=== PATIENT | female | born 1965 | race Caucasian/White ===

== ENCOUNTER → 2022-10-05 | Outpatient (CLI) | payer OTHER ==
[2022-10-05 14:31] VITALS: BP 128/80; PULSE 55; TEMP 97.7; BMI 47.8
--- NOTE | 2022-10-05 16:00 | P.HPBAR ---
Bariatric H&P - History & Physicial H&P Date: 10/05/22 History & Physicial: Visit/CC: initial clinic visit Patient initial contact: Initial weight: Initial weight in pounds: Height: 5 ft 3 in Initial BMI: Last weight: Current weight: 122.47 kg Current weight in pounds: 270.00 Current BMI: 47.8 [place] body weight (based on NIH guidelines): 52.163 kg Excess body weight loss: The patient is a 56 year-old F who presents for Bariatric Assessment. Patient presents interested in sleeve gastrectomy. Patient with significant morbidities. Follows with her primary care physician, pulmonary, and cardiology. Had a myocardial infarction requiring stent placement approximately one year ago. Patient with underlying COPD and asthma. States she has gained 120 pounds over the last 2-3 years because of her steroid use for COPD. Additional medical issues include atrial fibrillation, hypertension, hypercholesterolemia, gallstones, GERD, chronic back pain. Patient had previous sleep apnea studding that was normal. She is a history of previous alcohol and drug abuse history with sobriety for the last 3 years. She rarely smokes a cigarette but used to be a heavy smoker. No history of liver disease. States she has borderline diabetes with a A1c of 5.9. No previous abdominal surgeries. No previous DVT or dysphagia. She has not had an upper endoscopy. Patient is on eloquis and Plavix. Patient is on home oxygen usually 2 L but sometimes up to 3 L. Review of Systems The patient denies any acute changes in vision or hearing, no dysphagia or odynophagia, no chest pain or shortness of breath, no dysuria or hematuria, no headache, no runny nose, no rectal bleeding or melena, no unexplained weight loss Past Medical History History of Any Multi-Drug Resistant Organisms: None Reported Smoking Status: Current some day smoker Surgical - Exam Vital Signs Temp Pulse BP 97.7 F 55 L 128/80 10/05/22 14:24 10/05/22 14:24 10/05/22 14:24 Physical exam: General: Well-developed, well-nourished HEENT: Normocephalic, sclerae nonicteric Abdomen: Nontender, nondistended Extremities: No edema Neuro: Alert and oriented Bariatric Assessment & Plan (1) Morbid obesity with BMI of 45.0-49.9, adult Narrative/Plan: 6-year-old female with morbid obesity and associated comorbidities. Surgical options reviewed with the patient in detail. Risks and benefits of the procedures along with the expected postoperative course and weight loss discussed in detail. All questions answered. The patient remains interested in sleeve gastrectomy at this time. The patient certainly higher risk given the numerous comorbidities. 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 She states there interested in her proceeding with bariatric surgery. We'll plan preoperative EGD. We'll obtain appropriate preoperative documentation from patient's primary care physician, binder coverstitch, payroll machine operator, and psychological assessment. Status: Acute Bariatric Checklist Checklist: Plan: Checklist: EGD: 1. Hiatal hernia: 2. H. Pylori: HgbA1c: Vitamin D: Smoking: Primary care physician referral: dr ashraf Psychiatry clearance: Cardiology clearance: Sleep study: Diet journal: VTE risk score: VTE risk level: Rehab needs at discharge:
== END | disposition home or self-care (01) ==
LOC: BARWHC3 13:44
PROVIDERS: ATTEND Surgery
DX: E66.01 Morbid (severe) obesity due to excess calories (principal); J44.9 Chronic obstructive pulmonary disease, unspecified; E78.00 Pure hypercholesterolemia, unspecified; I48.91 Unspecified atrial fibrillation; I10 Essential (primary) hypertension; K21.9 Gastro-esophageal reflux disease without esophagitis; K80.20 Calculus of gallbladder without cholecystitis without obstruction; M54.9 Dorsalgia, unspecified; F17.210 Nicotine dependence, cigarettes, uncomplicated; Z68.42 Body mass index [BMI] 45.0-49.9, adult; Z98.84 Bariatric surgery status
CPT/HCPCS: 99202

== ENCOUNTER → 2022-10-05 | Outpatient (CLI) | payer OTHER ==
[2022-10-06 02:03] LABS: HCT 42.7 % (37.2-46.3); HGB 12.6 g/dL (12.0-15.0); MCH 27.6 pg (27.0-32.0); MCHC 29.5 g/dL (32.0-37.0); MCV 93.6 fL (80.0-97.0); Mean Platelet Volume 10.7 fL (9.5-12.2); NRBC Per 100 WBC 0 /100 WBCS (0.0-0.0); Platelet Count 255 X 10*3/uL (140-440); RBC 4.56 X 10*6/uL (4.10-5.20); RDW 15.9 % (11.5-14.5); WBC 10.44 X 10*3/uL (4.50-10.00)
[2022-10-06 09:36] LABS: African American GFR (CKD) 118.9 (60.0-200.0); Albumin/Globulin Ratio 1.48 (1.60-3.17); Anion Gap 11.5 mmol/L (10.00-18.00); BUN/Creat Ratio 20.5 Ratio (12.00-20.00); Blood Urea Nitrogen 12.3 mg/dL (9.0-27.0); Calcium 9.3 mg/dL (8.7-10.3); Carbon Dioxide 29.5 mmol/L (20.0-27.5); Globulin 2.7 g/dL (1.6-3.3); Non-African American GFR(CKD) 102.6 (60.0-200.0); Potassium 4.1 mmol/L (3.5-5.5); Total Bilirubin 0.4 mg/dL (0.30-1.20); Total Protein 6.7 g/dL (6.2-8.2)
== END | disposition home or self-care (01) ==
LOC: LABWHC1 15:17
PROVIDERS: ATTEND Surgery
DX: E66.01 Morbid (severe) obesity due to excess calories (principal); K90.89 Other intestinal malabsorption; E55.9 Vitamin D deficiency, unspecified
CPT/HCPCS: 36415; 80053; 82306; 82607; 82746; 83036; 83540; 84425; 85027; 93005

== ENCOUNTER 2022-12-05 10:45 | Day surgery (SDC) | payer OTHER ==
[2022-11-30 12:31] VITALS: BMI 48.6
[~2022-12-05 10:45] MED LIST: LACTATED RINGERS 1,000 ML IV SCH; LIDOCAINE 1% (10MG/ML) FOR IV START INTRADERMA PRN
[2022-12-05 11:53] VITALS: TEMP 98.6
[2022-12-05] MEDS ORDERED: PROPOFOL 10 MG/ML 20 ML VIAL IV ONE (12:12)
[2022-12-05] MEDS ORDERED: KETAMINE 10 MG/ML 20 ML VIAL ONE (12:12)
--- NOTE | 2022-12-05 12:15 | P.GSHP ---
History of Present Illness H&P Date: 12/05/22 Chief Complaint: GERD 57-year-old female here today for EGD. Patient being evaluated for possible sleeve gastrectomy. Patient with chronic reflux symptoms. Past Medical History Past Medical History: Atrial Fibrillation, Asthma, COPD, Hyperlipidemia, Hypertension, Myocardial Infarction ([place]), Respiratory Disorder Additional Past Medical History / Comment(s): wears oxygen 3lnc when mobile Last Myocardial Infarction Date:: 2021 History of Any Multi-Drug Resistant Organisms: None Reported Past Surgical History: Heart Catheterization With Stent, Orthopedic Surgery Additional Past Surgical History / Comment(s): metal plate right arm, oral surgery fracture jawed,hx gallstones Past Anesthesia/Blood Transfusion Reactions: No Reported Reaction Additional Past Anesthesia/Blood Transfusion Reaction / Comment(s): No blood transfusion Date of Last Stent Placement:: 2021 Smoking Status: Current some day smoker - Past Family History Mother Family Medical History: Cancer Additional Family Medical History / Comment(s): uterine, breast, lymph nodes Medications and Allergies Home Medications Medication Instructions Recorded Confirmed Type Apixaban [Eliquis] 5 mg PO BID 10/26/22 12/05/22 History Atorvastatin [Lipitor] 40 mg PO HS 10/26/22 12/05/22 History Cetirizine HCl 10 mg PO DAILY 10/26/22 11/30/22 History Clopidogrel [Plavix] 75 mg PO DAILY 10/26/22 11/30/22 History Ergocalciferol [Vitamin D2 (1250 50,000 unit PO WEEKLY 10/26/22 12/05/22 History Mcg = 11032 Iu)] FLUoxetine HCL [PROzac] 40 mg PO DAILY 10/26/22 12/05/22 History Folic Acid 1 mg PO DAILY 10/26/22 12/05/22 History Gabapentin [Neurontin] 300 mg PO BID 10/26/22 12/05/22 History HYDROcodone/APAP 5-325MG [[place] 1 tab PO TID 10/26/22 12/05/22 History 5-325] Metoprolol Tartrate [Lopressor] 50 mg PO BID 10/26/22 11/30/22 History Mirtazapine [Remeron] 15 mg PO HS 10/26/22 12/05/22 History Montelukast [Singulair] 10 mg PO DAILY 10/26/22 12/05/22 History Omeprazole [PriLOSEC] 20 mg PO DAILY 10/26/22 11/30/22 History lisinopriL [Zestril] 10 mg PO DAILY 10/26/22 11/30/22 History Fluticasone/Umeclidin/Vilanter 1 inhalation INHALATION DAILY 11/30/22 11/30/22 History [Trelegy Ellipta 100-62.5-25] Liraglutide [Saxenda] 0.6 mg SQ DAILY 11/30/22 12/05/22 History Allergies Allergy/AdvReac Type Severity Reaction Status Date / Time NSAIDS (Non-Steroidal Allergy Rash/Hives Verified 12/05/22 11:49 Anti-Inflamma tetracycline Allergy Rash/Hives Verified 12/05/22 11:49 Surgical - Exam Vital Signs Temp Pulse Resp BP Pulse Ox 98.6 F 79 22 119/73 95 12/05/22 11:52 12/05/22 11:52 12/05/22 11:52 12/05/22 11:52 12/05/22 11:52 Physical exam: General: Well-developed, well-nourished HEENT: Normocephalic, sclerae nonicteric Abdomen: Nontender, nondistended Extremities: No edema Neuro: Alert and oriented Assessment and Plan (1) GERD (gastroesophageal reflux disease) Narrative/Plan: Will proceed with upper endoscopy Current Visit: Yes Status: Acute Code(s): K21.9 - GASTRO-ESOPHAGEAL REFLUX DISEASE WITHOUT ESOPHAGITIS SNOMED Code(s): 935626748
--- NOTE | 2022-12-05 12:26 | P.PCN ---
Date of Procedure: 12/05/22 Procedure(s) Performed: Preoperative Dx: GERD, presurgical Postoperative Dx: Mild gastritis Procedure: EGD with Bx Anesthesia: Sedation Endoscopist: Dr. uLgo Specimens: Antrum Endoscopic Procedure: The patient was on the endoscopy table in the left decubitus position. The Olympus gastroscope was inserted into the oropharynx and passed under direct visualization to the region of the third portion of the duodenum. From that point the scope was slowly withdrawn inspecting all surfaces carefully. There were no neoplastic inflammatory or polypoid lesions throughout the duodenum. The pylorus was widely patent. The stomach was carefully inspected. There was mild gastritis present. A biopsy of the antrum took place to rule out H. pylori. Retroflexion revealed a normal hiatus. The esophagus was then carefully examined. There were no neoplastic inflammatory or polypoid lesions throughout the visualized esophagus. The patient was then taken to the recovery room in stable condition per anesthesia guidelines. Recommendations: Await biopsy results. Continue preoperative workup.
[2022-12-05 12:37] VITALS: RESP 16
[2022-12-05 13:09] VITALS: BP 110/71; PULSE 85
== END 2022-12-05 13:36 | disposition home or self-care (01) ==
LOC: ORWHC2ENDO 10:45
PROVIDERS: ATTEND Surgery
DX: K29.50 Unspecified chronic gastritis without bleeding (principal); K21.9 Gastro-esophageal reflux disease without esophagitis; I48.91 Unspecified atrial fibrillation; J44.9 Chronic obstructive pulmonary disease, unspecified; E78.5 Hyperlipidemia, unspecified; I10 Essential (primary) hypertension; I25.2 Old myocardial infarction; F17.200 Nicotine dependence, unspecified, uncomplicated; Z80.3 Family history of malignant neoplasm of breast; Z79.01 Long term (current) use of anticoagulants; Z79.899 Other long term (current) drug therapy
CPT/HCPCS: 88305; 43239; J2704

== ENCOUNTER 2023-06-21 08:45 | Inpatient (IN) | payer OTHER ==
[2023-06-21 09:14] LABS: Basophils % (A) 0 %; Eosinophils # (A) 0.1 k/uL (0-0.7); Eosinophils % (A) 1 %; HCT 43.4 % (34.0-46.0); HGB 13.4 gm/dL (11.4-16.0); Hypochromasia Marked; Lymphocytes % (A) 8 %; MCH 27.8 pg (25.0-35.0); MCHC 30.9 g/dL (31.0-37.0); Mean Platelet Volume 7.9; Monocytes # (A) 0.4 k/uL (0-1.0); Monocytes % (A) 4 %; Neutrophils # (A) 10.3 k/uL (1.3-7.7); Neutrophils % (A) 87 %; Platelet Count 280 k/uL (150-450); RBC 4.82 m/uL (3.80-5.40); RDW 14.5 % (11.5-15.5); WBC 11.9 k/uL (3.8-10.6)
--- NOTE | 2023-06-21 09:17 | ED ---
General Adult HPI - General Stated complaint: YADIRA Time Seen by Provider: 06/21/23 08:48 Source: patient, RN notes reviewed Mode of arrival: EMS Limitations: no limitations - History of Present Illness Initial comments: 57-year-old female presents emergency department via EMS chief complaint of dyspnea. Patient states she has COPD she states she was a smoker up until 3 days ago. Patient states that she has mildly productive cough. She does have a history of A-fib. She states that she did take her Eliquis and metoprolol this morning. She denies any nausea vomit diarrhea constipation no leg swelling she states nothing is improving her breathing she did have a DuoNeb treatment and steroids prior to arrival via EMS. - Related Data Home Medications Medication Instructions Recorded Confirmed Apixaban [Eliquis] 5 mg PO BID 10/26/22 12/05/22 Atorvastatin [Lipitor] 40 mg PO HS 10/26/22 12/05/22 Cetirizine HCl 10 mg PO DAILY 10/26/22 11/30/22 Clopidogrel [Plavix] 75 mg PO DAILY 10/26/22 11/30/22 Ergocalciferol [Vitamin D2 (1250 50,000 unit PO WEEKLY 10/26/22 12/05/22 Mcg = 73235 Iu)] FLUoxetine HCL [PROzac] 40 mg PO DAILY 10/26/22 12/05/22 Folic Acid 1 mg PO DAILY 10/26/22 12/05/22 Gabapentin [Neurontin] 300 mg PO BID 10/26/22 12/05/22 HYDROcodone/APAP 5-325MG [[place] 1 tab PO TID 10/26/22 12/05/22 5-325] Metoprolol Tartrate [Lopressor] 50 mg PO BID 10/26/22 11/30/22 Mirtazapine [Remeron] 15 mg PO HS 10/26/22 12/05/22 Montelukast [Singulair] 10 mg PO DAILY 10/26/22 12/05/22 Omeprazole [PriLOSEC] 20 mg PO DAILY 10/26/22 11/30/22 lisinopriL [Zestril] 10 mg PO DAILY 10/26/22 11/30/22 Fluticasone/Umeclidin/Vilanter 1 inhalation INHALATION DAILY 11/30/22 11/30/22 [Trelegy Ellipta 100-62.5-25] Liraglutide [Saxenda] 0.6 mg SQ DAILY 11/30/22 12/05/22 Allergies Allergy/AdvReac Type Severity Reaction Status Date / Time ibuprofen Allergy Rash/Hives Verified 06/21/23 08:58 NSAIDS (Non-Steroidal Allergy Rash/Hives Verified 12/05/22 11:49 Anti-Inflamma tetracycline Allergy Rash/Hives Verified 12/05/22 11:49 Review of Systems ROS Statement: Those systems with pertinent positive or pertinent negative responses have been documented in the HPI. ROS Other: All systems not noted in ROS Statement are negative. Past Medical History Past Medical History: Atrial Fibrillation, Asthma, COPD, Hyperlipidemia, Hypertension, Myocardial Infarction ([place]), Respiratory Disorder Additional Past Medical History / Comment(s): wears oxygen 3lnc when mobile Last Myocardial Infarction Date:: 2021 History of Any Multi-Drug Resistant Organisms: None Reported Past Surgical History: Heart Catheterization With Stent, Orthopedic Surgery Additional Past Surgical History / Comment(s): metal plate right arm, oral surgery fracture jawed,hx gallstones Past Anesthesia/Blood Transfusion Reactions: No Reported Reaction Additional Past Anesthesia/Blood Transfusion Reaction / Comment(s): No blood transfusion Date of Last Stent Placement:: 2021 Past Psychological History: Anxiety, Depression Smoking Status: Current some day smoker - Past Family History Mother Family Medical History: Cancer Additional Family Medical History / Comment(s): uterine, breast, lymph nodes General Exam Limitations: no limitations General appearance: alert, in no apparent distress Head exam: Present: atraumatic, normocephalic, normal inspection Eye exam: Present: normal appearance, PERRL, EOMI. Absent: scleral icterus, conjunctival injection, periorbital swelling ENT exam: Present: normal exam, normal oropharynx, mucous membranes moist Neck exam: Present: normal inspection, full ROM. Absent: tenderness, meningismus, lymphadenopathy Respiratory exam: Present: respiratory distress, wheezes. Absent: normal lung sounds bilaterally, rales, rhonchi, stridor Cardiovascular Exam: Present: normal heart sounds. Absent: tachycardia, irregular rhythm, systolic murmur, diastolic murmur, rubs, gallop, clicks Course Vital Signs 06/21/23 06/21/23 06/21/23 08:46 08:59 09:05 Temperature 101 F H Pulse Rate 129 H Respiratory 22 24 Rate Blood Pressure 128/110 O2 Sat by Pulse 90 L Oximetry Fraction of 60 Inspired Oxygen (FIO2) - Reevaluation(s) Reevaluation #1: 06/21/23 10:14 Patient was placed on BiPAP on arrival secondary to respiratory distress, no improvement after DuoNeb treatment. EKG Findings - EKG Comments: EKG Findings:: EKG performed at 8: 53 A-fib with RVR rate of 130 QRS 86 QT/QTc 274/351 - EKG Results: EKG: interpreted by EPIFANIO Medical Decision Making - Medical Decision Making I was pt. sent in by a medical professional or institution (, PA, CAR PRE COOLER, urgent care, hospital, or care home...) When possible be specific @ -No Did you speak to anyone other than the patient for history (EMS, parent, family, police, friend...)? What history was obtained from this source @ -EMS providing prehospital treatment, vitals Did you review nursing and triage notes (agree or disagree)? Why? @ -I reviewed and agree with nursing and triage notes Were old charts reviewed (outside hosp., previous admission, EMS record, old EKG, old radiological studies, urgent care reports/EKG's, care home records)? Report findings @ -No old charts were reviewed Differential Diagnosis (chest pain, altered mental status, abdominal pain women, abdominal pain men, vaginal bleeding, weakness, fever, dyspnea, syncope, headache, dizziness, GI bleed, back pain, seizure, CVA, palpatations, mental health, musculoskeletal)? @ -[Differential Dyspnea: Coronary syndrome, arrhythmia, tamponade, asthma, COPD, pulmonary embolism, pneumonia, pneumothorax, pulmonary effusion, anaphylaxis, diabetic ketoacidosis, flailed chest, pulmonary contusion, diaphragmatic rupture, anemia, neuromuscular, this is not meant to be an all-inclusive list. EKG interpreted by me (3pts min.). @ -As above X-rays interpreted by me (1pt min.). @ -Chest x-ray 1 view showing diffuse COPD changes, mild congestion, possible pulmonary edema CT interpreted by me (1pt min.). @ -None done U/S interpreted by me (1pt. min.). @ -None done What testing was considered but not performed or refused? (CT, X-rays, U/S, labs)? Why? @ -None What meds were considered but not given or refused? Why? @ -None Did you discuss the management of the patient with other professionals (ofelia sullivan i.e. , PA, CAR PRE CO[employer]ER, lab, RT, psych nurse, social professionals, manager protein, teacher, workplace rehabilitation officer, correctional casework specialist)? Give summary @ -[Sound physician for admission secondary to acute respiratory failure, requiring BiPAP, COPD exacerbation with A-fib RVR Was smoking cessation discussed for >3mins.? @ -I discussed smoking cessation for greater than 3 minutes. The risk of smoking were discussed with the patient including but not limited to risks of cancer, stroke, coronary artery disease and COPD. Also discussed with patient were multiple methods of quitting smoking. Lastly we discussed the financial cost of smoking. Was critical care preformed (if so, how long)? @ -35 minutes Were there social determinants of health that impacted care today? How? (Homelessness, low income, unemployed, alcoholism, drug addiction, transportation, low edu. Level, literacy, decrease access to med. care, correction, rehab)? @ -No Was there de-escalation of care discussed even if they declined (Discuss DNR or withdrawal of care, Hospice)? DNR status @ -No What co-morbidities impacted this encounter? (DM, HTN, Smoking, COPD, CAD, Cancer, CVA, ARF, Chemo, Hep., AIDS, mental health diagnosis, sleep apnea, morbid obesity)? @ -[COPD Was patient admitted / discharged? Hospital course, mention meds given and route, prescriptions, significant lab abnormalities, going to OR and other pertinent info. @ -Admitted patient presented in acute respiratory distress, respiratory failure patient was placed on BiPAP. Patient found to be in A-fib RVR with a history of A-fib. She is anticoagulated on Eliquis. Patient's fever was treated with Jun Mab. Patient was placed on Cardizem initial bolus, infusion. Patient is RSV positive patient will remain on BiPAP with consult to cardiology, pulmonology. Undiagnosed new problem with uncertain prognosis? @ -No Drug Therapy requiring intensive monitoring for toxicity (Heparin, Nitro, Insulin, Cardizem)? @ -No Were any procedures done? @ -No Diagnosis/symptom? @ -[A-fib RVR, COPD exacerbation, RSV with acute respiratory failure Acute, or Chronic, or Acute on Chronic? @ -Acute Uncomplicated (without systemic symptoms) or Complicated (systemic symptoms)? @ -Complicated Side effects of treatment? @ -[No Exacerbation, Progression, or Severe Exacerbation? @ -COPD exacerbation Poses a threat to life or bodily function? How? (Chest pain, [place], [place], pneumonia, PE, COPD, DKA, ARF, appy, cholecystitis, CVA, Diverticulitis, Homicidal, Suicidal, threat to staff... and all critical care pts) @ -Yes patient has respiratory distress, A-fib RVR, - Lab Data Result diagrams: 06/21/23 09:01 06/21/23 09:01 Lab Results 06/21/23 06/21/23 06/21/23 Range/Units 09:01 09:01 09:01 WBC 11.9 H (3.8-10.6) k/uL RBC 4.82 (3.80-5.40) m/uL Hgb 13.4 (11.4-16.0) gm/dL Hct 43.4 (34.0-46.0) % MCV 90.0 (80.0-100.0) fL MCH 27.8 (25.0-35.0) pg MCHC 30.9 L (31.0-37.0) g/dL RDW 14.5 (11.5-15.5) % Plt Count 280 (150-450) k/uL MPV 7.9 Neutrophils % 87 % Lymphocytes % 8 % Monocytes % 4 % Eosinophils % 1 % Basophils % 0 % Neutrophils # 10.3 H (1.3-7.7) k/uL Lymphocytes # 1.0 (1.0-4.8) k/uL Monocytes # 0.4 (0-1.0) k/uL Eosinophils # 0.1 (0-0.7) k/uL Basophils # 0.0 (0-0.2) k/uL Hypochromasia Marked PT 10.8 (10.0-12.5) sec INR 1.0 (<1.2) APTT 28.2 (22.0-30.0) sec Sodium 143 (137-145) mmol/L Potassium 3.7 (3.5-5.1) mmol/L Chloride 110 H (98-107) mmol/L Carbon Dioxide 29 (22-30) mmol/L Anion Gap 4 mmol/L BUN 15 (7-17) mg/dL Creatinine 0.43 L (0.52-1.04) mg/dL Est GFR (CKD-EPI)AfAm >90 (>60 ml/min/1.73 sqM) Est GFR (CKD-EPI)NonAf >90 (>60 ml/min/1.73 sqM) Glucose 106 H (74-99) mg/dL Plasma Lactic Acid Rom (0.7-2.0) mmol/L Calcium 8.3 L (8.4-10.2) mg/dL Magnesium 1.7 (1.6-2.3) mg/dL Total Bilirubin 0.5 (0.2-1.3) mg/dL AST 23 (14-36) U/L ALT 21 (4-34) U/L Alkaline Phosphatase 104 (38-126) U/L Troponin I (0.000-0.034) ng/mL NT-Pro-B Natriuret Pep 2910 pg/mL Total Protein 6.4 (6.3-8.2) g/dL Albumin 3.4 L (3.5-5.0) g/dL Influenza Type A (PCR) (Not Detectd) Influenza Type B (PCR) (Not Detectd) RSV (PCR) (Not Detectd) SARS-CoV-2 (PCR) (Not Detectd) 06/21/23 06/21/23 06/21/23 Range/Units 09:01 09:01 09:01 WBC (3.8-10.6) k/uL RBC (3.80-5.40) m/uL Hgb (11.4-16.0) gm/dL Hct (34.0-46.0) % MCV (80.0-100.0) fL MCH (25.0-35.0) pg MCHC (31.0-37.0) g/dL RDW (11.5-15.5) % Plt Count (150-450) k/uL MPV Neutrophils % % Lymphocytes % % Monocytes % % Eosinophils % % Basophils % % Neutrophils # (1.3-7.7) k/uL Lymphocytes # (1.0-4.8) k/uL Monocytes # (0-1.0) k/uL Eosinophils # (0-0.7) k/uL Basophils # (0-0.2) k/uL Hypochromasia PT (10.0-12.5) sec INR (<1.2) APTT (22.0-30.0) sec Sodium (137-145) mmol/L Potassium (3.5-5.1) mmol/L Chloride (98-107) mmol/L Carbon Dioxide (22-30) mmol/L Anion Gap mmol/L BUN (7-17) mg/dL Creatinine (0.52-1.04) mg/dL Est GFR (CKD-EPI)AfAm (>60 ml/min/1.73 sqM) Est GFR (CKD-EPI)NonAf (>60 ml/min/1.73 sqM) Glucose (74-99) mg/dL Plasma Lactic Acid Rom 1.2 (0.7-2.0) mmol/L Calcium (8.4-10.2) mg/dL Magnesium (1.6-2.3) mg/dL Total Bilirubin (0.2-1.3) mg/dL AST (14-36) U/L ALT (4-34) U/L Alkaline Phosphatase (38-126) U/L Troponin I <0.012 (0.000-0.034) ng/mL NT-Pro-B Natriuret Pep pg/mL Total Protein (6.3-8.2) g/dL Albumin (3.5-5.0) g/dL Influenza Type A (PCR) Not Detected (Not Detectd) Influenza Type B (PCR) Not Detected (Not Detectd) RSV (PCR) Detected A (Not Detectd) SARS-CoV-2 (PCR) Not Detected (Not Detectd) Critical Care Time Critical Care Time: Yes Total Critical Care Time: 35 Disposition Clinical Impression: RSV (acute bronchiolitis due to respiratory syncytial virus), COPD (chronic obstructive pulmonary disease), Acute respiratory failure, Atrial fibrillation with RVR Disposition: ADMITTED IP TO THIS HOSP Condition: Serious Referrals: Sugey Chester MD [Primary Care Provider] - 1-2 days Time of Disposition: 10:17
--- NOTE | 2023-06-21 09:23 | XR ---
EXAMINATION TYPE: XR chest 1V portable DATE OF EXAM: 06/21/2023 9:15 AM CLINICAL INDICATION:Female, 57 years old with history of SOB; [facility] COMPARISON: None TECHNIQUE: XR chest 1V portable Frontal view of the chest. FINDINGS: Lungs/Pleura: Low lung volumes are present. There is no evidence of pleural effusion, focal consolida tion, or pneumothorax. Pulmonary vascularity: Pulmonary vascular congestion. Heart/mediastinum: Cardiomediastinal silhouette is prominent in size. Musculoskeletal: No acute osseous pathology. IMPRESSION: Low lung volumes with a generalized hazy appearance which could represent atelectasis versus pulmonar y edema.
[2023-06-21] MEDS ORDERED: ACETAMINOPHEN IV (For NPO) 1,000 MG in EMPTY BAG 1 BAG IVPB STA (09:26)
[2023-06-21 09:28] LABS: ALT 21 U/L (4-34); AST 23 U/L (14-36); African American GFR (CKD) >90 (>60 ml/min/1.73 sqM); Albumin 3.4 g/dL (3.5-5.0); Alkaline Phosphatase 104 U/L (38-126); Anion Gap 4 mmol/L; Blood Urea Nitrogen 15 mg/dL (7-17); Calcium 8.3 mg/dL (8.4-10.2); Carbon Dioxide 29 mmol/L (22-30); Chloride 110 mmol/L (98-107); Glucose 106 mg/dL (74-99); Magnesium 1.7 mg/dL (1.6-2.3); Non-African American GFR(CKD) >90 (>60 ml/min/1.73 sqM); Potassium 3.7 mmol/L (3.5-5.1); Sodium 143 mmol/L (137-145); Total Bilirubin 0.5 mg/dL (0.2-1.3); Total Protein 6.4 g/dL (6.3-8.2)
[2023-06-21] MEDS ORDERED: DILTIAZEM DRIP BOLUS FROM BAG 1 MG SOLN IV ONE (09:28)
[2023-06-21 09:34] LABS: Partial Thromboplastin Time 28.2 sec (22.0-30.0); Prothrombin Time 10.8 sec (10.0-12.5)
[2023-06-21 09:36] LABS: NT-Pro-B-Type Natriuretic Pept 2910 pg/mL
[2023-06-21] MEDS: DILTIAZEM 125 MG in SODIUM CHLORIDE 0.9% 100 ML IV SCH (10:13)
[2023-06-21] MEDS ORDERED: ACETAMINOPHEN TAB 325 MG TAB PO PRN (10:17)
[2023-06-21] MEDS ORDERED: IPRATROPIUM-ALBUTEROL 3 ML NEB INHALATION PRN (10:17)
[2023-06-21] MEDS ORDERED: NALOXONE 0.4 MG/ML 1 ML VIAL IVP PRN (10:17)
[2023-06-21] MEDS: IPRATROPIUM-ALBUTEROL 3 ML NEB INHALATION SCH ×3 (11:20→19:38)
--- NOTE | 2023-06-21 12:12 | P.CRDCN ---
History of Present Illness History of present illness: HISTORY OF PRESENT ILLNESS: This is a 57-year-old female with a past medical history significant for coronary artery disease, paroxysmal atrial fibrillation, hypertension, hyperlipidemia, COPD, and nicotine dependence. Patient follows in the office with Dr. Owens. We have been asked to see the patient in consultation for A-fib RVR. Patient examined at the bedside in the emergency room. Patient states she has been feeling short of breath for the past 3 to 4 days. She decided to come to the emergency room for further evaluation. The patient was found to be positive for RSV. She is also being treated for a COPD exacerbation. She denies any chest pain or pressure. She is currently on a BiPAP and reports improvement in her shortness of breath. Patient was also found to be A-fib with RVR. She does have a known history of atrial fibrillation. She was started on IV Cardizem for rate control. She does report mild palpitations at the time of examination. Patient does report she is a current smoker. She states that she has not had a cigarette in about 4 days and is attempting to quit. The patient does report a history of coronary artery disease. She states that she had a heart attack in 2021. She reports undergoing a cardiac catheterization at that time at [facility]. She believes she had a stent placed at that time. The details of this are unknown at this time. DIAGNOSTICS: EKG reveals A-fib with RVR Chest xray low lung volumes with generalized hazy appearance could represent atelectasis versus pulmonary edema Laboratory data: WBC 11.9. Hemoglobin 13.4. Platelet count 280. Sodium 143. Potassium 3.7. BUN 15. Creatinine 0.43. Lactic acid 1.2. Troponin negative x 1. proBNP 2910. Current home cardiac medications include Eliquis 5 mg twice a day, Lipitor 40 mg at night, lisinopril 5 mg daily, metoprolol tartrate 50 mg twice a day Most recent echocardiogram obtained in August 2021 revealing ejection fraction 55%, mild to moderate mitral regurgitation, mild tricuspid regurgitation Cardiac catheterization history: 2021 per patient, however records are unavailable at this time. REVIEW OF SYSTEMS: At the time of my exam: CONSTITUTIONAL: Denies fever or chills. HEENT: Denies blurred vision, vision changes, or eye pain. Denies hemoptysis CARDIOVASCULAR: Denies chest pain. Denies orthopnea. Denies PND. Denies palpitations RESPIRATORY: Denies shortness of breath. GASTROINTESTINAL: Denies abdominal pain. Denies nausea or vomiting. HEMATOLOGIC: Denies bleeding disorders. GENITOURINARY: Denies any blood in urine. SKIN: Denies pruitis. Denies rash. PHYSICAL EXAM: VITAL SIGNS: Reviewed. GENERAL: Well-developed in no acute distress. HEENT: Head is normocephalic. Pupils are equal, round. Sclerae anicteric. Mucous membranes of the mouth are moist. Neck supple. No JVD or thyromegaly LUNGS: Respirations even and unlabored, currently on BiPAP. Lungs with expiratory wheezing noted throughout HEART: Tachycardic. Irregular rate and rhythm. S1 and S2 heard. Distant heart sounds. ABDOMEN: Soft. Nondistended. Nontender. EXTREMITIES: Normal range of motion. No clubbing or cyanosis. Peripheral pulses intact. Trace bilateral extremity edema NEUROLOGIC: Awake and alert. Oriented x 3. ASSESSMENT: Shortness of breath Acute COPD exacerbation Acute RSV infection Paroxysmal atrial fibrillation with RVR Acute on chronic hypoxic respiratory failure, currently on BiPAP, patient on oxygen outpatient Coronary artery disease with previous PCI, details unknown Hypertension Hyperlipidemia Nicotine dependence, patient states she quit smoking 4 days ago Morbid obesity: BMI 49.6 PLAN: Obtain 2D echo to assess cardiac structure and function Resume home cardiac medications Increase metoprolol to tartrate to 75 mg twice daily Continue IV Cardizem for rate control Continue telemetry monitoring Continue anticoagulation with Eliquis Obtain records from [facility] regarding patient's previous PCI Further recommendations pending patient course Nurse practitioner note has been reviewed by physician. Signing provider agrees with the documented findings, assessment, and plan of care documented by MANAGEMENT MANAGER as a scribe. Past Medical History Past Medical History: Atrial Fibrillation, Asthma, COPD, Hyperlipidemia, Hypertension, Myocardial Infarction ([place]), Respiratory Disorder Additional Past Medical History / Comment(s): wears oxygen 3lnc when mobile Last Myocardial Infarction Date:: 2021 History of Any Multi-Drug Resistant Organisms: None Reported Past Surgical History: Heart Catheterization With Stent, Orthopedic Surgery Additional Past Surgical History / Comment(s): metal plate right arm, oral surgery fracture jawed,hx gallstones Past Anesthesia/Blood Transfusion Reactions: No Reported Reaction Additional Past Anesthesia/Blood Transfusion Reaction / Comment(s): No blood transfusion Date of Last Stent Placement:: 2021 Past Psychological History: Anxiety, Depression Smoking Status: Current some day smoker - Past Family History Mother Family Medical History: Cancer Additional Family Medical History / Comment(s): uterine, breast, lymph nodes Medications and Allergies Home Medications Medication Instructions Recorded Confirmed Type Apixaban [Eliquis] 5 mg PO BID 10/26/22 06/21/23 History Atorvastatin [Lipitor] 40 mg PO HS 10/26/22 06/21/23 History Cetirizine HCl 10 mg PO DAILY 10/26/22 06/21/23 History FLUoxetine HCL [PROzac] 40 mg PO DAILY 10/26/22 06/21/23 History Folic Acid 1 mg PO DAILY 10/26/22 06/21/23 History Gabapentin [Neurontin] 300 mg PO BID 10/26/22 06/21/23 History HYDROcodone/APAP 5-325MG [[place] 1 tab PO TID 10/26/22 06/21/23 History 5-325] Metoprolol Tartrate [Lopressor] 50 mg PO BID 10/26/22 06/21/23 History Mirtazapine [Remeron] 15 mg PO HS 10/26/22 06/21/23 History Montelukast [Singulair] 10 mg PO DAILY 10/26/22 06/21/23 History Amoxic-Pot Clav 875-125Mg 1 tab PO Q12HR 06/21/23 06/21/23 History [Augmentin 875-125] Dulaglutide [Trulicity] 1.5 mg SQ SA 06/21/23 06/21/23 History Ergocalciferol [Vitamin D2 (1250 1,250 mcg PO SA 06/21/23 06/21/23 History Mcg = 91900 Iu)] Ipratropium-Albuterol Nebulize 3 ml INHALATION RT-QID 06/21/23 06/21/23 History [Duoneb 0.5 mg-3 mg/3 ml Soln] Omeprazole 20 mg PO DAILY 06/21/23 06/21/23 History lisinopriL [Zestril] 5 mg PO DAILY 06/21/23 06/21/23 History predniSONE [Deltasone] 40 mg PO DAILY 06/21/23 06/21/23 History Allergies Allergy/AdvReac Type Severity Reaction Status Date / Time ibuprofen Allergy Rash/Hives Verified 06/21/23 11:38 NSAIDS (Non-Steroidal Allergy Rash/Hives Verified 06/21/23 11:38 Anti-Inflamma tetracycline Allergy Rash/Hives Verified 06/21/23 11:38 Physical Exam Vitals: Vital Signs Temp Pulse Resp BP Pulse Ox FiO2 06/21/23 11:30 100 06/21/23 11:24 101 H 60 06/21/23 11:02 100.1 F H 108 H 26 H 110/64 94 L 06/21/23 10:19 125 H 132/83 93 L 06/21/23 09:05 60 06/21/23 08:59 24 06/21/23 08:46 101 F H 129 H 22 128/110 90 L Intake and Output 06/20/23 06/21/23 06/21/23 22:59 06:59 14:59 Other: Weight 127.006 kg Results 06/21/23 09:01 06/21/23 09:01 Cardiac Enzymes 06/21/23 06/21/23 Range/Units 09:01 09:01 AST 23 (14-36) U/L Troponin I <0.012 (0.000-0.034) ng/mL Coagulation 06/21/23 Range/Units 09:01 PT 10.8 (10.0-12.5) sec APTT 28.2 (22.0-30.0) sec CBC 06/21/23 Range/Units 09:01 WBC 11.9 H (3.8-10.6) k/uL RBC 4.82 (3.80-5.40) m/uL Hgb 13.4 (11.4-16.0) gm/dL Hct 43.4 (34.0-46.0) % Plt Count 280 (150-450) k/uL Comprehensive Metabolic Panel 06/21/23 Range/Units 09:01 Sodium 143 (137-145) mmol/L Potassium 3.7 (3.5-5.1) mmol/L Chloride 110 H (98-107) mmol/L Carbon Dioxide 29 (22-30) mmol/L BUN 15 (7-17) mg/dL Creatinine 0.43 L (0.52-1.04) mg/dL Glucose 106 H (74-99) mg/dL Calcium 8.3 L (8.4-10.2) mg/dL AST 23 (14-36) U/L ALT 21 (4-34) U/L Alkaline Phosphatase 104 (38-126) U/L Total Protein 6.4 (6.3-8.2) g/dL Albumin 3.4 L (3.5-5.0) g/dL Current Medications Generic Name Dose Route Start Last Admin Trade Name Freq PRN Reason Stop Dose Admin Acetaminophen 650 mg 06/21/23 10:17 Acetaminophen Tab 325 Mg Tab PO Q4HR PRN Mild Pain or Fever > 100.5 Albuterol/Ipratropium 3 ml 06/21/23 12:00 06/21/23 11:20 Ipratropium-Albuterol 3 Ml Neb INHALATION 3 ml RT-QID SHAWNA Administration Albuterol/Ipratropium 3 ml 06/21/23 10:17 Ipratropium-Albuterol 3 Ml Neb INHALATION RT-Q2H PRN Shortness Of Breath Or Wheezing Apixaban 5 mg 06/21/23 21:00 Apixaban 5 Mg Tab PO BID [facility] Protocol Atorvastatin Calcium 40 mg 06/21/23 21:00 Atorvastatin 40 Mg Tab PO HS SHAWNA Diltiazem HCl 125 mg/ Sodium 125 mls @ 0 mls/hr 06/21/23 10:00 06/21/23 10:13 Chloride IV 5 mls/hr .Q0M SHAWNA 5 mls/hr Administration Protocol Per Protocol Lisinopril 10 mg 06/22/23 09:00 Lisinopril 10 Mg Tab PO DAILY [facility] Methylprednisolone Sodium Succinate 60 mg 06/21/23 12:00 Methylprednisolone Sod Succi 125 Mg/2 Ml Vial IV Q6HR [facility] Metoprolol Tartrate 75 mg 06/21/23 21:00 Metoprolol Tartrate 25 Mg Tab PO BID [facility] Naloxone HCl 0.2 mg 06/21/23 10:17 Naloxone 0.4 Mg/Ml 1 Ml Vial IVP Q2M PRN Opioid Reversal Intake and Output 06/20/23 06/21/23 06/21/23 22:59 06:59 14:59 Other: Weight 127.006 kg Patient Weight 06/22/23 06:59 Weight 127.006 kg 06/21/23 09:01 06/21/23 09:01
[2023-06-21] MEDS: methylPREDNISolone SOD SUCCI 125 MG/2 ML VIAL IV SCH ×2 (13:26→17:21)
[2023-06-21] MEDS: GABAPENTIN 300 MG CAP PO SCH ×2 (13:48→21:05)
[2023-06-21] MEDS: HYDROcodone/APAP 5-325MG 1 EACH TAB PO SCH ×2 (13:48→21:21)
[2023-06-21] MEDS ORDERED: DEXTROSE 50% SYRINGE 50 ML IVP PRN ×2 (14:16)
--- NOTE | 2023-06-21 14:20 | P.PN ---
Subjective Progress Note Date: 06/21/23 Patient is a 57-year-old female with a past medical history of COPD on 3 L nasal cannula, GERD, diabetes mellitus, atrial fibrillation, coronary artery disease status post stent in 2021, hypertension, hyperlipidemia who presents to the ED with shortness of breath for 5 days. Patient states that she had called her PCP 2 days ago because she knew that she was developing a bronchitis. Her PCP had prescribed her Augmentin and prednisone which she took for the past 2 days. Patient states that she was also was doing nebulizer treatment at home. She said that for the past 3-day her oxygen was in the 80s despite having increased her oxygen to 4 L. She states that her symptoms were not improving. This is what prompted her to come into the ED. In the ED patient was found to have RSV positive. Her WBC was 11.9. Patient was placed on BiPAP in the ED for difficulty in breathing. She was also found to have a fever 100.1. She was also found to be in A-fib with RVR. Chest x-ray showed low lung volumes with generalized hazy appearance which could represent atelectasis versus pulmonary edema. Patient was started on Cardizem drip. Patient states that she quit smoking 3 days ago. Patient then referred to admission and for further evaluation by cardiology and pulmonology. ROS: 10 ROS reviewed and are negative except as noted in HPI Physical exam General: [Alert and oriented, well nourished, no acute distress]. Eye: [PERRL, EOMI, normal conjunctiva]. HENT: [Normocephalic, clear tympanic membranes, normal hearing, moist oral mucosa, no scleral icterus, no sinus tenderness]. Neck: [Supple, non-tender, no carotid bruits, no JVD, no lymphadenopathy]. Lungs: [Bilateral wheezing, non-labored respiration]. Heart: [Normal rate, regular rhythm, no murmur, gallop, trace bilateral pitting edema]. Abdomen: [Soft, non-tender, non-distended, normal bowel sounds, no masses]. Morbidly obese Musculoskeletal: [Normal range of motion and strength, no tenderness or swell ing]. Skin: [Skin is warm, dry and pink, no rashes or lesions]. Neurologic: [Awake, alert, and oriented X3, CN II-XII intact]. Psychiatric: [Cooperative, appropriate mood and affect]. Assessment and plan RSV bronchitis Sepsis on admission with tachycardia and fever COPD exacerbation Acute on chronic hypoxic respiratory failure Patient on 2 to 3 L nasal cannula at home Continue with Solu-Medrol 60 mg every 6 hours, DuoNebs as needed and standing, azithromycin Wean off BiPAP as tolerated Pulmonology and cardiology consult A-fib with RVR Cardizem drip Cardiology increased patient's metoprolol to 75 mg p.o. twice daily Resume Eliquis Diabetes mellitus Hold home medications Will start the patient on Levemir 10 units at bedtime Sliding scale insulin Diabetic neuropathy Continue gabapentin Hypertension Resume home meds Hyperlipidemia Resume atorvastatin Anxiety depression Continue home meds DVT prophylaxis: Eliquis Objective - Vital Signs Vital signs: Vital Signs Temp 99 F 06/21/23 12:39 Pulse 109 H 06/21/23 12:39 Resp 26 H 06/21/23 11:02 BP 104/93 06/21/23 12:39 Pulse Ox 95 06/21/23 12:39 FiO2 60 06/21/23 11:24 Intake & Output 06/20/23 06/21/23 06/21/23 18:59 06:59 18:59 Weight 127.006 kg - Labs CBC & Chem 7: 06/21/23 09:01 06/21/23 09:01 Labs: Abnormal Lab Results - Last 24 Hours (Table) 06/21/23 06/21/23 06/21/23 Range/Units 09:01 09:01 09:01 WBC 11.9 H (3.8-10.6) k/uL MCHC 30.9 L (31.0-37.0) g/dL Neutrophils # 10.3 H (1.3-7.7) k/uL Chloride 110 H (98-107) mmol/L Creatinine 0.43 L (0.52-1.04) mg/dL Glucose 106 H (74-99) mg/dL Calcium 8.3 L (8.4-10.2) mg/dL Albumin 3.4 L (3.5-5.0) g/dL RSV (PCR) Detected A (Not Detectd)
[2023-06-21] MEDS: AZITHROMYCIN 500 MG TAB PO SCH (16:00)
--- NOTE | 2023-06-21 16:04 | P.CNPUL ---
History of Present Illness Consult date: 06/21/23 Requesting physician: Prakash Gomez Reason for consult: dyspnea, COPD, hypoxemia Chief complaint: Shortness of breath History of present illness: This is a pleasant 57-year-old female patient with a known history of chronic obstructive pulmonary disease, oxygen dependent, chronic and ongoing tobacco dependence of 44 years, atrial fibrillation anticoagulated with Eliquis, previous myocardial infarction, anxiety/depression. She presented here to the emergency room early this morning with complaints of a 4-day history of increasing shortness of breath cough congestion fever. She was found to be in atrial fibrillation with a rapid ventricular response. She was initiated on a Cardizem drip at 5 mg/h. She was hypoxemic requiring BiPAP support 12/5 and 60% FiO2. Chest x-ray reveals low lung volumes with generalized hazy appearance which could represent atelectasis versus pulmonary edema. White count 11.9. Hemoglobin 13.4. Platelets 280. Sodium 143. Potassium 3.7. Bicarb 29. BUN 15. Creatinine 0.43. Glucose 106. proBNP 2910. Troponin negative x 1. She is found to be positive for RSV. She is seen today in consultation in the emergency department. She is currently sitting up in the stretcher. Remains on BiPAP. Remains quite dyspneic with conversation. She is alert and oriented. She has been initiated on DuoNeb inhalations, Singulair, Solu-Medrol, antibiotic s in the form of azithromycin. Resumed on her Eliquis. Review of Systems REVIEW OF SYSTEMS: CONSTITUTIONAL: Denies any recent significant weight loss or weight gain. EYES: Denies change in vision. EARS, NOSE, MOUTH, THROAT: Denies headaches, denies sore throat. CARDIOVASCULAR: Denies chest pain, palpitations or syncopal episodes. RESPIRATORY: Positive for shortness of breath, cough, congestion no hemoptysis. GASTROINTESTINAL: Denies change in appetite, denies abdominal pain GENITOURINARY: Denies hematuria, denies infections. MUSKULOSKELETAL: Denies pain, denies swelling. INTEGUMENTARY: Denies rash, denies eczema. NEUROLOGICAL: Denies recent memory loss, no recent seizure activity. PSYCHIATRIC: Denies anxiety, denies depression. HEMATOLOGIC/LYMPHATIC: Denies anemia, denies enlarged lymph nodes. Past Medical History Past Medical History: Atrial Fibrillation, Asthma, COPD, Hyperlipidemia, Hypertension, Myocardial Infarction ([place]), Respiratory Disorder Additional Past Medical History / Comment(s): wears oxygen 3lnc when mobile Last Myocardial Infarction Date:: 2021 History of Any Multi-Drug Resistant Organisms: None Reported Past Surgical History: Heart Catheterization With Stent, Orthopedic Surgery Additional Past Surgical History / Comment(s): metal plate right arm, oral surgery fracture jawed,hx gallstones Past Anesthesia/Blood Transfusion Reactions: No Reported Reaction Additional Past Anesthesia/Blood Transfusion Reaction / Comment(s): No blood transfusion Date of Last Stent Placement:: 2021 Past Psychological History: Anxiety, Depression Smoking Status: Current some day smoker - Past Family History Mother Family Medical History: Cancer Additional Family Medical History / Comment(s): uterine, breast, lymph nodes Medications and Allergies Home Medications Medication Instructions Recorded Confirmed Type Apixaban [Eliquis] 5 mg PO BID 10/26/22 06/21/23 History Atorvastatin [Lipitor] 40 mg PO HS 10/26/22 06/21/23 History Cetirizine HCl 10 mg PO DAILY 10/26/22 06/21/23 History FLUoxetine HCL [PROzac] 40 mg PO DAILY 10/26/22 06/21/23 History Folic Acid 1 mg PO DAILY 10/26/22 06/21/23 History Gabapentin [Neurontin] 300 mg PO BID 10/26/22 06/21/23 History HYDROcodone/APAP 5-325MG [[place] 1 tab PO TID 10/26/22 06/21/23 History 5-325] Metoprolol Tartrate [Lopressor] 50 mg PO BID 10/26/22 06/21/23 History Mirtazapine [Remeron] 15 mg PO HS 10/26/22 06/21/23 History Montelukast [Singulair] 10 mg PO DAILY 10/26/22 06/21/23 History Amoxic-Pot Clav 875-125Mg 1 tab PO Q12HR 06/21/23 06/21/23 History [Augmentin 875-125] Dulaglutide [Trulicity] 1.5 mg SQ SA 06/21/23 06/21/23 History Ergocalciferol [Vitamin D2 (1250 1,250 mcg PO SA 06/21/23 06/21/23 History Mcg = 84039 Iu)] Ipratropium-Albuterol Nebulize 3 ml INHALATION RT-QID 06/21/23 06/21/23 History [Duoneb 0.5 mg-3 mg/3 ml Soln] Omeprazole 20 mg PO DAILY 06/21/23 06/21/23 History lisinopriL [Zestril] 5 mg PO DAILY 06/21/23 06/21/23 History predniSONE [Deltasone] 40 mg PO DAILY 06/21/23 06/21/23 History Allergies Allergy/AdvReac Type Severity Reaction Status Date / Time ibuprofen Allergy Rash/Hives Verified 06/21/23 11:38 NSAIDS (Non-Steroidal Allergy Rash/Hives Verified 06/21/23 11:38 Anti-Inflamma tetracycline Allergy Rash/Hives Verified 06/21/23 11:38 Physical Exam Vitals: Vital Signs Temp Pulse Resp BP Pulse Ox FiO2 06/21/23 12:39 99 F 109 H 104/93 95 06/21/23 11:30 100 06/21/23 11:24 101 H 60 06/21/23 11:02 100.1 F H 108 H 26 H 110/64 94 L 06/21/23 10:19 125 H 132/83 93 L 06/21/23 09:05 60 06/21/23 08:59 24 06/21/23 08:46 101 F H 129 H 22 128/110 90 L Intake and Output 06/20/23 06/21/23 06/21/23 22:59 06:59 14:59 Other: Weight 127.006 kg GENERAL EXAM: Alert, pleasant, obese 57-year-old female, on BiPAP 12/5 and 60% FiO2, comfortable in no apparent distress. HEAD: Normocephalic. EYES: Normal reaction of pupils, equal size. NOSE: Clear with pink turbinates. THROAT: No erythema or exudates. NECK: No masses, no JVD. CHEST: No chest wall deformity. LUNGS: Equal air entry with no crackles, wheeze, rhonchi or dullness. CVS: S1 and S2 normal with no audible murmur, regular rhythm. ABDOMEN: No hepatosplenomegaly, normal bowel sounds, no guarding or rigidity. SPINE: No scoliosis or deformity SKIN: No rashes CENTRAL NERVOUS SYSTEM: No focal deficits, tone is normal in all 4 extremities. EXTREMITIES: There is no peripheral edema. No clubbing, no cyanosis. Peripheral pulses are intact. Results - Laboratory Findings CBC and BMP: 06/21/23 09:01 06/21/23 09:01 PT/INR, D-dimer PT 10.8 sec (10.0-12.5) 06/21/23 09:01 INR 1.0 (<1.2) 06/21/23 09:01 Abnormal lab findings: Abnormal Labs 06/21/23 06/21/23 06/21/23 09:01 09:01 09:01 WBC 11.9 H MCHC 30.9 L Neutrophils # 10.3 H Chloride 110 H Creatinine 0.43 L Glucose 106 H Calcium 8.3 L Albumin 3.4 L RSV (PCR) Detected A - Diagnostic Findings Chest x-ray: image reviewed Assessment and Plan Assessment: Acute exacerbation of chronic obstructive pulmonary disease complicated by RSV Acute on chronic hypoxemic respiratory failure secondary to above Chronic and ongoing tobacco dependence of 44 years Chronic atrial fibrillation now with rapid ventricular response Morbid obesity with a BMI of 49.6 kg/m Diabetes mellitus History of anxiety/depression Hypertension Plan: The patient was seen and evaluated Chest x-ray, labs and medications reviewed Continue DuoNeb ventilations, Solu-Medrol Add Pulmicort and Perforomist inhalations Continue antibiotics for now Check a procalcitonin Titrate down the FiO2 as tolerated Educated regarding the importance of complete smoking cessation NicoDerm patch will be offered Educated regarding the importance of weight reduction Continued on a Cardizem drip Anticoagulated with Eliquis We will continue to follow and make further recommendations based on her clinical status I have personally seen and examined the patient, performed the documentation and the assessment and plan as written. Number of minutes spent on the visit: 20.
[2023-06-21 17:13] LABS: Glucose,Whole Blood 174 mg/dL (70-110)
[2023-06-21] MEDS: INSULIN ASPART (NovoLOG) 100 UNIT/ML VIAL SQ SCH ×2 (18:34→21:22)
[2023-06-21] MEDS ORDERED: ATORVASTATIN 40 MG TAB PO SCH (21:00)
[2023-06-21] MEDS ORDERED: METOPROLOL TARTRATE 50 MG TAB PO SCH ×2 (21:00)
[2023-06-21 21:05] LABS: Glucose,Whole Blood 174 mg/dL (70-110)
[2023-06-21] MEDS: METOPROLOL TARTRATE 25 MG TAB PO SCH (21:05)
[2023-06-21] MEDS: ATORVASTATIN 40 MG TAB PO SCH (21:05)
[2023-06-21] MEDS: APIXABAN 5 MG TAB PO SCH (21:05)
[2023-06-21] MEDS: INSULIN DETEMIR (LEVEMIR) 100 UNIT/ML SYR SQ SCH (21:06)
[2023-06-21] MEDS: MIRTAZAPINE 15 MG TAB PO SCH (21:22)
[2023-06-22] MEDS: methylPREDNISolone SOD SUCCI 125 MG/2 ML VIAL IV SCH ×5 (01:21→23:37)
[2023-06-22] MEDS ORDERED: NITROGLYCERIN SL TABS 0.4 MG TAB SUBLINGUAL PRN (03:59)
[2023-06-22] MEDS: DILTIAZEM 125 MG in SODIUM CHLORIDE 0.9% 100 ML IV SCH (04:26)
[2023-06-22 04:43] LABS: Basophils % (A) 0 %; Eosinophils % (A) 0 %; HCT 40.6 % (34.0-46.0); HGB 12.5 gm/dL (11.4-16.0); Hypochromasia Marked; Lymphocytes # (A) 0.7 k/uL (1.0-4.8); Lymphocytes % (A) 6 %; MCH 27.9 pg (25.0-35.0); MCHC 30.8 g/dL (31.0-37.0); MCV 90.5 fL (80.0-100.0); Mean Platelet Volume 8.3; Monocytes # (A) 0.3 k/uL (0-1.0); Monocytes % (A) 3 %; Neutrophils # (A) 10.6 k/uL (1.3-7.7); Neutrophils % (A) 91 %; Platelet Count 288 k/uL (150-450); RBC 4.48 m/uL (3.80-5.40); RDW 14.3 % (11.5-15.5); WBC 11.7 k/uL (3.8-10.6)
[2023-06-22 05:07] LABS: African American GFR (CKD) >90 (>60 ml/min/1.73 sqM); Anion Gap 6 mmol/L; Blood Urea Nitrogen 34 mg/dL (7-17); Calcium 9.1 mg/dL (8.4-10.2); Carbon Dioxide 30 mmol/L (22-30); Chloride 104 mmol/L (98-107); Glucose 158 mg/dL (74-99); Non-African American GFR(CKD) >90 (>60 ml/min/1.73 sqM); Potassium 4.5 mmol/L (3.5-5.1); Sodium 140 mmol/L (137-145)
[2023-06-22 06:31] LABS: Glucose,Whole Blood 161 mg/dL (70-110)
[2023-06-22] MEDS: INSULIN ASPART (NovoLOG) 100 UNIT/ML VIAL SQ SCH ×4 (06:46→22:14)
[2023-06-22] MEDS: PANTOPRAZOLE 40 MG TABLET PO SCH (06:47)
[2023-06-22] MEDS: IPRATROPIUM-ALBUTEROL 3 ML NEB INHALATION SCH ×4 (08:36→22:05)
[2023-06-22] MEDS ORDERED: lisinopriL 5 MG TAB PO SCH (09:00)
[2023-06-22] MEDS ORDERED: lisinopriL 10 MG TAB PO SCH (09:00)
[2023-06-22] MEDS: lisinopriL 5 MG TAB PO SCH (09:09)
[2023-06-22] MEDS: APIXABAN 5 MG TAB PO SCH ×2 (09:09→22:13)
[2023-06-22] MEDS: GABAPENTIN 300 MG CAP PO SCH ×2 (09:09→22:13)
[2023-06-22] MEDS: FOLIC ACID 1 MG TAB PO SCH (09:09)
[2023-06-22] MEDS: LORATADINE 10 MG TAB PO SCH (09:09)
[2023-06-22] MEDS: AZITHROMYCIN 500 MG TAB PO SCH (09:09)
[2023-06-22] MEDS: FLUoxetine HCL 20 MG CAP PO SCH (09:09)
[2023-06-22] MEDS: MONTELUKAST 10 MG TAB PO SCH (09:09)
[2023-06-22] MEDS: HYDROcodone/APAP 5-325MG 1 EACH TAB PO SCH ×3 (09:10→22:14)
[2023-06-22] MEDS: METOPROLOL TARTRATE 25 MG TAB PO SCH ×2 (09:14→22:13)
--- NOTE | 2023-06-22 10:05 | CA ---
Transthoracic Echo Report Name: Viola Fernandez Age: 57 Gender: F : 1965 Exam Date: 06/21/2023 15:45 Exam Location: [place] [facility] Ht (in): 63 Wt (lb): 280 Ordering Physician: Marisol Menendez Attending/Referring Phys: [id number], Shon Sweater Designer Damion Nino RDCS Procedure CPT: Indications: LV Function, afib Cardiac Hx: Technical Quality: Technically difficult study Contrast 1: Definity Total Dose (mL): 2 Contrast 2: Total Dose (mL): MEASUREMENTS (Male / Female) Normal Values 2D ECHO LV Diastolic Diameter PLAX 3.1 cm 4.2 - 5.9 / 3.9 - 5.3 cm LV Systolic Diameter PLAX 2.5 cm IVS Diastolic Thickness 1.3 cm 0.6 - 1.0 / 0.6 - 0.9 cm LVPW Diastolic Thickness 1.3 cm 0.6 - 1.0 / 0.6 - 0.9 cm LV Relative Wall Thickness 0.9 RV Internal Dim ED PLAX 2.7 cm LVOT Diameter 2.6 cm Aortic Root Diameter 2.9 cm LA Systolic Diameter LX 3.3 cm 3.0 - 4.0 / 2.7 - 3.8 cm LV Diastolic Volume MOD 4C 49.9 cm??? LV Systolic Volume MOD 4C 24.2 cm??? LV Ejection Fraction MOD 4C 51.5 % LV Cardiac Index MOD 4C 1162.6 cm???/min???m??? LV Diastolic Length 4C 7.2 cm LV Systolic Length 4C 6.3 cm Ascending Aorta Diameter 3.3 cm DOPPLER AV Peak Velocity 103.4 cm/s AV Peak Gradient 4.3 mmHg MV Peak Velocity 131.3 cm/s MV Peak Gradient 6.9 mmHg MV Mean Velocity 61.9 cm/s MV Mean Gradient 2.1 mmHg MV Velocity Time Integral 36.0 cm PV Peak Velocity 88.2 cm/s PV Peak Gradient 3.1 mmHg FINDINGS Left Ventricle Normal LV size and wall thickness. Left ventricular ejection fraction is estimated at 50-55 %. Right Ventricle Normal right ventricular size. Right Atrium Normal right atrial size. Left Atrium Normal left atrial size. Mitral Valve Structurally normal mitral valve. Trace MR. Aortic Valve Aortic valve not well visualized. Grossly normal. No aortic stenosis. No aortic regurgitation. Tricuspid Valve Tricuspid valve not well visualized. No tricuspid regurgitation. Pulmonic Valve Pulmonic valve not well visualized. No pulmonic regurgitation. Pericardium Normal pericardium. Aorta Normal size aortic root and proximal ascending aorta. CONCLUSIONS Technically very difficult and limited study. Normal LV systolic function Is very difficult to comment on the intracardiac valves Previewed by: Dr. Kenneth Cavazos MD (Electronically Signed) Final Date: 22 June 2023 10:05
--- NOTE | 2023-06-22 10:11 | P.PN ---
Subjective Progress Note Date: 06/22/23 Hospital course Patient is a 57-year-old female with a past medical history of COPD on 3 L nasal cannula, GERD, diabetes mellitus, atrial fibrillation, coronary artery disease status post stent in 2021, hypertension, hyperlipidemia who presents to the ED with shortness of breath for 5 days. Patient states that she had called her PCP 2 days ago because she knew that she was developing a bronchitis. Her PCP had prescribed her Augmentin and prednisone which she took for the past 2 days. Patient states that she was also was doing nebulizer treatment at home. She said that for the past 3-day her oxygen was in the 80s despite having increased her oxygen to 4 L. She states that her symptoms were not improving. This is what prompted her to come into the ED. In the ED patient was found to have RSV positive. Her WBC was 11.9. Patient was placed on BiPAP in the ED for di fficulty in breathing. She was also found to have a fever 100.1. She was also found to be in A-fib with RVR. Chest x-ray showed low lung volumes with generalized hazy appearance which could represent atelectasis versus pulmonary edema. Patient was started on Cardizem drip. Patient states that she quit smoking 3 days ago. Patient then referred to admission and for further evaluation by cardiology and pulmonology. Today patient states that she is feeling slightly better compared to yesterday. She is currently on the BiPAP. She states that she has been briefly off the BiPAP since yesterday. Physical exam General examination - Alert and Oriented 3 in NAD Heart - + S1S2 no murmurs Lungs -bilateral wheezing Abdomen soft NT ND +ve BS, morbidly obese Extremities -trace bilateral pitting edema GRIDDLE COOK - Moving all 4 extremities spontaneously Psych - Calm and cooperative Assessment and plan RSV bronchitis Sepsis on admission with tachycardia and fever COPD exacerbation Acute on chronic hypoxic respiratory failure Patient on 2 to 3 L nasal cannula at home Continue with Solu-Medrol 60 mg every 6 hours, DuoNebs as needed and standing, azithromycin Wean off BiPAP as tolerated Pulmonology following A-fib with RVR Wean off Cardizem drip as tolerated Cardiology increased patient's metoprolol to 75 mg p.o. twice daily Echocardiogram was a limited study however did show normal LV function Resume Eliquis Diabetes mellitus Hold home medications Will start the patient on Levemir 10 units at bedtime Sliding scale insulin Blood glucose well-controlled Hemoglobin A1c 6.1 Diabetic neuropathy Continue gabapentin Hypertension Resume home meds Hyperlipidemia Resume atorvastatin Anxiety depression Continue home meds Morbidly obese Encourage weight loss DVT prophylaxis: Eliquis Objective - Vital Signs Vital signs: Vital Signs Temp 97.6 F 06/22/23 04:00 Pulse 97 06/22/23 08:46 Resp 20 06/22/23 08:00 BP 125/77 06/22/23 08:00 Pulse Ox 97 06/22/23 08:36 FiO2 35 06/22/23 08:36 Intake & Output 06/21/23 06/22/23 06/22/23 18:59 06:59 18:59 Intake Total 341.083 180 Balance 341.083 180 Weight 127.006 kg 125.6 kg Intake: Intake, IV Titration 91.083 Amount Diltiazem 125 mg In 91.083 Sodium Chloride 0.9% 100 ml @ Per Protocol IV .Q0M [facility] Rx#:[id number] Oral 250 180 Other: Voiding Method Bedside Commode Bedside Commode # Voids 1 - Labs CBC & Chem 7: 06/22/23 04:21 06/22/23 04:21 Labs: Abnormal Lab Results - Last 24 Hours (Table) 06/21/23 06/21/23 06/22/23 Range/Units 17:11 21:04 04:21 WBC (3.8-10.6) k/uL MCHC (31.0-37.0) g/dL Neutrophils # (1.3-7.7) k/uL Lymphocytes # (1.0-4.8) k/uL BUN (7-17) mg/dL Glucose (74-99) mg/dL POC Glucose (mg/dL) 174 H 174 H (70-110) mg/dL Hemoglobin A1c 6.1 H (<=6.0) % 06/22/23 06/22/23 06/22/23 Range/Units 04:21 04:21 06:21 WBC 11.7 H (3.8-10.6) k/uL MCHC 30.8 L (31.0-37.0) g/dL Neutrophils # 10.6 H (1.3-7.7) k/uL Lymphocytes # 0.7 L (1.0-4.8) k/uL BUN 34 H (7-17) mg/dL Glucose 158 H (74-99) mg/dL POC Glucose (mg/dL) 161 H (70-110) mg/dL Hemoglobin A1c (<=6.0) %
[2023-06-22 11:20] LABS: Glucose,Whole Blood 131 mg/dL (70-110)
[2023-06-22] MEDS: guaiFENesin 600 MG TABLET.ER PO SCH ×2 (12:02→22:14)
--- NOTE | 2023-06-22 13:06 | P.PN ---
Subjective HISTORY OF PRESENT ILLNESS: This is a 57-year-old female with a past medical history significant for coronary artery disease, paroxysmal atrial fibrillation, hypertension, hyperlipidemia, COPD, and nicotine dependence. Patient follows in the office with Dr. Owens. We have been asked to see the patient in consultation for A-fib RVR. Patient examined at the bedside in the emergency room. Patient states she has been feeling short of breath for the past 3 to 4 days. She decided to come to the emergency room for further evaluation. The patient was found to be positive for RSV. She is also being treated for a COPD exacerbation. She denies any chest pain or pressure. She is currently on a BiPAP and reports improvement in her shortness of breath. Patient was also found to be A-fib with RVR. She does have a known history of atrial fibrillation. She was started on IV Cardizem for rate control. She does report mild palpitations at the time of examination. Patient does report she is a current smoker. She states that she has not had a cigarette in about 4 days and is attempting to quit. The patient does report a history of coronary artery disease. She states that she had a heart attack in 2021. She reports undergoing a cardiac catheterization at that time at [facility]. She believes she had a stent placed at that time. The details of this are unknown at this time. DIAGNOSTICS: EKG reveals A-fib with RVR Chest xray low lung volumes with generalized hazy appearance could represent atelectasis versus pulmonary edema Laboratory data: WBC 11.9. Hemoglobin 13.4. Platelet count 280. Sodium 143. Potassium 3.7. BUN 15. Creatinine 0.43. Lactic acid 1.2. Troponin negative x 1. proBNP 2910. Current home cardiac medications include Eliquis 5 mg twice a day, Lipitor 40 mg at night, lisinopril 5 mg daily, metoprolol tartrate 50 mg twice a day Most recent echocardiogram obtained in August 2021 revealing ejection fraction 55%, mild to moderate mitral regurgitation, mild tricuspid regurgitation Cardiac catheterization history: 2021 per patient, however records are unavailable at this time. June 22, 2023 Patient examined this morning at the bedside. Patient currently denies chest pain or pressure. She continues to report shortness of breath. She is wearing BiPAP at the time of examination. Telemetry reveals atrial fibrillation with a controlled ventricular rate in the 90s. Echocardiogram completed revealing ejection fraction 50 to 55% PHYSICAL EXAM: VITAL SIGNS: Reviewed. GENERAL: Well-developed in no acute distress. HEENT: Head is normocephalic. Pupils are equal, round. Sclerae anicteric. Mucous membranes of the mouth are moist. Neck supple. No JVD or thyromegaly LUNGS: Respirations even and unlabored, currently on BiPAP. Lungs with expiratory wheezing noted throughout HEART: Tachycardic. Irregular rate and rhythm. S1 and S2 heard. Distant heart sounds. ABDOMEN: Soft. Nondistended. Nontender. EXTREMITIES: Normal range of motion. No clubbing or cyanosis. Peripheral pulses intact. Trace bilateral extremity edema NEUROLOGIC: Awake and alert. Oriented x 3. ASSESSMENT: Shortness of breath Acute COPD exacerbation Acute RSV infection Paroxysmal atrial fibrillation with RVR Acute on chronic hypoxic respiratory failure, currently on BiPAP, patient on oxygen outpatient Coronary artery disease with previous PCI, details unknown Hypertension Hyperlipidemia Nicotine dependence, patient states she quit smoking 4 days ago Morbid obesity: BMI 49.6 PLAN: Discontinue IV Cardizem Continue additional cardiac medications Continue telemetry monitoring Further recommendations pending patient course Nurse practitioner note has been reviewed by physician. Signing provider agrees with the documented findings, assessment, and plan of care documented by REIMBURSEMENT MANAGER as a scribe. Objective - Vital Signs Vital signs: Vital Signs Temp 97.9 F 06/22/23 12:00 Pulse 94 06/22/23 12:41 Resp 20 06/22/23 12:00 BP 105/75 06/22/23 12:00 Pulse Ox 93 L 06/22/23 12:00 FiO2 35 06/22/23 08:36 Intake & Output 06/21/23 06/22/23 06/22/23 18:59 06:59 18:59 Intake Total 341.083 180 Balance 341.083 180 Weight 127.006 kg 125.6 kg Intake: Intake, IV Titration 91.083 Amount Diltiazem 125 mg In 91.083 Sodium Chloride 0.9% 100 ml @ Per Protocol IV .Q0M [facility] Rx#:[id number] Oral 250 180 Other: Voiding Method Bedside Commode Bedside Commode # Voids 1 1 - Labs CBC & Chem 7: 06/22/23 04:21 06/22/23 04:21 Labs: Abnormal Lab Results - Last 24 Hours (Table) 06/21/23 06/21/23 06/22/23 Range/Units 17:11 21:04 04:21 WBC (3.8-10.6) k/uL MCHC (31.0-37.0) g/dL Neutrophils # (1.3-7.7) k/uL Lymphocytes # (1.0-4.8) k/uL BUN (7-17) mg/dL Glucose (74-99) mg/dL POC Glucose (mg/dL) 174 H 174 H (70-110) mg/dL Hemoglobin A1c 6.1 H (<=6.0) % 06/22/23 06/22/23 06/22/23 Range/Units 04:21 04:21 06:21 WBC 11.7 H (3.8-10.6) k/uL MCHC 30.8 L (31.0-37.0) g/dL Neutrophils # 10.6 H (1.3-7.7) k/uL Lymphocytes # 0.7 L (1.0-4.8) k/uL BUN 34 H (7-17) mg/dL Glucose 158 H (74-99) mg/dL POC Glucose (mg/dL) 161 H (70-110) mg/dL Hemoglobin A1c (<=6.0) % 06/22/23 Range/Units 11:18 WBC (3.8-10.6) k/uL MCHC (31.0-37.0) g/dL Neutrophils # (1.3-7.7) k/uL Lymphocytes # (1.0-4.8) k/uL BUN (7-17) mg/dL Glucose (74-99) mg/dL POC Glucose (mg/dL) 131 H (70-110) mg/dL Hemoglobin A1c (<=6.0) %
--- NOTE | 2023-06-22 16:01 | P.PN ---
Subjective Progress Note Date: 06/22/23 Principal diagnosis: Acute exacerbation of COPD with RSV tracheobronchitis, chronic atrial fibrillation with RVR This is a pleasant 57-year-old female patient with a known history of chronic obstructive pulmonary disease, oxygen dependent, chronic and ongoing tobacco dependence of 44 years, atrial fibrillation anticoagulated with Eliquis, previous myocardial infarction, anxiety/depression. She presented here to the emergency room early this morning with complaints of a 4-day history of increasing shortness of breath cough congestion fever. She was found to be in atrial fibrillation with a rapid ventricular response. She was initiated on a Cardizem drip at 5 mg/h. She was hypoxemic requiring BiPAP support 12/5 and 60% FiO2. Chest x-ray reveals low lung volumes with generalized hazy appearance which could represent atelectasis versus pulmonary edema. White count 11.9. Hemoglobin 13.4. Platelets 280. Sodium 143. Potassium 3.7. Bicarb 29. BUN 15. Creatinine 0.43. Glucose 106. proBNP 2910. Troponin negative x 1. She is found to be positive for RSV. She is seen today in consultation in the emergency department. She is currently sitting up in the stretcher. Remains on BiPAP. Remains quite dyspneic with conversation. She is alert and oriented. She has been initiated on DuoNeb inhalations, Singulair, Solu-Medrol, antibiotics in the form of azithromycin. Resumed on her Eliquis. Patient was reevaluated today on 06/22/2023, remains on BiPAP, she is on 12/35%, continues to have intermittent cough and wheezing, minimal improvement, definitely not getting any worse. WBC count is 11.7 hemoglobin 12.5 basic metabolic profile is normal Objective - Vital Signs Vital signs: Vital Signs Temp 97.9 F 06/22/23 12:00 Pulse 97 06/22/23 14:00 Resp 20 06/22/23 14:00 BP 105/75 06/22/23 12:00 Pulse Ox 93 L 06/22/23 12:00 FiO2 35 06/22/23 08:36 Intake & Output 06/21/23 06/22/23 06/22/23 18:59 06:59 18:59 Intake Total 341.083 360 Balance 341.083 360 Weight 127.006 kg 125.6 kg Intake: Intake, IV Titration 91.083 Amount Diltiazem 125 mg In 91.083 Sodium Chloride 0.9% 100 ml @ Per Protocol IV .Q0M [facility] Rx#:[id number] Oral 250 360 Other: Voiding Method Bedside Commode Bedside Commode # Voids 1 1 - Exam General: The patient is awake and alert, obese, in no distress, on BiPAP Skin: Skin is warm and dry and no rashes or lesions are noted. Eye: Pupils are equal, round and reactive to light, extra-ocular movements are intact; there is normal conjunctiva bilaterally. Ears, nose, mouth and throat: There are moist mucous membranes and no oral lesions. Neck: The neck is supple, there is no tenderness or JVD. Cardiovascular: Irregularly irregular rhythm.. No murmur, rub or gallop is appreciated. Respiratory: Rhonchi and wheezes noted bilaterally. Gastrointestinal: Soft, non-distended, non-tender abdomen without masses or organomegaly noted. There is no rebound or guarding present. Bowel sounds are unremarkable. Back: There is no tenderness to palpation in the midline. There is no obvious deformity. Neurological: CN II-XII intact, Cranial nerves III through XII are intact. There are no obvious motor or sensory deficits. Coordination appears grossly intact. Speech is normal. Psychiatric: Cooperative, appropriate mood & affect, normal judgment. - Labs CBC & Chem 7: 06/22/23 04:21 06/22/23 04:21 Labs: Abnormal Lab Results - Last 24 Hours (Table) 06/21/23 06/21/23 06/22/23 Range/Units 17:11 21:04 04:21 WBC (3.8-10.6) k/uL MCHC (31.0-37.0) g/dL Neutrophils # (1.3-7.7) k/uL Lymphocytes # (1.0-4.8) k/uL BUN (7-17) mg/dL Glucose (74-99) mg/dL POC Glucose (mg/dL) 174 H 174 H (70-110) mg/dL Hemoglobin A1c 6.1 H (<=6.0) % 06/22/23 06/22/23 06/22/23 Range/Units 04:21 04:21 06:21 WBC 11.7 H (3.8-10.6) k/uL MCHC 30.8 L (31.0-37.0) g/dL Neutrophils # 10.6 H (1.3-7.7) k/uL Lymphocytes # 0.7 L (1.0-4.8) k/uL BUN 34 H (7-17) mg/dL Glucose 158 H (74-99) mg/dL POC Glucose (mg/dL) 161 H (70-110) mg/dL Hemoglobin A1c (<=6.0) % 06/22/23 Range/Units 11:18 WBC (3.8-10.6) k/uL MCHC (31.0-37.0) g/dL Neutrophils # (1.3-7.7) k/uL Lymphocytes # (1.0-4.8) k/uL BUN (7-17) mg/dL Glucose (74-99) mg/dL POC Glucose (mg/dL) 131 H (70-110) mg/dL Hemoglobin A1c (<=6.0) % Assessment and Plan Assessment: Impression: Acute exacerbation of COPD Acute RSV tracheobronchitis Paroxysmal atrial fibrillation with RVR Acute on chronic hypoxic respiratory failure requiring intermittently BiPAP History of underlying coronary artery disease and previous PCI Benign essential hypertension Dyslipidemia Morbid obesity with BMI of 49. Ex-smoker Recommendation: Continue bronchodilators Cardiology is addressing her atrial fibrillation and will likely discontinue IV Cardizem rate seems to be better controlled this morning. Continue BiPAP intermittently Continue antibiotics for now, her procalcitonin level is 0.03, however the patient is quite symptomatic and continues to have yellow phlegm. Will likely discontinue antibiotics in the next 24 hours. Depending on her symptoms Continue updrafts Continue eliquis Cardizem to be addressed by cardiology Counseled regarding smoking cessation Titrate FiO2 accordingly Continue Pulmicort and Perforomist and DuoNeb. Will continue to Time with Patient: Less than 30
[2023-06-22 16:23] LABS: Glucose,Whole Blood 174 mg/dL (70-110)
[2023-06-22] MEDS ORDERED: DILTIAZEM 5 MG/ML 5 ML VIAL IVP STA (17:47)
[2023-06-22] MEDS ORDERED: DILTIAZEM 125 MG in SODIUM CHLORIDE 0.9% 100 ML IV SCH (18:00)
[2023-06-22 20:40] LABS: Glucose,Whole Blood 158 mg/dL (70-110)
[2023-06-22] MEDS: ATORVASTATIN 40 MG TAB PO SCH (22:13)
[2023-06-22] MEDS: MIRTAZAPINE 15 MG TAB PO SCH (22:13)
[2023-06-22] MEDS: INSULIN DETEMIR (LEVEMIR) 100 UNIT/ML SYR SQ SCH (22:15)
[2023-06-23] MEDS: INSULIN ASPART (NovoLOG) 100 UNIT/ML VIAL SQ SCH ×4 (06:06→22:03)
[2023-06-23 06:08] LABS: Glucose,Whole Blood 135 mg/dL (70-110)
[2023-06-23] MEDS: methylPREDNISolone SOD SUCCI 125 MG/2 ML VIAL IV SCH ×4 (06:11→23:26)
[2023-06-23] MEDS: PANTOPRAZOLE 40 MG TABLET PO SCH (06:12)
[2023-06-23 07:00] LABS: Basophils % (A) 0 %; Eosinophils % (A) 0 %; HCT 43.3 % (34.0-46.0); HGB 13.1 gm/dL (11.4-16.0); Hypochromasia Marked; Lymphocytes # (A) 0.5 k/uL (1.0-4.8); Lymphocytes % (A) 4 %; MCH 27.8 pg (25.0-35.0); MCHC 30.2 g/dL (31.0-37.0); Mean Platelet Volume 8.3; Monocytes # (A) 0.3 k/uL (0-1.0); Monocytes % (A) 3 %; Neutrophils # (A) 12.3 k/uL (1.3-7.7); Neutrophils % (A) 93 %; Platelet Count 320 k/uL (150-450); RBC 4.71 m/uL (3.80-5.40); RDW 14.1 % (11.5-15.5); WBC 13.3 k/uL (3.8-10.6)
[2023-06-23 07:15] LABS: African American GFR (CKD) >90 (>60 ml/min/1.73 sqM); Anion Gap 6 mmol/L; Blood Urea Nitrogen 36 mg/dL (7-17); Calcium 9.6 mg/dL (8.4-10.2); Carbon Dioxide 34 mmol/L (22-30); Chloride 101 mmol/L (98-107); Glucose 137 mg/dL (74-99); Magnesium 2.2 mg/dL (1.6-2.3); Non-African American GFR(CKD) >90 (>60 ml/min/1.73 sqM); Sodium 141 mmol/L (137-145)
[2023-06-23] MEDS: METOPROLOL TARTRATE 25 MG TAB PO SCH ×2 (08:37→22:04)
[2023-06-23] MEDS: HYDROcodone/APAP 5-325MG 1 EACH TAB PO SCH ×3 (08:37→22:05)
[2023-06-23] MEDS: MONTELUKAST 10 MG TAB PO SCH (08:37)
[2023-06-23] MEDS: AZITHROMYCIN 500 MG TAB PO SCH (08:37)
[2023-06-23] MEDS: FOLIC ACID 1 MG TAB PO SCH (08:37)
[2023-06-23] MEDS: LORATADINE 10 MG TAB PO SCH (08:37)
[2023-06-23] MEDS: lisinopriL 5 MG TAB PO SCH (08:37)
[2023-06-23] MEDS: FLUoxetine HCL 20 MG CAP PO SCH (08:38)
[2023-06-23] MEDS: GABAPENTIN 300 MG CAP PO SCH ×2 (08:38→22:05)
[2023-06-23] MEDS: APIXABAN 5 MG TAB PO SCH ×2 (08:38→22:06)
[2023-06-23] MEDS: guaiFENesin 600 MG TABLET.ER PO SCH ×2 (08:38→22:05)
[2023-06-23] MEDS: IPRATROPIUM-ALBUTEROL 3 ML NEB INHALATION SCH ×4 (08:39→21:50)
[2023-06-23] MEDS: DILTIAZEM ORAL 30 MG TAB PO SCH ×2 (08:48→18:01)
[2023-06-23] MEDS ORDERED: ERGOCALCIFEROL 1,250 MCG (50,000 IU) CAPSULE PO SCH (09:00)
[2023-06-23] MEDS ORDERED: NON FORMULARY DRUG (Dulaglutide [Trulicity] 1.5 MG/0.5 ML Each) SQ SCH (09:00)
[2023-06-23 11:27] LABS: Glucose,Whole Blood 180 mg/dL (70-110)
--- NOTE | 2023-06-23 11:30 | P.PN ---
Subjective HISTORY OF PRESENT ILLNESS: This is a 57-year-old female with a past medical history significant for coronary artery disease, paroxysmal atrial fibrillation, hypertension, hyperlipidemia, COPD, and nicotine dependence. Patient follows in the office with Dr. Owens. We have been asked to see the patient in consultation for A-fib RVR. Patient examined at the bedside in the emergency room. Patient states she has been feeling short of breath for the past 3 to 4 days. She decided to come to the emergency room for further evaluation. The patient was found to be positive for RSV. She is also being treated for a COPD exacerbation. She denies any chest pain or pressure. She is currently on a BiPAP and reports improvement in her shortness of breath. Patient was also found to be A-fib with RVR. She does have a known history of atrial fibrillation. She was started on IV Cardizem for rate control. She does report mild palpitations at the time of examination. Patient does report she is a current smoker. She states that she has not had a cigarette in about 4 days and is attempting to quit. The patient does report a history of coronary artery disease. She states that she had a heart attack in 2021. She reports undergoing a cardiac catheterization at that time at [facility]. She believes she had a stent placed at that time. The details of this are unknown at this time. DIAGNOSTICS: EKG reveals A-fib with RVR Chest xray low lung volumes with generalized hazy appearance could represent atelectasis versus pulmonary edema Laboratory data: WBC 11.9. Hemoglobin 13.4. Platelet count 280. Sodium 143. Potassium 3.7. BUN 15. Creatinine 0.43. Lactic acid 1.2. Troponin negative x 1. proBNP 2910. Current home cardiac medications include Eliquis 5 mg twice a day, Lipitor 40 mg at night, lisinopril 5 mg daily, metoprolol tartrate 50 mg twice a day Most recent echocardiogram obtained in August 2021 revealing ejection fraction 55%, mild to moderate mitral regurgitation, mild tricuspid regurgitation Cardiac catheterization history: 2021 per patient, however records are unavailable at this time. June 22, 2023 Patient examined this morning at the bedside. Patient currently denies chest pain or pressure. She continues to report shortness of breath. She is wearing BiPAP at the time of examination. Telemetry reveals atrial fibrillation with a controlled ventricular rate in the 90s. Echocardiogram completed revealing ejection fraction 50 to 55% June 23, 2023 Patient examined this morning at the bedside. Patient is currently on nasal cannula with oxygen saturations greater than 92%. She reports improvement in her shortness of breath. She continues to have audible wheezing although i mproved. Patient remains in atrial fibrillation with a heart rate around 100. She did go into RVR overnight and was started on IV Cardizem which is currently infusing at 5 mg an hour. PHYSICAL EXAM: VITAL SIGNS: Reviewed. GENERAL: Well-developed in no acute distress. HEENT: Head is normocephalic. Pupils are equal, round. Sclerae anicteric. Mucous membranes of the mouth are moist. Neck supple. No JVD or thyromegaly LUNGS: Respirations even and unlabored, currently on BiPAP. Lungs with expira tory wheezing noted throughout HEART: Irregular rate and rhythm. S1 and S2 heard. Distant heart sounds. ABDOMEN: Soft. Nondistended. Nontender. EXTREMITIES: Normal range of motion. No clubbing or cyanosis. Peripheral pulses intact. Trace bilateral extremity edema NEUROLOGIC: Awake and alert. Oriented x 3. ASSESSMENT: Shortness of breath Acute COPD exacerbation Acute RSV infection Paroxysmal atrial fibrillation with RVR Acute on chronic hypoxic respiratory failure, currently on BiPAP, patient on oxygen outpatient Coronary artery disease with previous PCI, details unknown Hypertension Hyperlipidemia Nicotine dependence, patient states she quit smoking 4 days ago Morbid obesity: BMI 49.6 PLAN: Discontinue IV Cardizem Begin oral Cardizem 30 mg 3 times a day. May increase to 60 mg 3 times a day if needed. Continue current dose of metoprolol Continue additional cardiac medications Continue telemetry monitoring Further recommendations pending patient course Nurse practitioner note has been reviewed by physician. Signing provider agrees with the documented findings, assessment, and plan of care documented by VIDEO GAME DEVELOPER as a scribe. Objective - Vital Signs Vital signs: Vital Signs Temp 97.9 F 06/23/23 08:30 Pulse 110 H 06/23/23 08:57 Resp 16 06/23/23 08:30 BP 115/78 06/23/23 08:30 Pulse Ox 95 06/23/23 08:39 FiO2 35 06/23/23 08:30 Intake & Output 06/22/23 06/23/23 06/23/23 18:59 06:59 18:59 Intake Total 540 540 118 Balance 540 540 118 Intake: Oral 540 540 118 Other: Voiding Method Bedside Commode Bedside Commode # Voids 1 3 - Labs CBC & Chem 7: 06/23/23 05:47 06/23/23 05:47 Labs: Abnormal Lab Results - Last 24 Hours (Table) 06/22/23 06/22/23 06/23/23 Range/Units 16:20 20:29 05:47 WBC 13.3 H (3.8-10.6) k/uL MCHC 30.2 L (31.0-37.0) g/dL Neutrophils # 12.3 H (1.3-7.7) k/uL Lymphocytes # 0.5 L (1.0-4.8) k/uL Carbon Dioxide (22-30) mmol/L BUN (7-17) mg/dL Glucose (74-99) mg/dL POC Glucose (mg/dL) 174 H 158 H (70-110) mg/dL 06/23/23 06/23/23 06/23/23 Range/Units 05:47 06:05 11:25 WBC (3.8-10.6) k/uL MCHC (31.0-37.0) g/dL Neutrophils # (1.3-7.7) k/uL Lymphocytes # (1.0-4.8) k/uL Carbon Dioxide 34 H (22-30) mmol/L BUN 36 H (7-17) mg/dL Glucose 137 H (74-99) mg/dL POC Glucose (mg/dL) 135 H 180 H (70-110) mg/dL
[2023-06-23] MEDS: FLUTICASONE 50MCG/SPRAY NASAL 16GM EA NOSTRIL SCH (13:21)
--- NOTE | 2023-06-23 14:08 | P.PN ---
Subjective Progress Note Date: 06/23/23 Principal diagnosis: Acute exacerbation of COPD with RSV tracheobronchitis, chronic atrial fibrillation with RVR This is a pleasant 57-year-old female patient with a known history of chronic obstructive pulmonary disease, oxygen dependent, chronic and ongoing tobacco dependence of 44 years, atrial fibrillation anticoagulated with Eliquis, previous myocardial infarction, anxiety/depression. She presented here to the emergency room early this morning with complaints of a 4-day history of increasing shortness of breath cough congestion fever. She was found to be in atrial fibrillation with a rapid ventricular response. She was initiated on a Cardizem drip at 5 mg/h. She was hypoxemic requiring BiPAP support 12/5 and 60% FiO2. Chest x-ray reveals low lung volumes with generalized hazy appearance which could represent atelectasis versus pulmonary edema. White count 11.9. Hemoglobin 13.4. Platelets 280. Sodium 143. Potassium 3.7. Bicarb 29. BUN 15. Creatinine 0.43. Glucose 106. proBNP 2910. Troponin negative x 1. She is found to be positive for RSV. She is seen today in consultation in the emergency department. She is currently sitting up in the stretcher. Remains on BiPAP. Remains quite dyspneic with conversation. She is alert and oriented. She has been initiated on DuoNeb inhalations, Singulair, Solu-Medrol, antibiotics in the form of azithromycin. Resumed on her Eliquis. Patient was reevaluated today on 06/22/2023, remains on BiPAP, she is on 12/35%, continues to have intermittent cough and wheezing, minimal improvement, definitely not getting any worse. WBC count is 11.7 hemoglobin 12.5 basic metabolic profile is normal Reevaluate today on 06/23/2023, patient remains about the same, on physical examination she sounded better, but the patient continues to have intermittent cough and wheezing, I believe her improvement is marginal but nonetheless she is improved and not getting any worse. Intermittently requiring BiPAP. Continues to cough wheeze and feels congested. Basic metabolic profile is normal renal profile is normal CBC is relatively normal Objective - Vital Signs Vital signs: Vital Signs Temp 97.9 F 06/23/23 08:30 Pulse 84 06/23/23 12:24 Resp 16 06/23/23 08:30 BP 115/78 06/23/23 08:30 Pulse Ox 95 06/23/23 08:39 FiO2 35 06/23/23 08:30 Intake & Output 06/22/23 06/23/23 06/23/23 18:59 06:59 18:59 Intake Total 540 540 658 Balance 540 540 658 Intake: Oral 540 540 658 Other: Voiding Method Bedside Commode Bedside Commode # Voids 1 3 - Exam General: The patient is awake and alert, obese, in no distress, on 3 L nasal cannula off BiPAP this morning Skin: Skin is warm and dry and no rashes or lesions are noted. Eye: Pupils are equal, round and reactive to light, extra-ocular movements are intact; there is normal conjunctiva bilaterally. Ears, nose, mouth and throat: There are moist mucous membranes and no oral lesions. Neck: The neck is supple, there is no tenderness or JVD. Cardiovascular: Irregularly irregular rhythm.. No murmur, rub or gallop is appreciated. Respiratory: Diminished breath sounds at the bases some wheezing on forced expiratory maneuver noted bilaterally Gastrointestinal: Soft, non-distended, non-tender abdomen without masses or organomegaly noted. There is no rebound or guarding present. Bowel sounds are unremarkable. Back: There is no tenderness to palpation in the midline. There is no obvious deformity. Neurological: CN II-XII intact, Cranial nerves III through XII are intact. There are no obvious motor or sensory deficits. Coordination appears grossly intact. Speech is normal. Psychiatric: Cooperative, appropriate mood & affect, normal judgment. - Labs CBC & Chem 7: 06/23/23 05:47 06/23/23 05:47 Labs: Abnormal Lab Results - Last 24 Hours (Table) 06/22/23 06/22/23 06/23/23 Range/Units 16:20 20:29 05:47 WBC 13.3 H (3.8-10.6) k/uL MCHC 30.2 L (31.0-37.0) g/dL Neutrophils # 12.3 H (1.3-7.7) k/uL Lymphocytes # 0.5 L (1.0-4.8) k/uL Carbon Dioxide (22-30) mmol/L BUN (7-17) mg/dL Glucose (74-99) mg/dL POC Glucose (mg/dL) 174 H 158 H (70-110) mg/dL 06/23/23 06/23/23 06/23/23 Range/Units 05:47 06:05 11:25 WBC (3.8-10.6) k/uL MCHC (31.0-37.0) g/dL Neutrophils # (1.3-7.7) k/uL Lymphocytes # (1.0-4.8) k/uL Carbon Dioxide 34 H (22-30) mmol/L BUN 36 H (7-17) mg/dL Glucose 137 H (74-99) mg/dL POC Glucose (mg/dL) 135 H 180 H (70-110) mg/dL Assessment and Plan Assessment: Impression: Acute exacerbation of COPD Acute RSV tracheobronchitis Paroxysmal atrial fibrillation with RVR Acute on chronic hypoxic respiratory failure requiring intermittently BiPAP History of underlying coronary artery disease and previous PCI Benign essential hypertension Dyslipidemia Morbid obesity with BMI of 49. Ex-smoker Recommendation: Continue bronchodilators Continue BiPAP intermittently Radiology is handling her atrial fibrillation/paroxysmal atrial fibrillation Procalcitonin level is normal, no antibiotics felt to be necessary Continue updrafts Continue elipaula Cardiroxanam to be addressed by cardiology Counseled regarding smoking cessation Titrate FiO2 accordingly Continue Pulmicort and Perforomist and Michelle. Will continue to follow, consider discharge planning in the next 24 to 48 hours Time with Patient: Less than 30
--- NOTE | 2023-06-23 15:34 | P.PN ---
Subjective Progress Note Date: 06/23/23 (delayed charting seen at 0910) Patient is a 57-year-old female with COPD and chronic hypoxic respiratory failure on 3 L nasal nasal cannula at home, GERD, diabetes, A-fib, and coronary artery disease as well as multiple other comorbid conditions who presented to the emergency department with shortness of breath. In the ER she required BiPAP therapy due to her shortness of breath. She was found to be in A-fib with RVR. A chest x-ray showed hazy appearance representing atelectasis versus pulmonary edema. She was started on a Cardizem drip. She was admitted for RSV bronchitis and COPD exacerbation. She was started on bronchodilators and steroids. She was admitted for further monitoring. Cardio and pulmonary were consulted. She underwent echocardiogram which was a limited study but showed normal systolic function. Patient seen and examined at bedside. She reports feeling very dry and almost as if she is dehydrated. She continues to be short of breath. It is difficult for her to produce mucus. She is feeling winded. Vital signs reviewed Gen: Nontoxic, no distress, appears at stated age, obese Cardiovascular: S1S2 reg, no murmur Lungs: Rhonchi bilaterally, 3 word conversational dyspnea, no accessory muscle use Abdominal: Soft, nontender to palpation, no guarding Ext: No gross muscle atrophy, no edema b/l lower extremities, no contractures Neuro: CN II-XI grossly intact, no focal neuro deficits Psych: Alert, oriented, appropriate affect Assessment/Plan: RSV bronchitis with sepsis on admission COPD exacerbation Acute on chronic hypoxic respiratory failure, uses 3 L nasal cannula at home -Pulmonary note reviewed: Continue intermittent BiPAP, continue with updrafts and steroids. -Continue with DuoNebs 4 times daily and every 2 hours as needed, Singulair 10 mg daily -Solu-Medrol 60 mg IV every 6 hours -Mucinex 1200 mg twice daily -Add Flonase 2 sprays each nostril daily, Claritin 10 mg daily, and flutter valve A-fib with RVR, now rate controlled -Cardiology note reviewed: Discontinue IV Cardizem and start oral Cardizem 30 mg 3 times daily -Cardizem 30 mg 3 times daily, metoprolol 75 mg twice daily, Eliquis 5 mg twice daily Diabetes mellitus type 2 -Patient is on Trulicity at home -Continue with sliding scale insulin -Continue with Levemir 10 units at night -A1c 6.1 -Follow blood sugars Chronic: Dyslipidemia Hypertension GERD Coronary artery disease Class III obesity with BMI 49.1 Imaging: None new Data Review: Labs reviewed from today include CBC and basic metabolic profile which are remarkable for white blood cell count 13.3. DVT prophylaxis: Eliquis Anticipated discharge date: 24 to [address]: Home This dictation was prepared using [employer] voice recognition software. Though every attempt is made to correct errors during dictation some may still exist. Objective - Vital Signs Vital signs: Vital Signs Temp 97.9 F 06/23/23 08:30 Pulse 84 06/23/23 12:24 Resp 16 06/23/23 08:30 BP 115/78 06/23/23 08:30 Pulse Ox 95 06/23/23 08:39 FiO2 35 06/23/23 08:30 Intake & Output 06/22/23 06/23/23 06/23/23 18:59 06:59 18:59 Intake Total 540 540 658 Balance 540 540 658 Intake: Oral 540 540 658 Other: Voiding Method Bedside Commode Bedside Commode # Voids 1 3 - Labs CBC & Chem 7: 06/23/23 05:47 06/23/23 05:47 Labs: Abnormal Lab Results - Last 24 Hours (Table) 06/22/23 06/22/23 06/23/23 Range/Units 16:20 20:29 05:47 WBC 13.3 H (3.8-10.6) k/uL MCHC 30.2 L (31.0-37.0) g/dL Neutrophils # 12.3 H (1.3-7.7) k/uL Lymphocytes # 0.5 L (1.0-4.8) k/uL Carbon Dioxide (22-30) mmol/L BUN (7-17) mg/dL Glucose (74-99) mg/dL POC Glucose (mg/dL) 174 H 158 H (70-110) mg/dL 06/23/23 06/23/23 06/23/23 Range/Units 05:47 06:05 11:25 WBC (3.8-10.6) k/uL MCHC (31.0-37.0) g/dL Neutrophils # (1.3-7.7) k/uL Lymphocytes # (1.0-4.8) k/uL Carbon Dioxide 34 H (22-30) mmol/L BUN 36 H (7-17) mg/dL Glucose 137 H (74-99) mg/dL POC Glucose (mg/dL) 135 H 180 H (70-110) mg/dL
[2023-06-23 16:19] LABS: Glucose,Whole Blood 142 mg/dL (70-110)
[2023-06-23] MEDS ORDERED: DILTIAZEM ORAL 30 MG TAB PO STA (18:35)
[2023-06-23] MEDS: bisacodyL 5 MG TABLET.DR PO PRN (19:13)
[2023-06-23 19:47] LABS: Glucose,Whole Blood 233 mg/dL (70-110)
[2023-06-23] MEDS: DILTIAZEM ORAL 60 MG TAB PO SCH (22:04)
[2023-06-23] MEDS: INSULIN DETEMIR (LEVEMIR) 100 UNIT/ML SYR SQ SCH (22:04)
[2023-06-23] MEDS: ATORVASTATIN 40 MG TAB PO SCH (22:04)
[2023-06-23] MEDS: MIRTAZAPINE 15 MG TAB PO SCH (22:05)
[2023-06-23] MEDS: NYSTATIN 100,000 UNIT/ML SUSP 500,000 UNIT/5 ML CUP PO SCH ×2 (22:11→22:12)
[2023-06-23] MEDS ORDERED: IPRATROPIUM 0.5 MG/2.5 ML NEBU INHALATION STA (22:54)
[2023-06-23] MEDS: MAGNESIUM SULFATE-D5W PMX 1 GM in DEXTROSE/WATER 1 100ML.BAG IVPB SCH (23:24)
[2023-06-23 23:47] LABS: ABG Base Excess 6.6 mmol/L; ABG HCO3 34 mmol/L (21-25); ABG Oxygen Saturation 89.9 % (94-97); ABG PH 7.25 (7.35-7.45); ABG PO2 66 mmHg (83-108); ABG TCO2 36 mmol/L (19-24); Allen Test Performed? Yes
[2023-06-23 23:53] LABS: ABG PCO2 78 mmHg (35-45)
[2023-06-24] MEDS: MAGNESIUM SULFATE-D5W PMX 1 GM in DEXTROSE/WATER 1 100ML.BAG IVPB SCH (00:29)
[2023-06-24 02:30] LABS: ABG Base Excess 7.5 mmol/L; ABG HCO3 35 mmol/L (21-25); ABG Oxygen Saturation 93.4 % (94-97); ABG PH 7.24 (7.35-7.45); ABG PO2 78 mmHg (83-108); ABG TCO2 37 mmol/L (19-24); Allen Test Performed? Yes
[2023-06-24 02:51] LABS: ABG PCO2 81 mmHg (35-45)
[2023-06-24] MEDS ORDERED: FUROSEMIDE 10 MG/ML 4 ML VIAL IV STA (03:17)
[2023-06-24 05:49] LABS: ABG Base Excess 11.1 mmol/L; ABG HCO3 37 mmol/L (21-25); ABG Oxygen Saturation 95.9 % (94-97); ABG PH 7.32 (7.35-7.45); ABG PO2 88 mmHg (83-108); ABG TCO2 40 mmol/L (19-24); Allen Test Performed? Yes
[2023-06-24] MEDS: PANTOPRAZOLE 40 MG TABLET PO SCH (05:51)
[2023-06-24 05:53] LABS: Glucose,Whole Blood 163 mg/dL (70-110)
[2023-06-24 05:56] LABS: ABG PCO2 73 mmHg (35-45)
[2023-06-24] MEDS: methylPREDNISolone SOD SUCCI 125 MG/2 ML VIAL IV SCH ×4 (06:03→23:49)
[2023-06-24] MEDS: INSULIN ASPART (NovoLOG) 100 UNIT/ML VIAL SQ SCH ×4 (06:04→21:33)
--- NOTE | 2023-06-24 06:10 | XR ---
EXAM: XR Chest, 1 View CLINICAL HISTORY: ITS.REASON XR Reason: hypoxia TECHNIQUE: Frontal view of the chest. COMPARISON: Single view of the chest June 21 2023 IMPRESSION: 1. Right greater than left asymmetric airspace disease. Additional mild interstitial changes noted. Findings may relate to interstitial and alveolar pulmonary edema. 2. Cardiomegaly.
[2023-06-24] MEDS: APIXABAN 5 MG TAB PO SCH ×2 (08:31→21:31)
[2023-06-24] MEDS: LORATADINE 10 MG TAB PO SCH (08:31)
[2023-06-24] MEDS: FLUoxetine HCL 20 MG CAP PO SCH (08:31)
[2023-06-24] MEDS: METOPROLOL TARTRATE 25 MG TAB PO SCH ×2 (08:31→21:32)
[2023-06-24] MEDS: HYDROcodone/APAP 5-325MG 1 EACH TAB PO SCH ×3 (08:31→21:32)
[2023-06-24] MEDS: FOLIC ACID 1 MG TAB PO SCH (08:31)
[2023-06-24] MEDS: MONTELUKAST 10 MG TAB PO SCH (08:31)
[2023-06-24] MEDS: DILTIAZEM ORAL 60 MG TAB PO SCH ×3 (08:31→21:32)
[2023-06-24] MEDS: guaiFENesin 600 MG TABLET.ER PO SCH ×2 (08:31→21:32)
[2023-06-24] MEDS: GABAPENTIN 300 MG CAP PO SCH ×2 (08:32→21:31)
[2023-06-24] MEDS: FLUTICASONE 50MCG/SPRAY NASAL 16GM EA NOSTRIL SCH (08:32)
[2023-06-24] MEDS: IPRATROPIUM-ALBUTEROL 3 ML NEB INHALATION SCH ×4 (08:34→20:54)
[2023-06-24] MEDS: NYSTATIN 100,000 UNIT/ML SUSP 500,000 UNIT/5 ML CUP PO SCH ×4 (08:40→21:36)
[2023-06-24 09:29] LABS: HGB 13.5 gm/dL (11.4-16.0); Hypochromasia Marked; MCH 27.6 pg (25.0-35.0); MCHC 30.1 g/dL (31.0-37.0); MCV 91.7 fL (80.0-100.0); Mean Platelet Volume 8.5; Platelet Count 342 k/uL (150-450); RDW 14.2 % (11.5-15.5); WBC 12.1 k/uL (3.8-10.6)
--- NOTE | 2023-06-24 09:44 | P.PN ---
Subjective HISTORY OF PRESENT ILLNESS: This is a 57-year-old female with a past medical history significant for coronary artery disease, paroxysmal atrial fibrillation, hypertension, hyperlipidemia, COPD, and nicotine dependence. Patient follows in the office with Dr. Owens. We have been asked to see the patient in consultation for A-fib RVR. Patient examined at the bedside in the emergency room. Patient states she has been feeling short of breath for the past 3 to 4 days. She decided to come to the emergency room for further evaluation. The patient was found to be positive for RSV. She is also being treated for a COPD exacerbation. She denies any chest pain or pressure. She is currently on a BiPAP and reports improvement in her shortness of breath. Patient was also found to be A-fib with RVR. She does have a known history of atrial fibrillation. She was started on IV Cardizem for rate control. She does report mild palpitations at the time of examination. Patient does report she is a current smoker. She states that she has not had a cigarette in about 4 days and is attempting to quit. The patient does report a history of coronary artery disease. She states that she had a heart attack in 2021. She reports undergoing a cardiac catheterization at that time at [facility]. She believes she had a stent placed at that time. The details of this are unknown at this time. DIAGNOSTICS: EKG reveals A-fib with RVR Chest xray low lung volumes with generalized hazy appearance could represent atelectasis versus pulmonary edema Laboratory data: WBC 11.9. Hemoglobin 13.4. Platelet count 280. Sodium 143. Potassium 3.7. BUN 15. Creatinine 0.43. Lactic acid 1.2. Troponin negative x 1. proBNP 2910. Current home cardiac medications include Eliquis 5 mg twice a day, Lipitor 40 mg at night, lisinopril 5 mg daily, metoprolol tartrate 50 mg twice a day Most recent echocardiogram obtained in August 2021 revealing ejection fraction 55%, mild to moderate mitral regurgitation, mild tricuspid regurgitation Cardiac catheterization history: 2021 per patient, however records are unavailable at this time. June 22, 2023 Patient examined this morning at the bedside. Patient currently denies chest pain or pressure. She continues to report shortness of breath. She is wearing BiPAP at the time of examination. Telemetry reveals atrial fibrillation with a controlled ventricular rate in the 90s. Echocardiogram completed revealing ejection fraction 50 to 55% June 23, 2023 Patient examined this morning at the bedside. Patient is currently on nasal cannula with oxygen saturations greater than 92%. She reports improvement in her shortness of breath. She continues to have audible wheezing although i mproved. Patient remains in atrial fibrillation with a heart rate around 100. She did go into RVR overnight and was started on IV Cardizem which is currently infusing at 5 mg an hour. 2023 Patient examined this morning. Patient is sitting on the side of the bed. Patient currently denies chest pain or pressure. She continues to report shortness of breath. She is currently nasal cannula with oxygen saturations greater than 92%. She states she did have an episode overnight of dyspnea. She required a dose of IV Lasix. Chest x-ray obtained this morning reveals right greater than left asymmetric airspace disease. Additional mild interstitial changes noted. Findings may relate to interstitial and alveolar pulmonary edema. Cardiomegaly. Telemetry reveals atrial fibrillation with controlled ventricular rate in the s. Patient's Cardizem was increased yesterday to 60 mg 2 times a day. PHYSICAL EXAM: VITAL SIGNS: Reviewed. GENERAL: Well-developed in no acute distress. HEENT: Head is normocephalic. Pupils are equal, round. Sclerae anicteric. Mucous membranes of the mouth are moist. Neck supple. No JVD or thyromegaly LUNGS: Respirations even and unlabored, currently on BiPAP. Lungs with expiratory wheezing noted throughout HEART: Irregular rate and rhythm. S1 and S2 heard. Distant heart sounds. ABDOMEN: Soft. Nondistended. Nontender. EXTREMITIES: Normal range of motion. No clubbing or cyanosis. Peripheral pulses intact. Trace bilateral extremity edema NEUROLOGIC: Awake and alert. Oriented x 3. ASSESSMENT: Shortness of breath Acute COPD exacerbation Acute RSV infection Paroxysmal atrial fibrillation with RVR Acute on chronic hypoxic respiratory failure, currently on BiPAP, patient on oxygen outpatient Mild acute heart failure with preserved EF Coronary artery disease with previous PCI, details unknown Hypertension Hyperlipidemia Nicotine dependence, patient states she quit smoking 4 days ago Morbid obesity: BMI 49.6 PLAN: Continue current dose of metoprolol Continue current dose of Cardizem. Dose was increased to 60 mg 3 times a day yesterday. Patient's hearts are fairly controlled in the [id number]. Add a small dose of oral Lasix daily 20 mg. Check BNP Continue additional cardiac medications Continue telemetry monitoring Further recommendations pending patient course Nurse practitioner note has been reviewed by physician. Signing provider agrees with the documented findings, assessment, and plan of care documented by LYE MACHINE OPERATOR as a scribe. Objective - Vital Signs Vital signs: Vital Signs Temp 96.6 F L 06/24/23 08:00 Pulse 111 H 06/24/23 08:49 Resp 20 06/24/23 08:00 BP 117/76 06/24/23 08:00 Pulse Ox 96 06/24/23 08:00 FiO2 40 06/24/23 08:34 Intake & Output 06/23/23 06/24/23 06/24/23 18:59 06:59 18:59 Intake Total 898 240 Output Total 1550 150 Balance 898 -1550 90 Intake: Oral 898 240 Output: Urine 1550 150 Other: Voiding Method Bedside Commode Bedside Commode # Voids 4 - Labs CBC & Chem 7: 06/24/23 08:05 06/24/23 08:05 Labs: Abnormal Lab Results - Last 24 Hours (Table) 06/23/23 06/23/23 06/23/23 Range/Units 11:25 16:18 19:45 WBC (3.8-10.6) k/uL MCHC (31.0-37.0) g/dL ABG pH (7.35-7.45) ABG pCO2 (35-45) mmHg ABG pO2 (83-108) mmHg ABG HCO3 (21-25) mmol/L ABG Total CO2 (19-24) mmol/L ABG O2 Saturation (94-97) % POC Glucose (mg/dL) 180 H 142 H 233 H (70-110) mg/dL 06/23/23 06/24/23 06/24/23 Range/Units 23:43 02:35 05:47 WBC (3.8-10.6) k/uL MCHC (31.0-37.0) g/dL ABG pH 7.25 L 7.24 L 7.32 L (7.35-7.45) ABG pCO2 78 H* 81 H* 73 H* (35-45) mmHg ABG pO2 66 L 78 L (83-108) mmHg ABG HCO3 34 H 35 H 37 H (21-25) mmol/L ABG Total CO2 36 H 37 H 40 H (19-24) mmol/L ABG O2 Saturation 89.9 L 93.4 L (94-97) % POC Glucose (mg/dL) (70-110) mg/dL 06/24/23 06/24/23 Range/Units 05:47 08:05 WBC 12.1 H (3.8-10.6) k/uL MCHC 30.1 L (31.0-37.0) g/dL ABG pH (7.35-7.45) ABG pCO2 (35-45) mmHg ABG pO2 (83-108) mmHg ABG HCO3 (21-25) mmol/L ABG Total CO2 (19-24) mmol/L ABG O2 Saturation (94-97) % POC Glucose (mg/dL) 163 H (70-110) mg/dL
[2023-06-24] MEDS ORDERED: ALBUTEROL NEBULIZED 2.5 MG/3 ML INHALATION PRN (09:46)
[2023-06-24] MEDS ORDERED: ALBUTEROL HFA INHALER INHALATION PRN (09:47)
[2023-06-24 09:52] LABS: African American GFR (CKD) >90 (>60 ml/min/1.73 sqM); Anion Gap 4 mmol/L; Blood Urea Nitrogen 35 mg/dL (7-17); Calcium 9.3 mg/dL (8.4-10.2); Carbon Dioxide 39 mmol/L (22-30); Chloride 96 mmol/L (98-107); Glucose 172 mg/dL (74-99); Magnesium 2.2 mg/dL (1.6-2.3); Non-African American GFR(CKD) >90 (>60 ml/min/1.73 sqM); Potassium 4.9 mmol/L (3.5-5.1); Sodium 139 mmol/L (137-145)
[2023-06-24 09:55] LABS: NT-Pro-B-Type Natriuretic Pept 2150 pg/mL
[2023-06-24] MEDS ORDERED: FUROSEMIDE 10 MG/ML 2 ML VIAL IV ONE (10:30)
--- NOTE | 2023-06-24 11:27 | P.PN ---
Subjective Progress Note Date: 06/24/23 Patient is a 57-year-old female with COPD and chronic hypoxic respiratory failure on 3 L nasal nasal cannula at home, GERD, diabetes, A-fib, and coronary artery disease as well as multiple other comorbid conditions who presented to the emergency department with shortness of breath. In the ER she required BiPAP therapy due to her shortness of breath. She was found to be in A-fib with RVR. A chest x-ray showed hazy appearance representing atelectasis versus pulmonary edema. She was started on a Cardizem drip. She was admitted for RSV bronchitis and COPD exacerbation. She was started on bronchodilators and steroids. She was admitted for further monitoring. Cardio and pulmonary were consulted. She underwent echocardiogram which was a limited study but showed normal systolic function. Patient seen and examined at bedside. She complains of shortness of breath and continued difficulty with having a productive cough. She is very upset that it took so long to get an urgent breathing treatment last night and she felt as though she was choking and no one was paying attention. Vital signs reviewed Gen: Nontoxic, no distress, appears at stated age, obese Cardiovascular: S1S2 reg, no murmur Lungs: Rhonchi bilaterally, 3 word conversational dyspnea, no accessory muscle use Abdominal: Soft, nontender to palpation, no guarding Ext: No gross muscle atrophy, no edema b/l lower extremities, no contractures Neuro: CN II-XI grossly intact, no focal neuro deficits Psych: Alert, oriented, appropriate affect Assessment/Plan: RSV bronchitis with sepsis on admission COPD exacerbation Acute on chronic hypoxic respiratory failure, uses 3 L nasal cannula at home -Await further pulmonary recommendations -Continue with DuoNebs 4 times daily and every 2 hours as needed, Singulair 10 mg daily -Solu-Medrol 60 mg IV every 6 hours - fluid retention due to high dose steroid use, lasix 20 mg daily -Mucinex 1200 mg twice daily - Flonase 2 sprays each nostril daily, Claritin 10 mg daily, and flutter valve A-fib with RVR, now rate controlled -Cardiology recommendations reviewed: Continue current dose of metoprolol and Cardizem. Add small dose of oral Lasix. -Cardizem 60 mg 3 times daily, metoprolol 75 mg twice daily, Eliquis 5 mg twice daily Diabetes mellitus type 2 -Patient is on Trulicity at home -Continue with sliding scale insulin -Continue with Levemir 10 units at night -A1c 6.1 -Follow blood sugars Chronic: Dyslipidemia Hypertension GERD Coronary artery disease Class III obesity with BMI 49.1 Imaging: Repeat chest x-ray reviewed by myself shows continued right-sided infiltrate consistent with atypical pneumonia versus fluid overload. Data Review: Labs reviewed from today include CBC, basic metabolic profile, BMP, and ABGs which are remarkable for white blood cell count 12.1, BUN 35, blood sugar 163. DVT prophylaxis: Eliquis Anticipated discharge date: 24 to [address]: Home This dictation was prepared using [employer] voice recognition software. Though every attempt is made to correct errors during dictation some may still exist. Objective - Vital Signs Vital signs: Vital Signs Temp 96.6 F L 06/24/23 08:00 Pulse 111 H 06/24/23 08:49 Resp 20 06/24/23 08:00 BP 117/76 06/24/23 08:00 Pulse Ox 96 06/24/23 08:00 FiO2 35 06/24/23 10:10 Intake & Output 06/23/23 06/24/23 06/24/23 18:59 06:59 18:59 Intake Total 898 240 Output Total 1550 150 Balance 898 -1550 90 Intake: Oral 898 240 Output: Urine 1550 150 Other: Voiding Method Bedside Commode Bedside Commode # Voids 4 - Labs CBC & Chem 7: 06/24/23 08:05 06/24/23 08:05 Labs: Abnormal Lab Results - Last 24 Hours (Table) 06/23/23 06/23/23 06/23/23 Range/Units 11:25 16:18 19:45 WBC (3.8-10.6) k/uL MCHC (31.0-37.0) g/dL ABG pH (7.35-7.45) ABG pCO2 (35-45) mmHg ABG pO2 (83-108) mmHg ABG HCO3 (21-25) mmol/L ABG Total CO2 (19-24) mmol/L ABG O2 Saturation (94-97) % Chloride (98-107) mmol/L Carbon Dioxide (22-30) mmol/L BUN (7-17) mg/dL Glucose (74-99) mg/dL POC Glucose (mg/dL) 180 H 142 H 233 H (70-110) mg/dL 06/23/23 06/24/23 06/24/23 Range/Units 23:43 02:35 05:47 WBC (3.8-10.6) k/uL MCHC (31.0-37.0) g/dL ABG pH 7.25 L 7.24 L 7.32 L (7.35-7.45) ABG pCO2 78 H* 81 H* 73 H* (35-45) mmHg ABG pO2 66 L 78 L (83-108) mmHg ABG HCO3 34 H 35 H 37 H (21-25) mmol/L ABG Total CO2 36 H 37 H 40 H (19-24) mmol/L ABG O2 Saturation 89.9 L 93.4 L (94-97) % Chloride (98-107) mmol/L Carbon Dioxide (22-30) mmol/L BUN (7-17) mg/dL Glucose (74-99) mg/dL POC Glucose (mg/dL) (70-110) mg/dL 06/24/23 06/24/23 06/24/23 Range/Units 05:47 08:05 08:05 WBC 12.1 H (3.8-10.6) k/uL MCHC 30.1 L (31.0-37.0) g/dL ABG pH (7.35-7.45) ABG pCO2 (35-45) mmHg ABG pO2 (83-108) mmHg ABG HCO3 (21-25) mmol/L ABG Total CO2 (19-24) mmol/L ABG O2 Saturation (94-97) % Chloride 96 L (98-107) mmol/L Carbon Dioxide 39 H (22-30) mmol/L BUN 35 H (7-17) mg/dL Glucose 172 H (74-99) mg/dL POC Glucose (mg/dL) 163 H (70-110) mg/dL
[2023-06-24] MEDS: lisinopriL 5 MG TAB PO SCH (11:45)
[2023-06-24 11:54] LABS: Glucose,Whole Blood 143 mg/dL (70-110)
--- NOTE | 2023-06-24 13:00 | P.PN ---
Subjective Progress Note Date: 06/24/23 Principal diagnosis: Acute exacerbation of COPD with RSV tracheobronchitis, chronic atrial fibrillation with RVR This is a pleasant 57-year-old female patient with a known history of chronic obstructive pulmonary disease, oxygen dependent, chronic and ongoing tobacco dependence of 44 years, atrial fibrillation anticoagulated with Eliquis, previous myocardial infarction, anxiety/depression. She presented here to the emergency room early this morning with complaints of a 4-day history of increasing shortness of breath cough congestion fever. She was found to be in atrial fibrillation with a rapid ventricular response. She was initiated on a Cardizem drip at 5 mg/h. She was hypoxemic requiring BiPAP support 12/5 and 60% FiO2. Chest x-ray reveals low lung volumes with generalized hazy appearance which could represent atelectasis versus pulmonary edema. White count 11.9. Hemoglobin 13.4. Platelets 280. Sodium 143. Potassium 3.7. Bicarb 29. BUN 15. Creatinine 0.43. Glucose 106. proBNP 2910. Troponin negative x 1. She is found to be positive for RSV. She is seen today in consultation in the emergency department. She is currently sitting up in the stretcher. Remains on BiPAP. Remains quite dyspneic with conversation. She is alert and oriented. She has been initiated on DuoNeb inhalations, Singulair, Solu-Medrol, antibiotics in the form of azithromycin. Resumed on her Eliquis. Patient was reevaluated today on 06/22/2023, remains on BiPAP, she is on 12//35%, continues to have intermittent cough and wheezing, minimal improvement, definitely not getting any worse. WBC count is 11.7 hemoglobin 12.5 basic metabolic profile is normal Reevaluate today on 06/23/2023, patient remains about the same, on physical examination she sounded better, but the patient continues to have intermittent cough and wheezing, I believe her improvement is marginal but nonetheless she is improved and not getting any worse. Intermittently requiring BiPAP. Continues to cough wheeze and feels congested. Basic metabolic profile is normal renal profile is normal CBC is relatively normal Patient was reevaluated today on 06/24/2022, around 3 AM in the morning, I was notified about this patient having worsening hypercapnia and I recommended BiPAP also recommended a dose of Lasix, recommended cutting down her FiO2 to 35%, and repeat ABG this morning. Initial ABG when I was notified about this patient showed a pO2 of 78 pCO2 81 pH of 7.24, follow-up ABG this morning showed a pO2 of 88 pCO2 73 pH of 7.32. Patient diuresed with Lasix, felt better, I evaluated the patient this morning, she seems to be comfortable on BiPAP, she is on IPAP 14 EPAP of 7 and 40% and I cut it down to 35%. On physical examination she continues to have crackles rhonchi and wheezes, hence I recommended Lasix to be given again. Chest x-ray today clearly showed mild interstitial edema bilaterally, and it showed cardiomegaly. Objective - Vital Signs Vital signs: Vital Signs Temp 96.6 F L 06/24/23 08:00 Pulse 111 H 06/24/23 08:49 Resp 20 06/24/23 08:00 BP 117/76 06/24/23 08:00 Pulse Ox 96 06/24/23 08:00 FiO2 35 06/24/23 10:10 Intake & Output 06/23/23 06/24/23 06/24/23 18:59 06:59 18:59 Intake Total 898 240 Output Total 1550 150 Balance 898 -1550 90 Intake: Oral 898 240 Output: Urine 1550 150 Other: Voiding Method Bedside Commode Bedside Commode Bedside Commode # Voids 4 - Exam General: The patient is awake and alert, obese, in no distress, on BiPAP. Skin: Skin is warm and dry and no rashes or lesions are noted. Eye: Pupils are equal, round and reactive to light, extra-ocular movements are intact; there is normal conjunctiva bilaterally. Ears, nose, mouth and throat: There are moist mucous membranes and no oral lesions. Neck: The neck is supple, there is no tenderness or JVD. Cardiovascular: Irregularly irregular rhythm.. No murmur, rub or gallop is appreciated. Respiratory: Crackles and wheezes noted bilaterally. Gastrointestinal: Soft, non-distended, non-tender abdomen without masses or organomegaly noted. There is no rebound or guarding present. Bowel sounds are unremarkable. Back: There is no tenderness to palpation in the midline. There is no obvious deformity. Neurological: CN II-XII intact, Cranial nerves III through XII are intact. There are no obvious motor or sensory deficits. Coordination appears grossly intact. Speech is normal. Psychiatric: Cooperative, appropriate mood & affect, normal judgment. - Labs CBC & Chem 7: 06/24/23 08:05 06/24/23 08:05 Labs: Abnormal Lab Results - Last 24 Hours (Table) 06/23/23 06/23/23 06/23/23 Range/Units 16:18 19:45 23:43 WBC (3.8-10.6) k/uL MCHC (31.0-37.0) g/dL ABG pH 7.25 L (7.35-7.45) ABG pCO2 78 H* (35-45) mmHg ABG pO2 66 L (83-108) mmHg ABG HCO3 34 H (21-25) mmol/L ABG Total CO2 36 H (19-24) mmol/L ABG O2 Saturation 89.9 L (94-97) % Chloride (98-107) mmol/L Carbon Dioxide (22-30) mmol/L BUN (7-17) mg/dL Glucose (74-99) mg/dL POC Glucose (mg/dL) 142 H 233 H (70-110) mg/dL 06/24/23 06/24/23 06/24/23 Range/Units 02:35 05:47 05:47 WBC (3.8-10.6) k/uL MCHC (31.0-37.0) g/dL ABG pH 7.24 L 7.32 L (7.35-7.45) ABG pCO2 81 H* 73 H* (35-45) mmHg ABG pO2 78 L (83-108) mmHg ABG HCO3 35 H 37 H (21-25) mmol/L ABG Total CO2 37 H 40 H (19-24) mmol/L ABG O2 Saturation 93.4 L (94-97) % Chloride (98-107) mmol/L Carbon Dioxide (22-30) mmol/L BUN (7-17) mg/dL Glucose (74-99) mg/dL POC Glucose (mg/dL) 163 H (70-110) mg/dL 06/24/23 06/24/23 06/24/23 Range/Units 08:05 08:05 11:53 WBC 12.1 H (3.8-10.6) k/uL MCHC 30.1 L (31.0-37.0) g/dL ABG pH (7.35-7.45) ABG pCO2 (35-45) mmHg ABG pO2 (83-108) mmHg ABG HCO3 (21-25) mmol/L ABG Total CO2 (19-24) mmol/L ABG O2 Saturation (94-97) % Chloride 96 L (98-107) mmol/L Carbon Dioxide 39 H (22-30) mmol/L BUN 35 H (7-17) mg/dL Glucose 172 H (74-99) mg/dL POC Glucose (mg/dL) 143 H (70-110) mg/dL Assessment and Plan Assessment: Impression: Acute exacerbation of COPD Acute RSV tracheobronchitis Paroxysmal atrial fibrillation with RVR Acute diastolic congestive heart failure is strongly suspected based on the chest x-ray findings and based on the response to Lasix Acute on chronic hypoxic respiratory failure requiring intermittently BiPAP History of underlying coronary artery disease and previous PCI Benign essential hypertension Dyslipidemia Morbid obesity with BMI of 49. Ex-smoker Recommendation: X-ray this morning was reviewed consistent with mild interstitial edema/acute diastolic congestive heart failure Continue bronchodilators Continue BiPAP intermittently Continue diuretics/Lasix Cardiology is following the atrial fibrillation issue and CHF Procalcitonin level is normal, no antibiotics felt to be necessary Continue updrafts Continue eliquis Counseled regarding smoking cessation Titrate FiO2 accordingly presently on FiO2 35%, IPAP of 14 and EPAP of 7 Continue Pulmicort and Perforomist and Michelle. Will continue to follow Time with Patient: Less than 30
[2023-06-24 16:40] LABS: Glucose,Whole Blood 187 mg/dL (70-110)
[2023-06-24] MEDS: bisacodyL 5 MG TABLET.DR PO PRN (17:06)
[2023-06-24 20:04] LABS: Glucose,Whole Blood 188 mg/dL (70-110)
[2023-06-24] MEDS: FORMOTEROL FUMARATE 20 MCG/2 ML NEBU INHALATION SCH (20:54)
[2023-06-24] MEDS: BUDESONIDE 1 MG/2 ML NEBU INHALATION SCH (20:54)
[2023-06-24] MEDS: ATORVASTATIN 40 MG TAB PO SCH (21:31)
[2023-06-24] MEDS: MIRTAZAPINE 15 MG TAB PO SCH (21:32)
[2023-06-24] MEDS: INSULIN DETEMIR (LEVEMIR) 100 UNIT/ML SYR SQ SCH (21:34)
[2023-06-25 06:19] LABS: Glucose,Whole Blood 236 mg/dL (70-110)
[2023-06-25] MEDS: PANTOPRAZOLE 40 MG TABLET PO SCH (06:42)
[2023-06-25] MEDS: INSULIN ASPART (NovoLOG) 100 UNIT/ML VIAL SQ SCH ×4 (06:42→20:51)
[2023-06-25] MEDS: methylPREDNISolone SOD SUCCI 125 MG/2 ML VIAL IV SCH ×4 (06:42→23:15)
[2023-06-25] MEDS: FORMOTEROL FUMARATE 20 MCG/2 ML NEBU INHALATION SCH ×2 (08:30→21:14)
[2023-06-25] MEDS: IPRATROPIUM-ALBUTEROL 3 ML NEB INHALATION SCH ×4 (08:30→21:14)
[2023-06-25] MEDS: BUDESONIDE 1 MG/2 ML NEBU INHALATION SCH ×2 (08:30→21:14)
[2023-06-25] MEDS ORDERED: FUROSEMIDE 40 MG TAB PO SCH (09:00)
[2023-06-25] MEDS: FOLIC ACID 1 MG TAB PO SCH (09:18)
[2023-06-25] MEDS: HYDROcodone/APAP 5-325MG 1 EACH TAB PO SCH ×3 (09:18→20:50)
[2023-06-25] MEDS: APIXABAN 5 MG TAB PO SCH ×2 (09:18→20:49)
[2023-06-25] MEDS: lisinopriL 5 MG TAB PO SCH (09:18)
[2023-06-25] MEDS: FUROSEMIDE 20 MG TAB PO SCH (09:18)
[2023-06-25] MEDS: METOPROLOL TARTRATE 25 MG TAB PO SCH ×2 (09:18→20:50)
[2023-06-25] MEDS: DILTIAZEM ORAL 60 MG TAB PO SCH ×3 (09:18→20:50)
[2023-06-25] MEDS: bisacodyL 5 MG TABLET.DR PO PRN (09:18)
[2023-06-25] MEDS: FLUoxetine HCL 20 MG CAP PO SCH (09:18)
[2023-06-25] MEDS: LORATADINE 10 MG TAB PO SCH (09:18)
[2023-06-25] MEDS: GABAPENTIN 300 MG CAP PO SCH ×2 (09:19→20:49)
[2023-06-25] MEDS: FLUTICASONE 50MCG/SPRAY NASAL 16GM EA NOSTRIL SCH (09:19)
[2023-06-25] MEDS: MONTELUKAST 10 MG TAB PO SCH (09:19)
[2023-06-25] MEDS: NYSTATIN 100,000 UNIT/ML SUSP 500,000 UNIT/5 ML CUP PO SCH ×4 (09:19→20:50)
[2023-06-25] MEDS: guaiFENesin 600 MG TABLET.ER PO SCH ×2 (09:19→20:50)
[2023-06-25 09:43] LABS: HCT 43.2 % (34.0-46.0); HGB 12.9 gm/dL (11.4-16.0); Hypochromasia Marked; MCH 27.4 pg (25.0-35.0); MCHC 29.7 g/dL (31.0-37.0); Mean Platelet Volume 8.6; Platelet Count 303 k/uL (150-450); RDW 14.1 % (11.5-15.5); WBC 10.7 k/uL (3.8-10.6)
[2023-06-25 10:04] LABS: ALT 25 U/L (4-34); AST 24 U/L (14-36); African American GFR (CKD) >90 (>60 ml/min/1.73 sqM); Albumin 3.7 g/dL (3.5-5.0); Alkaline Phosphatase 106 U/L (38-126); Anion Gap 5 mmol/L; Blood Urea Nitrogen 28 mg/dL (7-17); Carbon Dioxide 36 mmol/L (22-30); Chloride 97 mmol/L (98-107); Glucose 191 mg/dL (74-99); Magnesium 2.1 mg/dL (1.6-2.3); Non-African American GFR(CKD) >90 (>60 ml/min/1.73 sqM); Potassium 4.9 mmol/L (3.5-5.1); Sodium 138 mmol/L (137-145); Total Bilirubin 0.4 mg/dL (0.2-1.3); Total Protein 6.7 g/dL (6.3-8.2)
[2023-06-25 11:40] LABS: Glucose,Whole Blood 145 mg/dL (70-110)
[2023-06-25] MEDS ORDERED: LACTULOSE 20 GM/30 ML CUP PO ONE (12:51)
--- NOTE | 2023-06-25 13:09 | P.PN ---
Subjective Progress Note Date: 06/25/23 Principal diagnosis: Shortness of breath. Acute exacerbation of COPD with RSV tracheobronchitis, chronic atrial fibrillation with RVR This is a pleasant 57-year-old female patient with a known history of chronic obstructive pulmonary disease, oxygen dependent, chronic and ongoing tobacco dependence of 44 years, atrial fibrillation anticoagulated with Eliquis, previous myocardial infarction, anxiety/depression. She presented here to the emergency room early this morning with complaints of a 4-day history of increasing shortness of breath cough congestion fever. She was found to be in atrial fibrillation with a rapid ventricular response. She was initiated on a Cardizem drip at 5 mg/h. She was hypoxemic requiring BiPAP support 12/5 and 60% FiO2. Chest x-ray reveals low lung volumes with generalized hazy appearance which could represent atelectasis versus pulmonary edema. White count 11.9. Hemoglobin 13.4. Platelets 280. Sodium 143. Potassium 3.7. Bicarb 29. BUN 15. Creatinine 0.43. Glucose 106. proBNP 2910. Troponin negative x 1. She is found to be positive for RSV. She is seen today in consultation in the emergency department. She is currently sitting up in the stretcher. Remains on BiPAP. Remains quite dyspneic with conversation. She is alert and oriented. She has been initiated on DuoNeb inhalations, Singulair, Solu-Medrol, antibio tics in the form of azithromycin. Resumed on her Eliquis. Patient was reevaluated today on 06/22/2023, remains on BiPAP, she is on 05/02/35%, continues to have intermittent cough and wheezing, minimal improvement, definitely not getting any worse. WBC count is 11.7 hemoglobin 12.5 basic metabolic profile is normal Reevaluate today on 06/23/2023, patient remains about the same, on physical examination she sounded better, but the patient continues to have intermittent cough and wheezing, I believe her improvement is marginal but nonetheless she is improved and not getting any worse. Intermittently requiring BiPAP. Continues to cough wheeze and feels congested. Basic metabolic profile is normal renal profile is normal CBC is relatively normal Patient was reevaluated today on 06/24/2022, around 3 AM in the morning, I was notified about this patient having worsening hypercapnia and I recommended BiPAP also recommended a dose of Lasix, recommended cutting down her FiO2 to 35%, and repeat ABG this morning. Initial ABG when I was notified about this patient showed a pO2 of 78 pCO2 81 pH of 7.24, follow-up ABG this morning showed a pO2 of 88 pCO2 73 pH of 7.32. Patient diuresed with Lasix, felt better, I evaluated the patient this morning, she seems to be comfortable on BiPAP, she is on IPAP 14 EPAP of 7 and 40% and I cut it down to 35%. On physical examination she continues to have crackles rhonchi and wheezes, hence I recommended Lasix to be given again. Chest x-ray today clearly showed mild interstitial edema bilaterally, and it showed cardiomegaly. Progress note dated June 25, 2023. 57-year-old female seen in room 351. The patient is currently on 5 L nasal cannula. In addition, she uses BiPAP, and 14/7 and 35%. The patient's not receiving any IV fluids. She states that she is feeling a little bit better. She still complains of chest congestion, cough, wheezing, and chest tightness. The patient is not coughing up any phlegm. Labs include a white count of 10.7, hemoglobin 12.9, hematocrit 43.2, and a normal platelet count. Sodium 138, potassium 4.9, chloride 97, CO2 36, BUN 28, creatinine 0.51. Glucose is 145. Chest x-ray from yesterday shows right greater than left asymmetric airspace disease, consistent with either fluid overload, and or pneumonia. There is also cardiomegaly. Objective - Vital Signs Vital signs: Vital Signs Temp 97.8 F 06/25/23 09:12 Pulse 92 06/25/23 12:36 Resp 20 06/25/23 12:12 BP 130/86 06/25/23 12:12 Pulse Ox 93 L 06/25/23 12:34 FiO2 35 06/25/23 08:30 Intake & Output 06/24/23 06/25/23 06/25/23 18:59 06:59 18:59 Intake Total 720 420 Output Total 500 500 Balance 220 -500 420 Weight 124.7 kg Intake: Oral 720 420 Output: Urine 500 500 Other: Voiding Method Bedside Commode Bedside Commode Bedside Commode - Exam No acute distress, oriented 3. No audible wheezing or use of accessory muscles. HEENT examination is grossly unremarkable. Mucous membranes are moist. No oral lesions. Neck supple. Full range of motion. No adenopathy thyromegaly or neck vein distention. Cardiovascular examination reveals regular rhythm rate. S1-S2 normal. No S3 or S4. No discernible murmur noted. Heart sounds are distant. Heart rate 91 bpm. Lungs reveal scattered bilateral rhonchi and expiratory wheezes. Basilar crackles are noted. Breath sounds are equal bilaterally. 4 L saturation is 93%. Abdomen soft bowel sounds are heard. No masses or tenderness. Extremities are intact. No cyanosis or clubbing. Mild lower extremity edema is noted. Skin is without rash or lesion. Neurologic examination is brief but nonfocal. - Labs CBC & Chem 7: 06/25/23 08:36 06/25/23 08:36 Labs: Abnormal Lab Results - Last 24 Hours (Table) 06/24/23 06/24/23 06/25/23 Range/Units 16:38 20:02 06:17 WBC (3.8-10.6) k/uL MCHC (31.0-37.0) g/dL Chloride (98-107) mmol/L Carbon Dioxide (22-30) mmol/L BUN (7-17) mg/dL Creatinine (0.52-1.04) mg/dL Glucose (74-99) mg/dL POC Glucose (mg/dL) 187 H 188 H 236 H (70-110) mg/dL 06/25/23 06/25/23 06/25/23 Range/Units 08:36 08:36 11:38 WBC 10.7 H (3.8-10.6) k/uL MCHC 29.7 L (31.0-37.0) g/dL Chloride 97 L (98-107) mmol/L Carbon Dioxide 36 H (22-30) mmol/L BUN 28 H (7-17) mg/dL Creatinine 0.51 L (0.52-1.04) mg/dL Glucose 191 H (74-99) mg/dL POC Glucose (mg/dL) 145 H (70-110) mg/dL Assessment and Plan Assessment: Acute exacerbation of COPD. Acute RSV tracheobronchitis. Paroxysmal atrial fibrillation with RVR. Acute diastolic CHF. Acute on chronic hypoxemic respiratory failure. History of CAD with previous PCI. Benign essential hypertension. Hyperlipidemia. Morbid obesity with a BMI of 49. Ex-smoker. Plan: Plan dated June 25, 2023. Patient appears to be doing a bit better. Currently, the patient is on nasal cannula between 4 to 5 L. In addition, she is on and off of BiPAP, with settings of 14/7, and 35%. Labs, x-rays, and medications are reviewed. The patient's medications are appropriate. The patient continues on budesonide, formoterol, albuterol, ipratropium bromide, and Solu-Medrol. In addition, the patient continues on Singulair. We will continue to follow the patient and make recommendations along the way. Prognosis is guarded. The patient states that she recently quit smoking. We counseled her about the importance of smoking cessation. Time with Patient: Less than 30
--- NOTE | 2023-06-25 13:18 | P.PN ---
Subjective Progress Note Date: 06/25/23 HISTORY OF PRESENT ILLNESS: This is a 57-year-old female with a past medical history significant for co ronary artery disease, paroxysmal atrial fibrillation, hypertension, hyperlipidemia, COPD, and nicotine dependence. Patient follows in the office with Dr. Owens. We have been asked to see the patient in consultation for A-fib RVR. Patient examined at the bedside in the emergency room. Patient states she has been feeling short of breath for the past 3 to 4 days. She decided to come to the emergency room for further evaluation. The patient was found to be positive for RSV. She is also being treated for a COPD exacerbation. She denies any chest pain or pressure. She is currently on a BiPAP and reports improvement in her shortness of breath. Patient was also found to be A-fib with RVR. She does have a known history of atrial fibrillation. She was started on IV Cardizem for rate control. She does report mild palpitations at the time of examination. Patient does report she is a current smoker. She states that she has not had a cigarette in about 4 days and is attempting to quit. The patient does report a history of coronary artery disease. She states that she had a heart attack in 2021. She reports undergoing a cardiac catheterization at that time at [facility]. She believes she had a stent placed at that time. The details of this are unknown at this time. DIAGNOSTICS: EKG reveals A-fib with RVR Chest xray low lung volumes with generalized hazy appearance could represent atelectasis versus pulmonary edema Laboratory data: WBC 11.9. Hemoglobin 13.4. Platelet count 280. Sodium 143. Potassium 3.7. BUN 15. Creatinine 0.43. Lactic acid 1.2. Troponin negative x 1. proBNP 2910. Current home cardiac medications include Eliquis 5 mg twice a day, Lipitor 40 mg at night, lisinopril 5 mg daily, metoprolol tartrate 50 mg twice a day Most recent echocardiogram obtained in August 2021 revealing ejection fraction 55%, mild to moderate mitral regurgitation, mild tricuspid regurgitation Cardiac catheterization history: 2021 per patient, however records are unavailable at this time. June 22, 2023 Patient examined this morning at the bedside. Patient currently denies chest pain or pressure. She continues to report shortness of breath. She is wearing BiPAP at the time of examination. Telemetry reveals atrial fibrillation with a controlled ventricular rate in the 90s. Echocardiogram completed revealing ejection fraction 50 to 55% June 23, 2023 Patient examined this morning at the bedside. Patient is currently on nasal cannula with oxygen saturations greater than 92%. She reports improvement in her shortness of breath. She continues to have audible wheezing although improved. Patient remains in atrial fibrillation with a heart rate around 100. She did go into RVR overnight and was started on IV Cardizem which is currently infusing at 5 mg an hour. 06/24/2023 Patient examined this morning. Patient is sitting on the side of the bed. Patient currently denies chest pain or pressure. She continues to report shortness of breath. She is currently nasal cannula with oxygen saturations greater than 92%. She states she did have an episode overnight of dyspnea. She required a dose of IV Lasix. Chest x-ray obtained this morning reveals right greater than left asymmetric airspace disease. Additional mild interstitial changes noted. Findings may relate to interstitial and alveolar pulmonary edema. Cardiomegaly. Telemetry reveals atrial fibrillation with controlled ventricular rate in the 90s. Patient's Cardizem was increased yesterday to 60 mg 2 times a day. 06/25 Patient is seen today in follow up. Heart rate is 90-100s. Patient has been maintained on oral lasix 20 mg daily. Patient states her breathing is not getting much better. BP 130/86, PO 93% on 4L n/c and on bipap during the night. WBC 10.7, HGB 12.9. Na 138, K 4.9, BUN 28 and Creat 0.51. PHYSICAL EXAM: VITAL SIGNS: Reviewed. GENERAL: Well-developed in no acute distress. HEENT: Head is normocephalic. Pupils are equal, round. Sclerae anicteric. Mucous membranes of the mouth are moist. Neck supple. No JVD or thyromegaly LUNGS: Respirations even and unlabored, currently on n/c. Lungs with expiratory wheezing noted throughout HEART: Irregular rate and rhythm. S1 and S2 heard. Distant heart sounds. ABDOMEN: Soft. Nondistended. Nontender. EXTREMITIES: Normal range of motion. No clubbing or cyanosis. Peripheral pulses intact. Trace bilateral extremity edema NEUROLOGIC: Awake and alert. Oriented x 3. ASSESSMENT: Shortness of breath Acute COPD exacerbation Acute RSV infection Paroxysmal atrial fibrillation with RVR Acute on chronic hypoxic respiratory failure, currently on BiPAP, patient on oxygen outpatient Mild acute heart failure with preserved EF Coronary artery disease with previous PCI, details unknown Hypertension Hyperlipidemia Nicotine dependence, patient states she quit smoking 4 days ago Morbid obesity: BMI 49.6 PLAN: Continue current dose of metoprolol Continue current dose of Cardizem. Continue small dose of oral Lasix daily 20 mg. Check BNP Continue additional cardiac medications Continue telemetry monitoring Further recommendations pending patient course Nurse practitioner note has been reviewed by physician. Signing provider agrees with the documented findings, assessment, and plan of care documented by IT CONSULTANT as a scribe. Objective - Vital Signs Vital signs: Vital Signs Temp 97.9 F 06/25/23 04:22 Pulse 92 06/25/23 08:58 Resp 23 06/25/23 04:22 BP 119/87 06/25/23 04:22 Pulse Ox 93 L 06/25/23 04:22 FiO2 35 06/25/23 08:30 Intake & Output 06/24/23 06/25/23 06/25/23 18:59 06:59 18:59 Intake Total 720 420 Output Total 500 500 Balance 220 -500 420 Weight 124.7 kg Intake: Oral 720 420 Output: Urine 500 500 Other: Voiding Method Bedside Commode Bedside Commode - Labs CBC & Chem 7: 06/25/23 08:36 06/25/23 08:36 Labs: Abnormal Lab Results - Last 24 Hours (Table) 06/24/23 06/24/23 06/24/23 Range/Units 08:05 08:05 11:53 WBC 12.1 H (3.8-10.6) k/uL MCHC 30.1 L (31.0-37.0) g/dL Chloride 96 L (98-107) mmol/L Carbon Dioxide 39 H (22-30) mmol/L BUN 35 H (7-17) mg/dL Glucose 172 H (74-99) mg/dL POC Glucose (mg/dL) 143 H (70-110) mg/dL 06/24/23 06/24/23 06/25/23 Range/Units 16:38 20:02 06:17 WBC (3.8-10.6) k/uL MCHC (31.0-37.0) g/dL Chloride (98-107) mmol/L Carbon Dioxide (22-30) mmol/L BUN (7-17) mg/dL Glucose (74-99) mg/dL POC Glucose (mg/dL) 187 H 188 H 236 H (70-110) mg/dL
--- NOTE | 2023-06-25 14:37 | P.PN ---
Subjective Progress Note Date: 06/25/23 (delayed charting seen at approx 10 am) Patient is a 57-year-old female with COPD and chronic hypoxic respiratory failure on 3 L nasal nasal cannula at home, GERD, diabetes, A-fib, and coronary artery disease as well as multiple other comorbid conditions who presented to the emergency department with shortness of breath. In the ER she required BiPAP therapy due to her shortness of breath. She was found to be in A-fib with RVR. A chest x-ray showed hazy appearance representing atelectasis versus pulmonary edema. She was started on a Cardizem drip. She was admitted for RSV bronchitis and COPD exacerbation. She was started on bronchodilators and steroids. She was admitted for further monitoring. Cardio and pulmonary were consulted. She underwent echocardiogram which was a limited study but showed normal systolic function. She was transitioned to oral Cardizem and then had some recurrent RVR which was treated with increased dosing of oral Cardizem. She was slow to improve from the RSV. Patient seen and examined at bedside. Patient seen and examined at bedside. She still is feeling significantly short of breath and congested, it is somewhat better than yesterday. She does complain of some constipation. Vital signs reviewed Gen: Nontoxic, no distress, appears at stated age, obese Cardiovascular: S1S2 reg, no murmur Lungs: Rhonchi bilaterally, 3 word conversational dyspnea, no accessory muscle use Abdominal: Soft, nontender to palpation, no guarding Ext: No gross muscle atrophy, no edema b/l lower extremities, no contractures Neuro: CN II-XI grossly intact, no focal neuro deficits Psych: Alert, oriented, appropriate affect Assessment/Plan: RSV bronchitis with sepsis on admission COPD exacerbation Acute on chronic hypoxic respiratory failure, uses 3 L nasal cannula at home -Await further pulmonary recommendations -Continue with DuoNebs 4 times daily and every 2 hours as needed, Singulair 10 mg daily -Solu-Medrol 60 mg IV every 6 hours - fluid retention due to high dose steroid use, lasix 20 mg daily -Mucinex 1200 mg twice daily - Flonase 2 sprays each nostril daily, Claritin 10 mg daily, and flutter valve A-fib with RVR, now rate controlled -Cardiology recommendations reviewed: Continue current dose of metoprolol and Cardizem. Add small dose of oral Lasix. -Cardizem 60 mg 3 times daily, metoprolol 75 mg twice daily, Eliquis 5 mg twice daily Diabetes mellitus type 2 -Patient is on Trulicity at home -Continue with sliding scale insulin -Continue with Levemir 10 units at night -A1c 6.1 -Follow blood sugars Chronic: Dyslipidemia Hypertension GERD Coronary artery disease Class III obesity with BMI 49.1 Imaging: None new Data Review: Labs reviewed from today include CBC and CMP. Remarkable for white blood cell count 10.7, BUN 28. DVT prophylaxis: Eliquis Anticipated discharge date: 24 to [address]: Home This dictation was prepared using [employer] voice recognition software. Though every attempt is made to correct errors during dictation some may still exist. Objective - Vital Signs Vital signs: Vital Signs Temp 97.8 F 06/25/23 09:12 Pulse 92 06/25/23 12:36 Resp 20 06/25/23 12:12 BP 130/86 06/25/23 12:12 Pulse Ox 93 L 06/25/23 12:34 FiO2 35 06/25/23 08:30 Intake & Output 06/24/23 06/25/23 06/25/23 18:59 06:59 18:59 Intake Total 720 600 Output Total 500 500 Balance 220 -500 600 Weight 124.7 kg Intake: Oral 720 600 Output: Urine 500 500 Other: Voiding Method Bedside Commode Bedside Commode Bedside Commode # Voids 2 # Bowel Movements 0 - Labs CBC & Chem 7: 06/25/23 08:36 06/25/23 08:36 Labs: Abnormal Lab Results - Last 24 Hours (Table) 06/24/23 06/24/23 06/25/23 Range/Units 16:38 20:02 06:17 WBC (3.8-10.6) k/uL MCHC (31.0-37.0) g/dL Chloride (98-107) mmol/L Carbon Dioxide (22-30) mmol/L BUN (7-17) mg/dL Creatinine (0.52-1.04) mg/dL Glucose (74-99) mg/dL POC Glucose (mg/dL) 187 H 188 H 236 H (70-110) mg/dL 06/25/23 06/25/23 06/25/23 Range/Units 08:36 08:36 11:38 WBC 10.7 H (3.8-10.6) k/uL MCHC 29.7 L (31.0-37.0) g/dL Chloride 97 L (98-107) mmol/L Carbon Dioxide 36 H (22-30) mmol/L BUN 28 H (7-17) mg/dL Creatinine 0.51 L (0.52-1.04) mg/dL Glucose 191 H (74-99) mg/dL POC Glucose (mg/dL) 145 H (70-110) mg/dL
[2023-06-25 16:25] LABS: Glucose,Whole Blood 192 mg/dL (70-110)
[2023-06-25 20:24] LABS: Glucose,Whole Blood 226 mg/dL (70-110)
[2023-06-25] MEDS: ATORVASTATIN 40 MG TAB PO SCH (20:49)
[2023-06-25] MEDS: MIRTAZAPINE 15 MG TAB PO SCH (20:50)
[2023-06-25] MEDS: INSULIN DETEMIR (LEVEMIR) 100 UNIT/ML SYR SQ SCH (20:51)
[2023-06-26] MEDS: ALBUTEROL NEBULIZED 2.5 MG/3 ML INHALATION PRN ×2 (00:37→04:22)
[2023-06-26 05:55] LABS: Glucose,Whole Blood 152 mg/dL (70-110)
[2023-06-26] MEDS: methylPREDNISolone SOD SUCCI 125 MG/2 ML VIAL IV SCH (06:30)
[2023-06-26] MEDS: INSULIN ASPART (NovoLOG) 100 UNIT/ML VIAL SQ SCH ×4 (06:31→21:50)
[2023-06-26] MEDS: PANTOPRAZOLE 40 MG TABLET PO SCH (06:31)
[2023-06-26] MEDS: MONTELUKAST 10 MG TAB PO SCH (08:54)
[2023-06-26] MEDS: LORATADINE 10 MG TAB PO SCH (08:54)
[2023-06-26] MEDS: METOPROLOL TARTRATE 25 MG TAB PO SCH ×2 (08:54→21:49)
[2023-06-26] MEDS: FUROSEMIDE 20 MG TAB PO SCH (08:55)
[2023-06-26] MEDS: HYDROcodone/APAP 5-325MG 1 EACH TAB PO SCH ×3 (08:55→21:49)
[2023-06-26] MEDS: DILTIAZEM ORAL 60 MG TAB PO SCH ×3 (08:55→21:49)
[2023-06-26] MEDS: APIXABAN 5 MG TAB PO SCH ×2 (08:55→21:50)
[2023-06-26] MEDS: FOLIC ACID 1 MG TAB PO SCH (08:55)
[2023-06-26] MEDS: guaiFENesin 600 MG TABLET.ER PO SCH ×2 (08:55→21:50)
[2023-06-26] MEDS: NYSTATIN 100,000 UNIT/ML SUSP 500,000 UNIT/5 ML CUP PO SCH ×4 (08:55→22:50)
[2023-06-26] MEDS: FLUoxetine HCL 20 MG CAP PO SCH (08:55)
[2023-06-26] MEDS: lisinopriL 5 MG TAB PO SCH (08:55)
[2023-06-26] MEDS: GABAPENTIN 300 MG CAP PO SCH ×2 (08:56→21:50)
[2023-06-26] MEDS: FLUTICASONE 50MCG/SPRAY NASAL 16GM EA NOSTRIL SCH (08:56)
[2023-06-26] MEDS: IPRATROPIUM-ALBUTEROL 3 ML NEB INHALATION SCH ×4 (09:24→21:23)
[2023-06-26] MEDS: FORMOTEROL FUMARATE 20 MCG/2 ML NEBU INHALATION SCH ×2 (09:24→21:23)
[2023-06-26] MEDS: BUDESONIDE 1 MG/2 ML NEBU INHALATION SCH ×2 (09:24→21:23)
[2023-06-26] MEDS ORDERED: FUROSEMIDE 10 MG/ML 4 ML VIAL IV STA (10:04)
[2023-06-26 11:20] LABS: Glucose,Whole Blood 160 mg/dL (70-110)
--- NOTE | 2023-06-26 12:27 | P.PN ---
Subjective Progress Note Date: 06/26/23 Principal diagnosis: Shortness of breath. Acute exacerbation of COPD with RSV tracheobronchitis, chronic atrial fibrillation with RVR This is a pleasant 57-year-old female patient with a known history of chronic obstructive pulmonary disease, oxygen dependent, chronic and ongoing tobacco dependence of 44 years, atrial fibrillation anticoagulated with Eliquis, previous myocardial infarction, anxiety/depression. She presented here to the emergency room early this morning with complaints of a 4-day history of increasing shortness of breath cough congestion fever. She was found to be in atrial fibrillation with a rapid ventricular response. She was initiated on a Cardizem drip at 5 mg/h. She was hypoxemic requiring BiPAP support 12/5 and 60% FiO2. Chest x-ray reveals low lung volumes with generalized hazy appearance which could represent atelectasis versus pulmonary edema. White count 11.9. Hemoglobin 13.4. Platelets 280. Sodium 143. Potassium 3.7. Bicarb 29. BUN 15. Creatinine 0.43. Glucose 106. proBNP 2910. Troponin negative x 1. She is found to be positive for RSV. She is seen today in consultation in the emergency department. She is currently sitting up in the stretcher. Remains on BiPAP. Remains quite dyspneic with conversation. She is alert and oriented. She has been initiated on DuoNeb inhalations, Singulair, Solu-Medrol, antibio tics in the form of azithromycin. Resumed on her Eliquis. Patient was reevaluated today on 06/22/2023, remains on BiPAP, she is on 05/02/35%, continues to have intermittent cough and wheezing, minimal improvement, definitely not getting any worse. WBC count is 11.7 hemoglobin 12.5 basic metabolic profile is normal Reevaluate today on 06/23/2023, patient remains about the same, on physical examination she sounded better, but the patient continues to have intermittent cough and wheezing, I believe her improvement is marginal but nonetheless she is improved and not getting any worse. Intermittently requiring BiPAP. Continues to cough wheeze and feels congested. Basic metabolic profile is normal renal profile is normal CBC is relatively normal Patient was reevaluated today on 06/24/2022, around 3 AM in the morning, I was notified about this patient having worsening hypercapnia and I recommended BiPAP also recommended a dose of Lasix, recommended cutting down her FiO2 to 35%, and repeat ABG this morning. Initial ABG when I was notified about this patient showed a pO2 of 78 pCO2 81 pH of 7.24, follow-up ABG this morning showed a pO2 of 88 pCO2 73 pH of 7.32. Patient diuresed with Lasix, felt better, I evaluated the patient this morning, she seems to be comfortable on BiPAP, she is on IPAP 14 EPAP of 7 and 40% and I cut it down to 35%. On physical examination she continues to have crackles rhonchi and wheezes, hence I recommended Lasix to be given again. Chest x-ray today clearly showed mild interstitial edema bilaterally, and it showed cardiomegaly. Progress note dated June 25, 2023. 57-year-old female seen in room 351. The patient is currently on 5 L nasal cannula. In addition, she uses BiPAP, and 14/7 and 35%. The patient's not receiving any IV fluids. She states that she is feeling a little bit better. She still complains of chest congestion, cough, wheezing, and chest tightness. The patient is not coughing up any phlegm. Labs include a white count of 10.7, hemoglobin 12.9, hematocrit 43.2, and a normal platelet count. Sodium 138, potassium 4.9, chloride 97, CO2 36, BUN 28, creatinine 0.51. Glucose is 145. Chest x-ray from yesterday shows right greater than left asymmetric airspace disease, consistent with either fluid overload, and or pneumonia. There is also cardiomegaly. Progress note dated June 26, 2023. 57-year-old female seen again in room 351. The patient is currently on 4 L of oxygen. Yesterday, she was on 5 L. The patient is using BiPAP at nighttime, with settings of 14/7, and 35%. The patient is feeling better. She is not receiving any IV fluids. No new labs today other than a glucose of 152. Objective - Vital Signs Vital signs: Vital Signs Temp 98.6 F 06/26/23 08:53 Pulse 92 06/26/23 12:04 Resp 18 06/26/23 12:04 BP 111/68 06/26/23 12:04 Pulse Ox 95 06/26/23 12:04 FiO2 35 06/26/23 04:22 Intake & Output 06/25/23 06/26/23 06/26/23 18:59 06:59 18:59 Intake Total 600 10 240 Output Total 1800 Balance 600 10 -1560 Weight 128 kg Intake: IV 10 0.9 10 Oral 600 240 Output: Urine 1800 Other: Voiding Method Bedside Commode Toilet Toilet # Voids 2 2 1 # Bowel Movements 2 2 1 - Exam No acute distress, oriented 3. No audible wheezing or use of accessory muscles. HEENT examination is grossly unremarkable. Mucous membranes are moist. No oral lesions. Neck supple. Full range of motion. No adenopathy thyromegaly or neck vein distention. Cardiovascular examination reveals regular rhythm rate. S1-S2 normal. No S3 or S4. No discernible murmur noted. Heart sounds are distant. Heart rate 92 bpm. Lungs reveal scattered bilateral rhonchi and expiratory wheezes. Basilar crackles are noted. Breath sounds are equal bilaterally. 4 L saturation is 95 %. Abdomen soft bowel sounds are heard. No masses or tenderness. Extremities are intact. No cyanosis or clubbing. Mild lower extremity edema is noted. Skin is without rash or lesion. Neurologic examination is brief but nonfocal. - Labs CBC & Chem 7: 06/25/23 08:36 06/25/23 08:36 Labs: Abnormal Lab Results - Last 24 Hours (Table) 06/25/23 06/25/23 06/26/23 Range/Units 16:23 20:22 05:53 POC Glucose (mg/dL) 192 H 226 H 152 H (70-110) mg/dL 06/26/23 Range/Units 11:17 POC Glucose (mg/dL) 160 H (70-110) mg/dL Assessment and Plan Assessment: Acute exacerbation of COPD. Acute RSV tracheobronchitis. Paroxysmal atrial fibrillation with RVR. Acute diastolic CHF. Acute on chronic hypoxemic respiratory failure. History of CAD with previous PCI. Benign essential hypertension. Hyperlipidemia. Morbid obesity with a BMI of 49. Ex-smoker. Plan: Plan dated June 25, 2023. Patient appears to be doing a bit better. Currently, the patient is on nasal cannula between 4 to 5 L. In addition, she is on and off of BiPAP, with settings of 14/7, and 35%. Labs, x-rays, and medications are reviewed. The patient's medications are appropriate. The patient continues on budesonide, formoterol, albuterol, ipratropium bromide, and Solu-Medrol. In addition, the patient continues on Singulair. We will continue to follow the patient and make recommendations along the way. Prognosis is guarded. The patient states that she recently quit smoking. We counseled her about the importance of smoking cessation. Plan dated June 26, 2023. The patient appears to be doing a bit better. She feels less short of breath. The patient is currently on oxygen, at 4 L. She did use BiPAP, with settings of 14/7, and 35%, last night. She will need a sleep study, when she is discharged. Labs, x-rays, medications are reviewed. The patient continues on budesonide, formoterol, albuterol sulfate, ipratropium bromide, and Solu-Medrol. We will continue to follow make recommendations along the way. Labs, x-rays, medications are all reviewed. Prognosis is guarded. The patient states that she quit smoking once and for all, and she is counseled about the importance of smoking cessation. Time with Patient: Less than 30
--- NOTE | 2023-06-26 13:30 | P.PN ---
Subjective Progress Note Date: 06/26/23 Patient is a 57-year-old female with COPD and chronic hypoxic respiratory failure on 3 L nasal nasal cannula at home, GERD, diabetes, A-fib, and coronary artery disease as well as multiple other comorbid conditions who presented to the emergency department with shortness of breath. In the ER she required BiPAP therapy due to her shortness of breath. She was found to be in A-fib with RVR. A chest x-ray showed hazy appearance representing atelectasis versus pulmonary edema. She was started on a Cardizem drip. She was admitted for RSV bronchitis and COPD exacerbation. She was started on bronchodilators and steroids. She was admitted for further monitoring. Cardio and pulmonary were consulted. She underwent echocardiogram which was a limited study but showed normal systolic function. She was transitioned to oral Cardizem and then had some recurrent RVR which was treated with increased dosing of oral Cardizem. She was slow to improve from the RSV. Patient seen and examined at bedside. She is feeling slightly better than yesterday but still feels very wheezy. Denies any nausea or vomiting. Complains of increasing lower extremity edema. Vital signs reviewed Gen: Nontoxic, no distress, appears at stated age, obese Cardiovascular: S1S2 reg, no murmur Lungs: Rhonchi bilaterally, 3 word conversational dyspnea, no accessory muscle use Abdominal: Soft, nontender to palpation, no guarding Ext: No gross muscle atrophy, no edema b/l lower extremities, no contractures Neuro: CN II-XI grossly intact, no focal neuro deficits Psych: Alert, oriented, appropriate affect Assessment/Plan: RSV bronchitis with sepsis on admission COPD exacerbation Acute on chronic hypoxic respiratory failure, uses 3 L nasal cannula at home -Continue with DuoNebs 4 times daily and every 2 hours as needed, Singulair 10 mg daily -Solu-Medrol 40 mg IV every 8 hours - fluid retention due to high dose steroid use, lasix 20 mg daily started 06/25, -Lasix 40 mg IV push x 1. -Mucinex 1200 mg twice daily - Flonase 2 sprays each nostril daily, Claritin 10 mg daily, and flutter valve -Pulmonary note reviewed: Continue with Solu-Medrol. Continue bronchodilators and supportive care. Likely will need outpatient sleep study. A-fib with RVR, now rate controlled -Await further Cardiology recommendations -Cardizem 60 mg 3 times daily, metoprolol 75 mg twice daily, Eliquis 5 mg twice daily Diabetes mellitus type 2 -Patient is on Trulicity at home -Continue with sliding scale insulin -Continue with Levemir 10 units at night -A1c 6.1 -Follow blood sugars Chronic: Dyslipidemia Hypertension GERD Coronary artery disease Class III obesity with BMI 49.1 Imaging: None new Data Review: No blood work was done this morning but blood sugars reviewed and have been ranging from 1 92-2 26. A.m. fasting 152 DVT prophylaxis: Eliquis Anticipated discharge date: 24 to [address]: Home This dictation was prepared using [employer] voice recognition software. Though every attempt is made to correct errors during dictation some may still exist. Objective - Vital Signs Vital signs: Vital Signs Temp 98.6 F 06/26/23 08:53 Pulse 92 06/26/23 12:04 Resp 18 06/26/23 12:04 BP 111/68 06/26/23 12:04 Pulse Ox 95 06/26/23 12:04 FiO2 35 06/26/23 04:22 Intake & Output 06/25/23 06/26/23 06/26/23 18:59 06:59 18:59 Intake Total 600 10 420 Output Total 1800 Balance 600 10 -1380 Weight 128 kg Intake: IV 10 0.9 10 Oral 600 420 Output: Urine 1800 Other: Voiding Method Bedside Commode Toilet Toilet # Voids 2 2 1 # Bowel Movements 2 2 1 - Labs CBC & Chem 7: 06/25/23 08:36 06/25/23 08:36 Labs: Abnormal Lab Results - Last 24 Hours (Table) 06/25/23 06/25/23 06/26/23 Range/Units 16:23 20:22 05:53 POC Glucose (mg/dL) 192 H 226 H 152 H (70-110) mg/dL 06/26/23 Range/Units 11:17 POC Glucose (mg/dL) 160 H (70-110) mg/dL
--- NOTE | 2023-06-26 15:32 | P.PN ---
Subjective Progress Note Date: 06/26/23 HISTORY OF PRESENT ILLNESS: This is a 57-year-old female with a past medical history significant for co ronary artery disease, paroxysmal atrial fibrillation, hypertension, hyperlipidemia, COPD, and nicotine dependence. Patient follows in the office with Dr. Owens. We have been asked to see the patient in consultation for A-fib RVR. Patient examined at the bedside in the emergency room. Patient states she has been feeling short of breath for the past 3 to 4 days. She decided to come to the emergency room for further evaluation. The patient was found to be positive for RSV. She is also being treated for a COPD exacerbation. She denies any chest pain or pressure. She is currently on a BiPAP and reports improvement in her shortness of breath. Patient was also found to be A-fib with RVR. She does have a known history of atrial fibrillation. She was started on IV Cardizem for rate control. She does report mild palpitations at the time of examination. Patient does report she is a current smoker. She states that she has not had a cigarette in about 4 days and is attempting to quit. The patient does report a history of coronary artery disease. She states that she had a heart attack in 2021. She reports undergoing a cardiac catheterization at that time at [facility]. She believes she had a stent placed at that time. The details of this are unknown at this time. DIAGNOSTICS: EKG reveals A-fib with RVR Chest xray low lung volumes with generalized hazy appearance could represent atelectasis versus pulmonary edema Laboratory data: WBC 11.9. Hemoglobin 13.4. Platelet count 280. Sodium 143. Potassium 3.7. BUN 15. Creatinine 0.43. Lactic acid 1.2. Troponin negative x 1. proBNP 2910. Current home cardiac medications include Eliquis 5 mg twice a day, Lipitor 40 mg at night, lisinopril 5 mg daily, metoprolol tartrate 50 mg twice a day Most recent echocardiogram obtained in August 2021 revealing ejection fraction 55%, mild to moderate mitral regurgitation, mild tricuspid regurgitation Cardiac catheterization history: 2021 per patient, however records are unavailable at this time. June 22, 2023 Patient examined this morning at the bedside. Patient currently denies chest pain or pressure. She continues to report shortness of breath. She is wearing BiPAP at the time of examination. Telemetry reveals atrial fibrillation with a controlled ventricular rate in the 90s. Echocardiogram completed revealing ejection fraction 50 to 55% June 23, 2023 Patient examined this morning at the bedside. Patient is currently on nasal cannula with oxygen saturations greater than 92%. She reports improvement in her shortness of breath. She continues to have audible wheezing although improved. Patient remains in atrial fibrillation with a heart rate around 100. She did go into RVR overnight and was started on IV Cardizem which is currently infusing at 5 mg an hour. 06/24/2023 Patient examined this morning. Patient is sitting on the side of the bed. Patient currently denies chest pain or pressure. She continues to report shortness of breath. She is currently nasal cannula with oxygen saturations greater than 92%. She states she did have an episode overnight of dyspnea. She required a dose of IV Lasix. Chest x-ray obtained this morning reveals right greater than left asymmetric airspace disease. Additional mild interstitial changes noted. Findings may relate to interstitial and alveolar pulmonary edema. Cardiomegaly. Telemetry reveals atrial fibrillation with controlled ventricular rate in the 90s. Patient's Cardizem was increased yesterday to 60 mg 2 times a day. 06/25 Patient is seen today in follow up. Heart rate is 90-100s. Patient has been maintained on oral lasix 20 mg daily. Patient states her breathing is not getting much better. BP 130/86, PO 93% on 4L n/c and on bipap during the night. WBC 10.7, HGB 12.9. Na 138, K 4.9, BUN 28 and Creat 0.51. 06/26 Patient is seen today on bipap. She states that her breathing seems to be improving today from yesterday. She continues to have lower extremity edema. Her heart rate is in the 90s, blood pressure 111/68. PHYSICAL EXAM: VITAL SIGNS: Reviewed. GENERAL: Well-developed in no acute distress. HEENT: Head is normocephalic. Pupils are equal, round. Sclerae anicteric. Mucous membranes of the mouth are moist. Neck supple. No JVD or thyromegaly LUNGS: Respirations even and unlabored, currently on n/c. Lungs with expiratory wheezing. HEART: Irregular rate and rhythm. S1 and S2 heard. Distant heart sounds. ABDOMEN: Soft. Nondistended. Nontender. EXTREMITIES: Normal range of motion. No clubbing or cyanosis. Peripheral pulses intact. Trace bilateral extremity edema NEUROLOGIC: Awake and alert. Oriented x 3. ASSESSMENT: Shortness of breath Acute COPD exacerbation Acute RSV infection Paroxysmal atrial fibrillation with RVR Acute on chronic hypoxic respiratory failure, currently on BiPAP, patient on oxygen outpatient Mild acute heart failure with preserved EF Coronary artery disease with previous PCI, details unknown Hypertension Hyperlipidemia Nicotine dependence, patient states she quit smoking 4 days ago Morbid obesity: BMI 49.6 PLAN: Continue current dose of metoprolol Continue current dose of Cardizem. Continue small dose of oral Lasix daily 20 mg. Continue additional cardiac medications Cardiology will sign off this case and follow on an as-needed basis. Please reconsult for any new concerns. Patient may follow-up in the office in one to 2 weeks. Nurse practitioner note has been reviewed by physician. Signing provider agrees with the documented findings, assessment, and plan of care documented by ARMORED MACHINE OPERATOR as a scribe. Objective - Vital Signs Vital signs: Vital Signs Temp 98.6 F 06/26/23 08:53 Pulse 92 06/26/23 12:04 Resp 18 06/26/23 12:04 BP 111/68 06/26/23 12:04 Pulse Ox 95 06/26/23 12:04 FiO2 35 06/26/23 04:22 Intake & Output 06/25/23 06/26/23 06/26/23 18:59 06:59 18:59 Intake Total 600 10 420 Output Total 1800 Balance 600 10 -1380 Weight 128 kg Intake: IV 10 0.9 10 Oral 600 420 Output: Urine 1800 Other: Voiding Method Bedside Commode Toilet Toilet # Voids 2 2 1 # Bowel Movements 2 2 1 - Labs CBC & Chem 7: 06/25/23 08:36 06/25/23 08:36 Labs: Abnormal Lab Results - Last 24 Hours (Table) 06/25/23 06/25/23 06/26/23 Range/Units 16:23 20:22 05:53 POC Glucose (mg/dL) 192 H 226 H 152 H (70-110) mg/dL 06/26/23 Range/Units 11:17 POC Glucose (mg/dL) 160 H (70-110) mg/dL
[2023-06-26] MEDS: methylPREDNISolone SOD SUCCI 40 MG/ML 1 ML VIAL IV SCH (16:13)
[2023-06-26 16:31] LABS: Glucose,Whole Blood 258 mg/dL (70-110)
[2023-06-26 20:10] LABS: Glucose,Whole Blood 174 mg/dL (70-110)
[2023-06-26] MEDS: MIRTAZAPINE 15 MG TAB PO SCH (21:50)
[2023-06-26] MEDS: ATORVASTATIN 40 MG TAB PO SCH (21:50)
[2023-06-26] MEDS: INSULIN DETEMIR (LEVEMIR) 100 UNIT/ML SYR SQ SCH (21:50)
[2023-06-27] MEDS: methylPREDNISolone SOD SUCCI 40 MG/ML 1 ML VIAL IV SCH ×2 (00:48→08:28)
[2023-06-27] MEDS: IPRATROPIUM-ALBUTEROL 3 ML NEB INHALATION PRN ×2 (01:23→05:15)
[2023-06-27 05:55] LABS: Glucose,Whole Blood 162 mg/dL (70-110)
[2023-06-27] MEDS: INSULIN ASPART (NovoLOG) 100 UNIT/ML VIAL SQ SCH (06:14)
[2023-06-27] MEDS: PANTOPRAZOLE 40 MG TABLET PO SCH (06:14)
[2023-06-27] MEDS: IPRATROPIUM-ALBUTEROL 3 ML NEB INHALATION SCH ×2 (08:25→11:43)
[2023-06-27] MEDS: BUDESONIDE 1 MG/2 ML NEBU INHALATION SCH (08:25)
[2023-06-27] MEDS: FORMOTEROL FUMARATE 20 MCG/2 ML NEBU INHALATION SCH (08:25)
[2023-06-27] MEDS: HYDROcodone/APAP 5-325MG 1 EACH TAB PO SCH (08:28)
[2023-06-27] MEDS: DILTIAZEM ORAL 60 MG TAB PO SCH (08:28)
[2023-06-27] MEDS: FUROSEMIDE 20 MG TAB PO SCH (08:28)
[2023-06-27] MEDS: guaiFENesin 600 MG TABLET.ER PO SCH (08:28)
[2023-06-27] MEDS: APIXABAN 5 MG TAB PO SCH (08:29)
[2023-06-27] MEDS: GABAPENTIN 300 MG CAP PO SCH (08:29)
[2023-06-27] MEDS: FOLIC ACID 1 MG TAB PO SCH (08:29)
[2023-06-27] MEDS: METOPROLOL TARTRATE 25 MG TAB PO SCH (08:29)
[2023-06-27] MEDS: lisinopriL 5 MG TAB PO SCH (08:29)
[2023-06-27] MEDS: LORATADINE 10 MG TAB PO SCH (08:29)
[2023-06-27] MEDS: MONTELUKAST 10 MG TAB PO SCH (08:29)
[2023-06-27] MEDS: FLUoxetine HCL 20 MG CAP PO SCH (08:30)
[2023-06-27 08:33] VITALS: BP 113/76; RESP 22; TEMP 98
[2023-06-27] MEDS ORDERED: FUROSEMIDE 10 MG/ML 4 ML VIAL IV STA (09:40)
[2023-06-27] MEDS: FLUTICASONE 50MCG/SPRAY NASAL 16GM EA NOSTRIL SCH (10:36)
[2023-06-27] MEDS: NYSTATIN 100,000 UNIT/ML SUSP 500,000 UNIT/5 ML CUP PO SCH (10:36)
--- NOTE | 2023-06-27 10:51 | P.DS ---
Providers Date of admission: 06/21/23 10:14 Expected date of discharge: 06/27/23 Attending physician: Prakash Gomez MD Consults: 06/21/23 10:17 Consult Physician Routine Consulting Provider: Kenneth Cavazos Consult Reason/Comments: afib rvr Do you want consulting provider notified?: Yes Consult Physician Routine Consulting Provider: Ibeth Watson Consult Reason/Comments: COPD exacerbation Do you want consulting provider notified?: Yes Primary care physician: Sugey Foss MD Hospital Course: Discharge Diagnosis: RSV bronchitis with sepsis on admission COPD exacerbation Acute on chronic hypoxic respiratory failure, uses 3 L nasal cannula at home A-fib with RVR, now rate controlled Diabetes mellitus type 2 with hyperglycemia Thrush Constipation Chronic: Dyslipidemia Hypertension GERD Coronary artery disease Class III obesity with BMI 49.1 Hospital Course: Patient is a 57-year-old female with COPD and chronic hypoxic respiratory failure on 3 L nasal nasal cannula at home, GERD, diabetes, A-fib, and coronary artery disease as well as multiple other comorbid conditions who presented to the emergency department with shortness of breath. In the ER she required BiPAP therapy due to her shortness of breath. She was found to be in A-fib with RVR. A chest x-ray showed hazy appearance representing atelectasis versus pulmonary edema. She was started on a Cardizem drip. She was admitted for RSV bronchitis and COPD exacerbation. She was started on bronchodilators and steroids. She was admitted for further monitoring. Cardio and pulmonary were consulted. She underwent echocardiogram which was a limited study but showed normal systolic function. She was transitioned to oral Cardizem and then had some recurrent RVR which was treated with increased dosing of oral Cardizem. She was slow to improve from the RSV. She was back down to 4.5 L, she was wearing bipap with rest. She was cleared by pulmonary and cardio for discharge. Follow-up: Please a steroid taper. No antibiotics indicated at this point as the patient has RSV. She will have Lasix 40 mg oral daily for the next 5 days at home due to increased lower extremity edema from her high-dose steroids. She will complete nystatin for her thrush. She will follow-up with Dr. Lemus in 1 week, Dr. Owens in 2 weeks, and Dr. Li in 1 to 2 days. Patient seen and examined at bedside. Still feeling tired and winded. We again discussed that it will be a long recovery form RSV Vital signs reviewed and stable. General: Nontoxic, no distress, appears at stated age Cardiovascular: S1S2 reg, no murmur, positive posterior tibial pulse bilateral, Lungs: CTA bilateral, no rhonchi, no rales, no accessory muscle use Abdominal: Soft, nontender to palpation, no guarding, no appreciable organomegaly Ext: No gross muscle atrophy, no edema b/l lower extremities, no contractures Neuro: CN II-XI grossly intact, no focal neuro deficits Psych: Alert, oriented, appropriate affect A total of 37 minutes of time were spent preparing this complex discharge summary. Patient was discharged on 06/27/23. This dictation was prepared using [employer] voice recognition software. Though every attempt is made to correct errors during dictation some may still exist. Patient Condition at Discharge: Stable Plan - Discharge Summary Discharge Rx Participant: Yes New Discharge Prescriptions: New predniSONE [Deltasone] 0 mg PO DIRECTED #24 tab Furosemide [Lasix] 40 mg PO DAILY #5 tablet Metoprolol Tartrate [Lopressor] 75 mg PO BID #180 tab Nystatin 100,000 Unit/ml Susp [Mycostatin Oral Susp] 500,000 unit PO QID 9 Days #200 ml Diltiazem Oral [Cardizem*] 60 mg PO TID #90 tab Fluticasone Nas[place] [Flonase Nasal [place]] 2 spray EA NOSTRIL DAILY ml guaiFENesin [Mucinex] 1,200 mg PO Q12HR tab Continue HYDROcodone/APAP 5-325MG [[place] 5-325] 1 tab PO TID Cetirizine HCl 10 mg PO DAILY Apixaban [Eliquis] 5 mg PO BID Atorvastatin [Lipitor] 40 mg PO HS Dulaglutide [Trulicity] 1.5 mg SQ SA Ergocalciferol [Vitamin D2 (1250 Mcg = 56151 Iu)] 1,250 mcg PO SA lisinopriL [Zestril] 5 mg PO DAILY Omeprazole 20 mg PO DAILY Folic Acid 1 mg PO DAILY FLUoxetine HCL [PROzac] 40 mg PO DAILY Gabapentin [Neurontin] 300 mg PO BID Mirtazapine [Remeron] 15 mg PO HS Montelukast [Singulair] 10 mg PO DAILY Ipratropium-Albuterol Nebulize [Duoneb 0.5 mg-3 mg/3 ml Soln] 3 ml INHALATION RT-QID Discontinued Metoprolol Tartrate [Lopressor] 50 mg PO BID predniSONE [Deltasone] 40 mg PO DAILY Amoxic-Pot Clav 875-125Mg [Augmentin 875-125] 1 tab PO Q12HR Discharge Medication List Apixaban [Eliquis] 5 mg PO BID 10/26/22 [History] Atorvastatin [Lipitor] 40 mg PO HS 10/26/22 [History] Cetirizine HCl 10 mg PO DAILY 10/26/22 [History] FLUoxetine HCL [PROzac] 40 mg PO DAILY 10/26/22 [History] Folic Acid 1 mg PO DAILY 10/26/22 [History] Gabapentin [Neurontin] 300 mg PO BID 10/26/22 [History] HYDROcodone/APAP 5-325MG [[place] 5-325] 1 tab PO TID 10/26/22 [History] Mirtazapine [Remeron] 15 mg PO HS 10/26/22 [History] Montelukast [Singulair] 10 mg PO DAILY 10/26/22 [History] Dulaglutide [Trulicity] 1.5 mg SQ SA 06/21/23 [History] Ergocalciferol [Vitamin D2 (1250 Mcg = 27385 Iu)] 1,250 mcg PO SA 06/21/23 [History] Ipratropium-Albuterol Nebulize [Duoneb 0.5 mg-3 mg/3 ml Soln] 3 ml INHALATION RT-QID 06/21/23 [History] Omeprazole 20 mg PO DAILY 06/21/23 [History] lisinopriL [Zestril] 5 mg PO DAILY 06/21/23 [History] Diltiazem Oral [Cardizem*] 60 mg PO TID #90 tab 06/27/23 [Rx] Fluticasone Nas[place] [Flonase Nas[place]] 2 spray EA NOSTRIL DAILY ml 06/27/23 [Rx] Furosemide [Lasix] 40 mg PO DAILY #5 tablet 06/27/23 [Rx] Metoprolol Tartrate [Lopressor] 75 mg PO BID #180 tab 06/27/23 [Rx] Nystatin 100,000 Unit/ml Susp [Mycostatin Oral Susp] 500,000 unit PO QID 9 Days #200 ml 06/27/23 [Rx] guaiFENesin [Mucinex] 1,200 mg PO Q12HR tab 06/27/23 [Rx] predniSONE [Deltasone] 0 mg PO DIRECTED #24 tab 06/27/23 [Rx] Follow up Appointment(s)/Referral(s): Bernardino Lemus DO [Doctor of Osteopathic Medicine] - 1 Week Sugey Foss MD [Primary Care Provider] - 1-2 days Antonio Owens MD [STAFF PHYSICIAN] - 2 Weeks Activity/Diet/Wound Care/Special Instructions: Activity: as tolerated Diet: Heart Healthy 2 gram sodium Special Instructions: Keep your legs elevated when sitting. Walk frequently. Use compression canes when up and ambulating. When you see Dr. Lemus at your outpatient appointment he will arrange for a sleep study. Monitor blood sugars twice daily while on oral steroids. Call Dr. Foss id your sugars are greater than 250 twice in a row. Discharge Disposition: HOME WITH HOME HEALTH SERVICES
--- NOTE | 2023-06-27 11:31 | P.PN ---
Subjective Progress Note Date: 06/27/23 Principal diagnosis: Shortness of breath. Acute exacerbation of COPD with RSV tracheobronchitis, chronic atrial fibrillation with RVR This is a pleasant 57-year-old female patient with a known history of chronic obstructive pulmonary disease, oxygen dependent, chronic and ongoing tobacco dependence of 44 years, atrial fibrillation anticoagulated with Eliquis, previous myocardial infarction, anxiety/depression. She presented here to the emergency room early this morning with complaints of a 4-day history of increasing shortness of breath cough congestion fever. She was found to be in atrial fibrillation with a rapid ventricular response. She was initiated on a Cardizem drip at 5 mg/h. She was hypoxemic requiring BiPAP support 12/5 and 60% FiO2. Chest x-ray reveals low lung volumes with generalized hazy appearance which could represent atelectasis versus pulmonary edema. White count 11.9. Hemoglobin 13.4. Platelets 280. Sodium 143. Potassium 3.7. Bicarb 29. BUN 15. Creatinine 0.43. Glucose 106. proBNP 2910. Troponin negative x 1. She is found to be positive for RSV. She is seen today in consultation in the emergency department. She is currently sitting up in the stretcher. Remains on BiPAP. Remains quite dyspneic with conversation. She is alert and oriented. She has been initiated on DuoNeb inhalations, Singulair, Solu-Medrol, antibio tics in the form of azithromycin. Resumed on her Eliquis. Patient was reevaluated today on 06/22/2023, remains on BiPAP, she is on 05/02/35%, continues to have intermittent cough and wheezing, minimal improvement, definitely not getting any worse. WBC count is 11.7 hemoglobin 12.5 basic metabolic profile is normal Reevaluate today on 06/23/2023, patient remains about the same, on physical examination she sounded better, but the patient continues to have intermittent cough and wheezing, I believe her improvement is marginal but nonetheless she is improved and not getting any worse. Intermittently requiring BiPAP. Continues to cough wheeze and feels congested. Basic metabolic profile is normal renal profile is normal CBC is relatively normal Patient was reevaluated today on 06/24/2022, around 3 AM in the morning, I was notified about this patient having worsening hypercapnia and I recommended BiPAP also recommended a dose of Lasix, recommended cutting down her FiO2 to 35%, and repeat ABG this morning. Initial ABG when I was notified about this patient showed a pO2 of 78 pCO2 81 pH of 7.24, follow-up ABG this morning showed a pO2 of 88 pCO2 73 pH of 7.32. Patient diuresed with Lasix, felt better, I evaluated the patient this morning, she seems to be comfortable on BiPAP, she is on IPAP 14 EPAP of 7 and 40% and I cut it down to 35%. On physical examination she continues to have crackles rhonchi and wheezes, hence I recommended Lasix to be given again. Chest x-ray today clearly showed mild interstitial edema bilaterally, and it showed cardiomegaly. Progress note dated June 25, 2023. 57-year-old female seen in room 351. The patient is currently on 5 L nasal cannula. In addition, she uses BiPAP, and 14/7 and 35%. The patient's not receiving any IV fluids. She states that she is feeling a little bit better. She still complains of chest congestion, cough, wheezing, and chest tightness. The patient is not coughing up any phlegm. Labs include a white count of 10.7, hemoglobin 12.9, hematocrit 43.2, and a normal platelet count. Sodium 138, potassium 4.9, chloride 97, CO2 36, BUN 28, creatinine 0.51. Glucose is 145. Chest x-ray from yesterday shows right greater than left asymmetric airspace disease, consistent with either fluid overload, and or pneumonia. There is also cardiomegaly. Progress note dated June 26, 2023. 57-year-old female seen again in room 351. The patient is currently on 4 L of oxygen. Yesterday, she was on 5 L. The patient is using BiPAP at nighttime, with settings of 14/7, and 35%. The patient is feeling better. She is not receiving any IV fluids. No new labs today other than a glucose of 152. Progress note dated June 27, 2023. 57-year-old female seen in room 351. The patient is currently on BiPAP, with settings of 14/7, 35%. The patient's overall situation is much improved, and in my opinion, she could be considered for possible discharge. When she is not on BiPAP, she is wearing oxygen, at 3 to 4 L/min. Laboratory data today includes a glucose of 162. Microbiology is currently negative. Objective - Vital Signs Vital signs: Vital Signs Temp 98 F 06/27/23 08:00 Pulse 93 06/27/23 08:51 Resp 22 06/27/23 08:00 BP 113/76 06/27/23 08:00 Pulse Ox 95 06/27/23 08:00 FiO2 35 06/27/23 00:05 Intake & Output 06/26/23 06/27/23 06/27/23 18:59 06:59 18:59 Intake Total 600 240 Output Total 2450 850 Balance -1850 -850 240 Weight 127.5 kg Intake: Oral 600 240 Output: Urine 2450 850 Other: Voiding Method Toilet Toilet Toilet # Voids 1 # Bowel Movements 1 - Exam No acute distress, oriented 3. No audible wheezing or use of accessory muscles. HEENT examination is grossly unremarkable. Mucous membranes are moist. No oral lesions. Neck supple. Full range of motion. No adenopathy thyromegaly or neck vein distention. Cardiovascular examination reveals regular rhythm rate. S1-S2 normal. No S3 or S4. No discernible murmur noted. Heart sounds are distant. Heart rate 93 bpm. Lungs reveal scattered bilateral rhonchi and expiratory wheezes. Basilar crackles are noted. Breath sounds are equal bilaterally. 4.5 L saturation is 96 %. Abdomen soft bowel sounds are heard. No masses or tenderness. Extremities are intact. No cyanosis or clubbing. Mild lower extremity edema is noted. Skin is without rash or lesion. Neurologic examination is brief but nonfocal. - Labs CBC & Chem 7: 06/25/23 08:36 06/25/23 08:36 Labs: Abnormal Lab Results - Last 24 Hours (Table) 06/26/23 06/26/23 06/27/23 Range/Units 16:29 20:05 05:51 POC Glucose (mg/dL) 258 H 174 H 162 H (70-110) mg/dL Assessment and Plan Assessment: Acute exacerbation of COPD. Acute RSV tracheobronchitis. Paroxysmal atrial fibrillation with RVR. Acute diastolic CHF. Acute on chronic hypoxemic respiratory failure. History of CAD with previous PCI. Benign essential hypertension. Hyperlipidemia. Morbid obesity with a BMI of 49. Ex-smoker. Plan: Plan dated June 25, 2023. Patient appears to be doing a bit better. Currently, the patient is on nasal cannula between 4 to 5 L. In addition, she is on and off of BiPAP, with settings of 14/7, and 35%. Labs, x-rays, and medications are reviewed. The patient's medications are appropriate. The patient continues on budesonide, formoterol, albuterol, ipratropium bromide, and Solu-Medrol. In addition, the patient continues on Singulair. We will continue to follow the patient and make recommendations along the way. Prognosis is guarded. The patient states that she recently quit smoking. We counseled her about the importance of smoking cessation. Plan dated June 26, 2023. The patient appears to be doing a bit better. She feels less short of breath. The patient is currently on oxygen, at 4 L. She did use BiPAP, with settings of 14/7, and 35%, last night. She will need a sleep study, when she is discharged. Labs, x-rays, medications are reviewed. The patient continues on budesonide, formoterol, albuterol sulfate, ipratropium bromide, and Solu-Medrol. We will continue to follow make recommendations along the way. Labs, x-rays, medications are all reviewed. Prognosis is guarded. The patient states that she quit smoking once and for all, and she is counseled about the importance of smoking cessation. Plan dated June 27, 2023. The patient is on O2, at between 4 to 4.5 L, by nasal cannula. In addition, she has been using BiPAP intermittently at 14/7 and 35%. Labs, x-rays, and medications are reviewed. The patient is stable for discharge, from the pul monary standpoint. She will need an outpatient sleep study. This may qualify her for either CPAP or BiPAP at home. Additional recommendations and suggestions are forthcoming. The patient is counseled about the importance of smoking cessation. We will continue to follow should the patient not be discharged. The patient should see me in the office, after discharge. Time with Patient: Less than 30
[2023-06-27 11:56] VITALS: PULSE 98
== END 2023-06-27 12:25 | disposition home health service (06) | DRG 720 ==
LOC: EC 08:45 → 3SCARD 10:14
PROVIDERS: ADMIT Student in an Organized Health Care Education/Training Program; ATTEND Student in an Organized Health Care Education/Training Program
PROC: 5A09457 Assistance with Respiratory Ventilation, 24-96 Consecutive Hours, Continuous Positive Airway Pressure (ICD-10-PCS; principal; 2023-06-21)
DX: A41.89 Other specified sepsis (principal); J96.21 Acute and chronic respiratory failure with hypoxia; I50.31 Acute diastolic (congestive) heart failure; J21.0 Acute bronchiolitis due to respiratory syncytial virus; J44.1 Chronic obstructive pulmonary disease with (acute) exacerbation; J44.0 Chronic obstructive pulmonary disease with (acute) lower respiratory infection; J96.22 Acute and chronic respiratory failure with hypercapnia; E11.40 Type 2 diabetes mellitus with diabetic neuropathy, unspecified; B37.0 Candidal stomatitis; I11.0 Hypertensive heart disease with heart failure; E11.65 Type 2 diabetes mellitus with hyperglycemia; E66.01 Morbid (severe) obesity due to excess calories; Z68.42 Body mass index [BMI] 45.0-49.9, adult; I48.0 Paroxysmal atrial fibrillation; F32.A Depression, unspecified; J20.5 Acute bronchitis due to respiratory syncytial virus; E78.5 Hyperlipidemia, unspecified; F41.1 Generalized anxiety disorder; I25.10 Atherosclerotic heart disease of native coronary artery without angina pectoris; I25.2 Old myocardial infarction; F17.210 Nicotine dependence, cigarettes, uncomplicated; Z71.6 Tobacco abuse counseling; K21.9 Gastro-esophageal reflux disease without esophagitis; K80.20 Calculus of gallbladder without cholecystitis without obstruction; K59.00 Constipation, unspecified; T38.0X5A Adverse effect of glucocorticoids and synthetic analogues, initial encounter; Z99.81 Dependence on supplemental oxygen; Z79.01 Long term (current) use of anticoagulants; Z79.85 Long-term (current) use of injectable non-insulin antidiabetic drugs; Z79.891 Long term (current) use of opiate analgesic; Z79.899 Other long term (current) drug therapy; Z95.5 Presence of coronary angioplasty implant and graft; Z88.6 Allergy status to analgesic agent; Z88.1 Allergy status to other antibiotic agents
CPT/HCPCS: 36415; 36600; 71045; 80048; 80053; 82805; 83036; 83605; 83735; 83880; 84145; 84484; 85025; 85027; 85610; 85730; 87636; 93005; 93306; 94640; 94660; 94667; 94668; 94760; 96365; 96366; 96367; 96375; 96376; 99291

== ENCOUNTER 2023-06-29 13:11 | Inpatient (IN) | payer OTHER ==
[2023-06-29] MEDS: ALBUTEROL NEBULIZED 2.5 MG/3 ML INHALATION STA (13:20)
[2023-06-29] MEDS: IPRATROPIUM 0.5 MG/2.5 ML NEBU INHALATION STA (13:20)
--- NOTE | 2023-06-29 13:23 | ED ---
General Adult HPI - General Chief complaint: Shortness of Breath Stated complaint: SOB Time Seen by Provider: 06/29/23 13:15 Source: patient, EMS, RN notes reviewed, old records reviewed Mode of arrival: EMS Limitations: no limitations - History of Present Illness Initial comments: This is a 57-year-old female who presents to the emergency department past medical history significant for COPD. Patient was recently admitted to the hospital for COPD and RSV positive. Patient states she went home a few days ago but she continues to have difficulty breathing and it seems to be getting worse. Patient states she quit smoking about 10 days ago. Patient is normally on 3 and half liters of oxygen at home she had to bump it up to 5 but still was feeling short of breath. Patient was put on CPAP by EMS and stated that it felt much better. Patient denies any headache patient has chest pain patient denies any palpitations patient has any back pain or abdominal pain - Related Data Home Medications Medication Instructions Recorded Confirmed Apixaban [Eliquis] 5 mg PO BID 10/26/22 06/29/23 Atorvastatin [Lipitor] 40 mg PO HS 10/26/22 06/29/23 Cetirizine HCl 10 mg PO DAILY 10/26/22 06/29/23 FLUoxetine HCL [PROzac] 40 mg PO DAILY@1200 10/26/22 06/29/23 Folic Acid 1 mg PO DAILY 10/26/22 06/29/23 Gabapentin [Neurontin] 300 mg PO BID 10/26/22 06/29/23 HYDROcodone/APAP 5-325MG [[place] 1 tab PO TID 10/26/22 06/29/23 5-325] Mirtazapine [Remeron] 15 mg PO HS 10/26/22 06/29/23 Montelukast [Singulair] 10 mg PO DAILY 10/26/22 06/29/23 Dulaglutide [Trulicity] 1.5 mg SQ SA 06/21/23 06/29/23 Ergocalciferol [Vitamin D2 (1250 1,250 mcg PO SA 06/21/23 06/29/23 Mcg = 77170 Iu)] Ipratropium-Albuterol Nebulize 3 ml INHALATION RT-QID 06/21/23 06/29/23 [Duoneb 0.5 mg-3 mg/3 ml Soln] Omeprazole 20 mg PO DAILY 06/21/23 06/29/23 lisinopriL [Zestril] 5 mg PO DAILY 06/21/23 06/29/23 predniSONE [Deltasone] See Taper PO DAILY@1200 06/29/23 06/29/23 Previous Rx's Medication Instructions Recorded Diltiazem Oral [Cardizem*] 60 mg PO TID #90 tab 06/27/23 Fluticasone Nasal [place] [Flonase 2 spray EA NOSTRIL DAILY ml 06/27/23 Nasal [place]] Furosemide [Lasix] 40 mg PO DAILY #5 tablet 06/27/23 Metoprolol Tartrate [Lopressor] 75 mg PO BID #180 tab 06/27/23 Nystatin 100,000 Unit/ml Susp 500,000 unit PO QID 9 Days #200 ml 06/27/23 [Mycostatin Oral Susp] guaiFENesin [Mucinex] 1,200 mg PO Q12HR tab 06/27/23 Allergies Allergy/AdvReac Type Severity Reaction Status Date / Time ibuprofen Allergy Rash/Hives Verified 06/29/23 15:12 NSAIDS (Non-Steroidal Allergy Rash/Hives Verified 06/29/23 15:12 Anti-Inflamma tetracycline Allergy Rash/Hives Verified 06/29/23 15:12 Review of Systems ROS Statement: Those systems with pertinent positive or pertinent negative responses have been documented in the HPI. ROS Other: All systems not noted in ROS Statement are negative. Past Medical History Past Medical History: Atrial Fibrillation, Asthma, COPD, Hyperlipidemia, Hypertension, Myocardial Infarction ([place]), Respiratory Disorder Additional Past Medical History / Comment(s): wears oxygen 3lnc when mobile Last Myocardial Infarction Date:: 2021 History of Any Multi-Drug Resistant Organisms: None Reported Past Surgical History: Heart Catheterization With Stent, Orthopedic Surgery Additional Past Surgical History / Comment(s): metal plate right arm, oral surgery fracture jawed,hx gallstones Past Anesthesia/Blood Transfusion Reactions: No Reported Reaction Additional Past Anesthesia/Blood Transfusion Reaction / Comment(s): No blood transfusion Date of Last Stent Placement:: 2021 Past Psychological History: Anxiety, Depression Smoking Status: Current some day smoker Past Alcohol Use History: None Reported Past Drug Use History: None Reported - Past Family History Mother Family Medical History: Cancer Additional Family Medical History / Comment(s): uterine, breast, lymph nodes General Exam - General Exam Comments Initial Comments: GENERAL: Patient is well-developed and well-nourished. Patient is nontoxic and well- hydrated and is in moderate e distress. ENT: Neck is soft and supple. No significant lymphadenopathy is noted. Oropharynx is clear. Moist mucous membranes. Neck has full range of motion without eliciting any pain. EYES: The sclera were anicteric and conjunctiva were pink and moist. Extraocular movements were intact and pupils were equal round and reactive to light. Eyelids were unremarkable. PULMONARY: Diminished breath sounds expiratory wheezing diffusely CARDIOVASCULAR: Patient's heart rate is at about 100 beats a minute ABDOMEN: Soft and nontender with normal bowel sounds. No palpable organomegaly was noted. There is no palpable pulsatile mass. SKIN: Skin is clear with no lesions or rashes and otherwise unremarkable. NEUROLOGIC: Patient is alert and oriented x3. Cranial nerves II through XII are grossly intact. Motor and sensory are also intact. Normal speech, volume and content. Symmetrical smile. MUSCULOSKELETAL: Normal extremities with adequate strength and full range of motion. No lower extremity swelling or edema. No calf tenderness. LYMPHATICS: No significant lymphadenopathy is noted PSYCHIATRIC: Normal psychiatric evaluation. Limitations: no limitations Course Vital Signs 06/29/23 06/29/23 06/29/23 13:13 13:18 13:19 Temperature 98 F Pulse Rate 103 H Respiratory 28 H 24 Rate Blood Pressure 113/82 O2 Sat by Pulse 92 L 89 L Oximetry Fraction of Inspired Oxygen (FIO2) 06/29/23 06/29/23 06/29/23 13:21 13:37 14:06 Temperature Pulse Rate 101 H 89 102 H Respiratory 22 20 24 Rate Blood Pressure O2 Sat by Pulse 90 L Oximetry Fraction of Inspired Oxygen (FIO2) 06/29/23 06/29/23 06/29/23 14:20 14:22 14:24 Temperature Pulse Rate Respiratory Rate Blood Pressure O2 Sat by Pulse 91 L 98 Oximetry Fraction of 30 30 Inspired Oxygen (FIO2) Medical Decision Making - Medical Decision Making EKG is interpreted by myself. EKG shows atrial fibrillation at 101 bpm QRS is 94 QT interval 324 QTc is 382. Patient's EKG shows no ST segment ovation. Patient has been in atrial fibrillation before Was pt. sent in by a medical professional or institution (, PA, [employer], urgent care, hospital, or long-term...) When possible be specific @ -No Did you speak to anyone other than the patient for history (EMS, parent, family, police, friend...)? What history was obtained from this source @ -No Did you review nursing and triage notes (agree or disagree)? Why? @ -I reviewed and agree with nursing and triage notes Were old charts reviewed (outside hosp., previous admission, EMS record, old EKG, old radiological studies, urgent care reports/EKG's, long-term records)? Report findings @ -I have reviewed old charts and old lab work on this patient Differential Diagnosis (chest pain, altered mental status, abdominal pain women, abdominal pain men, vaginal bleeding, weakness, fever, dyspnea, syncope, headache, dizziness, GI bleed, back pain, seizure, CVA, palpatations, mental health, musculoskeletal)? @ -Differential Dyspnea: Coronary syndrome, arrhythmia, tamponade, asthma, COPD, pulmonary embolism, pneumonia, pneumothorax, pulmonary effusion, anaphylaxis, diabetic ketoacidosis, flailed chest, pulmonary contusion, diaphragmatic rupture, anemia, neuromuscular, this is not meant to be an all-inclusive list. EKG interpreted by me (3pts min.). @ -As above X-rays interpreted by me (1pt min.). @ -Chest x-ray shows no acute abnormality CT interpreted by me (1pt min.). @ -None done U/S interpreted by me (1pt. min.). @ -None done What testing was considered but not performed or refused? (CT, X-rays, U/S, labs)? Why? @ -None What meds were considered but not given or refused? Why? @ -None Did you discuss the management of the patient with other professionals (professionals i.e. , PA, [employer], lab, RT, psych nurse, social and human services assistant, geodetic survey director, teacher, health promotion officer, case hardener)? Give summary @ -I spoke with sound physicians they agreed to admit the patient admit the patient and wrote admitting orders Was smoking cessation discussed for >3mins.? @ -No Was critical care preformed (if so, how long)? @ -35 minutes Were there social determinants of health that impacted care today? How? (H omelessness, low income, unemployed, alcoholism, drug addiction, transportation, low edu. Level, literacy, decrease access to med. care, senior care, rehab)? @ -No Was there de-escalation of care discussed even if they declined (Discuss DNR or withdrawal of care, Hospice)? DNR status @ -No What co-morbidities impacted this encounter? (DM, HTN, Smoking, COPD, CAD, Cancer, CVA, ARF, Chemo, Hep., AIDS, mental health diagnosis, sleep apnea, morbid obesity)? @ -None Was patient admitted / discharged? Hospital course, mention meds given and route, prescriptions, significant lab abnormalities, going to OR and other pertinent info. @ -Patient was placed on BiPAP because she is having a difficult time breathing her 3-1/2 L of oxygen. Patient also received breathing treatments. Patient also received Rocephin and steroids. Patient will be admitted to [facility] physicians. Undiagnosed new problem with uncertain prognosis? @ -No Drug Therapy requiring intensive monitoring for toxicity (Heparin, Nitro, Insu marcelo, Cardizem)? @ -No Were any procedures done? @ -No Diagnosis/symptom? @ -COPD exacerbation Acute, or Chronic, or Acute on Chronic? @ -Acute Uncomplicated (without systemic symptoms) or Complicated (systemic symptoms)? @ -Complicated Side effects of treatment? @ -No Exacerbation, Progression, or Severe Exacerbation? @ -No Poses a threat to life or bodily function? How? (Chest pain, [place], [place], pneumonia, PE, COPD, DKA, ARF, appy, cholecystitis, CVA, Diverticulitis, Homicidal, Suicidal, threat to staff... and all critical care pts) @ -Yes this could lead to hypoxia and endorgan dysfunction - Lab Data Result diagrams: 06/29/23 13:21 06/29/23 13:21 Lab Results 06/29/23 06/29/23 06/29/23 Range/Units 13:21 13:21 13:21 WBC 17.7 H (3.8-10.6) k/uL RBC 5.05 (3.80-5.40) m/uL Hgb 14.2 (11.4-16.0) gm/dL Hct 44.6 (34.0-46.0) % MCV 88.4 (80.0-100.0) fL MCH 28.2 (25.0-35.0) pg MCHC 31.9 (31.0-37.0) g/dL RDW 14.5 (11.5-15.5) % Plt Count 317 (150-450) k/uL MPV 7.8 Neutrophils % 87 % Lymphocytes % 9 % Monocytes % 4 % Eosinophils % 0 % Basophils % 0 % Neutrophils # 15.4 H (1.3-7.7) k/uL Lymphocytes # 1.5 (1.0-4.8) k/uL Monocytes # 0.7 (0-1.0) k/uL Eosinophils # 0.1 (0-0.7) k/uL Basophils # 0.0 (0-0.2) k/uL Hypochromasia Moderate PT 10.8 (10.0-12.5) sec INR 1.0 (<1.2) APTT 24.0 (22.0-30.0) sec Sodium 138 (137-145) mmol/L Potassium 4.3 (3.5-5.1) mmol/L Chloride 92 L (98-107) mmol/L Carbon Dioxide 42 H* (22-30) mmol/L Anion Gap 4 mmol/L BUN 30 H (7-17) mg/dL Creatinine 0.65 (0.52-1.04) mg/dL Est GFR (CKD-EPI)AfAm >90 (>60 ml/min/1.73 sqM) Est GFR (CKD-EPI)NonAf >90 (>60 ml/min/1.73 sqM) Glucose 127 H (74-99) mg/dL Plasma Lactic Acid Rom (0.7-2.0) mmol/L Calcium 9.0 (8.4-10.2) mg/dL Magnesium 1.8 (1.6-2.3) mg/dL Total Bilirubin 0.6 (0.2-1.3) mg/dL AST 23 (14-36) U/L ALT 30 (4-34) U/L Alkaline Phosphatase 119 (38-126) U/L Troponin I (0.000-0.034) ng/mL NT-Pro-B Natriuret Pep 2890 pg/mL Total Protein 6.5 (6.3-8.2) g/dL Albumin 3.7 (3.5-5.0) g/dL Influenza Type A (PCR) (Not Detectd) Influenza Type B (PCR) (Not Detectd) RSV (PCR) (Not Detectd) SARS-CoV-2 (PCR) (Not Detectd) 06/29/23 06/29/23 06/29/23 Range/Units 13:21 13:21 13:21 WBC (3.8-10.6) k/uL RBC (3.80-5.40) m/uL Hgb (11.4-16.0) gm/dL Hct (34.0-46.0) % MCV (80.0-100.0) fL MCH (25.0-35.0) pg MCHC (31.0-37.0) g/dL RDW (11.5-15.5) % Plt Count (150-450) k/uL MPV Neutrophils % % Lymphocytes % % Monocytes % % Eosinophils % % Basophils % % Neutrophils # (1.3-7.7) k/uL Lymphocytes # (1.0-4.8) k/uL Monocytes # (0-1.0) k/uL Eosinophils # (0-0.7) k/uL Basophils # (0-0.2) k/uL Hypochromasia PT (10.0-12.5) sec INR (<1.2) APTT (22.0-30.0) sec Sodium (137-145) mmol/L Potassium (3.5-5.1) mmol/L Chloride (98-107) mmol/L Carbon Dioxide (22-30) mmol/L Anion Gap mmol/L BUN (7-17) mg/dL Creatinine (0.52-1.04) mg/dL Est GFR (CKD-EPI)AfAm (>60 ml/min/1.73 sqM) Est GFR (CKD-EPI)NonAf (>60 ml/min/1.73 sqM) Glucose (74-99) mg/dL Plasma Lactic Acid Rom 1.0 (0.7-2.0) mmol/L Calcium (8.4-10.2) mg/dL Magnesium (1.6-2.3) mg/dL Total Bilirubin (0.2-1.3) mg/dL AST (14-36) U/L ALT (4-34) U/L Alkaline Phosphatase (38-126) U/L Troponin I <0.012 (0.000-0.034) ng/mL NT-Pro-B Natriuret Pep pg/mL Total Protein (6.3-8.2) g/dL Albumin (3.5-5.0) g/dL Influenza Type A (PCR) Not Detected (Not Detectd) Influenza Type B (PCR) Not Detected (Not Detectd) RSV (PCR) Detected A (Not Detectd) SARS-CoV-2 (PCR) Not Detected (Not Detectd) Critical Care Time Critical Care Time: Yes Total Critical Care Time: 35 Disposition Clinical Impression: COPD exacerbation Disposition: ADMITTED IP TO THIS HOSP Referrals: Sugey Chester MD [Primary Care Provider] - 1-2 days Time of Disposition: 15:47
[2023-06-29 13:47] LABS: Basophils % (A) 0 %; Eosinophils # (A) 0.1 k/uL (0-0.7); Eosinophils % (A) 0 %; HCT 44.6 % (34.0-46.0); HGB 14.2 gm/dL (11.4-16.0); Hypochromasia Moderate; Lymphocytes # (A) 1.5 k/uL (1.0-4.8); Lymphocytes % (A) 9 %; MCH 28.2 pg (25.0-35.0); MCHC 31.9 g/dL (31.0-37.0); MCV 88.4 fL (80.0-100.0); Mean Platelet Volume 7.8; Monocytes # (A) 0.7 k/uL (0-1.0); Monocytes % (A) 4 %; Neutrophils # (A) 15.4 k/uL (1.3-7.7); Neutrophils % (A) 87 %; Platelet Count 317 k/uL (150-450); RBC 5.05 m/uL (3.80-5.40); RDW 14.5 % (11.5-15.5); WBC 17.7 k/uL (3.8-10.6)
[2023-06-29] MEDS: methylPREDNISolone SOD SUCCI 125 MG/2 ML VIAL IV STA (13:48)
[2023-06-29 13:53] LABS: ALT 30 U/L (4-34); AST 23 U/L (14-36); African American GFR (CKD) >90 (>60 ml/min/1.73 sqM); Albumin 3.7 g/dL (3.5-5.0); Alkaline Phosphatase 119 U/L (38-126); Blood Urea Nitrogen 30 mg/dL (7-17); Chloride 92 mmol/L (98-107); Glucose 127 mg/dL (74-99); Magnesium 1.8 mg/dL (1.6-2.3); Non-African American GFR(CKD) >90 (>60 ml/min/1.73 sqM); Potassium 4.3 mmol/L (3.5-5.1); Sodium 138 mmol/L (137-145); Total Bilirubin 0.6 mg/dL (0.2-1.3); Total Protein 6.5 g/dL (6.3-8.2)
[2023-06-29 14:01] LABS: Anion Gap 4 mmol/L; NT-Pro-B-Type Natriuretic Pept 2890 pg/mL
--- NOTE | 2023-06-29 14:05 | XR ---
EXAMINATION TYPE: XR chest 2V DATE OF EXAM: 06/29/2023 COMPARISON: 06/24/2023 HISTORY: Shortness of breath TECHNIQUE: Frontal and lateral views of the chest are obtained. FINDINGS: Scattered senescent parenchymal changes noted. Hyperinflation compatible with COPD. No evidence for infiltrate. No evidence for atelectasis. Heart size is stable. Mediastinal structures are stable and grossly unremarkable. No evidence for hilar prominence. Degenerative changes dorsal spine. IMPRESSION: 1. No evidence for acute pulmonary disease.
[2023-06-29 14:08] LABS: Prothrombin Time 10.8 sec (10.0-12.5)
[2023-06-29 14:15] LABS: Carbon Dioxide 42 mmol/L (22-30)
[2023-06-29] MEDS ORDERED: NALOXONE 0.4 MG/ML 1 ML VIAL IVP PRN (15:48)
[2023-06-29] MEDS: IPRATROPIUM-ALBUTEROL 3 ML NEB INHALATION SCH (15:56)
[2023-06-29] MEDS: cefTRIAXone IN SWFI 1,000 MG/10 ML SYRINGE IVP STA (15:59)
--- NOTE | 2023-06-29 16:57 | P.HPIM ---
History of Present Illness H&P Date: 06/29/23 57-year-old female with COPD and chronic hypoxic respiratory failure on 3 L nasal nasal cannula at home, GERD, diabetes, A-fib, and coronary artery disease as well as multiple other comorbid conditions who presented to the emergency department with shortness of breath. Recently admitted from 06/21-06/27 for COPD excerbation, A-Fib RVR and RSV. Treated with bronchodilators, IV Cardizem, SoluMedrol discharged when improved. She reports progressive shortness of breath since then. Reports a cough productive of yellow sputum. In the ED, she underwent extensive evaluation. Tachypneic RR 28, HR in the 100s, O2 saturation 80s on 4L NC. CBC WBC 17.7. Coag panel within normal limits. CMP Cl 92, bicarb 42, BUN 30, glucose 127. Troponin < 0.012. BNP 2890. RSV + EKG A-Fib with RVR CXR no acute findings. Patient is started on BiPAP and admitted for sepsis, COPD exacerbation and RSV. General: Non toxic, no distress, appears at stated age, obese Derm: Warm, dry Head: Atraumatic, normocephalic, symmetric Eyes: EOMI, no lid lag, anicteric sclera Mouth: No lip lesion, mucus membranes moist Cardiovascular: Irreg Irre, no murmur Lungs: Expiratory wheezing bilateral, no rhonchi, no rales, no accessory muscle use Abdominal: Soft, nontender to palpation, no guarding, no appreciable organomegaly Ext: No gross muscle atrophy, no edema, no contractures Neuro: no focal neuro deficits Psych: Alert and oriented Based on my assessment of this patient, this patient meets a high complexity level of care. Patient has an acute diagnosis of sepsis, COPD exacerbation and RSV that poses a threat to life or bodily function. Acute on chronic respiratory failure COPD exacerbation: DuoNeb QID scheduled and as needed for SOB/wheezing. Solumedrol 60 mg IV Q6H. Mucinex 1200 mg PO BID. Singulair 10 mg PO QD. RSV infection: Supportive treatment. SIRS: Leukocytosis, tachycardia, + RSV. Obtain BCx. Telemetry monitoring. Atrial fibrillation with RVR: Eliquis 5 mg PO BID for AC. Metoprolol 75 mg PO BID. Cardizem 60 mg PO TID. Chronic conditions: HTN, HLD, CAD, Anxiety and Depression CODE STATUS: FULL CODE. DVT Prophylaxis: Eliquis GI Prophylaxis: Protonix. Designated medical POA if patient is not able to make medical decisions for themselves: I have reviewed the following salon sales consultant notes: I have reviewed the results of the following tests: As above. I have ordered the following tests: As above. I have discussed the care of this patient with the following independent historian: I have independently interpreted the following test below: EKG. I have discussed the management of this patient with the following physician: Past Medical History Past Medical History: Atrial Fibrillation, Asthma, COPD, Hyperlipidemia, Hypertension, Myocardial Infarction ([place]), Respiratory Disorder Additional Past Medical History / Comment(s): wears oxygen 3lnc when mobile Last Myocardial Infarction Date:: 2021 History of Any Multi-Drug Resistant Organisms: None Reported Past Surgical History: Heart Catheterization With Stent, Orthopedic Surgery Additional Past Surgical History / Comment(s): metal plate right arm, oral surgery fracture jawed,hx gallstones Past Anesthesia/Blood Transfusion Reactions: No Reported Reaction Additional Past Anesthesia/Blood Transfusion Reaction / Comment(s): No blood transfusion Date of Last Stent Placement:: 2021 Past Psychological History: Anxiety, Depression Smoking Status: Current some day smoker Past Alcohol Use History: None Reported Past Drug Use History: None Reported - Past Family History Mother Family Medical History: Cancer Additional Family Medical History / Comment(s): uterine, breast, lymph nodes Medications and Allergies Home Medications Medication Instructions Recorded Confirmed Type Apixaban [Eliquis] 5 mg PO BID 10/26/22 06/29/23 History Atorvastatin [Lipitor] 40 mg PO HS 10/26/22 06/29/23 History Cetirizine HCl 10 mg PO DAILY 10/26/22 06/29/23 History FLUoxetine HCL [PROzac] 40 mg PO DAILY@1200 10/26/22 06/29/23 History Folic Acid 1 mg PO DAILY 10/26/22 06/29/23 History Gabapentin [Neurontin] 300 mg PO BID 10/26/22 06/29/23 History HYDROcodone/APAP 5-325MG [[place] 1 tab PO TID 10/26/22 06/29/23 History 5-325] Mirtazapine [Remeron] 15 mg PO HS 10/26/22 06/29/23 History Montelukast [Singulair] 10 mg PO DAILY 10/26/22 06/29/23 History Dulaglutide [Trulicity] 1.5 mg SQ SA 06/21/23 06/29/23 History Ergocalciferol [Vitamin D2 (1250 1,250 mcg PO SA 06/21/23 06/29/23 History Mcg = 86618 Iu)] Ipratropium-Albuterol Nebulize 3 ml INHALATION RT-QID 06/21/23 06/29/23 History [Duoneb 0.5 mg-3 mg/3 ml Soln] Omeprazole 20 mg PO DAILY 06/21/23 06/29/23 History lisinopriL [Zestril] 5 mg PO DAILY 06/21/23 06/29/23 History Diltiazem Oral [Cardizem*] 60 mg PO TID #90 tab 06/27/23 06/29/23 Rx Fluticasone Nasal [place] [Flonase 2 spray EA NOSTRIL DAILY ml 06/27/23 06/29/23 Rx Nasal [place]] Furosemide [Lasix] 40 mg PO DAILY #5 tablet 06/27/23 06/29/23 Rx Metoprolol Tartrate [Lopressor] 75 mg PO BID #180 tab 06/27/23 06/29/23 Rx Nystatin 100,000 Unit/ml Susp 500,000 unit PO QID 9 Days #200 ml 06/27/23 06/29/23 Rx [Mycostatin Oral Susp] guaiFENesin [Mucinex] 1,200 mg PO Q12HR tab 06/27/23 06/29/23 Rx predniSONE [Deltasone] See Taper PO DAILY@1200 06/29/23 06/29/23 History Allergies Allergy/AdvReac Type Severity Reaction Status Date / Time ibuprofen Allergy Rash/Hives Verified 06/29/23 15:12 NSAIDS (Non-Steroidal Allergy Rash/Hives Verified 06/29/23 15:12 Anti-Inflamma tetracycline Allergy Rash/Hives Verified 06/29/23 15:12 Physical Exam Vitals: Vital Signs Temp Pulse Resp BP Pulse Ox FiO2 06/29/23 16:07 118 H 20 06/29/23 15:58 114 H 22 100/84 95 06/29/23 15:56 100 15 06/29/23 14:24 30 06/29/23 14:22 98 06/29/23 14:20 91 L 30 06/29/23 14:06 102 H 24 90 L 06/29/23 13:37 89 20 06/29/23 13:21 101 H 22 06/29/23 13:19 24 06/29/23 13:18 89 L 06/29/23 13:13 98 F 103 H 28 H 113/82 92 L Intake and Output 06/29/23 06/29/23 06/29/23 06:59 14:59 22:59 Other: Weight 127.006 kg Results CBC & Chem 7: 06/29/23 13:21 06/29/23 13:21 Labs: Abnormal Lab Results - Last 24 Hours (Table) 06/29/23 06/29/23 06/29/23 Range/Units 13:21 13:21 13:21 WBC 17.7 H (3.8-10.6) k/uL Neutrophils # 15.4 H (1.3-7.7) k/uL Chloride 92 L (98-107) mmol/L Carbon Dioxide 42 H* (22-30) mmol/L BUN 30 H (7-17) mg/dL Glucose 127 H (74-99) mg/dL RSV (PCR) Detected A (Not Detectd)
[2023-06-29] MEDS: AMOXIC-POT CLAV 875-125MG 1 EACH TAB PO SCH (21:38)
[2023-06-29] MEDS: ATORVASTATIN 40 MG TAB PO SCH (21:39)
[2023-06-29] MEDS: GABAPENTIN 300 MG CAP PO SCH (21:39)
[2023-06-29] MEDS: guaiFENesin 600 MG TABLET.ER PO SCH (21:39)
[2023-06-29] MEDS: APIXABAN 5 MG TAB PO SCH (21:39)
[2023-06-29] MEDS: MIRTAZAPINE 15 MG TAB PO SCH (21:40)
[2023-06-29] MEDS: METOPROLOL TARTRATE 25 MG TAB PO SCH (21:40)
[2023-06-29] MEDS: DILTIAZEM ORAL 60 MG TAB PO SCH (21:40)
[2023-06-29] MEDS: methylPREDNISolone SOD SUCCI 125 MG/2 ML VIAL IV SCH (23:19)
[2023-06-30] MEDS: HYDROcodone/APAP 5-325MG 1 EACH TAB PO PRN (05:09)
[2023-06-30] MEDS: lisinopriL 5 MG TAB PO SCH (08:56)
[2023-06-30] MEDS: PANTOPRAZOLE 40 MG TABLET PO SCH (08:56)
[2023-06-30] MEDS: MONTELUKAST 10 MG TAB PO SCH (08:56)
[2023-06-30] MEDS: LORATADINE 10 MG TAB PO SCH (08:56)
[2023-06-30] MEDS: FUROSEMIDE 40 MG TAB PO SCH (08:56)
[2023-06-30 09:36] LABS: HCT 46.6 % (34.0-46.0); Hypochromasia Moderate; Mean Platelet Volume 8.3; Platelet Count 300 k/uL (150-450); RBC 5.18 m/uL (3.80-5.40); RDW 14.5 % (11.5-15.5); WBC 10.9 k/uL (3.8-10.6)
[2023-06-30 09:54] LABS: African American GFR (CKD) >90 (>60 ml/min/1.73 sqM); Anion Gap 7 mmol/L; Blood Urea Nitrogen 32 mg/dL (7-17); Calcium 9.2 mg/dL (8.4-10.2); Carbon Dioxide 33 mmol/L (22-30); Chloride 95 mmol/L (98-107); Glucose 256 mg/dL (74-99); Non-African American GFR(CKD) >90 (>60 ml/min/1.73 sqM); Sodium 135 mmol/L (137-145)
[2023-06-30] MEDS: FLUoxetine HCL 20 MG CAP PO SCH (12:12)
--- NOTE | 2023-06-30 12:16 | P.PN ---
Subjective Progress Note Date: 06/30/23 57-year-old female with COPD and chronic hypoxic respiratory failure on 3 L nasal nasal cannula at home, GERD, diabetes, A-fib, and coronary artery disease as well as multiple other comorbid conditions who presented to the emergency department with shortness of breath. Recently admitted from 06/21-06/27 for COPD excerbation, A-Fib RVR and RSV. Treated with bronchodilators, IV Cardizem, SoluMedrol discharged when improved. She reports progressive shortness of breath since then. Reports a cough productive of yellow sputum. In the ED, she underwent extensive evaluation. Tachypneic RR 28, HR in the 100s, O2 saturation 80s on 4L NC. CBC WBC 17.7. Coag panel within normal limits. CMP Cl 92, bicarb 42, BUN 30, glucose 127. Troponin < 0.012. BNP 2890. RSV + EKG A-Fib with RVR CXR no acute findings. Patient is started on BiPAP and admitted for sepsis, COPD exacerbation and RSV. 2/3 Patient was seen and examined. Currently on BiPAP. Remains tachycardic with HR in the 120s, 91% on 4L NC. CBC WBC 10.9 Hct 46.6. BMP Na 135, Cl 95, bicarb 33, BUN 32, Cr 0.46, glu 256. General: Non toxic, no distress, appears at stated age, obese Derm: Warm, dry Head: Atraumatic, normocephalic, symmetric Eyes: EOMI, no lid lag, anicteric sclera Mouth: No lip lesion, mucus membranes moist Cardiovascular: Irreg Irre, no murmur Lungs: Expiratory wheezing bilateral, no rhonchi, no rales, no accessory muscle use Abdominal: Soft, nontender to palpation, no guarding, no appreciable organomegaly Ext: No gross muscle atrophy, no edema, no contractures Neuro: no focal neuro deficits Psych: Alert and oriented Based on my assessment of this patient, this patient meets a high complexity level of care. Patient has an acute diagnosis of sepsis, COPD exacerbation and RSV that poses a threat to life or bodily function. Acute on chronic hypoxic hypercapnic respiratory failure COPD exacerbation: DuoNeb QID scheduled and as needed for SOB/wheezing. Solumedrol 60 mg IV Q6H. Mucinex 1200 mg PO BID. Singulair 10 mg PO QD. Pulmonary consult. RSV infection: Supportive treatment as above. SIRS: Leukocytosis, tachycardia, + RSV. Obtain BCx. Telemetry monitoring. Atrial fibrillation with RVR: Eliquis 5 mg PO BID for AC. Metoprolol 75 mg PO BID. Cardizem 60 mg PO TID. Chronic conditions: HTN, HLD, CAD, Anxiety and Depression CODE STATUS: FULL CODE. DVT Prophylaxis: Eliquis GI Prophylaxis: Protonix. Designated medical POA if patient is not able to make medical decisions for themselves: I have reviewed the following case consultant notes: I have reviewed the results of the following tests: CBC, BMP. I have ordered the following tests: I have discussed the care of this patient with the following independent histo leslie: Discussed with RN. I have independently interpreted the following test below: I have discussed the management of this patient with the following physician: Objective - Vital Signs Vital signs: Vital Signs Temp 97.8 F 06/30/23 08:00 Pulse 120 H 06/30/23 08:09 Resp 14 06/30/23 08:00 BP 134/99 06/30/23 08:00 Pulse Ox 91 L 06/30/23 08:00 FiO2 30 06/29/23 19:41 Intake & Output 06/29/23 06/30/23 06/30/23 18:59 06:59 18:59 Weight 127.006 kg - Labs CBC & Chem 7: 06/30/23 08:52 06/30/23 08:52 Labs: Abnormal Lab Results - Last 24 Hours (Table) 06/29/23 06/29/23 06/29/23 Range/Units 13:21 13:21 13:21 WBC 17.7 H (3.8-10.6) k/uL Neutrophils # 15.4 H (1.3-7.7) k/uL Chloride 92 L (98-107) mmol/L Carbon Dioxide 42 H* (22-30) mmol/L BUN 30 H (7-17) mg/dL Glucose 127 H (74-99) mg/dL RSV (PCR) Detected A (Not Detectd)
[2023-06-30 16:43] LABS: Glucose,Whole Blood 157 mg/dL (70-110)
[2023-06-30] MEDS: FLUCONAZOLE 150 MG TAB PO STA (17:08)
[2023-06-30 20:15] LABS: Glucose,Whole Blood 245 mg/dL (70-110)
[2023-06-30] MEDS ORDERED: DEXTROSE 50% SYRINGE 50 ML IVP PRN ×2 (20:29)
[2023-06-30] MEDS: INSULIN ASPART (NovoLOG) 100 UNIT/ML VIAL SQ SCH (20:51)
[2023-07-01] MEDS: IPRATROPIUM-ALBUTEROL 3 ML NEB INHALATION PRN (04:45)
[2023-07-01 06:05] LABS: Glucose,Whole Blood 201 mg/dL (70-110)
[2023-07-01 09:54] LABS: HCT 43.5 % (34.0-46.0); HGB 13.5 gm/dL (11.4-16.0); Hypochromasia Moderate; MCH 27.7 pg (25.0-35.0); MCV 89.3 fL (80.0-100.0); Mean Platelet Volume 7.9; Platelet Count 287 k/uL (150-450); RBC 4.87 m/uL (3.80-5.40); RDW 14.7 % (11.5-15.5); WBC 11.7 k/uL (3.8-10.6)
[2023-07-01 10:05] LABS: African American GFR (CKD) >90 (>60 ml/min/1.73 sqM); Anion Gap 5 mmol/L; Blood Urea Nitrogen 26 mg/dL (7-17); Calcium 8.6 mg/dL (8.4-10.2); Carbon Dioxide 35 mmol/L (22-30); Chloride 94 mmol/L (98-107); Glucose 229 mg/dL (74-99); Non-African American GFR(CKD) >90 (>60 ml/min/1.73 sqM); Potassium 4.1 mmol/L (3.5-5.1); Sodium 134 mmol/L (137-145)
--- NOTE | 2023-07-01 10:34 | P.PN ---
Subjective Progress Note Date: 07/01/23 57-year-old female with COPD and chronic hypoxic respiratory failure on 3 L nasal nasal cannula at home, GERD, diabetes, A-fib, and coronary artery disease as well as multiple other comorbid conditions who presented to the emergency department with shortness of breath. Recently admitted from 06/21-06/27 for COPD excerbation, A-Fib RVR and RSV. Treated with bronchodilators, IV Cardizem, SoluMedrol discharged when improved. She reports progressive shortness of breath since then. Reports a cough productive of yellow sputum. In the ED, she underwent extensive evaluation. Tachypneic RR 28, HR in the 100s, O2 saturation 80s on 4L NC. CBC WBC 17.7. Coag panel within normal limits. CMP Cl 92, bicarb 42, BUN 30, glucose 127. Troponin < 0.012. BNP 2890. RSV + EKG A-Fib with RVR CXR no acute findings. Patient is started on BiPAP and admitted for sepsis, COPD exacerbation and RSV. 06/30 Patient was seen and examined. Currently on BiPAP. Remains tachycardic with HR in the 120s, 91% on 4L NC. CBC WBC 10.9 Hct 46.6. BMP Na 135, Cl 95, bicarb 33, BUN 32, Cr 0.46, glu 256. 07/01 Patient was seen and examined. Reports lower extremity swelling. We will switch her PO Lasix to 40 mg IV BID. Currently on 4L NC. CBC WBC 11.7. BMP Na 134, Cl 94, bicarb 35, BUN 26, glu 229. General: Non toxic, no distress, appears at stated age, obese Derm: Warm, dry Head: Atraumatic, normocephalic, symmetric Eyes: EOMI, no lid lag, anicteric sclera Mouth: No lip lesion, mucus membranes moist Cardiovascular: Irreg Irre, no murmur Lungs: Expiratory wheezing bilateral, no rhonchi, no rales, no accessory muscle use Abdominal: Soft, nontender to palpation, no guarding, no appreciable organomegaly Ext: No gross muscle atrophy, no edema, no contractures Neuro: no focal neuro deficits Psych: Alert and oriented Based on my assessment of this patient, this patient meets a high complexity level of care. Patient has an acute diagnosis of sepsis, COPD exacerbation and RSV that poses a threat to life or bodily function. Acute on chronic hypoxic hypercapnic respiratory failure COPD exacerbation: DuoNeb QID scheduled and as needed for SOB/wheezing. Solumedrol 60 mg IV Q6H. Mucinex 1200 mg PO BID. Singulair 10 mg PO QD. Pu lmonary consult. RSV infection: Supportive treatment as above. SIRS: Leukocytosis, tachycardia, + RSV. Obtain BCx. Telemetry monitoring. Diabetes mellitus with hyperglycemia: Steroid induced. A1c 6.1. Start low dose ISS. Accuchecks ACHS. Hypoglycemic precautions. Lower extremity swelling: Recent Echo EF 50-55%. Lasix 40 mg IV BID. Lower extremity elevation. Likely worsened with steroid use. Atrial fibrillation with RVR: Eliquis 5 mg PO BID for AC. Metoprolol 75 mg PO BID. Cardizem 60 mg PO TID. Chronic conditions: HTN, HLD, CAD, Anxiety and Depression CODE STATUS: FULL CODE. DVT Prophylaxis: Eliquis GI Prophylaxis: Protonix. Designated medical POA if patient is not able to make medical decisions for themselves: I have reviewed the following clinical program consultant notes: I have reviewed the results of the following tests: CBC, BMP. I have ordered the following tests: BMP. I have discussed the care of this patient with the following independent historian: I have independently interpreted the following test below: I have discussed the management of this patient with the following physician: Objective - Vital Signs Vital signs: Vital Signs Temp 98.1 F 07/01/23 03:31 Pulse 100 07/01/23 09:42 Resp 18 07/01/23 03:31 BP 136/91 07/01/23 03:31 Pulse Ox 96 07/01/23 09:29 FiO2 30 07/01/23 04:44 Intake & Output 06/30/23 07/01/23 07/01/23 18:59 06:59 18:59 Intake Total 780 240 118 Balance 780 240 118 Weight 127.006 kg Intake: Oral 780 240 118 Other: Voiding Method Bedside Commode Bedside Commode # Voids 2 - Labs CBC & Chem 7: 07/01/23 08:59 07/01/23 08:59 Labs: Abnormal Lab Results - Last 24 Hours (Table) 06/30/23 06/30/23 07/01/23 Range/Units 16:39 20:13 06:03 WBC (3.8-10.6) k/uL Sodium (137-145) mmol/L Chloride (98-107) mmol/L Carbon Dioxide (22-30) mmol/L BUN (7-17) mg/dL Glucose (74-99) mg/dL POC Glucose (mg/dL) 157 H 245 H 201 H (70-110) mg/dL 07/01/23 07/01/23 Range/Units 08:59 08:59 WBC 11.7 H (3.8-10.6) k/uL Sodium 134 L (137-145) mmol/L Chloride 94 L (98-107) mmol/L Carbon Dioxide 35 H (22-30) mmol/L BUN 26 H (7-17) mg/dL Glucose 229 H (74-99) mg/dL POC Glucose (mg/dL) (70-110) mg/dL Microbiology - Last 24 Hours (Table) 06/29/23 13:21 Blood Culture - Preliminary Blood
[2023-07-01 12:03] LABS: Glucose,Whole Blood 162 mg/dL (70-110)
--- NOTE | 2023-07-01 12:08 | P.CNPUL ---
History of Present Illness Consult date: 07/01/23 Requesting physician: Prakash Gomez Reason for consult: dyspnea, cough, COPD, hypoxemia Chief complaint: Shortness of breath, COPD exacerbation. History of present illness: Pulmonary consult dated July 01, 2023. 57-year-old female seen in the emergency department, on June 29, 2023. The patient came into the emergency room complaining of shortness of breath. The patient was in the hospital between June 21 and June 27 with a COPD exacerbation. The patient has a history of obesity, atrial fibrillation, myocardial infarction, anxiety, and depression. The patient was discharged on the , and at that time, was feeling well. The patient tested positive for RSV on this admission. She is seen today in room 353. She is sitting at the edge of the bed. She is currently on 4 L. She is not receiving any IV fluids. Her procalcitonin level was normal. She did use the BiPAP at nighttime, at 12/6 and 30%. The patient complains of cough, chest congestion, shortness of breath, and difficulty coughing up phlegm. No fever or chills. No chest pain or chest discomfort. White count 11.7, hemoglobin 13.5, hematocrit 43.5, platelet count 287,000. Sodium 134, potassium 4.1, chloride 94, CO2 35, BUN 26, and creatinine 0.52. Troponin was less than 0.012. N-terminal proBNP was 2890. Procalcitonin level was 0.02. Blood cultures are currently pending. Chest x-ray was interpreted as being normal. Review of Systems REVIEW OF SYSTEMS: CONSTITUTIONAL: [Negative.] NEUROLOGIC: [ Negative.] HEENT: [ Negative.] CARDIAC: [Negative.] PULMONARY: Shortness of breath, cough, wheezing, chest tightness, chest congestion, and occasional phlegm production. GI: [Negative.] : [Negative.] RHEUMATOLOGIC: [ Negative.] IMMUNOLOGIC: [ Negative.] ENDOCRINE: [Negative. ] DERMATOLOGIC: [Negative.] Past Medical History Past Medical History: Atrial Fibrillation, Asthma, COPD, Hyperlipidemia, Hypertension, Myocardial Infarction (HI), Respiratory Disorder Additional Past Medical History / Comment(s): wears oxygen 3lnc when mobile Last Myocardial Infarction Date:: 2021 History of Any Multi-Drug Resistant Organisms: None Reported Past Surgical History: Heart Catheterization With Stent, Orthopedic Surgery Additional Past Surgical History / Comment(s): metal plate right arm, oral surgery fracture jawed,hx gallstones Past Anesthesia/Blood Transfusion Reactions: No Reported Reaction Additional Past Anesthesia/Blood Transfusion Reaction / Comment(s): No blood transfusion Date of Last Stent Placement:: 2021 Past Psychological History: Anxiety, Depression Smoking Status: Current some day smoker Past Alcohol Use History: None Reported Past Drug Use History: None Reported - Past Family History Mother Family Medical History: Cancer Additional Family Medical History / Comment(s): uterine, breast, lymph nodes Medications and Allergies Home Medications Medication Instructions Recorded Confirmed Type Apixaban [Eliquis] 5 mg PO BID 10/26/22 06/29/23 History Atorvastatin [Lipitor] 40 mg PO HS 10/26/22 06/29/23 History Cetirizine HCl 10 mg PO DAILY 10/26/22 06/29/23 History FLUoxetine HCL [PROzac] 40 mg PO DAILY@1200 10/26/22 06/29/23 History Folic Acid 1 mg PO DAILY 10/26/22 06/29/23 History Gabapentin [Neurontin] 300 mg PO BID 10/26/22 06/29/23 History HYDROcodone/APAP 5-325MG [[place] 1 tab PO TID 10/26/22 06/29/23 History 5-325] Mirtazapine [Remeron] 15 mg PO HS 10/26/22 06/29/23 History Montelukast [Singulair] 10 mg PO DAILY 10/26/22 06/29/23 History Dulaglutide [Trulicity] 1.5 mg SQ SA 06/21/23 06/29/23 History Ergocalciferol [Vitamin D2 (1250 1,250 mcg PO SA 06/21/23 06/29/23 History Mcg = 52463 Iu)] Ipratropium-Albuterol Nebulize 3 ml INHALATION RT-QID 06/21/23 06/29/23 History [Duoneb 0.5 mg-3 mg/3 ml Soln] Omeprazole 20 mg PO DAILY 06/21/23 06/29/23 History lisinopriL [Zestril] 5 mg PO DAILY 06/21/23 06/29/23 History Diltiazem Oral [Cardizem*] 60 mg PO TID #90 tab 06/27/23 06/29/23 Rx Fluticasone Nasal [place] [Flonase 2 spray EA NOSTRIL DAILY ml 06/27/23 06/29/23 Rx Nasal [place]] Furosemide [Lasix] 40 mg PO DAILY #5 tablet 06/27/23 06/29/23 Rx Metoprolol Tartrate [Lopressor] 75 mg PO BID #180 tab 06/27/23 06/29/23 Rx Nystatin 100,000 Unit/ml Susp 500,000 unit PO QID 9 Days #200 ml 06/27/23 06/29/23 Rx [Mycostatin Oral Susp] guaiFENesin [Mucinex] 1,200 mg PO Q12HR tab 06/27/23 06/29/23 Rx predniSONE [Deltasone] See Taper PO DAILY@1200 06/29/23 06/29/23 History Allergies Allergy/AdvReac Type Severity Reaction Status Date / Time ibuprofen Allergy Rash/Hives Verified 06/29/23 15:12 NSAIDS (Non-Steroidal Allergy Rash/Hives Verified 06/29/23 15:12 Anti-Inflamma tetracycline Allergy Rash/Hives Verified 06/29/23 15:12 Physical Exam Osteopathic Statement: *. No significant issues noted on an osteopathic structural exam other than those noted in the History and Physical/Consult. Vitals: Vital Signs Temp Pulse Pulse Resp BP Pulse Ox FiO2 07/01/23 09:42 100 07/01/23 09:29 96 96 07/01/23 04:57 106 H 07/01/23 04:45 104 H 07/01/23 04:44 30 07/01/23 03:31 98.1 F 86 18 136/91 96 07/01/23 01:24 30 06/30/23 23:49 98.3 F 100 22 112/77 06/30/23 21:10 104 H 06/30/23 21:00 98.8 F 100 22 126/80 94 L 06/30/23 20:57 104 H 06/30/23 16:40 98.1 F 104 H 16 128/80 94 L 06/30/23 16:29 100 06/30/23 16:13 91 06/30/23 14:00 105 H 16 Intake and Output 06/30/23 07/01/23 07/01/23 22:59 06:59 14:59 Intake Total 780 118 Balance 780 118 Intake: Oral 780 118 Other: Voiding Method Bedside Commode Bedside Commode # Voids 2 No acute distress, oriented x 3. Currently on 4 L of oxygen. Her cough is wet and congested sounding. No use of accessory muscles, or conversational dyspnea. HEENT examination is grossly unremarkable. Mucous membranes are moist. No oral lesions. Neck supple. Full range of motion. No adenopathy thyromegaly or neck vein distention. Cardiovascular examination reveals regular rhythm rate. S1-S2 normal. No S3 or S4. No discernible murmur noted. Heart rate 100 bpm. Heart sounds are distant. Lungs reveal inspiratory and expiratory wheezes and rhonchi. No crackles. Breath sounds equal bilaterally. Her cough is wet and congested sounding. Her 4 L saturation is 96%. Abdomen soft bowel sounds are heard. No masses or tenderness. Extremities are intact. No cyanosis clubbing or edema. Skin is without rash or lesion. Neurologic examination is brief but nonfocal. Results - Laboratory Findings CBC and BMP: 07/01/23 08:59 07/01/23 08:59 PT/INR, D-dimer PT 10.8 sec (10.0-12.5) 06/29/23 13:21 INR 1.0 (<1.2) 06/29/23 13:21 Abnormal lab findings: Abnormal Labs 06/29/23 06/29/23 06/29/23 13:21 13:21 13:21 WBC 17.7 H Hct MCHC Neutrophils # 15.4 H Sodium Chloride 92 L Carbon Dioxide 42 H* BUN 30 H Creatinine Glucose 127 H POC Glucose (mg/dL) RSV (PCR) Detected A 06/30/23 06/30/23 06/30/23 08:52 08:52 16:39 WBC 10.9 H Hct 46.6 H MCHC 30.0 L Neutrophils # Sodium 135 L Chloride 95 L Carbon Dioxide 33 H BUN 32 H Creatinine 0.46 L Glucose 256 H POC Glucose (mg/dL) 157 H RSV (PCR) 06/30/23 07/01/23 07/01/23 20:13 06:03 08:59 WBC 11.7 H Hct MCHC Neutrophils # Sodium Chloride Carbon Dioxide BUN Creatinine Glucose POC Glucose (mg/dL) 245 H 201 H RSV (PCR) 07/01/23 08:59 WBC Hct MCHC Neutrophils # Sodium 134 L Chloride 94 L Carbon Dioxide 35 H BUN 26 H Creatinine Glucose 229 H POC Glucose (mg/dL) RSV (PCR) - Diagnostic Findings Chest x-ray: image reviewed Assessment and Plan Assessment: Acute hypoxemic respiratory failure secondary to COPD exacerbation, complicated by RSV tracheobronchitis. Prior history of significant tobacco use. Recent admission to the hospital, between June 21 and June 27. History of atrial fibrillation. History of hyperlipidemia. History of hypertension. History of coronary artery disease, with previous PCI/stent placement. History of myocardial infarction. She of anxiety/depression. Obesity. Plan: Plan dated July 01, 2023. The patient is placed on usual medications. This includes budesonide 1 mg, mix with formoterol 20 mcg, twice a day, albuterol sulfate and ipratropium breathing treatments, 4 times daily and as needed, and Solu-Medrol, 60 mg every 6 hours. Labs, x-rays, and medications are all reviewed. The patient's overall prognosis remains guarded. The chest x-ray did not show anything acute. Procalcitonin level was normal. We will continue to follow make recommendations along the way. Time with Patient: Greater than 30
[2023-07-01] MEDS: FUROSEMIDE 10 MG/ML 4 ML VIAL IV SCH (12:27)
[2023-07-01 16:46] LABS: Glucose,Whole Blood 177 mg/dL (70-110)
[2023-07-01] MEDS: BUDESONIDE 1 MG/2 ML NEBU INHALATION SCH (20:02)
[2023-07-01] MEDS: FORMOTEROL FUMARATE 20 MCG/2 ML NEBU INHALATION SCH (20:02)
[2023-07-01 20:21] LABS: Glucose,Whole Blood 271 mg/dL (70-110)
[2023-07-02 06:18] LABS: Glucose,Whole Blood 168 mg/dL (70-110)
[2023-07-02 08:18] LABS: African American GFR (CKD) >90 (>60 ml/min/1.73 sqM); Anion Gap 4 mmol/L; Blood Urea Nitrogen 28 mg/dL (7-17); Calcium 8.7 mg/dL (8.4-10.2); Carbon Dioxide 40 mmol/L (22-30); Chloride 90 mmol/L (98-107); Glucose 211 mg/dL (74-99); Non-African American GFR(CKD) >90 (>60 ml/min/1.73 sqM); Potassium 4.3 mmol/L (3.5-5.1); Sodium 134 mmol/L (137-145)
--- NOTE | 2023-07-02 09:53 | P.PN ---
Subjective Progress Note Date: 07/02/23 57-year-old female with COPD and chronic hypoxic respiratory failure on 3 L nasal nasal cannula at home, GERD, diabetes, A-fib, and coronary artery disease as well as multiple other comorbid conditions who presented to the emergency department with shortness of breath. Recently admitted from 06/21-06/27 for COPD excerbation, A-Fib RVR and RSV. Treated with bronchodilators, IV Cardizem, SoluMedrol discharged when improved. She reports progressive shortness of breath since then. Reports a cough productive of yellow sputum. In the ED, she underwent extensive evaluation. Tachypneic RR 28, HR in the 100s, O2 saturation 80s on 4L NC. CBC WBC 17.7. Coag panel within normal limits. CMP Cl 92, bicarb 42, BUN 30, glucose 127. Troponin < 0.012. BNP 2890. RSV + EKG A-Fib with RVR CXR no acute findings. Patient is started on BiPAP and admitted for sepsis, COPD exacerbation and RSV. Started on bronchodilators and SoluMedrol, Pulmonary following. Lasix 40 mg IV BID added for lower extremity swelling. She has been slow to progress in terms of her breathing. 07/02 Patient was seen and examined. Reports lower extremity swelling. Slow improvement in her breathing. Reports that BiPAP helps. Maintained on Lasix to 40 mg IV BID. Currently on 4L NC. BCx is negative at 48H. POC glucose 162-271 over the past 24H. BMP Na 134, Cl 90, bicarb 40, BUN 28, glu 211. General: Non toxic, no distress, appears at stated age, obese Derm: Warm, dry Head: Atraumatic, normocephalic, symmetric Eyes: EOMI, no lid lag, anicteric sclera Mouth: No lip lesion, mucus membranes moist Cardiovascular: Irreg Irre, no murmur Lungs: Expiratory wheezing bilateral, no rhonchi, no rales, no accessory muscle use Ext: No gross muscle atrophy, 2-3+ pitting edema, no contractures Neuro: no focal neuro deficits Psych: Alert and oriented Based on my assessment of this patient, this patient meets a high complexity level of care. Patient has an acute diagnosis of sepsis, COPD exacerbation and RSV that poses a threat to life or bodily function. Acute on chronic hypoxic hypercapnic respiratory failure COPD exacerbation: DuoNeb QID scheduled and as needed for SOB/wheezing. Solumedrol 60 mg IV Q6H. Mucinex 1200 mg PO BID. Singulair 10 mg PO QD. Pulmonary on board. RSV tracheobronchitis: Supportive treatment as above. SIRS: Leukocytosis, tachycardia, + RSV. Follow BCx. Telemetry monitoring. Diabetes mellitus with hyperglycemia: Steroid induced. A1c 6.1. Continue low dose ISS. Accuchecks ACHS. Hypoglycemic precautions. Lower extremity swelling: Recent Echo EF 50-55%. Lasix 40 mg IV BID. Lower extremity elevation. Sadi hose thigh high. Likely worsened with steroid use. Atrial fibrillation with RVR: Eliquis 5 mg PO BID for AC. Metoprolol 75 mg PO BID. Cardizem 60 mg PO TID. Chronic conditions: HTN, HLD, CAD, Anxiety and Depression CODE STATUS: FULL CODE. DVT Prophylaxis: Eliquis GI Prophylaxis: Protonix Designated medical POA if patient is not able to make medical decisions for themselves: I have reviewed the following risk consultant notes: Pulmonology note. I have reviewed the results of the following tests: BMP. BCx. POC glucose. I have ordered the following tests: Follow daily BMP for monitoring of renal function while on Lasix IV. I have discussed the care of this patient with the following independent his stacey: I have independently interpreted the following test below: I have discussed the management of this patient with the following physician: Objective - Vital Signs Vital signs: Vital Signs Temp 98.7 F 07/02/23 03:46 Pulse 68 07/02/23 03:46 Resp 20 07/02/23 03:46 BP 132/89 07/02/23 03:46 Pulse Ox 93 L 07/02/23 03:46 FiO2 30 07/01/23 20:02 Intake & Output 07/01/23 07/01/23 07/02/23 06:59 18:59 06:59 Intake Total 240 1538 Balance 240 1538 Weight 129.5 kg Intake: Oral 240 1538 Other: Voiding Method Bedside Commode Toilet Toilet - Labs CBC & Chem 7: 07/01/23 08:59 07/02/23 06:48 Labs: Abnormal Lab Results - Last 24 Hours (Table) 07/01/23 07/01/23 07/01/23 Range/Units 08:59 08:59 08:59 WBC 11.7 H (3.8-10.6) k/uL Sodium 134 L (137-145) mmol/L Chloride 94 L (98-107) mmol/L Carbon Dioxide 35 H (22-30) mmol/L BUN 26 H (7-17) mg/dL Glucose 229 H (74-99) mg/dL POC Glucose (mg/dL) (70-110) mg/dL Hemoglobin A1c 6.7 H (<=6.0) % 07/01/23 07/01/23 07/01/23 Range/Units 12:01 16:44 20:19 WBC (3.8-10.6) k/uL Sodium (137-145) mmol/L Chloride (98-107) mmol/L Carbon Dioxide (22-30) mmol/L BUN (7-17) mg/dL Glucose (74-99) mg/dL POC Glucose (mg/dL) 162 H 177 H 271 H (70-110) mg/dL Hemoglobin A1c (<=6.0) % 07/02/23 Range/Units 06:16 WBC (3.8-10.6) k/uL Sodium (137-145) mmol/L Chloride (98-107) mmol/L Carbon Dioxide (22-30) mmol/L BUN (7-17) mg/dL Glucose (74-99) mg/dL POC Glucose (mg/dL) 168 H (70-110) mg/dL Hemoglobin A1c (<=6.0) % Microbiology - Last 24 Hours (Table) 06/29/23 13:21 Blood Culture - Preliminary Blood
[2023-07-02 11:49] LABS: Glucose,Whole Blood 220 mg/dL (70-110)
--- NOTE | 2023-07-02 13:39 | P.PN ---
Subjective Progress Note Date: 07/02/23 This is a 57-year-old female patient hospitalized for an acute COPD exacerbation shortness of breath. The patient was in the hospital between 06/21/2023 and 06/27/2023 for the same. The patient is morbidly obese. The patient also has chronic A-fib, coronary disease with previous [place], chronic anxiety and depression. The patient was supported with a BiPAP and the patient felt much better. In fact she reported this is the best night that she has slept able to take a deep breath while being on a BiPAP that was given to her overnight regarding her COPD exacerbation. Obviously, she has features of obstructive sleep apnea that needs to be worked up and on an outpatient basis. She was taken off the BiPAP and currently she is on oxygen 4 L/min nasal cannula. She remains on DuoNeb updrafts. She remains on IV Solu-Medrol 60 mg every 6 hours. She is also on Lasix 40 mg every 12 hours. Feeling better. She is less short of breath. No signs of any CO2 narcosis. BUN is at 28 with a creatinine of 0.5 and a sodium level of 143 with a potassium level of 4.3. Note that the patient tested positive for RSV and history of exacerbations attributed to an RSV infection which exacerbated her COPD. Objective - Vital Signs Vital signs: Vital Signs Temp 98.5 F 07/02/23 08:00 Pulse 116 H 07/02/23 08:12 Resp 22 07/02/23 08:00 BP 131/84 07/02/23 08:00 Pulse Ox 94 L 07/02/23 08:00 FiO2 30 07/01/23 20:02 Intake & Output 07/01/23 07/02/23 07/02/23 18:59 06:59 18:59 Intake Total 1538 Balance 1538 Weight 129.5 kg Intake: Oral 1538 Other: Voiding Method Toilet Toilet - Exam No acute distress, oriented x 3. Currently on 4 L of oxygen. Her cough is wet and congested sounding. No use of accessory muscles, or conversational dyspnea. HEENT examination is grossly unremarkable. Mucous membranes are moist. No oral lesions. Neck supple. Full range of motion. No adenopathy thyromegaly or neck vein distention. Cardiovascular examination reveals regular rhythm rate. S1-S2 normal. No S3 or S4. No discernible murmur noted. H Heart sounds are distant. Lungs reveal inspiratory and expiratory wheezes and rhonchi. No crackles. Breath sounds equal bilaterally. Her cough is wet and congested sounding. Abdomen soft bowel sounds are heard. No masses or tenderness. Extremities are intact. No cyanosis clubbing or edema. Skin is without rash or lesion. Neurologic examination is brief but nonfocal. - Labs CBC & Chem 7: 07/01/23 08:59 07/02/23 06:48 Labs: Abnormal Lab Results - Last 24 Hours (Table) 07/01/23 07/01/23 07/01/23 Range/Units 08:59 08:59 08:59 WBC 11.7 H (3.8-10.6) k/uL Sodium 134 L (137-145) mmol/L Chloride 94 L (98-107) mmol/L Carbon Dioxide 35 H (22-30) mmol/L BUN 26 H (7-17) mg/dL Glucose 229 H (74-99) mg/dL POC Glucose (mg/dL) (70-110) mg/dL Hemoglobin A1c 6.7 H (<=6.0) % 07/01/23 07/01/23 07/01/23 Range/Units 12:01 16:44 20:19 WBC (3.8-10.6) k/uL Sodium (137-145) mmol/L Chloride (98-107) mmol/L Carbon Dioxide (22-30) mmol/L BUN (7-17) mg/dL Glucose (74-99) mg/dL POC Glucose (mg/dL) 162 H 177 H 271 H (70-110) mg/dL Hemoglobin A1c (<=6.0) % 07/02/23 07/02/23 Range/Units 06:16 06:48 WBC (3.8-10.6) k/uL Sodium 134 L (137-145) mmol/L Chloride 90 L (98-107) mmol/L Carbon Dioxide 40 H (22-30) mmol/L BUN 28 H (7-17) mg/dL Glucose 211 H (74-99) mg/dL POC Glucose (mg/dL) 168 H (70-110) mg/dL Hemoglobin A1c (<=6.0) % Microbiology - Last 24 Hours (Table) 06/29/23 13:21 Blood Culture - Preliminary Blood Assessment and Plan Plan: Acute hypoxemic respiratory failure secondary to COPD exacerbation, complicated by RSV tracheobronchitis. Clinically improving and the patient was taken off of BiPAP and currently on 4 L of oxygen by nasal cannula Childhood asthma and the patient reports that she was intubated in the past on multiple occasions as a child in [facility]. Body mass index of 50.6, likely underlying obstructive sleep apnea related to obesity. The patient felt significantly improved while being on a BiPAP yesterday at a pressure of 12/6 cm of water with an FiO2 of 30% and currently she is off the BiPAP. However, she reports that her night was excellent and this is the first time she is able to take a deep breath. Chronic hypoxic respiratory failure due to COPD and the patient is utilizing oxygen between 2 and 3 L nasal cannula Prior history of significant tobacco use. Recent admission to the hospital, between June 21 and June 27. History of atrial fibrillation. Rate is controlled and the patient is on long- term anticoagulation with Eliquis. History of hyperlipidemia. History of hypertension. History of coronary artery disease, with previous PCI/stent placement. History of myocardial infarction. Chronic anxiety/depression. Obesity. Patient has a body mass index of 50.6 Plan: Clinically improving and the patient will be kept on the same treatment No need to make any adjustments on her bronchodilators or steroids Would encourage her to use the BiPAP on and off during the day especially at nighttime Patient has obvious features of obstructive sleep apnea and this is to be worked up on outpatient basis regarding the possibility of her having AUTUMN. Meanwhile she will be kept on the BiPAP. During her hospital stay Monitor electrolytes patient that the patient is taking Lasix Serum bicarb is at 40 Will continue to follow. Clinically improving.
[2023-07-02 16:17] LABS: Glucose,Whole Blood 211 mg/dL (70-110)
[2023-07-02 19:49] LABS: Glucose,Whole Blood 240 mg/dL (70-110)
[2023-07-03 06:04] LABS: Glucose,Whole Blood 267 mg/dL (70-110)
--- NOTE | 2023-07-03 07:58 | P.PN ---
Subjective Progress Note Date: 07/03/23 Patient is a 57-year-old female with COPD, chronic hypoxic respiratory failure on 3 to 4 L nasal cannula at home, GERD, diabetes, A-fib, and coronary artery disease who presented to the emergency department with complaints of shortness of breath. She was recently hospitalized here from 06/21 through 06/27 for COPD exacerbation, RSV URI, and A-fib with RVR. On arrival to the ER here she underwent extensive evaluation. She was found to be in atrial fibrillation with rapid ventricular response, BNP mildly elevated at 2890, white blood cell count elevated at 17.7. Patient was admitted for COPD, SIRS, and RSV. She was started on BiPAP. Pulmonary was consulted. Procalcitonin came back at 0.02 and antibiotics were discontinued. He was continued on bronchodilators and steroids. She continued to use BiPAP with sleeping and naps. Patient seen and examined at bedside. She is feeling much better. She is able to cough up copious amounts of secretions now. Her swelling is much improved. She has no other complaints currently. Vital signs reviewed General: Nontoxic, no distress, appears at stated age Cardiovascular: S1S2 reg, no murmur Lungs: Decreased breath sounds bilateral, no rhonchi, no rales, no accessory muscle use Abdominal: Soft, nontender to palpation, no guarding Ext: No gross muscle atrophy, 2+ lower extremity edema, no contractures Neuro: CN II-XI grossly intact, no focal neuro deficits Psych: Alert, oriented, appropriate affect Assessment/Plan: Acute on chronic hypoxic respiratory failure on 3 L at home Acute exacerbation of COPD RSV tracheobronchitis Suspected obstructive sleep apnea -Continue with DuoNeb 4 times daily and every 2 hours as needed, formoterol 20 mcg twice daily, budesonide 1 mg inhalation twice daily -Claritin 10 mg daily, Singulair 10 mg daily, guaifenesin 1200 mg oral twice daily -Solu-Medrol 60 mg IV every 6 hours -Case discussed with Dr. Batista: Patient would likely benefit from treatment of sleep apnea on an urgent basis. He will work on arranging outpatient BiPAP. Diabetes mellitus type 2, insulin requiring -Trulicity on hold -A1c 6.7 -Sliding scale insulin -Start Levemir 10 units daily Acute exacerbation of diastolic congestive heart failure with ejection fraction 50 to 55% Atrial fibrillation with rapid ventricular response, now rate controlled Hypertension Dyslipidemia Coronary artery disease -Eliquis 5 mg p.o. twice daily -Lipitor 40 mg daily -Cardizem 60 mg oral 3 times daily, metoprolol 75 mg p.o. twice daily -Lisinopril 5 mg daily -Lasix 40 mg IV every 12 hours History obesity with BMI 50.5 SIRS, resolved and secondary to COPD exacerbation Imaging: None new Data Review: Labs reviewed from today include CBC, ABG, basic metabolic profile, and magnesium which are remarkable for white blood cell count 17.6, sodium 133, BUN 27, and magnesium of 1.7. DVT prophylaxis: Eliquis Anticipated discharge date: in 24-[address]: home health This dictation was prepared using [employer] voice recognition software. Though every attempt is made to correct errors during dictation some may still exist. Objective - Vital Signs Vital signs: Vital Signs Temp 98.6 F 07/03/23 04:00 Pulse 116 H 07/03/23 07:52 Resp 20 07/03/23 04:00 BP 137/85 07/03/23 04:00 Pulse Ox 92 L 07/03/23 04:00 FiO2 30 07/03/23 00:05 Intake & Output 07/02/23 07/03/23 07/03/23 18:59 06:59 18:59 Intake Total 236 Output Total 250 Balance 236 -250 Weight 129.4 kg Intake: Oral 236 Output: Urine 250 Other: Voiding Method Toilet # Voids 3 - Labs CBC & Chem 7: 07/03/23 08:49 07/03/23 08:49 Labs: Abnormal Lab Results - Last 24 Hours (Table) 07/02/23 07/02/23 07/02/23 Range/Units 06:48 11:47 16:16 Sodium 134 L (137-145) mmol/L Chloride 90 L (98-107) mmol/L Carbon Dioxide 40 H (22-30) mmol/L BUN 28 H (7-17) mg/dL Glucose 211 H (74-99) mg/dL POC Glucose (mg/dL) 220 H 211 H (70-110) mg/dL 07/02/23 07/03/23 Range/Units 19:35 05:51 Sodium (137-145) mmol/L Chloride (98-107) mmol/L Carbon Dioxide (22-30) mmol/L BUN (7-17) mg/dL Glucose (74-99) mg/dL POC Glucose (mg/dL) 240 H 267 H (70-110) mg/dL Microbiology - Last 24 Hours (Table) 06/29/23 13:21 Blood Culture - Preliminary Blood
[2023-07-03 09:03] LABS: ABG Base Excess 14.5 mmol/L; ABG HCO3 38 mmol/L (21-25); ABG Oxygen Saturation 91.9 % (94-97); ABG PCO2 52 mmHg (35-45); ABG PH 7.47 (7.35-7.45); ABG PO2 62 mmHg (83-108); ABG TCO2 40 mmol/L (19-24); Allen Test Performed? Yes
[2023-07-03 09:06] VITALS: RESP 18
[2023-07-03 09:39] LABS: HCT 42.8 % (34.0-46.0); HGB 13.5 gm/dL (11.4-16.0); Hypochromasia Slight; MCH 27.9 pg (25.0-35.0); MCHC 31.6 g/dL (31.0-37.0); MCV 88.2 fL (80.0-100.0); Mean Platelet Volume 8.3; Platelet Count 250 k/uL (150-450); RBC 4.85 m/uL (3.80-5.40); RDW 14.9 % (11.5-15.5); WBC 17.6 k/uL (3.8-10.6)
[2023-07-03 10:04] LABS: African American GFR (CKD) >90 (>60 ml/min/1.73 sqM); Anion Gap 8 mmol/L; Blood Urea Nitrogen 27 mg/dL (7-17); Calcium 8.6 mg/dL (8.4-10.2); Carbon Dioxide 34 mmol/L (22-30); Chloride 91 mmol/L (98-107); Glucose 234 mg/dL (74-99); Magnesium 1.7 mg/dL (1.6-2.3); Non-African American GFR(CKD) >90 (>60 ml/min/1.73 sqM); Potassium 4.1 mmol/L (3.5-5.1); Sodium 133 mmol/L (137-145)
--- NOTE | 2023-07-03 10:56 | P.PN ---
Subjective Progress Note Date: 07/03/23 This is a 57-year-old female patient hospitalized for an acute COPD exacerbation shortness of breath. The patient was in the hospital between 06/21/2023 and 06/27/2023 for the same. The patient is morbidly obese. The patient also has chronic A-fib, coronary disease with previous MO, chronic anxiety and depression. The patient was supported with a BiPAP and the patient felt much better. In fact she reported this is the best night that she has slept able to take a deep breath while being on a BiPAP that was given to her overnight regarding her COPD exacerbation. Obviously, she has features of obstructive sleep apnea that needs to be worked up and on an outpatient basis. She was taken off the BiPAP and currently she is on oxygen 4 L/min nasal cannula. She remains on DuoNeb updrafts. She remains on IV Solu-Medrol 60 mg every 6 hours. She is also on Lasix 40 mg every 12 hours. Feeling better. She is less short of breath. No signs of any CO2 narcosis. BUN is at 28 with a creatinine of 0.5 and a sodium level of 143 with a potassium level of 4.3. Note that the patient tested positive for RSV and history of exacerbations attributed to an RSV infection which exacerbated her COPD. On 07/03/2023, the patient is being seen for a follow-up. The patient is feeling better compared to yesterday. She is able to bring up some sputum and I think it is reasonable to the collected sputum sample at this point in time. She remains on bronchodilators. She remains on IV Solu-Medrol. On a separate note, the patient is doing very well on her BiPAP and she is very much interested in taking a BiPAP machine with her home. She is known to have COPD and shows also obvious features of obstructive sleep apnea. Ideally, would like to do a polysomnography and a CPAP titration to get a device on an outpatient basis. However, if her blood gases showing significant hypercapnic respiratory failure, we should be able to arrange for noninvasive positive pressure ventilator at the time of discharge. She continues to have edema in lower extremities bilaterally and she is still on Lasix 40 mg IV every 12 hours. She is in negative fluid balance. The white cell count is at 17.6 with a hemoglobin 13.5, sodium is at 133, BUN is at 27 with a creatinine of 0.5 and a potassium level is at 4.1. Awake and alert. No signs of any CO2 narcosis. Objective - Vital Signs Vital signs: Vital Signs Temp 98.6 F 07/03/23 04:00 Pulse 116 H 07/03/23 08:04 Resp 20 07/03/23 04:00 BP 137/85 07/03/23 04:00 Pulse Ox 92 L 07/03/23 04:00 FiO2 30 07/03/23 00:05 Intake & Output 07/02/23 07/03/23 07/03/23 18:59 06:59 18:59 Intake Total 236 540 Output Total 250 Balance 236 -250 540 Weight 129.4 kg Intake: Oral 236 540 Output: Urine 250 Other: Voiding Method Toilet # Voids 3 - Exam No acute distress, oriented x 3. Currently on 4 L of oxygen. Her cough is wet and congested sounding. No use of accessory muscles, or conversational dyspnea. HEENT examination is grossly unremarkable. Mucous membranes are moist. No oral lesions. Neck supple. Full range of motion. No adenopathy thyromegaly or neck vein distention. Cardiovascular examination reveals regular rhythm rate. S1-S2 normal. No S3 or S4. No discernible murmur noted. H Heart sounds are distant. Lungs reveal inspiratory and expiratory wheezes and rhonchi. No crackles. Breath sounds equal bilaterally. Her cough is wet and congested sounding. Abdomen soft bowel sounds are heard. No masses or tenderness. Extremities are intact. No cyanosis clubbing or edema. Skin is without rash or lesion. Neurologic examination is brief but nonfocal. - Labs CBC & Chem 7: 07/03/23 08:49 07/03/23 08:49 Labs: Abnormal Lab Results - Last 24 Hours (Table) 07/02/23 07/02/23 07/02/23 Range/Units 11:47 16:16 19:35 POC Glucose (mg/dL) 220 H 211 H 240 H (70-110) mg/dL 07/03/23 Range/Units 05:51 POC Glucose (mg/dL) 267 H (70-110) mg/dL Microbiology - Last 24 Hours (Table) 06/29/23 13:21 Blood Culture - Preliminary Blood Assessment and Plan Plan: Acute hypoxemic respiratory failure secondary to COPD exacerbation, complicated by RSV tracheobronchitis. Clinically improving and the patient was taken off of BiPAP and currently on 4 L of oxygen by nasal cannula, clinically improving, producing some mucus Childhood asthma and the patient reports that she was intubated in the past on multiple occasions as a child in [facility]. Body mass index of 50.6, likely underlying obstructive sleep apnea related to obesity. The patient felt significantly improved while being on a BiPAP yesterday at a pressure of 12/6 cm of water with an FiO2 of 30% and currently she is off the BiPAP. However, she reports that her night was excellent and this is the first time she is able to take a deep breath. Chronic hypoxic respiratory failure due to COPD and the patient is utilizing oxygen between 2 and 3 L nasal cannula Prior history of significant tobacco use. Recent admission to the hospital, between June 21 and June 27. History of atrial fibrillation. Rate is controlled and the patient is on long- term anticoagulation with Eliquis. History of hyperlipidemia. History of hypertension. History of coronary artery disease, with previous PCI/stent placement. History of myocardial infarction. Chronic anxiety/depression. Obesity. Patient has a body mass index of 50.6 Plan: Clinically improving and the patient will be kept on the same treatment No need to make any adjustments on her bronchodilators or steroids, continue the IV Solu-Medrol dose of 60 mg IV every 6 hours Continue Lasix 40 mg every 12 hours and monitor serum bicarb Obtain a blood gas and assess for hypercapnic respiratory failure Would encourage her to use the BiPAP on and off during the day especially at nighttime Patient has obvious features of obstructive sleep apnea and this is to be worked up on outpatient basis regarding the possibility of her having AUTUMN. Meanwhile she will be kept on the BiPAP. During her hospital stay Monitor electrolytes patient that the patient is taking Lasix Will continue to follow. Clinically improving.
[2023-07-03] MEDS: INSULIN DETEMIR (LEVEMIR) 100 UNIT/ML SYR SQ SCH (10:57)
[2023-07-03 11:40] LABS: Glucose,Whole Blood 222 mg/dL (70-110)
[2023-07-03 16:38] LABS: Glucose,Whole Blood 247 mg/dL (70-110)
[2023-07-03 20:35] LABS: Glucose,Whole Blood 318 mg/dL (70-110)
[2023-07-04 06:16] LABS: Glucose,Whole Blood 184 mg/dL (70-110)
[2023-07-04 10:23] LABS: HCT 46.1 % (34.0-46.0); HGB 14.2 gm/dL (11.4-16.0); Hypochromasia Slight; MCH 27.3 pg (25.0-35.0); MCHC 30.8 g/dL (31.0-37.0); MCV 88.7 fL (80.0-100.0); Mean Platelet Volume 8.2; Platelet Count 276 k/uL (150-450); RDW 14.8 % (11.5-15.5); WBC 11.5 k/uL (3.8-10.6)
[2023-07-04 10:27] LABS: African American GFR (CKD) >90 (>60 ml/min/1.73 sqM); Anion Gap 7 mmol/L; Blood Urea Nitrogen 29 mg/dL (7-17); Calcium 8.9 mg/dL (8.4-10.2); Carbon Dioxide 37 mmol/L (22-30); Chloride 89 mmol/L (98-107); Glucose 285 mg/dL (74-99); Magnesium 1.7 mg/dL (1.6-2.3); Non-African American GFR(CKD) >90 (>60 ml/min/1.73 sqM); Sodium 133 mmol/L (137-145)
[2023-07-04 11:14] VITALS: BMI 50.5
--- NOTE | 2023-07-04 11:37 | P.DS ---
Providers Date of admission: 06/29/23 15:49 Expected date of discharge: 07/04/23 Attending physician: Prakash Gomez MD Consults: 06/30/23 11:21 Consult Physician Routine Consulting Provider: Bernardino Lemus Consult Reason/Comments: COPD RSV Do you want consulting provider notified?: Yes Primary care physician: Sugey Chester MD Hospital Course: Discharge Diagnosis: Acute on chronic hypoxic respiratory failure on 3 L at home Acute exacerbation of COPD RSV tracheobronchitis Suspected obstructive sleep apnea Diabetes mellitus type 2, insulin requiring Acute exacerbation of diastolic congestive heart failure with ejection fraction 50 to 55% Atrial fibrillation with rapid ventricular response, now rate controlled Hypertension Dyslipidemia Coronary artery disease History obesity with BMI 50.5 SIRS, resolved and secondary to COPD exacerbation Hospital Course: Patient is a 57-year-old female with COPD, chronic hypoxic respiratory failure on 3 to 4 L nasal cannula at home, GERD, diabetes, A-fib, and coronary artery disease who presented to the emergency department with complaints of shortness of breath. She was recently hospitalized here from 06/21 through 06/27 for COPD exacerbation, RSV URI, and A-fib with RVR. On arrival to the ER here she underwent extensive evaluation. She was found to be in atrial fibrillation with rapid ventricular response, BNP mildly elevated at 2890, white blood cell count elevated at 17.7. Patient was admitted for COPD, SIRS, and RSV. She was started on BiPAP. Pulmonary was consulted. Procalcitonin came back at 0.02 and antibiotics were discontinued. She was continued on bronchodilators and steroids. She continued to use BiPAP with sleeping and naps. She continued to slowly improve. She was cleared by pulmonary for discharge. Arrangements were made for sleep study. Follow-up: She will have a sleep study performed in the outpatient sleep center this evening, she will see Dr. Batista for the results in 1 week. She will complete a prednisone taper. She will use Lasix for the next 3 days. Patient seen and examined at bedside. Breathing is much better, still some lower extremity edema. Really wants a BiPAP for at home. We again discussed that she will need a sleep study before this can be provided. Vital signs reviewed and stable. General: Nontoxic, no distress, appears at stated age Cardiovascular: S1S2 reg, no murmur, positive posterior tibial pulse bilateral, Lungs: Decreased bs bilateral, no rhonchi, no rales, no accessory muscle use Abdominal: Soft, nontender to palpation, no guarding, no appreciable organomegaly Ext: No gross muscle atrophy, no edema b/l lower extremities, no contractures Neuro: CN II-XI grossly intact, no focal neuro deficits Psych: Alert, oriented, appropriate affect A total of 33 minutes of time were spent preparing this complex discharge summary. Patient was discharged on 07/04/2023. This dictation was prepared using [employer] voice recognition software. Though every attempt is made to correct errors during dictation some may still exist. Plan - Discharge Summary Discharge Rx Participant: No New Discharge Prescriptions: New predniSONE [Deltasone] 0 mg PO DIRECTED #12 tab Furosemide [Lasix] 20 mg PO BID #6 tab Continue HYDROcodone/APAP 5-325MG [[place] 5-325] 1 tab PO TID Cetirizine HCl 10 mg PO DAILY Apixaban [Eliquis] 5 mg PO BID Atorvastatin [Lipitor] 40 mg PO HS Dulaglutide [Trulicity] 1.5 mg SQ SA Ergocalciferol [Vitamin D2 (1250 Mcg = 12319 Iu)] 1,250 mcg PO SA lisinopriL [Zestril] 5 mg PO DAILY Omeprazole 20 mg PO DAILY Metoprolol Tartrate [Lopressor] 75 mg PO BID #180 tab Folic Acid 1 mg PO DAILY FLUoxetine HCL [PROzac] 40 mg PO DAILY@1200 Gabapentin [Neurontin] 300 mg PO BID Mirtazapine [Remeron] 15 mg PO HS Montelukast [Singulair] 10 mg PO DAILY Ipratropium-Albuterol Nebulize [Duoneb 0.5 mg-3 mg/3 ml Soln] 3 ml INHALATION RT-QID Diltiazem Oral [Cardizem*] 60 mg PO TID #90 tab Fluticasone Nasal [place] [Flonase Nasal [place]] 2 spray EA NOSTRIL DAILY ml guaiFENesin [Mucinex] 1,200 mg PO Q12HR tab Discontinued Furosemide [Lasix] 40 mg PO DAILY #5 tablet Nystatin 100,000 Unit/ml Susp [Mycostatin Oral Susp] 500,000 unit PO QID 9 Days #200 ml predniSONE [Deltasone] See Taper PO DAILY@1200 Discharge Medication List Apixaban [Eliquis] 5 mg PO BID 10/26/22 [History] Atorvastatin [Lipitor] 40 mg PO HS 10/26/22 [History] Cetirizine HCl 10 mg PO DAILY 10/26/22 [History] FLUoxetine HCL [PROzac] 40 mg PO DAILY@1200 10/26/22 [History] Folic Acid 1 mg PO DAILY 10/26/22 [History] Gabapentin [Neurontin] 300 mg PO BID 10/26/22 [History] HYDROcodone/APAP 5-325MG [[place] 5-325] 1 tab PO TID 10/26/22 [History] Mirtazapine [Remeron] 15 mg PO HS 10/26/22 [History] Montelukast [Singulair] 10 mg PO DAILY 10/26/22 [History] Dulaglutide [Trulicity] 1.5 mg SQ SA 06/21/23 [History] Ergocalciferol [Vitamin D2 (1250 Mcg = 25784 Iu)] 1,250 mcg PO SA 06/21/23 [Hi story] Ipratropium-Albuterol Nebulize [Duoneb 0.5 mg-3 mg/3 ml Soln] 3 ml INHALATION RT-QID 06/21/23 [History] Omeprazole 20 mg PO DAILY 06/21/23 [History] lisinopriL [Zestril] 5 mg PO DAILY 06/21/23 [History] Diltiazem Oral [Cardizem*] 60 mg PO TID #90 tab 06/27/23 [Rx] Fluticasone Nasal [place] [Flonase Nasal [place]] 2 spray EA NOSTRIL DAILY ml 06/27/23 [Rx] Metoprolol Tartrate [Lopressor] 75 mg PO BID #180 tab 06/27/23 [Rx] guaiFENesin [Mucinex] 1,200 mg PO Q12HR tab 06/27/23 [Rx] Furosemide [Lasix] 20 mg PO BID #6 tab 07/04/23 [Rx] predniSONE [Deltasone] 0 mg PO DIRECTED #12 tab 07/04/23 [Rx] Follow up Appointment(s)/Referral(s): Sugey Chester MD [Primary Care Provider] - 1-2 days Lui Batista MD [STAFF PHYSICIAN] - 1 Week Patient Instructions/Handouts: Sleep Apnea (GEN), Sleep Study (GEN) Activity/Diet/Wound Care/Special Instructions: Activity: As tolerated Diet: Heart Healthy Special Instructions: Take potassium 10 mEq daily while on lasix or eat a banana daily Sleep center at 7:45 tonight it is on the 3rd floor of the [facility]. Discharge/Stand Alone Forms: Personal Dance Instructor, Who Do I Call? Discharge Disposition: HOME WITH HOME HEALTH SERVICES
[2023-07-04 11:50] LABS: Glucose,Whole Blood 294 mg/dL (70-110)
--- NOTE | 2023-07-04 12:06 | P.PN ---
Subjective Progress Note Date: 07/04/23 This is a 57-year-old female patient hospitalized for an acute COPD exacerbation shortness of breath. The patient was in the hospital between 06/21/2023 and 06/27/2023 for the same. The patient is morbidly obese. The patient also has chronic A-fib, coronary disease with previous IA, chronic anxiety and depression. The patient was supported with a BiPAP and the patient felt much better. In fact she reported this is the best night that she has slept able to take a deep breath while being on a BiPAP that was given to her overnight regarding her COPD exacerbation. Obviously, she has features of obstructive sleep apnea that needs to be worked up and on an outpatient basis. She was taken off the BiPAP and currently she is on oxygen 4 L/min nasal cannula. She remains on DuoNeb updrafts. She remains on IV Solu-Medrol 60 mg every 6 hours. She is also on Lasix 40 mg every 12 hours. Feeling better. She is less short of breath. No signs of any CO2 narcosis. BUN is at 28 with a creatinine of 0.5 and a sodium level of 143 with a potassium level of 4.3. Note that the patient tested positive for RSV and history of exacerbations attributed to an RSV infection which exacerbated her COPD. On 07/03/2023, the patient is being seen for a follow-up. The patient is feeling better compared to yesterday. She is able to bring up some sputum and I think it is reasonable to the collected sputum sample at this point in time. She remains on bronchodilators. She remains on IV Solu-Medrol. On a separate note, the patient is doing very well on her BiPAP and she is very much interested in taking a BiPAP machine with her home. She is known to have COPD and shows also obvious features of obstructive sleep apnea. Ideally, would like to do a polysomnography and a CPAP titration to get a device on an outpatient basis. However, if her blood gases showing significant hypercapnic respiratory failure, we should be able to arrange for noninvasive positive pressure ventilator at the time of discharge. She continues to have edema in lower extremities bilaterally and she is still on Lasix 40 mg IV every 12 hours. She is in negative fluid balance. The white cell count is at 17.6 with a hemoglobin 13.5, sodium is at 133, BUN is at 27 with a creatinine of 0.5 and a potassium level is at 4.1. Awake and alert. No signs of any CO2 narcosis. On 07/04/2023, the patient is being seen for a follow-up. The patient is improved and the patient is no specific complaints on today's evaluation. She is still producing someMucus. Blood gas was done yesterday and the patient was found to have a pH of 7.47 with a pCO2 of 50, pO2 of 62 and this was done on 512 for details. As such, the patient has chronic hypoxic and hypercapnic respiratory failure and she has obvious features of obstructive sleep apnea. She is scheduled to undergo a screening polysomnography immediately [facility]. Meanwhile, no altered mentation patient continues to use her BiPAP overnight. She remains on bronchodilators and steroids. Sodium level is at 133, BUN is at 29 with a creatinine of 0.5. WBC 11.5 with a hemoglobin of 14.2. Lower extremity edema is improving as the patient is also receiving IV Lasix. Objective - Vital Signs Vital signs: Vital Signs Temp 97.8 F 07/04/23 04:00 Pulse 96 07/04/23 08:01 Resp 18 07/04/23 04:00 BP 136/82 07/04/23 04:00 Pulse Ox 95 07/04/23 04:00 FiO2 30 07/04/23 00:30 Intake & Output 07/03/23 07/04/23 07/04/23 18:59 06:59 18:59 Intake Total 1620 1040 360 Output Total 1600 1900 200 Balance 20 -860 160 Intake: Oral 1620 1040 360 Output: Urine 1600 1900 200 Other: Voiding Method Toilet Toilet # Voids 1 - Exam No acute distress, oriented x 3. Currently on 4 L of oxygen. Her cough is wet and congested sounding. No use of accessory muscles, or conversational dyspnea. HEENT examination is grossly unremarkable. Mucous membranes are moist. No oral lesions. Neck supple. Full range of motion. No adenopathy thyromegaly or neck vein distention. Cardiovascular examination reveals regular rhythm rate. S1-S2 normal. No S3 or S4. No discernible murmur noted. H Heart sounds are distant. Lungs reveal inspiratory and expiratory wheezes and rhonchi. No crackles. Breath sounds equal bilaterally. Her cough is wet and congested sounding. Abdomen soft bowel sounds are heard. No masses or tenderness. Extremities are intact. No cyanosis clubbing or edema. Skin is without rash or lesion. Neurologic examination is brief but nonfocal. - Labs CBC & Chem 7: 07/04/23 09:10 07/04/23 09:10 Labs: Abnormal Lab Results - Last 24 Hours (Table) 07/03/23 07/03/23 07/03/23 Range/Units 11:39 16:37 20:16 POC Glucose (mg/dL) 222 H 247 H 318 H (70-110) mg/dL 07/04/23 Range/Units 05:48 POC Glucose (mg/dL) 184 H (70-110) mg/dL Microbiology - Last 24 Hours (Table) 07/03/23 09:27 Gram Stain - Preliminary Sputum Assessment and Plan Plan: Acute hypoxemic respiratory failure secondary to COPD exacerbation, complicated by RSV tracheobronchitis. Clinically improving and the patient was taken off of BiPAP and currently on 4 L of oxygen by nasal cannula, clinically improving, producing some mucus, clinically improved and the patient feels that she is getting closer to her baseline. Chronic hypoxic/hypercapnic respiratory failure, please refer to the blood gases was done on oxygen between 3 and 4 L nasal cannula. Childhood asthma and the patient reports that she was intubated in the past on multiple occasions as a child [facility]. Body mass index of 50.6, likely underlying obstructive sleep apnea related to obesity. The patient felt significantly improved while being on a BiPAP yesterday at a pressure of 12/6 cm of water with an FiO2 of 30% and currently she is off the BiPAP. However, she reports that her night was excellent and this is the first time she is able to take a deep breath. Chronic hypoxic respiratory failure due to COPD and the patient is utilizing oxygen between 2 and 3 L nasal cannula Prior history of significant tobacco use. Recent admission to the hospital, between June 21 and June 27. History of atrial fibrillation. Rate is controlled and the patient is on long- term anticoagulation with Eliquis. History of hyperlipidemia. History of hypertension. History of coronary artery disease, with previous PCI/stent placement. History of myocardial infarction. Chronic anxiety/depression. Obesity. Patient has a body mass index of 50.6 Plan: Patient is to be discharged today. The patient is going to undergo a outpatient polysomnography within the next 24 hours. I am going to arrange for his CPAP/BiPAP device once sleep study is completed. Stop the IV Solu-Medrol and put the patient on prednisone burst taper She is using Trelegy Ellipta on outpatient basis as maintenance in addition to albuterol nebulized treatments [id number] Stopped IV Lasix and put the patient on oral Lasix at the time of discharge Clinically improving and the patient will be kept on the same treatment Patient has obvious features of obstructive sleep apnea and this is to be worked up on outpatient basis regarding the possibility of her having AUTUMN. Monitor electrolytes patient that the patient is taking Lasix Will continue to follow. Clinically improving.
[2023-07-04 12:14] VITALS: BP 139/91; TEMP 98.6
[2023-07-04] MEDS: SULFAMETHOX-TMP 800-160MG 1 EACH TAB PO SCH (13:07)
[2023-07-04 16:54] LABS: Glucose,Whole Blood 180 mg/dL (70-110)
[2023-07-04 17:08] VITALS: PULSE 96
== END 2023-07-04 18:21 | disposition home health service (06) | DRG 133 ==
LOC: EC 13:11 → 3SCARD 15:49
PROVIDERS: ADMIT Student in an Organized Health Care Education/Training Program; ATTEND Student in an Organized Health Care Education/Training Program
DX: J96.21 Acute and chronic respiratory failure with hypoxia (principal); I50.33 Acute on chronic diastolic (congestive) heart failure; J96.22 Acute and chronic respiratory failure with hypercapnia; J44.0 Chronic obstructive pulmonary disease with (acute) lower respiratory infection; I48.20 Chronic atrial fibrillation, unspecified; J44.1 Chronic obstructive pulmonary disease with (acute) exacerbation; Z68.43 Body mass index [BMI] 50.0-59.9, adult; I11.0 Hypertensive heart disease with heart failure; E66.01 Morbid (severe) obesity due to excess calories; E11.65 Type 2 diabetes mellitus with hyperglycemia; F32.A Depression, unspecified; J20.5 Acute bronchitis due to respiratory syncytial virus; G47.33 Obstructive sleep apnea (adult) (pediatric); K21.9 Gastro-esophageal reflux disease without esophagitis; T38.0X5A Adverse effect of glucocorticoids and synthetic analogues, initial encounter; E78.5 Hyperlipidemia, unspecified; F41.9 Anxiety disorder, unspecified; I25.10 Atherosclerotic heart disease of native coronary artery without angina pectoris; I25.2 Old myocardial infarction; F17.200 Nicotine dependence, unspecified, uncomplicated; Z71.6 Tobacco abuse counseling; Z79.01 Long term (current) use of anticoagulants; Z79.85 Long-term (current) use of injectable non-insulin antidiabetic drugs; Z79.891 Long term (current) use of opiate analgesic; Z79.899 Other long term (current) drug therapy; Z95.5 Presence of coronary angioplasty implant and graft; Z56.0 Unemployment, unspecified; Z59.6 Low income; Z71.3 Dietary counseling and surveillance; Z88.6 Allergy status to analgesic agent; Z88.1 Allergy status to other antibiotic agents
CPT/HCPCS: 36415; 36600; 71046; 80048; 80053; 82805; 83036; 83605; 83735; 83880; 84145; 84484; 85025; 85027; 85610; 85730; 87040; 87070; 87077; 87186; 87205; 87636; 93005; 94640; 94660; 94760; 96374; 96375; 96376; 99291

== ENCOUNTER 2023-07-04 18:58 | Outpatient (CLI) | payer OTHER ==
--- NOTE | 2023-07-05 22:10 | P.PCN ---
Date of Procedure: 07/04/23 Description of Procedure: Polysomnography report Date of service is 07/04/2023 Pertinent history this is a 57-year-old female patient, known history of advanced COPD attributed to an acute RSV infection. During her hospital stay, the patient was offered BiPAP therapy and the patient encountered significant clinical response in terms of her sleep quality which made us quite suspicious that the patient has an underlying obstructive sleep apnea in combination with her COPD. Note that she has loud snoring, sleep fragmentation and chronic hypersomnia sleepiness. She is morbidly obese and she has a body mass index of 50.6. She has chronic hypoxic and hypercapnic respiratory failure as evident on her blood gas. Her pCO2 is in the low 50 range. She has coronary artery disease with previous PCI and stenting, hypertension, hyperlipidemia, A-fib, chronic anxiety and depression. Following her discharge, the patient was given a screening polysomnography to evaluate for sleep apnea Pertinent physical findings. The patient's height is 5 feet and 3 inches, weight is 285 pounds and a body mass index is 50.5 Technical description The patient was studied using a standard complex polysomnography protocol that included recording of the 2 EKG, Central, occipital and frontal EEG, right and left outer canthus EOG, submental EMG, right and left anterior tibialis EMG, respiratory airflow by thermocouple and or pressure/flow transducer, respiratory efforts by abdominal and thoracic PVDF belts, oxygen saturation by cable oximetry. Position by observation synchronized the PSG.Equipment used: [employer]. Sleep characteristics Total time in bed was 484.5 minutes. The total sleep time was 445.0 minutes. The sleep latency was calculated to be at 91.8%. The latency to sleep onset was 8 minutes. Related to REM sleep was 182.0 minutes. The sleep architecture was characterized by 1.9% stage I, 72.5% stage II, 14.5% stage III, and 11.1% REM sleep. The wake after sleep onset time was 31 minutes. The total arousal index was 11.7 Respiratory analysis The sleep study showed a total of 314 obstructive events of which 1 was obstructive apnea, 0 were mixed apneas and 313 were obstructive hypopneas. Based on the AASM rule, 1B with 4% desaturations, the patient's apnea-hypopnea index was calculated to be at 41.8 and this is consistent with severe obstructive sleep apnea. The central apnea index was 0. Oxygenation analysis The patient had multiple episodes of oxygen saturations throughout the sleep study. The baseline pulse ox was 91% while awake. Lowest pulse ox was 53% during sleep and the patient spent approximately 1 hours and 55 minutes of the sleep time below pulse ox of 89%. The minimum pulse ox was during REM sleep calculated to be at 53% Sleep continuity summary During the sleep study, the patient had a total of 87,000 with an index of 11.7. The respiratory arousal index was 7.1 Cardiac analysis The average heart rate was 93, minimum heart rate was 103 and a maximum heart rate was 111, and the rhythm is consistent with A-fib. Periodic limb movements The patient had total of 10 periodic limb movement activity with an index of 1.3. The periodic limb movement activity that was associated with arousals was 4 with an index of 0.5. Assessment Severe symptomatic AUTUMN with an AHI of 41.8. The patient's obstructive respiratory events are essentially in the form of 65 apneas and the disease was worse during REM sleep in the supine body position. 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 The patient will be started on CPAP therapy and she may ultimately be moved to a BiPAP treatment as this may be more comfortable for this patient especially with her advanced COPD. A final decision on the pressure setting of the type of device will be made at the time of the titration. Meanwhile, we will work on making the patient lose weight and optimize her COPD. She rates her comorbidities patient maintain regular sleep schedule. Maintain good sleep hygiene measures. Will continue to follow.
== END 2023-07-05 05:45 | disposition home or self-care (01) ==
LOC: 3 N SLEEP 18:58
PROVIDERS: ATTEND Internal Medicine Critical Care Medicine
DX: G47.33 Obstructive sleep apnea (adult) (pediatric) (principal); J44.9 Chronic obstructive pulmonary disease, unspecified; G47.36 Sleep related hypoventilation in conditions classified elsewhere; G47.52 REM sleep behavior disorder; G47.10 Hypersomnia, unspecified; E78.5 Hyperlipidemia, unspecified; J96.11 Chronic respiratory failure with hypoxia; J96.12 Chronic respiratory failure with hypercapnia; I25.10 Atherosclerotic heart disease of native coronary artery without angina pectoris; I48.20 Chronic atrial fibrillation, unspecified; F41.9 Anxiety disorder, unspecified; F32.A Depression, unspecified; I10 Essential (primary) hypertension; E66.01 Morbid (severe) obesity due to excess calories; Z68.43 Body mass index [BMI] 50.0-59.9, adult; Z95.5 Presence of coronary angioplasty implant and graft; Z88.6 Allergy status to analgesic agent; Z88.8 Allergy status to other drugs, medicaments and biological substances; Z88.1 Allergy status to other antibiotic agents; Z79.899 Other long term (current) drug therapy; Z79.01 Long term (current) use of anticoagulants
CPT/HCPCS: 95810

== ENCOUNTER 2023-07-09 19:46 | Outpatient (CLI) | payer OTHER ==
--- NOTE | 2023-07-10 15:04 | P.PCN ---
Date of Procedure: 07/09/23 Operative Findings: CPAP titration report Date of services 07/09/2023 Pertinent respiratory This is a 57-year-old female patient with known history of obstructive sleep apnea. Diagnosis was established on a polysomnography that was done on 07/04/2023 and the patient was found to have severe disease with an AHI of 41.8. The patient's disease was worse during REM sleep and in the supine body position and the patient also encountered severe hyper oxygen desaturations. Based on that, the patient was asked to come into the sleep center to undergo a CPAP/BiPAP titration. Noted the patient has advanced COPD with chronic hypoxic and hypercapnic respiratory failure. The patient has chronic A-fib, hypertension, hyperlipidemia and coronary artery disease with previous PCI and stenting. The patient suffered from chronic hypersomnia. She has anxiety and depression Pertinent physical findings The patient weight is 285 pounds, the height is 5 feet and 3 inches and the body mass index is 50.5 Technical description The patient was studied using a standard complex polysomnography protocol that included recording of the 2 EKG, Central, occipital and frontal EEG, right and left outer canthus EOG, submental EMG, right and left anterior tibialis EMG, respiratory airflow by thermocouple and or pressure/flow transducer, respiratory efforts by abdominal and thoracic PVDF belts, oxygen saturation by cable oximetry. Position by observation synchronized the PSG. Stepwise CPAP titration was done to an 8 obstructive respiratory events equipment used: [employer]. Sleep architecture The total recording duration was: 71.5 minutes. The total sleep time was 444 minutes. The overall sleep efficiency was adequate at 94.2%. The latency to sleep onset was 3.5 minutes and the latency to REM sleep was 12 minutes. The sleep architecture revealed the 0.7% stage I, 73.2% stage II, 0% stage III and 2 6.1% REM sleep. The wake after sleep onset time was 23 minutes and the total arousal index was 1.9 Sleep continuity summary The patient had a total of 14 arousals with an index of 1.9. The respiratory arousal index was 0 Periodic movement events No significant. Agreement with activity was noted throughout the sleep study Cardiac summary The average heart rate was 79 with a minimum heart rate of 69 and a maximum heart rate was 90. Respiratory analysis The patient was started on CPAP therapy initiated pressure of 5 cm of water and the pressure was gradually increased by intermittent 1 cm to reach a maximum CPAP pressure of 11 cm of water. Oxygen was also added at 3 L. Oxygen was added to maintain a saturation above 90% as the patient was having significant nocturnal oxygen desaturation and this is related to an overlap of obstructive sleep apnea and COPD. Note that during the titration, there was complete remission of the obstructive respiratory events specially at a CPAP pressure of 10 and 11 cm of water. No desaturations were encountered. Note that the patient was studied and measured in various sleep stages including REM sleep. Majority of the recording was done while the patient was sleeping on her side. Oxygenation analysis No significant desaturation when encountered during the titration. Noted oxygen was also added at 3 L along with CPAP therapy Assessment Severe symptomatic AUTUMN with an AHI of 41.8. The patient underwent a successful CPAP titration. Severe nocturnal oxygen desaturation, recovered with CPAP therapy along with oxygen supplementation Chronic hypersomnia Morbid obesity with a BMI of 50.5 Advanced COPD with chronic hypoxic and hypercapnic respiratory failure Chronic A-fib Hypertension Hyperlipidemia Coronary artery disease previous coronary stenting Chronic anxiety/depression Plan Initiate CPAP therapy at a pressure of 11 cm of water with a C-Flex of 3. The patient will be offered a small size AirFit F20 fullface mask. The patient was seen back in the office and 30 to 90 days to assess clinical response and compliancy. Encourage weight loss. Optimize comorbidities including her COPD. Maintain regular sleep hygiene measures and regular sleep schedule. Will continue to follow.
== END 2023-07-10 06:10 | disposition home or self-care (01) ==
LOC: 3 N SLEEP 19:46
PROVIDERS: ATTEND Internal Medicine Critical Care Medicine
DX: G47.33 Obstructive sleep apnea (adult) (pediatric) (principal); J44.9 Chronic obstructive pulmonary disease, unspecified; G47.36 Sleep related hypoventilation in conditions classified elsewhere; I10 Essential (primary) hypertension; I25.10 Atherosclerotic heart disease of native coronary artery without angina pectoris; I48.20 Chronic atrial fibrillation, unspecified; G47.10 Hypersomnia, unspecified; F41.9 Anxiety disorder, unspecified; F32.A Depression, unspecified; E78.5 Hyperlipidemia, unspecified; E66.01 Morbid (severe) obesity due to excess calories; J96.11 Chronic respiratory failure with hypoxia; J96.12 Chronic respiratory failure with hypercapnia; Z68.43 Body mass index [BMI] 50.0-59.9, adult; Z95.5 Presence of coronary angioplasty implant and graft; Z88.8 Allergy status to other drugs, medicaments and biological substances; Z88.1 Allergy status to other antibiotic agents; Z88.6 Allergy status to analgesic agent; Z79.899 Other long term (current) drug therapy; Z79.01 Long term (current) use of anticoagulants; Z79.51 Long term (current) use of inhaled steroids
CPT/HCPCS: 95811

== ENCOUNTER 2023-07-14 14:19 | Inpatient (IN) | payer OTHER ==
--- NOTE | 2023-07-14 14:45 | ED ---
General Adult HPI - General Chief complaint: Skin/Abscess/Foreign Body Stated complaint: wounds/infection Time Seen by Provider: 07/14/23 14:28 Source: patient, EMS Mode of arrival: EMS Limitations: no limitations - History of Present Illness Initial comments: 57-year-old female with a past medical history of COPD on 3-4 L nasal cannula at home presents to the emergency room for a chief complaint of leg swelling. Patient states she has had leg swelling for weeks however over the past 2 days she has third have redness and pain in her lower legs. She was recently admitted to the hospital and discharged on 07/04/2023. She was given Lasix to use for 3 days after discharge for leg swelling. Patient states this is now worse. She denies fevers or lives alone at home..Patient has no other complaints at this time including shortness of breath, chest pain, abdominal pain, nausea or vomiting, headache, or visual changes. - Related Data Home Medications Medication Instructions Recorded Confirmed Apixaban [Eliquis] 5 mg PO BID 10/26/22 06/29/23 Atorvastatin [Lipitor] 40 mg PO HS 10/26/22 06/29/23 Cetirizine HCl 10 mg PO DAILY 10/26/22 06/29/23 FLUoxetine HCL [PROzac] 40 mg PO DAILY@1200 10/26/22 06/29/23 Folic Acid 1 mg PO DAILY 10/26/22 06/29/23 Gabapentin [Neurontin] 300 mg PO BID 10/26/22 06/29/23 HYDROcodone/APAP 5-325MG [[place] 1 tab PO TID 10/26/22 06/29/23 5-325] Mirtazapine [Remeron] 15 mg PO HS 10/26/22 06/29/23 Montelukast [Singulair] 10 mg PO DAILY 10/26/22 06/29/23 Dulaglutide [Trulicity] 1.5 mg SQ SA 06/21/23 06/29/23 Ergocalciferol [Vitamin D2 (1250 1,250 mcg PO SA 06/21/23 06/29/23 Mcg = 56211 Iu)] Ipratropium-Albuterol Nebulize 3 ml INHALATION RT-QID 06/21/23 06/29/23 [Duoneb 0.5 mg-3 mg/3 ml Soln] Omeprazole 20 mg PO DAILY 06/21/23 06/29/23 lisinopriL [Zestril] 5 mg PO DAILY 06/21/23 06/29/23 Previous Rx's Medication Instructions Recorded Diltiazem Oral [Cardizem*] 60 mg PO TID #90 tab 06/27/23 Fluticasone Nasal [place] [Flonase 2 spray EA NOSTRIL DAILY ml 06/27/23 Nasal [place]] Metoprolol Tartrate [Lopressor] 75 mg PO BID #180 tab 06/27/23 guaiFENesin [Mucinex] 1,200 mg PO Q12HR tab 06/27/23 Furosemide [Lasix] 20 mg PO BID #6 tab 07/04/23 Sulfamethox-Tmp 800-160Mg [Bactrim 1 each PO BID #9 tab 07/04/23 DS 800-160 mg] predniSONE [Deltasone] 0 mg PO DIRECTED #12 tab 07/04/23 Allergies Allergy/AdvReac Type Severity Reaction Status Date / Time ibuprofen Allergy Rash/Hives Verified 06/29/23 15:12 NSAIDS (Non-Steroidal Allergy Rash/Hives Verified 06/29/23 15:12 Anti-Inflamma tetracycline Allergy Rash/Hives Verified 06/29/23 15:12 Review of Systems ROS Statement: Those systems with pertinent positive or pertinent negative responses have been documented in the HPI. ROS Other: All systems not noted in ROS Statement are negative. Past Medical History Past Medical History: Atrial Fibrillation, Asthma, COPD, Hyperlipidemia, Hypertension, Myocardial Infarction ([place]), Respiratory Disorder Additional Past Medical History / Comment(s): wears oxygen 3lnc when mobile Last Myocardial Infarction Date:: 2021 History of Any Multi-Drug Resistant Organisms: None Reported Past Surgical History: Heart Catheterization With Stent, Orthopedic Surgery Additional Past Surgical History / Comment(s): metal plate right arm, oral surgery fracture jawed,hx gallstones Past Anesthesia/Blood Transfusion Reactions: No Reported Reaction Additional Past Anesthesia/Blood Transfusion Reaction / Comment(s): No blood transfusion Date of Last Stent Placement:: 2021 Past Psychological History: Anxiety, Depression Smoking Status: Former smoker Past Alcohol Use History: None Reported Past Drug Use History: None Reported - Past Family History Mother Family Medical History: Cancer Additional Family Medical History / Comment(s): uterine, breast, lymph nodes General Exam Limitations: no limitations General appearance: alert, in no apparent distress Head exam: Present: atraumatic Eye exam: Present: normal appearance, PERRL, EOMI. Absent: scleral icterus, conjunctival injection ENT exam: Present: normal exam, mucous membranes moist Neck exam: Present: normal inspection, full ROM. Absent: tenderness Respiratory exam: Present: normal lung sounds bilaterally. Absent: respiratory distress, wheezes Cardiovascular Exam: Present: regular rate, normal rhythm, normal heart sounds Extremities exam: Present: normal capillary refill (Capillary refill less than 2 seconds bilateral lower extremities), pedal edema (Patient has edema of both bilateral lower extremities with erythema and warmth.) Course Vital Signs 07/14/23 14:21 Pulse Rate 107 H Respiratory 20 Rate Blood Pressure 118/105 O2 Sat by Pulse 99 Oximetry Medical Decision Making - Medical Decision Making Was pt. sent in by a medical professional or institution ([facility], [employer], urgent care, hospital, or senior care...) When possible be specific @ -[No] Did you speak to anyone other than the patient for history (EMS, parent, family, police, friend...)? What history was obtained from this source @ -[No] Did you review nursing and triage notes (agree or disagree)? Why? @ -[I reviewed and agree with nursing and triage notes] Were old charts reviewed (outside hosp., previous admission, EMS record, old EKG , old radiological studies, urgent care reports/EKG's, senior care records)? Report findings @ -Last admission was reviewed with discharge of 07/04/2023 Differential Diagnosis (chest pain, altered mental status, abdominal pain women, abdominal pain men, vaginal bleeding, weakness, fever, dyspnea, syncope, headache, dizziness, GI bleed, back pain, seizure, CVA, palpatations, mental health)? @ -Cellulitis, abscess, fracture, burn EKG interpreted by me (3pts min.). @ -[As above] X-rays interpreted by me (1pt min.). @ -X-rays showed no bone erosion or gas CT interpreted by me (1pt min.). @ -[None done] U/S interpreted by me (1pt. min.). @ -[None done] What testing was considered but not performed or refused? (CT, X-rays, U/S, labs)? Why? @ -[None] What meds were considered but not given or refused? Why? @ -[None] Did you discuss the management of the patient with other professionals ( professionals i.e. , PA, B[employer] WORKER, lab, RT, psych nurse, social insurance administrator, laundry worker, teacher, court registry officer, case liner)? Give summary @ -Internal medicine Was smoking cessation discussed for >3mins.? @ -[No] Was critical care preformed (if so, how long)? @ -[No] Were there social determinants of health that impacted care today? How? (Homelessness, low income, unemployed, alcoholism, drug addiction, transportation, low edu. Level, literacy, decrease access to med. care, intermediate, rehab)? @ -[No] Was there de-escalation of care discussed even if they declined (Discuss DNR or withdrawal of care, Hospice)? DNR status @ -[No] What co-morbidities impacted this encounter? (DM, HTN, Smoking, COPD, CAD, Cancer, CVA, ARF, Chemo, Hep., AIDS, mental health diagnosis, sleep apnea, morbid obesity)? @ -Morbid Obesity Was patient admitted / discharged? Hospital course, mention meds given and route, prescriptions, significant lab abnormalities, going to OR and other pertinent info. @ -57-year-old female seen and examined in the emergency room by EMS. She lives alone. States she is having trouble ambulating. She had lab work done which was relatively normal. X-rays showed no gas. However given degree of redness and bilateral extremities patient was started on IV antibiotics and admitted. Undiagnosed new problem with uncertain prognosis? @ -[No] Drug Therapy requiring intensive monitoring for toxicity (Heparin, Nitro, Insulin, Cardizem)? @ -[No] Were any procedures done? @ -[No] Diagnosis/symptom? @ Bilateral cellulitis Acute, or Chronic, or Acute on Chronic? @ -Acute Uncomplicated (without systemic symptoms) or Complicated (systemic symptoms)? @ -Uncomplicated Side effects of treatment? @ -[No] Exacerbation, Progression, or Severe Exacerbation? @ -[No] Poses a threat to life or bodily function? How? (Chest pain, [place], [place], pneumonia, PE, COPD, DKA, ARF, appy, cholecystitis, CVA, Diverticulitis, Homicidal, Suicidal, threat to staff... and all critical care pts) @ -[No] - Lab Data Result diagrams: 07/14/23 14:58 07/14/23 14:58 Lab Results 07/14/23 07/14/23 07/14/23 Range/Units 14:58 14:58 14:58 WBC 6.9 (3.8-10.6) k/uL RBC 4.00 (3.80-5.40) m/uL Hgb 11.2 L D (11.4-16.0) gm/dL Hct 35.6 (34.0-46.0) % MCV 88.9 (80.0-100.0) fL MCH 27.9 (25.0-35.0) pg MCHC 31.5 (31.0-37.0) g/dL RDW 16.0 H (11.5-15.5) % Plt Count 178 (150-450) k/uL MPV 7.5 Neutrophils % 73 % Lymphocytes % 18 % Monocytes % 4 % Eosinophils % 3 % Basophils % 0 % Neutrophils # 5.1 (1.3-7.7) k/uL Lymphocytes # 1.2 (1.0-4.8) k/uL Monocytes # 0.3 (0-1.0) k/uL Eosinophils # 0.2 (0-0.7) k/uL Basophils # 0.0 (0-0.2) k/uL Hypochromasia Slight Anisocytosis Slight Sodium 137 (137-145) mmol/L Potassium 4.1 (3.5-5.1) mmol/L Chloride 102 (98-107) mmol/L Carbon Dioxide 32 H (22-30) mmol/L Anion Gap 3 mmol/L BUN 17 (7-17) mg/dL Creatinine 0.66 (0.52-1.04) mg/dL Est GFR (CKD-EPI)AfAm >90 (>60 ml/min/1.73 sqM) Est GFR (CKD-EPI)NonAf >90 (>60 ml/min/1.73 sqM) Glucose 106 H (74-99) mg/dL Plasma Lactic Acid Rom 0.6 L (0.7-2.0) mmol/L Calcium 8.3 L (8.4-10.2) mg/dL Total Bilirubin 0.5 (0.2-1.3) mg/dL AST 28 (14-36) U/L ALT 36 H (4-34) U/L Alkaline Phosphatase 98 (38-126) U/L NT-Pro-B Natriuret Pep 1420 pg/mL Total Protein 5.7 L (6.3-8.2) g/dL Albumin 3.2 L (3.5-5.0) g/dL Disposition Clinical Impression: Cellulitis, Morbid obesity with BMI of 45.0-49.9, adult Disposition: ADMITTED IP TO THIS HOSP Is patient prescribed a controlled substance at d/c from ED?: No Referrals: Sugey Chester MD [Primary Care Provider] - 1-2 days Time of Disposition: 16:11
[2023-07-14 15:11] LABS: Anisocytosis Slight; Basophils % (A) 0 %; Eosinophils # (A) 0.2 k/uL (0-0.7); Eosinophils % (A) 3 %; HCT 35.6 % (34.0-46.0); Hypochromasia Slight; Lymphocytes # (A) 1.2 k/uL (1.0-4.8); Lymphocytes % (A) 18 %; MCH 27.9 pg (25.0-35.0); MCHC 31.5 g/dL (31.0-37.0); MCV 88.9 fL (80.0-100.0); Mean Platelet Volume 7.5; Monocytes # (A) 0.3 k/uL (0-1.0); Monocytes % (A) 4 %; Neutrophils # (A) 5.1 k/uL (1.3-7.7); Neutrophils % (A) 73 %; Platelet Count 178 k/uL (150-450); WBC 6.9 k/uL (3.8-10.6)
--- NOTE | 2023-07-14 15:27 | XR ---
EXAMINATION TYPE: XR chest 1V portable DATE OF EXAM: 07/14/2023 3:12 PM CLINICAL INDICATION:Female, 57 years old with history of cough; H COMPARISON: Chest radiographs from 06/29/2023. TECHNIQUE: XR chest 1V portable Frontal view of the chest. FINDINGS: Lungs/Pleura: There is no evidence of pleural effusion, focal consolidation, or pneumothorax. Pulmonary vascularity: Pulmonary vascular congestion. Heart/mediastinum: Cardiomediastinal silhouette is enlarged and stable. Musculoskeletal: No acute osseous pathology. Other findings: None IMPRESSION: Cardiomegaly and mild pulmonary vascular congestion. Correlate with BNP for congestive heart failure.
--- NOTE | 2023-07-14 15:31 | XR ---
EXAMINATION TYPE: XR foot limited bilateral DATE OF EXAM: 07/14/2023 3:13 PM CLINICAL INDICATION:Female, 57 years old with history of cellulitis; H COMPARISON: None TECHNIQUE: XR foot limited bilateral examined in the AP, oblique, and lateral projections. FINDINGS: No evidence of any acute osseous pathology. There is soft tissue swelling over the dorsal foot. No o sseous erosion. Joints are preserved. Calcaneal plantar spurring is present. IMPRESSION: 1. No evidence of acute fracture. 2. Soft tissue swelling over the dorsal physis without evidence for osteomyelitis. 3. No evidence of fracture. 4. Calcaneal plantar spurring.
--- NOTE | 2023-07-14 15:36 | XR ---
EXAMINATION TYPE: XR tibia fibula bilateral DATE OF EXAM: 07/14/2023 3:13 PM CLINICAL INDICATION:Female, 57 years old with history of cellulitis; COMPARISON: None TECHNIQUE: XR tibia fibula bilateral; tibia/fibula was examined in AP and lateral projections. FINDINGS: No evidence of any acute osseous pathology, joint dislocation, or soft tissue swelling is n oted. Soft tissue edema throughout the leg. On the anteriorly. This is seen bilaterally. No osseous e rosion. No subcutaneous gas visualized. IMPRESSION: 1. No evidence of acute fracture. 2. Bilateral soft tissue leg edema. No evidence for osseous erosion or subcutaneous changes gas.
[2023-07-14 15:37] LABS: HGB 11.2 gm/dL (11.4-16.0)
[2023-07-14] MEDS: HYDROcodone/APAP 5-325MG 1 EACH TAB PO STA (15:37)
[2023-07-14 15:41] LABS: ALT 36 U/L (4-34); AST 28 U/L (14-36); African American GFR (CKD) >90 (>60 ml/min/1.73 sqM); Albumin 3.2 g/dL (3.5-5.0); Alkaline Phosphatase 98 U/L (38-126); Anion Gap 3 mmol/L; Blood Urea Nitrogen 17 mg/dL (7-17); Calcium 8.3 mg/dL (8.4-10.2); Carbon Dioxide 32 mmol/L (22-30); Chloride 102 mmol/L (98-107); Glucose 106 mg/dL (74-99); Non-African American GFR(CKD) >90 (>60 ml/min/1.73 sqM); Potassium 4.1 mmol/L (3.5-5.1); Sodium 137 mmol/L (137-145); Total Bilirubin 0.5 mg/dL (0.2-1.3); Total Protein 5.7 g/dL (6.3-8.2)
[2023-07-14 15:44] LABS: NT-Pro-B-Type Natriuretic Pept 1420 pg/mL
[2023-07-14] MEDS ORDERED: NALOXONE 0.4 MG/ML 1 ML VIAL IV PRN (16:18)
[2023-07-14] MEDS ORDERED: SODIUM CHLORIDE 0.9% 1,000 ML IV SCH (16:30)
[2023-07-14] MEDS: ceFAZolin 1 GM in DEXTROSE/WATER 1 50ML.BAG IVPB SCH (16:44)
[2023-07-14] MEDS ORDERED: VANCOMYCIN IV PER PHARMACY 1 EACH MISC MISCELLANE PRN (16:53)
[2023-07-14] MEDS: ceFAZolin 1 GM in DEXTROSE/WATER 1 50ML.BAG IVPB STA (17:00)
[2023-07-14] MEDS ORDERED: DEXTROSE 50% SYRINGE 50 ML IVP PRN ×2 (17:07)
[2023-07-14] MEDS ORDERED: ACETAMINOPHEN TAB 325 MG TAB PO PRN (17:12)
--- NOTE | 2023-07-14 17:34 | P.HPIM ---
History of Present Illness H&P Date: 07/14/23 History of Presenting Illness: Patient is a pleasant 57-year-old female with a past medical history of chronic hypoxic respiratory failure resulting from COPD home oxygen dependent on 3L at all times, obstructive sleep apnea, chronic atrial fibrillation on anticoagulation with Eliquis, CAD with previous stent, chronic diastolic heart failure, hypertension, hyperlipidemia, and type II [id number] diabetes mellitus. She presented to the emergency department with a chief complaint of bilateral lower extremity swelling and pain. Patient reports she has had bilateral lower extremity swelling x 2 weeks progressively worsening and is now accompanied by severe pain and discomfort. She reports scraping her right leg a few days ago during a trip and fall incident and now having clear drainage from this area. Patient reports tripping and falling over her curb on 07/09/2023 upon returning home from her sleep study. Patient reports she was seen and evaluated at [facility] and was reportedly found to have multiple facial fractures and later discharged home. Patient denies experiencing any fevers, chills, diaphoresis, headache, lightheadedness, dizziness, chest pain, palpitations, increased or changes in her chronic shortness of breath or cough, or experiencing any other complaints at this time. Patient reports progressively worsening bilateral lower extremity edema and increased pain over the past 2 weeks progressively worsening over the past few days. She underwent full evaluation in the emergency department. Vital signs upon arrival show blood pressure 93/53, heart rate 114, respiratory rate 20, and SpO2 of 98% on 3 L. Labs completed and reviewed. CBC showing normocytic anemia with hemoglobin of 11.2 and normal WBC count of 6.9. BMP showing hypercarbia with bicarb of 32 otherwise normal findings. Lactic acid 0.6. Liver profile showing slightly elevated ALT of 36 otherwise normal findings. proBNP was 1420. Chest x-ray completed showing cardiomegaly and mild pulmonary vascular congestion. X-ray bilateral feet showing swelling over dorsal foot with no osseous erosion or evidence of osteomyelitis, no evidence for fracture. X-ray bilateral lower extremities tib/fib showing bilateral soft tissue leg edema with no evidence for osseous erosion or subcutaneous gas, negative for acute fracture. Patient to be admitted under our services for right lower extremity cellulitis along with mild diastolic CHF exacerbation. Patient being started on IV antibiotic vancomycin for treatment of right lower extremity cellulitis secondary to recent MRSA infection. Consultation placed to infectious disease. Review of systems: Pertinent positives and negatives as discussed in HPI, a complete review of systems was performed and all other systems are negative. Physical exam: Vital signs reviewed and stable. General: Nontoxic, no distress and appears stated age. Derm: Skin warm and dry, normal coloration for ethnicity. Head: Bruising and repaired laceration to right lateral forehead with [address] Eyes: Periorbital echymosis and swelling surrounding right eye, bruising to right side of face. Mouth: no lip lesions, mucus membranes moist Cardiovascular irregularly irregular with normal S1S2, no murmur, positive posterior tibial pulses bilaterally, and cap refill < 2 seconds. Lungs: Respirations even, regular, and unlabored on room air. Lungs diminished, no rhonchi, no rales, no wheezing, and no accessory muscle usage. Abdominal: soft, nontender to palpation, no guarding, no appreciable organomegaly Ext: ROM intact. No gross muscle atrophy, 2-3+ BLE pitting edema, no contract ures. Venous stasis discoloration to bilateral lower extremities, right lower extremity with open wound/abrasion to right chavez seeping clear serous liquid and moderate erythema surrounding concerning for cellulitis. Neuro: Speech clear, face symmetrical and CN II-XII grossly intact with no noted focal neuro deficits Psych: Alert and oriented to person, place, time, and situation. Appropriate and pleasant affect. Assessment and Plan of Care: Cellulitis right lower extremity Bilateral lower extremity edema with venous stasis dermatitis -Patient with cellulitis of right lower extremity recent infection with MRSA. Will place patient on vancomycin based on previous culture and sensitivity report pending blood culture and wound culture results. -Infectious disease consulted. -Blood cultures and wound cultures to be obtained -Continue vancomycin 2000 mg every 12 hours, monitor vancomycin trough and renal function closely to monitor for any signs of vancomycin associated renal toxicity. -Symptomatic care and pain management. -Obtain a stat ESR and CRP -Fall precautions HFpEF Chronic atrial fibrillation on anticoagulation with Eliquis CAD with previous stent Hypertension Hyperlipidemia -ProBNP 1420. -Hold oral Lasix and placed patient on IV diuresis with Lasix 40 mg twice daily. -Order placed for strict I's and O's and daily weights. -Telemetry monitoring. -Order placed for EKG to obtain baseline for this hospitalization -Patient to continue cardiac medication regimen with Eliquis 5 mg twice daily, atorvastatin 40 mg nightly, Cardizem 60 mg 3 times daily, lisinopril 5 mg daily, and metoprolol 75 mg twice daily. Chronic hypoxic respiratory failure resulting from COPD home oxygen dependent on 3L at all times Obstructive sleep apnea -Continue oxygen supplementation, patient's baseline oxygen needs 3 L at all times. May titrate as needed to maintain SpO2 equal to or greater than 90%. -Order placed for CPAP nightly. -Continue DuoNebs 4 times daily, Flonase 2 sprays each nostril daily, and Singulair 10 mg nightly. Type II [id number] diabetes mellitus. -Hold Trulicity and place patient on glycemic protocol with NovoLog sliding scale. -Hemoglobin A1c to be obtained. Data and imaging reviewed: As stated above in HPI. CODE STATUS: Full code DVT prophylaxis: Eliquis Anticipated discharge date: Clinical course to determine Anticipated discharge place: Clinical course to determine Patient was seen independently by Nurse Practitioner. This document was prepared using [employer] dictation software. Please allow for errors in supervisor mails while rare they do occur. This patient was seen independently by Luca PICKARD. I agree with the assessment and plan done by my colleague. Past Medical History Past Medical History: Atrial Fibrillation, Asthma, COPD, Hyperlipidemia, Hypertension, Myocardial Infarction (VT), Respiratory Disorder Additional Past Medical History / Comment(s): wears oxygen 3lnc when mobile Last Myocardial Infarction Date:: 2021 History of Any Multi-Drug Resistant Organisms: None Reported Past Surgical History: Heart Catheterization With Stent, Orthopedic Surgery Additional Past Surgical History / Comment(s): metal plate right arm, oral surgery fracture jawed,hx gallstones Past Anesthesia/Blood Transfusion Reactions: No Reported Reaction Additional Past Anesthesia/Blood Transfusion Reaction / Comment(s): No blood transfusion Date of Last Stent Placement:: 2021 Past Psychological History: Anxiety, Depression Smoking Status: Former smoker Past Alcohol Use History: None Reported Past Drug Use History: None Reported - Past Family History Mother Family Medical History: Cancer Additional Family Medical History / Comment(s): uterine, breast, lymph nodes Medications and Allergies Home Medications Medication Instructions Recorded Confirmed Type Apixaban [Eliquis] 5 mg PO BID 10/26/22 07/14/23 History Atorvastatin [Lipitor] 40 mg PO HS 10/26/22 07/14/23 History Cetirizine HCl 10 mg PO DAILY 10/26/22 07/14/23 History FLUoxetine HCL [PROzac] 40 mg PO DAILY@1200 10/26/22 07/14/23 History Folic Acid 1 mg PO DAILY 10/26/22 07/14/23 History Gabapentin [Neurontin] 300 mg PO BID 10/26/22 07/14/23 History HYDROcodone/APAP 5-325MG [[place] 1 tab PO TID 10/26/22 07/14/23 History 5-325] Mirtazapine [Remeron] 15 mg PO HS 10/26/22 07/14/23 History Montelukast [Singulair] 10 mg PO DAILY 10/26/22 07/14/23 History Dulaglutide [Trulicity] 1.5 mg SQ SA 06/21/23 07/14/23 History Ergocalciferol [Vitamin D2 (1250 1,250 mcg PO SA 06/21/23 07/14/23 History Mcg = [id number] Iu)] Ipratropium-Albuterol Nebulize 3 ml INHALATION RT-QID 06/21/23 07/14/23 History [Duoneb 0.5 mg-3 mg/3 ml Soln] Omeprazole 20 mg PO DAILY 06/21/23 07/14/23 History lisinopriL [Zestril] 5 mg PO DAILY 06/21/23 07/14/23 History Fluticasone Nasal [place] [Flonase 2 spray EA NOSTRIL DAILY ml 06/27/23 07/14/23 Rx Nasal [place]] Metoprolol Tartrate [Lopressor] 75 mg PO BID #180 tab 06/27/23 07/14/23 Rx guaiFENesin [Mucinex] 1,200 mg PO Q12HR tab 06/27/23 07/14/23 Rx Furosemide [Lasix] 40 mg PO DAILY 07/14/23 07/14/23 History Allergies Allergy/AdvReac Type Severity Reaction Status Date / Time ibuprofen Allergy Rash/Hives Verified 07/14/23 17:08 NSAIDS (Non-Steroidal Allergy Rash/Hives Verified 07/14/23 17:08 Anti-Inflamma tetracycline Allergy Rash/Hives Verified 07/14/23 17:08 Physical Exam Vitals: Vital Signs Pulse Resp BP Pulse Ox 07/14/23 14:21 107 H 20 118/105 99 Intake and Output 07/14/23 07/14/2324 06:59 14:59 22:59 Other: Weight 127.006 kg Results CBC & Chem 7: 07/15/23 05:33 07/15/23 05:33 Labs: Abnormal Lab Results - Last 24 Hours (Table) 07/14/23 07/14/23 07/14/23 Range/Units 14:58 14:58 14:58 Hgb 11.2 L D (11.4-16.0) gm/dL RDW 16.0 H (11.5-15.5) % Carbon Dioxide 32 H (22-30) mmol/L Glucose 106 H (74-99) mg/dL Plasma Lactic Acid Rom 0.6 L (0.7-2.0) mmol/L Calcium 8.3 L (8.4-10.2) mg/dL ALT 36 H (4-34) U/L Total Protein 5.7 L (6.3-8.2) g/dL Albumin 3.2 L (3.5-5.0) g/dL
[2023-07-14] MEDS: VANCOMYCIN 2,000 MG in SODIUM CHLORIDE 0.9% 500 ML 500 ML IVPB SCH (17:37)
[2023-07-14] MEDS: ERGOCALCIFEROL 1,250 MCG (50,000 IU) CAPSULE PO SCH (18:32)
[2023-07-14 19:00] LABS: Glucose,Whole Blood 163 mg/dL (70-110)
[2023-07-14] MEDS: IPRATROPIUM-ALBUTEROL 3 ML NEB INHALATION SCH (20:02)
[2023-07-14 20:30] LABS: Glucose,Whole Blood 136 mg/dL (70-110)
[2023-07-14] MEDS: INSULIN ASPART (NovoLOG) 100 UNIT/ML VIAL SQ SCH (21:50)
[2023-07-14] MEDS: METOPROLOL TARTRATE 25 MG TAB PO SCH (22:05)
[2023-07-14] MEDS: APIXABAN 5 MG TAB PO SCH (22:06)
[2023-07-14] MEDS: ATORVASTATIN 40 MG TAB PO SCH (22:06)
[2023-07-14] MEDS: guaiFENesin 600 MG TABLET.ER PO SCH (22:06)
[2023-07-14] MEDS: GABAPENTIN 300 MG CAP PO SCH (22:06)
[2023-07-14] MEDS: MIRTAZAPINE 15 MG TAB PO SCH (22:06)
[2023-07-14] MEDS: FUROSEMIDE 10 MG/ML 4 ML VIAL IV SCH (22:07)
[2023-07-14] MEDS: DILTIAZEM ORAL 60 MG TAB PO SCH (22:21)
[2023-07-15 05:54] LABS: Glucose,Whole Blood 113 mg/dL (70-110)
[2023-07-15] MEDS: PANTOPRAZOLE 40 MG TABLET PO SCH (06:03)
[2023-07-15] MEDS: MONTELUKAST 10 MG TAB PO SCH (07:49)
[2023-07-15] MEDS: lisinopriL 5 MG TAB PO SCH (07:49)
[2023-07-15] MEDS: FOLIC ACID 1 MG TAB PO SCH (07:50)
[2023-07-15] MEDS: LORATADINE 10 MG TAB PO SCH (07:50)
[2023-07-15] MEDS: FLUTICASONE 50MCG/SPRAY NASAL 16GM EA NOSTRIL SCH (08:57)
[2023-07-15 09:57] LABS: HCT 37.3 % (37.2-46.3); HGB 11.2 g/dL (12.0-15.0); MCH 26.9 pg (27.0-32.0); MCV 89.7 FL (80.0-97.0); Mean Platelet Volume 10.1 FL (9.5-12.2); NRBC Per 100 WBC 0 X 10*3/uL (0.00-0.01); Platelet Count 201 X 10*3/uL (140-440); RBC 4.16 X 10*6/uL (4.10-5.20); RDW 16.8 % (11.5-14.5)
[2023-07-15 10:04] LABS: ALT 32 U/L (8-44); AST 18 U/L (13-35); Albumin 3.5 g/dL (3.8-4.9); Albumin/Globulin Ratio 1.59 Ratio (1.60-3.17); Alkaline Phosphatase 81 U/L (41-126); BUN/Creat Ratio 24.86 Ratio (12.00-20.00); Blood Urea Nitrogen 17.4 mg/dL (9.0-27.0); Calcium 8.2 mg/dL (8.7-10.3); Chloride 101 mmol/L (96-109); Globulin 2.2 g/dL (1.6-3.3); Glucose 108 mg/dL (70-110); Potassium 4.4 mmol/L (3.5-5.5); Sodium 139 mmol/L (135-145); Total Bilirubin 0.4 mg/dL (0.3-1.2); Total Protein 5.7 g/dL (6.2-8.2)
[2023-07-15 11:35] LABS: Glucose,Whole Blood 116 mg/dL (70-110)
[2023-07-15] MEDS: FLUoxetine HCL 20 MG CAP PO SCH (12:03)
--- NOTE | 2023-07-15 15:29 | P.PN ---
Subjective Progress Note Date: 07/15/23 Hospital Course: Patient is a pleasant 57-year-old female with a past medical history of chronic hypoxic respiratory failure resulting from COPD home oxygen dependent on 3L at all times, obstructive sleep apnea, chronic atrial fibrillation on anticoagulation with Eliquis, CAD with previous stent, chronic diastolic heart failure, hypertension, hyperlipidemia, and type II [id number] diabetes mellitus. She presented to the emergency department with a chief complaint of bilateral lower extremity swelling and pain. Patient reports she has had bilateral lower extremity swelling x 2 weeks progressively worsening and is now accompanied by severe pain and discomfort. She reports scraping her right leg a few days ago during a trip and fall incident and now having clear drainage from this area. Patient reports tripping and falling over her curb on 07/09/2023 upon returning home from her sleep study. Patient reports she was s een and evaluated at [facility] and was reportedly found to have multiple facial fractures and later discharged home. Patient denies experiencing any fevers, chills, diaphoresis, headache, lightheadedness, dizziness, chest pain, palpitations, increased or changes in her chronic shortness of breath or cough, or experiencing any other complaints at this time. Patient reports progressively worsening bilateral lower extremity edema and increased pain over the past 2 weeks progressively worsening over the past few days. She underwent full evaluation in the emergency department. Vital signs upon arrival show blood pressure 93/53, heart rate 114, respiratory rate 20, and SpO2 of 98% on 3 L. Labs completed and reviewed. CBC showing normocytic anemia with hemoglobin of 11.2 and normal WBC count of 6.9. BMP showing hypercarbia with bicarb of 32 otherwise normal findings. Lactic acid 0.6. Liver profile showing slightly elevated ALT of 36 otherwise normal findings. proBNP was 1420. Chest x-ray completed showing cardiomegaly and mild pulmonary vascular congestion. X-ray bilateral feet showing swelling over dorsal foot with no osseous erosion or evidence of osteomyelitis, no evidence for fracture. X-ray bilateral lower extremities tib/fib showing bilateral soft tissue leg edema with no evidence for osseous erosion or subcutaneous gas, negative for acute fract ure. Patient to be admitted under our services for right lower extremity cellulitis along with mild diastolic CHF exacerbation. Patient being started on IV antibiotic vancomycin for treatment of right lower extremity cellulitis secondary to recent MRSA infection. Consultation placed to infectious disease. Physical exam: Patient seen and fully evaluated at bedside this morning. She was sitting in recliner chair reports continued pain to left lower extremity. Erythema seems to have some improvement since yesterday. Patient denies having any other complaints or needs at this time including headache, lightheadedness, dizziness, chest pain, palpitations, or shortness of breath. Vital signs reviewed and stable. General: Nontoxic, no distress and appears stated age. Derm: Skin warm and dry, normal coloration for ethnicity. Head: Bruising and repaired laceration to right lateral forehead with [address] Eyes: Periorbital echymosis and swelling surrounding right eye, bruising to right side of face. Mouth: no lip lesions, mucus membranes moist Cardiovascular irregularly irregular with normal S1S2, no murmur, positive posterior tibial pulses bilaterally, and cap refill < 2 seconds. Lungs: Respirations even, regular, and unlabored on room air. Lungs diminished, no rhonchi, no rales, no wheezing, and no accessory muscle usage. Abdominal: soft, nontender to palpation, no guarding, no appreciable organomegaly Ext: ROM intact. No gross muscle atrophy, 2-3+ BLE pitting edema, no con tractures. Venous stasis discoloration to bilateral lower extremities, right lower extremity with open wound/abrasion to right chavez seeping clear serous liquid and moderate erythema surrounding concerning for cellulitis. Neuro: Speech clear, face symmetrical and CN II-XII grossly intact with no noted focal neuro deficits Psych: Alert and oriented to person, place, time, and situation. Appropriate and pleasant affect. Assessment and Plan of Care: Cellulitis right lower extremity Bilateral lower extremity edema with venous stasis dermatitis -Patient with cellulitis of right lower extremity recent infection with MRSA. Will place patient on vancomycin based on previous culture and sensitivity report pending blood culture and wound culture results. -Infectious disease consulted, appreciate recommendations. -Blood cultures and wound cultures to be obtained -Continue vancomycin 2000 mg every 12 hours, monitor vancomycin trough and renal function closely to monitor for any signs of vancomycin associated renal toxicity. -Symptomatic care and pain management. -ESR 63 and CRP of 5.5. -Fall precautions HFpEF Chronic atrial fibrillation on anticoagulation with Eliquis CAD with previous stent Hypertension Hyperlipidemia -ProBNP 1420. -Hold oral Lasix and continue IV diuresis with Lasix 40 mg twice daily. -O continue strict I's and O's and daily weights. -EKG showing atrial fibrillation with a rapid ventricular rate at 106 bpm with T wave inversion in leads I, aVL, V5 and V6. -Continue telemetry monitoring. -Patient to continue cardiac medication regimen with Eliquis 5 mg twice daily, atorvastatin 40 mg nightly, Cardizem 60 mg 3 times daily, lisinopril 5 mg daily, and metoprolol 75 mg twice daily. -Reviewed echocardiogram report completed 06/21/2023 revealing a preserved EF of 50 to 55%. Chronic hypoxic respiratory failure resulting from COPD home oxygen dependent on 3L at all times Obstructive sleep apnea -Continue oxygen supplementation, patient's baseline oxygen needs 3 L at all times. May titrate as needed to maintain SpO2 equal to or greater than 90%. -Continue CPAP nightly. -Continue DuoNebs 4 times daily, Flonase 2 sprays each nostril daily, and Singulair 10 mg nightly. Type II [id number] diabetes mellitus. -Hold Trulicity and place patient on glycemic protocol with NovoLog sliding scale. -Hemoglobin A1c 7%. Data and imaging reviewed: Morning labs reviewed:. CBC showing stable normocytic anemia with hemoglobin of 11.2. BMP unremarkable. Liver profile showing no significant abnormalities. Hemoglobin A1c elevated at 7%. Vital signs reviewed. Blood pressure 101/72, heart rate 113, respiratory rate 18, temp 98.7 F, and SpO2 of 94% on 3 L. CODE STATUS: Full code DVT prophylaxis: Eliquis Anticipated discharge date: Clinical course to determine Anticipated discharge place: Clinical course to determine Patient was seen independently by Nurse Practitioner. This document was prepared using [employer] dictation software. Please allow for errors in database management system specialist while rare they do occur. This patient was seen independently by Luca PICKARD. I agree with the assessment and plan done by my colleague. Objective - Vital Signs Vital signs: Vital Signs Temp 98.7 F 07/15/23 06:47 Pulse 88 07/15/23 08:41 Resp 18 07/15/23 08:07 BP 101/72 07/15/23 06:47 Pulse Ox 94 L 07/15/23 06:47 FiO2 Intake & Output 07/14/23 07/15/23 07/15/23 18:59 06:59 18:59 Weight 127.006 kg 129.5 kg Other: Voiding Method Toilet Toilet # Voids 2 - Labs CBC & Chem 7: 07/15/23 05:33 07/15/23 05:33 Labs: Abnormal Lab Results - Last 24 Hours (Table) 07/14/23 07/14/23 07/14/23 Range/Units 14:58 14:58 14:58 Hgb 11.2 L D (11.4-16.0) gm/dL RDW 16.0 H (11.5-15.5) % ESR (0-30) mm/Hr Carbon Dioxide 32 H (22-30) mmol/L Glucose 106 H (74-99) mg/dL POC Glucose (mg/dL) (70-110) mg/dL Plasma Lactic Acid Rom 0.6 L (0.7-2.0) mmol/L Calcium 8.3 L (8.4-10.2) mg/dL ALT 36 H (4-34) U/L C-Reactive Protein (<1.0) mg/dL Total Protein 5.7 L (6.3-8.2) g/dL Albumin 3.2 L (3.5-5.0) g/dL 07/14/23 07/14/23 07/14/23 Range/Units 16:59 16:59 18:33 Hgb (11.4-16.0) gm/dL RDW (11.5-15.5) % ESR 63 H (0-30) mm/Hr Carbon Dioxide (22-30) mmol/L Glucose (74-99) mg/dL POC Glucose (mg/dL) 163 H (70-110) mg/dL Plasma Lactic Acid Rom (0.7-2.0) mmol/L Calcium (8.4-10.2) mg/dL ALT (4-34) U/L C-Reactive Protein 5.5 H (<1.0) mg/dL Total Protein (6.3-8.2) g/dL Albumin (3.5-5.0) g/dL 07/14/23 07/15/23 Range/Units 20:28 05:53 Hgb (11.4-16.0) gm/dL RDW (11.5-15.5) % ESR (0-30) mm/Hr Carbon Dioxide (22-30) mmol/L Glucose (74-99) mg/dL POC Glucose (mg/dL) 136 H 113 H (70-110) mg/dL Plasma Lactic Acid Rom (0.7-2.0) mmol/L Calcium (8.4-10.2) mg/dL ALT (4-34) U/L C-Reactive Protein (<1.0) mg/dL Total Protein (6.3-8.2) g/dL Albumin (3.5-5.0) g/dL
[2023-07-15] MEDS ORDERED: NYSTAT-TRIAMCIN 100,000-0.1 UNIT/GM-% OINT 30 GM TUBE TOPICAL SCH (16:37)
[2023-07-15 16:43] LABS: Glucose,Whole Blood 124 mg/dL (70-110)
[2023-07-15] MEDS: NYSTAT-TRIAMCIN 100,000-0.1 UNIT/GM-% CREAM 30 GM TUBE TOPICAL SCH ×2 (17:42→21:29)
[2023-07-15] MEDS: ceFAZolin 3 GM in SODIUM CHLORIDE 0.9% 100 ML IVPB SCH (17:46)
[2023-07-15] MEDS: HYDROcodone/APAP 5-325MG 1 EACH TAB PO PRN (17:51)
[2023-07-15 20:56] LABS: Glucose,Whole Blood 173 mg/dL (70-110)
--- NOTE | 2023-07-15 22:18 | P.CONS ---
History of Present Illness - Reason for Consult Consult date: 07/15/23 Right lower extremity cellulitis, recent MRSA infection Requesting physician: Kush Segovia - Chief Complaint Increasing swelling redness to lower extremity x days - History of Present Illness Patient is a 57-year-old female with a past medical history significant for hypertension hyperlipidemia COPD atrial fibrillation asthma [place] presenting to the hospital for evaluation of increasing swelling to bilateral lower extremity and this patient symptom of swelling has been going on for weeks however 2 days before presentation to the hospital patient noticed to having increasing redness to the lower leg especially the right leg and the feet area patient denies any history of any trauma has been complaining of increasing swelling to bilateral lower extremity along with redness as well as pain he describes the pain to be sharp moderate intensity without any radiation did have associated swelling redness no open wound or any drainage patient on presentation to the hospital was afebrile and no fever has been recorded subsequently patient was not tachycardic hypotensive or hypoxic did have a white count of 6.9 creatinine 0.7 liver enzymes are normal blood cultures obtained which are currently pending patient was started on vancomycin infectious disease was consulted for further management of antibiotic therapy Review of Systems Positive point and negatives has been mentioned in the HPI, complete review of systems was performed and all other systems are negative Past Medical History Past Medical History: Atrial Fibrillation, Asthma, COPD, Hyperlipidemia, Hypertension, Myocardial Infarction (VT), Respiratory Disorder Additional Past Medical History / Comment(s): wears oxygen 3lnc when mobile Last Myocardial Infarction Date:: 2021 History of Any Multi-Drug Resistant Organisms: None Reported Past Surgical History: Heart Catheterization With Stent, Orthopedic Surgery Additional Past Surgical History / Comment(s): metal plate right arm, oral surgery fracture jawed,hx gallstones Past Anesthesia/Blood Transfusion Reactions: No Reported Reaction Additional Past Anesthesia/Blood Transfusion Reaction / Comm: No blood transfusion Date of Last Stent Placement:: 2021 Past Psychological History: Anxiety, Depression Smoking Status: Former smoker Past Alcohol Use History: None Reported Past Drug Use History: None Reported - Past Family History Mother Family Medical History: Cancer Additional Family Medical History / Comment(s): uterine, breast, lymph nodes Medications and Allergies Home Medications Medication Instructions Recorded Confirmed Type Apixaban [Eliquis] 5 mg PO BID 10/26/22 07/14/23 History Atorvastatin [Lipitor] 40 mg PO HS 10/26/22 07/14/23 History Cetirizine HCl 10 mg PO DAILY 10/26/22 07/14/23 History FLUoxetine HCL [PROzac] 40 mg PO DAILY@1200 10/26/22 07/14/23 History Folic Acid 1 mg PO DAILY 10/26/22 07/14/23 History Gabapentin [Neurontin] 300 mg PO BID 10/26/22 07/14/23 History HYDROcodone/APAP 5-325MG [[place] 1 tab PO TID 10/26/22 07/14/23 History 5-325] Mirtazapine [Remeron] 15 mg PO HS 10/26/22 07/14/23 History Montelukast [Singulair] 10 mg PO DAILY 10/26/22 07/14/23 History Dulaglutide [Trulicity] 1.5 mg SQ SA 06/21/23 07/14/23 History Ergocalciferol [Vitamin D2 (1250 1,250 mcg PO SA 06/21/23 07/14/23 History Mcg = 36105 Iu)] Ipratropium-Albuterol Nebulize 3 ml INHALATION RT-QID 06/21/23 07/14/23 History [Duoneb 0.5 mg-3 mg/3 ml Soln] Omeprazole 20 mg PO DAILY 06/21/23 07/14/23 History lisinopriL [Zestril] 5 mg PO DAILY 06/21/23 07/14/23 History Fluticasone Nasal [place] [Flonase 2 spray EA NOSTRIL DAILY ml 06/27/23 07/14/23 Rx Nasal [place]] Metoprolol Tartrate [Lopressor] 75 mg PO BID #180 tab 06/27/23 07/14/23 Rx guaiFENesin [Mucinex] 1,200 mg PO Q12HR tab 06/27/23 07/14/23 Rx Cephalexin [Keflex] 500 mg PO Q6HR 10 Days #40 cap 07/17/23 Rx Diltiazem Oral [Cardizem*] 60 mg PO TID #90 tab 07/17/23 Rx Furosemide [Lasix] 40 mg PO BID@0900,1600 #60 tab 07/17/23 Rx Allergies Allergy/AdvReac Type Severity Reaction Status Date / Time ibuprofen Allergy Rash/Hives Verified 07/14/23 17:08 NSAIDS (Non-Steroidal Allergy Rash/Hives Verified 07/14/23 17:08 Anti-Inflamma tetracycline Allergy Rash/Hives Verified 07/14/23 17:08 Physical Exam Vitals: Vital Signs Temp Pulse Pulse Resp BP BP Pulse Ox 07/15/23 08:41 88 07/15/23 08:33 86 07/15/23 08:07 113 H 18 07/15/23 06:47 98.7 F 113 H 18 101/72 94 L 07/15/23 01:33 97.7 F 103 H 18 105/75 92 L 07/14/23 20:12 88 07/14/23 20:03 87 07/14/23 18:56 98.2 F 117 H 20 97/67 93 L 07/14/23 17:39 99 20 95/61 97 07/14/23 16:48 114 H 20 93/53 98 07/14/23 14:21 107 H 20 118/105 99 Intake and Output 07/14/23 07/15/23 07/15/23 22:59 06:59 14:59 Other: Voiding Method Toilet Toilet # Voids 2 Weight 127.006 kg 129.5 kg GENERAL DESCRIPTION: Middle-aged female lying in bed, no distress. No tachypnea or accessory muscle of respiration use. HEENT: Shows Pallor , no scleral icterus. Oral mucous membrane is dry. No pharyngeal erythema or thrush NECK: Trachea central, no thyromegaly. LUNGS: Unlabored breathing. Clear to auscultation anteriorly. No wheeze or crackle. HEART: S1, S2, regular rate and rhythm. No loud murmur ABDOMEN: Soft, no tenderness , guarding or rigidity, no organomegaly EXTREMITIES: Diffuse swelling to bilateral lower extremity with erythema especially to the right lower leg and dorsum aspect of the both feet no open wound or any drainage SKIN: No rash, no masses palpable. NEUROLOGICAL: The patient is awake, alert, oriented x3, mood and affect normal. Results CBC & Chem 7: 07/17/23 06:04 07/17/23 06:04 Labs: Abnormal Lab Results - Last 24 Hours (Table) 07/14/23 07/14/23 07/14/23 Range/Units 14:58 14:58 14:58 Hgb 11.2 L D (11.4-16.0) gm/dL MCH (27.0-32.0) pg MCHC (32.0-37.0) g/dL RDW 16.0 H (11.5-15.5) % ESR (0-30) mm/Hr Carbon Dioxide 32 H (22-30) mmol/L BUN/Creatinine Ratio (12.00-20.00) Ratio Glucose 106 H (74-99) mg/dL POC Glucose (mg/dL) (70-110) mg/dL Hemoglobin A1c (<=6.0) % Plasma Lactic Acid Rom 0.6 L (0.7-2.0) mmol/L Calcium 8.3 L (8.4-10.2) mg/dL ALT 36 H (4-34) U/L C-Reactive Protein (<1.0) mg/dL Total Protein 5.7 L (6.3-8.2) g/dL Albumin 3.2 L (3.5-5.0) g/dL Albumin/Globulin Ratio (1.60-3.17) Ratio 07/14/23 07/14/23 07/14/23 Range/Units 16:59 16:59 18:33 Hgb (11.4-16.0) gm/dL MCH (27.0-32.0) pg MCHC (32.0-37.0) g/dL RDW (11.5-15.5) % ESR 63 H (0-30) mm/Hr Carbon Dioxide (22-30) mmol/L BUN/Creatinine Ratio (12.00-20.00) Ratio Glucose (74-99) mg/dL POC Glucose (mg/dL) 163 H (70-110) mg/dL Hemoglobin A1c (<=6.0) % Plasma Lactic Acid Rom (0.7-2.0) mmol/L Calcium (8.4-10.2) mg/dL ALT (4-34) U/L C-Reactive Protein 5.5 H (<1.0) mg/dL Total Protein (6.3-8.2) g/dL Albumin (3.5-5.0) g/dL Albumin/Globulin Ratio (1.60-3.17) Ratio 07/14/23 07/15/23 07/15/23 Range/Units 20:28 05:33 05:33 Hgb 11.2 L (11.4-16.0) gm/dL MCH 26.9 L (27.0-32.0) pg MCHC 30.0 L (32.0-37.0) g/dL RDW 16.8 H (11.5-15.5) % ESR (0-30) mm/Hr Carbon Dioxide (22-30) mmol/L BUN/Creatinine Ratio (12.00-20.00) Ratio Glucose (74-99) mg/dL POC Glucose (mg/dL) 136 H (70-110) mg/dL Hemoglobin A1c 7.0 H (<=6.0) % Plasma Lactic Acid Rom (0.7-2.0) mmol/L Calcium (8.4-10.2) mg/dL ALT (4-34) U/L C-Reactive Protein (<1.0) mg/dL Total Protein (6.3-8.2) g/dL Albumin (3.5-5.0) g/dL Albumin/Globulin Ratio (1.60-3.17) Ratio 07/15/23 07/15/23 Range/Units 05:33 05:53 Hgb (11.4-16.0) gm/dL MCH (27.0-32.0) pg MCHC (32.0-37.0) g/dL RDW (11.5-15.5) % ESR (0-30) mm/Hr Carbon Dioxide (22-30) mmol/L BUN/Creatinine Ratio 24.86 H (12.00-20.00) Ratio Glucose (74-99) mg/dL POC Glucose (mg/dL) 113 H (70-110) mg/dL Hemoglobin A1c (<=6.0) % Plasma Lactic Acid Rom (0.7-2.0) mmol/L Calcium 8.2 L (8.4-10.2) mg/dL ALT (4-34) U/L C-Reactive Protein (<1.0) mg/dL Total Protein 5.7 L (6.3-8.2) g/dL Albumin 3.5 L (3.5-5.0) g/dL Albumin/Globulin Ratio 1.59 L (1.60-3.17) Ratio Assessment and Plan (1) Bilateral lower leg cellulitis Status: Acute Code(s): L03.116 - CELLULITIS OF LEFT LOWER LIMB; L03.115 - CELLULITIS OF RIGHT LOWER LIMB SNOMED Code(s): 063136770 Plan: 1patient presented to hospital with with increasing swelling to bilateral extremity with associated redness and pain in this patient who did have evidence of cellulitis in this patient with evidence of fluid overload and diffuse swelling redness likely streptococcal disease clinically doubt MRSA infection 2-marked area of the redness 3-we will apply Mycolog cream especially to the redness of the bilateral feet area and the patient will benefit from Haresh wrap from just above the toe to below the knee 4-discontinue vancomycin 5-start the patient on cefazolin 3 g every 8 hours We will follow on clinical condition and cultures to further adjust medication if needed Thank you for this consultation we will follow the patient along with you Dictation was produced using [employer] dictation software. please excuse any grammatical, word or spelling errors. Time with Patient: Greater than 30
[2023-07-16 05:55] LABS: Glucose,Whole Blood 115 mg/dL (70-110)
[2023-07-16 09:14] LABS: HCT 36.5 % (37.2-46.3); MCH 27.2 pg (27.0-32.0); MCHC 30.1 g/dL (32.0-37.0); MCV 90.3 FL (80.0-97.0); Mean Platelet Volume 10.2 FL (9.5-12.2); NRBC Per 100 WBC 0 X 10*3/uL (0.00-0.01); Platelet Count 203 X 10*3/uL (140-440); RBC 4.04 X 10*6/uL (4.10-5.20); RDW 16.7 % (11.5-14.5); WBC 5.76 X 10*3/uL (4.50-10.00)
[2023-07-16 11:13] LABS: ALT 26 U/L (8-44); AST 17 U/L (13-35); Albumin 3.6 g/dL (3.8-4.9); Albumin/Globulin Ratio 1.57 Ratio (1.60-3.17); Alkaline Phosphatase 82 U/L (41-126); Blood Urea Nitrogen 19.2 mg/dL (9.0-27.0); Calcium 8.6 mg/dL (8.7-10.3); Carbon Dioxide 29.8 mmol/L (21.6-31.8); Chloride 101 mmol/L (96-109); Globulin 2.3 g/dL (1.6-3.3); Glucose 105 mg/dL (70-110); Potassium 4.2 mmol/L (3.5-5.5); Sodium 140 mmol/L (135-145); Total Bilirubin 0.2 mg/dL (0.3-1.2); Total Protein 5.9 g/dL (6.2-8.2)
[2023-07-16 12:10] LABS: Glucose,Whole Blood 106 mg/dL (70-110)
--- NOTE | 2023-07-16 12:28 | P.PN ---
Subjective Progress Note Date: 07/16/23 Principal diagnosis: Reason for follow-up is bilateral lower extremity cellulitis Patient is a 57-year-old female with a past medical history significant for hypertension hyperlipidemia COPD atrial fibrillation asthma [place] presenting to the hospital for evaluation of increasing swelling to bilateral lower extremity and redness the patient was diagnosed with extensive cellulitis to bilateral lower extremity. On today's evaluation that is 07/16/2023,the patient remains to be afebrile, patient is on 3 L nasal cannula supplemental oxygen and denies any shortness of breath no chest pain or cough.Patient denies having any nausea or vomiting, no abdominal pain and no diarrhea has been reported still complaining of swelling to the bilateral lower extremity redness minimally decreased. Patient did have white count of 5.76, creatinine 0.6 blood and local cultures currently pending Objective - Vital Signs Vital signs: Vital Signs Temp 98.1 F 07/16/23 07:00 Pulse 86 07/16/23 08:43 Resp 13 07/16/23 07:00 BP 114/78 07/16/23 07:00 Pulse Ox 94 L 07/16/23 08:45 FiO2 Intake & Output 07/15/23 07/16/23 07/16/23 18:59 06:59 18:59 Intake Total 480 Balance 480 Weight 133 kg Intake: Oral 480 Other: Voiding Method Toilet Toilet - Exam GENERAL DESCRIPTION: Middle-aged female up in the chair in no distress RESPIRATORY SYSTEM: Unlabored breathing , decreased breath sounds at bases HEART: S1 S2 regular rate and rhythm , ABDOMEN: Soft , no tenderness EXTREMITIES: Diffuse swelling and redness to bilateral lower extremity some improvement to the left leg right still have extensive cellulitis - Labs CBC & Chem 7: 07/16/23 06:30 07/16/23 06:30 Labs: Abnormal Lab Results - Last 24 Hours (Table) 07/15/23 07/15/23 07/16/23 Range/Units 16:42 20:53 05:53 RBC (4.10-5.20) X 10*6/uL Hgb (12.0-15.0) g/dL Hct (37.2-46.3) % MCHC (32.0-37.0) g/dL RDW (11.5-14.5) % BUN/Creatinine Ratio (12.00-20.00) Ratio POC Glucose (mg/dL) 124 H 173 H 115 H (70-110) mg/dL Calcium (8.7-10.3) mg/dL Total Bilirubin (0.3-1.2) mg/dL Total Protein (6.2-8.2) g/dL Albumin (3.8-4.9) g/dL Albumin/Globulin Ratio (1.60-3.17) Ratio 07/16/23 07/16/23 Range/Units 06:30 06:30 RBC 4.04 L (4.10-5.20) X 10*6/uL Hgb 11.0 L (12.0-15.0) g/dL Hct 36.5 L (37.2-46.3) % MCHC 30.1 L (32.0-37.0) g/dL RDW 16.7 H (11.5-14.5) % BUN/Creatinine Ratio 32.00 H (12.00-20.00) Ratio POC Glucose (mg/dL) (70-110) mg/dL Calcium 8.6 L (8.7-10.3) mg/dL Total Bilirubin 0.2 L (0.3-1.2) mg/dL Total Protein 5.9 L (6.2-8.2) g/dL Albumin 3.6 L (3.8-4.9) g/dL Albumin/Globulin Ratio 1.57 L (1.60-3.17) Ratio Microbiology - Last 24 Hours (Table) 07/14/23 16:55 Blood Culture - Preliminary Blood 07/14/23 16:40 Blood Culture - Preliminary Blood 07/14/23 17:47 Gram Stain - Preliminary Leg - Right Wound Culture - Preliminary Assessment and Plan (1) Bilateral lower leg cellulitis Current Visit: Yes Status: Acute Code(s): L03.116 - CELLULITIS OF LEFT LOWER LIMB; L03.115 - CELLULITIS OF RIGHT LOWER LIMB SNOMED Code(s): 779145163 Plan: 1patient presented to hospital with with increasing swelling to bilateral extremity with associated redness and pain in this patient who did have evidence of cellulitis in this patient with evidence of fluid overload and diffuse swelling redness likely streptococcal disease clinically doubt MRSA infection 2-patient to continue with Mycolog cream especially to the redness of the bilateral feet area and the patient will benefit from Haresh wrap from just above the toe to below the knee 3patient still have extensive cellulitis to bilateral lower extremities with r ight leg and recommend keeping the patient IV antibiotics for the 24 to 48 hours by that time culture will also be finalized Dictation was produced using [employer] dictation software. please excuse any g rammatical, word or spelling errors. Time with Patient: Less than 30
--- NOTE | 2023-07-16 15:04 | P.PN ---
Subjective Progress Note Date: 07/16/23 Hospital Course: Patient is a pleasant 57-year-old female with a past medical history of chronic hypoxic respiratory failure resulting from COPD home oxygen dependent on 3L at all times, obstructive sleep apnea, chronic atrial fibrillation on anticoagulation with Eliquis, CAD with previous stent, chronic diastolic heart failure, hypertension, hyperlipidemia, and type II [id number] diabetes mellitus. She presented to the emergency department with a chief complaint of bilateral lower extremity swelling and pain. Patient reports she has had bilateral lower extremity swelling x 2 weeks progressively worsening and is now accompanied by severe pain and discomfort. She reports scraping her right leg a few days ago during a trip and fall incident and now having clear drainage from this area. Patient reports tripping and falling over her curb on 07/09/2023 upon returning home from her sleep study. Patient reports she was s een and evaluated at [facility] and was reportedly found to have multiple facial fractures and later discharged home. Patient denies experiencing any fevers, chills, diaphoresis, headache, lightheadedness, dizziness, chest pain, palpitations, increased or changes in her chronic shortness of breath or cough, or experiencing any other complaints at this time. Patient reports progressively worsening bilateral lower extremity edema and increased pain over the past 2 weeks progressively worsening over the past few days. She underwent full evaluation in the emergency department. Vital signs upon arrival show blood pressure 93/53, heart rate 114, respiratory rate 20, and SpO2 of 98% on 3 L. Labs completed and reviewed. CBC showing normocytic anemia with hemoglobin of 11.2 and normal WBC count of 6.9. BMP showing hypercarbia with bicarb of 32 otherwise normal findings. Lactic acid 0.6. Liver profile showing slightly elevated ALT of 36 otherwise normal findings. proBNP was 1420. Chest x-ray completed showing cardiomegaly and mild pulmonary vascular congestion. X-ray bilateral feet showing swelling over dorsal foot with no osseous erosion or evidence of osteomyelitis, no evidence for fracture. X-ray bilateral lower extremities tib/fib showing bilateral soft tissue leg edema with no evidence for osseous erosion or subcutaneous gas, negative for acute fract ure. Patient to be admitted under our services for right lower extremity cellulitis along with mild diastolic CHF exacerbation. Patient being started on IV antibiotic vancomycin for treatment of right lower extremity cellulitis secondary to recent MRSA infection. Consultation placed to infectious disease. Physical exam: Patient seen and fully evaluated at bedside this morning. Bilateral lower extremities wrapped with Haresh dressing. Patient has had improvement of swelling. She currently reports continued pain to lower extremities. Discussed with infectious disease, he is recommending an additional day of IV antibiotics and states he will reevaluate tomorrow prior to clearing patient for discharge. Vital signs reviewed and stable. General: Nontoxic, no distress and appears stated age. Derm: Skin warm and dry, normal coloration for ethnicity. Head: Bruising and repaired laceration to right lateral forehead with [address] Eyes: Periorbital echymosis and swelling surrounding right eye, bruising to right side of face. Mouth: no lip lesions, mucus membranes moist Cardiovascular irregularly irregular with normal S1S2, no murmur, positive posterior tibial pulses bilaterally, and cap refill < 2 seconds. Lungs: Respirations even, regular, and unlabored on room air. Lungs diminished, no rhonchi, no rales, no wheezing, and no accessory muscle usage. Abdominal: soft, nontender to palpation, no guarding, no appreciable organomegaly Ext: ROM intact. No gross muscle atrophy, 2+ BLE pitting edema, no contractures. Bilateral lower extremities wrapped with Haresh dressing. Neuro: Speech clear, face symmetrical and CN II-XII grossly intact with no noted focal neuro deficits Psych: Alert and oriented to person, place, time, and situation. Appropriate and pleasant affect. Assessment and Plan of Care: Cellulitis right lower extremity Bilateral lower extremity edema with venous stasis dermatitis -Blood cultures showing no growth to date -Wound culture also negative showing no growth. -Infectious disease consulted, discontinued vancomycin and started patient on cefazolin and recommending an additional day of IV antibiotics. -Continue cefazolin 3 g IVPB every 8 hours. -Symptomatic care and pain management. -ESR 63 and CRP of 5.5. -Fall precautions HFpEF Chronic atrial fibrillation on anticoagulation with Eliquis CAD with previous stent Hypertension Hyperlipidemia -ProBNP 1420. -Hold oral Lasix and continue IV diuresis with Lasix 40 mg twice daily. -Continue strict I's and O's and daily weights. -EKG showing atrial fibrillation with a rapid ventricular rate at 106 bpm with T wave inversion in leads I, aVL, V5 and V6. -Continue telemetry monitoring. -Patient to continue cardiac medication regimen with Eliquis 5 mg twice daily, atorvastatin 40 mg nightly, Cardizem 60 mg 3 times daily, lisinopril 5 mg daily, and metoprolol 75 mg twice daily. -Reviewed echocardiogram report completed 06/21/2023 revealing a preserved EF of 50 to 55%. Chronic hypoxic respiratory failure resulting from COPD home oxygen dependent on 3L at all times Obstructive sleep apnea -Continue oxygen supplementation, patient's baseline oxygen needs 3 L at all times. May titrate as needed to maintain SpO2 equal to or greater than 90%. -Continue CPAP nightly. -Continue DuoNebs 4 times daily, Flonase 2 sprays each nostril daily, and Singulair 10 mg nightly. Type II [id number] diabetes mellitus. -Hold Trulicity and place patient on glycemic protocol with NovoLog sliding scale. -Hemoglobin A1c 7%. Data and imaging reviewed: Morning labs reviewed:. CBC showing stable normocytic anemia with hemoglobin of 11.0. BMP unremarkable. Liver profile showing no significant abnormalities. Vital signs reviewed. Blood pressure 114/78, heart rate 89, respiratory rate 13, temp 98.1 F, and SpO2 of 94% on baseline 3 L O2. CODE STATUS: Full code DVT prophylaxis: Eliquis Anticipated discharge date: Likely tomorrow morning Anticipated discharge place: Home with home care Patient was seen independently by Nurse Practitioner. This document was prepared using [employer] dictation software. Please allow for errors in wheel cleaner while rare they do occur. This patient was seen independently by my colleague Luca PICKARD. I agree with the assessment and plan. Objective - Vital Signs Vital signs: Vital Signs Temp 98.1 F 07/16/23 07:00 Pulse 89 07/16/23 07:00 Resp 13 07/16/23 07:00 BP 114/78 07/16/23 07:00 Pulse Ox 94 L 07/16/23 07:00 FiO2 Intake & Output 07/15/23 07/16/23 07/16/23 18:59 06:59 18:59 Weight 133 kg Other: Voiding Method Toilet Toilet - Labs CBC & Chem 7: 07/17/23 06:04 07/17/23 06:04 Labs: Abnormal Lab Results - Last 24 Hours (Table) 07/15/23 07/15/23 07/15/23 Range/Units 05:33 05:33 05:33 Hgb 11.2 L (12.0-15.0) g/dL MCH 26.9 L (27.0-32.0) pg MCHC 30.0 L (32.0-37.0) g/dL RDW 16.8 H (11.5-14.5) % BUN/Creatinine Ratio 24.86 H (12.00-20.00) Ratio POC Glucose (mg/dL) (70-110) mg/dL Hemoglobin A1c 7.0 H (<=6.0) % Calcium 8.2 L (8.7-10.3) mg/dL Total Protein 5.7 L (6.2-8.2) g/dL Albumin 3.5 L (3.8-4.9) g/dL Albumin/Globulin Ratio 1.59 L (1.60-3.17) Ratio 07/15/23 07/15/23 07/15/23 Range/Units 11:34 16:42 20:53 Hgb (12.0-15.0) g/dL MCH (27.0-32.0) pg MCHC (32.0-37.0) g/dL RDW (11.5-14.5) % BUN/Creatinine Ratio (12.00-20.00) Ratio POC Glucose (mg/dL) 116 H 124 H 173 H (70-110) mg/dL Hemoglobin A1c (<=6.0) % Calcium (8.7-10.3) mg/dL Total Protein (6.2-8.2) g/dL Albumin (3.8-4.9) g/dL Albumin/Globulin Ratio (1.60-3.17) Ratio 07/16/23 Range/Units 05:53 Hgb (12.0-15.0) g/dL MCH (27.0-32.0) pg MCHC (32.0-37.0) g/dL RDW (11.5-14.5) % BUN/Creatinine Ratio (12.00-20.00) Ratio POC Glucose (mg/dL) 115 H (70-110) mg/dL Hemoglobin A1c (<=6.0) % Calcium (8.7-10.3) mg/dL Total Protein (6.2-8.2) g/dL Albumin (3.8-4.9) g/dL Albumin/Globulin Ratio (1.60-3.17) Ratio - Last 24 Hours (Table) 07/14/23 16:55 Blood Culture - Preliminary Blood 07/14/23 16:40 Blood Culture - Preliminary Blood 07/14/23 17:47 Gram Stain - Preliminary Leg - Right Wound Culture - Preliminary
[2023-07-16 16:45] LABS: Glucose,Whole Blood 129 mg/dL (70-110)
[2023-07-16 20:51] LABS: Glucose,Whole Blood 112 mg/dL (70-110)
[2023-07-17 05:39] LABS: Glucose,Whole Blood 168 mg/dL (70-110)
[2023-07-17 07:54] VITALS: BP 115/58; RESP 19; TEMP 97.9
[2023-07-17 09:15] VITALS: PULSE 92
--- NOTE | 2023-07-17 11:27 | P.DS ---
Providers Date of admission: 07/17/23 08:10 Expected date of discharge: 07/17/23 Attending physician: Ana Luisa Jernigan MD Consults: 07/14/23 16:57 Consult Physician Routine Consulting Provider: Chance Vargas Consult Reason/Comments: RLE cellulitis, Recent MRSSA infection resp. Do you want consulting provider notified?: Yes Primary care physician: Sugey Chester MD Hospital Course: Discharge Diagnosis: Right lower extremity cellulitis Mild HFpEF exacerbation Bilateral lower extremity edema with venous stasis dermatitis Hypertension Chronic A-fib on anticoagulation Chronic hypoxic respiratory failure on 3 L COPD, not in exacerbation Type 2 diabetes Hospital Course: Patient is a pleasant 57-year-old female with a past medical history of chronic hypoxic respiratory failure resulting from COPD home oxygen dependent on 3L at all times, obstructive sleep apnea, chronic atrial fibrillation on anticoagulation with Eliquis, CAD with previous stent, chronic diastolic heart failure, hypertension, hyperlipidemia, and type II [id number] diabetes mellitus. She presented to the emergency department with a chief complaint of bilateral lower extremity swelling and pain. Patient reports she has had bilateral lower extremity swelling x 2 weeks progressively worsening and is now accompanied by severe pain and discomfort. She reports scraping her right leg a few days ago during a trip and fall incident and now having clear drainage from this area. Patient reports tripping and falling over her curb on 07/09/2023 upon returning home from her sleep study. Patient reports she was seen and evaluated at [facility] and was reportedly found to have multiple facial fractures and later discharged home. Patient denies experiencing any fevers, chills, diaphoresis, headache, lightheadedness, dizziness, chest pain, palpitations, increased or changes in her chronic shortness of breath or cough, or experiencing any other complaints at this time. Patient reports progressively worsening bilateral lower extremity edema and increased pain over the past 2 weeks progressively worsening over the past few days. She underwent full evaluation in the emergency department. Vital signs upon arrival show blood pressure 93/53, heart rate 114, respiratory rate 20, and SpO2 of 98% on 3 L. Labs completed and reviewed. CBC showing normocytic anemia with hemoglobin of 11.2 and normal WBC count of 6.9. BMP showing hypercarbia with bicarb of 32 otherwise normal findings. Lactic acid 0.6. Liver profile showing slightly elevated ALT of 36 otherwise normal findings. proBNP was 1420. Chest x-ray completed showing cardiomegaly and mild pulmonary vascular congestion. X-ray bilateral feet showing swelling over dorsal foot with no osseous erosion or evidence of osteomyelitis, no evidence for fracture. X-ray bilateral lower extremities tib/fib showing bilateral soft tissue leg edema with no evidence for osseous erosion or subcutaneous gas, negative for acute fracture. Patient to be admitted under our services for right lower extremity cellulitis along with mild diastolic CHF exacerbation. Patient was started on IV antibiotics and IV Lasix. ID was consulted. Symptoms improved. Respiratory function stable. Patient being discharged home on oral antibiotics and oral Lasix. Follow-up with PCP and cardiology. Patient seen and examined at bedside. Vital signs reviewed and stable. General: Nontoxic, no distress and appears stated age. Derm: Skin warm and dry, normal coloration for ethnicity. Head: Bruising and repaired laceration to right lateral forehead with [address] Eyes: Periorbital echymosis and swelling surrounding right eye, bruising to right side of face. Mouth: no lip lesions, mucus membranes moist Cardiovascular irregularly irregular with normal S1S2, no murmur, positive posterior tibial pulses bilaterally, and cap refill < 2 seconds. Lungs: Respirations even, regular, and unlabored on room air. Lungs diminished, no rhonchi, no rales, no wheezing, and no accessory muscle usage. Abdominal: soft, nontender to palpation, no guarding, no appreciable organomegaly Ext: ROM intact. No gross muscle atrophy, 2+ BLE pitting edema, no contractures. Bilateral lower extremities wrapped with Haresh dressing. Neuro: Speech clear, face symmetrical and CN II-XII grossly intact with no noted focal neuro deficits Psych: Alert and oriented to person, place, time, and situation. Appropriate and pleasant affect. A total of 33 minutes of time were spent preparing this complex discharge summary. Patient was discharged on 07/17/2023 at 1124. Patient Condition at Discharge: Stable Plan - Discharge Summary Discharge Rx Participant: No New Discharge Prescriptions: New Cephalexin [Keflex] 500 mg PO Q6HR 10 Days #40 cap Diltiazem Oral [Cardizem*] 60 mg PO TID #90 tab Furosemide [Lasix] 40 mg PO BID@0900,1600 #60 tab Continue HYDROcodone/APAP 5-325MG [[place] 5-325] 1 tab PO TID Cetirizine HCl 10 mg PO DAILY Apixaban [Eliquis] 5 mg PO BID Atorvastatin [Lipitor] 40 mg PO HS Dulaglutide [Trulicity] 1.5 mg SQ SA Ergocalciferol [Vitamin D2 (1250 Mcg = 31901 Iu)] 1,250 mcg PO SA lisinopriL [Zestril] 5 mg PO DAILY Omeprazole 20 mg PO DAILY Metoprolol Tartrate [Lopressor] 75 mg PO BID #180 tab Folic Acid 1 mg PO DAILY FLUoxetine HCL [PROzac] 40 mg PO DAILY@1200 Gabapentin [Neurontin] 300 mg PO BID Mirtazapine [Remeron] 15 mg PO HS Montelukast [Singulair] 10 mg PO DAILY Ipratropium-Albuterol Nebulize [Duoneb 0.5 mg-3 mg/3 ml Soln] 3 ml INHALATION RT-QID Fluticasone Nasal [place] [Flonase Nasal [place]] 2 spray EA NOSTRIL DAILY ml guaiFENesin [Mucinex] 1,200 mg PO Q12HR tab Discontinued Furosemide [Lasix] 40 mg PO DAILY Discharge Medication List Apixaban [Eliquis] 5 mg PO BID 10/26/22 [History] Atorvastatin [Lipitor] 40 mg PO HS 10/26/22 [History] Cetirizine HCl 10 mg PO DAILY 10/26/22 [History] FLUoxetine HCL [PROzac] 40 mg PO DAILY@1200 10/26/22 [History] Folic Acid 1 mg PO DAILY 10/26/22 [History] Gabapentin [Neurontin] 300 mg PO BID 10/26/22 [History] HYDROcodone/APAP 5-325MG [[place] 5-325] 1 tab PO TID 10/26/22 [History] Mirtazapine [Remeron] 15 mg PO HS 10/26/22 [History] Montelukast [Singulair] 10 mg PO DAILY 10/26/22 [History] Dulaglutide [Trulicity] 1.5 mg SQ SA 06/21/23 [History] Ergocalciferol [Vitamin D2 (1250 Mcg = 61814 Iu)] 1,250 mcg PO SA 06/21/23 [History] Ipratropium-Albuterol Nebulize [Duoneb 0.5 mg-3 mg/3 ml Soln] 3 ml INHALATION RT-QID 06/21/23 [History] Omeprazole 20 mg PO DAILY 06/21/23 [History] lisinopriL [Zestril] 5 mg PO DAILY 06/21/23 [History] Fluticasone Nasal [place] [Flonase Nasal [place]] 2 spray EA NOSTRIL DAILY ml 06/27/23 [Rx] Metoprolol Tartrate [Lopressor] 75 mg PO BID #180 tab 06/27/23 [Rx] guaiFENesin [Mucinex] 1,200 mg PO Q12HR tab 06/27/23 [Rx] Cephalexin [Keflex] 500 mg PO Q6HR 10 Days #40 cap 07/17/23 [Rx] Diltiazem Oral [Cardizem*] 60 mg PO TID #90 tab 07/17/23 [Rx] Furosemide [Lasix] 40 mg PO BID@0900,1600 #60 tab 07/17/23 [Rx] Follow up Appointment(s)/Referral(s): Sugey Chester MD [Primary Care Provider] - 1-2 days Patient Instructions/Handouts: Heart Failure (DC), Cellulitis (GEN) Activity/Diet/Wound Care/Special Instructions: Please see your PCP and purse maker. Discharge Disposition: HOME SELF-CARE
[2023-07-17 12:51] LABS: HCT 37.5 % (37.2-46.3); HGB 11.1 g/dL (12.0-15.0); MCH 27.5 pg (27.0-32.0); MCHC 29.6 g/dL (32.0-37.0); MCV 93.1 FL (80.0-97.0); NRBC Per 100 WBC 0 X 10*3/uL (0.00-0.01); Platelet Count 218 X 10*3/uL (140-440); RBC 4.03 X 10*6/uL (4.10-5.20); RDW 16.7 % (11.5-14.5); WBC 4.89 X 10*3/uL (4.50-10.00)
[2023-07-17 13:12] LABS: ALT 22 U/L (8-44); AST 16 U/L (13-35); Albumin 3.7 g/dL (3.8-4.9); Albumin/Globulin Ratio 1.61 Ratio (1.60-3.17); Alkaline Phosphatase 92 U/L (41-126); Blood Urea Nitrogen 17.4 mg/dL (9.0-27.0); Chloride 99 mmol/L (96-109); Globulin 2.3 g/dL (1.6-3.3); Glucose 99 mg/dL (70-110); Potassium 4.4 mmol/L (3.5-5.5); Sodium 140 mmol/L (135-145); Total Bilirubin 0.2 mg/dL (0.3-1.2)
--- NOTE | 2023-07-17 13:28 | P.PN ---
Subjective Progress Note Date: 07/17/23 Principal diagnosis: Reason for follow-up is bilateral lower extremity cellulitis Patient is a 57-year-old female with a past medical history significant for hypertension hyperlipidemia COPD atrial fibrillation asthma IN presenting to the hospital for evaluation of increasing swelling to bilateral lower extremity and redness the patient was diagnosed with extensive cellulitis to bilateral lower extremity. On today's evaluation that is 07/17/2023, the patient continues to be afebrile, the patient is on 4 L nasal cannula oxygen and breathing comfortably, The patien t denies having any chest pain or cough, the patient denies having any abdominal pain no vomiting or any diarrhea has been reported by the nursing staff, pain and swelling to the lower extremity has decreased in intensity. The patient did have white count of 4.89, creatinine 0.6 Objective - Vital Signs Vital signs: Vital Signs Temp 97.9 F 07/17/23 07:00 Pulse 92 07/17/23 09:03 Resp 19 07/17/23 07:00 BP 115/58 07/17/23 07:00 Pulse Ox 97 07/17/23 09:03 FiO2 Intake & Output 07/16/23 07/17/23 07/17/23 18:59 06:59 18:59 Intake Total 1080 Balance 1080 Weight 131.7 kg Intake: Oral 1080 Other: Voiding Method Toilet # Voids 3 - Exam GENERAL DESCRIPTION: Middle-aged female up in the chair in no distress RESPIRATORY SYSTEM: Unlabored breathing , decreased breath sounds at bases HEART: S1 S2 regular rate and rhythm , ABDOMEN: Soft , no tenderness EXTREMITIES: Diffuse swelling and redness to bilateral lower extremity which has slightly decreased in intensity - Labs CBC & Chem 7: 07/17/23 06:04 07/17/23 06:04 Labs: Abnormal Lab Results - Last 24 Hours (Table) 07/16/23 07/16/23 07/17/23 Range/Units 16:43 20:49 05:36 POC Glucose (mg/dL) 129 H 112 H 168 H (70-110) mg/dL Microbiology - Last 24 Hours (Table) 07/14/23 17:47 Anaerobic Culture - Preliminary Leg - Right 07/14/23 16:55 Blood Culture - Preliminary Blood 07/14/23 16:40 Blood Culture - Preliminary Blood 07/14/23 17:47 Gram Stain - Final Leg - Right Wound Culture - Final Assessment and Plan (1) Bilateral lower leg cellulitis Current Visit: Yes Status: Acute Code(s): L03.116 - CELLULITIS OF LEFT LOWER LIMB; L03.115 - CELLULITIS OF RIGHT LOWER LIMB SNOMED Code(s): 676620339 Plan: 1patient presented to hospital with with increasing swelling to bilateral extremity with associated redness and pain in this patient who did have evidence of cellulitis in this patient with evidence of fluid overload and diffuse swelling redness likely streptococcal disease clinically doubt MRSA infection 2-patient to continue with Mycolog cream especially to the redness of the bilateral feet area and the patient will benefit from Haresh wrap from just above t he toe to below the knee 3patient did have some improvement to the lower extremity cellulitis and the patient insisted on going home we will consider finish therapy with oral Keflex discussed with admitting team Dictation was produced using [employer] dictation software. please excuse any grammatical, word or spelling errors. Time with Patient: Less than 30
[2023-07-17] MEDS ORDERED: FUROSEMIDE 40 MG TAB PO SCH (16:00)
[2023-07-17] MEDS ORDERED: TRIAMCINOLONE 0.1% CREAM 80 GM TUBE TOPICAL SCH (21:00)
[2023-07-17] MEDS ORDERED: NYSTATIN 100,000UNIT/GM CREAM 30 GM TUBE TOPICAL SCH (21:00)
== END 2023-07-17 14:20 | disposition home or self-care (01) | DRG 383 ==
LOC: EC 14:19 → 4SSUR 17:04 → OBSVTOIN 07-17 08:10
PROVIDERS: ADMIT Family Medicine; ATTEND Family Medicine
DX: L03.116 Cellulitis of left lower limb (principal); L03.115 Cellulitis of right lower limb; Z79.01 Long term (current) use of anticoagulants; Z68.42 Body mass index [BMI] 45.0-49.9, adult; E66.01 Morbid (severe) obesity due to excess calories; Z79.899 Other long term (current) drug therapy; Z79.84 Long term (current) use of oral hypoglycemic drugs; Z95.5 Presence of coronary angioplasty implant and graft; Z86.14 Personal history of Methicillin resistant Staphylococcus aureus infection; I48.0 Paroxysmal atrial fibrillation; Z99.81 Dependence on supplemental oxygen; J96.11 Chronic respiratory failure with hypoxia; I87.2 Venous insufficiency (chronic) (peripheral); J44.9 Chronic obstructive pulmonary disease, unspecified; I25.2 Old myocardial infarction; I48.20 Chronic atrial fibrillation, unspecified; I50.33 Acute on chronic diastolic (congestive) heart failure; I25.10 Atherosclerotic heart disease of native coronary artery without angina pectoris; I11.0 Hypertensive heart disease with heart failure; F41.9 Anxiety disorder, unspecified; F32.A Depression, unspecified; D64.9 Anemia, unspecified; Z88.6 Allergy status to analgesic agent; G47.33 Obstructive sleep apnea (adult) (pediatric); Z88.1 Allergy status to other antibiotic agents; Z91.81 History of falling; E78.5 Hyperlipidemia, unspecified
CPT/HCPCS: 36415; 71045; 80053; 83036; 83605; 83735; 83880; 85025; 85027; 85652; 86140; 87040; 87070; 87075; 87205; 93005; 94640; 94660; 94760; 96365; 99285

== ENCOUNTER 2023-07-22 20:50 | Inpatient (IN) | payer OTHER ==
--- NOTE | 2023-07-22 21:12 | ED ---
General Adult HPI - General Chief complaint: Shortness of Breath Stated complaint: Shortness of Breath Time Seen by Provider: 07/22/23 21:01 Source: patient, EMS, RN notes reviewed, old records reviewed Mode of arrival: EMS Limitations: no limitations - History of Present Illness Initial comments: 57-year-old female history of congestive heart failure, COPD, obesity associated hypoventilation presenting with dyspnea. Patient states that she has had low oxygenation at home in the 80s. She has been home for the past 5 days. Recently discharged from the hospital with difficulty breathing and lower extremity cellulitis. She denies fever. Denies central chest pain. She reports cough. She also reports increased erythema to the right lower extremity at the site of known cellulitis. - Related Data Home Medications Medication Instructions Recorded Confirmed Apixaban [Eliquis] 5 mg PO BID 10/26/22 07/14/23 Atorvastatin [Lipitor] 40 mg PO HS 10/26/22 07/14/23 Cetirizine HCl 10 mg PO DAILY 10/26/22 07/14/23 FLUoxetine HCL [PROzac] 40 mg PO DAILY@1200 10/26/22 07/14/23 Folic Acid 1 mg PO DAILY 10/26/22 07/14/23 Gabapentin [Neurontin] 300 mg PO BID 10/26/22 07/14/23 HYDROcodone/APAP 5-325MG [[place] 1 tab PO TID 10/26/22 07/14/23 5-325] Mirtazapine [Remeron] 15 mg PO HS 10/26/22 07/14/23 Montelukast [Singulair] 10 mg PO DAILY 10/26/22 07/14/23 Dulaglutide [Trulicity] 1.5 mg SQ SA 06/21/23 07/14/23 Ergocalciferol [Vitamin D2 (1250 1,250 mcg PO SA 06/21/23 07/14/23 Mcg = 88856 Iu)] Ipratropium-Albuterol Nebulize 3 ml INHALATION RT-QID 06/21/23 07/14/23 [Duoneb 0.5 mg-3 mg/3 ml Soln] Omeprazole 20 mg PO DAILY 06/21/23 07/14/23 lisinopriL [Zestril] 5 mg PO DAILY 01/25/24 02/17/24 Previous Rx's Medication Instructions Recorded Fluticasone Nasal [place] [Flonase 2 spray EA NOSTRIL DAILY ml 06/27/23 Nasal [place]] Metoprolol Tartrate [Lopressor] 75 mg PO BID #180 tab 06/27/23 guaiFENesin [Mucinex] 1,200 mg PO Q12HR tab 06/27/23 Cephalexin [Keflex] 500 mg PO Q6HR 10 Days #40 cap 07/17/23 Diltiazem Oral [Cardizem*] 60 mg PO TID #90 tab 07/17/23 Furosemide [Lasix] 40 mg PO BID@0900,1600 #60 tab 07/17/23 Allergies Allergy/AdvReac Type Severity Reaction Status Date / Time ibuprofen Allergy Rash/Hives Verified 07/14/23 17:08 NSAIDS (Non-Steroidal Allergy Rash/Hives Verified 07/14/23 17:08 Anti-Inflamma tetracycline Allergy Rash/Hives Verified 07/14/23 17:08 Review of Systems ROS Statement: Those systems with pertinent positive or pertinent negative responses have been documented in the HPI. ROS Other: All systems not noted in ROS Statement are negative. Past Medical History Past Medical History: Atrial Fibrillation, Asthma, COPD, Hyperlipidemia, Hyper tension, Myocardial Infarction ([place]), Respiratory Disorder Additional Past Medical History / Comment(s): wears oxygen 3lnc when mobile Last Myocardial Infarction Date:: 2021 History of Any Multi-Drug Resistant Organisms: None Reported Past Surgical History: Heart Catheterization With Stent, Orthopedic Surgery Additional Past Surgical History / Comment(s): metal plate right arm, oral surgery fracture jawed,hx gallstones Past Anesthesia/Blood Transfusion Reactions: No Reported Reaction Additional Past Anesthesia/Blood Transfusion Reaction / Comment(s): No blood transfusion Date of Last Stent Placement:: 2021 Past Psychological History: Anxiety, Depression Smoking Status: Former smoker Past Alcohol Use History: None Reported Past Drug Use History: None Reported - Past Family History Mother Family Medical History: Cancer Additional Family Medical History / Comment(s): uterine, breast, lymph nodes General Exam General appearance: alert, in no apparent distress Eye exam: Present: periorbital swelling (And ecchymosis) Respiratory exam: Present: wheezes, decreased breath sounds Cardiovascular Exam: Present: regular rate, normal rhythm GI/Abdominal exam: Present: soft, distended. Absent: tenderness, guarding Extremities exam: Present: pedal edema, other (Erythema to the right anterior chavez, no crepitus, no fluctuance) Neurological exam: Present: alert Psychiatric exam: Present: normal affect, normal mood Skin exam: Present: warm Course Vital Signs 07/22/23 20:56 Temperature 98.5 F Pulse Rate 103 H Respiratory 22 Rate Blood Pressure 113/74 O2 Sat by Pulse 93 L Oximetry Medical Decision Making - Medical Decision Making Was pt. sent in by a medical professional or institution (, PA, ROLL SCALE MAN, urgent care, hospital, or [facility]...) When possible be specific @ -No Did you speak to anyone other than the patient for history (EMS, parent, family, police, friend...)? What history was obtained from this source @ -No Did you review nursing and triage notes (agree or disagree)? Why? @ -I reviewed and agree with nursing and triage notes Were old charts reviewed (outside hosp., previous admission, EMS record, old EKG, old radiological studies, urgent care reports/EKG's, [facility] records)? Report findings @ -No old charts were reviewed Differential Diagnosis (chest pain, altered mental status, abdominal pain women, abdominal pain men, vaginal bleeding, weakness, fever, dyspnea, syncope, headache, dizziness, GI bleed, back pain, seizure, CVA, palpatations, mental health, musculoskeletal)? @ -Differential Dyspnea: Coronary syndrome, arrhythmia, tamponade, asthma, COPD, pulmonary embolism, pneumonia, pneumothorax, pulmonary effusion, anaphylaxis, diabetic ketoacidosis, flailed chest, pulmonary contusion, diaphragmatic rupture, anemia, neuromuscular, this is not meant to be an all-inclusive list. EKG interpreted by me (3pts min.). @ -EKG atrial fibrillation rate of 89, QRS duration 90, QTc 415, no ST segment elevation. X-rays interpreted by me (1pt min.). @ -Chest x-ray showing increased pulmonary vascular congestion consistent with CHF. CT interpreted by me (1pt min.). @ -None done U/S interpreted by me (1pt. min.). @ -None done What testing was considered but not performed or refused? (CT, X-rays, U/S, michael bs)? Why? @ -None What meds were considered but not given or refused? Why? @ -None Did you discuss the management of the patient with other professionals (professionals i.e. , PA, ROLL SC[employer] MAN, lab, RT, psych nurse, social worker psychiatric, supervisor air conditioning installer, teacher, emergency communications officer, heel caser)? Give summary @[facility], [place] physician group. Was smoking cessation discussed for >3mins.? @ -No Was critical care preformed (if so, how long)? @ -No Were there social determinants of health that impacted care today? How? (Homelessness, low income, unemployed, alcoholism, drug addiction, transportation, low edu. Level, literacy, decrease access to med. care, penitentiary, rehab)? @ -No Was there de-escalation of care discussed even if they declined (Discuss DNR or withdrawal of care, Hospice)? DNR status @ -No What co-morbidities impacted this encounter? (DM, HTN, Smoking, COPD, CAD, Cancer, CVA, ARF, Chemo, Hep., AIDS, mental health diagnosis, sleep apnea, morbid obesity)? @ -Obesity associated hypoventilation, COPD, CHF Was patient admitted / discharged? Hospital course, mention meds given and route, prescriptions, significant lab abnormalities, going to OR and other pertinent info. @ -57-year-old female with increased dyspnea. Patient has increased oxygen requirements, typically wears 3 L, she was hypoxic by EMS on 6 L. She has poor air entry bilaterally, peripheral edema. Chest x-ray shows increased pulmonary vascular congestion compared to x-ray from 5 days prior. She has a elevated BNP, negative troponin. Normal CBC without leukocytosis, stable hemoglobin. She will be admitted for treatment of multifactorial dyspnea including CHF exacerbation, COPD. Undiagnosed new problem with uncertain prognosis? @ -No Drug Therapy requiring intensive monitoring for toxicity (Heparin, Nitro, Insulin, Cardizem)? @ -No Were any procedures done? @ -No Diagnosis/symptom? @ -CHF, COPD, hypercarbia Acute, or Chronic, or Acute on Chronic? @ -Default Uncomplicated (without systemic symptoms) or Complicated (systemic symptoms)? @ -Default Side effects of treatment? @ -No Exacerbation, Progression, or Severe Exacerbation? @ -No Poses a threat to life or bodily function? How? (Chest pain, [place], [place], pneumonia, PE, COPD, DKA, ARF, appy, cholecystitis, CVA, Diverticulitis, Homicidal, Suicidal, threat to staff... and all critical care pts) @ -[Yes, respiratory failure - Lab Data Result diagrams: 07/22/23 21:36 07/22/23 21:36 Lab Results 07/22/23 07/22/23 07/22/23 Range/Units 21:36 21:36 21:36 WBC 5.1 (3.8-10.6) k/uL RBC 3.86 (3.80-5.40) m/uL Hgb 10.7 L (11.4-16.0) gm/dL Hct 33.8 L (34.0-46.0) % MCV 87.4 (80.0-100.0) fL MCH 27.8 (25.0-35.0) pg MCHC 31.7 (31.0-37.0) g/dL RDW 16.6 H (11.5-15.5) % Plt Count 288 (150-450) k/uL MPV 8.3 Neutrophils % 60 % Lymphocytes % 27 % Monocytes % 7 % Eosinophils % 4 % Basophils % 0 % Neutrophils # 3.1 (1.3-7.7) k/uL Lymphocytes # 1.4 (1.0-4.8) k/uL Monocytes # 0.4 (0-1.0) k/uL Eosinophils # 0.2 (0-0.7) k/uL Basophils # 0.0 (0-0.2) k/uL Hypochromasia Moderate Anisocytosis Slight PT 11.6 (10.0-12.5) sec INR 1.1 (<1.2) APTT 26.3 (22.0-30.0) sec VBG pH (7.31-7.41) VBG pCO2 (37-51) mmHg VBG HCO3 (24-28) mmol/L Sodium 139 (137-145) mmol/L Potassium 4.4 (3.5-5.1) mmol/L Chloride 104 (98-107) mmol/L Carbon Dioxide 29 (22-30) mmol/L Anion Gap 6 mmol/L BUN 16 (7-17) mg/dL Creatinine 0.46 L (0.52-1.04) mg/dL Est GFR (CKD-EPI)AfAm >90 (>60 ml/min/1.73 sqM) Est GFR (CKD-EPI)NonAf >90 (>60 ml/min/1.73 sqM) Glucose 116 H (74-99) mg/dL Calcium 8.6 (8.4-10.2) mg/dL Magnesium 1.6 (1.6-2.3) mg/dL Total Bilirubin 0.9 (0.2-1.3) mg/dL AST 47 H (14-36) U/L ALT 32 (4-34) U/L Alkaline Phosphatase 99 (38-126) U/L Troponin I (0.000-0.034) ng/mL NT-Pro-B Natriuret Pep 2660 pg/mL Total Protein 6.6 (6.3-8.2) g/dL Albumin 3.5 (3.5-5.0) g/dL 07/22/23 07/22/23 Range/Units 21:36 21:36 WBC (3.8-10.6) k/uL RBC (3.80-5.40) m/uL Hgb (11.4-16.0) gm/dL Hct (34.0-46.0) % MCV (80.0-100.0) fL MCH (25.0-35.0) pg MCHC (31.0-37.0) g/dL RDW (11.5-15.5) % Plt Count (150-450) k/uL MPV Neutrophils % % Lymphocytes % % Monocytes % % Eosinophils % % Basophils % % Neutrophils # (1.3-7.7) k/uL Lymphocytes # (1.0-4.8) k/uL Monocytes # (0-1.0) k/uL Eosinophils # (0-0.7) k/uL Basophils # (0-0.2) k/uL Hypochromasia Anisocytosis PT (10.0-12.5) sec INR (<1.2) APTT (22.0-30.0) sec VBG pH 7.32 (7.31-7.41) VBG pCO2 64 H (37-51) mmHg VBG HCO3 33 H (24-28) mmol/L Sodium (137-145) mmol/L Potassium (3.5-5.1) mmol/L Chloride (98-107) mmol/L Carbon Dioxide (22-30) mmol/L Anion Gap mmol/L BUN (7-17) mg/dL Creatinine (0.52-1.04) mg/dL Est GFR (CKD-EPI)AfAm (>60 ml/min/1.73 sqM) Est GFR (CKD-EPI)NonAf (>60 ml/min/1.73 sqM) Glucose (74-99) mg/dL Calcium (8.4-10.2) mg/dL Magnesium (1.6-2.3) mg/dL Total Bilirubin (0.2-1.3) mg/dL AST (14-36) U/L ALT (4-34) U/L Alkaline Phosphatase (38-126) U/L Troponin I <0.012 (0.000-0.034) ng/mL NT-Pro-B Natriuret Pep pg/mL Total Protein (6.3-8.2) g/dL Albumin (3.5-5.0) g/dL Disposition Clinical Impression: COPD exacerbation, Congestive heart failure Disposition: ADMITTED IP TO THIS HOSP Condition: Stable Is patient prescribed a controlled substance at d/c from ED?: No Referrals: Sugey Chester MD [Primary Care Provider] - 1-2 days Time of Disposition: 22:51
--- NOTE | 2023-07-22 21:39 | XR ---
EXAMINATION TYPE: XR chest 2V DATE OF EXAM: 07/22/2023 9:20 PM CLINICAL INDICATION:Female, 57 years old with history of difficulty breathing; [facility] COMPARISON: Chest radiographs from 07/14/2023. TECHNIQUE: XR chest 2V Frontal and lateral views of the chest. FINDINGS: Lungs/Pleura: There is no evidence of pleural effusion, focal consolidation, or pneumothorax. Pulmonary vascularity: Pulmonary vascular congestion. Heart/mediastinum: Cardiomediastinal silhouette is enlarged and stable. Musculoskeletal: No acute osseous pathology. IMPRESSION: Cardiomegaly and mild pulmonary vascular congestion. Correlate with BNP for congestive heart failure.
[2023-07-22 21:56] LABS: Anisocytosis Slight; Basophils % (A) 0 %; Eosinophils # (A) 0.2 k/uL (0-0.7); Eosinophils % (A) 4 %; HCT 33.8 % (34.0-46.0); HGB 10.7 gm/dL (11.4-16.0); Hypochromasia Moderate; Lymphocytes # (A) 1.4 k/uL (1.0-4.8); Lymphocytes % (A) 27 %; MCH 27.8 pg (25.0-35.0); MCHC 31.7 g/dL (31.0-37.0); MCV 87.4 fL (80.0-100.0); Mean Platelet Volume 8.3; Monocytes # (A) 0.4 k/uL (0-1.0); Monocytes % (A) 7 %; Neutrophils # (A) 3.1 k/uL (1.3-7.7); Neutrophils % (A) 60 %; Platelet Count 288 k/uL (150-450); RBC 3.86 m/uL (3.80-5.40); RDW 16.6 % (11.5-15.5); WBC 5.1 k/uL (3.8-10.6)
[2023-07-22 22:03] LABS: VBG PH 7.32 (7.31-7.41)
[2023-07-22 22:14] LABS: ALT 32 U/L (4-34); African American GFR (CKD) >90 (>60 ml/min/1.73 sqM); Anion Gap 6 mmol/L; Blood Urea Nitrogen 16 mg/dL (7-17); Calcium 8.6 mg/dL (8.4-10.2); Carbon Dioxide 29 mmol/L (22-30); Chloride 104 mmol/L (98-107); Glucose 116 mg/dL (74-99); Magnesium 1.6 mg/dL (1.6-2.3); Non-African American GFR(CKD) >90 (>60 ml/min/1.73 sqM); Potassium 4.4 mmol/L (3.5-5.1); Sodium 139 mmol/L (137-145); Total Bilirubin 0.9 mg/dL (0.2-1.3); Total Protein 6.6 g/dL (6.3-8.2)
[2023-07-22 22:15] LABS: AST 47 U/L (14-36); Albumin 3.5 g/dL (3.5-5.0); Alkaline Phosphatase 99 U/L (38-126); INR 1.1 (<1.2); Partial Thromboplastin Time 26.3 sec (22.0-30.0); Prothrombin Time 11.6 sec (10.0-12.5)
[2023-07-22 22:22] LABS: NT-Pro-B-Type Natriuretic Pept 2660 pg/mL
[2023-07-22] MEDS ORDERED: NALOXONE 0.4 MG/ML 1 ML VIAL IVP PRN (22:45)
[2023-07-22] MEDS: ALBUTEROL NEBULIZED 2.5 MG/3 ML INHALATION STA (22:45)
[2023-07-22] MEDS: IPRATROPIUM-ALBUTEROL 3 ML NEB INHALATION STA (22:45)
[2023-07-22] MEDS ORDERED: ACETAMINOPHEN TAB 325 MG TAB PO PRN (22:45)
[2023-07-22] MEDS ORDERED: IPRATROPIUM-ALBUTEROL 3 ML NEB INHALATION PRN (22:45)
[2023-07-22] MEDS: FUROSEMIDE 10 MG/ML 4 ML VIAL IV STA (23:11)
[2023-07-23] MEDS: methylPREDNISolone SOD SUCCI 125 MG/2 ML VIAL IV SCH ×2 (00:06→07:04)
[2023-07-23] MEDS ORDERED: DEXTROSE 50% SYRINGE 50 ML IVP PRN ×2 (02:31)
--- NOTE | 2023-07-23 02:50 | P.HPIM ---
History of Present Illness H&P Date: 07/23/23 Chief Complaint: Shortness of breath 57-year-old female with atrial fibrillation on Eliquis, COPD on home oxygen 3 L, diastolic CHF Patient recently seen and treated in the hospital discharged 5 days ago where she was treated for right lower extremity cellulitis and CHF exacerbation, Patient coming in today complaining of worsening shortness of breath which has been progressive since discharge along with low oxygen level dropping to the 80s percent despite supplemental oxygen, describes shortness of breath with mild exertion and at rest positive orthopnea denies any chest pain denies any fevers or chills. She also reports worsening erythema of her right lower extremity despite taking her antibiotics at home she was discharged on Keflex Otherwise denies any fevers chills denies any chest pain denies any cough denies any nausea vomiting Patient also reports an incident where she had a fall and hurt the curb about 2 weeks ago she was evaluated at [facility] and found to have multiple facial bone fractures review of systems Pertinent positives as noted in HPI. All other systems were reviewed and are negative on exam Constitutional: No acute distress, conversant, pleasant, currently on BiPAP Eyes: Anicteric sclerae, moist conjunctiva, Pupils equal round reactive to light, ecchymosis right periorbital ENMT: NC/AT Neck: Supple, no masses, or JVD No carotid bruits No thyromegaly Lungs: Inspiratory rales at lung bases bilaterally expiratory wheezing Clear to percussion Normal respiratory effort, no accessory muscle use Cardiovascular: Heart regular in rate and rhythm, No murmurs, gallops, or rubs Trace bilateral peripheral leg edema Abdominal: Soft Nontender, no guarding, rebound or rigidity Abdomen moving with respiration Normoactive bowel sounds No hepatomegaly, No splenomegaly No palpable mass No abdominal wall hernia noted Skin: Slight erythema over bilateral lower extremity worse on the right compared to left no open wound no drainage Extremities: No digital cyanosis No clubbing Pedal pulses intact and symmetrical Radial pulses intact and symmetrical No calf tenderness Psychiatric: Alert and oriented to person, place and time Appropriate affect fair judgement Neuro Muscles Strength 5/5 in all 4 extremities Sensation to light touch grossly present throughout Cranial nerves II-XII grossly intact Past Medical History Past Medical History: Atrial Fibrillation, Asthma, COPD, Hyperlipidemia, Hypertension, Myocardial Infarction ([place]), Respiratory Disorder Additional Past Medical History / Comment(s): wears oxygen 3lnc when mobile Last Myocardial Infarction Date:: 2021 History of Any Multi-Drug Resistant Organisms: None Reported Past Surgical History: Heart Catheterization With Stent, Orthopedic Surgery Additional Past Surgical History / Comment(s): metal plate right arm, oral surgery fracture jawed,hx gallstones Past Anesthesia/Blood Transfusion Reactions: No Reported Reaction Additional Past Anesthesia/Blood Transfusion Reaction / Comment(s): No blood transfusion Date of Last Stent Placement:: 2021 Past Psychological History: Anxiety, Depression Smoking Status: Former smoker Past Alcohol Use History: None Reported Past Drug Use History: None Reported - Past Family History Mother Family Medical History: Cancer Additional Family Medical History / Comment(s): uterine, breast, lymph nodes Medications and Allergies Home Medications Medication Instructions Recorded Confirmed Type Apixaban [Eliquis] 5 mg PO BID 10/26/22 07/14/23 History Atorvastatin [Lipitor] 40 mg PO HS 10/26/22 07/14/23 History Cetirizine HCl 10 mg PO DAILY 10/26/22 07/14/23 History FLUoxetine HCL [PROzac] 40 mg PO DAILY@1200 10/26/22 07/14/23 History Folic Acid 1 mg PO DAILY 10/26/22 07/14/23 History Gabapentin [Neurontin] 300 mg PO BID 10/26/22 07/14/23 History HYDROcodone/APAP 5-325MG [[place] 1 tab PO TID 10/26/22 07/14/23 History 5-325] Mirtazapine [Remeron] 15 mg PO HS 10/26/22 07/14/23 History Montelukast [Singulair] 10 mg PO DAILY 10/26/22 07/14/23 History Dulaglutide [Trulicity] 1.5 mg SQ SA 06/21/23 07/14/23 History Ergocalciferol [Vitamin D2 (1250 1,250 mcg PO SA 06/21/23 07/14/23 History Mcg = 99099 Iu)] Ipratropium-Albuterol Nebulize 3 ml INHALATION RT-QID 06/21/23 07/14/23 History [Duoneb 0.5 mg-3 mg/3 ml Soln] Omeprazole 20 mg PO DAILY 06/21/23 07/14/23 History lisinopriL [Zestril] 5 mg PO DAILY 06/21/23 07/14/23 History Fluticasone Nasal [place] [Flonase 2 spray EA NOSTRIL DAILY ml 06/27/23 07/14/23 Rx Nasal [place]] Metoprolol Tartrate [Lopressor] 75 mg PO BID #180 tab 06/27/23 07/14/23 Rx guaiFENesin [Mucinex] 1,200 mg PO Q12HR tab 06/27/23 07/14/23 Rx Cephalexin [Keflex] 500 mg PO Q6HR 10 Days #40 cap 07/17/23 Rx Diltiazem Oral [Cardizem*] 60 mg PO TID #90 tab 07/17/23 Rx Furosemide [Lasix] 40 mg PO BID@0900,1600 #60 tab 07/17/23 Rx Allergies Allergy/AdvReac Type Severity Reaction Status Date / Time ibuprofen Allergy Rash/Hives Verified 07/14/23 17:08 NSAIDS (Non-Steroidal Allergy Rash/Hives Verified 07/14/23 17:08 Anti-Inflamma tetracycline Allergy Rash/Hives Verified 07/14/23 17:08 Physical Exam Vitals: Vital Signs Temp Pulse Resp BP Pulse Ox FiO2 07/23/23 01:00 111 H 16 139/95 97 07/23/23 00:40 35 07/22/23 23:54 85 16 141/93 94 L 07/22/23 23:03 88 35 07/22/23 22:52 88 35 07/22/23 20:56 98.5 F 103 H 22 113/74 93 L Intake and Output 07/22/23 07/22/23 07/23/23 14:59 22:59 06:59 Other: Weight 127.006 kg Results CBC & Chem 7: 07/22/23 21:36 07/22/23 21:36 Labs: Abnormal Lab Results - Last 24 Hours (Table) 07/22/23 07/22/23 07/22/23 Range/Units 21:36 21:36 21:36 Hgb 10.7 L (11.4-16.0) gm/dL Hct 33.8 L (34.0-46.0) % RDW 16.6 H (11.5-15.5) % VBG pCO2 64 H (37-51) mmHg VBG HCO3 33 H (24-28) mmol/L Creatinine 0.46 L (0.52-1.04) mg/dL Glucose 116 H (74-99) mg/dL AST 47 H (14-36) U/L Assessment and Plan Assessment: 57-year-old female with diastolic CHF, A-fib on Eliquis, COPD on 3 L oxygen coming in for worsening shortness of breath since discharge 5 days ago. I discussed case with ED doctor and accepted the admission for acute on chronic diastolic CHF exacerbation with anticipated length of stay more than 2 midnights Acute on chronic hypoxic respiratory failure Acute on chronic diastolic CHF exacerbation COPD exacerbation Supplemental oxygen as needed Chest x-ray showed increased pulmonary vascular congestion IV Lasix 40 mg twice daily Monitor urine output Cardiac monitoring Monitor vital signs Tropes negative BNP elevated 2660 Renal function unremarkable sodium 139 potassium 4.4 BUN 16 creatinine 0.46 Continue with BiPAP as needed Continue with DuoNebs scheduled and as needed Methylprednisolone 60 mg IV push every 6 hours Continue Singulair 10 mg p.o. daily Cellulitis of the right lower extremity Patient on Keflex as outpatient, she reports persistent erythema and pain of the right lower extremity Start vancomycin dosing by pharmacy White count 5.1 patient afebrile Bruising of the face multiple facial fractures secondary to accidental fall about 2 weeks ago Continue to follow-up outpatient with [facility] as instructed Paroxysmal A-fib, continue with Eliquis Continue with diltiazem 60 mg p.o. 3 times daily Continue with metoprolol 75 mg p.o. twice daily Full code GI prophylaxis on Protonix 40 mg p.o. daily DVT prophylaxis on Eliquis for A-fib
[2023-07-23] MEDS ORDERED: VANCOMYCIN IV PER PHARMACY 1 EACH MISC MISCELLANE PRN (02:53)
[2023-07-23] MEDS: VANCOMYCIN 2,000 MG in SODIUM CHLORIDE 0.9% 500 ML 500 ML IVPB STA (03:55)
[2023-07-23] MEDS: METOPROLOL TARTRATE 25 MG TAB PO SCH (03:57)
[2023-07-23] MEDS: DILTIAZEM ORAL 60 MG TAB PO SCH (04:10)
[2023-07-23] MEDS: IPRATROPIUM-ALBUTEROL 3 ML NEB INHALATION SCH (07:35)
[2023-07-23 07:55] LABS: Glucose,Whole Blood 155 mg/dL (70-110)
[2023-07-23] MEDS: INSULIN ASPART (NovoLOG) 100 UNIT/ML VIAL SQ SCH (08:22)
[2023-07-23] MEDS: HYDROcodone/APAP 5-325MG 1 EACH TAB PO SCH (08:23)
[2023-07-23] MEDS: APIXABAN 5 MG TAB PO SCH (08:23)
[2023-07-23] MEDS: lisinopriL 5 MG TAB PO SCH (08:24)
[2023-07-23] MEDS: PANTOPRAZOLE 40 MG TABLET PO SCH (08:24)
[2023-07-23] MEDS: MONTELUKAST 10 MG TAB PO SCH (08:24)
[2023-07-23] MEDS: GABAPENTIN 300 MG CAP PO SCH (08:24)
[2023-07-23] MEDS: FUROSEMIDE 10 MG/ML 4 ML VIAL IV SCH (08:25)
[2023-07-23] MEDS ORDERED: VANCOMYCIN 2,000 MG in SODIUM CHLORIDE 0.9% 500 ML 500 ML IVPB SCH (12:00)
[2023-07-23] MEDS: VANCOMYCIN 2,000 MG in SODIUM CHLORIDE 0.9% 500 ML 500 ML IVPB SCH (16:37)
--- NOTE | 2023-07-23 17:01 | P.CNPUL ---
History of Present Illness Consult date: 07/23/23 Reason for consult: dyspnea, hypoxemia History of present illness: This is a 57-year-old female patient was hospitalized for worsening shortness of breath. She is morbidly obese with a body mass index of 49.6. She is known to have COPD in addition to obstructive sleep apnea and the patient underwent a recent sleep evaluation during which the patient was found to have severe symptomatic obstructive sleep apnea with an AHI of 41.8 and the patient was given CPAP therapy pressure of 11 cm of water. She has advanced COPD with chronic hypoxic and hypercapnic respiratory failure, chronic A-fib, hypertension hyperlipidemia in addition to coronary artery disease with previous coronary stenting and chronic anxiety and depression. Her last hospitalization was few weeks back and the patient was in the hospital for right lower extremity cellu litis and the patient was seen by the hospitalist group and she was discharged home on Keflex 500 mg p.o. 4 times a day. The patient has chronic hypoxic respiratory failure maintained on oxygen 3 L at all times. She has chronic diastolic heart failure in addition. Another issue was a fall as the patient tripped and she had sustained a trauma to her face and head with multiple facial bone fractures seen at [facility] and discharged without any further interventions. The The patient is coming in with exertional dyspnea and hypoxemia and the patient has developed drop in pulse ox while being on 3 days of oxygen by nasal cannula. She is currently on 4 L. She had increased lower extremity edema. Chest x-ray showing cardiomegaly with pulm vessel congestion. BUN is at 16 with a creatinine 0.4. White cell count of 5.1 with a hemoglobin of 10.7. proBNP level is 2660 and troponins are negative. No angina. No altered mentation. Review of Systems CONSTITUTIONAL: Denies any recent significant weight loss or weight gain. The patient is morbidly obese and she suffers from chronic hypersomnia and chronic limitation exercise capacity due to her COPD and morbid obesity. EYES: Denies change in vision. EARS, NOSE, MOUTH, THROAT: Denies headaches, denies sore throat. CARDIOVASCULAR: Denies chest pain, palpitations or syncopal episodes. RESPIRATORY: Positive for shortness of breath, cough, congestion no hemoptysis. GASTROINTESTINAL: Denies change in appetite, denies abdominal pain GENITOURINARY: Denies hematuria, denies infections. MUSKULOSKELETAL: Denies pain, increased edema lower extremities bilaterally INTEGUMENTARY: Denies rash, denies eczema. Areas of bruising, ecchymosis over the face and the forehead. NEUROLOGICAL: Denies recent memory loss, no recent seizure activity. PSYCHIATRIC: Denies anxiety, denies depression. HEMATOLOGIC/LYMPHATIC: Denies anemia, denies enlarged lymph nodes. Past Medical History Past Medical History: Atrial Fibrillation, Asthma, COPD, Hyperlipidemia, Hyperte nsion, Myocardial Infarction ([place]), Respiratory Disorder Additional Past Medical History / Comment(s): wears oxygen 3lnc when mobile Last Myocardial Infarction Date:: 2021 History of Any Multi-Drug Resistant Organisms: None Reported Past Surgical History: Heart Catheterization With Stent, Orthopedic Surgery Additional Past Surgical History / Comment(s): metal plate right arm, oral surgery fracture jawed,hx gallstones Past Anesthesia/Blood Transfusion Reactions: No Reported Reaction Additional Past Anesthesia/Blood Transfusion Reaction / Comment(s): No blood transfusion Date of Last Stent Placement:: 2021 Past Psychological History: Anxiety, Depression Smoking Status: Former smoker Past Alcohol Use History: None Reported Past Drug Use History: None Reported - Past Family History Mother Family Medical History: Cancer Additional Family Medical History / Comment(s): uterine, breast, lymph nodes Medications and Allergies Home Medications Medication Instructions Recorded Confirmed Type Apixaban [Eliquis] 5 mg PO BID 10/26/22 07/23/23 History Atorvastatin [Lipitor] 40 mg PO HS 10/26/22 07/23/23 History Cetirizine HCl 10 mg PO DAILY 10/26/22 07/23/23 History FLUoxetine HCL [PROzac] 40 mg PO DAILY@1200 10/26/22 07/23/23 History Folic Acid 1 mg PO DAILY 10/26/22 07/23/23 History Gabapentin [Neurontin] 300 mg PO BID 10/26/22 07/23/23 History HYDROcodone/APAP 5-325MG [[place] 1 tab PO TID 10/26/22 07/23/23 History 5-325] Mirtazapine [Remeron] 15 mg PO HS 10/26/22 07/23/23 History Montelukast [Singulair] 10 mg PO DAILY 10/26/22 07/23/23 History Dulaglutide [Trulicity] 1.5 mg SQ SA 06/21/23 07/23/23 History Ergocalciferol [Vitamin D2 (1250 1,250 mcg PO SA 06/21/23 07/23/23 History Mcg = 42858 Iu)] Ipratropium-Albuterol Nebulize 3 ml INHALATION RT-QID 06/21/23 07/23/23 History [Duoneb 0.5 mg-3 mg/3 ml Soln] Omeprazole 20 mg PO DAILY 06/21/23 07/23/23 History lisinopriL [Zestril] 5 mg PO DAILY 06/21/23 07/23/23 History Fluticasone Nasal [place] [Flonase 2 spray EA NOSTRIL DAILY ml 06/27/23 07/23/23 Rx Nasal [place]] Metoprolol Tartrate [Lopressor] 75 mg PO BID #180 tab 06/27/23 07/23/23 Rx guaiFENesin [Mucinex] 1,200 mg PO Q12HR tab 06/27/23 07/23/23 Rx Cephalexin [Keflex] 500 mg PO Q6HR 10 Days #40 cap 07/17/23 07/23/23 Rx Diltiazem Oral [Cardizem*] 60 mg PO TID #90 tab 07/17/23 07/23/23 Rx Furosemide [Lasix] 40 mg PO BID@0900,1600 #60 tab 07/17/23 07/23/23 Rx Allergies Allergy/AdvReac Type Severity Reaction Status Date / Time ibuprofen Allergy Rash/Hives Verified 07/23/23 07:11 NSAIDS (Non-Steroidal Allergy Rash/Hives Verified 07/23/23 07:11 Anti-Inflamma tetracycline Allergy Rash/Hives Verified 07/23/23 07:11 Physical Exam Vitals: Vital Signs Temp Pulse Resp BP Pulse Ox FiO2 07/23/23 15:32 99 07/23/23 15:22 107 H 07/23/23 11:24 94 L 07/23/23 11:15 90 07/23/23 11:02 88 07/23/23 10:00 66 18 126/91 95 07/23/23 08:21 87 20 110/75 95 07/23/23 07:52 92 07/23/23 07:39 96 07/23/23 07:37 90 07/23/23 07:04 86 16 129/101 95 07/23/23 05:20 92 16 123/92 95 07/23/23 04:15 107 H 16 112/81 93 L 07/23/23 03:42 35 07/23/23 03:00 105 H 20 92 L 07/23/23 02:00 111 H 16 120/93 93 L 07/23/23 01:00 111 H 16 139/95 97 07/23/23 00:40 35 07/22/23 23:54 85 16 141/93 94 L 07/22/23 23:03 88 35 07/22/23 22:52 88 35 07/22/23 20:56 98.5 F 103 H 22 113/74 93 L No acute distress, oriented x 3. Currently on 4 L of oxygen. Her cough is wet and congested sounding. No use of accessory muscles, or conversational dyspnea. There is evidence of subcutaneous ecchymotic changes over the forehead and the face related to recent fall and trauma to her head. She has also a area of laceration that has been staged. The sutures are still in place. Head exam was generally normal. There was no scleral icterus or corneal arcus. Mucous membranes were moist. HEENT examination is grossly unremarkable. Mucous membranes are moist. No oral lesions. Neck supple. Full range of motion. No adenopathy thyromegaly or neck vein distention. Cardiovascular examination reveals regular rhythm rate. S1-S2 normal. No S3 or S4. No discernible murmur noted. H Heart sounds are distant. Lungs reveal inspiratory and expiratory wheezes and rhonchi. No crackles. Breath sounds equal bilaterally. Abdomen soft bowel sounds are heard. No masses or tenderness. Extremities are intact. No cyanosis clubbing there is increased edema lower extremities bilaterally and the patient has +1 pitting edema and there is no active cellulitis in the right lower extremity chavez wound has essentially healed. Skin is without rash or lesion. Neurologic examination is brief but nonfocal. Results - Laboratory Findings CBC and BMP: 07/22/23 21:36 07/22/23 21:36 ABG WBC 5.1 k/uL (3.8-10.6) 07/22/23 21:36 RBC 3.86 m/uL (3.80-5.40) 07/22/23 21:36 Hgb 10.7 gm/dL (11.4-16.0) L 07/22/23 21:36 Hct 33.8 % (34.0-46.0) L 07/22/23 21:36 MCV 87.4 fL (80.0-100.0) 07/22/23 21:36 MCH 27.8 pg (25.0-35.0) 07/22/23 21:36 MCHC 31.7 g/dL (31.0-37.0) 07/22/23 21:36 RDW 16.6 % (11.5-15.5) H 07/22/23 21:36 Plt Count 288 k/uL (150-450) 07/22/23 21:36 MPV 8.3 07/22/23 21:36 Neutrophils % 60 % 07/22/23 21:36 Lymphocytes % 27 % 07/22/23 21:36 Monocytes % 7 % 07/22/23 21:36 Eosinophils % 4 % 07/22/23 21:36 Basophils % 0 % 07/22/23 21:36 Neutrophils # 3.1 k/uL (1.3-7.7) 07/22/23 21:36 Lymphocytes # 1.4 k/uL (1.0-4.8) 07/22/23 21:36 Monocytes # 0.4 k/uL (0-1.0) 07/22/23 21:36 Eosinophils # 0.2 k/uL (0-0.7) 07/22/23 21:36 Basophils # 0.0 k/uL (0-0.2) 07/22/23 21:36 Hypochromasia Moderate 07/22/23 21:36 Anisocytosis Slight 07/22/23 21:36 PT 11.6 sec (10.0-12.5) 07/22/23 21:36 INR 1.1 (<1.2) 07/22/23 21:36 APTT 26.3 sec (22.0-30.0) 07/22/23 21:36 VBG pH 7.32 (7.31-7.41) 07/22/23 21:36 VBG pCO2 64 mmHg (37-51) H 07/22/23 21:36 VBG HCO3 33 mmol/L (24-28) H 07/22/23 21:36 Sodium 139 mmol/L (137-145) 07/22/23 21:36 Potassium 4.4 mmol/L (3.5-5.1) 07/22/23 21:36 Chloride 104 mmol/L (98-107) 07/22/23 21:36 Carbon Dioxide 29 mmol/L (22-30) 07/22/23 21:36 Anion Gap 6 mmol/L 07/22/23 21:36 BUN 16 mg/dL (7-17) 07/22/23 21:36 Creatinine 0.46 mg/dL (0.52-1.04) L 07/22/23 21:36 Est GFR (CKD-EPI)AfAm >90 (>60 ml/min/1.73 sqM) 07/22/23 21:36 Est GFR (CKD-EPI)NonAf >90 (>60 ml/min/1.73 sqM) 07/22/23 21:36 Glucose 116 mg/dL (74-99) H 07/22/23 21:36 POC Glucose (mg/dL) 155 mg/dL (70-110) H 07/23/23 07:54 POC Glu [employer] LATANYA Kwesi Brantley 07/23/23 07:54 Calcium 8.6 mg/dL (8.4-10.2) 07/22/23 21:36 Magnesium 1.6 mg/dL (1.6-2.3) 07/22/23 21:36 Total Bilirubin 0.9 mg/dL (0.2-1.3) 07/22/23 21:36 AST 47 U/L (14-36) H 07/22/23 21:36 ALT 32 U/L (4-34) 07/22/23 21:36 Alkaline Phosphatase 99 U/L (38-126) 07/22/23 21:36 Troponin I <0.012 ng/mL (0.000-0.034) 07/22/23 21:36 NT-Pro-B Natriuret Pep 2660 pg/mL 07/22/23 21:36 Total Protein 6.6 g/dL (6.3-8.2) 07/22/23 21:36 Albumin 3.5 g/dL (3.5-5.0) 07/22/23 21:36 PT/INR, D-dimer PT 11.6 sec (10.0-12.5) 07/22/23 21:36 INR 1.1 (<1.2) 07/22/23 21:36 Abnormal lab findings: Abnormal Labs 07/22/23 07/22/23 07/22/23 21:36 21:36 21:36 Hgb 10.7 L Hct 33.8 L RDW 16.6 H VBG pCO2 64 H VBG HCO3 33 H Creatinine 0.46 L Glucose 116 H POC Glucose (mg/dL) AST 47 H 07/23/23 07:54 Hgb Hct RDW VBG pCO2 VBG HCO3 Creatinine Glucose POC Glucose (mg/dL) 155 H AST - Diagnostic Findings Chest x-ray: image reviewed Assessment and Plan Plan: Acute hypoxemic respiratory failure secondary to COPD exacerbation, and fluid overload. I think the patient has some increasing interstitial edema bilaterally in addition to increased lower extremity edema bilaterally. Currently she is on 4 L of oxygen by nasal cannula. No clear indication for underlying pneumonia. Chronic hypoxic/hypercapnic respiratory failure, please refer to previous blood gas done on this patient. Severe obstructive sleep apnea with an AHI of 41 and the patient has been titrated to a CPAP pressure of 11 cm of water Recent fall and head trauma with fracture of facial bones with areas of skin bru ising. No open wounds at this point in time. I suspect that her baseline pCO2 is in the 50s. Childhood asthma and the patient reports that she was intubated in the past on multiple occasions as a child in [facility]. Body mass index of above 50 Prior history of significant tobacco use. Multiple hospitalizations most recent of which was attributed to the right lower extremity cellulitis, treated with Keflex MRSA in the sputum cultures on 07/03/2023 History of atrial fibrillation. Rate is controlled and the patient is on long- term anticoagulation with Eliquis. The rate is controlled at this point in time History of hyperlipidemia. History of hypertension. History of coronary artery disease, with previous PCI/stent placement. History of myocardial infarction. Chronic anxiety/depression. Plan Will asked the patient to utilize her own CPAP machine from home. If not, we will going to provide her a CPAP machine the pressure of 11 cm of water DuoNeb nebulizer treatments 4 times a day [id number] IV Lasix 40 mg every 12 hours IV Solu-Medrol and the patient will be given a short course of steroids Antibiotics per medical group Resume home medications No signs of any CO2 narcosis Previous echocardiogram showed a preserved LV function with an ejection fraction of 50 to 55% Will continue to follow
[2023-07-23 17:44] LABS: Glucose,Whole Blood 210 mg/dL (70-110)
[2023-07-23] MEDS ORDERED: IPRATROPIUM-ALBUTEROL 3 ML NEB INHALATION SCH (20:00)
[2023-07-23 20:34] LABS: Glucose,Whole Blood 232 mg/dL (70-110)
[2023-07-23] MEDS: guaiFENesin 600 MG TABLET.ER PO SCH (21:00)
[2023-07-23] MEDS: MIRTAZAPINE 15 MG TAB PO SCH (21:00)
[2023-07-23] MEDS: ATORVASTATIN 40 MG TAB PO SCH (21:00)
[2023-07-24 06:07] LABS: Glucose,Whole Blood 181 mg/dL (70-110)
[2023-07-24] MEDS: FOLIC ACID 1 MG TAB PO SCH (08:16)
[2023-07-24] MEDS: LORATADINE 10 MG TAB PO SCH (08:16)
[2023-07-24] MEDS: FLUTICASONE 50MCG/SPRAY NASAL 16GM EA NOSTRIL SCH (08:18)
[2023-07-24 11:21] LABS: Anisocytosis Slight; HCT 37.4 % (34.0-46.0); HGB 11.1 gm/dL (11.4-16.0); Hypochromasia Marked; MCH 26.6 pg (25.0-35.0); MCHC 29.7 g/dL (31.0-37.0); MCV 89.7 fL (80.0-100.0); Platelet Count 414 k/uL (150-450); RBC 4.16 m/uL (3.80-5.40); RDW 16.3 % (11.5-15.5); WBC 6.6 k/uL (3.8-10.6)
[2023-07-24 11:30] LABS: African American GFR (CKD) >90 (>60 ml/min/1.73 sqM); Non-African American GFR(CKD) >90 (>60 ml/min/1.73 sqM)
[2023-07-24 11:32] LABS: ALT 28 U/L (4-34); AST 26 U/L (14-36); African American GFR (CKD) >90 (>60 ml/min/1.73 sqM); Albumin 3.7 g/dL (3.5-5.0); Albumin/Globulin Ratio 1.2; Alkaline Phosphatase 114 U/L (38-126); Anion Gap 7 mmol/L; Blood Urea Nitrogen 19 mg/dL (7-17); C Reactive Protein 4.6 mg/dL (<1.0); Calcium 8.8 mg/dL (8.4-10.2); Carbon Dioxide 32 mmol/L (22-30); Chloride 101 mmol/L (98-107); Glucose 149 mg/dL (74-99); Magnesium 1.7 mg/dL (1.6-2.3); Non-African American GFR(CKD) >90 (>60 ml/min/1.73 sqM); Potassium 4.3 mmol/L (3.5-5.1); Sodium 140 mmol/L (137-145); Total Bilirubin 0.6 mg/dL (0.2-1.3); Total Protein 6.7 g/dL (6.3-8.2)
[2023-07-24 11:52] LABS: Glucose,Whole Blood 218 mg/dL (70-110)
[2023-07-24] MEDS: FLUoxetine HCL 20 MG CAP PO SCH (12:26)
--- NOTE | 2023-07-24 12:48 | P.PN ---
Subjective Progress Note Date: 07/24/23 Hospital course: Patient is a very pleasant 57-year-old female with a past medical history of CAD with stenting, chronic diastolic heart failure, hypertension, hyperlipidemia, chronic atrial fibrillation on anticoagulation with Eliquis, type II [id number] diabetes mellitus, severe obstructive sleep apnea CPAP dependent, and chronic hypoxic respiratory failure secondary to advanced COPD home oxygen dependent 3 L. She presented to the emergency department on 07/22/2025 with a chief complaint of shortness of breath. Patient was recently discharged from the hospital 5 days prior after being treated for right lower extremity cellulitis and CHF exacerbation. Patient reports status post discharge she had progressively worsening shortness of breath along with low oxygen levels reported to drop down into the 80s despite her supplemental oxygen. She underwent full evaluation in the emergency department. Vital signs upon arrival show blood pressure 113/74, heart rate 103, respiratory rate 22, temp 98.5 F, and SpO2 of 93% on 4 L O2. EKG completed upon arrival showing atrial fibrillation with a controlled ventricular rate of 89 bpm. Chest x-ray completed showing cardiomegaly and mild pulmonary vascular congestion. Patient was admitted under our services with consultation to cardiology and pulmonology. Physical exam: Vital signs reviewed and stable. General: Nontoxic, no distress and appears stated age. Derm: Skin warm and dry, normal coloration for ethnicity. Head: Bruising and repaired laceration to right lateral forehead with [address] Eyes: Mild Periorbital echymosis surrounding right eye, bruising to right side of face. Mouth: no lip lesions, mucus membranes moist Cardiovascular irregularly irregular with normal S1S2, no murmur, positive posterior tibial pulses bilaterally, and cap refill < 2 seconds. Lungs: Respirations even, regular, and unlabored on room air. Lungs diminished, no rhonchi, no rales, no wheezing, and no accessory muscle usage. Abdominal: soft, nontender to palpation, no guarding, no appreciable organomegaly Ext: ROM intact. No gross muscle atrophy, 2+ BLE pitting edema, no contractures. Bilateral lower extremities with mild erythema worse on right, no open wounds or drainage. Neuro: Speech clear, face symmetrical and CN II-XII grossly intact with no noted focal neuro deficits Psych: Alert and oriented to person, place, time, and situation. Appropriate and pleasant affect. Assessment and Plan of Care: Acute on chronic hypoxic respiratory failure Acute on chronic diastolic heart failure exacerbation COPD with acute exacerbation, chronic oxygen dependently baseline 3 L at all times Severe obstructive sleep apnea Chronic atrial fibrillation on anticoagulation with Eliquis CAD with previous stent Hypertension Hyperlipidemia -Continue oxygen supplementation, patient's baseline oxygen needs 3 L at all times. May titrate as needed to maintain SpO2 equal to or greater than 90%. -Continue CPAP nightly and while napping. -Pulmonology following, reviewed documentation in chart -Cardiology consulted, appreciate recommendations -Continue scheduled DuoNebs 4 times daily and as needed for shortness of breath and/or wheezing, Flonase 2 sprays each nostril daily, and Singulair 10 mg nightly. -Steroids: Solu-Medrol 60 mg IVP every 8 hours -Lasix 40 mg IV every 12 hours -Continue strict I's and O's and daily weights -Telemetry monitoring Cellulitis right lower extremity, appears to be improving Bilateral lower extremity edema with venous stasis dermatitis, suspect swelling is results of venous insufficiency -Follow-up on blood cultures -Patient recently hospitalized and received IV antibiotics and discharged home on Keflex reporting persistent erythema and pain with no improvement. -Patient was started on vancomycin upon admission -Infectious disease consulted -Symptomatic care and pain management. Orders placed for application of Haresh wrap to bilateral lower extremities -Order placed for ESR and CRP -Fall precautions Type II odf-hqwjfvp-rwstuaogs diabetes mellitus. -Hold Trulicity and place patient on glycemic protocol with NovoLog sliding scale. -Hemoglobin A1c 7%. Data and imaging reviewed: -Morning labs reviewed:. CBC showing mild normocytic anemia with hemoglobin stable at 11.1. WBC count remains normal at 6.6. BMP revealing hypercarbia with bicarb of 32 and blood glucose of 149. Hemoglobin A1c 7%. CRP 4.6. Magnesium slightly low at 1.7. -Vital signs reviewed. Blood pressure 123/81, heart rate 95, respiratory rate 19, temp 97.5 F, and SpO2 of 94% on 4 L. CODE STATUS: Full code DVT prophylaxis: Eliqudaniele Anticipated discharge date: Clinical course to determine Anticipated discharge place: Home with home care Patient was seen independently by Nurse Practitioner. This document was prepared using naaptol dictation software. Please allow for errors in hot head machine operator while rare they do occur. Kush Segovia NP rendered care for this patient independently, reviewed the findings and plan as documented in the note above. I did not physically speak with or examine the patient on this date. Objective - Vital Signs Vital signs: Vital Signs Temp 97.5 F L 07/24/23 08:00 Pulse 95 07/24/23 08:00 Resp 19 07/24/23 08:00 BP 123/81 07/24/23 08:00 Pulse Ox 94 L 07/24/23 08:31 FiO2 35 07/23/23 03:42 Intake & Output 07/23/23 07/24/23 07/24/23 18:59 06:59 18:59 Intake Total 1580 Balance 1580 Weight 127.006 kg Intake: Intake, IV Titration 500 Amount Vancomycin 2,000 mg In 500 Sodium Chloride 0.9% 500 ml 500 ml @ 167 mls/hr IVPB Q8H [facility] Rx#: [id number] Oral 1080 Other: Voiding Method Toilet # Voids 4 - Labs CBC & Chem 7: 07/24/23 10:46 07/24/23 10:46 Labs: Abnormal Lab Results - Last 24 Hours (Table) 07/23/23 07/23/23 07/24/23 Range/Units 17:32 20:33 06:06 POC Glucose (mg/dL) 210 H 232 H 181 H (70-110) mg/dL
--- NOTE | 2023-07-24 12:54 | P.CRDCN ---
History of Present Illness History of present illness: HISTORY OF PRESENT ILLNESS: This is a 57-year-old female with a past medical history significant for COPD, atrial fibrillation, coronary artery disease, hypertension, hyperlipidemia, and morbid obesity. Patient follows in the office with Dr. Owens. We have been asked to see the patient in consultation for congestive heart failure. Patient examined at the bedside. Patient presented to the hospital with a chief complaint of shortness of breath and lower extremity edema. The patient states that she was previously on Norvasc which was discontinued secondary to lower extremity edema. She states that she was switched to Cardizem and is concerned that the Cardizem may be contributing to lower extremity edema. The patient was found to be in congestive heart failure and was started on IV Lasix. She is currently receiving IV Lasix 40 mg every 12 hours. She is also being treated for a COPD exacerbation with IV steroids. Patient is also receiving IV antibiotics for right lower extremity cellulitis. Vital signs are stable. DIAGNOSTICS: - EKG reveals atrial fibrillation with controlled ventricular rate. - Chest xray cardiomegaly and mild pulmonary vascular congestion.. - Laboratory data: WBC 6.6. Hemoglobin 11.1. Platelet count 414. Sodium 140. Potassium 4.3. BUN 19. Creatinine 0.47. proBNP 2660. - Current home cardiac medications include lisinopril 5 mg daily, metoprolol tartrate 75 mg twice a day, Lasix 40 mg twice a day, Cardizem 60 mg 3 times a day, Lipitor 40 mg at night, Eliquis 5 mg twice a day. - Most recent echocardiogram obtained in May 2023 revealed ejection fraction 50 to 55%, trace MR - Cardiac catheterization history: 2021 per patient, however records are unavailable at this time REVIEW OF SYSTEMS: At the time of my exam: CONSTITUTIONAL: Denies fever or chills. HEENT: Denies blurred vision, vision changes, or eye pain. Denies hemoptysis CARDIOVASCULAR: Denies chest pain. Denies orthopnea. Denies PND. Denies palpitations RESPIRATORY: Denies shortness of breath. GASTROINTESTINAL: Denies abdominal pain. Denies nausea or vomiting. HEMATOLOGIC: Denies bleeding disorders. GENITOURINARY: Denies any blood in urine. SKIN: Denies pruitis. Denies rash. PHYSICAL EXAM: VITAL SIGNS: Reviewed. GENERAL: Well-developed in no acute distress. HEENT: Head is normocephalic. Pupils are equal, round. Sclerae anicteric. Mucous membranes of the mouth are moist. Neck supple. No JVD or thyromegaly LUNGS: Respirations even and unlabored. Lungs diminished with bibasilar crackles HEART: Irregular rate and rhythm. S1 and S2 heard. ABDOMEN: Soft. Nondistended. Nontender. EXTREMITIES: Normal range of motion. No clubbing or cyanosis. Peripheral pulses intact. 2+ bilateral lower extremity edema with evidence of mild cellulitis to right lower extremity NEUROLOGIC: Awake and alert. Oriented x 3. ASSESSMENT: Shortness of breath Acute heart failure with preserved LV function, EF 50 to 55% Acute COPD exacerbation Acute on chronic hypoxic respiratory failure requiring supplemental oxygen Right lower extremity cellulitis Persistent atrial fibrillation Coronary artery disease with previous PCI, details unknown Hypertension Hyperlipidemia Former nicotine dependence Morbid obesity PLAN: No need to repeat echocardiogram as this was performed in May 2023 Continue current cardiac medications Continue to hold Cardizem Increase metoprolol to 100 mg twice a day Continue IV Lasix 40 mg every 12 hours Daily weights, accurate I&O, and monitoring of kidney function Further recommendations pending patient course Nurse practitioner note has been reviewed by physician. Signing provider agrees with the documented findings, assessment, and plan of care documented by REMOTE SENSING RESEARCH SCIENTIST as a scribe. Past Medical History Past Medical History: Atrial Fibrillation, Asthma, COPD, Hyperlipidemia, Hypertension, Myocardial Infarction ([place]), Respiratory Disorder Additional Past Medical History / Comment(s): wears oxygen 3lnc when mobile Last Myocardial Infarction Date:: 2021 History of Any Multi-Drug Resistant Organisms: None Reported Past Surgical History: Heart Catheterization With Stent, Orthopedic Surgery Additional Past Surgical History / Comment(s): metal plate right arm, oral macias rgery fracture jawed,hx gallstones Past Anesthesia/Blood Transfusion Reactions: No Reported Reaction Additional Past Anesthesia/Blood Transfusion Reaction / Comment(s): No blood transfusion Date of Last Stent Placement:: 2021 Past Psychological History: Anxiety, Depression Smoking Status: Former smoker Past Alcohol Use History: None Reported Past Drug Use History: None Reported - Past Family History Mother Family Medical History: Cancer Additional Family Medical History / Comment(s): uterine, breast, lymph nodes Medications and Allergies Home Medications Medication Instructions Recorded Confirmed Type Apixaban [Eliquis] 5 mg PO BID 10/26/22 07/23/23 History Atorvastatin [Lipitor] 40 mg PO HS 10/26/22 07/23/23 History Cetirizine HCl 10 mg PO DAILY 10/26/22 07/23/23 History FLUoxetine HCL [PROzac] 40 mg PO DAILY@1200 10/26/22 07/23/23 History Folic Acid 1 mg PO DAILY 10/26/22 07/23/23 History Gabapentin [Neurontin] 300 mg PO BID 10/26/22 07/23/23 History HYDROcodone/APAP 5-325MG [[place] 1 tab PO TID 10/26/22 07/23/23 History 5-325] Mirtazapine [Remeron] 15 mg PO HS 10/26/22 07/23/23 History Montelukast [Singulair] 10 mg PO DAILY 10/26/22 07/23/23 History Dulaglutide [Trulicity] 1.5 mg SQ SA 06/21/23 07/23/23 History Ergocalciferol [Vitamin D2 (1250 1,250 mcg PO SA 06/21/23 07/23/23 History Mcg = 87350 Iu)] Ipratropium-Albuterol Nebulize 3 ml INHALATION RT-QID 06/21/23 07/23/23 History [Duoneb 0.5 mg-3 mg/3 ml Soln] Omeprazole 20 mg PO DAILY 06/21/23 07/23/23 History lisinopriL [Zestril] 5 mg PO DAILY 06/21/23 07/23/23 History Fluticasone Nasal [place] [Flonase 2 spray EA NOSTRIL DAILY ml 06/27/23 07/23/23 Rx Nasal Mc[place]osh] Metoprolol Tartrate [Lopressor] 75 mg PO BID #180 tab 06/27/23 07/23/23 Rx guaiFENesin [Mucinex] 1,200 mg PO Q12HR tab 06/27/23 07/23/23 Rx Cephalexin [Keflex] 500 mg PO Q6HR 10 Days #40 cap 07/17/23 07/23/23 Rx Diltiazem Oral [Cardizem*] 60 mg PO TID #90 tab 07/17/23 07/23/23 Rx Furosemide [Lasix] 40 mg PO BID@0900,1600 #60 tab 07/17/23 07/23/23 Rx Allergies Allergy/AdvReac Type Severity Reaction Status Date / Time ibuprofen Allergy Rash/Hives Verified 07/23/23 07:11 NSAIDS (Non-Steroidal Allergy Rash/Hives Verified 07/23/23 07:11 Anti-Inflamma tetracycline Allergy Rash/Hives Verified 07/23/23 07:11 Physical Exam Vitals: Vital Signs Temp Pulse Pulse Resp BP Pulse Ox 07/24/23 12:08 96 07/24/23 12:01 88 07/24/23 09:32 96 07/24/23 09:24 95 95 07/24/23 08:31 94 L 07/24/23 08:00 97.5 F L 95 19 123/81 96 07/24/23 01:42 97.7 F 84 20 104/70 92 L 07/23/23 20:46 88 07/23/23 20:33 87 07/23/23 20:00 98.6 F 87 22 108/73 92 L 07/23/23 15:32 99 07/23/23 15:22 107 H Intake and Output 07/23/23 07/24/23 07/24/23 22:59 06:59 14:59 Intake Total 1580 Balance 1580 Intake: Intake, IV Titration 500 Amount Vancomycin 2,000 mg In 500 Sodium Chloride 0.9% 500 ml 500 ml @ 167 mls/hr IVPB Q8H [facility] Rx#: [id number] Oral 1080 Other: Voiding Method Toilet Toilet # Voids 4 Weight 127.006 kg Results 07/24/23 10:46 07/24/23 10:46 Cardiac Enzymes 07/24/23 Range/Units 10:46 AST 26 (14-36) U/L CBC 07/24/23 Range/Units 10:46 WBC 6.6 (3.8-10.6) k/uL RBC 4.16 (3.80-5.40) m/uL Hgb 11.1 L (11.4-16.0) gm/dL Hct 37.4 (34.0-46.0) % Plt Count 414 (150-450) k/uL Comprehensive Metabolic Panel 07/24/23 07/24/23 Range/Units 10:46 10:46 Sodium 140 (137-145) mmol/L Potassium 4.3 (3.5-5.1) mmol/L Chloride 101 (98-107) mmol/L Carbon Dioxide 32 H (22-30) mmol/L BUN 19 H (7-17) mg/dL Creatinine 0.45 L 0.47 L (0.52-1.04) mg/dL Glucose 149 H (74-99) mg/dL Calcium 8.8 (8.4-10.2) mg/dL AST 26 (14-36) U/L ALT 28 (4-34) U/L Alkaline Phosphatase 114 (38-126) U/L Total Protein 6.7 (6.3-8.2) g/dL Albumin 3.7 (3.5-5.0) g/dL Current Medications Generic Name Dose Route Start Last Admin Trade Name Freq PRN Reason Stop Dose Admin Acetaminophen 650 mg 07/22/23 22:45 Acetaminophen Tab 325 Mg Tab PO Q4HR PRN Mild Pain or Fever > 100.5 Hydrocodone Bitart/Acetaminophen 1 each 07/23/23 09:00 07/24/23 08:16 Hydrocodone/Apap 5-325mg 1 Each Tab PO 1 each TID SHAWNA Administration Albuterol/Ipratropium 3 ml 07/22/23 22:45 Ipratropium-Albuterol 3 Ml Neb INHALATION RT-Q2H PRN Shortness Of Breath Or Wheezing Albuterol/Ipratropium 3 ml 07/23/23 08:00 07/24/23 12:00 Ipratropium-Albuterol 3 Ml Neb INHALATION 3 ml RT-QID SHAWNA Administration Apixaban 5 mg 07/23/23 09:00 07/24/23 08:16 Apixaban 5 Mg Tab PO 5 mg BID SHAWNA Administration Protocol Atorvastatin Calcium 40 mg 07/23/23 21:00 07/23/23 21:00 Atorvastatin 40 Mg Tab PO 40 mg HS SHAWNA Administration Dextrose/Water 25 ml 07/23/23 02:31 Dextrose 50% Syringe 50 Ml IVP PER PROTOCOL PRN Hypoglycemia Protocol Dextrose/Water 50 ml 07/23/23 02:31 Dextrose 50% Syringe 50 Ml IVP PER PROTOCOL PRN Hypoglycemia Protocol Diltiazem HCl 60 mg 07/23/23 02:30 07/24/23 08:17 Diltiazem Oral 60 Mg Tab PO 60 mg TID SHAWNA Administration Ergocalciferol 1,250 mcg 07/28/23 09:00 Ergocalciferol 1,250 Mcg (50,000 Iu) Capsule PO SA SHAWNA Fluoxetine HCl 40 mg 07/24/23 12:00 07/24/23 12:26 Fluoxetine Hcl 20 Mg Cap PO 40 mg DAILY@1200 SHAWNA Administration Fluticasone Propionate 2 spray 07/24/23 09:00 07/24/23 08:18 Fluticasone 50mcg/[place] Nasal 16gm EA NOSTRIL 2 spray DAILY SHAWNA Administration Folic Acid 1 mg 07/24/23 09:00 07/24/23 08:16 Folic Acid 1 Mg Tab PO 1 mg DAILY SHAWNA Administration Furosemide 40 mg 07/23/23 09:00 07/24/23 08:18 Furosemide 10 Mg/Ml 4 Ml Vial IV 40 mg Q12HR [facility]NA Administration Gabapentin 300 mg 07/23/23 09:00 07/24/23 08:16 Gabapentin 300 Mg Cap PO 300 mg BID SHAWNA Administration Guaifenesin 1,200 mg 07/23/23 21:00 07/24/23 08:16 Guaifenesin 600 Mg Tablet.Er PO 1,200 mg Q12HR [facility]NA Administration Vancomycin HCl 2,000 mg/ 500 mls @ 167 mls/hr 07/23/23 16:00 07/24/23 08:17 Sodium Chloride IVPB 167 mls/hr Q8H [facility] Administration Insulin Aspart 0 unit 07/23/23 07:30 07/24/23 12:26 Insulin Aspart (Novolog) 100 Unit/Ml Vial SQ 6 unit ACHS SHAWNA Administration Protocol Lisinopril 5 mg 07/23/23 09:00 07/24/23 08:17 Lisinopril 5 Mg Tab PO 5 mg DAILY SHAWNA Administration Loratadine 10 mg 07/24/23 09:00 07/24/23 08:16 Loratadine 10 Mg Tab PO 10 mg DAILY SHAWNA Administration Methylprednisolone Sodium Succinate 60 mg 07/23/23 00:00 07/24/23 08:18 Methylprednisolone Sod Succi 125 Mg/2 Ml Vial IV 60 mg Q8HR [facility] Administration Metoprolol Tartrate 100 mg 07/24/23 21:00 Metoprolol Tartrate 25 Mg Tab PO BID SHAWNA Metoprolol Tartrate 25 mg 07/24/23 12:45 Metoprolol Tartrate 25 Mg Tab PO 07/24/23 12:46 ONCE STA Mirtazapine 15 mg 07/23/23 21:00 07/23/23 21:00 Mirtazapine 15 Mg Tab PO 15 mg HS SHAWNA Administration Montelukast Sodium 10 mg 07/23/23 09:00 07/24/23 08:16 Montelukast 10 Mg Tab PO 10 mg DAILY [facility] Administration Naloxone HCl 0.2 mg 07/22/23 22:45 Naloxone 0.4 Mg/Ml 1 Ml Vial IVP Q2M PRN Opioid Reversal Pantoprazole Sodium 40 mg 07/23/23 07:30 07/24/23 06:46 Pantoprazole 40 Mg Tablet PO 40 mg [id number] SHAWNA Administration Intake and Output 07/23/23 07/24/23 07/24/23 22:59 06:59 14:59 Intake Total 1580 Balance 1580 Intake: Intake, IV Titration 500 Amount Vancomycin 2,000 mg In 500 Sodium Chloride 0.9% 500 ml 500 ml @ 167 mls/hr IVPB Q8H [facility] Rx#: [id number] Oral 1080 Other: Voiding Method Toilet Toilet # Voids 4 Weight 127.006 kg Patient Weight 07/25/23 06:59 Weight 127.006 kg 07/24/23 10:46 07/24/23 10:46
--- NOTE | 2023-07-24 14:00 | P.PN ---
Subjective Progress Note Date: 07/24/23 This is a 57-year-old female patient was hospitalized for worsening shortness of breath. She is morbidly obese with a body mass index of 49.6. She is known to have COPD in addition to obstructive sleep apnea and the patient underwent a recent sleep evaluation during which the patient was found to have severe symptomatic obstructive sleep apnea with an AHI of 41.8 and the patient was given CPAP therapy pressure of 11 cm of water. She has advanced COPD with chronic hypoxic and hypercapnic respiratory failure, chronic A-fib, hypertension hyperlipidemia in addition to coronary artery disease with previous coronary stenting and chronic anxiety and depression. Her last hospitalization was few weeks back and the patient was in the hospital for right lower extremity cellulitis and the patient was seen by the hospitalist group and she was discharged home on Keflex 500 mg p.o. 4 times a day. The patient has chronic hypoxic respiratory failure maintained on oxygen 3 L at all times. She has chronic diastolic heart failure in addition. Another issue was a fall as the patient tripped and she had sustained a trauma to her face and head with multiple facial bone fractures seen at [facility] and discharged without any further interventions. The The patient is coming in with exertional dyspnea and hypoxemia and the patient has developed drop in pulse ox while being on 3 days of oxygen by nasal cannula. She is currently on 4 L. She had increased lower extremity edema. Chest x-ray showing cardiomegaly with pulm vessel congestion. BUN is at 16 with a creatinine 0.4. White cell count of 5.1 with a hemoglobin of 10.7. proBNP level is 2660 and troponins are negative. No angina. No altered mentation. On today's evaluation of 07/24/2023, the patient continues to have edema lower extremities bilaterally. She is responding to diuretics and the patient is currently on 40 mg IV Lasix every 12 hours. As far as her COPD exacerbation, the patient is on DuoNeb updrafts [id number] and patient is also on IV Solu-Medrol 60 mg every 6 hours. No nausea. No vomiting. No emesis. No chest pain. No altered mentation. Pulse ox is currently at 95% on 4 L of oxygen by n naty cannula. The white cell count is at 6.6 with a hemoglobin 11.1 and a platelet count of 414. BUN is at 19 with a creatinine of 0.4. Vancomycin trough was 36. Sodium is at 140 with a potassium level of 4.3 and the BUN is at 19 with a creatinine of 0.4. Objective - Vital Signs Vital signs: Vital Signs Temp 97.5 F L 07/24/23 08:00 Pulse 88 07/24/23 12:01 Resp 19 07/24/23 08:00 BP 123/81 07/24/23 08:00 Pulse Ox 95 07/24/23 09:24 FiO2 35 07/23/23 03:42 Intake & Output 07/23/23 07/24/23 07/24/23 18:59 06:59 18:59 Intake Total 1580 Balance 1580 Weight 127.006 kg Intake: Intake, IV Titration 500 Amount Vancomycin 2,000 mg In 500 Sodium Chloride 0.9% 500 ml 500 ml @ 167 mls/hr IVPB Q8H [facility] Rx#: [id number] Oral 1080 Other: Voiding Method Toilet Toilet # Voids 4 - Exam No acute distress, oriented x 3. Currently on 4 L of oxygen. Her cough is wet and congested sounding. No use of accessory muscles, or conversational dyspnea. There is evidence of subcutaneous ecchymotic changes over the forehead and the face related to recent fall and trauma to her head. She has also a area of laceration that has been staged. The sutures are still in place. Head exam was generally normal. There was no scleral icterus or corneal arcus. Mucous membranes were moist. HEENT examination is grossly unremarkable. Mucous membranes are moist. No oral lesions. Neck supple. Full range of motion. No adenopathy thyromegaly or neck vein distention. Cardiovascular examination reveals regular rhythm rate. S1-S2 normal. No S3 or S4. No discernible murmur noted. H Heart sounds are distant. Lungs reveal inspiratory and expiratory wheezes and rhonchi. No crackles. B reath sounds equal bilaterally. Abdomen soft bowel sounds are heard. No masses or tenderness. Extremities are intact. No cyanosis clubbing there is increased edema lower extremities bilaterally and the patient has +1 pitting edema and there is no active cellulitis in the right lower extremity chavez wound has essentially healed. Skin is without rash or lesion. Neurologic examination is brief but nonfocal. - Labs CBC & Chem 7: 07/24/23 10:46 07/24/23 10:46 Labs: Abnormal Lab Results - Last 24 Hours (Table) 07/23/23 07/23/23 07/24/23 Range/Units 17:32 20:33 06:06 Hgb (11.4-16.0) gm/dL MCHC (31.0-37.0) g/dL RDW (11.5-15.5) % Carbon Dioxide (22-30) mmol/L BUN (7-17) mg/dL Creatinine (0.52-1.04) mg/dL Glucose (74-99) mg/dL POC Glucose (mg/dL) 210 H 232 H 181 H (70-110) mg/dL Hemoglobin A1c (<=6.0) % C-Reactive Protein (<1.0) mg/dL Vancomycin Trough ug/mL 07/24/23 07/24/23 07/24/23 Range/Units 06:23 10:46 10:46 Hgb (11.4-16.0) gm/dL MCHC (31.0-37.0) g/dL RDW (11.5-15.5) % Carbon Dioxide (22-30) mmol/L BUN (7-17) mg/dL Creatinine 0.45 L (0.52-1.04) mg/dL Glucose (74-99) mg/dL POC Glucose (mg/dL) (70-110) mg/dL Hemoglobin A1c 7.0 H (<=6.0) % C-Reactive Protein (<1.0) mg/dL Vancomycin Trough 36.6 H* ug/mL 07/24/23 07/24/23 07/24/23 Range/Units 10:46 10:46 11:51 Hgb 11.1 L (11.4-16.0) gm/dL MCHC 29.7 L (31.0-37.0) g/dL RDW 16.3 H (11.5-15.5) % Carbon Dioxide 32 H (22-30) mmol/L BUN 19 H (7-17) mg/dL Creatinine 0.47 L (0.52-1.04) mg/dL Glucose 149 H (74-99) mg/dL POC Glucose (mg/dL) 218 H (70-110) mg/dL Hemoglobin A1c (<=6.0) % C-Reactive Protein 4.6 H (<1.0) mg/dL Vancomycin Trough ug/mL Assessment and Plan Plan: Acute hypoxemic respiratory failure secondary to COPD exacerbation, and fluid overload. I think the patient has some increasing interstitial edema bilaterally in addition to increased lower extremity edema bilaterally. Currently she is on 4 L of oxygen by nasal cannula. No clear indication for underlying pneumonia. Acute on chronic dyspnea likely secondary to fluid overload and a component of COPD/asthma exacerbation. Chronic hypoxic/hypercapnic respiratory failure, please refer to previous blood gas done on this patient. Severe obstructive sleep apnea with an AHI of 41 and the patient has been titrated to a CPAP pressure of 11 cm of water Recent fall and head trauma with fracture of facial bones with areas of skin bruising. No open wounds at this point in time. I suspect that her baseline pCO2 is in the 50s. Childhood asthma and the patient reports that she was intubated in the past on multiple occasions as a child in [facility]. Body mass index of above 50 Prior history of significant tobacco use. Multiple hospitalizations most recent of which was attributed to the right lower extremity cellulitis, treated with Keflex MRSA in the sputum cultures on 07/03/2023 History of atrial fibrillation. Rate is controlled and the patient is on long-term anticoagulation with Eliquis. The rate is controlled at this point in time History of hyperlipidemia. History of hypertension. History of coronary artery disease, with previous PCI/stent placement. History of myocardial infarction. Chronic anxiety/depression. Plan Clinically slightly improved compared to yesterday Will asked the patient to utilize her own CPAP machine from home. If not, we will going to provide her a CPAP machine the pressure of 11 cm of water DuoNeb nebulizer treatments 4 times a day [id number] IV Lasix 40 mg every 12 hours, producing adequate amount of urine output although she continues to have signs of fluid overload IV Solu-Medrol to be continued for another 24 hours Monitor electrolytes Antibiotics per medical group Resume home medications No signs of any CO2 narcosis Previous echocardiogram showed a preserved LV function with an ejection fraction of 50 to 55% Will continue to follow
[2023-07-24] MEDS: METOPROLOL TARTRATE 25 MG TAB PO STA (14:32)
[2023-07-24] MEDS: MAGNESIUM OXIDE 400 MG TAB PO STA (14:32)
[2023-07-24 16:29] LABS: Erythrocyte Sedimentation Rate 91 mm/Hr (0-30)
[2023-07-24 16:47] LABS: Glucose,Whole Blood 211 mg/dL (70-110)
[2023-07-24 20:19] LABS: Glucose,Whole Blood 173 mg/dL (70-110)
[2023-07-24] MEDS: VANCOMYCIN 2,000 MG in SODIUM CHLORIDE 0.9% 500 ML 500 ML IVPB SCH (20:36)
[2023-07-24] MEDS: METOPROLOL TARTRATE 50 MG TAB PO SCH (21:30)
--- NOTE | 2023-07-24 21:56 | P.CONS ---
History of Present Illness - Reason for Consult Consult date: 07/24/23 Lower extremity cellulitis Requesting physician: Kush Segovia - Chief Complaint Increasing shortness of breath and leg swelling x days - History of Present Illness Patient is a 57-year-old female with a past medical history significant for hypertension hyperlipidemia COPD atrial fibrillation asthma recently admitted to the hospital did have bilateral lower extremity cellulitis for the patient was treated with IV cefazolin subsequent discharged on Keflex patient now presenting back to the hospital on 07/22/2023 for evaluation of increasing shortness of breath that apparently has been getting worse for the last few days and apparently the patient was also hypoxic with O2 sats in the 80s patient denies having any headache or URI symptoms denies any high-grade fever or any chills has been complaining of shortness of breath on minimal exertion and even at rest denies significant chest pain she did have a cough not bring up any sputum no nausea no vomiting no abdominal pain or diarrhea patient did have swelling to bilateral lower extremity however overall redness has decreased currently no open wound or any drainage on presentation to the hospital the patient was afebrile and no fever has been recorded subsequently patient was not tachycardic or hypotensive patient was hypoxic on supplemental oxygen patient white count was 5.1 creatinine 0.47 electrolytes are normal liver enzymes are normal vancomycin trough is 36.6 patient chest x-ray cardiomegaly mild pulmonary vascular congestion infectious disease was consulted for further management of antibiotic therapy or right lower extremity cellulitis Review of Systems Positive point and negatives has been mentioned in the HPI, complete review of systems was performed and all other systems are negative Past Medical History Past Medical History: Atrial Fibrillation, Asthma, COPD, Hyperlipidemia, Hypertension, Myocardial Infarction (SD), Respiratory Disorder Additional Past Medical History / Comment(s): wears oxygen 3lnc when mobile Last Myocardial Infarction Date:: 2021 History of Any Multi-Drug Resistant Organisms: None Reported Past Surgical History: Heart Catheterization With Stent, Orthopedic Surgery Additional Past Surgical History / Comment(s): metal plate right arm, oral surgery fracture jawed,hx gallstones Past Anesthesia/Blood Transfusion Reactions: No Reported Reaction Additional Past Anesthesia/Blood Transfusion Reaction / Comm: No blood transfusion Date of Last Stent Placement:: 2021 Past Psychological History: Anxiety, Depression Smoking Status: Former smoker Past Alcohol Use History: None Reported Past Drug Use History: None Reported - Past Family History Mother Family Medical History: Cancer Additional Family Medical History / Comment(s): uterine, breast, lymph nodes Medications and Allergies Home Medications Medication Instructions Recorded Confirmed Type Apixaban [Eliquis] 5 mg PO BID 10/26/22 07/23/23 History Atorvastatin [Lipitor] 40 mg PO HS 10/26/22 07/23/23 History Cetirizine HCl 10 mg PO DAILY 10/26/22 07/23/23 History FLUoxetine HCL [PROzac] 40 mg PO DAILY@1200 10/26/22 07/23/23 History Folic Acid 1 mg PO DAILY 10/26/22 07/23/23 History Gabapentin [Neurontin] 300 mg PO BID 10/26/22 07/23/23 History HYDROcodone/APAP 5-325MG [[place] 1 tab PO TID 10/26/22 07/23/23 History 5-325] Mirtazapine [Remeron] 15 mg PO HS 10/26/22 07/23/23 History Montelukast [Singulair] 10 mg PO DAILY 10/26/22 07/23/23 History Dulaglutide [Trulicity] 1.5 mg SQ SA 06/21/23 07/23/23 History Ergocalciferol [Vitamin D2 (1250 1,250 mcg PO SA 06/21/23 07/23/23 History Mcg = 34897 Iu)] Ipratropium-Albuterol Nebulize 3 ml INHALATION RT-QID 06/21/23 07/23/23 History [Duoneb 0.5 mg-3 mg/3 ml Soln] Omeprazole 20 mg PO DAILY 06/21/23 07/23/23 History lisinopriL [Zestril] 5 mg PO DAILY 06/21/23 07/23/23 History Fluticasone Nasal [place] [Flonase 2 spray EA NOSTRIL DAILY ml 06/27/23 07/23/23 Rx Nasal [place]] guaiFENesin [Mucinex] 1,200 mg PO Q12HR tab 06/27/23 07/23/23 Rx Cephalexin [Keflex] 500 mg PO Q6HR 10 Days #40 cap 07/27/23 Rx Furosemide [Lasix] 40 mg PO BID@0900,1600 #60 tab 07/27/23 Rx Metoprolol Tartrate [Lopressor] 100 mg PO BID #60 tab 07/27/23 Rx predniSONE See Taper PO DIRECTED #30 tab 07/27/23 Rx Allergies Allergy/AdvReac Type Severity Reaction Status Date / Time ibuprofen Allergy Rash/Hives Verified 07/23/23 07:11 NSAIDS (Non-Steroidal Allergy Rash/Hives Verified 07/23/23 07:11 Anti-Inflamma tetracycline Allergy Rash/Hives Verified 07/23/23 07:11 Physical Exam Vitals: Vital Signs Temp Pulse Pulse Resp BP Pulse Ox 07/24/23 09:32 96 07/24/23 09:24 95 95 07/24/23 08:31 94 L 07/24/23 08:00 97.5 F L 95 19 123/81 96 07/24/23 01:42 97.7 F 84 20 104/70 92 L 07/23/23 20:46 88 07/23/23 20:33 87 07/23/23 20:00 98.6 F 87 22 108/73 92 L 07/23/23 15:32 99 07/23/23 15:22 107 H Intake and Output 07/23/23 07/24/23 07/24/23 22:59 06:59 14:59 Intake Total 1580 Balance 1580 Intake: Intake, IV Titration 500 Amount Vancomycin 2,000 mg In 500 Sodium Chloride 0.9% 500 ml 500 ml @ 167 mls/hr IVPB Q8H [facility] Rx#: [id number] Oral 1080 Other: Voiding Method Toilet Toilet # Voids 4 Weight 127.006 kg GENERAL DESCRIPTION: Middle-aged female lying in bed, no distress. No tachypnea or accessory muscle of respiration use. HEENT: Shows Pallor , no scleral icterus. Oral mucous membrane is dry. No pharyngeal erythema or thrush NECK: Trachea central, no thyromegaly. LUNGS: Unlabored breathing. Coarse breath sounds bilaterally HEART: S1, S2, regular rate and rhythm. No loud murmur ABDOMEN: Soft, no tenderness , guarding or rigidity, no organomegaly EXTREMITIES: Diffuse swelling bilateral lower extremity right more than left SKIN: No rash, no masses palpable. NEUROLOGICAL: The patient is awake, alert, oriented x3, mood and affect normal. Results CBC & Chem 7: 07/25/23 06:01 07/27/23 07:18 Labs: Abnormal Lab Results - Last 24 Hours (Table) 07/23/23 07/23/23 07/24/23 Range/Units 17:32 20:33 06:06 Hgb (11.4-16.0) gm/dL MCHC (31.0-37.0) g/dL RDW (11.5-15.5) % POC Glucose (mg/dL) 210 H 232 H 181 H (70-110) mg/dL Hemoglobin A1c (<=6.0) % 07/24/23 07/24/23 Range/Units 06:23 10:46 Hgb 11.1 L (11.4-16.0) gm/dL MCHC 29.7 L (31.0-37.0) g/dL RDW 16.3 H (11.5-15.5) % POC Glucose (mg/dL) (70-110) mg/dL Hemoglobin A1c 7.0 H (<=6.0) % Assessment and Plan (1) Bilateral lower leg cellulitis Current Visit: No Status: Acute Code(s): L03.116 - CELLULITIS OF LEFT LOWER LIMB; L03.115 - CELLULITIS OF RIGHT LOWER LIMB SNOMED Code(s): 679368038 Plan: 1patient presented to hospital with increasing shortness of breath which is more likely related to Cardiac etiology in this patient with evidence of fluid overload with evidence of diffuse and bilateral lower extremity and a component of cellulitis more likely streptococcal disease clinically doubt MRSA or gram-negative infection patient not running any fever white count is normal 2-patient with elevated vancomycin trough and high risk of nephrotoxicity 3-discontinue vancomycin 4-start the patient cefazolin 3 g every 8 hours and monitor clinical course closely We will follow on clinical condition and cultures to further adjust medication if needed Thank you for this consultation we will follow the patient along with you Dictation was produced using [employer] dictation software. please excuse any grammatical, word or spelling errors. Time with Patient: Greater than 30
[2023-07-24] MEDS: ceFAZolin 3 GM in SODIUM CHLORIDE 0.9% 100 ML IVPB SCH (23:42)
[2023-07-25 06:01] LABS: Glucose,Whole Blood 160 mg/dL (70-110)
--- NOTE | 2023-07-25 08:54 | P.PN ---
Subjective HISTORY OF PRESENT ILLNESS: This is a 57-year-old female with a past medical history significant for COPD, atrial fibrillation, coronary artery disease, hypertension, hyperlipidemia, and morbid obesity. Patient follows in the office with Dr. Owens. We have been asked to see the patient in consultation for congestive heart failure. Patient exam ined at the bedside. Patient presented to the hospital with a chief complaint of shortness of breath and lower extremity edema. The patient states that she was previously on Norvasc which was discontinued secondary to lower extremity edema. She states that she was switched to Cardizem and is concerned that the Cardizem may be contributing to lower extremity edema. The patient was found to be in congestive heart failure and was started on IV Lasix. She is currently receiving IV Lasix 40 mg every 12 hours. She is also being treated for a COPD exacerbation with IV steroids. Patient is also receiving IV antibiotics for right lower extremity cellulitis. Vital signs are stable. DIAGNOSTICS: - EKG reveals atrial fibrillation with controlled ventricular rate. - Chest xray cardiomegaly and mild pulmonary vascular congestion.. - Laboratory data: WBC 6.6. Hemoglobin 11.1. Platelet count 414. Sodium 140. Potassium 4.3. BUN 19. Creatinine 0.47. proBNP 2660. - Current home cardiac medications include lisinopril 5 mg daily, metoprolol tartrate 75 mg twice a day, Lasix 40 mg twice a day, Cardizem 60 mg 3 times a day, Lipitor 40 mg at night, Eliquis 5 mg twice a day. - Most recent echocardiogram obtained in May 2023 revealed ejection fraction 50 to 55%, trace MR - Cardiac catheterization history: 2021 per patient, however records are unavailable at this time 07/25/2023 Patient examined this morning. She is sitting up in the chair. Patient denies chest pain or pressure. She reports mild shortness of breath. She remains on IV Lasix. Patient did refuse her evening dose of Lasix last night because she did not want to be up urinating. Vital signs are stable. Telemetry reveals atrial fibrillation with heart rate around 100. Blood pressure 119/84. PHYSICAL EXAM: VITAL SIGNS: Reviewed. GENERAL: Well-developed in no acute distress. HEENT: Head is normocephalic. Pupils are equal, round. Sclerae anicteric. Mucous membranes of the mouth are moist. Neck supple. No JVD or thyromegaly LUNGS: Respirations even and unlabored. Lungs diminished with bibasilar crackles HEART: Irregular rate and rhythm. S1 and S2 heard. ABDOMEN: Soft. Nondistended. Nontender. EXTREMITIES: Normal range of motion. No clubbing or cyanosis. Peripheral pulses intact. 2+ bilateral lower extremity edema with evidence of mild cellulitis to right lower extremity. Haresh wraps noted. NEUROLOGIC: Awake and alert. Oriented x 3. ASSESSMENT: Shortness of breath Acute heart failure with preserved LV function, EF 50 to 55% Acute COPD exacerbation Acute on chronic hypoxic respiratory failure requiring supplemental oxygen Right lower extremity cellulitis Persistent atrial fibrillation Coronary artery disease with previous PCI, details unknown Hypertension Hyperlipidemia Former nicotine dependence Morbid obesity PLAN: No need to repeat echocardiogram as this was performed in May 2023 Continue current cardiac medications Continue to hold Cardizem Continue current dose of metoprolol 100 mg twice a day Continue IV Lasix 40 mg. Will change dosages to be timed at 0900 and 1600 as patient refused 2100 dose last night as she did not want to be up at night urinating Daily weights, accurate I&O, and monitoring of kidney function Further recommendations pending patient course Nurse practitioner note has been reviewed by physician. Signing provider agrees with the documented findings, assessment, and plan of care documented by QUILL SKINNER as a scribe. Objective - Vital Signs Vital signs: Vital Signs Temp 97.7 F 07/25/23 07:18 Pulse 66 07/25/23 07:18 Resp 19 07/25/23 07:18 BP 119/84 07/25/23 07:18 Pulse Ox 97 07/25/23 07:18 FiO2 35 07/23/23 03:42 Intake & Output 07/24/23 07/25/23 07/25/23 18:59 06:59 18:59 Weight 127.006 kg Other: Voiding Method Toilet Toilet Toilet # Voids 4 - Labs CBC & Chem 7: 07/24/23 10:46 07/24/23 10:46 Labs: Abnormal Lab Results - Last 24 Hours (Table) 07/24/23 07/24/23 07/24/23 Range/Units 06:23 10:46 10:46 Hgb (11.4-16.0) gm/dL MCHC (31.0-37.0) g/dL RDW (11.5-15.5) % ESR (0-30) mm/Hr Carbon Dioxide (22-30) mmol/L BUN (7-17) mg/dL Creatinine 0.45 L (0.52-1.04) mg/dL Glucose (74-99) mg/dL POC Glucose (mg/dL) (70-110) mg/dL Hemoglobin A1c 7.0 H (<=6.0) % C-Reactive Protein (<1.0) mg/dL Vancomycin Trough 36.6 H* ug/mL 07/24/23 07/24/23 07/24/23 Range/Units 10:46 10:46 11:51 Hgb 11.1 L (11.4-16.0) gm/dL MCHC 29.7 L (31.0-37.0) g/dL RDW 16.3 H (11.5-15.5) % ESR 91 H (0-30) mm/Hr Carbon Dioxide 32 H (22-30) mmol/L BUN 19 H (7-17) mg/dL Creatinine 0.47 L (0.52-1.04) mg/dL Glucose 149 H (74-99) mg/dL POC Glucose (mg/dL) 218 H (70-110) mg/dL Hemoglobin A1c (<=6.0) % C-Reactive Protein 4.6 H (<1.0) mg/dL Vancomycin Trough ug/mL 07/24/23 07/24/23 07/25/23 Range/Units 16:46 20:17 05:59 Hgb (11.4-16.0) gm/dL MCHC (31.0-37.0) g/dL RDW (11.5-15.5) % ESR (0-30) mm/Hr Carbon Dioxide (22-30) mmol/L BUN (7-17) mg/dL Creatinine (0.52-1.04) mg/dL Glucose (74-99) mg/dL POC Glucose (mg/dL) 211 H 173 H 160 H (70-110) mg/dL Hemoglobin A1c (<=6.0) % C-Reactive Protein (<1.0) mg/dL Vancomycin Trough ug/mL Microbiology - Last 24 Hours (Table) 07/23/23 03:47 Blood Culture - Preliminary Blood 07/23/23 03:32 Blood Culture - Preliminary Blood
[2023-07-25 09:11] LABS: HCT 34.3 % (37.2-46.3); HGB 10.4 g/dL (12.0-15.0); MCH 27.7 pg (27.0-32.0); MCHC 30.3 g/dL (32.0-37.0); MCV 91.5 FL (80.0-97.0); Mean Platelet Volume 10.8 FL (9.5-12.2); NRBC Per 100 WBC 0.03 X 10*3/uL (0.00-0.01); Platelet Count 396 X 10*3/uL (140-440); RBC 3.75 X 10*6/uL (4.10-5.20); RDW 16.8 % (11.5-14.5); WBC 6.51 X 10*3/uL (4.50-10.00)
[2023-07-25 09:13] LABS: ALT 30 U/L (8-44); AST 12 U/L (13-35); Albumin 3.5 g/dL (3.8-4.9); Alkaline Phosphatase 94 U/L (41-126); Blood Urea Nitrogen 22.2 mg/dL (9.0-27.0); Calcium 9.1 mg/dL (8.7-10.3); Chloride 101 mmol/L (96-109); Globulin 2.7 g/dL (1.6-3.3); Glucose 149 mg/dL (70-110); Magnesium 1.9 mg/dL (1.5-2.4); Potassium 4.7 mmol/L (3.5-5.5); Sodium 141 mmol/L (135-145); Total Bilirubin <0.2 mg/dL (0.3-1.2); Total Protein 6.2 g/dL (6.2-8.2)
[2023-07-25] MEDS ORDERED: VANCOMYCIN TROUGH DUE 1 EACH MISC MISCELLANE ONE (11:00)
[2023-07-25 11:39] LABS: Glucose,Whole Blood 196 mg/dL (70-110)
--- NOTE | 2023-07-25 12:10 | P.PN ---
Subjective Progress Note Date: 07/25/23 Principal diagnosis: Reason for follow-up is bilateral lower extremity cellulitis Patient is a 57-year-old female with a past medical history significant for hypertension hyperlipidemia COPD atrial fibrillation asthma presented to the hospital with increasing shortness of breath also noticed to have lower extremity swelling and redness concerning for cellulitis. On today's evaluation that is 07/25/2023, the patient continues to be afebrile, the patient is on 4 L nasal cannula oxygen and breathing comfortably, the Pt denies having any chest pain or cough, the patient denies having any abdominal pain no vomiting or any diarrhea has been reported by the nursing staff, denies any worsening pain to the lower extremity. Patient white count is 6.51, creatinine 0.6 Objective - Vital Signs Vital signs: Vital Signs Temp 97.7 F 07/25/23 07:18 Pulse 100 07/25/23 09:49 Resp 19 07/25/23 07:18 BP 119/84 07/25/23 07:18 Pulse Ox 97 07/25/23 07:18 FiO2 35 07/23/23 03:42 Intake & Output 07/24/23 07/25/23 07/25/23 18:59 06:59 18:59 Weight 127.006 kg Other: Voiding Method Toilet Toilet Toilet # Voids 4 2 - Exam GENERAL DESCRIPTION: Middle-aged female lying in bed in no distress RESPIRATORY SYSTEM: Unlabored breathing , decreased breath sounds at bases HEART: S1 S2 regular rate and rhythm , ABDOMEN: Soft , no tenderness EXTREMITIES: bilateral lower extremity swelling redness slightly decreased - Labs CBC & Chem 7: 07/25/23 06:01 07/25/23 06:01 Labs: Abnormal Lab Results - Last 24 Hours (Table) 07/24/23 07/24/23 07/24/23 Range/Units 10:46 16:46 20:17 RBC (4.10-5.20) X 10*6/uL Hgb (12.0-15.0) g/dL Hct (37.2-46.3) % MCHC (32.0-37.0) g/dL RDW (11.5-14.5) % NRBC/100 WBC Diff (0.00-0.01) X 10*3/uL ESR 91 H (0-30) mm/Hr BUN/Creatinine Ratio (12.00-20.00) Ratio Glucose (70-110) mg/dL POC Glucose (mg/dL) 211 H 173 H (70-110) mg/dL Total Bilirubin (0.3-1.2) mg/dL AST (13-35) U/L Albumin (3.8-4.9) g/dL Albumin/Globulin Ratio (1.60-3.17) Ratio 07/25/23 07/25/23 07/25/23 Range/Units 05:59 06:01 06:01 RBC 3.75 L (4.10-5.20) X 10*6/uL Hgb 10.4 L (12.0-15.0) g/dL Hct 34.3 L (37.2-46.3) % MCHC 30.3 L (32.0-37.0) g/dL RDW 16.8 H (11.5-14.5) % NRBC/100 WBC Diff 0.03 H (0.00-0.01) X 10*3/uL ESR (0-30) mm/Hr BUN/Creatinine Ratio 37.00 H (12.00-20.00) Ratio Glucose 149 H (70-110) mg/dL POC Glucose (mg/dL) 160 H (70-110) mg/dL Total Bilirubin <0.2 L (0.3-1.2) mg/dL AST 12 L (13-35) U/L Albumin 3.5 L (3.8-4.9) g/dL Albumin/Globulin Ratio 1.30 L (1.60-3.17) Ratio 07/25/23 Range/Units 11:37 RBC (4.10-5.20) X 10*6/uL Hgb (12.0-15.0) g/dL Hct (37.2-46.3) % MCHC (32.0-37.0) g/dL RDW (11.5-14.5) % NRBC/100 WBC Diff (0.00-0.01) X 10*3/uL ESR (0-30) mm/Hr BUN/Creatinine Ratio (12.00-20.00) Ratio Glucose (70-110) mg/dL POC Glucose (mg/dL) 196 H (70-110) mg/dL Total Bilirubin (0.3-1.2) mg/dL AST (13-35) U/L Albumin (3.8-4.9) g/dL Albumin/Globulin Ratio (1.60-3.17) Ratio Microbiology - Last 24 Hours (Table) 07/23/23 03:47 Blood Culture - Preliminary Blood 07/23/23 03:32 Blood Culture - Preliminary Blood Assessment and Plan (1) Bilateral lower leg cellulitis Current Visit: No Status: Acute Code(s): L03.116 - CELLULITIS OF LEFT LOWER LIMB; L03.115 - CELLULITIS OF RIGHT LOWER LIMB SNOMED Code(s): 404971534 Plan: 1patient presented to hospital with increasing shortness of breath which is more likely related to Cardiac etiology in this patient with evidence of fluid overload with evidence of diffuse and bilateral lower extremity and a component of cellulitis more likely streptococcal disease clinically doubt MRSA or gram-negative infection patient not running any fever white count is normal 2-patient to continue with cefazolin 3 g every 8 hours and monitor clinical course closely Dictation was produced using [employer] dictation software. please excuse any grammatical, word or spelling errors. Time with Patient: Less than 30
--- NOTE | 2023-07-25 14:41 | P.PN ---
Subjective Progress Note Date: 07/25/23 Hospital course: Patient is a very pleasant 57-year-old female with a past medical history of CAD with stenting, chronic diastolic heart failure, hypertension, hyperlipidemia, chronic atrial fibrillation on anticoagulation with Eliquis, type II [id number] diabetes mellitus, severe obstructive sleep apnea CPAP dependent, and chronic hypoxic respiratory failure secondary to advanced COPD home oxygen dependent 3 L. She presented to the emergency department on 07/22/2025 with a chief complaint of shortness of breath. Patient was recently discharged from the hospital 5 days prior after being treated for right lower extremity cellulitis and CHF exacerbation. Patient reports status post discharge she had progressively worsening shortness of breath along with low oxygen levels reported to drop down into the 80s despite her supplemental oxygen. She underwent full evaluation in the emergency department. Vital signs upon arrival show blood pressure 113/74, heart rate 103, respiratory rate 22, temp 98.5 F, and SpO2 of 93% on 4 L O2. EKG completed upon arrival showing atrial fibrillation with a controlled ventricular rate of 89 bpm. Chest x-ray completed showing cardiomegaly and mild pulmonary vascular congestion. Patient was admitted under our services with consultation to cardiology and pulmonology. Physical exam: Patient seen and fully evaluated at bedside. She was making her way back from the restroom to the bed. Patient with increased respiratory effort, but recovered and was given a breathing treatment at this time. With the exception of persistent shortness of breath with exertion patient currently denies any oth er complaints or needs at this time. She reports mild pain to bilateral lower extremities currently controlled by medication regimen. Vital signs reviewed and stable. General: Nontoxic, no distress and appears stated age. Derm: Skin warm and dry, normal coloration for ethnicity. Head: Bruising and repaired laceration to right lateral forehead with [address] Eyes: Mild Periorbital echymosis surrounding right eye, bruising to right side of face. Mouth: no lip lesions, mucus membranes moist Cardiovascular irregularly irregular with normal S1S2, no murmur, positive posterior tibial pulses bilaterally, and cap refill < 2 seconds. Lungs: Respirations even, regular, and unlabored on supplemental oxygen. Lungs diminished, no rhonchi, no rales, no wheezing, and no accessory muscle usage. Abdominal: soft, nontender to palpation, no guarding, no appreciable organomegaly Ext: ROM intact. No gross muscle atrophy, 2+ BLE pitting edema, no contractures. Bilateral lower extremities with mild erythema worse on right, no open wounds or drainage. Neuro: Speech clear, face symmetrical and CN II-XII grossly intact with no noted focal neuro deficits Psych: Alert and oriented to person, place, time, and situation. Appropriate and pleasant affect. Assessment and Plan of Care: Acute on chronic hypoxic respiratory failure Acute on chronic diastolic heart failure exacerbation COPD with acute exacerbation, chronic oxygen dependently baseline 3 L at all times Severe obstructive sleep apnea Chronic atrial fibrillation on anticoagulation with Eliquis CAD with previous stent Hypertension Hyperlipidemia -Continue oxygen supplementation, patient's baseline oxygen needs 3 L at all times. May titrate as needed to maintain SpO2 equal to or greater than 90%. -Continue CPAP nightly and while napping. -Pulmonology following, reviewed documentation in chart -Cardiology consulted, reviewed documentation in chart -Continue scheduled DuoNebs 4 times daily and as needed for shortness of breath and/or wheezing, Flonase 2 sprays each nostril daily, and Singulair 10 mg nightly. -Steroids: Solu-Medrol 60 mg IVP every 8 hours -Lasix 40 mg IV twice daily -Continue strict I's and O's and daily weights -Telemetry monitoring Cellulitis right lower extremity, appears to be improving Bilateral lower extremity edema with venous stasis dermatitis, suspect swelling is results of venous insufficiency -Follow-up on blood cultures -Infectious disease following discontinuing vancomycin and starting patient on Kefzol 3 g every 8 hours -Symptomatic care and pain management. Continue use of Haresh wrap to bilateral lower extremities -Order placed for ESR and CRP -Fall precautions Type II uir-[id number]-[id number] diabetes mellitus. -Hold Trulicity and place patient on glycemic protocol with NovoLog sliding s macho. -Hemoglobin A1c 7%. Data and imaging reviewed: -Morning labs reviewed:. CBC showing mild normocytic anemia with hemoglobin stable at 10.4. WBC count remains normal at 6.51. BMP unremarkable. Blood glucose 149. Magnesium 1.9. -Vital signs reviewed. Blood pressure 119/84, heart rate 66, respiratory rate 19, temp 97.7 F, and SpO2 of 97% on 4 L. CODE STATUS: Full code DVT prophylaxis: Jacque Anticipated discharge date: Clinical course to determine Anticipated discharge place: Home with home care Patient was seen independently by Nurse Practitioner. This document was prepared using [employer] dictation software. 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 Objective - Vital Signs Vital signs: Vital Signs Temp 97.7 F 07/25/23 07:18 Pulse 66 07/25/23 07:18 Resp 19 07/25/23 07:18 BP 119/84 07/25/23 07:18 Pulse Ox 97 07/25/23 07:18 FiO2 35 07/23/23 03:42 Intake & Output 07/24/23 07/25/23 07/25/23 18:59 06:59 18:59 Weight 127.006 kg Other: Voiding Method Toilet Toilet Toilet # Voids 4 - Labs CBC & Chem 7: 07/25/23 06:01 07/25/23 06:01 Labs: Abnormal Lab Results - Last 24 Hours (Table) 07/24/23 07/24/23 07/24/23 Range/Units 06:23 10:46 10:46 Hgb (11.4-16.0) gm/dL MCHC (31.0-37.0) g/dL RDW (11.5-15.5) % ESR (0-30) mm/Hr Carbon Dioxide (22-30) mmol/L BUN (7-17) mg/dL Creatinine 0.45 L (0.52-1.04) mg/dL Glucose (74-99) mg/dL POC Glucose (mg/dL) (70-110) mg/dL Hemoglobin A1c 7.0 H (<=6.0) % C-Reactive Protein (<1.0) mg/dL Vancomycin Trough 36.6 H* ug/mL 07/24/23 07/24/23 07/24/23 Range/Units 10:46 10:46 11:51 Hgb 11.1 L (11.4-16.0) gm/dL MCHC 29.7 L (31.0-37.0) g/dL RDW 16.3 H (11.5-15.5) % ESR 91 H (0-30) mm/Hr Carbon Dioxide 32 H (22-30) mmol/L BUN 19 H (7-17) mg/dL Creatinine 0.47 L (0.52-1.04) mg/dL Glucose 149 H (74-99) mg/dL POC Glucose (mg/dL) 218 H (70-110) mg/dL Hemoglobin A1c (<=6.0) % C-Reactive Protein 4.6 H (<1.0) mg/dL Vancomycin Trough ug/mL 07/24/23 07/24/23 07/25/23 Range/Units 16:46 20:17 05:59 Hgb (11.4-16.0) gm/dL MCHC (31.0-37.0) g/dL RDW (11.5-15.5) % ESR (0-30) mm/Hr Carbon Dioxide (22-30) mmol/L BUN (7-17) mg/dL Creatinine (0.52-1.04) mg/dL Glucose (74-99) mg/dL POC Glucose (mg/dL) 211 H 173 H 160 H (70-110) mg/dL Hemoglobin A1c (<=6.0) % C-Reactive Protein (<1.0) mg/dL Vancomycin Trough ug/mL Microbiology - Last 24 Hours (Table) 07/23/23 03:47 Blood Culture - Preliminary Blood 07/23/23 03:32 Blood Culture - Preliminary Blood
[2023-07-25 16:34] LABS: Glucose,Whole Blood 161 mg/dL (70-110)
[2023-07-25] MEDS: FUROSEMIDE 10 MG/ML 4 ML VIAL IV SCH (16:58)
--- NOTE | 2023-07-25 18:50 | P.PN ---
Subjective Progress Note Date: 07/25/23 This is a 57-year-old female patient was hospitalized for worsening shortness of breath. She is morbidly obese with a body mass index of 49.6. She is known to have COPD in addition to obstructive sleep apnea and the patient underwent a recent sleep evaluation during which the patient was found to have severe symptomatic obstructive sleep apnea with an AHI of 41.8 and the patient was given CPAP therapy pressure of 11 cm of water. She has advanced COPD with chronic hypoxic and hypercapnic respiratory failure, chronic A-fib, hypertension hyperlipidemia in addition to coronary artery disease with previous coronary stenting and chronic anxiety and depression. Her last hospitalization was few weeks back and the patient was in the hospital for right lower extremity cellulitis and the patient was seen by the hospitalist group and she was discharged home on Keflex 500 mg p.o. 4 times a day. The patient has chronic hypoxic respiratory failure maintained on oxygen 3 L at all times. She has chronic diastolic heart failure in addition. Another issue was a fall as the patient tripped and she had sustained a trauma to her face and head with multiple facial bone fractures seen at [facility] and discharged without any further interventions. The The patient is coming in with exertional dyspnea and hypoxemia and the patient has developed drop in pulse ox while being on 3 days of oxygen by nasal cannula. She is currently on 4 L. She had increased lower extremity edema. Chest x-ray showing cardiomegaly with pulm vessel congestion. BUN is at 16 with a creatinine 0.4. White cell count of 5.1 with a hemoglobin of 10.7. proBNP level is 2660 and troponins are negative. No angina. No altered mentation. On today's evaluation of 07/24/2023, the patient continues to have edema lower extremities bilaterally. She is responding to diuretics and the patient is currently on 40 mg IV Lasix every 12 hours. As far as her COPD exacerbation, the patient is on DuoNeb updrafts [id number] and patient is also on IV Solu-Medrol 60 mg every 6 hours. No nausea. No vomiting. No emesis. No chest pain. No altered mentation. Pulse ox is currently at 95% on 4 L of oxygen by n naty cannula. The white cell count is at 6.6 with a hemoglobin 11.1 and a platelet count of 414. BUN is at 19 with a creatinine of 0.4. Vancomycin trough was 36. Sodium is at 140 with a potassium level of 4.3 and the BUN is at 19 with a creatinine of 0.4. On today's evaluation of 07/25/2023, the patient is doing well. She continues to use the BiPAP on and off during the day. She is quite compliant to the BiPAP therapy. The patient is also on bronchodilators. Steroids. The patient is sle eping Lasix 40 mg IV every 12 hours. The fluid balance has been Negative and the patient is also reporting improvement in lower extremity edema. The BUN today is at 22 with a creatinine of 0.6 and his sodium is at 141. WBC count is 6.5 with a hemoglobin of 10.4. The patient while off BiPAP, he is tolerating oxygen at 4 L/min nasal cannula and this can be further weaned off. No fever. She remains on IV cefazolin. Blood cultures have been negative. Objective - Vital Signs Vital signs: Vital Signs Temp 97.7 F 07/25/23 07:18 Pulse 100 07/25/23 09:49 Resp 19 07/25/23 07:18 BP 119/84 07/25/23 07:18 Pulse Ox 97 07/25/23 07:18 FiO2 35 07/23/23 03:42 Intake & Output 07/24/23 07/25/23 07/25/23 18:59 06:59 18:59 Weight 127.006 kg Other: Voiding Method Toilet Toilet Toilet # Voids 4 - Exam No acute distress, oriented x 3. Currently on 4 L of oxygen. Her cough is wet and congested sounding. No use of accessory muscles, or conversational dyspnea. There is evidence of subcutaneous ecchymotic changes over the forehead and the face related to recent fall and trauma to her head. She has also a area of laceration that has been staged. Head exam was generally normal. There was no scleral icterus or corneal arcus. Mucous membranes were moist. HEENT examination is grossly unremarkable. Mucous membranes are moist. No oral lesions. Neck supple. Full range of motion. No adenopathy thyromegaly or neck vein distention. Cardiovascular examination reveals regular rhythm rate. S1-S2 normal. No S3 or S4. No discernible murmur noted. H Heart sounds are distant. Lungs reveal inspiratory and expiratory wheezes and rhonchi. No crackles. Breath sounds equal bilaterally. Abdomen soft bowel sounds are heard. No masses or tenderness. Extremities are intact. No cyanosis clubbing there is increased edema lower extremities bilaterally and the patient has +1 pitting edema and there is no active cellulitis in the right lower extremity chavez wound has essentially healed. Skin is without rash or lesion. Neurologic examination is brief but nonfocal. - Labs CBC & Chem 7: 07/25/23 06:01 07/25/23 06:01 Labs: Abnormal Lab Results - Last 24 Hours (Table) 07/24/23 07/24/23 07/24/23 Range/Units 06:23 10:46 10:46 RBC (4.10-5.20) X 10*6/uL Hgb (11.4-16.0) gm/dL Hct (37.2-46.3) % MCHC (31.0-37.0) g/dL RDW (11.5-15.5) % NRBC/100 WBC Diff (0.00-0.01) X 10*3/uL ESR (0-30) mm/Hr Carbon Dioxide (22-30) mmol/L BUN (7-17) mg/dL Creatinine 0.45 L (0.52-1.04) mg/dL BUN/Creatinine Ratio (12.00-20.00) Ratio Glucose (74-99) mg/dL POC Glucose (mg/dL) (70-110) mg/dL Hemoglobin A1c 7.0 H (<=6.0) % Total Bilirubin (0.3-1.2) mg/dL AST (13-35) U/L C-Reactive Protein (<1.0) mg/dL Albumin (3.8-4.9) g/dL Albumin/Globulin Ratio (1.60-3.17) Ratio Vancomycin Trough 36.6 H* ug/mL 07/24/23 07/24/23 07/24/23 Range/Units 10:46 10:46 11:51 RBC (4.10-5.20) X 10*6/uL Hgb 11.1 L (11.4-16.0) gm/dL Hct (37.2-46.3) % MCHC 29.7 L (31.0-37.0) g/dL RDW 16.3 H (11.5-15.5) % NRBC/100 WBC Diff (0.00-0.01) X 10*3/uL ESR 91 H (0-30) mm/Hr Carbon Dioxide 32 H (22-30) mmol/L BUN 19 H (7-17) mg/dL Creatinine 0.47 L (0.52-1.04) mg/dL BUN/Creatinine Ratio (12.00-20.00) Ratio Glucose 149 H (74-99) mg/dL POC Glucose (mg/dL) 218 H (70-110) mg/dL Hemoglobin A1c (<=6.0) % Total Bilirubin (0.3-1.2) mg/dL AST (13-35) U/L C-Reactive Protein 4.6 H (<1.0) mg/dL Albumin (3.8-4.9) g/dL Albumin/Globulin Ratio (1.60-3.17) Ratio Vancomycin Trough ug/mL 07/24/23 07/24/23 07/25/23 Range/Units 16:46 20:17 05:59 RBC (4.10-5.20) X 10*6/uL Hgb (11.4-16.0) gm/dL Hct (37.2-46.3) % MCHC (31.0-37.0) g/dL RDW (11.5-15.5) % NRBC/100 WBC Diff (0.00-0.01) X 10*3/uL ESR (0-30) mm/Hr Carbon Dioxide (22-30) mmol/L BUN (7-17) mg/dL Creatinine (0.52-1.04) mg/dL BUN/Creatinine Ratio (12.00-20.00) Ratio Glucose (74-99) mg/dL POC Glucose (mg/dL) 211 H 173 H 160 H (70-110) mg/dL Hemoglobin A1c (<=6.0) % Total Bilirubin (0.3-1.2) mg/dL AST (13-35) U/L C-Reactive Protein (<1.0) mg/dL Albumin (3.8-4.9) g/dL Albumin/Globulin Ratio (1.60-3.17) Ratio Vancomycin Trough ug/mL 07/25/23 07/25/23 Range/Units 06:01 06:01 RBC 3.75 L (4.10-5.20) X 10*6/uL Hgb 10.4 L (11.4-16.0) gm/dL Hct 34.3 L (37.2-46.3) % MCHC 30.3 L (31.0-37.0) g/dL RDW 16.8 H (11.5-15.5) % NRBC/100 WBC Diff 0.03 H (0.00-0.01) X 10*3/uL ESR (0-30) mm/Hr Carbon Dioxide (22-30) mmol/L BUN (7-17) mg/dL Creatinine (0.52-1.04) mg/dL BUN/Creatinine Ratio 37.00 H (12.00-20.00) Ratio Glucose 149 H (74-99) mg/dL POC Glucose (mg/dL) (70-110) mg/dL Hemoglobin A1c (<=6.0) % Total Bilirubin <0.2 L (0.3-1.2) mg/dL AST 12 L (13-35) U/L C-Reactive Protein (<1.0) mg/dL Albumin 3.5 L (3.8-4.9) g/dL Albumin/Globulin Ratio 1.30 L (1.60-3.17) Ratio Vancomycin Trough ug/mL Microbiology - Last 24 Hours (Table) 07/23/23 03:47 Blood Culture - Preliminary Blood 07/23/23 03:32 Blood Culture - Preliminary Blood Assessment and Plan Plan: Acute hypoxemic respiratory failure secondary to COPD exacerbation, and fluid overload. Responding to a combination of bronchodilators, steroids and diure tics. Currently on 4 L of oxygen by nasal cannula. On and off utilizing a BiPAP at the bedside. Acute on chronic dyspnea likely secondary to fluid overload and a component of COPD/asthma exacerbation. Chronic hypoxic/hypercapnic respiratory failure, please refer to previous blood gas done on this patient. Severe obstructive sleep apnea with an AHI of 41 and the patient has been titrated to a CPAP pressure of 11 cm of water Recent fall and head trauma with fracture of facial bones with areas of skin bruising. No open wounds at this point in time. I suspect that her baseline pCO2 is in the 50s. Childhood asthma and the patient reports that she was intubated in the past on multiple occasions as a child in [facility]. Body mass index of above 50 Prior history of significant tobacco use. Multiple hospitalizations most recent of which was attributed to the right lower extremity cellulitis, treated with Keflex MRSA in the sputum cultures on 07/03/2023 History of atrial fibrillation. Rate is controlled and the patient is on long- term anticoagulation with Eliquis. The rate is controlled at this point in time History of hyperlipidemia. History of hypertension. History of coronary artery disease, with previous PCI/stent placement. History of myocardial infarction. Chronic anxiety/depression. Chronic cellulitis of the lower extremities, currently on IV cefazolin, ID is on the case. Plan Patient continues to improve. Will continue same treatment for now. Electrolytes and renal function are stable Continue home bedside BiPAP Will asked the patient to utilize her own CPAP machine from home. If not, we will going to provide her a CPAP machine the pressure of 11 cm of water DuoNeb nebulizer treatments 4 times a day [id number] IV Lasix 40 mg every 12 hours, producing adequate amount of urine output although she continues to have signs of fluid overload IV Solu-Medrol to be continued for now Monitor electrolytes Antibiotics per medical group Resume home medications No signs of any CO2 narcosis Previous echocardiogram showed a preserved LV function with an ejection fraction of 50 to 55% Continue IV cefazolin for the possibility of chronic cellulitis of lower extremities Will continue to follow
[2023-07-25 20:21] LABS: Glucose,Whole Blood 176 mg/dL (70-110)
[2023-07-26 05:51] LABS: African American GFR (CKD) >90 (>60 ml/min/1.73 sqM); Non-African American GFR(CKD) >90 (>60 ml/min/1.73 sqM)
[2023-07-26 06:05] LABS: Glucose,Whole Blood 164 mg/dL (70-110)
[2023-07-26] MEDS: FUROSEMIDE 10 MG/ML 10 ML VIAL IV SCH (08:41)
[2023-07-26] MEDS: FUROSEMIDE 10 MG/ML 2 ML VIAL IV STA (08:41)
--- NOTE | 2023-07-26 09:08 | P.PN ---
Subjective HISTORY OF PRESENT ILLNESS: This is a 57-year-old female with a past medical history significant for COPD, atrial fibrillation, coronary artery disease, hypertension, hyperlipidemia, and morbid obesity. Patient follows in the office with Dr. Owens. We have been asked to see the patient in consultation for congestive heart failure. Patient exam ined at the bedside. Patient presented to the hospital with a chief complaint of shortness of breath and lower extremity edema. The patient states that she was previously on Norvasc which was discontinued secondary to lower extremity edema. She states that she was switched to Cardizem and is concerned that the Cardizem may be contributing to lower extremity edema. The patient was found to be in congestive heart failure and was started on IV Lasix. She is currently receiving IV Lasix 40 mg every 12 hours. She is also being treated for a COPD exacerbation with IV steroids. Patient is also receiving IV antibiotics for right lower extremity cellulitis. Vital signs are stable. DIAGNOSTICS: - EKG reveals atrial fibrillation with controlled ventricular rate. - Chest xray cardiomegaly and mild pulmonary vascular congestion.. - Laboratory data: WBC 6.6. Hemoglobin 11.1. Platelet count 414. Sodium 140. Potassium 4.3. BUN 19. Creatinine 0.47. proBNP 2660. - Current home cardiac medications include lisinopril 5 mg daily, metoprolol tartrate 75 mg twice a day, Lasix 40 mg twice a day, Cardizem 60 mg 3 times a day, Lipitor 40 mg at night, Eliquis 5 mg twice a day. - Most recent echocardiogram obtained in May 2023 revealed ejection fraction 50 to 55%, trace MR - Cardiac catheterization history: 2021 per patient, however records are unavailable at this time 07/25/2023 Patient examined this morning. She is sitting up in the chair. Patient denies chest pain or pressure. She reports mild shortness of breath. She remains on IV Lasix. Patient did refuse her evening dose of Lasix last night because she did not want to be up urinating. Vital signs are stable. Telemetry reveals atrial fibrillation with heart rate around 100. Blood pressure 119/84. 07/26/2023 Patient examined this morning. She is sitting up on the side of the bed. Patient denies chest pain or pressure. She continues to report mild shortness of breath that is worse with exertion. She remains on IV Lasix 40 mg twice a day. She reports having good urine output. Intake and output is not accurate as no urine output has been documented. Patient's weights have also not been documented for the past 2 days. PHYSICAL EXAM: VITAL SIGNS: Reviewed. GENERAL: Well-developed in no acute distress. HEENT: Head is normocephalic. Pupils are equal, round. Sclerae anicteric. Mucous membranes of the mouth are moist. Neck supple. No JVD or thyromegaly LUNGS: Respirations even and unlabored. Lungs diminished with mild expiratory wheezing HEART: Irregular rate and rhythm. S1 and S2 heard. ABDOMEN: Soft. Nondistended. Nontender. EXTREMITIES: Normal range of motion. No clubbing or cyanosis. Peripheral pulses intact. 2+ bilateral lower extremity edema with evidence of mild cellulitis to right lower extremity. Haresh wraps noted. NEUROLOGIC: Awake and alert. Oriented x 3. ASSESSMENT: Shortness of breath Acute heart failure with preserved LV function, EF 50 to 55% Acute COPD exacerbation Acute on chronic hypoxic respiratory failure requiring supplemental oxygen Right lower extremity cellulitis Persistent atrial fibrillation Coronary artery disease with previous PCI, details unknown Hypertension Hyperlipidemia Former nicotine dependence Morbid obesity PLAN: No need to repeat echocardiogram as this was performed in May 2023 Continue current cardiac medications Continue to hold Cardizem Continue current dose of metoprolol 100 mg twice a day Continue IV Lasix. Increase dose to 60 mg twice a day Daily weights, accurate I&O, and monitoring of kidney function Further recommendations pending patient course Nurse practitioner note has been reviewed by physician. Signing provider agrees with the documented findings, assessment, and plan of care documented by STUDIO CAMERA OPERATOR as a scribe. Objective - Vital Signs Vital signs: Vital Signs Temp 98 F 07/26/23 07:30 Pulse 94 07/26/23 07:30 Resp 16 07/26/23 07:30 BP 131/94 07/26/23 07:30 Pulse Ox 97 07/26/23 07:30 FiO2 35 07/23/23 03:42 Intake & Output 07/25/23 07/26/23 07/26/23 18:59 06:59 18:59 Intake Total 118 Balance 118 Intake: Oral 118 Other: Voiding Method Toilet Toilet # Voids 3 2 - Labs CBC & Chem 7: 07/25/23 06:01 07/26/23 05:11 Labs: Abnormal Lab Results - Last 24 Hours (Table) 07/25/23 07/25/23 07/25/23 Range/Units 06:01 06:01 11:37 RBC 3.75 L (4.10-5.20) X 10*6/uL Hgb 10.4 L (12.0-15.0) g/dL Hct 34.3 L (37.2-46.3) % MCHC 30.3 L (32.0-37.0) g/dL RDW 16.8 H (11.5-14.5) % NRBC/100 WBC Diff 0.03 H (0.00-0.01) X 10*3/uL BUN/Creatinine Ratio 37.00 H (12.00-20.00) Ratio Glucose 149 H (70-110) mg/dL POC Glucose (mg/dL) 196 H (70-110) mg/dL Total Bilirubin <0.2 L (0.3-1.2) mg/dL AST 12 L (13-35) U/L Albumin 3.5 L (3.8-4.9) g/dL Albumin/Globulin Ratio 1.30 L (1.60-3.17) Ratio 07/25/23 07/25/23 07/26/23 Range/Units 16:32 20:19 06:03 RBC (4.10-5.20) X 10*6/uL Hgb (12.0-15.0) g/dL Hct (37.2-46.3) % MCHC (32.0-37.0) g/dL RDW (11.5-14.5) % NRBC/100 WBC Diff (0.00-0.01) X 10*3/uL BUN/Creatinine Ratio (12.00-20.00) Ratio Glucose (70-110) mg/dL POC Glucose (mg/dL) 161 H 176 H 164 H (70-110) mg/dL Total Bilirubin (0.3-1.2) mg/dL AST (13-35) U/L Albumin (3.8-4.9) g/dL Albumin/Globulin Ratio (1.60-3.17) Ratio Microbiology - Last 24 Hours (Table) 07/23/23 03:47 Blood Culture - Preliminary Blood 07/23/23 03:32 Blood Culture - Preliminary Blood
[2023-07-26 11:26] LABS: Glucose,Whole Blood 157 mg/dL (70-110)
--- NOTE | 2023-07-26 12:33 | P.PN ---
Subjective Progress Note Date: 07/26/23 Principal diagnosis: Reason for follow-up is bilateral lower extremity cellulitis Patient is a 57-year-old female with a past medical history significant for hypertension hyperlipidemia COPD atrial fibrillation asthma presented to the hospital with increasing shortness of breath also noticed to have lower extremity swelling and redness concerning for cellulitis. On today's evaluation that is 07/26/2023, Patient is afebrile patient is currently on 3 L nasal cannula oxygen and denies worsening shortness of breath, the patient denies any chest pain or cough, the patient denies any nausea vomiting did not have any abdominal pain and no diarrhea, no discomfort to the lower extremity patient creatinine 0.54 blood culture negative Objective - Vital Signs Vital signs: Vital Signs Temp 98 F 07/26/23 07:30 Pulse 100 07/26/23 10:16 Resp 16 07/26/23 07:30 BP 131/94 07/26/23 07:30 Pulse Ox 96 07/26/23 10:17 FiO2 35 07/23/23 03:42 Intake & Output 07/25/23 07/26/23 07/26/23 18:59 06:59 18:59 Intake Total 118 Output Total 900 Balance -782 Intake: Oral 118 Output: Urine 900 Other: Voiding Method Toilet Toilet # Voids 3 2 - Exam GENERAL DESCRIPTION: Middle-aged female lying in bed in no distress RESPIRATORY SYSTEM: Unlabored breathing , decreased breath sounds at bases HEART: S1 S2 regular rate and rhythm , ABDOMEN: Soft , no tenderness EXTREMITIES: bilateral lower extremity swelling redness slightly decreased - Labs CBC & Chem 7: 07/25/23 06:01 07/26/23 05:11 Labs: Abnormal Lab Results - Last 24 Hours (Table) 07/25/23 07/25/23 07/26/23 Range/Units 16:32 20:19 06:03 POC Glucose (mg/dL) 161 H 176 H 164 H (70-110) mg/dL 07/26/23 Range/Units 11:25 POC Glucose (mg/dL) 157 H (70-110) mg/dL Microbiology - Last 24 Hours (Table) 07/23/23 03:47 Blood Culture - Preliminary Blood 07/23/23 03:32 Blood Culture - Preliminary Blood Assessment and Plan (1) Bilateral lower leg cellulitis Current Visit: No Status: Acute Code(s): L03.116 - CELLULITIS OF LEFT LOWER LIMB; L03.115 - CELLULITIS OF RIGHT LOWER LIMB SNOMED Code(s): 463609557 Plan: 1patient presented to hospital with increasing shortness of breath which is more likely related to Cardiac etiology in this patient with evidence of fluid overload with evidence of diffuse and bilateral lower extremity and a component of cellulitis more likely streptococcal disease clinically doubt MRSA or gram- negative infection patient not running any fever white count is normal 2-patient to continue with cefazolin 3 g every 8 hours while inpatient and plan to finish therapy with oral Keflex Dictation was produced using [employer] dictation software. please excuse any grammatical, word or spelling errors. Time with Patient: Less than 30
--- NOTE | 2023-07-26 14:12 | P.PN ---
Subjective Progress Note Date: 07/26/23 57-year-old female with a past medical history of CAD with stenting, chronic diastolic heart failure, hypertension, hyperlipidemia, chronic atrial fibrillation on anticoagulation with Eliquis, type II chs-ehbndsh-bnofothzx diabetes mellitus, severe obstructive sleep apnea CPAP dependent, and chronic hypoxic respiratory failure secondary to advanced COPD home oxygen dependent 3 L. She presented to the emergency department on 07/22/2025 with a chief complaint of shortness of breath. Patient was recently discharged from the hospital 5 days prior after being treated for right lower extremity cellulitis and CHF exacerbation. Patient reports status post discharge she had progressively worsening shortness of breath along with low oxygen levels reported to drop down into the 80s despite her supplemental oxygen. She underwent full evaluation in the emergency department. Vital signs upon arrival show blood pressure 113/74, heart rate 103, respiratory rate 22, temp 98.5 F, and SpO2 of 93% on 4 L O2. EKG completed upon arrival showing atrial fibrillation with a controlled ventricular rate of 89 bpm. Chest x-ray completed showing cardiomegaly and mild pulmonary vascular congestion. Patient was admitted under our services with consultation to cardiology and pulmonology. Cardiology consulted, started on diuresis with Lasix IV. Pulmonary consulted, recommended CPAP, bronchodilators and SoluMedrol. ID consulted for bilateral lower extremity cellulitis, initially started on Vanomycin, switched to Cefzolin 3g IV TID. Blood cultures negative so far. Patient was seen and examined. Reports improvement in her breathing and lower extremity swelling. Discussed with Dr. Batista, continue CPAP which was brought in from home along with bronchodilators and SoluMedrol. Renal function within normal limits. Vital signs reviewed and stable. General: Nontoxic, no distress and appears stated age. Derm: Skin warm and dry, normal coloration for ethnicity. Head: Bruising and repaired laceration to right lateral forehead with [address] Eyes: Mild Periorbital echymosis surrounding right eye, bruising to right side of face. Cardiovascular irregularly irregular with normal S1S2, no murmur Lungs: Respirations even, regular, and unlabored on supplemental oxygen. Lungs diminished and no accessory muscle usage. Ext: ROM intact. No gross muscle atrophy, 2+ BLE pitting edema, no contractures. Bilateral lower extremities with mild erythema worse on right, no open wounds or drainage. Neuro: Speech clear, face symmetrical with no noted focal neuro deficits Psych: Alert and oriented to person, place, time, and situation. Appropriate and pleasant affect. Based on my assessment of this patient, this patient meets a high complexity level of care. Patient has an acute diagnosis of AHRF due to CHF and COPD exacerbation complicated by cellulitis that poses a threat to life or bodily function. Acute on chronic hypoxic respiratory failure: Supplemental O2 to maintain O2 saturation > 92%. Acute on chronic diastolic heart failure exacerbation: Lasix 40 mg IV BID. Stric t intake and outtake. Daily weights. Cardiology on board. COPD with acute exacerbation: Baseline 3 L at all times. DuoNebs QID and PRN for shortness of breath and/or wheezing, Flonase 2 sprays each nostril QD, and Singulair 10 mg PO QHS. Solu-Medrol 60 mg IVP Q8H. Pulmonary on board. Cellulitis: ID following discontinuing vancomycin and starting patient on Kefzol 3 g IV TID. Severe obstructive sleep apnea: CPAP nightly and while napping. Chronic atrial fibrillation on anticoagulation with Eliquis CAD with previous stent Hypertension Hyperlipidemia Type II lhr-[id number] diabetes mellitus: Glycemic protocol with NovoLog sliding scale. Hemoglobin A1c 7%. CODE STATUS: FULL CODE DVT Prophylaxis: Eliquis GI Prophylaxis: Protonix Designated medical POA if patient is not able to make medical decisions for themselves: I have reviewed the following telecommunications consultant notes: Pulmonary, Cardiology. I have reviewed the results of the following tests: Renal function. I have ordered the following tests: I have discussed the care of this patient with the following independent historian: I have independently interpreted the following test below: I have discussed the management of this patient with the following physician: Objective - Vital Signs Vital signs: Vital Signs Temp 98 F 07/26/23 07:30 Pulse 100 07/26/23 13:02 Resp 16 07/26/23 07:30 BP 131/94 07/26/23 07:30 Pulse Ox 96 07/26/23 10:17 FiO2 35 07/23/23 03:42 Intake & Output 07/25/23 07/26/23 07/26/23 18:59 06:59 18:59 Intake Total 358 Output Total 900 Balance -542 Intake: Oral 358 Output: Urine 900 Other: Voiding Method Toilet Toilet # Voids 3 2 - Labs CBC & Chem 7: 07/25/23 06:01 07/26/23 05:11 Labs: Abnormal Lab Results - Last 24 Hours (Table) 07/25/23 07/25/23 07/26/23 Range/Units 16:32 20:19 06:03 POC Glucose (mg/dL) 161 H 176 H 164 H (70-110) mg/dL 07/26/23 Range/Units 11:25 POC Glucose (mg/dL) 157 H (70-110) mg/dL Microbiology - Last 24 Hours (Table) 07/23/23 03:47 Blood Culture - Preliminary Blood 07/23/23 03:32 Blood Culture - Preliminary Blood
--- NOTE | 2023-07-26 16:13 | XR ---
EXAMINATION TYPE: XR chest 2V DATE OF EXAM: 07/26/2023 COMPARISON: 07/22/2023 HISTORY: 57-year-old female CHF TECHNIQUE: PA and lateral views FINDINGS: Heart is mildly enlarged. Mild interstitial prominence persists. Patchy mid and lower lung opacities persist. Resolution of previous pleural effusion. IMPRESSION: 1. Suspect some interval improvement with residual CHF and mild pulmonary vascular congestion. 2. Prominent patchy lower lung opacities remain, probably relating to areas of atelectasis versus res idual patchy edema. 3. Resolution of previous small effusions.
--- NOTE | 2023-07-26 16:21 | P.PN ---
Subjective Progress Note Date: 07/26/23 This is a 57-year-old female patient was hospitalized for worsening shortness of breath. She is morbidly obese with a body mass index of 49.6. She is known to have COPD in addition to obstructive sleep apnea and the patient underwent a recent sleep evaluation during which the patient was found to have severe symptomatic obstructive sleep apnea with an AHI of 41.8 and the patient was given CPAP therapy pressure of 11 cm of water. She has advanced COPD with chronic hypoxic and hypercapnic respiratory failure, chronic A-fib, hypertension hyperlipidemia in addition to coronary artery disease with previous coronary stenting and chronic anxiety and depression. Her last hospitalization was few weeks back and the patient was in the hospital for right lower extremity cellulitis and the patient was seen by the hospitalist group and she was discharged home on Keflex 500 mg p.o. 4 times a day. The patient has chronic hypoxic respiratory failure maintained on oxygen 3 L at all times. She has chronic diastolic heart failure in addition. Another issue was a fall as the patient tripped and she had sustained a trauma to her face and head with multiple facial bone fractures seen at [facility] and discharged without any further interventions. The The patient is coming in with exertional dyspnea and hypoxemia and the patient has developed drop in pulse ox while being on 3 days of oxygen by nasal cannula. She is currently on 4 L. She had increased lower extremity edema. Chest x-ray showing cardiomegaly with pulm vessel congestion. BUN is at 16 with a creatinine 0.4. White cell count of 5.1 with a hemoglobin of 10.7. proBNP level is 2660 and troponins are negative. No angina. No altered mentation. On today's evaluation of 07/24/2023, the patient continues to have edema lower extremities bilaterally. She is responding to diuretics and the patient is currently on 40 mg IV Lasix every 12 hours. As far as her COPD exacerbation, the patient is on DuoNeb updrafts [id number]-gre-sreyi and patient is also on IV Solu-Medrol 60 mg every 6 hours. No nausea. No vomiting. No emesis. No chest pain. No altered mentation. Pulse ox is currently at 95% on 4 L of oxygen by n naty cannula. The white cell count is at 6.6 with a hemoglobin 11.1 and a platelet count of 414. BUN is at 19 with a creatinine of 0.4. Vancomycin trough was 36. Sodium is at 140 with a potassium level of 4.3 and the BUN is at 19 with a creatinine of 0.4. On today's evaluation of 07/25/2023, the patient is doing well. She continues to use the BiPAP on and off during the day. She is quite compliant to the BiPAP therapy. The patient is also on bronchodilators. Steroids. The patient is sle eping Lasix 40 mg IV every 12 hours. The fluid balance has been Negative and the patient is also reporting improvement in lower extremity edema. The BUN today is at 22 with a creatinine of 0.6 and his sodium is at 141. WBC count is 6.5 with a hemoglobin of 10.4. The patient while off BiPAP, he is tolerating oxygen at 4 L/min nasal cannula and this can be further weaned off. No fever. She remains on IV cefazolin. Blood cultures have been negative. On 07/26/2023, the patient is stable. She is doing well. No specific complaints. She is off the BiPAP. She is morbidly obese. She continues to be on IV Lasix 60 mg IV push twice a day. She is in a negative fluid balance and the patient is responding to the diuresis. The most recent creatinine is at 0.5 and the rest of electrolytes were done yesterday were all within normal limits. No chest pain. No nausea. No vomiting. No altered mentation. She is on 3 selection nasal cannula with a pulse ox of 97%. No other significant events overnight. She has a BiPAP at the bedside that she is utilizing overnight that she has also brought her CPAP machine from home which is set at a pressure of 11 cm of water. I checked the compliancy and it seems to be adequate for now. She remains on IV cefazolin. Objective - Vital Signs Vital signs: Vital Signs Temp 98 F 07/26/23 07:30 Pulse 100 07/26/23 10:16 Resp 16 07/26/23 07:30 BP 131/94 07/26/23 07:30 Pulse Ox 96 07/26/23 10:17 FiO2 35 07/23/23 03:42 Intake & Output 07/25/23 07/26/23 07/26/23 18:59 06:59 18:59 Intake Total 118 Balance 118 Intake: Oral 118 Other: Voiding Method Toilet Toilet # Voids 3 2 - Exam No acute distress, oriented x 3. Currently on 4 L of oxygen. Her cough is wet and congested sounding. No use of accessory muscles, or conversational dyspnea. There is evidence of subcutaneous ecchymotic changes over the forehead and the face related to recent fall and trauma to her head. She has also a area of laceration that has been staged. Head exam was generally normal. There was no scleral icterus or corneal arcus. Mucous membranes were moist. HEENT examination is grossly unremarkable. Mucous membranes are moist. No oral lesions. Neck supple. Full range of motion. No adenopathy thyromegaly or neck vein distention. Cardiovascular examination reveals regular rhythm rate. S1-S2 normal. No S3 or S4. No discernible murmur noted. H Heart sounds are distant. Lungs reveal inspiratory and expiratory wheezes and rhonchi. No crackles. Breath sounds equal bilaterally. Abdomen soft bowel sounds are heard. No masses or tenderness. Extremities are intact. No cyanosis clubbing there is increased edema lower extremities bilaterally and the patient has +1 pitting edema and there is no active cellulitis in the right lower extremity chavez wound has essentially heale d. Skin is without rash or lesion. Neurologic examination is brief but nonfocal. - Labs CBC & Chem 7: 07/25/23 06:01 07/26/23 05:11 Labs: Abnormal Lab Results - Last 24 Hours (Table) 07/25/23 07/25/23 07/25/23 Range/Units 11:37 16:32 20:19 POC Glucose (mg/dL) 196 H 161 H 176 H (70-110) mg/dL 07/26/23 Range/Units 06:03 POC Glucose (mg/dL) 164 H (70-110) mg/dL Microbiology - Last 24 Hours (Table) 07/23/23 03:47 Blood Culture - Preliminary Blood 07/23/23 03:32 Blood Culture - Preliminary Blood Assessment and Plan Plan: Acute hypoxemic respiratory failure secondary to COPD exacerbation, and fluid overload. Responding to a combination of bronchodilators, steroids and diuretics. Currently on 3 L of oxygen by nasal cannula and the patient was able to bring in his own CPAP machine from home set at a pressure of 11 cm of water. Continues to have signs of fluid overload and the patient is currently on IV Lasix.. Acute on chronic dyspnea likely secondary to fluid overload and a component of COPD/asthma exacerbation. Chronic hypoxic/hypercapnic respiratory failure, please refer to previous blood gas done on this patient. Severe obstructive sleep apnea with an AHI of 41 and the patient has been ti trated to a CPAP pressure of 11 cm of water Recent fall and head trauma with fracture of facial bones with areas of skin bruising. No open wounds at this point in time. I suspect that her baseline pCO2 is in the 50s. Childhood asthma and the patient reports that she was intubated in the past on multiple occasions as a child in [facility]. Body mass index of above 50 Prior history of significant tobacco use. Multiple hospitalizations most recent of which was attributed to the right lower extremity cellulitis, treated with Keflex MRSA in the sputum cultures on 07/03/2023 History of atrial fibrillation. Rate is controlled and the patient is on long- term anticoagulation with Eliquis. The rate is controlled at this point in time History of hyperlipidemia. History of hypertension. History of coronary artery disease, with previous PCI/stent placement. History of myocardial infarction. Chronic anxiety/depression. Chronic cellulitis of the lower extremities, currently on IV cefazolin, ID is on the case. Plan Will asked the patient to utilize her own CPAP machine from home. I checked the compliancy from her machine and the numbers are adequate DuoNeb nebulizer treatments 4 times a day [id number] IV Lasix 60 mg IV every 12 hours and the patient has been negative fluid balance IV Solu-Medrol to be continued for now, to be transition to prednisone burst taper as of tomorrow Monitor electrolytes IV cefazolin No signs of any CO2 narcosis Previous echocardiogram showed a preserved LV function with an ejection fraction of 50 to 55% Continue IV cefazolin for the possibility of chronic cellulitis of lower extremities Will continue to follow
[2023-07-26 16:51] LABS: Glucose,Whole Blood 219 mg/dL (70-110)
[2023-07-26 20:30] LABS: Glucose,Whole Blood 265 mg/dL (70-110)
[2023-07-27 05:48] LABS: Glucose,Whole Blood 148 mg/dL (70-110)
[2023-07-27 08:15] LABS: African American GFR (CKD) >90 (>60 ml/min/1.73 sqM); Anion Gap 4 mmol/L; Blood Urea Nitrogen 32 mg/dL (7-17); Calcium 8.7 mg/dL (8.4-10.2); Carbon Dioxide 39 mmol/L (22-30); Chloride 95 mmol/L (98-107); Glucose 157 mg/dL (74-99); Magnesium 1.8 mg/dL (1.6-2.3); Non-African American GFR(CKD) >90 (>60 ml/min/1.73 sqM); Potassium 4.4 mmol/L (3.5-5.1); Sodium 138 mmol/L (137-145)
[2023-07-27 08:54] VITALS: TEMP 98.4
[2023-07-27] MEDS: predniSONE 20 MG TAB PO SCH (11:46)
[2023-07-27 11:58] LABS: Glucose,Whole Blood 156 mg/dL (70-110)
--- NOTE | 2023-07-27 13:18 | P.PN ---
Subjective Progress Note Date: 07/27/23 57-year-old female with a past medical history of CAD with stenting, chronic diastolic heart failure, hypertension, hyperlipidemia, chronic atrial fibrillation on anticoagulation with Eliquis, type II aqm-uwmpyei-rgjdyhgwo diabetes mellitus, severe obstructive sleep apnea CPAP dependent, and chronic hypoxic respiratory failure secondary to advanced COPD home oxygen dependent 3 L. She presented to the emergency department on 07/22/2025 with a chief complaint of shortness of breath. Patient was recently discharged from the hospital 5 days prior after being treated for right lower extremity cellulitis and CHF exacerbation. Patient reports status post discharge she had progressively worsening shortness of breath along with low oxygen levels reported to drop down into the 80s despite her supplemental oxygen. She underwent full evaluation in the emergency department. Vital signs upon arrival show blood pressure 113/74, heart rate 103, respiratory rate 22, temp 98.5 F, and SpO2 of 93% on 4 L O2. EKG completed upon arrival showing atrial fibrillation with a controlled ventricular rate of 89 bpm. Chest x-ray completed showing cardiomegaly and mild pulmonary vascular congestion. Patient was admitted under our services with consultation to cardiology and pulmonology. Cardiology consulted, started on diuresis with Lasix IV. Pulmonary consulted, recommended CPAP, bronchodilators and SoluMedrol. ID consulted for bilateral lower extremity cellulitis, initially started on Vanomycin, switched to Cefzolin 3g IV TID. Blood cultures negative so far. Patient was seen and examined. Reports improvement in her breathing and lower extremity swelling. Discussed with Dr. Batista, continue CPAP which was brought in from home along with bronchodilators and SoluMedrol. Renal function within normal limits. 07/26 Patient was seen and examined. Continued improvement in breathing and LE swelling. Currently on Lasix 60 mg IV BID which was increased by Cardiology yesterday. BMP Cl 95, bicarb 39, BUN 32, glu 157. CXR done today shows improvement in the pulmonary vascular congestion compared to CXR on admission. Vital signs reviewed and stable. General: Nontoxic, no distress and appears stated age. Derm: Skin warm and dry, normal coloration for ethnicity. Head: Bruising and repaired laceration to right lateral forehead with [address] Eyes: Mild Periorbital echymosis surrounding right eye, bruising to right side of face. Cardiovascular irregularly irregular with normal S1S2, no murmur Lungs: Respirations even, regular, and unlabored on supplemental oxygen. Lungs diminished and no accessory muscle usage. Ext: ROM intact. No gross muscle atrophy, 2+ BLE pitting edema, no contractures. Bilateral lower extremities with mild erythema worse on right, no open wounds or drainage. Neuro: Speech clear, face symmetrical with no noted focal neuro deficits Psych: Alert and oriented to person, place, time, and situation. Appropriate and pleasant affect. Based on my assessment of this patient, this patient meets a high complexity level of care. Patient has an acute diagnosis of AHRF due to CHF and COPD exacerbation complicated by cellulitis that poses a threat to life or bodily function. Acute on chronic hypoxic respiratory failure: Supplemental O2 to maintain O2 saturation > 92%. Acute on chronic diastolic heart failure exacerbation: Lasix [address] St rict intake and outtake. Daily weights. Cardiology on board. COPD with acute exacerbation: Baseline 3 L at all times. DuoNebs QID and PRN for shortness of breath and/or wheezing, Flonase 2 sprays each nostril QD, and Singulair 10 mg PO QHS. Solu-Medrol 60 mg IVP Q8H. Pulmonary on board. Cellulitis: ID following discontinuing vancomycin and starting patient on Kefzol 3 g IV TID. Severe obstructive sleep apnea: CPAP nightly and while napping. Chronic atrial fibrillation on anticoagulation with Eliquis CAD with previous stent Hypertension Hyperlipidemia Type II fct-ifvduyd-lkhcldzzm diabetes mellitus: Glycemic protocol with NovoLog sliding scale. Hemoglobin A1c 7%. CODE STATUS: FULL CODE DVT Prophylaxis: Eliquis GI Prophylaxis: Protonix Designated medical POA if patient is not able to make medical decisions for themselves: I have reviewed the following network relations consultant notes: Cardiology, Pulmonary note. I have reviewed the results of the following tests: BMP. I have ordered the following tests: BMP. I have discussed the care of this patient with the following independent historian: I have independently interpreted the following test below: CXR I have discussed the management of this patient with the following physician: Objective - Vital Signs Vital signs: Vital Signs Temp 98.4 F 07/27/23 07:10 Pulse 106 H 07/27/23 12:43 Resp 19 07/27/23 07:10 BP 137/94 07/27/23 07:10 Pulse Ox 97 03/01/24 09:30 FiO2 35 07/23/23 03:42 Intake & Output 07/26/23 07/27/23 07/27/23 18:59 06:59 18:59 Intake Total 1372 118 Output Total 2150 600 1000 Balance -603 -574 -562 Intake: Oral 1372 118 Output: Urine 2150 600 1000 - Labs CBC & Chem 7: 07/25/23 06:01 07/27/23 07:18 Labs: Abnormal Lab Results - Last 24 Hours (Table) 07/26/23 07/26/23 07/27/23 Range/Units 16:50 20:28 05:47 Chloride (98-107) mmol/L Carbon Dioxide (22-30) mmol/L BUN (7-17) mg/dL Glucose (74-99) mg/dL POC Glucose (mg/dL) 219 H 265 H 148 H (70-110) mg/dL 07/27/23 07/27/23 Range/Units 07:18 11:56 Chloride 95 L (98-107) mmol/L Carbon Dioxide 39 H (22-30) mmol/L BUN 32 H (7-17) mg/dL Glucose 157 H (74-99) mg/dL POC Glucose (mg/dL) 156 H (70-110) mg/dL Microbiology - Last 24 Hours (Table) 07/23/23 03:47 Blood Culture - Preliminary Blood 07/23/23 03:32 Blood Culture - Preliminary Blood
--- NOTE | 2023-07-27 13:24 | P.DS ---
Providers Date of admission: 07/23/23 12:15 Expected date of discharge: 07/27/23 Attending physician: Elise Burger MD Consults: 07/23/23 18:09 Consult Physician Routine Consulting Provider: Lui Batista Consult Reason/Comments: pulm eval Do you want consulting provider notified?: Yes 07/24/23 08:42 Consult Physician Routine Consulting Provider: Chance Vargas Consult Reason/Comments: reports wors RLE erythema & pain recent hosp for cellulitis d/c on keflex Do you want consulting provider notified?: Yes 07/24/23 08:43 Consult Physician Routine Consulting Provider: Kenneth Cavazos Consult Reason/Comments: HFpEF exacerbation Do you want consulting provider notified?: Yes Primary care physician: Sugey Chester MD Hospital Course: 57-year-old female with a past medical history of CAD with stenting, chronic diastolic heart failure, hypertension, hyperlipidemia, chronic atrial fibrillation on anticoagulation with Eliquis, type II omm-ehrswpu-mqdhabxbx diabetes mellitus, severe obstructive sleep apnea CPAP dependent, and chronic hypoxic respiratory failure secondary to advanced COPD home oxygen dependent 3 L. She presented to the emergency department on 07/22/2025 with a chief complaint of shortness of breath. Patient was recently discharged from the hospital 5 days prior after being treated for right lower extremity cellulitis and CHF exacerbation. Patient reports status post discharge she had progressively worsening shortness of breath along with low oxygen levels reported to drop down into the 80s despite her supplemental oxygen. She underwent full evaluation in the emergency department. Vital signs upon arrival show blood pressure 113/74, heart rate 103, respiratory rate 22, temp 98.5 F, and SpO2 of 93% on 4 L O2. EKG completed upon arrival showing atrial fibrillation with a controlled ventricular rate of 89 bpm. Chest x-ray completed showing cardiomegaly and mild pulmonary vascular congestion. Patient was admitted under our services with consultation to cardiology and pulmonology. Cardiology consulted, started on diuresis with Lasix IV. Pulmonary consulted, recommended CPAP, bronchodilators and SoluMedrol. ID consulted for bilateral lower extremity cellulitis, initially started on Vanomycin, switched to Cefzolin 3g IV TID. Blood cultures negative so far. Patient was seen and examined. Reports improvement in her breathing and lower extremity swelling. Discussed with Dr. Artinian, continue CPAP which was brought in from home along with bronchodilators and SoluMedrol. Renal function within normal limits. 07/26 Patient was seen and examined. Continued improvement in breathing and LE swelling. Currently on Lasix 60 mg IV BID which was increased by Cardiology yesterday. BMP Cl 95, bicarb 39, BUN 32, glu 157. CXR done today shows improvement in the pulmonary vascular congestion compared to CXR on admission. Cardiology recommends discharge home on 40 mg PO BID. Cardiology cleared for discharge. Patient prescribed Metoprolol and Lasix, Keflex x 10 days, Prednisone taper. Vital signs reviewed and stable. General: Nontoxic, no distress and appears stated age. Derm: Skin warm and dry, normal coloration for ethnicity. Head: Bruising and repaired laceration to right lateral forehead with [address] Eyes: Mild Periorbital echymosis surrounding right eye, bruising to right side of face. Cardiovascular irregularly irregular with normal S1S2, no murmur Lungs: Respirations even, regular, and unlabored on supplemental oxygen. Lungs diminished and no accessory muscle usage. Ext: ROM intact. No gross muscle atrophy, 2+ BLE pitting edema, no contractures. Bilateral lower extremities with mild erythema worse on right, no open wounds or drainage. Neuro: Speech clear, face symmetrical with no noted focal neuro deficits Psych: Alert and oriented to person, place, time, and situation. Appropriate and pleasant affect. Discharge Diagnosis: Acute on chronic hypoxic respiratory failure Acute on chronic diastolic heart failure exacerbation COPD with acute exacerbation Cellulitis Severe obstructive sleep apnea Chronic atrial fibrillation on anticoagulation with Eliquis CAD with previous stent Hypertension Hyperlipidemia Type II eyy-mhiirrq-rkpsyvnjz diabetes mellitus This complex discharge took 35 minutes to complete. Patient Condition at Discharge: Stable Plan - Discharge Summary Discharge Rx Participant: No New Discharge Prescriptions: New Metoprolol Tartrate [Lopressor] 100 mg PO BID #60 tab predniSONE See Taper PO DIRECTED #30 tab Continue HYDROcodone/APAP 5-325MG [[facility] 5-325] 1 tab PO TID Cetirizine HCl 10 mg PO DAILY Apixaban [Eliquis] 5 mg PO BID Atorvastatin [Lipitor] 40 mg PO HS Dulaglutide [Trulicity] 1.5 mg SQ SA Ergocalciferol [Vitamin D2 (1250 Mcg = 00785 Iu)] 1,250 mcg PO SA lisinopriL [Zestril] 5 mg PO DAILY Omeprazole 20 mg PO DAILY Cephalexin [Keflex] 500 mg PO Q6HR 10 Days #40 cap Furosemide [Lasix] 40 mg PO BID@0900,1600 #60 tab Folic Acid 1 mg PO DAILY FLUoxetine HCL [PROzac] 40 mg PO DAILY@1200 Gabapentin [Neurontin] 300 mg PO BID Mirtazapine [Remeron] 15 mg PO HS Montelukast [Singulair] 10 mg PO DAILY Ipratropium-Albuterol Nebulize [Duoneb 0.5 mg-3 mg/3 ml Soln] 3 ml INHALATION RT-QID Fluticasone Nasal [place] [Flonase Nasal [place]] 2 spray EA NOSTRIL DAILY ml guaiFENesin [Mucinex] 1,200 mg PO Q12HR tab Discontinued Metoprolol Tartrate [Lopressor] 75 mg PO BID #180 tab Diltiazem Oral [Cardizem*] 60 mg PO TID #90 tab Discharge Medication List Apixaban [Eliquis] 5 mg PO BID 10/26/22 [History] Atorvastatin [Lipitor] 40 mg PO 10/26/22 [History] Cetirizine HCl 10 mg PO DAILY 10/26/22 [History] FLUoxetine HCL [PROzac] 40 mg PO DAILY@1200 10/26/22 [History] Folic Acid 1 mg PO DAILY 10/26/22 [History] Gabapentin [Neurontin] 300 mg PO BID 10/26/22 [History] HYDROcodone/APAP 5-325MG [[facility] 5-325] 1 tab PO TID 10/26/22 [History] Mirtazapine [Remeron] 15 mg PO HS 10/26/22 [History] Montelukast [Singulair] 10 mg PO DAILY 10/26/22 [History] Dulaglutide [Trulicity] 1.5 mg SQ SA 06/21/23 [History] Ergocalciferol [Vitamin D2 (1250 Mcg = 08028 Iu)] 1,250 mcg PO SA 06/21/23 [History] Ipratropium-Albuterol Nebulize [Duoneb 0.5 mg-3 mg/3 ml Soln] 3 ml INHALATION RT-QID 06/21/23 [History] Omeprazole 20 mg PO DAILY 06/21/23 [History] lisinopriL [Zestril] 5 mg PO DAILY 06/21/23 [History] Fluticasone Nasal [place] [Flonase Nasal [place]] 2 spray EA NOSTRIL DAILY ml 06/27/23 [Rx] guaiFENesin [Mucinex] 1,200 mg PO Q12HR tab 06/27/23 [Rx] Cephalexin [Keflex] 500 mg PO Q6HR 10 Days #40 cap 07/27/23 [Rx] Furosemide [Lasix] 40 mg PO BID@0900,1600 #60 tab 07/27/23 [Rx] Metoprolol Tartrate [Lopressor] 100 mg PO BID #60 tab 07/27/23 [Rx] predniSONE See Taper PO DIRECTED #30 tab 07/27/23 [Rx] Follow up Appointment(s)/Referral(s): [facility] [facility] [NON-STAFF] - As Needed (Call to inquire about Meals on Wheels. ) [facility] [REFERRING] - As Needed (Call to inquire about chore services. ) Bernardino Lemus DO [Doctor of Osteopathic Medicine] - 07/31/23 1:15 pm [facility], [NON-STAFF] - As Needed ([facility] will call you to schedule your in home nursing, physical therapy, and occupational therapy visits. ) Sugey Chester MD [Primary Care Provider] - 1-2 days Antonio Owens MD [STAFF PHYSICIAN] - 1 Week Activity/Diet/Wound Care/Special Instructions: Diet: Low salt. 1.5 L fluid restriction. Diabetic and Cardiac diet. Discharge Disposition: HOME SELF-CARE
--- NOTE | 2023-07-27 13:49 | PN ---
PROGRESS NOTE SUBJECTIVE: This is a 57-year-old lady with morbid obesity, atrial fibrillation, who is admitted to hospital with congestive heart failure. She has COPD and is currently on home O2. I gave her 60 mg of IV Lasix yesterday. She is doing much better. Leg edema has resolved. Shortness of breath has improved and her oxygen requirement is better. OBJECTIVE: GENERAL: On exam, comfortable at rest. NECK: There is no jugular venous distention. CHEST: Reveals good air entry bilaterally. HEART: Reveals first and second heart sounds. Systolic murmur at the apex. ABDOMEN: Soft. EXTREMITIES: Reveal mild edema bilaterally. The patient is doing well. She is stable for discharge. Followup with me in 2 weeks' time. MMODL / IJN: [id number] /
[2023-07-27 15:21] VITALS: BP 115/73; PULSE 116; RESP 20
--- NOTE | 2023-07-27 15:45 | P.PN ---
Subjective Progress Note Date: 07/27/23 Principal diagnosis: Reason for follow-up is bilateral lower extremity cellulitis Patient is a 57-year-old female with a past medical history significant for hypertension hyperlipidemia COPD atrial fibrillation asthma presented to the hospital with increasing shortness of breath also noticed to have lower extremity swelling and redness concerning for cellulitis. On today's evaluation that is 07/27/2023,the patient denies any fever or any chills, patient is breathing comfortably on room air, the patient denies chest pain shortness of breath and no significant cough, patient denies abdominal pain, no nausea vomiting or diarrhea. No extremity swelling or redness has improved. Patient did have a creatinine 0.55 no CBC was done today blood cultures so far negative Objective - Vital Signs Vital signs: Vital Signs Temp 98.4 F 07/27/23 07:10 Pulse 106 H 07/27/23 12:43 Resp 19 07/27/23 07:10 BP 137/94 07/27/23 07:10 Pulse Ox 97 07/27/23 09:30 FiO2 35 07/23/23 03:42 Intake & Output 07/26/23 07/27/23 07/27/23 18:59 06:59 18:59 Intake Total 1372 118 Output Total 2150 600 1000 Balance -726 -969 -982 Intake: Oral 1372 118 Output: Urine 2150 600 1000 - Exam GENERAL DESCRIPTION: Middle-aged female lying in bed in no distress RESPIRATORY SYSTEM: Unlabored breathing , decreased breath sounds at bases HEART: S1 S2 regular rate and rhythm , ABDOMEN: Soft , no tenderness EXTREMITIES: bilateral lower extremity swelling redness slightly decreased - Labs CBC & Chem 7: 07/25/23 06:01 07/27/23 07:18 Labs: Abnormal Lab Results - Last 24 Hours (Table) 07/26/23 07/26/23 07/27/23 Range/Units 16:50 20:28 05:47 Chloride (98-107) mmol/L Carbon Dioxide (22-30) mmol/L BUN (7-17) mg/dL Glucose (74-99) mg/dL POC Glucose (mg/dL) 219 H 265 H 148 H (70-110) mg/dL 07/27/23 07/27/23 Range/Units 07:18 11:56 Chloride 95 L (98-107) mmol/L Carbon Dioxide 39 H (22-30) mmol/L BUN 32 H (7-17) mg/dL Glucose 157 H (74-99) mg/dL POC Glucose (mg/dL) 156 H (70-110) mg/dL Microbiology - Last 24 Hours (Table) 07/23/23 03:47 Blood Culture - Preliminary Blood 07/23/23 03:32 Blood Culture - Preliminary Blood Assessment and Plan (1) Bilateral lower leg cellulitis Current Visit: No Status: Acute Code(s): L03.116 - CELLULITIS OF LEFT LOWER LIMB; L03.115 - CELLULITIS OF RIGHT LOWER LIMB SNOMED Code(s): 572822186 Plan: 1patient presented to hospital with increasing shortness of breath which is more likely related to Cardiac etiology in this patient with evidence of fluid overload with evidence of diffuse and bilateral lower extremity and a component of cellulitis more likely streptococcal disease clinically doubt MRSA or gram- negative infection patient not running any fever white count is normal 2-patient has shown improvement as far as lower extremity cellulitis is concerned and will be able to finish therapy with oral Keflex x 7 days on discha rge Dictation was produced using [employer] dictation software. please excuse any grammatical, word or spelling errors. Time with Patient: Less than 30
--- NOTE | 2023-07-27 16:12 | P.PN ---
Subjective Progress Note Date: 07/27/23 This is a 57-year-old female patient was hospitalized for worsening shortness of breath. She is morbidly obese with a body mass index of 49.6. She is known to have COPD in addition to obstructive sleep apnea and the patient underwent a recent sleep evaluation during which the patient was found to have severe symptomatic obstructive sleep apnea with an AHI of 41.8 and the patient was given CPAP therapy pressure of 11 cm of water. She has advanced COPD with chronic hypoxic and hypercapnic respiratory failure, chronic A-fib, hypertension hyperlipidemia in addition to coronary artery disease with previous coronary stenting and chronic anxiety and depression. Her last hospitalization was few weeks back and the patient was in the hospital for right lower extremity cellulitis and the patient was seen by the hospitalist group and she was discharged home on Keflex 500 mg p.o. 4 times a day. The patient has chronic hypoxic respiratory failure maintained on oxygen 3 L at all times. She has chronic diastolic heart failure in addition. Another issue was a fall as the patient tripped and she had sustained a trauma to her face and head with multiple facial bone fractures seen at [facility] and discharged without any further interventions. The The patient is coming in with exertional dyspnea and hypoxemia and the patient has developed drop in pulse ox while being on 3 days of oxygen by nasal cannula. She is currently on 4 L. She had increased lower extremity edema. Chest x-ray showing cardiomegaly with pulm vessel congestion. BUN is at 16 with a creatinine 0.4. White cell count of 5.1 with a hemoglobin of 10.7. proBNP level is 2660 and troponins are negative. No angina. No altered mentation. On today's evaluation of 07/24/2023, the patient continues to have edema lower extremities bilaterally. She is responding to diuretics and the patient is currently on 40 mg IV Lasix every 12 hours. As far as her COPD exacerbation, the patient is on DuoNeb updrafts [id number] and patient is also on IV Solu-Medrol 60 mg every 6 hours. No nausea. No vomiting. No emesis. No chest pain. No altered mentation. Pulse ox is currently at 95% on 4 L of oxygen by n naty cannula. The white cell count is at 6.6 with a hemoglobin 11.1 and a platelet count of 414. BUN is at 19 with a creatinine of 0.4. Vancomycin trough was 36. Sodium is at 140 with a potassium level of 4.3 and the BUN is at 19 with a creatinine of 0.4. On today's evaluation of 07/25/2023, the patient is doing well. She continues to use the BiPAP on and off during the day. She is quite compliant to the BiPAP therapy. The patient is also on bronchodilators. Steroids. The patient is sle eping Lasix 40 mg IV every 12 hours. The fluid balance has been Negative and the patient is also reporting improvement in lower extremity edema. The BUN today is at 22 with a creatinine of 0.6 and his sodium is at 141. WBC count is 6.5 with a hemoglobin of 10.4. The patient while off BiPAP, he is tolerating oxygen at 4 L/min nasal cannula and this can be further weaned off. No fever. She remains on IV cefazolin. Blood cultures have been negative. On 07/26/2023, the patient is stable. She is doing well. No specific complaints. She is off the BiPAP. She is morbidly obese. She continues to be on IV Lasix 60 mg IV push twice a day. She is in a negative fluid balance and the patient is responding to the diuresis. The most recent creatinine is at 0.5 and the rest of electrolytes were done yesterday were all within normal limits. No chest pain. No nausea. No vomiting. No altered mentation. She is on 3 selection nasal cannula with a pulse ox of 97%. No other significant events overnight. She has a BiPAP at the bedside that she is utilizing overnight that she has also brought her CPAP machine from home which is set at a pressure of 11 cm of water. I checked the compliancy and it seems to be adequate for now. She remains on IV cefazolin. On 07/27/2023, the patient is doing well. No specific complaints. The patient remains on IV Lasix 60 mg IV every 12 hours. Fluid balance over the past 24 hours Has been -1.3 L. Electrolytes are stable with a BUN of 32 with a cr eatinine of 0.5 and his sodium level is at 138. She remains on IV cefazolin. She remains stable in terms of respiratory status and the patient was taken off the oxygen and the patient is currently on room air oxygen. The plan is to discharge patient home on a prednisone burst taper and the patient will continue her diuretics on outpatient basis with Lasix 4 mg p.o. twice a day. Objective - Vital Signs Vital signs: Vital Signs Temp 98.4 F 07/27/23 07:10 Pulse 115 H 07/27/23 09:09 Resp 19 07/27/23 07:10 BP 137/94 07/27/23 07:10 Pulse Ox 97 07/27/23 09:30 FiO2 35 07/23/23 03:42 Intake & Output 07/26/23 07/27/23 07/27/23 18:59 06:59 18:59 Intake Total 1372 118 Output Total 2150 600 Balance -778 -600 118 Intake: Oral 1372 118 Output: Urine 2150 600 - Exam No acute distress, oriented x 3. Currently on room air oxygen for now. She is morbidly obese with a BMI of 49.6. Head exam was generally normal. There was no scleral icterus or corneal arcus. Mucous membranes were moist. HEENT examination is grossly unremarkable. Mucous membranes are moist. No oral lesions. Neck supple. Full range of motion. No adenopathy thyromegaly or neck vein distention. Cardiovascular examination reveals regular rhythm rate. S1-S2 normal. No S3 or S4. No discernible murmur noted. H Heart sounds are distant. Lungs reveal inspiratory and expiratory wheezes and rhonchi. No crackles. Breath sounds equal bilaterally. Abdomen soft bowel sounds are heard. No masses or tenderness. Extremities are intact. No cyanosis clubbing there is increased edema lower extremities bilaterally and the patient has +1 pitting edema and there is no active cellulitis in the right lower extremity chavez wound has essentially healed. Skin is without rash or lesion. Neurologic examination is brief but nonfocal. - Labs CBC & Chem 7: 07/25/23 06:01 07/27/23 07:18 Labs: Abnormal Lab Results - Last 24 Hours (Table) 07/26/23 07/26/23 07/26/23 Range/Units 11:25 16:50 20:28 Chloride (98-107) mmol/L Carbon Dioxide (22-30) mmol/L BUN (7-17) mg/dL Glucose (74-99) mg/dL POC Glucose (mg/dL) 157 H 219 H 265 H (70-110) mg/dL 07/27/23 07/27/23 Range/Units 05:47 07:18 Chloride 95 L (98-107) mmol/L Carbon Dioxide 39 H (22-30) mmol/L BUN 32 H (7-17) mg/dL Glucose 157 H (74-99) mg/dL POC Glucose (mg/dL) 148 H (70-110) mg/dL Microbiology - Last 24 Hours (Table) 07/23/23 03:47 Blood Culture - Preliminary Blood 07/23/23 03:32 Blood Culture - Preliminary Blood Assessment and Plan Plan: Acute hypoxemic respiratory failure secondary to COPD exacerbation, and fluid overload. Responding to a combination of bronchodilators, steroids and diuretics. Currently on room air oxygen and the patient was able to bring in his own CPAP machine from home set at a pressure of 11 cm of water. Continues to have signs of fluid overload and the patient is currently on IV Lasix. Acute on chronic dyspnea likely secondary to fluid overload and a component of COPD/asthma exacerbation, improved. Chronic hypoxic/hypercapnic respiratory failure, please refer to previous blood gas done on this patient. Severe obstructive sleep apnea with an AHI of 41 and the patient has been titrated to a CPAP pressure of 11 cm of water Recent fall and head trauma with fracture of facial bones with areas of skin bruising. No open wounds at this point in time. I suspect that her baseline pCO2 is in the 50s. Childhood asthma and the patient reports that she was intub[facility] in the past on multiple occasions as a [facility]. Body mass index of above 50 Prior history of significant tobacco use. Multiple hospitalizations most recent of which was attributed to the right lower extremity cellulitis, treated with Keflex MRSA in the sputum cultures on 07/03/2023 History of atrial fibrillation. Rate is controlled and the patient is on long- term anticoagulation with Eliquis. The rate is controlled at this point in time History of hyperlipidemia. History of hypertension. History of coronary artery disease, with previous PCI/stent placement. History of myocardial infarction. Chronic anxiety/depression. Chronic cellulitis of the lower extremities, currently on IV cefazolin, ID is on the case. Plan Patient has been transitioned to room air oxygen Will asked the patient to utilize her own CPAP machine from home. I checked the compliancy from her machine and the numbers are adequate DuoNeb nebulizer treatments 4 times a day [id number] Patient will be switched to oral prednisone burst taper and oral Lasix 40 mg p.o. twice a day to be continued on outpatient basis No signs of any CO2 narcosis Previous echocardiogram showed a preserved LV function with an ejection fraction of 50 to 55% The patient is to be followed up on outpatient basis regarding her obstructive sleep apnea and chronic hypoxic respiratory failure. Will continue to follow, possible home today.
[2023-07-28] MEDS ORDERED: ERGOCALCIFEROL 1,250 MCG (50,000 IU) CAPSULE PO SCH (09:00)
== END 2023-07-27 16:33 | disposition home or self-care (01) | DRG 194 ==
LOC: EC 20:50 → 4SSUR 22:47 → OBSVTOIN 07-23 12:15 → 4SSUR 07-23 17:54
PROVIDERS: ADMIT Internal Medicine; ATTEND Internal Medicine
PROC: 05HC33Z Insertion of Infusion Device into Left Basilic Vein, Percutaneous Approach (ICD-10-PCS; principal; 2023-07-24 16:45)
DX: I11.0 Hypertensive heart disease with heart failure (principal); F41.9 Anxiety disorder, unspecified; F32.A Depression, unspecified; I25.10 Atherosclerotic heart disease of native coronary artery without angina pectoris; J44.1 Chronic obstructive pulmonary disease with (acute) exacerbation; Z68.42 Body mass index [BMI] 45.0-49.9, adult; J96.22 Acute and chronic respiratory failure with hypercapnia; J96.21 Acute and chronic respiratory failure with hypoxia; I50.33 Acute on chronic diastolic (congestive) heart failure; I48.19 Other persistent atrial fibrillation; E66.2 Morbid (severe) obesity with alveolar hypoventilation; E78.5 Hyperlipidemia, unspecified; S01.81XA Laceration without foreign body of other part of head, initial encounter; L03.115 Cellulitis of right lower limb; I25.2 Old myocardial infarction; Z79.01 Long term (current) use of anticoagulants; L03.116 Cellulitis of left lower limb; W01.0XXA Fall on same level from slipping, tripping and stumbling without subsequent striking against object, initial encounter; Z79.84 Long term (current) use of oral hypoglycemic drugs; Z79.899 Other long term (current) drug therapy; Z95.5 Presence of coronary angioplasty implant and graft; Z99.81 Dependence on supplemental oxygen; Z88.6 Allergy status to analgesic agent
CPT/HCPCS: 36410; 36415; 71046; 76937; 80048; 80053; 80202; 82565; 82803; 83036; 83735; 83880; 84484; 85025; 85027; 85610; 85652; 85730; 86140; 87040; 93005; 94640; 94660; 94760; 96365; 96366; 96375; 96376; 99285

== ENCOUNTER 2023-08-19 11:50 | Inpatient (IN) | payer OTHER ==
--- NOTE | 2023-08-19 12:41 | ED ---
SOB HPI - General Chief Complaint: Shortness of Breath Stated Complaint: SOB Time Seen by Provider: 08/19/23 12:00 Source: patient, EMS, RN notes reviewed, old records reviewed Mode of arrival: EMS Limitations: no limitations - History of Present Illness Initial Comments: 57-year-old female with history of COPD and asthma also history of chronic atrial fibrillation hypertension was just hospitalized this past month for CHF and apparently cellulitis of her lower extremities who is back today by ambulance complaining of 3 days of progressively worsening shortness of breath orthopnea exertional dyspnea also now with a fever and she states that she has had increased edema to her lower extremities as well as redness and pain which is identical to what she had happened before when she has cellulitis. She is on 3 L of oxygen at home with any type of exertion. MD Complaint: shortness of breath - Related Data Home Medications Medication Instructions Recorded Confirmed Apixaban [Eliquis] 5 mg PO BID 10/26/22 07/23/23 Atorvastatin [Lipitor] 40 mg PO HS 10/26/22 07/23/23 Cetirizine HCl 10 mg PO DAILY 10/26/22 07/23/23 FLUoxetine HCL [PROzac] 40 mg PO DAILY@1200 10/26/22 07/23/23 Folic Acid 1 mg PO DAILY 10/26/22 07/23/23 Gabapentin [Neurontin] 300 mg PO BID 10/26/22 07/23/23 HYDROcodone/APAP 5-325MG [[place] 1 tab PO TID 10/26/22 07/23/23 5-325] Mirtazapine [Remeron] 15 mg PO HS 10/26/22 07/23/23 Montelukast [Singulair] 10 mg PO DAILY 10/26/22 07/23/23 Dulaglutide [Trulicity] 1.5 mg SQ SA 06/21/23 07/23/23 Ergocalciferol [Vitamin D2 (1250 1,250 mcg PO SA 06/21/23 07/23/23 Mcg = 14428 Iu)] Ipratropium-Albuterol Nebulize 3 ml INHALATION RT-QID 06/21/23 07/23/23 [Duoneb 0.5 mg-3 mg/3 ml Soln] Omeprazole 20 mg PO DAILY 06/21/23 07/23/23 lisinopriL [Zestril] 5 mg PO DAILY 06/21/23 07/23/23 Previous Rx's Medication Instructions Recorded Fluticasone Nasal [place] [Flonase 2 spray EA NOSTRIL DAILY ml 06/27/23 Nasal [place]] guaiFENesin [Mucinex] 1,200 mg PO Q12HR tab 06/27/23 Cephalexin [Keflex] 500 mg PO Q6HR 10 Days #40 cap 07/27/23 Furosemide [Lasix] 40 mg PO BID@0900,1600 #60 tab 07/27/23 Metoprolol Tartrate [Lopressor] 100 mg PO BID #60 tab 07/27/23 predniSONE See Taper PO DIRECTED #30 tab 07/27/23 Allergies Allergy/AdvReac Type Severity Reaction Status Date / Time ibuprofen Allergy Rash/Hives Verified 08/19/23 12:01 NSAIDS (Non-Steroidal Allergy Rash/Hives Verified 08/19/23 12:01 Anti-Inflamma tetracycline Allergy Rash/Hives Verified 08/19/23 12:01 Review of Systems ROS Statement: Those systems with pertinent positive or pertinent negative responses have been documented in the HPI. ROS Other: All systems not noted in ROS Statement are negative. Past Medical History Past Medical History: Atrial Fibrillation, Asthma, COPD, Hyperlipidemia, Hypertension, Myocardial Infarction ([place]), Respiratory Disorder Additional Past Medical History / Comment(s): wears oxygen 3lnc when mobile, +RSV 06/2023 Last Myocardial Infarction Date:: 2021 History of Any Multi-Drug Resistant Organisms: None Reported Past Surgical History: Heart Catheterization With Stent, Orthopedic Surgery Additional Past Surgical History / Comment(s): metal plate right arm, oral surgery fracture jawed,hx gallstones Past Anesthesia/Blood Transfusion Reactions: No Reported Reaction Additional Past Anesthesia/Blood Transfusion Reaction / Comment(s): No blood transfusion Date of Last Stent Placement:: 2021 Past Psychological History: Anxiety, Depression Smoking Status: Former smoker Past Alcohol Use History: None Reported Past Drug Use History: None Reported - Past Family History Mother Family Medical History: Cancer Additional Family Medical History / Comment(s): uterine, breast, lymph nodes General Exam - General Exam Comments Initial Comments: This is a well-developed obese female who is awake alert oriented x 4 Limitations: no limitations General appearance: alert, anxious Head exam: Present: atraumatic, normocephalic, normal inspection Eye exam: Present: normal appearance, PERRL, EOMI. Absent: scleral icterus, conjunctival injection, periorbital swelling ENT exam: Present: normal exam, mucous membranes moist Neck exam: Present: normal inspection, full ROM, other (No stridor JVD or bruits). Absent: tenderness, meningismus, lymphadenopathy Respiratory exam: Present: rales, decreased breath sounds, other (Rales at the bases more so on the right than the left). Absent: respiratory distress, wheezes, rhonchi, stridor Cardiovascular Exam: Present: tachycardia, irregular rhythm. Absent: systolic murmur, diastolic murmur, rubs, gallop, clicks GI/Abdominal exam: Present: soft, normal bowel sounds. Absent: distended, tenderness, guarding, rebound, rigid Rectal exam: Present: deferred Extremities exam: Present: full ROM, tenderness, normal capillary refill, pedal edema, other (Lower extremity erythema tenderness to palpation over the anterior legs bilaterally no definitive calf tenderness, no definitive evidence of infectious processes). Absent: joint swelling, calf tenderness Back exam: Present: normal inspection Neurological exam: Present: alert, oriented X3, CN II-XII intact Psychiatric exam: Present: normal affect, normal mood Skin exam: Present: warm, dry, intact, other (As noted above on the extremities). Absent: rash Course Vital Signs 08/19/23 08/19/23 08/19/23 11:57 12:05 13:41 Temperature 99.7 F H Pulse Rate 105 H 113 H Pulse Rate [ 105 H Clinical Science Consultant ] Respiratory 32 H 32 H 32 H Rate Blood Pressure 109/70 122/97 O2 Sat by Pulse 91 L 93 L Oximetry Medical Decision Making - Medical Decision Making I did discuss the findings with the patient and with the on-call physician Dr. Stauffer. The patient will be admitted with treatment for congestive failure does have a febrile illness. Was pt. sent in by a medical professional or inst itution (, PA, DATA WAREHOUSING SPECIALIST, urgent care, hospital, or fpc...) When possible be specific @ -No Did you speak to anyone other than the patient for history (EMS, parent, family, police, friend...)? What history was obtained from this source @ -No Did you review nursing and triage notes (agree or disagree)? Why? @ -I reviewed and agree with nursing and triage notes Were old charts reviewed (outside hosp., previous admission, EMS record, old EKG, old radiological studies, urgent care reports/EKG's, fpc records)? Report findings @ -Old charts were reviewed Differential Diagnosis (chest pain, altered mental status, abdominal pain women, abdominal pain men, vaginal bleeding, weakness, fever, dyspnea, syncope, headache, dizziness, GI bleed, back pain, seizure, CVA, palpatations, mental health, musculoskeletal)? @ -Dyspnea EKG interpreted by me (3pts min.). @ -As above EKG interpreted by me atrial fibrillation with a rate of 100 QRS duration 85 QT/QTc 337/394 low voltage is no evidence of acute ST-T wave changes X-rays interpreted by me (1pt min.). @ -Increased pulmonary vascular markings consistent with congestive failure this is interpreted by me CT interpreted by me (1pt min.). @ -None done U/S interpreted by me (1pt. min.). @ -None done What testing was considered but not performed or refused? (CT, X-rays, U/S, labs)? Why? @ -None What meds were considered but not given or refused? Why? @ -None Did you discuss the management of the patient with other professionals (professionals i.e. , PA, DATA WAREHOUSING SPECIALIST, lab, RT, psych nurse, social service technician, propulsion systems engineer, teacher, placement officer, case management coordinator)? Give summary @ -Dr. Stauffer Was smoking cessation discussed for >3mins.? @ -No Was critical care preformed (if so, how long)? @ -31 minutes Were there social determinants of health that impacted care today? How? (Homelessness, low income, unemployed, alcoholism, drug addiction, transportation, low edu. Level, literacy, decrease access to med. care, nursing home, rehab)? @ -No Was there de-escalation of care discussed even if they declined (Discuss DNR or withdrawal of care, Hospice)? DNR status @ -No What co-morbidities impacted this encounter? (DM, HTN, Smoking, COPD, CAD, Cancer, CVA, ARF, Chemo, Hep., AIDS, mental health diagnosis, sleep apnea, morbid obesity)? @ -Atrial fibrillation, CHF, history of cellulitis history of COPD, hypertension Was patient admitted / discharged? Hospital course, mention meds given and route, prescriptions, significant lab abnormalities, going to OR and other pertinent info. @ -The patient was admitted for inpatient evaluation and treatment of CHF and dyspnea elevated BNP Undiagnosed new problem with uncertain prognosis? @ -No Drug Therapy requiring intensive monitoring for toxicity (Heparin, Nitro, Insulin, Cardizem)? @ -No Were any procedures done? @ -No Diagnosis/symptom? @ -Acute CHF, acute dyspnea, elevated BNP, febrile illness, peripheral edema Acute, or Chronic, or Acute on Chronic? @ -Acute Uncomplicated (without systemic symptoms) or Complicated (systemic symptoms)? @ -Complicated] Side effects of treatment? @ -No Exacerbation, Progression, or Severe Exacerbation? @ -Exacerbation Poses a threat to life or bodily function? How? (Chest pain, [place], [place], pneumonia, PE, COPD, DKA, ARF, appy, cholecystitis, CVA, Diverticulitis, Homicidal, Suicidal, threat to staff... and all critical care pts) @ -Potential, CHF - Lab Data Result diagrams: 08/19/23 13:04 08/19/23 13:04 Lab Results 08/19/23 08/19/23 08/19/23 Range/Units 13:04 13:04 13:04 WBC 9.1 (3.8-10.6) k/uL RBC 3.93 (3.80-5.40) m/uL Hgb 11.2 L (11.4-16.0) gm/dL Hct 36.8 (34.0-46.0) % MCV 93.7 (80.0-100.0) fL MCH 28.6 (25.0-35.0) pg MCHC 30.5 L (31.0-37.0) g/dL RDW 18.7 H (11.5-15.5) % Plt Count 284 (150-450) k/uL MPV 9.0 Neutrophils % 87 % Lymphocytes % 7 % Monocytes % 3 % Eosinophils % 2 % Basophils % 0 % Neutrophils # 7.9 H (1.3-7.7) k/uL Lymphocytes # 0.6 L (1.0-4.8) k/uL Monocytes # 0.3 (0-1.0) k/uL Eosinophils # 0.2 (0-0.7) k/uL Basophils # 0.0 (0-0.2) k/uL Hypochromasia Marked Poikilocytosis Slight Anisocytosis Slight Macrocytosis Slight PT 11.4 (10.0-12.5) sec INR 1.1 (<1.2) APTT 25.6 (22.0-30.0) sec D-Dimer 0.56 (<0.60) mg/L FEU Sodium 141 (137-145) mmol/L Potassium 4.6 (3.5-5.1) mmol/L Chloride 104 (98-107) mmol/L Carbon Dioxide 27 (22-30) mmol/L Anion Gap 10 mmol/L BUN 16 (7-17) mg/dL Creatinine 0.49 L (0.52-1.04) mg/dL Est GFR (CKD-EPI)AfAm >90 (>60 ml/min/1.73 sqM) Est GFR (CKD-EPI)NonAf >90 (>60 ml/min/1.73 sqM) Glucose 160 H (74-99) mg/dL Plasma Lactic Acid Rom (0.7-2.0) mmol/L Calcium 8.8 (8.4-10.2) mg/dL Magnesium 1.8 (1.6-2.3) mg/dL Total Bilirubin 0.8 (0.2-1.3) mg/dL AST 24 (14-36) U/L ALT 22 (4-34) U/L Alkaline Phosphatase 104 (38-126) U/L Troponin I (0.000-0.034) ng/mL NT-Pro-B Natriuret Pep 3020 pg/mL Total Protein 6.3 (6.3-8.2) g/dL Albumin 3.6 (3.5-5.0) g/dL 08/19/23 08/19/23 Range/Units 13:04 13:04 WBC (3.8-10.6) k/uL RBC (3.80-5.40) m/uL Hgb (11.4-16.0) gm/dL Hct (34.0-46.0) % MCV (80.0-100.0) fL MCH (25.0-35.0) pg MCHC (31.0-37.0) g/dL RDW (11.5-15.5) % Plt Count (150-450) k/uL MPV Neutrophils % % Lymphocytes % % Monocytes % % Eosinophils % % Basophils % % Neutrophils # (1.3-7.7) k/uL Lymphocytes # (1.0-4.8) k/uL Monocytes # (0-1.0) k/uL Eosinophils # (0-0.7) k/uL Basophils # (0-0.2) k/uL Hypochromasia Poikilocytosis Anisocytosis Macrocytosis PT (10.0-12.5) sec INR (<1.2) APTT (22.0-30.0) sec D-Dimer (<0.60) mg/L FEU Sodium (137-145) mmol/L Potassium (3.5-5.1) mmol/L Chloride (98-107) mmol/L Carbon Dioxide (22-30) mmol/L Anion Gap mmol/L BUN (7-17) mg/dL Creatinine (0.52-1.04) mg/dL Est GFR (CKD-EPI)AfAm (>60 ml/min/1.73 sqM) Est GFR (CKD-EPI)NonAf (>60 ml/min/1.73 sqM) Glucose (74-99) mg/dL Plasma Lactic Acid Rom 1.4 (0.7-2.0) mmol/L Calcium (8.4-10.2) mg/dL Magnesium (1.6-2.3) mg/dL Total Bilirubin (0.2-1.3) mg/dL AST (14-36) U/L ALT (4-34) U/L Alkaline Phosphatase (38-126) U/L Troponin I <0.012 (0.000-0.034) ng/mL NT-Pro-B Natriuret Pep pg/mL Total Protein (6.3-8.2) g/dL Albumin (3.5-5.0) g/dL - EKG Data -: EKG Interpreted by Me EKG shows normal: sinus rhythm EKG Comments: Fibrillation rhythm with a response rate of 100 QRS duration 85 QT/QTc 337/394 low voltage no acute ST-T wave changes - Radiology Data Interpreted by me: X-ray interpreted by me evidence of increased pulmonary vascular markings consistent with congestive failure Critical Care Time Critical Care Time: Yes Total Critical Care Time: 31 Disposition Clinical Impression: Diastolic congestive heart failure, COPD exacerbation, Chronic atrial fibrillation, Febrile illness, acute, Elevated brain natriuretic peptide (BNP) level, Stasis dermatitis of both legs Disposition: ADMITTED IP TO THIS HOSP Condition: Fair Referrals: Sugey Chester MD [Primary Care Provider] - 1-2 days Time of Disposition: 16:00 Decision Date: 08/19/23 Decision Time: 16:25
[2023-08-19] MEDS: FUROSEMIDE 10 MG/ML 4 ML VIAL IV STA (13:35)
[2023-08-19 13:42] LABS: Anisocytosis Slight; Basophils % (A) 0 %; Eosinophils # (A) 0.2 k/uL (0-0.7); Eosinophils % (A) 2 %; HCT 36.8 % (34.0-46.0); HGB 11.2 gm/dL (11.4-16.0); Hypochromasia Marked; Lymphocytes # (A) 0.6 k/uL (1.0-4.8); Lymphocytes % (A) 7 %; MCH 28.6 pg (25.0-35.0); MCHC 30.5 g/dL (31.0-37.0); MCV 93.7 fL (80.0-100.0); Macrocytosis Slight; Monocytes # (A) 0.3 k/uL (0-1.0); Monocytes % (A) 3 %; Neutrophils # (A) 7.9 k/uL (1.3-7.7); Neutrophils % (A) 87 %; Platelet Count 284 k/uL (150-450); Poikilocytosis Slight; RBC 3.93 m/uL (3.80-5.40); RDW 18.7 % (11.5-15.5); WBC 9.1 k/uL (3.8-10.6)
[2023-08-19 13:54] LABS: INR 1.1 (<1.2); Partial Thromboplastin Time 25.6 sec (22.0-30.0); Prothrombin Time 11.4 sec (10.0-12.5)
--- NOTE | 2023-08-19 13:59 | XR ---
EXAMINATION TYPE: XR chest 2V DATE OF EXAM: 08/19/2023 COMPARISON: 07/26/2023 HISTORY: Difficulty breathing and history of CHF TECHNIQUE: Frontal and lateral views of the chest are obtained. FINDINGS: There is moderate to marked cardiomegaly. There is mild edema in the fissures and possibly mild inter stitial edema. Pulmonary vasculature is not cephalized. There is no pneumothorax or pleural effusion. There is no airspace consolidation. The osseous structures are intact IMPRESSION: . IMPRESSION: Probable mild CHF similar to what was seen on the prior study dated 07/26/2023
[2023-08-19 14:09] LABS: ALT 22 U/L (4-34); AST 24 U/L (14-36); African American GFR (CKD) >90 (>60 ml/min/1.73 sqM); Albumin 3.6 g/dL (3.5-5.0); Alkaline Phosphatase 104 U/L (38-126); Anion Gap 10 mmol/L; Blood Urea Nitrogen 16 mg/dL (7-17); Calcium 8.8 mg/dL (8.4-10.2); Carbon Dioxide 27 mmol/L (22-30); Chloride 104 mmol/L (98-107); Glucose 160 mg/dL (74-99); Magnesium 1.8 mg/dL (1.6-2.3); Non-African American GFR(CKD) >90 (>60 ml/min/1.73 sqM); Potassium 4.6 mmol/L (3.5-5.1); Sodium 141 mmol/L (137-145); Total Bilirubin 0.8 mg/dL (0.2-1.3); Total Protein 6.3 g/dL (6.3-8.2)
[2023-08-19 14:13] LABS: NT-Pro-B-Type Natriuretic Pept 3020 pg/mL
[2023-08-19] MEDS: methylPREDNISolone SOD SUCCI 125 MG/2 ML VIAL IV STA (14:45)
[2023-08-19] MEDS ORDERED: HYDROcodone/APAP 5-325MG 1 EACH TAB PO PRN (16:04)
[2023-08-19] MEDS ORDERED: NALOXONE 0.4 MG/ML 1 ML VIAL IVP PRN (16:04)
[2023-08-19] MEDS ORDERED: IPRATROPIUM-ALBUTEROL 3 ML NEB INHALATION PRN (16:29)
[2023-08-19] MEDS: IPRATROPIUM-ALBUTEROL 3 ML NEB INHALATION SCH (17:55)
--- NOTE | 2023-08-19 17:57 | P.HPIM ---
History of Present Illness H&P Date: 08/19/23 History of Presenting Illness: Patient is a 57-year-old female with a past medical history of CAD with stenting, chronic diastolic heart failure, hypertension, hyperlipidemia, chronic atrial fibrillation on anticoagulation with Eliquis, type II [id number] diabetes mellitus, chronic venous stasis dermatitis with chronic bilateral lower extremity edema, severe obstructive sleep apnea CPAP dependent, and chronic hypoxic respiratory failure secondary to advanced COPD home oxygen dependent 3 L. She presented to the emergency department with a chief complaint of increasing shortness of breath, cough and increasing bilater al lower extremity swelling and pain over the past 3 days. She reports severe orthopnea and has to sleep sitting up. She also states that her legs are jist extremely sore and swollen and reports that she is certain she has bilateral lower extremity cellulitis. Patient admits that she has not been wrapping or elevating her legs as previously instructed because they are too sore. She denies headache, lightheadeness, dizziness, chest pain, palpitations, nausea, vomiting, or experiencing any focal numbness or tingling. She underwent evaluation in the emergency department. Vital signs upon arrival show blood pressure 109/70, heart rate 105, respiratory rate 32, temp 99.7 F, and SpO2 of 91% on 3 L.. EKG was completed showing atrial fibrillation at 100 bpm. Chest x-ray completed showing moderate to marked cardiomegaly with mild edema in the fissures and possibly mild interstitial edema, per radiology report similar to what was seen on prior study 07/26/2023. Labs completed and reviewed. CBC showing normocytic anemia with hemoglobin stable and at baseline at 11.2. Coagulation profile normal findings. D-dimer was negative at 0.56. BMP unremarkable. Lactic acid normal findings at 1.6. Liver profile unremarkable. Troponin less than 0.012. ProBNP elevated at 3020. Cepheid 4 Plex viral panel pending. Patient was admitted under our services with consultation to cardiology and pulmonology. Review of systems: Pertinent positives and negatives as discussed in HPI, a complete review of systems was performed and all other systems are negative. Physical exam: Vital signs reviewed and stable. General: Nontoxic, no distress and appears stated age. Morbidly obese. Derm: Skin warm and dry, normal coloration for ethnicity. Head: Atraumatic, normocephalic and symmetric. Eyes: EOMs intact, no lid lag, and anicteric sclera Mouth: no lip lesions, mucus membranes moist Cardiovascular: regular rate and rhythm with normal S1S2, no murmur, positive posterior tibial pulses bilaterally, and cap refill < 2 seconds. Lungs: Respirations even, regular, and unlabored on room air. Lungs CTA bilaterally, no rhonchi, no rales, no wheezing, and no accessory muscle usage. Abdominal: soft, nontender to palpation, no guarding, no appreciable organomegaly Ext: ROM intact. No gross muscle atrophy, 2+ pitting bilateral lower extremity edema, no contractures. Neuro: Speech clear, face symmetrical and CN II-XII grossly intact with no noted focal neuro deficits Psych: Alert and oriented to person, place, time, and situation. Appropriate and pleasant affect. Assessment and Plan of Care: Acute on chronic hypoxic respiratory failure Acute on chronic diastolic heart failure exacerbation COPD with chronic oxygen dependency, baseline 3 L at all times Severe obstructive sleep apnea Chronic atrial fibrillation on anticoagulation with Eliquis CAD with previous stent Hypertension Hyperlipidemia -Continue oxygen supplementation, patient's baseline oxygen needs 3 L at all times. May titrate as needed to maintain SpO2 equal to or greater than 90%. -Continue CPAP nightly and while napping. -Pulmonology consulted, appreciate recommendations -Cardiology consulted, appreciate recommendations. -Continue scheduled DuoNebs 4 times daily and as needed for shortness of breath and/or wheezing, Flonase 2 sprays each nostril daily, and Singulair 10 mg nightly. -Lasix 40 mg IV twice daily -Order placed for strict I's and O's and daily weights -Patient placed empirically on Augmentin 875/125 mg tablets every 12 hours x 5 days. -Steroids with prednisone 40 mg daily x 5 days. -Telemetry monitoring Bilateral lower extremity edema with venous stasis dermatitis -Symptomatic care and pain management. -Order placed for Haresh wrap to bilateral lower extremities and encourage elevation of lower extremities when not in use -Fall precautions -Recommend outpatient follow-up with vascular surgery for further evaluation of chronic peripheral vascular deficiency. Type II [id number] diabetes mellitus with hemoglobin A1c of 7%. -Hold Trulicity and place patient on glycemic protocol with NovoLog sliding scale. Morbid obesity with BMI of 50.8 kg/m -Recommend structured outpatient weight management program. Data and imaging reviewed: As stated above in HPI. . The patient is admitted with an anticipated less than 2 midnight stay for evaluation of acute on chronic respiratory failure with hypoxia CODE STATUS: Full code DVT prophylaxis: Eliquis Anticipated discharge date: Anticipate discharge within the next [address]: Home with home care, recommend palliative care Patient was seen independently by Nurse Practitioner. This document was prepared using [employer] dictation software. Please allow for errors in cna hha while rare they do occur .Kush Segovia NP rendered care for this patient independently, reviewed the findings and plan as documented in the note above. I did not physically speak with or examine the patient on this date. Past Medical History Past Medical History: Atrial Fibrillation, Asthma, COPD, Hyperlipidemia, Hyp ertension, Myocardial Infarction ([place]), Respiratory Disorder Additional Past Medical History / Comment(s): wears oxygen 3lnc when mobile, +RSV 06/2023 Last Myocardial Infarction Date:: 2021 History of Any Multi-Drug Resistant Organisms: None Reported Past Surgical History: Heart Catheterization With Stent, Orthopedic Surgery Additional Past Surgical History / Comment(s): metal plate right arm, oral surgery fracture jawed,hx gallstones Past Anesthesia/Blood Transfusion Reactions: No Reported Reaction Additional Past Anesthesia/Blood Transfusion Reaction / Comment(s): No blood transfusion Date of Last Stent Placement:: 2021 Past Psychological History: Anxiety, Depression Smoking Status: Former smoker Past Alcohol Use History: None Reported Past Drug Use History: None Reported - Past Family History Mother Family Medical History: Cancer Additional Family Medical History / Comment(s): uterine, breast, lymph nodes Medications and Allergies Home Medications Medication Instructions Recorded Confirmed Type Apixaban [Eliquis] 5 mg PO BID 10/26/22 08/19/23 History Atorvastatin [Lipitor] 40 mg PO HS 10/26/22 08/19/23 History Cetirizine HCl 10 mg PO DAILY 10/26/22 08/19/23 History FLUoxetine HCL [PROzac] 40 mg PO DAILY@1200 10/26/22 08/19/23 History Folic Acid 1 mg PO DAILY 10/26/22 08/19/23 History Gabapentin [Neurontin] 300 mg PO BID 10/26/22 08/19/23 History Mirtazapine [Remeron] 15 mg PO HS 10/26/22 08/19/23 History Montelukast [Singulair] 10 mg PO HS 10/26/22 08/19/23 History Dulaglutide [Trulicity] 1.5 mg SQ SA 06/21/23 08/19/23 History Ergocalciferol [Vitamin D2 (1250 1,250 mcg PO SA 06/21/23 08/19/23 History Mcg = 78151 Iu)] Ipratropium-Albuterol Nebulize 3 ml INHALATION RT-QID 06/21/23 08/19/23 History [Duoneb 0.5 mg-3 mg/3 ml Soln] Omeprazole 20 mg PO DAILY 06/21/23 08/19/23 History lisinopriL [Zestril] 5 mg PO DAILY 06/21/23 08/19/23 History Fluticasone Nasal [place] [Flonase 2 spray EA NOSTRIL DAILY ml 06/27/23 08/19/23 Rx Nasal [place]] guaiFENesin [Mucinex] 1,200 mg PO Q12HR tab 06/27/23 08/19/23 Rx Furosemide [Lasix] 40 mg PO BID@0900,1600 #60 tab 07/27/23 08/19/23 Rx HYDROcodone/APAP 10-325MG [[place] 1 tab PO TID 08/19/23 08/19/23 History 10-325] Metoprolol Tartrate [Lopressor] 100 mg PO BID 08/19/23 08/19/23 History Spironolactone [Aldactone] 25 mg PO DAILY 90 Days #90 tab 08/21/23 Rx predniSONE See Taper PO DIRECTED 16 Days 08/21/23 Rx #40 tab Allergies Allergy/AdvReac Type Severity Reaction Status Date / Time ibuprofen Allergy Rash/Hives Verified 08/19/23 12:01 NSAIDS (Non-Steroidal Allergy Rash/Hives Verified 08/19/23 12:01 Anti-Inflamma tetracycline Allergy Rash/Hives Verified 08/19/23 12:01 Physical Exam Vitals: Vital Signs Temp Pulse Pulse Resp BP Pulse Ox 08/19/23 13:41 113 H 32 H 122/97 93 L 08/19/23 12:05 105 H 32 H 08/19/23 11:57 99.7 F H 105 H 32 H 109/70 91 L Intake and Output 08/19/23 08/19/23 08/19/23 06:59 14:59 22:59 Other: Weight 130.181 kg Results CBC & Chem 7: 08/19/23 13:04 08/21/23 09:03 Labs: Abnormal Lab Results - Last 24 Hours (Table) 08/19/23 08/19/23 Range/Units 13:04 13:04 Hgb 11.2 L (11.4-16.0) gm/dL MCHC 30.5 L (31.0-37.0) g/dL RDW 18.7 H (11.5-15.5) % Neutrophils # 7.9 H (1.3-7.7) k/uL Lymphocytes # 0.6 L (1.0-4.8) k/uL Creatinine 0.49 L (0.52-1.04) mg/dL Glucose 160 H (74-99) mg/dL
[2023-08-19] MEDS: METOPROLOL TARTRATE 50 MG TAB PO SCH (20:57)
[2023-08-19] MEDS: MIRTAZAPINE 15 MG TAB PO SCH (20:57)
[2023-08-19] MEDS: AMOXIC-POT CLAV 875-125MG 1 EACH TAB PO SCH (20:58)
[2023-08-19] MEDS: GABAPENTIN 300 MG CAP PO SCH (20:58)
[2023-08-19] MEDS: APIXABAN 5 MG TAB PO SCH (20:58)
[2023-08-19] MEDS: ATORVASTATIN 40 MG TAB PO SCH (20:58)
[2023-08-19] MEDS: FUROSEMIDE 10 MG/ML 4 ML VIAL IV SCH (21:02)
[2023-08-19] MEDS ORDERED: HYDROcodone/APAP 5-325MG 1 EACH TAB PO SCH (22:00)
[2023-08-19] MEDS: HYDROcodone/APAP 10-325MG 1 EACH TAB PO SCH (23:13)
[2023-08-20] MEDS: LORATADINE 10 MG TAB PO SCH (08:25)
[2023-08-20] MEDS: FOLIC ACID 1 MG TAB PO SCH (08:25)
[2023-08-20] MEDS: PANTOPRAZOLE 40 MG TABLET PO SCH (08:25)
[2023-08-20] MEDS: lisinopriL 5 MG TAB PO SCH (08:25)
[2023-08-20] MEDS: predniSONE 20 MG TAB PO SCH (08:25)
[2023-08-20] MEDS: FLUTICASONE 50MCG/SPRAY NASAL 16GM EA NOSTRIL SCH (09:37)
[2023-08-20] MEDS: FLUoxetine HCL 20 MG CAP PO SCH (10:45)
--- NOTE | 2023-08-20 12:56 | P.PN ---
Subjective Progress Note Date: 08/20/23 Hospital course: Patient is a 57-year-old female with a past medical history of CAD with stenting, chronic diastolic heart failure, hypertension, hyperlipidemia, chronic atrial fibrillation on anticoagulation with Eliquis, type II non-insulin- dependent diabetes mellitus, chronic venous stasis dermatitis with chronic bilateral lower extremity edema, severe obstructive sleep apnea CPAP dependent, and chronic hypoxic respiratory failure secondary to advanced COPD home oxygen dependent 3 L. She presented to the emergency department with a chief complaint of increasing shortness of breath, cough and increasing bilateral lower extremity swelling and pain over the past 3 days. She reports severe orthopnea and has to sleep sitting up. She also states that her legs are jist extremely sore and swollen and reports that she is certain she has bilateral lower extremity cellulitis. Patient admits that she has not been wrapping or elevati ng her legs as previously instructed because they are too sore. She denies headache, lightheadeness, dizziness, chest pain, palpitations, nausea, vomiting, or experiencing any focal numbness or tingling. She underwent evaluation in the emergency department. Vital signs upon arrival show blood pressure 109/70, heart rate 105, respiratory rate 32, temp 99.7 F, and SpO2 of 91% on 3 L.. EKG was completed showing atrial fibrillation at 100 bpm. Chest x-ray completed showing moderate to marked cardiomegaly with mild edema in the fissures and possibly mild interstitial edema, per radiology report similar to what was seen on prior study 07/26/2023. Labs completed and reviewed. CBC showing normocytic anemia with hemoglobin stable and at baseline at 11.2. Coagulation profile normal findings. D-dimer was negative at 0.56. BMP unremarkable. Lactic acid normal findings at 1.6. Liver profile unremarkable. Troponin less than 0.012. ProBNP elevated at 3020. Cepheid 4 Plex viral panel pending. Patient was admitted under our services with consultation to cardiology and pulmonology. Physical exam: Vital signs reviewed and stable. General: Nontoxic, no distress and appears stated age. Morbidly obese. Derm: Skin warm and dry, normal coloration for ethnicity. Head: Atraumatic, normocephalic and symmetric. Eyes: EOMs intact, no lid lag, and anicteric sclera Mouth: no lip lesions, mucus membranes moist Cardiovascular: regular rate and rhythm with normal S1S2, no murmur, positive posterior tibial pulses bilaterally, and cap refill < 2 seconds. Lungs: Respirations even, regular, and unlabored. Lungs diminished, no rhonchi, no rales, no wheezing, and no accessory muscle usage. Abdominal: soft, nontender to palpation, no guarding, no appreciable organomegaly Ext: ROM intact. No gross muscle atrophy, 2+ pitting bilateral lower extremity edema, no contractures. Neuro: Speech clear, face symmetrical and CN II-XII grossly intact with no noted focal neuro deficits Psych: Alert and oriented to person, place, time, and situation. Appropriate and pleasant affect. Assessment and Plan of Care: Acute on chronic hypoxic respiratory failure Acute on chronic diastolic heart failure exacerbation COPD with chronic oxygen dependency, baseline 3 L at all times Severe obstructive sleep apnea Chronic atrial fibrillation on anticoagulation with Eliquis CAD with previous stent Hypertension Hyperlipidemia -Continue oxygen supplementation, patient's baseline oxygen needs 3 L at all times. May titrate as needed to maintain SpO2 equal to or greater than 90%. -Continue CPAP nightly and while napping. -Pulmonology consulted, appreciate recommendations -Cardiology following and started patient on Aldactone 25 mg daily -Continue scheduled DuoNebs 4 times daily and as needed for shortness of breath and/or wheezing, Flonase 2 sprays each nostril daily, and Singulair 10 mg nightly. -Lasix 40 mg IV twice daily -Order placed for strict I's and O's and daily weights -Patient placed empirically on Augmentin 875/125 mg tablets every 12 hours x 5 days. -Steroids with prednisone 40 mg daily x 5 days. -Telemetry monitoring Bilateral lower extremity edema with venous stasis dermatitis -Symptomatic care and pain management. -Order placed for Haresh wrap to bilateral lower extremities and encourage elevation of lower extremities when not in use -Fall precautions -Recommend outpatient follow-up with vascular surgery for further evaluation of chronic peripheral vascular deficiency. Type II [id number] diabetes mellitus with hemoglobin A1c of 7%. Hold Trulicity and place patient on glycemic protocol with NovoLog sliding scale. Morbid obesity with BMI of 50.8 kg/m Recommend structured outpatient weight management program. Data and imaging reviewed: Repeat morning BMP and magnesium pending. Will follow-up on these results and place additional orders if indicated based upon the findings. Vital signs reviewed. Blood pressure 104/73, heart rate 102, respiratory rate 19, CODE STATUS: Full code DVT prophylaxis: Eliquis Anticipated discharge date: Anticipate discharge within the next [address]: Home with home care, recommend palliative care referral and discussed this with case management Patient was seen independently by Nurse Practitioner. This document was prepared using [facility] dictation software. Please allow for errors in lens [employer]ating machine tender while rare they do occur .Kush Segovia MANAGER TRAVEL rendered care for this patient independently, reviewed the findings and plan as documented in the note above. I did not physically speak with or examine the patient on this date. Objective - Vital Signs Vital signs: Vital Signs Temp 98.0 F 08/19/23 23:16 Pulse 96 08/20/23 06:00 Resp 21 08/20/23 06:00 BP 97/71 08/20/23 06:00 Pulse Ox 99 08/20/23 06:00 FiO2 85 08/20/23 02:18 Intake & Output 08/19/23 08/20/23 08/20/23 18:59 06:59 18:59 Weight 130.181 kg - Labs CBC & Chem 7: 08/19/23 13:04 08/21/23 09:03 Labs: Abnormal Lab Results - Last 24 Hours (Table) 08/19/23 08/19/23 Range/Units 13:04 13:04 Hgb 11.2 L (11.4-16.0) gm/dL MCHC 30.5 L (31.0-37.0) g/dL RDW 18.7 H (11.5-15.5) % Neutrophils # 7.9 H (1.3-7.7) k/uL Lymphocytes # 0.6 L (1.0-4.8) k/uL Creatinine 0.49 L (0.52-1.04) mg/dL Glucose 160 H (74-99) mg/dL
[2023-08-20] MEDS: MONTELUKAST 10 MG TAB PO SCH ×2 (13:20→20:49)
[2023-08-20] MEDS: METOPROLOL TARTRATE 50 MG TAB PO SCH ×2 (13:32→20:54)
--- NOTE | 2023-08-20 14:42 | CONS ---
CONSULTATION HISTORY OF PRESENT ILLNESS: I was asked to see this patient mainly because of multiple comorbid conditions in the form of chronic atrial fibrillation, which is not new for her and also some diastolic heart failure. This lady was apparently evaluated in May and also in June when she came in with complaints of having lower extremity edema, shortness of breath with chronic atrial fibrillation. She also had a cardiac catheterization apparently, details are unavailable, but she claims she did not have any significant blockages. She is in atrial fib, rate is fairly well controlled. She complained of some chest pain when she came in, but the pain has resolved. She is comfortable resting without any shortness of breath or discomfort. She may have some underlying diastolic heart failure, but she does have chronic atrial fibrillation. At the time of my evaluation, she is resting comfortably without symptoms. EKG revealed atrial fibrillation with a controlled ventricular rate with nonspecific ST and T-wave changes. She was recently discharged from the hospital about 3 weeks ago. She has underlying COPD, bronchial asthma, chronic atrial fibrillation as her underlying problems. She is on Eliquis, Lipitor, Prozac. She is also on metoprolol tartrate 100 mg b.i.d., Lasix 40 mg b.i.d. PHYSICAL EXAMINATION: VITAL SIGNS: Blood pressure is 108/70, pulse rate is about 90 to 100, irregular. HEENT: Unremarkable. Fundus was not examined by me. NECK: Supple. There is 1 cm JVD. No carotid bruit. HEART: Reveals S1, S2 with irregular rate and rhythm. Short systolic murmur. LUNGS: Reveal diminished air entry. ABDOMEN: Soft. EXTREMITIES: Lower extremities reveal diminished pulses. CENTRAL NERVOUS SYSTEM: Grossly within normal limits. IMPRESSION: 1. Exacerbation of diastolic heart failure. 2. Chronic atrial fibrillation. 3. The patient has multiple comorbid conditions, was recently hospitalized. Ejection fraction in the 50% range. RECOMMENDATIONS: I would recommend that we cautiously diurese her. Intravenously add 25 mg Aldactone daily. Seek Pulmonary evaluation as well and based on clinical course, we will make further recommendations. Prognosis remains guarded. MMODL / IJN: [id number] /
[2023-08-20 14:57] LABS: African American GFR (CKD) >90 (>60 ml/min/1.73 sqM); Anion Gap 1 mmol/L; Blood Urea Nitrogen 23 mg/dL (7-17); Calcium 8.5 mg/dL (8.4-10.2); Carbon Dioxide 39 mmol/L (22-30); Chloride 98 mmol/L (98-107); Glucose 173 mg/dL (74-99); Magnesium 1.8 mg/dL (1.6-2.3); Non-African American GFR(CKD) >90 (>60 ml/min/1.73 sqM); Potassium 4.8 mmol/L (3.5-5.1); Sodium 138 mmol/L (137-145)
--- NOTE | 2023-08-20 16:06 | P.CNPUL ---
History of Present Illness Consult date: 08/20/23 Requesting physician: Lala Stauffer Reason for consult: dyspnea, abnormal CXR/CT Chief complaint: Shortness of breath History of present illness: This is a morbidly obese 57-year-old female patient with a known history of atrial fibrillation anticoagulated with Eliquis, obstructive sleep apnea maintained on CPAP in the outpatient setting, obstructive pulmonary disease, former smoker, chronic diastolic congestive heart failure, cellulitis of the lower extremities, coronary artery disease with previous stent placement, hypertension, hyperlipidemia, chronic anxiety/depression. Has had frequent readmissions to the hospital for multiple medical issues. Most recent discharge on July 27, 2023. She came back to the emergency room again with complaints of increasing shortness of breath. X-ray revealed mild congestive heart failure with some mild edema in the fissures and mild interstitial edema. To marked cardiomegaly. White count 9.1. Hemoglobin 11.2. Platelets 284. Sodium 138. Potassium 4.8. Bicarb 39. BUN 23. Creatinine 0.50. Glucose 173. Troponins were negative x 3. proBNP 3020. Viral screen negative. She is seen today in consultation in the emergency department. Currently sitting up in stretcher. She is on AVAPS with settings of minimum pressures of 10 and a maximum pressures of 25. FiO2 is 85%. Tidal 300. EPAP 5. She is feeling a bit better today com pared to yesterday. She will be trialed off of the AVAPS device shortly. Has been initiated on DuoNeb inhalation, prednisone taper, antibiotics in the form of Augmentin, anticoagulated with Eliquis. She is on Lasix 40 mg IV twice daily. Total output 900 MLS thus far. Review of Systems REVIEW OF SYSTEMS: CONSTITUTIONAL: Positive for weight gain. EYES: Denies change in vision. EARS, NOSE, MOUTH, THROAT: Denies headaches, denies sore throat. CARDIOVASCULAR: Denies chest pain, palpitations or syncopal episodes. RESPIRATORY: Positive for shortness of breath, cough, congestion no hemoptysis. GASTROINTESTINAL: Denies change in appetite, denies abdominal pain GENITOURINARY: Denies hematuria, denies infections. MUSKULOSKELETAL: Positive for swelling. INTEGUMENTARY: Denies rash, denies eczema. NEUROLOGICAL: Denies recent memory loss, no recent seizure activity. PSYCHIATRIC: Denies anxiety, denies depression. HEMATOLOGIC/LYMPHATIC: Denies anemia, denies enlarged lymph nodes. Past Medical History Past Medical History: Atrial Fibrillation, Asthma, COPD, Hyperlipidemia, Hypertension, Myocardial Infarction (HI), Respiratory Disorder Additional Past Medical History / Comment(s): wears oxygen 3lnc when mobile, +RSV 06/2023 Last Myocardial Infarction Date:: 2021 History of Any Multi-Drug Resistant Organisms: None Reported Past Surgical History: Heart Catheterization With Stent, Orthopedic Surgery Additional Past Surgical History / Comment(s): metal plate right arm, oral surgery fracture jawed,hx gallstones Past Anesthesia/Blood Transfusion Reactions: No Reported Reaction Additional Past Anesthesia/Blood Transfusion Reaction / Comment(s): No blood transfusion Date of Last Stent Placement:: 2021 Past Psychological History: Anxiety, Depression Smoking Status: Former smoker Past Alcohol Use History: None Reported Past Drug Use History: None Reported - Past Family History Mother Family Medical History: Cancer Additional Family Medical History / Comment(s): uterine, breast, lymph nodes Medications and Allergies Home Medications Medication Instructions Recorded Confirmed Type Apixaban [Eliquis] 5 mg PO BID 10/26/22 08/19/23 History Atorvastatin [Lipitor] 40 mg PO HS 10/26/22 08/19/23 History Cetirizine HCl 10 mg PO DAILY 10/26/22 08/19/23 History FLUoxetine HCL [PROzac] 40 mg PO DAILY@1200 10/26/22 08/19/23 History Folic Acid 1 mg PO DAILY 10/26/22 08/19/23 History Gabapentin [Neurontin] 300 mg PO BID 10/26/22 08/19/23 History Mirtazapine [Remeron] 15 mg PO HS 10/26/22 08/19/23 History Montelukast [Singulair] 10 mg PO HS 10/26/22 08/19/23 History Dulaglutide [Trulicity] 1.5 mg SQ SA 06/21/23 08/19/23 History Ergocalciferol [Vitamin D2 (1250 1,250 mcg PO SA 06/21/23 08/19/23 History Mcg = 60062 Iu)] Ipratropium-Albuterol Nebulize 3 ml INHALATION RT-QID 06/21/23 08/19/23 History [Duoneb 0.5 mg-3 mg/3 ml Soln] Omeprazole 20 mg PO DAILY 06/21/23 08/19/23 History lisinopriL [Zestril] 5 mg PO DAILY 06/21/23 08/19/23 History Fluticasone Nasal [place] [Flonase 2 spray EA NOSTRIL DAILY ml 06/27/23 08/19/23 Rx Nasal [place]] guaiFENesin [Mucinex] 1,200 mg PO Q12HR tab 06/27/23 08/19/23 Rx Furosemide [Lasix] 40 mg PO BID@0900,1600 #60 tab 07/27/23 08/19/23 Rx HYDROcodone/APAP 10-325MG [[place] 1 tab PO TID 08/19/23 08/19/23 History 10-325] Metoprolol Tartrate [Lopressor] 100 mg PO BID 08/19/23 08/19/23 History Allergies Allergy/AdvReac Type Severity Reaction Status Date / Time ibuprofen Allergy Rash/Hives Verified 08/19/23 12:01 NSAIDS (Non-Steroidal Allergy Rash/Hives Verified 08/19/23 12:01 Anti-Inflamma tetracycline Allergy Rash/Hives Verified 08/19/23 12:01 Physical Exam Vitals: Vital Signs Temp Pulse Pulse Resp BP BP Pulse Ox 08/20/23 12:00 94 18 97/72 97 08/20/23 11:52 98 08/20/23 11:45 96 08/20/23 10:53 102 H 19 08/20/23 08:22 102 H 19 104/73 94 L 08/20/23 08:09 106 H 08/20/23 08:02 96 96 08/20/23 06:00 96 21 97/71 99 08/20/23 05:00 110 H 21 102/74 98 08/20/23 04:00 102 H 21 106/71 98 08/20/23 03:00 101 H 21 97/71 99 08/20/23 02:18 08/20/23 02:00 103 H 26 H 102/79 96 08/20/23 01:32 08/20/23 01:09 83 L 08/20/23 00:30 104 H 26 H 109/83 93 L 08/19/23 23:16 98.0 F 105 H 28 H 117/92 93 L 08/19/23 23:00 110 H 28 H 112/74 94 L 08/19/23 22:00 118 H 28 H 125/66 96 08/19/23 20:54 101 H 28 H 110/87 91 L 08/19/23 18:08 116 H 30 H 103/85 95 08/19/23 17:00 112 H 28 H 106/81 08/19/23 16:00 129 H 28 H 122/80 90 L FiO2 08/20/23 12:00 08/20/23 11:52 08/20/23 11:45 08/20/23 10:53 08/20/23 08:22 08/20/23 08:09 08/20/23 08:02 08/20/23 06:00 08/20/23 05:00 08/20/23 04:00 08/20/23 03:00 08/20/23 02:18 85 08/20/23 02:00 08/20/23 01:32 85 08/20/23 01:09 08/20/23 00:30 08/19/23 23:16 08/19/23 23:00 08/19/23 22:00 08/19/23 20:54 08/19/23 18:08 08/19/23 17:00 08/19/23 16:00 Intake and Output 08/20/23 08/20/23 08/20/23 06:59 14:59 22:59 Intake Total 240 Output Total 900 Balance -660 Intake: Oral 240 Output: Urine 900 GENERAL EXAM: Alert, morbidly obese 57-year-old female, on AVAPS setting currently, fairly comfortable in no apparent distress. HEAD: Normocephalic. EYES: Normal reaction of pupils, equal size. NOSE: Clear with pink turbinates. THROAT: No erythema or exudates. Crowding of the posterior pharynx NECK: Short. No masses, no JVD. CHEST: No chest wall deformity. LUNGS: Equal air entry with faint crackles in the posterior bases. CVS: S1 and S2 normal with no audible murmur, regular rhythm. ABDOMEN: Obesity, unable to appreciate any hepatosplenomegaly, normal bowel sounds, no guarding or rigidity. SPINE: No scoliosis or deformity SKIN: No rashes CENTRAL NERVOUS SYSTEM: No focal deficits, tone is normal in all 4 extremities. EXTREMITIES: There is 1 plus peripheral edema. No clubbing, no cyanosis. Peripheral pulses are intact. Results - Laboratory Findings CBC and BMP: 08/19/23 13:04 08/20/23 14:17 PT/INR, D-dimer PT 11.4 sec (10.0-12.5) 08/19/23 13:04 INR 1.1 (<1.2) 08/19/23 13:04 D-Dimer 0.56 mg/L FEU (<0.60) 08/19/23 13:04 Abnormal lab findings: Abnormal Labs 08/19/23 08/19/23 08/20/23 13:04 13:04 14:17 Hgb 11.2 L MCHC 30.5 L RDW 18.7 H Neutrophils # 7.9 H Lymphocytes # 0.6 L Carbon Dioxide 39 H BUN 23 H Creatinine 0.49 L 0.50 L Glucose 160 H 173 H - Diagnostic Findings Chest x-ray: image reviewed Assessment and Plan Assessment: Acute on chronic hypoxemic respiratory failure secondary to an acute exacerbation of diastolic congestive heart failure with mild increasing interstitial edema bilaterally in addition to increased lower extremity edema bilaterally. Acute on chronic hypercapnic respiratory failure Severe obstructive sleep apnea with an AHI of 41 and titrated to a CPAP pressure of 11 cm of water Childhood asthma and the patient reports that she was intubated in the past on multiple occasions as a child in [facility]. Morbid obesity with a BMI of 50.8 kg/m Prior history of significant tobacco use Multiple hospitalizations most recent of which was attributed to the right lower extremity cellulitis, treated with Keflex, most recent discharge July 27, 2023 MRSA in the sputum cultures on 07/03/2023 History of atrial fibrillation. Rate is controlled and the patient is on long- term anticoagulation with Eliquis History of hyperlipidemia History of hypertension History of coronary artery disease, with previous PCI/stent placement History of myocardial infarction Chronic anxiety/depression Poor overall functional performance based on the above-mentioned multiple comorbidities Plan: The patient was seen and evaluated Chest x-ray, labs and medications reviewed Trial the patient off the AVAPS Have her bring in her own home CPAP Continue with IV diuretics Anticoagulated with Eliquis Continued on Augmentin Continue bronchodilators and steroids Treat the FiO2 as tolerated We will continue to follow and make further recommendations based on her clinical status I have personally seen and examined the patient, performed the documentation and the assessment and plan as written. Number of minutes spent on the visit: 20.
[2023-08-21] MEDS: ACETAMINOPHEN TAB 325 MG TAB PO PRN (04:47)
[2023-08-21] MEDS: SPIRONOLACTONE 25 MG TAB PO SCH (09:52)
[2023-08-21 10:14] LABS: Potassium 4.3 mmol/L (3.5-5.1)
[2023-08-21 10:15] LABS: African American GFR (CKD) >90 (>60 ml/min/1.73 sqM); Anion Gap 8 mmol/L; Blood Urea Nitrogen 25 mg/dL (7-17); Calcium 8.9 mg/dL (8.4-10.2); Carbon Dioxide 33 mmol/L (22-30); Chloride 97 mmol/L (98-107); Glucose 94 mg/dL (74-99); Magnesium 1.9 mg/dL (1.6-2.3); Non-African American GFR(CKD) >90 (>60 ml/min/1.73 sqM); Sodium 138 mmol/L (137-145)
[2023-08-21] MEDS: DAPAGLIFLOZIN PROPANEDIOL 10 MG TABLET PO SCH (10:22)
--- NOTE | 2023-08-21 10:23 | P.PN ---
Subjective HISTORY OF PRESENT ILLNESS: This is a 57-year-old female with a past medical history significant for coronary artery disease, paroxysmal atrial fibrillation, hypertension, hyperlipidemia, COPD, and nicotine dependence. Patient follows in the office with Dr. Owens. Patient is admitted to the hospital secondary to acute CHF exacerbation. Patient examined this morning in the emergency room. Patient continues to report shortness of breath. She remains on IV diuretics. She denies any chest pain or pressure. Vital signs are stable. Echocardiogram completed in May 2023 revealed ejection fraction 5055%, trace MR. PHYSICAL EXAM: VITAL SIGNS: Reviewed. GENERAL: Well-developed in no acute distress. NECK: Supple. No JVD or thyromegaly LUNGS: Respirations even and unlabored. Lungs with expiratory wheezing noted HEART: Irregular rate and rhythm. S1 and S2 heard. EXTREMITIES: Normal range of motion. No clubbing or cyanosis. Peripheral pulses intact. Bilateral lower extremity edema noted ASSESSMENT: Shortness of breath Acute on chronic heart failure with preserved EF Persistent atrial fibrillation Acute on chronic hypoxic respiratory failure, patient on oxygen outpatient Coronary artery disease with previous PCI, 2021 at [facility], further details unknown Hypertension Hyperlipidemia COPD Former nicotine dependence, patient states she recently quit smoking Morbid obesity: BMI 50.8 Obstructive sleep apnea PLAN: Continue current cardiac medications Continue IV Lasix. Change dosing to 0900 and 1600 as patient has refused 2100 lasix yesterday Daily weights, accurate intake and output, and monitoring of kidney function Add Farxiga 10 mg daily No need to repeat echocardiogram as this was performed in 05/2023 Obtain records from [facility] of cardiac catheterization performed in 2021 Further recommendations pending patient course Nurse practitioner note has been reviewed by physician. Signing provider agrees with the documented findings, assessment, and plan of care documented by LASER MACHINE OPERATOR as a scribe. Objective - Vital Signs Vital signs: Vital Signs Temp 98 F 08/21/23 08:00 Pulse 96 08/21/23 09:37 Resp 20 08/21/23 08:00 BP 116/84 08/21/23 08:00 Pulse Ox 97 08/21/23 08:00 FiO2 35 08/21/23 09:23 Intake & Output 08/20/23 08/21/23 08/21/23 18:59 06:59 18:59 Intake Total 240 Output Total 900 2000 Balance -660 -1999 Intake: Oral 240 Output: Urine 900 2000 - Labs CBC & Chem 7: 08/19/23 13:04 08/21/23 09:03 Labs: Abnormal Lab Results - Last 24 Hours (Table) 08/20/23 Range/Units 14:17 Carbon Dioxide 39 H (22-30) mmol/L BUN 23 H (7-17) mg/dL Creatinine 0.50 L (0.52-1.04) mg/dL Glucose 173 H (74-99) mg/dL Microbiology - Last 24 Hours (Table) 08/19/23 13:00 Blood Culture - Preliminary Blood 08/19/23 13:15 Blood Culture - Preliminary Blood
--- NOTE | 2023-08-21 14:41 | P.PN ---
Subjective Progress Note Date: 08/21/23 This is a morbidly obese 57-year-old female patient with a known history of atrial fibrillation anticoagulated with Eliquis, obstructive sleep apnea maintained on CPAP in the outpatient setting, obstructive pulmonary disease, former smoker, chronic diastolic congestive heart failure, cellulitis of the low er extremities, coronary artery disease with previous stent placement, hypertension, hyperlipidemia, chronic anxiety/depression. Has had frequent readmissions to the hospital for multiple medical issues. Most recent discharge on July 27, 2023. She came back to the emergency room again with complaints of increasing shortness of breath. X-ray revealed mild congestive heart failure with some mild edema in the fissures and mild interstitial edema. To marked cardiomegaly. White count 9.1. Hemoglobin 11.2. Platelets 284. Sodium 138. Potassium 4.8. Bicarb 39. BUN 23. Creatinine 0.50. Glucose 173. Troponins were negative x 3. proBNP 3020. Viral screen negative. She is seen today in consultation in the emergency department. Currently sitting up in stretcher. She is on AVAPS with settings of minimum pressures of 10 and a maximum pressures of 25. FiO2 is 85%. Tidal 300. EPAP 5. She is feeling a bit better today compared to yesterday. She will be trialed off of the AVAPS device shortly. Has been initiated on DuoNeb inhalation, prednisone taper, antibiotics in the form of Augmentin, anticoagulated with Eliquis. She is on Lasix 40 mg IV twice daily. Total output 900 MLS thus far. The patient is seen today August 21, 2023 in follow-up in the emergency department. She is currently awake and alert in no acute distress. Sitting up on the stretcher. She did utilize the AVAPS device last night. She is currently maintaining good O2 saturations in the 90s on 4 L/min per nasal cannula. She is afebrile. Hemodynamically stable. Blood cultures revealed no growth to date. Sodium 138. Potassium 4.3. Bicarb 33. BUN 25. Creatinine 0.48. Glucose 94. She is continued on DuoNeb ventilations, Singulair, prednisone taper. Empiric antibiotics in the form of Augmentin. She is anticoagulated with Eliquis. She remains on IV diuretics. Currently in a -1.5 L balance. Objective - Vital Signs Vital signs: Vital Signs Temp 98 F 08/21/23 08:00 Pulse 108 H 08/21/23 12:29 Resp 18 08/21/23 14:00 BP 111/84 08/21/23 14:00 Pulse Ox 95 08/21/23 14:00 FiO2 35 08/21/23 09:23 Intake & Output 08/20/23 08/21/23 08/21/23 18:59 06:59 18:59 Intake Total 240 470 Output Total 900 2000 Balance -660 -1530 Intake: Oral 240 470 Output: Urine 900 1999 - Exam GENERAL EXAM: Alert, morbidly obese 57-year-old female, on 4 L/min per nasal cannula, fairly comfortable in no apparent distress. HEAD: Normocephalic. EYES: Normal reaction of pupils, equal size. NOSE: Clear with pink turbinates. THROAT: No erythema or exudates. Crowding of the posterior pharynx NECK: Short. No masses, no JVD. CHEST: No chest wall deformity. LUNGS: Equal air entry with faint crackles in the posterior bases. CVS: S1 and S2 normal with no audible murmur, regular rhythm. ABDOMEN: Obesity, unable to appreciate any hepatosplenomegaly, normal bowel sounds, no guarding or rigidity. SPINE: No scoliosis or deformity SKIN: No rashes CENTRAL NERVOUS SYSTEM: No focal deficits, tone is normal in all 4 extremities. EXTREMITIES: There is 1 plus peripheral edema. No clubbing, no cyanosis. Peripheral pulses are intact. - Labs CBC & Chem 7: 08/19/23 13:04 08/21/23 09:03 Labs: Abnormal Lab Results - Last 24 Hours (Table) 08/20/23 08/21/23 Range/Units 14:17 09:03 Chloride 97 L (98-107) mmol/L Carbon Dioxide 39 H 33 H (22-30) mmol/L BUN 23 H 25 H (7-17) mg/dL Creatinine 0.50 L 0.48 L (0.52-1.04) mg/dL Glucose 173 H (74-99) mg/dL Microbiology - Last 24 Hours (Table) 08/19/23 13:00 Blood Culture - Preliminary Blood 08/19/23 13:15 Blood Culture - Preliminary Blood Assessment and Plan Assessment: Acute on chronic hypoxemic respiratory failure secondary to an acute exacerbation of diastolic congestive heart failure with mild increasing interst itial edema bilaterally in addition to increased lower extremity edema bilaterally. Responding well to IV diuretics Acute on chronic hypercapnic respiratory failure Severe obstructive sleep apnea with an AHI of 41 and titrated to a CPAP pressure of 11 cm of water Childhood asthma and the patient reports that she was intubated in the past on multiple occasions as a child in [facility] Morbid obesity with a BMI of 50.8 kg/m Prior history of significant tobacco use Multiple hospitalizations most recent of which was attributed to the right lower extremity cellulitis, treated with Keflex, most recent discharge July 27, 2023 MRSA in the sputum cultures on 07/03/2023 History of atrial fibrillation. Rate is controlled and the patient is on long- term anticoagulation with Eliquis History of hyperlipidemia History of hypertension History of coronary artery disease, with previous PCI/stent placement History of myocardial infarction Chronic anxiety/depression Poor overall functional performance based on the above-mentioned multiple comorbidities Plan: The patient was seen and evaluated Labs and medications reviewed Currently stable on 4 L nasal cannula Titrate the FiO2 as tolerated Remains on IV diuretics Home once cleared by cardiology Patient is at risk for frequent readmissions, this is her fourth this year thus far I have personally seen and examined the patient, performed the documentation and the assessment and plan as written. Number of minutes spent on the visit: 10.
[2023-08-21] MEDS: FUROSEMIDE 10 MG/ML 4 ML VIAL IV SCH (17:16)
--- NOTE | 2023-08-21 17:55 | P.PN ---
Subjective Progress Note Date: 08/21/23 Hospital course: Patient is a 57-year-old female with a past medical history of CAD with stenting, chronic diastolic heart failure, hypertension, hyperlipidemia, chronic atrial fibrillation on anticoagulation with Eliquis, type II non-insulin- dependent diabetes mellitus, chronic venous stasis dermatitis with chronic bilateral lower extremity edema, severe obstructive sleep apnea CPAP dependent, and chronic hypoxic respiratory failure secondary to advanced COPD home oxygen dependent 3 L. She presented to the emergency department with a chief complaint of increasing shortness of breath, cough and increasing bilateral lower extremity swelling and pain over the past 3 days. She reports severe orthopnea and has to sleep sitting up. She also states that her legs are jist extremely sore and swollen and reports that she is certain she has bilateral lower extremity cellulitis. Patient admits that she has not been wrapping or elevati ng her legs as previously instructed because they are too sore. She denies headache, lightheadeness, dizziness, chest pain, palpitations, nausea, vomiting, or experiencing any focal numbness or tingling. She underwent evaluation in the emergency department. Vital signs upon arrival show blood pressure 109/70, heart rate 105, respiratory rate 32, temp 99.7 F, and SpO2 of 91% on 3 L.. EKG was completed showing atrial fibrillation at 100 bpm. Chest x-ray completed showing moderate to marked cardiomegaly with mild edema in the fissures and possibly mild interstitial edema, per radiology report similar to what was seen on prior study 07/26/2023. Labs completed and reviewed. CBC showing normocytic anemia with hemoglobin stable and at baseline at 11.2. Coagulation profile normal findings. D-dimer was negative at 0.56. BMP unremarkable. Lactic acid normal findings at 1.6. Liver profile unremarkable. Troponin less than 0.012. ProBNP elevated at 3020. Cepheid 4 Plex viral panel pending. Patient was admitted under our services with consultation to cardiology and pulmonology. Physical exam: Patient seen and fully evaluated at bedside this morning. She is on baseline 4 L O2 via nasal cannula with SpO2 of 95%. Respirations even and unlabored. Patient continues to report shortness of breath and pain in bilateral lower extremities secondary to edema. Per documentation in chart, patient declined to take nighttime Lasix as ordered. Vital signs reviewed and stable. General: Nontoxic, no distress and appears stated age. Morbidly obese. Derm: Skin warm and dry, normal coloration for ethnicity. Head: Atraumatic, normocephalic and symmetric. Eyes: EOMs intact, no lid lag, and anicteric sclera Mouth: no lip lesions, mucus membranes moist Cardiovascular: regular rate and rhythm with normal S1S2, no murmur, positive posterior tibial pulses bilaterally, and cap refill < 2 seconds. Lungs: Respirations even, regular, and unlabored. Lungs diminished, no rhonchi, no rales, no wheezing, and no accessory muscle usage. Abdominal: soft, nontender to palpation, no guarding, no appreciable organomegaly Ext: ROM intact. No gross muscle atrophy, 2+ pitting bilateral lower extremity edema, no contractures. Neuro: Speech clear, face symmetrical and CN II-XII grossly intact with no noted focal neuro deficits Psych: Alert and oriented to person, place, time, and situation. Appropriate and pleasant affect. Assessment and Plan of Care: Acute on chronic hypoxic respiratory failure Acute on chronic diastolic heart failure exacerbation COPD with chronic oxygen dependency, baseline 3 L at all times Severe obstructive sleep apnea Chronic atrial fibrillation on anticoagulation with Eliquis CAD with previous stent Hypertension Hyperlipidemia -Continue oxygen supplementation, patient's baseline oxygen needs 3 L at all times. May titrate as needed to maintain SpO2 equal to or greater than 90%. -Continue CPAP nightly and while napping. -Pulmonology consulted, appreciate recommendations -Cardiology following and started patient on Aldactone 25 mg daily and changing times of Lasix as patient has been declining nighttime Lasix dose. -Continue scheduled DuoNebs 4 times daily and as needed for shortness of breath and/or wheezing, Flonase 2 sprays each nostril daily, and Singulair 10 mg nightly. -Lasix 40 mg IV twice daily -Order placed for strict I's and O's and daily weights -Patient placed empirically on Augmentin 875/125 mg tablets every 12 hours x 5 days. -Steroids with prednisone 40 mg daily x 5 days. -Telemetry monitoring Bilateral lower extremity edema with venous stasis dermatitis -Symptomatic care and pain management. -Order placed for Haresh wrap to bilateral lower extremities and encourage elevation of lower extremities when not in use -Fall precautions -Recommend outpatient follow-up with vascular surgery for further evaluation of chronic peripheral vascular deficiency. Type II prx-mzumxlr-obmniwykr diabetes mellitus with hemoglobin A1c of 7%. Hold Trulicity and place patient on glycemic protocol with NovoLog sliding scale. Morbid obesity with BMI of 50.8 kg/m Recommend structured outpatient weight management program. Data and imaging reviewed: Morning labs reviewed and stable. BMP showing mild hypochloremia with chloride of 97 and elevated but improved bicarb of 33 from previous 39. Potassium 4.3 magnesium 1.9. Procalcitonin was negative at 0.03. Vital signs reviewed. Blood pressure 106/82, heart rate 100, respiratory rate 18, and SpO2 of 95% on 4 L. CODE STATUS: Full code DVT prophylaxis: Eliquis Anticipated discharge date: Anticipate discharge within the next [address]: Home with home care, recommend palliative care referral and discussed this with case management Patient was seen independently by Nurse Practitioner. This document was prepared using [employer] dictation software. Please allow for errors in boring machine operator double end while rare they do occur . Objective - Vital Signs Vital signs: Vital Signs Temp 98.0 F 08/19/23 23:16 Pulse 93 08/21/23 06:36 Resp 18 08/21/23 06:36 BP 126/83 08/21/23 06:36 Pulse Ox 97 08/21/23 06:36 FiO2 35 08/20/23 23:19 Intake & Output 08/20/23 08/21/23 08/21/23 18:59 06:59 18:59 Intake Total 240 Output Total 900 Balance -660 Intake: Oral 240 Output: Urine 900 - Labs CBC & Chem 7: 08/19/23 13:04 08/21/23 09:03 Labs: Abnormal Lab Results - Last 24 Hours (Table) 08/20/23 Range/Units 14:17 Carbon Dioxide 39 H (22-30) mmol/L BUN 23 H (7-17) mg/dL Creatinine 0.50 L (0.52-1.04) mg/dL Glucose 173 H (74-99) mg/dL Microbiology - Last 24 Hours (Table) 08/19/23 13:00 Blood Culture - Preliminary Blood 08/19/23 13:15 Blood Culture - Preliminary Blood
[2023-08-21] MEDS: DILTIAZEM 125 MG in SODIUM CHLORIDE 0.9% 100 ML IV SCH (19:37)
[2023-08-21] MEDS: DILTIAZEM DRIP BOLUS FROM BAG 1 MG SOLN IV ONE (20:16)
[2023-08-22 09:05] VITALS: TEMP 97.8
[2023-08-22 09:53] LABS: Anisocytosis Slight; HCT 40.5 % (34.0-46.0); HGB 11.8 gm/dL (11.4-16.0); Hypochromasia Marked; MCH 26.7 pg (25.0-35.0); MCHC 29.2 g/dL (31.0-37.0); MCV 91.2 fL (80.0-100.0); Mean Platelet Volume 7.9; Platelet Count 330 k/uL (150-450); RBC 4.44 m/uL (3.80-5.40); RDW 18.5 % (11.5-15.5); WBC 10.6 k/uL (3.8-10.6)
[2023-08-22 10:13] LABS: ALT 18 U/L (4-34); AST 21 U/L (14-36); African American GFR (CKD) >90 (>60 ml/min/1.73 sqM); Albumin 3.7 g/dL (3.5-5.0); Alkaline Phosphatase 81 U/L (38-126); Anion Gap 7 mmol/L; Blood Urea Nitrogen 24 mg/dL (7-17); Calcium 9.2 mg/dL (8.4-10.2); Carbon Dioxide 38 mmol/L (22-30); Chloride 96 mmol/L (98-107); Glucose 133 mg/dL (74-99); Magnesium 1.8 mg/dL (1.6-2.3); Non-African American GFR(CKD) >90 (>60 ml/min/1.73 sqM); Sodium 141 mmol/L (137-145); Total Bilirubin 1.1 mg/dL (0.2-1.3); Total Protein 6.3 g/dL (6.3-8.2)
--- NOTE | 2023-08-22 11:14 | P.DS ---
Providers Date of admission: 08/21/23 08:22 Expected date of discharge: 08/22/23 Attending physician: Lala Stauffer MD Consults: 08/19/23 16:04 Consult Physician Routine Consulting Provider: [facility] Consult Reason/Comments: HFpEF Do you want consulting provider notified?: Yes 08/19/23 16:31 Consult Physician Routine Consulting Provider: Lui Batista Consult Reason/Comments: acute on chronic respiratory failure, COPD home O2 dependent Do you want consulting provider notified?: Yes Primary care physician: Sugey Chester MD Hospital Course: Discharge Diagnosis: Acute on chronic hypoxic respiratory failure Acute on chronic diastolic heart failure exacerbation COPD with chronic oxygen dependency, baseline 3-4 L at all times Severe obstructive sleep apnea. Continue CPAP nightly and while napping. Atrial fibrillation with RVR in pt with Chronic atrial fibrillation on anticoagulation with Eliquis CAD with previous stent Hypertension Hyperlipidemia Bilateral lower extremity edema with venous stasis dermatitis. Recommend outpatient follow-up with vascular surgery for further evaluation of chronic peripheral vascular deficiency. Also strongly recommended to patient to keep lower extremities wrapped with Haresh dressing and elevated when not in use. Type II diy-psffvdw-tfqisqguh diabetes mellitus with hemoglobin A1c of 7%. Continue Trulicity. Morbid obesity with BMI of 50.8 kg/m Recommend structured outpatient weight management program. Hospital Course: Patient is a 57-year-old female with a past medical history of CAD with stenting, chronic diastolic heart failure, hypertension, hyperlipidemia, chronic atrial fibrillation on anticoagulation with Eliquis, type II qnv-idfnklk-rgvrzutzx diabetes mellitus, chronic venous stasis dermatitis with chronic bilateral lower extremity edema, severe obstructive sleep apnea CPAP dependent, and chronic hypoxic respiratory failure secondary to advanced COPD home oxygen dependent 3 L. She presented to the emergency department with a chief complaint of increasing shortness of breath, cough and increasing bilateral lower extremity swelling and pain over the past 3 days. She reports severe orthopnea and has to sleep sitting up. She also states that her legs are jist extremely sore and swollen and reports that she is certain she has bilateral lower extremity cellulitis. Patient admits that she has not been wrapping or elevating her legs as previously instructed because they are too sore. She denies headache, lightheadeness, dizziness, chest pain, palpitations, nausea, vomiting, or experiencing any focal numbness or tingling. She underwent evaluation in the emergency department. Vital signs upon arrival show blood pressure 109/70, heart rate 105, respiratory rate 32, temp 99.7 F, and SpO2 of 91% on 3 L.. EKG was completed showing atrial fibrillation at 100 bpm. Chest x-ray completed showing moderate to marked cardiomegaly with mild edema in the fissures and possibly mild interstitial edema, per radiology report similar to what was seen on prior study 07/26/2023. Labs completed and reviewed. CBC showing normocytic anemia with hemoglobin stable and at baseline at 11.2. Coagulation profile normal findings. D-dimer was negative at 0.56. BMP unremarkable. Lactic acid normal findings at 1.6. Liver profile unremarkable. Troponin less than 0.012. ProBNP elevated at 3020. Cepheid 4 Plex viral panel pending. Patient was admitted under our services with consultation to cardiology and pulmonology. She was started on IV Lasix and placed on Aldactone 25 mg daily. On the evening of 08/21/2023 patient went into atrial fibrillation with RVR requiring a Cardizem bolus followed by Cardizem infusion and transferred to 3 S. Patient maintaining controlled ventricular rate at 80 to 100 bpm. Cardiology discontinued Cardizem infusion. Patient resumed daily medication regimen with metoprolol 100 mg twice daily for rate control and cleared from cardiology standpoint for discharge. Patient remains on baseline 3 to 4 L of oxygen, her respirations were unlabored and at baseline. She was cleared from pulmonology perspective for discharge. Procalcitonin was negative at 0.03. No need for antibiotics. Patient is medically stable for discharge at this time. She was discharged home on prednisone taper and started on Aldactone 25 mg daily. Patient to follow-up outpatient with PCP in 1 to 2 days, hot punch press operator in 2 weeks, and hire car driver in 1 week. Physical exam: Vital signs reviewed and stable. General: Nontoxic, no distress and appears stated age. Morbidly obese. Derm: Skin warm and dry, normal coloration for ethnicity. Head: Atraumatic, normocephalic and symmetric. Eyes: EOMs intact, no lid lag, and anicteric sclera Mouth: no lip lesions, mucus membranes moist Cardiovascular: regular rate and rhythm with normal S1S2, no murmur, positive posterior tibial pulses bilaterally, and cap refill < 2 seconds. Lungs: Respirations even, regular, and unlabored. Lungs diminished, no rhonchi, no rales, no wheezing, and no accessory muscle usage. Abdominal: soft, nontender to palpation, no guarding, no appreciable organomegaly Ext: ROM intact. No gross muscle atrophy, 2+ pitting bilateral lower extremity edema, no contractures. Neuro: Speech clear, face symmetrical and CN II-XII grossly intact with no noted focal neuro deficits Psych: Alert and oriented to person, place, time, and situation. Appropriate and pleasant affect. A total of 39 minutes of time were spent preparing this complex discharge summary. Pt was discharged on 08/22/2023 at 11:12 AM. Patient was seen independently by Nurse Practitioner. This document was prepared using [employer] dictation software. Please allow for errors in private detective while rare they do occur. Patient Condition at Discharge: Stable Plan - Discharge Summary Discharge Rx Participant: Yes New Discharge Prescriptions: New Spironolactone [Aldactone] 25 mg PO DAILY 90 Days #90 tab predniSONE See Taper PO DIRECTED 16 Days #40 tab Continue Cetirizine HCl 10 mg PO DAILY Apixaban [Eliquis] 5 mg PO BID Atorvastatin [Lipitor] 40 mg PO HS Dulaglutide [Trulicity] 1.5 mg SQ SA Ergocalciferol [Vitamin D2 (1250 Mcg = 15440 Iu)] 1,250 mcg PO SA lisinopriL [Zestril] 5 mg PO DAILY Omeprazole 20 mg PO DAILY Furosemide [Lasix] 40 mg PO BID@0900,1600 #60 tab HYDROcodone/APAP 10-325MG [Leonard 10-325] 1 tab PO TID Folic Acid 1 mg PO DAILY FLUoxetine HCL [PROzac] 40 mg PO DAILY@1200 Gabapentin [Neurontin] 300 mg PO BID Mirtazapine [Remeron] 15 mg PO HS Montelukast [Singulair] 10 mg PO HS Ipratropium-Albuterol Nebulize [Duoneb 0.5 mg-3 mg/3 ml Soln] 3 ml INHALATION RT-QID Fluticasone Nasal Lamy [Flonase Nasal Lamy] 2 spray EA NOSTRIL DAILY ml guaiFENesin [Mucinex] 1,200 mg PO Q12HR tab Metoprolol Tartrate [Lopressor] 100 mg PO BID Discharge Medication List Apixaban [Eliquis] 5 mg PO BID 10/26/22 [History] Atorvastatin [Lipitor] 40 mg PO HS 10/26/22 [History] Cetirizine HCl 10 mg PO DAILY 10/26/22 [History] FLUoxetine HCL [PROzac] 40 mg PO DAILY@1200 10/26/22 [History] Folic Acid 1 mg PO DAILY 10/26/22 [History] Gabapentin [Neurontin] 300 mg PO BID 10/26/22 [History] Mirtazapine [Remeron] 15 mg PO HS 10/26/22 [History] Montelukast [Singulair] 10 mg PO HS 10/26/22 [History] Dulaglutide [Trulicity] 1.5 mg SQ SA 06/21/23 [History] Ergocalciferol [Vitamin D2 (1250 Mcg = 45066 Iu)] 1,250 mcg PO SA 06/21/23 [History] Ipratropium-Albuterol Nebulize [Duoneb 0.5 mg-3 mg/3 ml Soln] 3 ml INHALATION RT-QID 06/21/23 [History] Omeprazole 20 mg PO DAILY 06/21/23 [History] lisinopriL [Zestril] 5 mg PO DAILY 06/21/23 [History] Fluticasone Nasal Lamy [Flonase Nasal Lamy] 2 spray EA NOSTRIL DAILY ml 06/27/23 [Rx] guaiFENesin [Mucinex] 1,200 mg PO Q12HR tab 06/27/23 [Rx] Furosemide [Lasix] 40 mg PO BID@0900,1600 #60 tab 07/27/23 [Rx] HYDROcodone/APAP 10-325MG [Leonard 10-325] 1 tab PO TID 08/19/23 [History] Metoprolol Tartrate [Lopressor] 100 mg PO BID 08/19/23 [History] Spironolactone [Aldactone] 25 mg PO DAILY 90 Days #90 tab 08/21/23 [Rx] predniSONE See Taper PO DIRECTED 16 Days #40 tab 08/21/23 [Rx] Follow up Appointment(s)/Referral(s): Ibeth Watson MD [STAFF PHYSICIAN] - 1 Week Nina Gregorio MD [STAFF PHYSICIAN] - 09/10/23 1:30 pm (in [place] ) Yvan Morris DO [STAFF PHYSICIAN] - 1 Week (vascular surgeon you requested information on) Sugey Chester MD [Primary Care Provider] - 1-2 days Patient Instructions/Handouts: COPD (Chronic Obstructive Pulmonary Disease) (DC), Chronic Lung Disease and Infection Prevention (DC), Venous Insufficiency (DC) Activity/Diet/Wound Care/Special Instructions: Activity: As tolerated. Take breaks as needed. Diet: Heart healthy and carb consistent diet. Avoid salts, or foods with hidden salts such as canned or boxed foods and frozen dinners. Extra salt makes your heart work harder and traps the fluid in your body for longer. Special Instructions: Weigh yourself every morning after you urinate. If you gain 3 pounds overnight or more than 5 pounds in one week, call your primary physician and hot punch press operator for guidance on your medications or they may want to see you in their office prior to making changes to your medications or dose. Keep a daily log of your weights and be sure to bring with you at follow up visits with your PCP and hot punch press operator. Take all of your medications as directed, especially your water pills. NEVER skip a dose. And remember to keep all of your doctor's appointments and follow- up as needed. Elevate your legs when you are not up moving around to help with circulation and prevent swelling. Haresh Wraps or Compression stockings to bilateral lower extremities are also a great way to improve lower extremity circulation and prevent/improve lower extremity edema. Call your primary care provider and hot punch press operator if you notice any extra swelling in your legs, ankles, feet or abdomen, if you have a new dry cough, if your shortness of breath worsens with activity or at rest, or if you feel more fatigued. Thank you for allowing us to participate in your care, it was truly a pleasure having you for our patient!!! Discharge Disposition: HOME WITH HOME HEALTH SERVICES
--- NOTE | 2023-08-22 11:30 | P.PN ---
Subjective Progress Note Date: 08/22/23 HISTORY OF PRESENT ILLNESS: This is a 57-year-old female with a past medical history significant for lyn nary artery disease, paroxysmal atrial fibrillation, hypertension, hyperlipidemia, COPD, and nicotine dependence. Patient follows in the office with Dr. Owens. Patient is admitted to the hospital secondary to acute CHF exacerbation. Patient examined this morning in the emergency room. Patient co ntinues to report shortness of breath. She remains on IV diuretics. She denies any chest pain or pressure. Vital signs are stable. Echocardiogram completed in May 2023 revealed ejection fraction 5055%, trace MR. 08/21 Yesterday, atrial fibrillation went into RVR and patient was transferred to the cardiac stepdown unit started on Cardizem drip at 5. She is currently in atrial fibrillation running in the 80s to 100s. Blood pressure 132/78. Pulse ox 93% on 4 L nasal cannula. Repeat blood work reveals hemoglobin 11.8, WBC 10.6. Potassium 4.0, BUN 24 creatinine 0.59. PHYSICAL EXAM: VITAL SIGNS: Reviewed. GENERAL: Well-developed in no acute distress. NECK: Supple. No JVD or thyromegaly LUNGS: Respirations even and unlabored. Lungs with expiratory wheezing noted HEART: Irregular rate and rhythm. S1 and S2 heard. EXTREMITIES: No clubbing or cyanosis. Peripheral pulses intact. Bilateral lower extremity edema noted ASSESSMENT: Shortness of breath Acute on chronic heart failure with preserved EF Persistent atrial fibrillation Acute on chronic hypoxic respiratory failure, patient on oxygen outpatient Coronary artery disease with previous PCI, 2021 at [facility], further details unknown Hypertension Hyperlipidemia COPD Former nicotine dependence, patient states she recently quit smoking Morbid obesity: BMI 50.8 Obstructive sleep apnea PLAN: Continue current cardiac medications Discontinue Cardizem drip Patient is cleared for discharge from cardiology and may follow-up with Dr. Bart Owens in 2 to 3 weeks. Nurse practitioner note has been reviewed by physician. Signing provider agrees with the documented findings, assessment, and plan of care documented by CUTTING TORCH OPERATOR as a scribe. Objective - Vital Signs Vital signs: Vital Signs Temp 97.8 F 08/22/23 08:38 Pulse 76 08/22/23 08:38 Resp 21 08/22/23 08:54 BP 132/78 08/22/23 08:38 Pulse Ox 93 L 08/22/23 08:38 FiO2 35 08/21/23 19:40 Intake & Output 08/21/23 08/22/23 08/22/23 18:59 06:59 18:59 Intake Total 470 660 Output Total 1999 500 1100 Balance -3302 -500 -271 Weight 130.9 kg Intake: Oral 470 660 Output: Urine 1999 500 1100 Other: Voiding Method Toilet Toilet # Voids 1 - Labs CBC & Chem 7: 08/22/23 09:36 08/22/23 09:36 Labs: Abnormal Lab Results - Last 24 Hours (Table) 08/22/23 08/22/23 Range/Units 09:36 09:36 MCHC 29.2 L (31.0-37.0) g/dL RDW 18.5 H (11.5-15.5) % Chloride 96 L (98-107) mmol/L Carbon Dioxide 38 H (22-30) mmol/L BUN 24 H (7-17) mg/dL Glucose 133 H (74-99) mg/dL Microbiology - Last 24 Hours (Table) 08/19/23 13:00 Blood Culture - Preliminary Blood 08/19/23 13:15 Blood Culture - Preliminary Blood
[2023-08-22 12:11] VITALS: BMI 51.1
[2023-08-22 12:47] VITALS: BP 140/82; PULSE 106; RESP 20
--- NOTE | 2023-08-22 14:00 | P.PN ---
Subjective Progress Note Date: 08/22/23 Principal diagnosis: Acute on chronic hypoxic respiratory failure secondary to acute exacerbation of diastolic congestive heart failure and underlying obstructive sleep apnea syndr ome. This is a morbidly obese 57-year-old female patient with a known history of atrial fibrillation anticoagulated with Eliquis, obstructive sleep apnea maintained on CPAP in the outpatient setting, obstructive pulmonary disease, former smoker, chronic diastolic congestive heart failure, cellulitis of the lower extremities, coronary artery disease with previous stent placement, hypertension, hyperlipidemia, chronic anxiety/depression. Has had frequent readmissions to the hospital for multiple medical issues. Most recent discharge on July 27, 2023. She came back to the emergency room again with complaints of increasing shortness of breath. X-ray revealed mild congestive heart failure with some mild edema in the fissures and mild interstitial edema. To marked cardiomegaly. White count 9.1. Hemoglobin 11.2. Platelets 284. Sodium 138. Potassium 4.8. Bicarb 39. BUN 23. Creatinine 0.50. Glucose 173. Troponins were negative x 3. proBNP 3020. Viral screen negative. She is seen today in consultation in the emergency department. Currently sitting up in stretcher. She is on AVAPS with settings of minimum pressures of 10 and a maximum pressures of 25. FiO2 is 85%. Tidal 300. EPAP 5. She is feeling a bit better today compared to yesterday. She will be trialed off of the AVAPS device shortly. Has been initiated on DuoNeb inhalation, prednisone taper, antibiotics in the form of Augmentin, anticoagulated with Eliquis. She is on Lasix 40 mg IV twice daily. Total output 900 MLS thus far. The patient is seen today August 21, 2023 in follow-up in the emergency depa rtment. She is currently awake and alert in no acute distress. Sitting up on the stretcher. She did utilize the AVAPS device last night. She is currently maintaining good O2 saturations in the 90s on 4 L/min per nasal cannula. She is afebrile. Hemodynamically stable. Blood cultures revealed no growth to date. Sodium 138. Potassium 4.3. Bicarb 33. BUN 25. Creatinine 0.48. Glucose 94. She is continued on DuoNeb ventilations, Singulair, prednisone taper. Empiric antibiotics in the form of Augmentin. She is anticoagulated with Eliquis. She remains on IV diuretics. Currently in a -1.5 L balance. Patient was reevaluated today on 08/22/2023, feeling better, breathing easier, patient is on her BiPAP earlier this morning, she uses this routinely during sleep. [place] better breathing easier, however yesterday the patient developed atrial fibrillation went into RVR, and she required Cardizem drip, patient is being followed by cardiology, may or may not clear the patient for discharge today. Pulmonary michael I will clear the patient as long as she is cleared by cardiology for discharge. Objective - Vital Signs Vital signs: Vital Signs Temp 97.8 F 08/22/23 08:38 Pulse 106 H 08/22/23 12:12 Resp 20 08/22/23 12:12 BP 140/82 08/22/23 12:12 Pulse Ox 93 L 08/22/23 12:12 FiO2 35 08/21/23 19:40 Intake & Output 08/21/23 08/22/23 08/22/23 18:59 06:59 18:59 Intake Total 470 660 Output Total 2000 500 1100 Balance -1530 -500 -440 Weight 130.9 kg 130.9 kg Intake: Oral 470 660 Output: Urine 1999 500 1100 Other: Voiding Method Toilet Toilet # Voids 1 - Exam General: The patient is awake and alert, in no distress, and does not appear acutely ill. On 4 L nasal cannula after BiPAP Skin: Skin is warm and dry and no rashes or lesions are noted. Eye: Pupils are equal, round and reactive to light, extra-ocular movements are intact; there is normal conjunctiva bilaterally. Ears, nose, mouth and throat: There are moist mucous membranes and no oral lesions. Neck: The neck is supple, there is no tenderness or JVD. Cardiovascular: There is a regular rate and rhythm. No murmur, rub or gallop is appreciated. Respiratory: Fair bilaterally no rhonchi no wheezes Gastrointestinal: Soft, non-distended, non-tender abdomen without masses or organomegaly noted. There is no rebound or guarding present. Bowel sounds are unremarkable. Back: There is no tenderness to palpation in the midline. There is no obvious deformity. Musculoskeletal: Normal ROM, no tenderness, There is no pedal edema. There is no calf tenderness or swelling. No cords were appreciated. Neurological: CN II-XII intact, Cranial nerves III through XII are intact. There are no obvious motor or sensory deficits. Coordination appears grossly intact. Speech is normal. Psychiatric: Cooperative, appropriate mood & affect, normal judgment. - Labs CBC & Chem 7: 08/22/23 09:36 08/22/23 09:36 Labs: Abnormal Lab Results - Last 24 Hours (Table) 08/22/23 08/22/23 Range/Units 09:36 09:36 MCHC 29.2 L (31.0-37.0) g/dL RDW 18.5 H (11.5-15.5) % Chloride 96 L (98-107) mmol/L Carbon Dioxide 38 H (22-30) mmol/L BUN 24 H (7-17) mg/dL Glucose 133 H (74-99) mg/dL Microbiology - Last 24 Hours (Table) 08/19/23 13:00 Blood Culture - Preliminary Blood 08/19/23 13:15 Blood Culture - Preliminary Blood Assessment and Plan Assessment: Pression: Acute on chronic hypoxemic respiratory failure secondary to an acute exacerbation of diastolic congestive heart failure with mild increasing interstitial edema bilaterally in addition to increased lower extremity edema bilaterally. Responding well to IV diuretics Acute on chronic hypercapnic respiratory failure Severe obstructive sleep apnea with an AHI of 41 and titrated to a CPAP pressure of 11 cm of water Childhood asthma and the patient reports that she was intubated in the past on multiple occasions as a child in [facility] Morbid obesity with a BMI of 50.8 kg/m Prior history of significant tobacco use Multiple hospitalizations most recent of which was attributed to the right lower extremity cellulitis, treated with Keflex, most recent discharge July 27, 2023 MRSA in the sputum cultures on 07/03/2023 History of atrial fibrillation. Rate is controlled and the patient is on long- term anticoagulation with Eliquis History of hyperlipidemia History of hypertension History of coronary artery disease, with previous PCI/stent placement History of myocardial infarction Chronic anxiety/depression Poor overall functional performance based on the above-mentioned multiple comorbidities Possible atrial fibrillation being addressed by cardiology Recommendation: Continue present supportive care measures Continue diuretics Will clear for discharge if cleared by cardiology Time with Patient: Less than 30
== END 2023-08-22 13:37 | disposition home health service (06) | DRG 194 ==
LOC: EC 11:50 → 3SCARD 17:18 → 4SSUR 08-20 13:25 → OBSVTOIN 08-21 08:22 → 4SSUR 08-21 14:57 → 3SCARD 08-21 18:58
PROVIDERS: ADMIT Internal Medicine; ATTEND Internal Medicine
DX: I11.0 Hypertensive heart disease with heart failure (principal); F32.A Depression, unspecified; F41.9 Anxiety disorder, unspecified; G47.33 Obstructive sleep apnea (adult) (pediatric); I25.10 Atherosclerotic heart disease of native coronary artery without angina pectoris; I25.2 Old myocardial infarction; I48.19 Other persistent atrial fibrillation; I50.33 Acute on chronic diastolic (congestive) heart failure; E11.9 Type 2 diabetes mellitus without complications; I87.2 Venous insufficiency (chronic) (peripheral); J44.1 Chronic obstructive pulmonary disease with (acute) exacerbation; J96.21 Acute and chronic respiratory failure with hypoxia; J96.22 Acute and chronic respiratory failure with hypercapnia; L03.115 Cellulitis of right lower limb; L03.116 Cellulitis of left lower limb; D64.9 Anemia, unspecified; E66.01 Morbid (severe) obesity due to excess calories; Z68.43 Body mass index [BMI] 50.0-59.9, adult; E78.5 Hyperlipidemia, unspecified; Z11.52 Encounter for screening for COVID-19; Z79.899 Other long term (current) drug therapy; Z95.5 Presence of coronary angioplasty implant and graft; Z99.81 Dependence on supplemental oxygen; Z79.01 Long term (current) use of anticoagulants; Z79.891 Long term (current) use of opiate analgesic; Z88.6 Allergy status to analgesic agent; Z88.1 Allergy status to other antibiotic agents; Z28.311 Partially vaccinated for COVID-19
CPT/HCPCS: 36415; 71046; 80048; 80053; 83605; 83735; 83880; 84145; 84484; 85025; 85027; 85379; 85610; 85730; 87040; 87636; 93005; 94640; 94660; 96365; 96375; 96376; 99291

== ENCOUNTER 2023-08-24 20:57 | Inpatient (IN) | payer OTHER ==
--- NOTE | 2023-08-24 21:22 | ED ---
SOB HPI - General Chief Complaint: Shortness of Breath Stated Complaint: YADIRA Time Seen by Provider: 08/24/23 21:15 Source: patient, EMS Mode of arrival: EMS Limitations: no limitations - History of Present Illness Initial Comments: this patient is 57-year-old woman with history of stage IV COPD and atrial fibrillation. She had been discharged from the hospital yesterday after being admitted for dyspnea. Patient states that over the course of the afternoon and into the evening she's been feeling more short of breath. She feels like her heart is racing and her chest feels tight. The patient noticed the symptoms after she had taken a nap. She woke feeling awful. When the symptoms persisted she called EMS and they brought her here. She has not noted fevers or chills. No change in her cough. No new leg swelling. No change in urination or bowel movements. MD Complaint: shortness of breath, chest pain -: hour(s) Quality: other (tight) Consistency: constant Improves With: oxygen Worsens With: lying flat Known History Of: COPD, other (atrial fibrillation) Context: other (woke with symptoms) Treatments Prior to Arrival: oxygen, bronchodilator - Related Data Home Oxygen Therapy: Yes Home Oxygen Amount: 3 Liters Home Medications Medication Instructions Recorded Confirmed Apixaban [Eliquis] 5 mg PO BID 10/26/22 08/19/23 Atorvastatin [Lipitor] 40 mg PO HS 10/26/22 08/19/23 Cetirizine HCl 10 mg PO DAILY 10/26/22 08/19/23 FLUoxetine HCL [PROzac] 40 mg PO DAILY@1200 10/26/22 08/19/23 Folic Acid 1 mg PO DAILY 10/26/22 08/19/23 Gabapentin [Neurontin] 300 mg PO BID 10/26/22 08/19/23 Mirtazapine [Remeron] 15 mg PO HS 10/26/22 08/19/23 Montelukast [Singulair] 10 mg PO HS 10/26/22 08/19/23 Dulaglutide [Trulicity] 1.5 mg SQ SA 06/21/23 08/19/23 Ergocalciferol [Vitamin D2 (1250 1,250 mcg PO SA 06/21/23 08/19/23 Mcg = 03858 Iu)] Ipratropium-Albuterol Nebulize 3 ml INHALATION RT-QID 06/21/23 08/19/23 [Duoneb 0.5 mg-3 mg/3 ml Soln] Omeprazole 20 mg PO DAILY 06/21/23 08/19/23 lisinopriL [Zestril] 5 mg PO DAILY 06/21/23 08/19/23 HYDROcodone/APAP 10-325MG [[place] 1 tab PO TID 08/19/23 08/19/23 10-325] Metoprolol Tartrate [Lopressor] 100 mg PO BID 08/19/23 08/19/23 Previous Rx's Medication Instructions Recorded Fluticasone Nasal [place] [Flonase 2 spray EA NOSTRIL DAILY ml 06/27/23 Nasal [place]] guaiFENesin [Mucinex] 1,200 mg PO Q12HR tab 06/27/23 Furosemide [Lasix] 40 mg PO BID@0900,1600 #60 tab 07/27/23 Spironolactone [Aldactone] 25 mg PO DAILY 90 Days #90 tab 08/21/23 predniSONE See Taper PO DIRECTED 16 Days 08/21/23 #40 tab Allergies Allergy/AdvReac Type Severity Reaction Status Date / Time ibuprofen Allergy Rash/Hives Verified 08/24/23 21:04 NSAIDS (Non-Steroidal Allergy Rash/Hives Verified 08/24/23 21:04 Anti-Inflamma tetracycline Allergy Rash/Hives Verified 08/24/23 21:04 Review of Systems ROS Statement: Those systems with pertinent positive or pertinent negative responses have been documented in the HPI. ROS Other: All systems not noted in ROS Statement are negative. Constitutional: Reports: weakness. Denies: fever, chills Respiratory: Reports: cough, dyspnea, wheezes. Denies: hemoptysis Cardiovascular: Reports: chest pain, palpitations, orthopnea. Denies: edema, syncope Gastrointestinal: Denies: abdominal pain, vomiting, diarrhea Genitourinary: Denies: dysuria, hematuria Musculoskeletal: Denies: back pain Skin: Denies: rash Neurological: Denies: headache, weakness, numbness Psychiatric: Reports: anxiety Past Medical History Past Medical History: Atrial Fibrillation, Asthma, COPD, Hyperlipidemia, Hypertension, Myocardial Infarction ([place]), Respiratory Disorder Additional Past Medical History / Comment(s): wears oxygen 3lnc when mobile, +RSV 06/2023 Last Myocardial Infarction Date:: 2021 History of Any Multi-Drug Resistant Organisms: None Reported Past Surgical History: Heart Catheterization With Stent, Orthopedic Surgery Additional Past Surgical History / Comment(s): metal plate right arm, oral surg reva fracture jawed,hx gallstones Past Anesthesia/Blood Transfusion Reactions: No Reported Reaction Additional Past Anesthesia/Blood Transfusion Reaction / Comment(s): No blood transfusion Date of Last Stent Placement:: 2021 Past Psychological History: Anxiety, Depression Smoking Status: Former smoker Past Alcohol Use History: None Reported Past Drug Use History: None Reported - Past Family History Mother Family Medical History: Cancer Additional Family Medical History / Comment(s): uterine, breast, lymph nodes General Exam Limitations: no limitations General appearance: alert, in distress Head exam: Present: atraumatic, normocephalic Eye exam: Present: normal appearance. Absent: scleral icterus, conjunctival injection Neck exam: Present: normal inspection Respiratory exam: Present: respiratory distress, wheezes, accessory muscle use, decreased breath sounds, prolonged expiratory. Absent: rales, rhonchi, stridor Cardiovascular Exam: Present: tachycardia, irregular rhythm. Absent: systolic murmur, diastolic murmur, rubs, gallop GI/Abdominal exam: Present: soft. Absent: distended, tenderness, guarding, rebound, rigid, mass Extremities exam: Present: normal inspection, normal capillary refill, pedal edema (trace edema at the ankles). Absent: calf tenderness Back exam: Present: normal inspection. Absent: CVA tenderness (R), CVA tenderness (L) Neurological exam: Present: alert Skin exam: Present: warm, dry, intact, normal color. Absent: rash Course Vital Signs 08/24/23 08/24/23 08/24/23 21:00 21:31 22:50 Pulse Rate 140 H 130 H Respiratory 28 H 33 H Rate Blood Pressure 145/95 120/80 O2 Sat by Pulse 95 100 Oximetry Fraction of 100 Inspired Oxygen (FIO2) 08/24/23 08/24/23 08/25/23 23:41 23:44 00:41 Pulse Rate 122 H 112 H Respiratory 32 H Rate Blood Pressure 98/76 106/68 O2 Sat by Pulse 98 97 Oximetry Fraction of 100 Inspired Oxygen (FIO2) 08/25/23 08/25/23 08/25/23 00:59 01:10 03:08 Pulse Rate 123 H 128 H Respiratory 33 H 37 H Rate Blood Pressure 104/79 113/91 O2 Sat by Pulse 92 L 96 Oximetry Fraction of 60 Inspired Oxygen (FIO2) 08/25/23 08/25/23 04:13 05:00 Pulse Rate 137 H Respiratory 32 H Rate Blood Pressure 119/83 O2 Sat by Pulse 93 L Oximetry Fraction of 60 Inspired Oxygen (FIO2) Medical Decision Making - Medical Decision Making The patient had chest x-ray which I interpreted as negative for acute infiltrate, pneumothorax. There is congestive heart failure evident Patient is 57-year-old woman with moderately severe underlying COPD and in atrial fibrillation with rapid ventricular rate. Given her respiratory distress, patient started on BiPAP. The patient requested not to have Cardizem and felt this was because of previous leg edema. The patient did receive doses of metoprolol which began to control her rapid ventricular rate. The patient will be admitted to the hospital to have further treatment and evaluation. Case discussed with the cuff turner machine operator and patient at this point not requiring ICU admission will attempt to decrease the BiPAP support so that patient can go to stepdown Was pt. sent in by a medical professional or institution (, PA, MICROS[employer] EXCHANGE ARCHITECT, urgent care, hospital, or senior living...) When possible be specific @ -[No] Did you speak to anyone other than the patient for history (EMS, parent, family, police, friend...)? What history was obtained from this source @ -[No] Did you review nursing and triage notes (agree or disagree)? Why? @ -[I reviewed and agree with nursing and triage notes] Were old charts reviewed (outside hosp., previous admission, EMS record, old EKG, old radiological studies, urgent care reports/EKG's, senior living records)? Report findings @ -[Yes, old charts were reviewed] Differential Diagnosis (chest pain, altered mental status, abdominal pain women, abdominal pain men, vaginal bleeding, weakness, fever, dyspnea, syncope, headache, dizziness, GI bleed, back pain, seizure, CVA, palpatations, mental health, musculoskeletal)? @ -[Differential Dyspnea: Coronary syndrome, arrhythmia, tamponade, asthma, COPD, pulmonary embolism, pneumonia, pneumothorax, pulmonary effusion, anaphylaxis, diabetic ketoacidosis, flailed chest, pulmonary contusion, diaphragmatic rupture, anemia, neuromuscular, this is not meant to be an all-inclusive list. EKG interpreted by me (3pts min.). @ -[I interpreted as above] X-rays interpreted by me (1pt min.). @ -[I interpreted as above CT interpreted by me (1pt min.). @ -[None done] U/S interpreted by me (1pt. min.). @ -[None done] What testing was considered but not performed or refused? (CT, X-rays, U/S, labs)? Why? @ -[None] What meds were considered but not given or refused? Why? @ -[Cardizem considered patient wanted to stick with metoprolol for rate control Did you discuss the management of the patient with other professionals (professionals i.e. , PA, [employer] EXCHANGE ARCHITECT, lab, RT, psych nurse, social worker masters, photo studio assistant, teacher, security control room officer, showcase trimmer)? Give summary @ -[Yes, see above Was smoking cessation discussed for >3mins.? @ -[No] Was critical care preformed (if so, how long)? @ -[Yes, 35 minutes Were there social determinants of health that impacted care today? How? (Homelessness, low income, unemployed, alcoholism, drug addiction, transportation, low edu. Level, literacy, decrease access to med. care, care home, rehab)? @ -[No] Was there de-escalation of care discussed even if they declined (Discuss DNR or withdrawal of care, Hospice)? DNR status @ -[No] What co-morbidities impacted this encounter? (DM, HTN, Smoking, COPD, CAD, Cancer, CVA, ARF, Chemo, Hep., AIDS, mental health diagnosis, sleep apnea, morbid obesity)? @ -[COPD, CHF, atrial fibrillation, obesity Was patient admitted / discharged? Hospital course, mention meds given and route, prescriptions, significant lab abnormalities, going to OR and other pertinent info. @ -[Admitted, see above Undiagnosed new problem with uncertain prognosis? @ -[No] Drug Therapy requiring intensive monitoring for toxicity (Heparin, Nitro, Insu marcelo, Cardizem)? @ -[No] Were any procedures done? @ -[No] Diagnosis/symptom? @ -[Acute dyspnea Acute exacerbation of COPD Atrial fibrillation with rapid ventricular rate Acute, or Chronic, or Acute on Chronic? @ -[Acute on chronic Uncomplicated (without systemic symptoms) or Complicated (systemic symptoms)? @ -[Complicated by dyspnea Side effects of treatment? @ -[No] Exacerbation, Progression, or Severe Exacerbation? @ -[Exacerbation Poses a threat to life or bodily function? How? (Chest pain, [place], [place], pneumonia, PE, COPD, DKA, ARF, appy, cholecystitis, CVA, Diverticulitis, Homicidal, Suicidal, threat to staff... and all critical care pts) @ -[Yes there is risk of worsening of respiratory distress and to respiratory failure - Lab Data Result diagrams: 08/24/23 21:34 08/24/23 22:38 Lab Results 08/24/23 08/24/23 08/24/23 Range/Units 21:34 21:34 21:34 WBC 11.1 H (3.8-10.6) k/uL RBC 4.59 (3.80-5.40) m/uL Hgb 12.2 (11.4-16.0) gm/dL Hct 41.1 (34.0-46.0) % MCV 89.6 (80.0-100.0) fL MCH 26.7 (25.0-35.0) pg MCHC 29.8 L (31.0-37.0) g/dL RDW 18.3 H (11.5-15.5) % Plt Count 271 (150-450) k/uL MPV 8.2 Neutrophils % 86 % Lymphocytes % 7 % Monocytes % 6 % Eosinophils % 1 % Basophils % 0 % Neutrophils # 9.5 H (1.3-7.7) k/uL Lymphocytes # 0.7 L (1.0-4.8) k/uL Monocytes # 0.6 (0-1.0) k/uL Eosinophils # 0.1 (0-0.7) k/uL Basophils # 0.0 (0-0.2) k/uL Hypochromasia Marked Anisocytosis Slight PT 11.6 (10.0-12.5) sec INR 1.1 (<1.2) APTT 25.4 (22.0-30.0) sec Sodium (137-145) mmol/L Potassium (3.5-5.1) mmol/L Chloride (98-107) mmol/L Carbon Dioxide (22-30) mmol/L Anion Gap mmol/L BUN (7-17) mg/dL Creatinine (0.52-1.04) mg/dL Est GFR (CKD-EPI)AfAm (>60 ml/min/1.73 sqM) Est GFR (CKD-EPI)NonAf (>60 ml/min/1.73 sqM) Glucose (74-99) mg/dL Plasma Lactic Acid Rom 1.4 (0.7-2.0) mmol/L Calcium (8.4-10.2) mg/dL Total Bilirubin (0.2-1.3) mg/dL AST (14-36) U/L ALT (4-34) U/L Alkaline Phosphatase (38-126) U/L Troponin I (0.000-0.034) ng/mL NT-Pro-B Natriuret Pep pg/mL Total Protein (6.3-8.2) g/dL Albumin (3.5-5.0) g/dL 08/24/23 08/24/23 Range/Units 21:34 22:38 WBC (3.8-10.6) k/uL RBC (3.80-5.40) m/uL Hgb (11.4-16.0) gm/dL Hct (34.0-46.0) % MCV (80.0-100.0) fL MCH (25.0-35.0) pg MCHC (31.0-37.0) g/dL RDW (11.5-15.5) % Plt Count (150-450) k/uL MPV Neutrophils % % Lymphocytes % % Monocytes % % Eosinophils % % Basophils % % Neutrophils # (1.3-7.7) k/uL Lymphocytes # (1.0-4.8) k/uL Monocytes # (0-1.0) k/uL Eosinophils # (0-0.7) k/uL Basophils # (0-0.2) k/uL Hypochromasia Anisocytosis PT (10.0-12.5) sec INR (<1.2) APTT (22.0-30.0) sec Sodium 137 (137-145) mmol/L Potassium 4.3 (3.5-5.1) mmol/L Chloride 96 L (98-107) mmol/L Carbon Dioxide 37 H (22-30) mmol/L Anion Gap 4 mmol/L BUN 27 H (7-17) mg/dL Creatinine 0.61 (0.52-1.04) mg/dL Est GFR (CKD-EPI)AfAm >90 (>60 ml/min/1.73 sqM) Est GFR (CKD-EPI)NonAf >90 (>60 ml/min/1.73 sqM) Glucose 121 H (74-99) mg/dL Plasma Lactic Acid Rom (0.7-2.0) mmol/L Calcium 8.9 (8.4-10.2) mg/dL Total Bilirubin 1.0 (0.2-1.3) mg/dL AST 28 (14-36) U/L ALT 31 (4-34) U/L Alkaline Phosphatase 99 (38-126) U/L Troponin I <0.012 (0.000-0.034) ng/mL NT-Pro-B Natriuret Pep 5490 pg/mL Total Protein 6.3 (6.3-8.2) g/dL Albumin 3.7 (3.5-5.0) g/dL - EKG Data -: EKG Interpreted by [place] EKG shows normal: axis (normal), intervals (normal), QRS complexes (normal) Rate: tachycardia (rate 141 bpm) Interpretation: nonspecific ST-T wave changes, other (underlying rhythm is atrial fibrillation) Critical Care Time Critical Care Time: Yes (35 minutes) Disposition Clinical Impression: COPD exacerbation, Elevated brain natriuretic peptide (BNP) level, Atrial fibrillation with rapid ventricular response Disposition: ADMITTED IP TO THIS HOSP Condition: Serious Is patient prescribed a controlled substance at d/c from ED?: No
[2023-08-24 21:43] LABS: Anisocytosis Slight; Basophils % (A) 0 %; Eosinophils # (A) 0.1 k/uL (0-0.7); Eosinophils % (A) 1 %; HCT 41.1 % (34.0-46.0); HGB 12.2 gm/dL (11.4-16.0); Hypochromasia Marked; Lymphocytes # (A) 0.7 k/uL (1.0-4.8); Lymphocytes % (A) 7 %; MCH 26.7 pg (25.0-35.0); MCHC 29.8 g/dL (31.0-37.0); MCV 89.6 fL (80.0-100.0); Mean Platelet Volume 8.2; Monocytes # (A) 0.6 k/uL (0-1.0); Monocytes % (A) 6 %; Neutrophils # (A) 9.5 k/uL (1.3-7.7); Neutrophils % (A) 86 %; Platelet Count 271 k/uL (150-450); RBC 4.59 m/uL (3.80-5.40); RDW 18.3 % (11.5-15.5); WBC 11.1 k/uL (3.8-10.6)
[2023-08-24 21:59] LABS: INR 1.1 (<1.2); Partial Thromboplastin Time 25.4 sec (22.0-30.0); Prothrombin Time 11.6 sec (10.0-12.5)
[2023-08-24] MEDS: METOPROLOL TARTRATE 5 MG/5 ML VIAL IVP SCH (23:03)
[2023-08-24 23:07] LABS: ALT 31 U/L (4-34); AST 28 U/L (14-36); African American GFR (CKD) >90 (>60 ml/min/1.73 sqM); Albumin 3.7 g/dL (3.5-5.0); Alkaline Phosphatase 99 U/L (38-126); Anion Gap 4 mmol/L; Blood Urea Nitrogen 27 mg/dL (7-17); Calcium 8.9 mg/dL (8.4-10.2); Carbon Dioxide 37 mmol/L (22-30); Chloride 96 mmol/L (98-107); Glucose 121 mg/dL (74-99); Non-African American GFR(CKD) >90 (>60 ml/min/1.73 sqM); Potassium 4.3 mmol/L (3.5-5.1); Sodium 137 mmol/L (137-145); Total Protein 6.3 g/dL (6.3-8.2)
[2023-08-24 23:14] LABS: NT-Pro-B-Type Natriuretic Pept 5490 pg/mL
[2023-08-24] MEDS ORDERED: NALOXONE 0.4 MG/ML 1 ML VIAL IVP PRN (23:17)
[2023-08-24] MEDS ORDERED: NITROGLYCERIN SL TABS 0.4 MG TAB SUBLINGUAL PRN (23:20)
--- NOTE | 2023-08-25 01:51 | XR ---
EXAM: XR chest 1V portable CLINICAL INDICATION:Female, 57 years old with history of dyspnea; [facility] COMPARISON: 08/19/2023 TECHNIQUE: Chest single view. FINDINGS: Exam is limited by patient body habitus. Lines/tubes/devices: Breathing apparatus and monitor leads on the chest. Cardiomediastinum: Cardiac silhouette appears moderately enlarged. Somewhat fuzzy margins of the mediastinal silhouette. Vasculature: Prominent central congestion. Mildly increased interstitial markings can be related to congestion or infiltrates. Lungs/pleura: Lung volumes are diminished, with crowding of lung markings and minor bibasilar opacities likely on t he basis of atelectasis. Otherwise no definite confluent consolidative process, sizable effusion, or pneumothorax demonstrated. Bones/soft tissues: Bony thorax appears grossly intact as seen. Regional soft tissues appear unremarkable. IMPRESSION: Moderate to severe CHF, slightly worse compared to old exam.
[2023-08-25] MEDS: METOPROLOL TARTRATE 5 MG/5 ML VIAL IVP STA ×2 (05:44→06:45)
[2023-08-25] MEDS: ACETAMINOPHEN TAB 325 MG TAB PO PRN (05:54)
[2023-08-25] MEDS: MIDODRINE 5 MG TAB PO STA (06:44)
[2023-08-25] MEDS: IPRATROPIUM-ALBUTEROL 3 ML NEB INHALATION SCH (08:04)
[2023-08-25] MEDS ORDERED: ENOXAPARIN 40 MG/0.4 ML SYRINGE SQ SCH (09:00)
[2023-08-25] MEDS ORDERED: FUROSEMIDE 40 MG TAB PO SCH (09:00)
[2023-08-25] MEDS: ASPIRIN 325 MG TAB PO SCH (09:43)
[2023-08-25] MEDS: PANTOPRAZOLE 40 MG TABLET PO SCH (09:44)
[2023-08-25] MEDS: APIXABAN 5 MG TAB PO SCH (09:44)
[2023-08-25] MEDS: guaiFENesin 600 MG TABLET.ER PO SCH (09:44)
[2023-08-25] MEDS: HYDROcodone/APAP 10-325MG 1 EACH TAB PO SCH (09:44)
[2023-08-25] MEDS: predniSONE 20 MG TAB PO SCH (09:44)
[2023-08-25] MEDS: FOLIC ACID 1 MG TAB PO SCH (09:44)
[2023-08-25] MEDS: METOPROLOL TARTRATE 50 MG TAB PO SCH (09:44)
[2023-08-25] MEDS: GABAPENTIN 300 MG CAP PO SCH (09:45)
[2023-08-25] MEDS: FUROSEMIDE 10 MG/ML 4 ML VIAL IV SCH ×2 (09:45→20:31)
[2023-08-25 09:49] LABS: Chol/HDL Ratio 2.74 Ratio
--- NOTE | 2023-08-25 12:55 | P.HPIM ---
History of Present Illness H&P Date: 08/25/23 History of present illness; Patient is a 57-year-old female with a past medical history of CAD with stenting, chronic diastolic heart failure, hypertension, hyperlipidemia, chronic atrial fibrillation on anticoagulation with Eliquis, type II [id number] diabetes mellitus, chronic venous stasis dermatitis with chronic bilateral lower extremity edema, severe obstructive sleep apnea CPAP dependent, and chronic hypoxic respiratory failure secondary to advanced COPD home oxygen dependent 3 L presented to the ER for worsening shortness of breath. Patient was only discharged on hospital day ago, patient stated she was all right till today when in the afternoon started noticing that her breathing was getting worse. Patient was complaining of her heart beating fast and her chest feeling tight. Patient complains of shortness of breath at rest and on exertion as well. Patient denies any fever or chills. There is no complaint of orthopnea or PND. Because of these worsening symptoms, patient called EMS and she was brought to the ER Initial lab work done in the ER showed WBC 11.1, hemoglobin 12.2, platelet count 271, sodium 137, potassium 4.3, BUN 27, creatinine 0.61, lactate 1.4, troponin 0.012, proBNP 5490 EKG done in the ER showed heart rate of 114, QRS 81, irregular rate and rhythm, no ST segment elevation or depression seen, no T-wave inversions seen. Chest x-ray done in the ER moderate to severe CHF Patient admitted to internal medicine service REVIEW OF SYSTEMS: CONSTITUTIONAL: No fever, no malaise, no fatigue. HEENT: No recent visual problems or hearing problems. Denied any sore throat. CARDIOVASCULAR: As mentioned above PULMONARY: As mentioned above GASTROINTESTINAL: No diarrhea, no nausea, no vomiting, no abdominal pain. NEUROLOGICAL: No headaches, no weakness, no numbness. HEMATOLOGICAL: Denies any bleeding or petechiae. GENITOURINARY: Denies any burning micturition, frequency, or urgency. MUSCULOSKELETAL/RHEUMATOLOGICAL: As mentioned above ENDOCRINE: Denies any polyuria or polydipsia. The rest of the 14-point review of systems is negative. PHYSICAL EXAMINATION: GENERAL: The patient is alert and oriented x3, not in any acute distress. Well developed, well nourished. HEENT: Pupils are round and equally reacting to light. EOMI. No scleral icterus. No conjunctival pallor. Normocephalic, atraumatic. No pharyngeal erythema. No thyromegaly. CARDIOVASCULAR: S1 and S2 present. No murmurs, rubs, or gallops. Irregular rate and rhythm PULMONARY: Coarse breath sounds bilaterally, bilateral crackles audible ABDOMEN: Soft, nontender, nondistended, normoactive bowel sounds. No palpable organomegaly. MUSCULOSKELETAL: No joint swelling or deformity. EXTREMITIES: 1+ pitting edema NEUROLOGICAL: Gross neurological examination did not reveal any focal deficits. SKIN: No rashes. Assessment and plan Acute on chronic hypoxic respiratory failure Acute on chronic diastolic heart failure exacerbation COPD with chronic oxygen dependency, baseline 3-4 L at all times Severe obstructive sleep apnea. Atrial fibrillation with RVR in pt with Chronic atrial fibrillation on anticoagulation with Eliquis CAD with previous stent Hypertension Hyperlipidemia Bilateral lower extremity edema with venous stasis dermatitis. Type II [id number] diabetes mellitus with hemoglobin A1c of 7%. Morbid obesity with BMI of 50.8 kg/m Monitor vital signs Monitor CBC Monitor CMP Continue telemetry monitoring Continue oxygen supplementation Continue use of CPAP nightly. Strict I's and O's, daily weights Continue IV Lasix 40 mg twice daily Continue breathing treatments with DuoNeb Consult pulmonary Consult cardiology Labs and medication were reviewed.. Continue same treatment. Continue with symptomatic treatment. Resume home medication. Monitor labs and vitals. DVT and GI prophylaxis. Further recommendations as per clinical course of the patient Dictation was produced using [employer] dictation software. please excuse any grammatical, word or spelling errors. Past Medical History Past Medical History: Atrial Fibrillation, Asthma, COPD, Hyperlipidemia, Hypertension, Myocardial Infarction ([place]), Respiratory Disorder Additional Past Medical History / Comment(s): wears oxygen 3lnc when mobile, +RSV 06/2023 Last Myocardial Infarction Date:: 2021 History of Any Multi-Drug Resistant Organisms: None Reported Past Surgical History: Heart Catheterization With Stent, Orthopedic Surgery Additional Past Surgical History / Comment(s): metal plate right arm, oral surgery fracture jawed,hx gallstones Past Anesthesia/Blood Transfusion Reactions: No Reported Reaction Additional Past Anesthesia/Blood Transfusion Reaction / Comment(s): No blood transfusion Date of Last Stent Placement:: 2021 Past Psychological History: Anxiety, Depression Smoking Status: Former smoker Past Alcohol Use History: None Reported Past Drug Use History: None Reported - Past Family History Mother Family Medical History: Cancer Additional Family Medical History / Comment(s): uterine, breast, lymph nodes Medications and Allergies Home Medications Medication Instructions Recorded Confirmed Type Apixaban [Eliquis] 5 mg PO BID 10/26/22 08/25/23 History Atorvastatin [Lipitor] 40 mg PO HS 10/26/22 08/25/23 History Cetirizine HCl 10 mg PO DAILY 10/26/22 08/25/23 History FLUoxetine HCL [PROzac] 40 mg PO DAILY@1200 10/26/22 08/25/23 History Folic Acid 1 mg PO DAILY 10/26/22 08/25/23 History Gabapentin [Neurontin] 300 mg PO BID 10/26/22 08/25/23 History Mirtazapine [Remeron] 15 mg PO HS 10/26/22 08/25/23 History Montelukast [Singulair] 10 mg PO HS 10/26/22 08/25/23 History Dulaglutide [Trulicity] 1.5 mg SQ SA 06/21/23 08/25/23 History Ergocalciferol [Vitamin D2 (1250 1,250 mcg PO SA 06/21/23 08/25/23 History Mcg = 00470 Iu)] Ipratropium-Albuterol Nebulize 3 ml INHALATION RT-QID 06/21/23 08/25/23 History [Duoneb 0.5 mg-3 mg/3 ml Soln] Omeprazole 20 mg PO DAILY 06/21/23 08/25/23 History lisinopriL [Zestril] 5 mg PO DAILY 06/21/23 08/25/23 History Fluticasone Nasal [place] [Flonase 2 spray EA NOSTRIL DAILY ml 06/27/23 08/25/23 Rx Nasal [place]] guaiFENesin [Mucinex] 1,200 mg PO Q12HR tab 06/27/23 08/25/23 Rx Furosemide [Lasix] 40 mg PO BID@0900,1600 #60 tab 07/27/23 08/25/23 Rx HYDROcodone/APAP 10-325MG [[place] 1 tab PO TID 08/19/23 08/25/23 History 10-325] Metoprolol Tartrate [Lopressor] 100 mg PO BID 08/19/23 08/25/23 History Spironolactone [Aldactone] 25 mg PO DAILY 90 Days #90 tab 08/21/23 08/25/23 Rx predniSONE See Taper PO DIRECTED 16 Days 08/21/23 08/25/23 Rx #40 tab Allergies Allergy/AdvReac Type Severity Reaction Status Date / Time ibuprofen Allergy Rash/Hives Verified 08/25/23 10:34 NSAIDS (Non-Steroidal Allergy Rash/Hives Verified 08/25/23 10:34 Anti-Inflamma tetracycline Allergy Rash/Hives Verified 08/25/23 10:34 Physical Exam Vitals: Vital Signs Temp Pulse Resp BP Pulse Ox FiO2 08/25/23 08:04 60 08/25/23 08:00 98.2 F 133 H 38 H 112/53 93 L 08/25/23 07:39 126 H 34 H 103/84 93 L 08/25/23 06:06 100.0 F H 08/25/23 05:00 137 H 32 H 119/83 93 L 08/25/23 04:13 60 08/25/23 03:08 128 H 37 H 113/91 96 08/25/23 01:10 123 H 33 H 104/79 92 L 08/25/23 00:59 60 08/25/23 00:41 112 H 106/68 97 08/24/23 23:44 122 H 32 H 98/76 98 08/24/23 23:41 100 08/24/23 22:50 130 H 33 H 120/80 100 08/24/23 21:31 100 08/24/23 21:00 140 H 28 H 145/95 95 Intake and Output 08/24/23 08/25/23 08/25/23 22:59 06:59 14:59 Other: Weight 130.635 kg Results CBC & Chem 7: 08/24/23 21:34 08/24/23 22:38 Labs: Abnormal Lab Results - Last 24 Hours (Table) 08/24/23 08/24/23 Range/Units 21:34 22:38 WBC 11.1 H (3.8-10.6) k/uL MCHC 29.8 L (31.0-37.0) g/dL RDW 18.3 H (11.5-15.5) % Neutrophils # 9.5 H (1.3-7.7) k/uL Lymphocytes # 0.7 L (1.0-4.8) k/uL Chloride 96 L (98-107) mmol/L Carbon Dioxide 37 H (22-30) mmol/L BUN 27 H (7-17) mg/dL Glucose 121 H (74-99) mg/dL
[2023-08-25] MEDS: DILTIAZEM ORAL 30 MG TAB PO SCH (13:39)
[2023-08-25] MEDS: SPIRONOLACTONE 25 MG TAB PO SCH (14:28)
[2023-08-25] MEDS: lisinopriL 5 MG TAB PO SCH (14:28)
--- NOTE | 2023-08-25 14:46 | P.CNPUL ---
History of Present Illness Consult date: 08/25/23 Requesting physician: Iftikhar Cristina Reason for consult: dyspnea, COPD, hypoxemia Chief complaint: Shortness of breath History of present illness: This is a 57-year-old female familiar to our service, patient has been recently admitted and discharged, we saw her on consultation for her COPD and obesity hypoventilation syndrome, with chronic hypoxic respiratory failure, patient however has been recently admitted with atrial fibrillation RVR, and pulmonary edema related to her atrial fibrillation with RVR. She was just discharged 3 days ago by cardiology, patient was readmitted this time with a similar presentation mostly shortness of breath, atrial fibrillation with RVR, and requiring BiPAP treatment upon admission mostly because of her hypoxia and hypercapnia. Patient is morbidly obese, and I saw her again today in the morning for her shortness of breath. Patient was noted to be on BiPAP, 14/6/60%, and her O2 saturation was in the 90s. Patient was hemodynamically stable, her rate seems to be poorly controlled, and cardiology is to address her cardiac arrhythmia/atrial fibrillation with RVR looking back at this patient's history, she is 57 years old with known history of coronary artery disease and stenting, chronic diastolic congestive heart failure, hypertension, chronic atri al fibrillation on Eliquis, non-insulin dependent diabetes, history of chronic venous stasis changes, history of COPD, obstructive sleep apnea syndrome, obesity hypoventilation syndrome, and again as noted above patient had multiple admissions with similar presentation to the hospital Chest x-ray on this admission clearly showed evidence of moderate to severe congestive heart failure Review of Systems CONSTITUTIONAL: Positive for weight gain. EYES: Denies change in vision. EARS, NOSE, MOUTH, THROAT: Denies headaches, denies sore throat. CARDIOVASCULAR: As noted HPI RESPIRATORY: Positive for shortness of breath, cough, congestion no hemoptysis. GASTROINTESTINAL: Denies change in appetite, denies abdominal pain GENITOURINARY: Denies hematuria, denies infections. MUSKULOSKELETAL: Positive for swelling. INTEGUMENTARY: Denies rash, denies eczema. NEUROLOGICAL: Denies recent memory loss, no recent seizure activity. PSYCHIATRIC: Denies anxiety, denies depression. HEMATOLOGIC/LYMPHATIC: Denies anemia, denies enlarged lymph nodes. Past Medical History Past Medical History: Atrial Fibrillation, Asthma, COPD, Hyperlipidemia, Hypertension, Myocardial Infarction ([place]), Respiratory Disorder Additional Past Medical History / Comment(s): wears oxygen 3lnc when mobile, +RSV 06/2023 Last Myocardial Infarction Date:: 2021 History of Any Multi-Drug Resistant Organisms: None Reported Past Surgical History: Heart Catheterization With Stent, Orthopedic Surgery Additional Past Surgical History / Comment(s): metal plate right arm, oral surgery fracture jawed,hx gallstones Past Anesthesia/Blood Transfusion Reactions: No Reported Reaction Additional Past Anesthesia/Blood Transfusion Reaction / Comment(s): No blood transfusion Date of Last Stent Placement:: 2021 Past Psychological History: Anxiety, Depression Smoking Status: Former smoker Past Alcohol Use History: None Reported Past Drug Use History: None Reported - Past Family History Mother Family Medical History: Cancer Additional Family Medical History / Comment(s): uterine, breast, lymph nodes Medications and Allergies Home Medications Medication Instructions Recorded Confirmed Type Apixaban [Eliquis] 5 mg PO BID 10/26/22 08/25/23 History Atorvastatin [Lipitor] 40 mg PO 10/26/22 08/25/23 History Cetirizine HCl 10 mg PO DAILY 10/26/22 08/25/23 History FLUoxetine HCL [PROzac] 40 mg PO DAILY@1200 10/26/22 08/25/23 History Folic Acid 1 mg PO DAILY 10/26/22 08/25/23 History Gabapentin [Neurontin] 300 mg PO BID 10/26/22 08/25/23 History Mirtazapine [Remeron] 15 mg PO 10/26/22 08/25/23 History Montelukast [Singulair] 10 mg PO 10/26/22 08/25/23 History Dulaglutide [Trulicity] 1.5 mg SQ 06/21/23 08/25/23 History Ergocalciferol [Vitamin D2 (1250 1,250 mcg PO SA 06/21/23 08/25/23 History Mcg = 11922 Iu)] Ipratropium-Albuterol Nebulize 3 ml INHALATION RT-QID 06/21/23 08/25/23 History [Duoneb 0.5 mg-3 mg/3 ml Soln] Omeprazole 20 mg PO DAILY 06/21/23 08/25/23 History lisinopriL [Zestril] 5 mg PO DAILY 06/21/23 08/25/23 History Fluticasone Nasal [place] [Flonase 2 spray EA NOSTRIL DAILY ml 06/27/23 08/25/23 Rx Nasal [place]] guaiFENesin [Mucinex] 1,200 mg PO Q12HR tab 06/27/23 08/25/23 Rx Furosemide [Lasix] 40 mg PO BID@0900,1600 #60 tab 07/27/23 08/25/23 Rx HYDROcodone/APAP 10-325MG [[place] 1 tab PO TID 08/19/23 08/25/23 History 10-325] Metoprolol Tartrate [Lopressor] 100 mg PO BID 08/19/23 08/25/23 History Spironolactone [Aldactone] 25 mg PO DAILY 90 Days #90 tab 08/21/23 08/25/23 Rx predniSONE See Taper PO DIRECTED 16 Days 08/21/23 08/25/23 Rx #40 tab Allergies Allergy/AdvReac Type Severity Reaction Status Date / Time ibuprofen Allergy Rash/Hives Verified 08/25/23 10:34 NSAIDS (Non-Steroidal Allergy Rash/Hives Verified 08/25/23 10:34 Anti-Inflamma tetracycline Allergy Rash/Hives Verified 08/25/23 10:34 Physical Exam Vitals: Vital Signs Temp Pulse Resp BP Pulse Ox FiO2 08/25/23 13:52 92 L 08/25/23 12:30 101 H 87/62 08/25/23 12:00 101 H 27 H 111/80 93 L 08/25/23 11:30 102 H 32 H 92/60 94 L 08/25/23 11:26 50 08/25/23 11:00 120 H 21 99/68 94 L 08/25/23 10:00 100 21 98/68 94 L 08/25/23 09:41 115 H 30 H 109/84 90 L 08/25/23 08:04 60 08/25/23 08:00 98.2 F 133 H 38 H 112/53 93 L 08/25/23 07:39 126 H 34 H 103/84 93 L 08/25/23 06:06 100.0 F H 08/25/23 05:00 137 H 32 H 119/83 93 L 08/25/23 04:13 60 08/25/23 03:08 128 H 37 H 113/91 96 08/25/23 01:10 123 H 33 H 104/79 92 L 08/25/23 00:59 60 08/25/23 00:41 112 H 106/68 97 08/24/23 23:44 122 H 32 H 98/76 98 08/24/23 23:41 100 08/24/23 22:50 130 H 33 H 120/80 100 08/24/23 21:31 100 08/24/23 21:00 140 H 28 H 145/95 95 Intake and Output 08/24/23 08/25/23 08/25/23 22:59 06:59 14:59 Output Total 1150 Balance -1150 Output: Urine 1150 Other: Weight 130.635 kg GENERAL EXAM: Reveals a 57-year-old female obese, on BiPAP, in no distress HEAD: Normocephalic. EYES: Normal reaction of pupils, equal size. NOSE: Clear with pink turbinates. THROAT: No erythema or exudates. Crowding of the posterior pharynx NECK: Short. No masses, no JVD. CHEST: No chest wall deformity. LUNGS: Crackles at the bases bilaterally. CVS: S1 and S2 normal with no audible murmur, regular rhythm. ABDOMEN: Obesity, unable to appreciate any hepatosplenomegaly, normal bowel sounds, no guarding or rigidity. SKIN: No rashes CENTRAL NERVOUS SYSTEM: Alert oriented x 3 no gross focal deficit Psychiatric: Normal mood affect and no mental status examination EXTREMITIES: 1+ bipedal edema. No clubbing, no cyanosis. Peripheral pulses are intact. Results - Laboratory Findings CBC and BMP: 08/24/23 21:34 08/24/23 22:38 PT/INR, D-dimer PT 11.6 sec (10.0-12.5) 08/24/23 21:34 INR 1.1 (<1.2) 08/24/23 21:34 Abnormal lab findings: Abnormal Labs 08/24/23 08/24/23 21:34 22:38 WBC 11.1 H MCHC 29.8 L RDW 18.3 H Neutrophils # 9.5 H Lymphocytes # 0.7 L Chloride 96 L Carbon Dioxide 37 H BUN 27 H Glucose 121 H - Diagnostic Findings Chest x-ray: image reviewed (Chest x-ray consistent with congestive heart failure) Assessment and Plan Assessment: Impression: Chronic atrial fibrillation however the patient presented now with atrial fibrillation and RVR most likely contributing to her pulmonary edema. Acute on chronic hypoxemic respiratory failure secondary to an acute exacerbatio n of diastolic congestive heart failure with mild increasing interstitial edema bilaterally in addition to increased lower extremity edema bilaterally. Acute on chronic hypercapnic respiratory failure Severe obstructive sleep apnea with an AHI of 41 and titrated to a CPAP pressure of 11 cm of water Childhood asthma and the patient reports that she was intubated in the past on multiple occasions as a child in [facility]. Morbid obesity with a BMI of 50.8 kg/m Prior history of significant tobacco use Multiple hospitalizations most recent of which was attributed to the right lower extremity cellulitis, treated with Keflex, most recent discharge July 27, 2023 MRSA in the sputum cultures on 07/03/2023 History of atrial fibrillation. History of hyperlipidemia History of hypertension History of coronary artery disease, with previous PCI/stent placement History of myocardial infarction Chronic anxiety/depression Poor overall functional performance based on the above-mentioned multiple comorbidities Recommendation: Continue BiPAP Resume home meds including beta-blockers and Eliquis Continue diuretics patient is on Lasix 40 mg IV push twice daily Continue bronchodilators and steroids Titrate BiPAP and FiO2 accordingly Cardiology to see on consultation Will continue to follow Time with Patient: Greater than 30
[2023-08-25] MEDS ORDERED: FUROSEMIDE 10 MG/ML 4 ML VIAL IV SCH (16:00)
--- NOTE | 2023-08-25 19:02 | P.CRDCN ---
History of Present Illness Consult date: 08/25/23 History of present illness: HISTORY OF PRESENTING ILLNESS Patient with past medical history of chronic atrial fibrillation, diastolic heart failure who has had multiple hospital admissions in the last 3 months. She was last admitted to the hospital 1 week ago and was discharged 3 days ago. During that hospital admission she was treated for atrial fibrillation with RVR and diastolic heart failure exacerbation with IV diuretics. Last admission her beta-sara was increased and her Cardizem was discontinued. She was started on Aldactone and was discharged home on Lasix. She also has past medical history of obesity hypoventilation syndrome, COPD, This time she presented to the hospital because of increased shortness of breath, palpitations, and reduced energy levels. Admission she was noticed to be in atrial fibrillation with RVR with heart rates in 130s to 140s beats per minute. Chest x-ray was a poor quality image but did show mild pulmonary congestion in bilateral lung hess. REVIEW OF SYSTEMS 14 point review of system is negative except what is mentioned above in HPI. PHYSICAL EXAMINATION Vital signs reviewed. 106/70, heart rate 94 Neck: Brisk carotid upstroke, elevated jugular venous distention. Lungs: Diminished breath sounds, poor inspiratory effort, crackles in bilateral lung hess Heart: Irregularly irregular pulse, S1-S2 audible, no murmurs Abdomen: Soft nontender,. Extremities: 1+ bilateral lower extremity edema Neuro: Alert, oritented, no focal deficits. Detailed neuro exam was not performed. ASSESSMENT Acute hypoxic respiratory failure Persistent atrial fibrillation, currently RVR HFpEF exacerbation Chronic hypercapnia with obesity hypoventilation syndrome and AUTUMN Morbid obesity PLAN IV Lasix 40 mg twice daily Continue Aldactone 25 mg daily Increase metoprolol to 100 mg twice daily Add Cardizem 30 mg 4 times daily. Discontinue Cardizem drip Discontinue midodrine Continue lisinopril 5 mg daily. On discharge make sure she goes home on [facility]. If you have further difficulty in controlling patient's heart rate and patient has frequent relapses, she would need A-fib ablation evaluation. Continue BiPAP support. Jarrett Solano MD, FACC, RPVI Thank you for allowing [facility] to participate in this patient's care. Feel free to reach out in case of any followup questions. Past Medical History Past Medical History: Atrial Fibrillation, Asthma, COPD, Hyperlipidemia, Hypertension, Myocardial Infarction (NH), Respiratory Disorder Additional Past Medical History / Comment(s): wears oxygen 3lnc when mobile, +RSV 06/2023 Last Myocardial Infarction Date:: 2021 History of Any Multi-Drug Resistant Organisms: None Reported Past Surgical History: Heart Catheterization With Stent, Orthopedic Surgery Additional Past Surgical History / Comment(s): metal plate right arm, oral surgery fracture jawed,hx gallstones Past Anesthesia/Blood Transfusion Reactions: No Reported Reaction Additional Past Anesthesia/Blood Transfusion Reaction / Comment(s): No blood transfusion Date of Last Stent Placement:: 2021 Past Psychological History: Anxiety, Depression Smoking Status: Former smoker Past Alcohol Use History: None Reported Past Drug Use History: None Reported - Past Family History Mother Family Medical History: Cancer Additional Family Medical History / Comment(s): uterine, breast, lymph nodes Medications and Allergies Home Medications Medication Instructions Recorded Confirmed Type Apixaban [Eliquis] 5 mg PO BID 10/26/22 08/25/23 History Atorvastatin [Lipitor] 40 mg PO 10/26/22 08/25/23 History Cetirizine HCl 10 mg PO DAILY 10/26/22 08/25/23 History FLUoxetine HCL [PROzac] 40 mg PO DAILY@1200 10/26/22 08/25/23 History Folic Acid 1 mg PO DAILY 10/26/22 08/25/23 History Gabapentin [Neurontin] 300 mg PO BID 10/26/22 08/25/23 History Mirtazapine [Remeron] 15 mg PO 10/26/22 08/25/23 History Montelukast [Singulair] 10 mg PO 10/26/22 08/25/23 History Dulaglutide [Trulicity] 1.5 mg SQ 06/21/23 08/25/23 History Ergocalciferol [Vitamin D2 (1250 1,250 mcg PO SA 06/21/23 08/25/23 History Mcg = 18386 Iu)] Ipratropium-Albuterol Nebulize 3 ml INHALATION RT-QID 06/21/23 08/25/23 History [Duoneb 0.5 mg-3 mg/3 ml Soln] Omeprazole 20 mg PO DAILY 06/21/23 08/25/23 History lisinopriL [Zestril] 5 mg PO DAILY 06/21/23 08/25/23 History Fluticasone Nasal [place] [Flonase 2 spray EA NOSTRIL DAILY ml 06/27/23 08/25/23 Rx Nasal [place]] guaiFENesin [Mucinex] 1,200 mg PO Q12HR tab 06/27/23 08/25/23 Rx Furosemide [Lasix] 40 mg PO BID@0900,1600 #60 tab 07/27/23 08/25/23 Rx HYDROcodone/APAP 10-325MG [[place] 1 tab PO TID 08/19/23 08/25/23 History 10-325] Metoprolol Tartrate [Lopressor] 100 mg PO BID 08/19/23 08/25/23 History Spironolactone [Aldactone] 25 mg PO DAILY 90 Days #90 tab 08/21/23 08/25/23 Rx predniSONE See Taper PO DIRECTED 16 Days 08/21/23 08/25/23 Rx #40 tab Allergies Allergy/AdvReac Type Severity Reaction Status Date / Time ibuprofen Allergy Rash/Hives Verified 08/25/23 10:34 NSAIDS (Non-Steroidal Allergy Rash/Hives Verified 08/25/23 10:34 Anti-Inflamma tetracycline Allergy Rash/Hives Verified 08/25/23 10:34 Physical Exam Vitals: Vital Signs Temp Pulse Resp BP Pulse Ox FiO2 08/25/23 18:13 111 H 21 98/60 94 L 08/25/23 17:45 105 H 31 H 95/74 93 L 08/25/23 17:00 94 34 H 106/70 95 08/25/23 16:00 92 21 98/68 92 L 08/25/23 15:46 98 08/25/23 15:38 96 50 08/25/23 15:00 96 20 101/56 90 L 08/25/23 14:00 94 22 77/50 90 L 08/25/23 13:52 92 L 08/25/23 12:30 101 H 87/62 08/25/23 12:00 101 H 27 H 111/80 93 L 08/25/23 11:30 102 H 32 H 92/60 94 L 08/25/23 11:26 50 08/25/23 11:00 120 H 21 99/68 94 L 08/25/23 10:00 100 21 98/68 94 L 08/25/23 09:41 115 H 30 H 109/84 90 L 08/25/23 08:04 60 08/25/23 08:00 98.2 F 133 H 38 H 112/53 93 L 08/25/23 07:39 126 H 34 H 103/84 93 L 08/25/23 06:06 100.0 F H 08/25/23 05:00 137 H 32 H 119/83 93 L 08/25/23 04:13 60 08/25/23 03:08 128 H 37 H 113/91 96 08/25/23 01:10 123 H 33 H 104/79 92 L 08/25/23 00:59 60 08/25/23 00:41 112 H 106/68 97 08/24/23 23:44 122 H 32 H 98/76 98 08/24/23 23:41 100 08/24/23 22:50 130 H 33 H 120/80 100 08/24/23 21:31 100 08/24/23 21:00 140 H 28 H 145/95 95 Intake and Output 08/25/23 08/25/23 08/25/23 06:59 14:59 22:59 Output Total 1150 Balance -1150 Output: Urine 1150 Other: Weight 130.635 kg Results 08/24/23 21:34 08/24/23 22:38 Cardiac Enzymes 08/24/23 08/24/23 08/24/23 Range/Units 21:34 22:38 23:31 AST 28 (14-36) U/L Troponin I <0.012 <0.012 (0.000-0.034) ng/mL 08/25/23 Range/Units 02:28 AST (14-36) U/L Troponin I <0.012 (0.000-0.034) ng/mL Coagulation 08/24/23 Range/Units 21:34 PT 11.6 (10.0-12.5) sec APTT 25.4 (22.0-30.0) sec Lipids 08/25/23 Range/Units 02:28 Triglycerides 133.00 (0.00-149.00) mg/dL Cholesterol 141.00 (0.00-200.00) mg/dL HDL Cholesterol 51.40 (40.00-60.00) mg/dL Cholesterol/HDL Ratio 2.74 Ratio CBC 08/24/23 Range/Units 21:34 WBC 11.1 H (3.8-10.6) k/uL RBC 4.59 (3.80-5.40) m/uL Hgb 12.2 (11.4-16.0) gm/dL Hct 41.1 (34.0-46.0) % Plt Count 271 (150-450) k/uL Comprehensive Metabolic Panel 08/24/23 Range/Units 22:38 Sodium 137 (137-145) mmol/L Potassium 4.3 (3.5-5.1) mmol/L Chloride 96 L (98-107) mmol/L Carbon Dioxide 37 H (22-30) mmol/L BUN 27 H (7-17) mg/dL Creatinine 0.61 (0.52-1.04) mg/dL Glucose 121 H (74-99) mg/dL Calcium 8.9 (8.4-10.2) mg/dL AST 28 (14-36) U/L ALT 31 (4-34) U/L Alkaline Phosphatase 99 (38-126) U/L Total Protein 6.3 (6.3-8.2) g/dL Albumin 3.7 (3.5-5.0) g/dL Current Medications Generic Name Dose Route Start Last Admin Trade Name Freq PRN Reason Stop Dose Admin Acetaminophen 650 mg 08/24/23 23:17 08/25/23 05:54 Acetaminophen Tab 325 Mg Tab PO 650 mg Q4HR PRN Administration Mild Pain or Fever > 100.5 Hydrocodone Bitart/Acetaminophen 1 each 08/25/23 09:00 08/25/23 17:10 Hydrocodone/Apap 10-325mg 1 Each Tab PO 1 each TID SHAWNA Administration Albuterol/Ipratropium 3 ml 08/25/23 08:00 08/25/23 15:37 Ipratropium-Albuterol 3 Ml Neb INHALATION 3 ml RT-QID SHAWNA Administration Apixaban 5 mg 08/25/23 09:00 08/25/23 09:44 Apixaban 5 Mg Tab PO 5 mg BID SHAWNA Administration Protocol Atorvastatin Calcium 40 mg 08/25/23 21:00 Atorvastatin 40 Mg Tab PO HS SHAWNA Dapagliflozin 10 mg 08/26/23 09:00 Dapagliflozin Propanediol 10 Mg Tablet PO DAILY [facility] Diltiazem HCl 30 mg 08/25/23 13:00 08/25/23 17:47 Diltiazem Oral 30 Mg Tab PO 30 mg QID SHAWNA Administration Folic Acid 1 mg 08/25/23 09:00 08/25/23 09:44 Folic Acid 1 Mg Tab PO 1 mg DAILY SHAWNA Administration Furosemide 40 mg 08/25/23 21:00 Furosemide 10 Mg/Ml 4 Ml Vial IV Q12HR SHAWNA Gabapentin 300 mg 08/25/23 09:00 08/25/23 09:45 Gabapentin 300 Mg Cap PO 300 mg BID SHAWNA Administration Guaifenesin 1,200 mg 08/25/23 09:00 08/25/23 09:44 Guaifenesin 600 Mg Tablet.Er PO 1,200 mg Q12HR SHAWNA Administration Lisinopril 5 mg 08/25/23 09:00 08/25/23 14:28 Lisinopril 5 Mg Tab PO Not Given DAILY SHAWNA Metoprolol Tartrate 100 mg 08/25/23 09:00 08/25/23 09:44 Metoprolol Tartrate 50 Mg Tab PO 100 mg BID SHAWNA Administration Mirtazapine 15 mg 08/25/23 21:00 Mirtazapine 15 Mg Tab PO HS SHAWNA Montelukast Sodium 10 mg 08/25/23 21:00 Montelukast 10 Mg Tab PO HS SHAWNA Naloxone HCl 0.2 mg 08/24/23 23:17 Naloxone 0.4 Mg/Ml 1 Ml Vial IVP Q2M PRN Opioid Reversal Nitroglycerin 0.4 mg 08/24/23 23:20 Nitroglycerin Sl Tabs 0.4 Mg Tab SUBLINGUAL Q5M PRN Chest Pain Pantoprazole Sodium 40 mg 08/25/23 09:00 08/25/23 09:44 Pantoprazole 40 Mg Tablet PO 40 mg DAILY SHAWNA Administration Prednisone 40 mg 08/25/23 09:00 08/25/23 09:44 Prednisone 20 Mg Tab PO 08/29/23 09:01 40 mg DAILY SHAWNA Administration Spironolactone 25 mg 08/25/23 09:00 08/25/23 14:28 Spironolactone 25 Mg Tab PO Not Given DAILY SHAWNA Intake and Output 08/25/23 08/25/23 08/25/23 06:59 14:59 22:59 Output Total 1150 Balance -1150 Output: Urine 1150 Other: Weight 130.635 kg Patient Weight 08/26/23 06:59 Weight 130.635 kg 08/24/23 21:34 08/24/23 22:38
--- NOTE | 2023-08-25 20:07 | CA ---
Transthoracic Echo Report Name: Viola Fernandez Age: 57 Gender: F : 1965 Exam Date: 08/25/2023 12:32 Exam Location: [facility] Ht (in): 63 Wt (lb): 288 Ordering Physician: Jarrett Solano MD ([email or web address]) Attending/Referring Phys: Top Trimmer Anne Marie Macias RCS Procedure CPT: Indications: chf Cardiac Hx: Technical Quality: Technically difficult study Contrast 1: Definity Total Dose (mL): 2 Contrast 2: Total Dose (mL): MEASUREMENTS (Male / Female) Normal Values 2D ECHO LV Diastolic Volume MOD BP 100.0 cm??? 67 - 155 / 56 - 104 cm??? LV Systolic Volume MOD BP 45.8 cm??? 22 - 58 / 19 - 49 cm??? LV Ejection Fraction MOD BP 54.1 % >= 55 % LV Cardiac Index MOD BP 2236.7 cm???/min???m??? LV Diastolic Volume MOD 4C 96.3 cm??? LV Systolic Volume MOD 4C 40.5 cm??? LV Ejection Fraction MOD 4C 57.9 % LV Cardiac Index MOD 4C 2305.5 cm???/min???m??? LV Diastolic Length 4C 8.5 cm LV Systolic Length 4C 7.6 cm LV Diastolic Volume MOD 2C 104.4 cm??? LV Systolic Volume MOD 2C 45.5 cm??? LV Ejection Fraction MOD 2C 56.4 % LV Cardiac Index MOD 2C 2430.8 cm???/min???m??? LV Diastolic Length 2C 8.5 cm LV Systolic Length 2C 6.6 cm FINDINGS Left Ventricle Left ventricular ejection fraction is estimated at 50-55 % with beat to beat variability. Mildly decreased left ventricular ejection fraction. No obvious regional wall motion abnormalities. Right Ventricle Mild right ventricular dilatation by visual. Right Atrium Right atrial dilatation by visual. Left Atrium Left atrial dilatation by visual. Mitral Valve Mitral valve thickened. No evidence for mitral valve prolapse. No mitral stenosis. Mild mitral regurgitation. Aortic Valve Aortic valve not well visualized. No aortic stenosis. No aortic regurgitation. Tricuspid Valve Structurally normal tricuspid valve. No tricuspid stenosis. Trace tricuspid regurgitation. Pulmonic Valve Pulmonic valve not well visualized. Pericardium No pericardial effusion. Aorta Aortic root and proximal ascending aorta not well visualized. CONCLUSIONS Left ventricular ejection fraction is estimated at 50-55 % with beat to beat variability. No obvious regional wall motion abnormalities. RV appears dilated visually Mild mitral regurgitation. No pericardial effusion. Previewed by: Dr Jarrett Solano (Electronically Signed) Final Date: 25 August 2023 20:06
[2023-08-25] MEDS: ATORVASTATIN 40 MG TAB PO SCH (20:31)
[2023-08-25] MEDS: MIRTAZAPINE 15 MG TAB PO SCH (20:31)
[2023-08-25] MEDS: MONTELUKAST 10 MG TAB PO SCH (20:32)
[2023-08-26] MEDS: FUROSEMIDE 10 MG/ML 10 ML VIAL IV STA (06:55)
[2023-08-26 07:29] LABS: ABG Base Excess 12.7 mmol/L; ABG HCO3 38 mmol/L (21-25); ABG Oxygen Saturation 91.5 % (94-97); ABG PCO2 67 mmHg (35-45); ABG PH 7.36 (7.35-7.45); ABG PO2 67 mmHg (83-108); ABG TCO2 40 mmol/L (19-24); Allen Test Performed? Yes
[2023-08-26] MEDS ORDERED: IPRATROPIUM-ALBUTEROL 3 ML NEB ONE (07:52)
[2023-08-26] MEDS: DAPAGLIFLOZIN PROPANEDIOL 10 MG TABLET PO SCH (08:33)
[2023-08-26] MEDS: DEXTROSE 5% IN WATER 100 ML with AMIODARONE 150 MG IV ONE (08:48)
--- NOTE | 2023-08-26 08:52 | P.PN ---
Subjective Progress Note Date: 08/26/23 Progress note August 26, 2023, Hospital day 2 This morning patient is in respiratory distress. She is placed on BiPAP because she has been hypoxic. She appears mildly volume overloaded with bilateral lower extremity swelling and mild crackles in lung. She continues to be in atrial fibrillation with her heart rate in 130s while she is in respiratory distress. For this amiodarone was added by pulmonary team. I agree with that at this time. HISTORY OF PRESENTING ILLNESS Patient with past medical history of chronic atrial fibrillation, diastolic heart failure who has had multiple hospital admissions in the last 3 months. She was last admitted to the hospital 1 week ago and was discharged 3 days ago. During that hospital admission she was treated for atrial fibrillation with RVR and diastolic heart failure exacerbation with IV diuretics. Last admission her beta-sara was increased and her Cardizem was discontinued. She was started on Aldactone and was discharged home on Lasix. She also has past medical history of obesity hypoventilation syndrome, COPD, This time she presented to the hospital because of increased shortness of breath, palpitations, and reduced energy levels. Admission she was noticed to be in atrial fibrillation with RVR with heart rates in 130s to 140s beats per minute. Chest x-ray was a poor quality image but did show mild pulmonary congestion in bilateral lung hess. REVIEW OF SYSTEMS 14 point review of system is negative except what is mentioned above in HPI. PHYSICAL EXAMINATION Vital signs reviewed. 106/70, heart rate 94 Neck: Brisk carotid upstroke, elevated jugular venous distention. Lungs: Diminished breath sounds, poor inspiratory effort, crackles in bilateral lung hess Heart: Irregularly irregular pulse, S1-S2 audible, no murmurs Abdomen: Soft nontender,. Extremities: 1+ bilateral lower extremity edema Neuro: Alert, oritented, no focal deficits. Detailed neuro exam was not performed. ASSESSMENT Acute hypoxic respiratory failure Persistent atrial fibrillation, currently RVR. HFpEF exacerbation CAD 2021 treated in [place]. Anatomy unknown Chronic hypercapnia with obesity hypoventilation syndrome and AUTUMN on CPAP Morbid obesity PLAN Seems like patient was first noticed to have atrial fibrillation 2 years ago when she had AR treated at [place]. Patient reported that she has been on and off in atrial fibrillation since. But since May 2023 it seems she has been in persistent atrial fibrillation. In May she was admitted with RSV pneumonia and then she got admitted in June and then now in July again with shortness of breath tachypnea and tachycardia. Currently she has mild pulmonary congestion. Is difficult to tell if patient's respiratory distress is driven by atrial fibrillation. For last 3 months she has been managed on rate control strategy. IV Lasix 40 mg twice daily Continue Aldactone 25 mg daily Increase metoprolol to 100 mg twice daily Add Cardizem 30 mg 4 times daily. Add Farxiga 10 mg daily Agree with amiodarone IV drip for rhythm control and see if converting her to sinus would improve her HFpEF and reduce her exacerbations and hospital admissions. Discontinue midodrine Continue lisinopril 5 mg daily. On discharge make sure she goes home on Farxiga. If you have further difficulty in controlling patient's heart rate and patient has frequent relapses, she would need A-fib ablation evaluation. Continue BiPAP support. Objective - Vital Signs Vital signs: Vital Signs Temp 100.0 F H 08/26/23 08:26 Pulse 130 H 08/26/23 08:38 Resp 34 H 08/26/23 08:26 BP 101/71 08/26/23 08:26 Pulse Ox 88 L 08/26/23 08:26 FiO2 60 08/26/23 08:26 Intake & Output 08/25/23 08/26/23 08/26/23 18:59 06:59 18:59 Intake Total 240 Output Total 1150 900 Balance -1150 -660 Weight 130.635 kg 119 kg Intake: Oral 240 Output: Urine 1150 900 Other: Voiding Method External Catheter - Labs CBC & Chem 7: 08/24/23 21:34 08/24/23 22:38 Labs: Abnormal Lab Results - Last 24 Hours (Table) 08/26/23 Range/Units 07:26 ABG pCO2 67 H (35-45) mmHg ABG pO2 67 L (83-108) mmHg ABG HCO3 38 H (21-25) mmol/L ABG Total CO2 40 H (19-24) mmol/L ABG O2 Saturation 91.5 L (94-97) %
[2023-08-26] MEDS: AMIODARONE 360 MG in DEXTROSE 5% IN WATER 200 ML IV ONE (09:21)
--- NOTE | 2023-08-26 09:51 | XR ---
EXAMINATION TYPE: XR chest 1V portable DATE OF EXAM: 08/26/2023 COMPARISON: 08/15/2023 INDICATION: CHF TECHNIQUE: Single frontal view of the chest is obtained. FINDINGS: The heart size is upper limits. The pulmonary vasculature is mildly prominent. Bibasilar infiltrates are present. Correlate for atelectasis or pneumonia. Atypical pneumonia could b e considered. IMPRESSION: 1. Bibasilar infiltrates. Correlate for pneumonia. Atypical pulmonary edema could be considered.
[2023-08-26 10:08] LABS: Anisocytosis Slight; Basophils % (A) 0 %; Eosinophils % (A) 0 %; HCT 37.8 % (34.0-46.0); HGB 11.1 gm/dL (11.4-16.0); Hypochromasia Marked; Lymphocytes # (A) 0.3 k/uL (1.0-4.8); Lymphocytes % (A) 3 %; MCH 27.3 pg (25.0-35.0); MCHC 29.2 g/dL (31.0-37.0); MCV 93.3 fL (80.0-100.0); Mean Platelet Volume 8.8; Monocytes # (A) 0.4 k/uL (0-1.0); Monocytes % (A) 5 %; Neutrophils # (A) 8.9 k/uL (1.3-7.7); Neutrophils % (A) 91 %; Platelet Count 233 k/uL (150-450); RBC 4.06 m/uL (3.80-5.40); WBC 9.8 k/uL (3.8-10.6)
[2023-08-26 10:28] LABS: ALT 27 U/L (4-34); AST 41 U/L (14-36); African American GFR (CKD) >90 (>60 ml/min/1.73 sqM); Albumin 3.4 g/dL (3.5-5.0); Alkaline Phosphatase 120 U/L (38-126); Anion Gap 8 mmol/L; Blood Urea Nitrogen 32 mg/dL (7-17); Calcium 8.5 mg/dL (8.4-10.2); Carbon Dioxide 33 mmol/L (22-30); Chloride 93 mmol/L (98-107); Glucose 148 mg/dL (74-99); Non-African American GFR(CKD) >90 (>60 ml/min/1.73 sqM); Sodium 134 mmol/L (137-145); Total Bilirubin 0.9 mg/dL (0.2-1.3); Total Protein 6.1 g/dL (6.3-8.2)
[2023-08-26] MEDS: IPRATROPIUM-ALBUTEROL 3 ML NEB INHALATION PRN (11:43)
--- NOTE | 2023-08-26 13:05 | P.PN ---
Subjective Progress Note Date: 08/26/23 Patient is a 57-year-old female with a past medical history of CAD with stenting, chronic diastolic heart failure, hypertension, hyperlipidemia, chronic atrial fibrillation on anticoagulation with Eliquis, type II [id number] diabetes mellitus, chronic venous stasis dermatitis with chronic bilateral lower extremity edema, severe obstructive sleep apnea CPAP dependent, and chronic hypoxic respiratory failure secondary to advanced COPD home oxygen dependent 3 L presented to the ER for worsening shortness of breath. Patient was only discharged on hospital day ago, patient stated she was all right till today when in the afternoon started noticing that her breathing was getting worse. Patient was complaining of her heart beating fast and her chest feeling tight. Patient complains of shortness of breath at rest and on exertion as well. Patient denies any fever or chills. There is no complaint of orthopnea or PND. Because of these worsening symptoms, patient called EMS and she was brought to the ER Initial lab work done in the ER showed WBC 11.1, hemoglobin 12.2, platelet count 271, sodium 137, potassium 4.3, BUN 27, creatinine 0.61, lactate 1.4, troponin 0.012, proBNP 5490 EKG done in the ER showed heart rate of 114, QRS 81, irregular rate and rhythm, no ST segment elevation or depression seen, no T-wave inversions seen. Chest x-ray done in the ER moderate to severe CHF Patient admitted to internal medicine service 08/25. Patient seen and examined. Patient was in respiratory distress overnight, continues to be in A-fib with rapid ventricular rate, was started on amiodarone drip. Currently on BiPAP with FiO2 60% REVIEW OF SYSTEMS: CONSTITUTIONAL: No fever, no malaise,. CARDIOVASCULAR: No chest pain, no palpitations, no syncope. PULMONARY: As mentioned above GASTROINTESTINAL: No diarrhea, no nausea, no vomiting, no abdominal pain. NEUROLOGICAL: No headaches, no weakness, PHYSICAL EXAMINATION: GENERAL: The patient is alert and oriented x3, currently on BiPAP HEENT: Pupils are round and equally reacting to light. EOMI. No scleral icterus. No conjunctival pallor. Normocephalic, atraumatic. No pharyngeal erythema. No th yromegaly. CARDIOVASCULAR: S1 and S2 present. No murmurs, rubs, or gallops. Irregular rate and rhythm PULMONARY: Coarse breath sounds bilaterally, bilateral crackles audible ABDOMEN: Soft, nontender, nondistended, normoactive bowel sounds. No palpable organomegaly. MUSCULOSKELETAL: No joint swelling or deformity. EXTREMITIES: 1+ pitting edema NEUROLOGICAL: Gross neurological examination did not reveal any focal deficits. SKIN: No rashes. Assessment and plan Acute on chronic hypoxic respiratory failure Acute on chronic diastolic heart failure exacerbation COPD with chronic oxygen dependency, baseline 3-4 L at all times Severe obstructive sleep apnea. Atrial fibrillation with RVR in pt with Chronic atrial fibrillation on anticoagulation with Eliquis CAD with previous stent Hypertension Hyperlipidemia Bilateral lower extremity edema with venous stasis dermatitis. Type II [id number] diabetes mellitus with hemoglobin A1c of 7%. Morbid obesity with BMI of 50.8 kg/m Monitor vital signs Monitor CBC Monitor CMP Continue telemetry monitoring Continue oxygen supplementation Continue use of CPAP nightly. Strict I's and O's, daily weights Continue IV Lasix 40 mg twice daily Patient started on amnio drip overnight. Continue Aldactone 25 mg daily Increase metoprolol to 100 mg twice daily Add Cardizem 30 mg 4 times daily. Add Farxiga 10 mg daily Continue breathing treatments with DuoNeb Neurology following Pulmonology following Labs and medication were reviewed.. Continue same treatment. Continue with symptomatic treatment. Resume home medication. Monitor labs and vitals. DVT and GI prophylaxis. Further recommendations as per clinical course of the patient Dictation was produced using [employer] dictation software. please excuse any grammatical, word or spelling errors. Objective - Vital Signs Vital signs: Vital Signs Temp 100.0 F H 08/26/23 08:26 Pulse 128 H 08/26/23 08:49 Resp 34 H 08/26/23 08:26 BP 101/71 08/26/23 08:26 Pulse Ox 88 L 08/26/23 08:26 FiO2 60 08/26/23 08:26 Intake & Output 08/25/23 08/26/23 08/26/23 18:59 06:59 18:59 Intake Total 240 Output Total 1150 900 Balance -1150 -660 Weight 130.635 kg 119 kg Intake: Oral 240 Output: Urine 1150 900 Other: Voiding Method External Catheter - Labs CBC & Chem 7: 08/26/23 09:36 08/26/23 09:36 Labs: Abnormal Lab Results - Last 24 Hours (Table) 03/31/24 Range/Units 07:26 ABG pCO2 67 H (35-45) mmHg ABG pO2 67 L (83-108) mmHg ABG HCO3 38 H (21-25) mmol/L ABG Total CO2 40 H (19-24) mmol/L ABG O2 Saturation 91.5 L (94-97) %
--- NOTE | 2023-08-26 13:40 | P.PN ---
Subjective Progress Note Date: 08/26/23 Principal diagnosis: Acute on chronic hypoxemic respiratory failure secondary to an acute exacerbation of diastolic congestive heart failure with mild increasing interstitial edema This is a 57-year-old female familiar to our service, patient has been recently admitted and discharged, we saw her on consultation for her COPD and obesity hypoventilation syndrome, with chronic hypoxic respiratory failure, patient however has been recently admitted with atrial fibrillation RVR, and pulmonary edema related to her atrial fibrillation with RVR. She was just discharged 3 days ago by cardiology, patient was readmitted this time with a similar presentation mostly shortness of breath, atrial fibrillation with RVR, and requiring BiPAP treatment upon admission mostly because of her hypoxia and hypercapnia. Patient is morbidly obese, and I saw her again today in the morning for her shortness of breath. Patient was noted to be on BiPAP, 14/6/60%, and her O2 saturation was in the 90s. Patient was hemodynamically stable, her rate seems to be poorly controlled, and cardiology is to address her cardiac arrhythmia/atrial fibrillation with RVR looking back at this patient's h istory, she is 57 years old with known history of coronary artery disease and stenting, chronic diastolic congestive heart failure, hypertension, chronic atrial fibrillation on Eliquis, non-insulin dependent diabetes, history of chronic venous stasis changes, history of COPD, obstructive sleep apnea syndrome, obesity hypoventilation syndrome, and again as noted above patient had multiple admissions with similar presentation to the hospital Chest x-ray on this admission clearly showed evidence of moderate to severe congestive heart failure Patient was reevaluated today on 08/26/2023, remains on BiPAP, 16/6/60%, patient continues to have some shortness of breath and intermittent episodes of cough. Chest x-ray is showing improvement in her pulmonary edema, doubt underlying pneumonia. Her atrial fibrillation seems to be better controlled. ABG earlier this morning showed a pO2 of 67 pCO2 67 pH of 7.36 WBC count is 9.8 hemoglobin 11.1 basic metabolic profile is normal, renal profile is normal Objective - Vital Signs Vital signs: Vital Signs Temp 98.4 F 08/26/23 13:06 Pulse 97 08/26/23 13:06 Resp 18 08/26/23 13:06 BP 94/61 08/26/23 13:06 Pulse Ox 88 L 08/26/23 08:26 FiO2 65 08/26/23 13:06 Intake & Output 08/25/23 08/26/23 08/26/23 18:59 06:59 18:59 Intake Total 240 Output Total 1150 900 700 Balance -1150 -660 -700 Weight 130.635 kg 119 kg Intake: Oral 240 Output: Urine 1150 900 700 Other: Voiding Method External Catheter External Catheter - Exam GENERAL EXAM: Reveals a 57-year-old female obese, on BiPAP, in no distress HEAD: Normocephalic. EYES: Normal reaction of pupils, equal size. NOSE: Clear with pink turbinates. THROAT: No erythema or exudates. Crowding of the posterior pharynx NECK: Short. No masses, no JVD. CHEST: No chest wall deformity. LUNGS: Crackles at the bases bilaterally. CVS: S1 and S2 normal with no audible murmur, regular rhythm. ABDOMEN: Obesity, unable to appreciate any hepatosplenomegaly, normal bowel sounds, no guarding or rigidity. SKIN: No rashes CENTRAL NERVOUS SYSTEM: Alert oriented x 3 no gross focal deficit Psychiatric: Normal mood affect and no mental status examination EXTREMITIES: 1+ bipedal edema. No clubbing, no cyanosis. Peripheral pulses are intact. - Labs CBC & Chem 7: 08/26/23 09:36 08/26/23 09:36 Labs: Abnormal Lab Results - Last 24 Hours (Table) 08/26/23 08/26/23 08/26/23 Range/Units 07:26 09:36 09:36 Hgb 11.1 L (11.4-16.0) gm/dL MCHC 29.2 L (31.0-37.0) g/dL RDW 18.0 H (11.5-15.5) % Neutrophils # 8.9 H (1.3-7.7) k/uL Lymphocytes # 0.3 L (1.0-4.8) k/uL ABG pCO2 67 H (35-45) mmHg ABG pO2 67 L (83-108) mmHg ABG HCO3 38 H (21-25) mmol/L ABG Total CO2 40 H (19-24) mmol/L ABG O2 Saturation 91.5 L (94-97) % Sodium 134 L (137-145) mmol/L Chloride 93 L (98-107) mmol/L Carbon Dioxide 33 H (22-30) mmol/L BUN 32 H (7-17) mg/dL Glucose 148 H (74-99) mg/dL AST 41 H (14-36) U/L Total Protein 6.1 L (6.3-8.2) g/dL Albumin 3.4 L (3.5-5.0) g/dL Assessment and Plan Assessment: Impression: Chronic atrial fibrillation however the patient presented now with atrial fibrillation and RVR most likely contributing to her pulmonary edema. Acute on chronic hypoxemic respiratory failure secondary to an acute exacerbation of diastolic congestive heart failure with mild increasing interstitial edema bilaterally in addition to increased lower extremity edema bilaterally. Acute on chronic hypercapnic respiratory failure Severe obstructive sleep apnea with an AHI of 41 and titrated to a CPAP pressure of 11 cm of water Childhood asthma and the patient reports that she was intubated in the past on multiple occasions as a child in [facility]. Morbid obesity with a BMI of 50.8 kg/m Prior history of significant tobacco use Multiple hospitalizations most recent of which was attributed to the right lower extremity cellulitis, treated with Keflex, most recent discharge July 27, 2023 MRSA in the sputum cultures on 07/03/2023 History of atrial fibrillation. History of hyperlipidemia History of hypertension History of coronary artery disease, with previous PCI/stent placement History of myocardial infarction Chronic anxiety/depression Poor overall functional performance based on the above-mentioned multiple comorbidities Recommendation: Continue BiPAP, titrate FiO2 accordingly Continue Lasix, patient on Lasix 40 mg IV push twice daily, I did order a dose of Lasix earlier this morning 60 mg IV push Resume home meds including beta-blockers and Eliquis Continue diuretics patient is on Lasix 40 mg IV push twice daily Continue bronchodilators and steroids Titrate BiPAP and FiO2 accordingly Will continue to follow Time with Patient: Less than 30
[2023-08-26] MEDS: AMIODARONE 450 MG in DEXTROSE 5% IN WATER 250 ML IV SCH (16:34)
[2023-08-26] MEDS: FLUTICASONE 50MCG/SPRAY NASAL 16GM EA NOSTRIL SCH (17:27)
[2023-08-27 08:28] LABS: Anisocytosis Slight; Basophils % (A) 0 %; Eosinophils % (A) 0 %; HCT 38.3 % (34.0-46.0); HGB 10.9 gm/dL (11.4-16.0); Hypochromasia Marked; Lymphocytes # (A) 0.4 k/uL (1.0-4.8); Lymphocytes % (A) 4 %; MCH 26.6 pg (25.0-35.0); MCHC 28.5 g/dL (31.0-37.0); MCV 93.3 fL (80.0-100.0); Mean Platelet Volume 9.2; Monocytes # (A) 0.4 k/uL (0-1.0); Monocytes % (A) 5 %; Neutrophils # (A) 7.9 k/uL (1.3-7.7); Neutrophils % (A) 90 %; Platelet Count 263 k/uL (150-450); RBC 4.11 m/uL (3.80-5.40); RDW 17.8 % (11.5-15.5); WBC 8.8 k/uL (3.8-10.6)
[2023-08-27 08:33] LABS: ALT 27 U/L (4-34); AST 47 U/L (14-36); African American GFR (CKD) 73 (>60 ml/min/1.73 sqM); Albumin 3.4 g/dL (3.5-5.0); Alkaline Phosphatase 133 U/L (38-126); Anion Gap 7 mmol/L; Blood Urea Nitrogen 44 mg/dL (7-17); Calcium 9.1 mg/dL (8.4-10.2); Carbon Dioxide 35 mmol/L (22-30); Chloride 91 mmol/L (98-107); Glucose 117 mg/dL (74-99); Non-African American GFR(CKD) 64 (>60 ml/min/1.73 sqM); Potassium 4.5 mmol/L (3.5-5.1); Sodium 133 mmol/L (137-145); Total Bilirubin 0.7 mg/dL (0.2-1.3); Total Protein 6.1 g/dL (6.3-8.2)
--- NOTE | 2023-08-27 09:44 | P.PN ---
Subjective Patient is a 57-year-old female with a past medical history of CAD with stenting, chronic diastolic heart failure, hypertension, hyperlipidemia, chronic atrial fibrillation on anticoagulation with Eliquis, type II [id number] ependent diabetes mellitus, chronic venous stasis dermatitis with chronic bilateral lower extremity edema, severe obstructive sleep apnea CPAP dependent, and chronic hypoxic respiratory failure secondary to advanced COPD home oxygen dependent 3 L presented to the ER for worsening shortness of breath. Patient was only discharged on hospital day ago, patient stated she was all right till today when in the afternoon started noticing that her breathing was getting worse. Patient was complaining of her heart beating fast and her chest feeling tight. Patient complains of shortness of breath at rest and on exertion as well. Patient denies any fever or chills. There is no complaint of orthopnea or PND. Because of these worsening symptoms, patient called EMS and she was brought to the ER Initial lab work done in the ER showed WBC 11.1, hemoglobin 12.2, platelet count 271, sodium 137, potassium 4.3, BUN 27, creatinine 0.61, lactate 1.4, troponin 0.012, proBNP 5490 EKG done in the ER showed heart rate of 114, QRS 81, irregular rate and rhythm, no ST segment elevation or depression seen, no T-wave inversions seen. Chest x-ray done in the ER moderate to severe CHF Patient admitted to internal medicine service 08/25. Patient seen and examined. Patient was in respiratory distress overnight, continues to be in A-fib with rapid ventricular rate, was started on amiodarone drip. Currently on BiPAP with FiO2 60% 08/27/2023 Patient today is awake and alert at baseline She still complaining from significant dyspnea, currently on BiPAP She remains on IV Lasix 40 mg twice daily, as well as her Eliquis and prednisone burst taper Amiodarone drip switched to oral amiodarone 400 mg today. Objective - Vital Signs Vital signs: Vital Signs Temp 97.8 F 08/27/23 08:00 Pulse 98 08/27/23 09:33 Resp 31 H 08/27/23 08:00 BP 99/66 08/27/23 08:00 Pulse Ox 94 L 08/27/23 08:00 FiO2 65 08/27/23 09:20 Intake & Output 08/26/23 08/27/23 08/27/23 18:59 06:59 18:59 Intake Total 467.782 118 Output Total 1000 Balance -1000 467.782 118 Weight 99.5 kg Intake: Intake, IV Titration 227.782 Amount Amiodarone 450 mg In 227.782 Dextrose 5% in Water 250 ml @ 0.5 MG/MIN 16.667 mls/hr IV .Q15H [facility] Rx#: [id number] Oral 240 118 Output: Urine 1000 Other: Voiding Method External Catheter External Catheter External Catheter # Voids 200 - Exam -GENERAL: The patient is alert and oriented x3, not in any acute distress. Obese . HEENT: Pupils are round and equally reacting to light. EOMI. No scleral icterus. No conjunctival pallor. Normocephalic, atraumatic. No pharyngeal erythema. No thyromegaly. CARDIOVASCULAR: S1 and S2 present. No murmurs, rubs, or gallops. PU-LMONARY: Chest is clear to auscultation, no wheezing , no crackles. decreased air entry on both sides. ABDOMEN: Soft, nontender, nondistended, normoactive bowel sounds. No palpable organomegaly. MUSCULOSKELETAL: No joint swelling or deformity. EXTREMITIES: No cyanosis, clubbing, or pedal edema. NEUROLOGICAL: Gross neurological examination did not reveal any focal deficits. SKIN: No rashes. no petechiae. - Labs CBC & Chem 7: 08/27/23 07:47 08/27/23 07:47 Labs: Abnormal Lab Results - Last 24 Hours (Table) 08/26/23 08/26/23 08/27/23 Range/Units 09:36 09:36 07:47 Hgb 11.1 L 10.9 L (11.4-16.0) gm/dL MCHC 29.2 L 28.5 L (31.0-37.0) g/dL RDW 18.0 H 17.8 H (11.5-15.5) % Neutrophils # 8.9 H 7.9 H (1.3-7.7) k/uL Lymphocytes # 0.3 L 0.4 L (1.0-4.8) k/uL Sodium 134 L (137-145) mmol/L Chloride 93 L (98-107) mmol/L Carbon Dioxide 33 H (22-30) mmol/L BUN 32 H (7-17) mg/dL Glucose 148 H (74-99) mg/dL AST 41 H (14-36) U/L Alkaline Phosphatase (38-126) U/L Total Protein 6.1 L (6.3-8.2) g/dL Albumin 3.4 L (3.5-5.0) g/dL 08/27/23 Range/Units 07:47 Hgb (11.4-16.0) gm/dL MCHC (31.0-37.0) g/dL RDW (11.5-15.5) % Neutrophils # (1.3-7.7) k/uL Lymphocytes # (1.0-4.8) k/uL Sodium 133 L (137-145) mmol/L Chloride 91 L (98-107) mmol/L Carbon Dioxide 35 H (22-30) mmol/L BUN 44 H (7-17) mg/dL Glucose 117 H (74-99) mg/dL AST 47 H (14-36) U/L Alkaline Phosphatase 133 H (38-126) U/L Total Protein 6.1 L (6.3-8.2) g/dL Albumin 3.4 L (3.5-5.0) g/dL Assessment and Plan Assessment: Acute on chronic hypoxic respiratory failure Acute on chronic diastolic heart failure exacerbation COPD with chronic oxygen dependency, baseline 3-4 L at all times Severe obstructive sleep apnea. Atrial fibrillation with RVR in pt with Chronic atrial fibrillation on anticoagulation with Eliquis CAD with previous stent Hypertension Hyperlipidemia Bilateral lower extremity edema with venous stasis dermatitis. Type II [id number] diabetes mellitus with hemoglobin A1c of 7%. Morbid obesity with BMI of 50.8 kg/m Plan: Continue with IV Lasix 40 mg twice daily Continue with Eliquis 5 mg Patient on prednisone taper Cardiology and pulmonary team consult Labs and medication were reviewed.. Continue same treatment. Continue with symptomatic treatment. Resume home medication. Monitor labs and vitals. DVT and GI prophylaxis. Further recommendations as per clinical course of the patient DVT prophylaxis: Eliquis GI Prophylaxis: Pepcid PT/OT: Pending Prognosis is guarded
[2023-08-27] MEDS: AMIODARONE 200 MG TAB PO SCH (10:14)
[2023-08-27] MEDS: FLUoxetine HCL 20 MG CAP PO SCH (11:57)
--- NOTE | 2023-08-27 12:40 | P.PN ---
Subjective HISTORY OF PRESENT ILLNESS: Patient examined this morning at the bedside. Patient currently denies chest pain or pressure. She reports shortness of breath this morning. She remains on BiPAP at the time of examination. Patient is receiving IV diuretics. She also reports a frequent cough. Telemetry reveals atrial fibrillation with heart rate in the 80s. She is currently on IV amiodarone PHYSICAL EXAM: VITAL SIGNS: Reviewed. GENERAL: Well-developed in no acute distress. NECK: Supple. No JVD or thyromegaly LUNGS: Respirations even and unlabored. Lungs diminished with bilateral rhonchi HEART: Regular rate and rhythm. S1 and S2 heard. EXTREMITIES: Normal range of motion. No clubbing or cyanosis. Peripheral pulses intact. 1+ bilateral lower extremity edema ASSESSMENT: Shortness of breath Acute on chronic hypoxic respiratory failure requiring BiPAP Acute COPD exacerbation Acute on chronic heart failure with preserved EF, 50 to 55% Persistent atrial fibrillation Coronary artery disease with previous PCI, details unknown Hypertension Hyperlipidemia Former nicotine dependence Morbid obesity PLAN: Discontinue IV amiodarone. Begin oral amiodarone 400 mg twice a day Continue current dose of metoprolol Continue current dose of oral Cardizem. Unable to increase at this time secondary to soft blood pressures Continue telemetry monitoring Continue IV diuretics Daily weights, accurate intake and output, and monitoring of kidney function Further recommendations pending patient course Nurse practitioner note has been reviewed by physician. Signing provider agrees with the documented findings, assessment, and plan of care documented by [employer] as a scribe. Objective - Vital Signs Vital signs: Vital Signs Temp 97.8 F 08/27/23 08:00 Pulse 98 08/27/23 12:27 Resp 26 H 08/27/23 12:21 BP 110/66 08/27/23 12:21 Pulse Ox 92 L 08/27/23 12:21 FiO2 65 08/27/23 12:21 Intake & Output 08/26/23 08/27/23 08/27/23 18:59 06:59 18:59 Intake Total 467.782 838 Output Total 1000 500 Balance -1000 467.782 338 Weight 99.5 kg Intake: Intake, IV Titration 227.782 Amount Amiodarone 450 mg In 227.782 Dextrose 5% in Water 250 ml @ 0.5 MG/MIN 16.667 mls/hr IV .Q15H [facility] Rx#: [id number] Oral 240 838 Output: Urine 1000 500 Other: Voiding Method External Catheter External Catheter External Catheter # Voids 200 - Labs CBC & Chem 7: 08/27/23 07:47 08/27/23 07:47 Labs: Abnormal Lab Results - Last 24 Hours (Table) 08/27/23 08/27/23 08/27/23 Range/Units 07:47 07:47 07:47 Hgb 10.9 L (11.4-16.0) gm/dL MCHC 28.5 L (31.0-37.0) g/dL RDW 17.8 H (11.5-15.5) % Neutrophils # 7.9 H (1.3-7.7) k/uL Lymphocytes # 0.4 L (1.0-4.8) k/uL Sodium 133 L (137-145) mmol/L Chloride 91 L (98-107) mmol/L Carbon Dioxide 35 H (22-30) mmol/L BUN 44 H (7-17) mg/dL Glucose 117 H (74-99) mg/dL AST 47 H (14-36) U/L Alkaline Phosphatase 133 H (38-126) U/L Total Protein 6.1 L (6.3-8.2) g/dL Albumin 3.4 L (3.5-5.0) g/dL Procalcitonin 0.54 H (0.02-0.09) ng/mL
--- NOTE | 2023-08-27 13:35 | P.PN ---
Subjective Progress Note Date: 08/27/23 Principal diagnosis: COPD exacerbation. Acute on chronic hypoxemic respiratory failure secondary to an acute exacerbation of diastolic congestive heart failure with mild increasing interstitial edema This is a 57-year-old female familiar to our service, patient has been recently admitted and discharged, we saw her on consultation for her COPD and obesity hypoventilation syndrome, with chronic hypoxic respiratory failure, patient however has been recently admitted with atrial fibrillation RVR, and pulmonary edema related to her atrial fibrillation with RVR. She was just discharged 3 days ago by cardiology, patient was readmitted this time with a similar presentation mostly shortness of breath, atrial fibrillation with RVR, and requiring BiPAP treatment upon admission mostly because of her hypoxia and hypercapnia. Patient is morbidly obese, and I saw her again today in the morning for her shortness of breath. Patient was noted to be on BiPAP, 14/6/60%, and her O2 saturation was in the 90s. Patient was hemodynamically stable, her rate seems to be poorly controlled, and cardiology is to address her cardiac arrhythmia/atrial fibrillation with RVR looking back at this patient's history, she is 57 years old with known history of coronary artery disease and stenting, chronic diastolic congestive heart failure, hypertension, chronic atrial fibrillation on Eliquis, non-insulin dependent diabetes, history of chronic venous stasis changes, history of COPD, obstructive sleep apnea syndrome, obesity hypoventilation syndrome, and again as noted above patient had multiple admissions with similar presentation to the hospital Chest x-ray on this admission clearly showed evidence of moderate to severe congestive heart failure Patient was reevaluated today on 08/26/2023, remains on BiPAP, 16/6/60%, patient continues to have some shortness of breath and intermittent episodes of cough. Chest x-ray is showing improvement in her pulmonary edema, doubt underlying pneumonia. Her atrial fibrillation seems to be better controlled. ABG earlier this morning showed a pO2 of 67 pCO2 67 pH of 7.36 WBC count is 9.8 hemoglobin 11.1 basic metabolic profile is normal, renal profile is normal Progress note dated August 27, 2023. 57-year-old female, seen today in room 361. The patient remains on BiPAP, with settings of 16/6, and 65%. The patient is now on oral amiodarone. She also continues on Eliquis. She is not receiving any IV fluids. Lab data today includes a white count of 8.8, hemoglobin 10.9, hematocrit 38.3, and a platelet count of 263,000. Sodium 133, potassium 4.5, chloride 71, CO2 35, BUN 44, creatinine 1.0. Glucose is 117. Procalcitonin level is 0.54. Blood gases yesterday, on FiO2 of 60% show pO2 of 67, pCO2 of 67, and a pH which is nearly normal at 7.36. Objective - Vital Signs Vital signs: Vital Signs Temp 97.8 F 08/27/23 08:00 Pulse 98 08/27/23 12:27 Resp 26 H 08/27/23 12:21 BP 110/66 08/27/23 12:21 Pulse Ox 92 L 08/27/23 12:21 FiO2 65 08/27/23 12:21 Intake & Output 08/26/23 08/27/23 08/27/23 18:59 06:59 18:59 Intake Total 467.782 838 Output Total 1000 500 Balance -1000 467.782 338 Weight 99.5 kg Intake: Intake, IV Titration 227.782 Amount Amiodarone 450 mg In 227.782 Dextrose 5% in Water 250 ml @ 0.5 MG/MIN 16.667 mls/hr IV .Q15H [facility] Rx#: [id number] Oral 240 838 Output: Urine 1000 500 Other: Voiding Method External Catheter External Catheter External Catheter # Voids 200 - Exam No acute distress, currently on BiPAP. HEENT examination is grossly unremarkable. Neck supple. Full range of motion. No adenopathy thyromegaly or neck vein distention. Cardiovascular examination reveals regular rhythm rate. S1-S2 normal. No S3 or S4. No discernible murmur noted. Heart rate 98 bpm. Heart sounds are distant. Lungs reveal expiratory wheezes and rhonchi. Breath sounds are equal. No crackles. Saturations are 92% on BiPAP. Abdomen, soft, with bowel sounds. No masses or tenderness. Extremities are intact. No cyanosis clubbing or edema. Skin is without rash or lesion. Neurologic examination is brief but nonfocal. - Labs CBC & Chem 7: 08/27/23 07:47 08/27/23 07:47 Labs: Abnormal Lab Results - Last 24 Hours (Table) 08/27/23 08/27/23 08/27/23 Range/Units 07:47 07:47 07:47 Hgb 10.9 L (11.4-16.0) gm/dL MCHC 28.5 L (31.0-37.0) g/dL RDW 17.8 H (11.5-15.5) % Neutrophils # 7.9 H (1.3-7.7) k/uL Lymphocytes # 0.4 L (1.0-4.8) k/uL Sodium 133 L (137-145) mmol/L Chloride 91 L (98-107) mmol/L Carbon Dioxide 35 H (22-30) mmol/L BUN 44 H (7-17) mg/dL Glucose 117 H (74-99) mg/dL AST 47 H (14-36) U/L Alkaline Phosphatase 133 H (38-126) U/L Total Protein 6.1 L (6.3-8.2) g/dL Albumin 3.4 L (3.5-5.0) g/dL Procalcitonin 0.54 H (0.02-0.09) ng/mL Assessment and Plan Assessment: Acute on chronic atrial fibrillation, with RVR, and pulmonary edema. Acute on chronic hypoxemic respiratory failure, multifactorial, part related to diastolic CHF, atrial fibrillation, and COPD. Acute on chronic hypercapnic respiratory failure. Severe obstructive sleep apnea syndrome, currently on CPAP. Childhood asthma. Morbid obesity. Prior history of significant tobacco use. Multiple hospitalizations for COPD, and right lower extremity cellulitis. Previous sputum cultures positive for methicillin-resistant Staph aureus. History of chronic atrial fibrillation. History of hyperlipidemia. History of hypertension. History of coronary artery disease, previous PCI/stent placement. History of myocardial infarction. Chronic anxiety/depression. General medical debility. Plan: Plan dated August 27, 2023. The patient is seen today in room 371. The patient is on oral amiodarone, and Eliquis. She is not receiving any IV fluids. She remains on BiPAP, with settings of 16/6, and 65%. We will continue to follow make recommendations along the way. The patient's overall prognosis remains very guarded. Labs, x- rays, and all medications are reviewed. Time with Patient: Less than 30
[2023-08-27] MEDS: FUROSEMIDE 10 MG/ML 4 ML VIAL IV SCH (16:12)
[2023-08-28 08:24] LABS: African American GFR (CKD) 25 (>60 ml/min/1.73 sqM); Anion Gap 9 mmol/L; Blood Urea Nitrogen 79 mg/dL (7-17); Calcium 8.7 mg/dL (8.4-10.2); Carbon Dioxide 31 mmol/L (22-30); Chloride 92 mmol/L (98-107); Glucose 103 mg/dL (74-99); Non-African American GFR(CKD) 21 (>60 ml/min/1.73 sqM); Sodium 132 mmol/L (137-145)
[2023-08-28 08:25] LABS: Potassium 5.5 mmol/L (3.5-5.1)
[2023-08-28] MEDS: FUROSEMIDE 40 MG TAB PO SCH (10:32)
--- NOTE | 2023-08-28 10:42 | P.PN ---
Subjective Patient is a 57-year-old female with a past medical history of CAD with stenting, chronic diastolic heart failure, hypertension, hyperlipidemia, chronic atrial fibrillation on anticoagulation with Eliquis, type II [id number] ependent diabetes mellitus, chronic venous stasis dermatitis with chronic bilateral lower extremity edema, severe obstructive sleep apnea CPAP dependent, and chronic hypoxic respiratory failure secondary to advanced COPD home oxygen dependent 3 L presented to the ER for worsening shortness of breath. Patient was only discharged on hospital day ago, patient stated she was all right till today when in the afternoon started noticing that her breathing was getting worse. Patient was complaining of her heart beating fast and her chest feeling tight. Patient complains of shortness of breath at rest and on exertion as well. Patient denies any fever or chills. There is no complaint of orthopnea or PND. Because of these worsening symptoms, patient called EMS and she was brought to the ER Initial lab work done in the ER showed WBC 11.1, hemoglobin 12.2, platelet count 271, sodium 137, potassium 4.3, BUN 27, creatinine 0.61, lactate 1.4, troponin 0.012, proBNP 5490 EKG done in the ER showed heart rate of 114, QRS 81, irregular rate and rhythm, no ST segment elevation or depression seen, no T-wave inversions seen. Chest x-ray done in the ER moderate to severe CHF Patient admitted to internal medicine service 08/25. Patient seen and examined. Patient was in respiratory distress overnight, continues to be in A-fib with rapid ventricular rate, was started on amiodarone drip. Currently on BiPAP with FiO2 60% 08/27/2023 Patient today is awake and alert at baseline She still complaining from significant dyspnea, currently on BiPAP She remains on IV Lasix 40 mg twice daily, as well as her Eliquis and prednisone burst taper Amiodarone drip switched to oral amiodarone 400 mg today. 08/28/2023 patient still dyspneic start requiring BiPAP. She Answers Questions Approp riately but Looks Tired She Denies Chest Pain or Abdominal Pain. Blood Pressure Is Borderline and This Morning Was 80/40, Blood Pressure Pills Were Held Patient with No Fever Still Tachypneic but Not Tachycardic Her Creatinine Jumped up 1.0 up to 2.4 Therefore We Switch Her IV Lasix to Oral and Hold Her Lisinopril and Other Blood Pressure Normal This Morning. We'll Keep Monitoring Blood Pressure and Creatinine for Now. We'll Send for Urine Analysis Bladder Scan Is 0 Currently she is on Eliquis 5 mg prednisone 30 mg Review of systems CONSTITUTIONAL: No fever, no malaise, no fatigue. HEENT: No recent visual problems or hearing problems. Denied any sore throat. CARDIOVASCULAR: No orthopnea, PND, no palpitations, no syncope. PULMONARY: No shortness of breath, no cough, no hemoptysis. GASTROINTESTINAL: No diarrhea, no nausea, no vomiting, no abdominal pain. Normoactive bowel sounds. NEUROLOGICAL: No headaches, no weakness, no numbness. HEMATOLOGICAL: Denies any bleeding or petechiae. Active Medications Generic Name Dose Route Start Last Admin Trade Name Freq PRN Reason Stop Dose Admin Acetaminophen 650 mg 08/24/23 23:17 08/26/23 05:00 Acetaminophen Tab 325 Mg Tab PO 650 mg Q4HR PRN Administration Mild Pain or Fever > 100.5 Hydrocodone Bitart/Acetaminophen 1 each 08/25/23 09:00 08/28/23 10:32 Hydrocodone/Apap 10-325mg 1 Each Tab PO Not Given TID SHAWNA Albuterol/Ipratropium 3 ml 08/25/23 08:00 08/28/23 08:35 Ipratropium-Albuterol 3 Ml Neb INHALATION 3 ml RT-QID SHAWNA Administration Albuterol/Ipratropium 3 ml 08/26/23 06:43 08/26/23 11:43 Ipratropium-Albuterol 3 Ml Neb INHALATION 3 ml RT-Q2H PRN Administration Shortness Of Breath Or Wheezing Amiodarone HCl 400 mg 08/27/23 09:30 08/28/23 09:21 Amiodarone 200 Mg Tab PO 400 mg BID SHAWNA Administration Apixaban 5 mg 08/25/23 09:00 08/28/23 09:21 Apixaban 5 Mg Tab PO 5 mg BID SHAWNA Administration Protocol Atorvastatin Calcium 40 mg 08/25/23 21:00 08/27/23 20:13 Atorvastatin 40 Mg Tab PO 40 mg HS SHAWNA Administration Dapagliflozin 10 mg 08/26/23 09:00 08/28/23 09:21 Dapagliflozin Propanediol 10 Mg Tablet PO 10 mg DAILY SHAWNA Administration Diltiazem HCl 30 mg 08/25/23 13:00 08/28/23 10:31 Diltiazem Oral 30 Mg Tab PO Not Given QID [facility] Fluoxetine HCl 40 mg 08/27/23 12:00 08/27/23 11:57 Fluoxetine Hcl 20 Mg Cap PO 40 mg DAILY@1200 [facility] Administration Fluticasone Propionate 2 spray 08/26/23 16:30 08/28/23 10:31 Fluticasone 50mcg/[place] Nasal 16gm EA NOSTRIL Not Given DAILY SHAWNA Folic Acid 1 mg 08/25/23 09:00 08/28/23 09:21 Folic Acid 1 Mg Tab PO 1 mg DAILY SHAWNA Administration Furosemide 40 mg 08/28/23 09:00 08/28/23 10:32 Furosemide 40 Mg Tab PO Not Given BID@0900,1600 [facility] Gabapentin 300 mg 08/25/23 09:00 08/28/23 10:32 Gabapentin 300 Mg Cap PO Not Given BID [facility] Guaifenesin 1,200 mg 08/25/23 09:00 08/28/23 09:21 Guaifenesin 600 Mg Tablet.Er PO 1,200 mg Q12HR [facility] Administration Metoprolol Tartrate 100 mg 08/25/23 09:00 08/28/23 10:32 Metoprolol Tartrate 50 Mg Tab PO Not Given BID [facility] Mirtazapine 15 mg 08/25/23 21:00 08/27/23 20:13 Mirtazapine 15 Mg Tab PO 15 mg HS [facility] Administration Montelukast Sodium 10 mg 08/25/23 21:00 08/27/23 20:13 Montelukast 10 Mg Tab PO 10 mg HS [facility] Administration Naloxone HCl 0.2 mg 08/24/23 23:17 Naloxone 0.4 Mg/Ml 1 Ml Vial IVP Q2M PRN Opioid Reversal Nitroglycerin 0.4 mg 08/24/23 23:20 Nitroglycerin Sl Tabs 0.4 Mg Tab SUBLINGUAL Q5M PRN Chest Pain Pantoprazole Sodium 40 mg 08/25/23 09:00 08/28/23 10:32 Pantoprazole 40 Mg Tablet PO Not Given DAILY [facility] Prednisone 40 mg 08/25/23 09:00 08/28/23 09:21 Prednisone 20 Mg Tab PO 08/29/23 09:01 40 mg DAILY [facility] Administration Spironolactone 25 mg 08/25/23 09:00 08/28/23 10:32 Spironolactone 25 Mg Tab PO Not Given DAILY SHAWNA Objective - Vital Signs Vital signs: Vital Signs Temp 97.0 F L 08/28/23 08:00 Pulse 87 08/28/23 09:20 Resp 26 H 08/28/23 09:17 BP 80/46 08/28/23 09:17 Pulse Ox 93 L 08/28/23 09:17 FiO2 65 08/28/23 09:17 Intake & Output 08/27/23 08/28/23 08/28/23 18:59 06:59 18:59 Intake Total 1506 0 Output Total 800 Balance 706 0 Weight 101 kg Intake: IV 10 Invasive Line 2 10 Oral 1496 0 Output: Urine 800 Other: Voiding Method External Catheter External Catheter - Exam -GENERAL: The patient is alert and oriented x3, not in any acute distress. Obese . HEENT: Pupils are round and equally reacting to light. EOMI. No scleral icterus. No conjunctival pallor. Normocephalic, atraumatic. No pharyngeal erythema. No thyromegaly. CARDIOVASCULAR: S1 and S2 present. No murmurs, rubs, or gallops. PU-LMONARY: Chest is clear to auscultation, no wheezing , no crackles. decreased air entry on both sides. ABDOMEN: Soft, nontender, nondistended, normoactive bowel sounds. No palpable organomegaly. MUSCULOSKELETAL: No joint swelling or deformity. EXTREMITIES: No cyanosis, clubbing, or pedal edema. NEUROLOGICAL: Gross neurological examination did not reveal any focal deficits. SKIN: No rashes. no petechiae. - Labs CBC & Chem 7: 08/27/23 07:47 08/28/23 06:54 Labs: Abnormal Lab Results - Last 24 Hours (Table) 08/27/23 08/28/23 Range/Units 07:47 06:54 Sodium 132 L (137-145) mmol/L Potassium 5.5 H (3.5-5.1) mmol/L Chloride 92 L (98-107) mmol/L Carbon Dioxide 31 H (22-30) mmol/L BUN 79 H (7-17) mg/dL Creatinine 2.46 H (0.52-1.04) mg/dL Glucose 103 H (74-99) mg/dL Procalcitonin 0.54 H (0.02-0.09) ng/mL Assessment and Plan Assessment: Acute on chronic hypoxic respiratory failure Acute on chronic diastolic heart failure exacerbation acute kidney injury COPD with chronic oxygen dependency, baseline 3-4 L at all times Severe obstructive sleep apnea. Atrial fibrillation with RVR in pt with Chronic atrial fibrillation on anticoagulation with Eliquis CAD with previous stent Hypertension, currently borderline hypertensive Hyperlipidemia Bilateral lower extremity edema with venous stasis dermatitis. Type II [id number]-[id number] diabetes mellitus with hemoglobin A1c of 7%. Morbid obesity with BMI of 50.8 kg/m Plan: 12 blood pressure pills change IV Lasix Toprol. Keep monitor blood pressure Urine analysis and consult nephrology Continue with Eliquis 5 mg Patient on prednisone taper Cardiology and pulmonary team consult Labs and medication were reviewed.. Continue same treatment. Continue with symptomatic treatment. Resume home medication. Monitor labs and vitals. DVT and GI prophylaxis. Further recommendations as per clinical course of the patient DVT prophylaxis: Eliquis GI Prophylaxis: Pepcid PT/OT: Pending Prognosis is guarded
[2023-08-28 11:33] LABS: Anisocytosis Slight; HCT 34.9 % (34.0-46.0); HGB 10.6 gm/dL (11.4-16.0); Hypochromasia Marked; MCH 28.5 pg (25.0-35.0); MCHC 30.2 g/dL (31.0-37.0); MCV 94.3 fL (80.0-100.0); Macrocytosis Slight; Mean Platelet Volume 8.5; Platelet Count 223 k/uL (150-450); RBC 3.71 m/uL (3.80-5.40); RDW 18.5 % (11.5-15.5); WBC 7.8 k/uL (3.8-10.6)
[2023-08-28] MEDS: MIDODRINE 5 MG TAB PO SCH (12:19)
--- NOTE | 2023-08-28 12:27 | P.NPCON ---
History of Present Illness - Reason for Consult acute renal failure - History of Present Illness patient is a 57-year-old female with history of coronary artery disease, diastolic heart failure, chronic A. fib and type 2 diabetes and severe COPD maintained on home oxygen. Patient is admitted to the hospitalwith complaints of shortness of breath. No history of fever chills nausea vomiting. Chest x-ray showed moderate to severe CHF. Patient is being diuresed. serum creatinine was 0.74 on initial admission and increased to 2.46 today. It was 1.0 yesterday. Blood pressure is noted to be significantly low with systolic in the 80s. Lisinopril has been appropriately discontinued. Bladder scan was performed which showed 0 mL of urine in the bladder. Lasix is currently on hold. Patient is maintained on BiPAP Review of Systems as per HPI Past Medical History Past Medical History: Atrial Fibrillation, Asthma, COPD, Hyperlipidemia, Hypertension, Myocardial Infarction ([place]), Respiratory Disorder Additional Past Medical History / Comment(s): wears oxygen 3lnc when mobile, +RSV 06/2023 Last Myocardial Infarction Date:: 2021 History of Any Multi-Drug Resistant Organisms: None Reported Past Surgical History: Heart Catheterization With Stent, Orthopedic Surgery Additional Past Surgical History / Comment(s): metal plate right arm, oral surgery fracture jawed,hx gallstones Past Anesthesia/Blood Transfusion Reactions: No Reported Reaction Additional Past Anesthesia/Blood Transfusion Reaction / Comment(s): No blood transfusion Date of Last Stent Placement:: 2021 Past Psychological History: Anxiety, Depression Smoking Status: Former smoker Past Alcohol Use History: None Reported Past Drug Use History: None Reported - Past Family History Mother Family Medical History: Cancer Additional Family Medical History / Comment(s): uterine, breast, lymph nodes Medications and Allergies Home Medications Medication Instructions Recorded Confirmed Type Apixaban [Eliquis] 5 mg PO BID 10/26/22 08/25/23 History Atorvastatin [Lipitor] 40 mg PO HS 10/26/22 08/25/23 History Cetirizine HCl 10 mg PO DAILY 10/26/22 08/25/23 History FLUoxetine HCL [PROzac] 40 mg PO DAILY@1200 10/26/22 08/25/23 History Folic Acid 1 mg PO DAILY 10/26/22 08/25/23 History Gabapentin [Neurontin] 300 mg PO BID 10/26/22 08/25/23 History Mirtazapine [Remeron] 15 mg PO HS 10/26/22 08/25/23 History Montelukast [Singulair] 10 mg PO HS 10/26/22 08/25/23 History Dulaglutide [Trulicity] 1.5 mg SQ SA 06/21/23 08/25/23 History Ergocalciferol [Vitamin D2 (1250 1,250 mcg PO SA 06/21/23 08/25/23 History Mcg = 99706 Iu)] Ipratropium-Albuterol Nebulize 3 ml INHALATION RT-QID 06/21/23 08/25/23 History [Duoneb 0.5 mg-3 mg/3 ml Soln] Omeprazole 20 mg PO DAILY 06/21/23 08/25/23 History lisinopriL [Zestril] 5 mg PO DAILY 06/21/23 08/25/23 History Fluticasone Nasal [place] [Flonase 2 spray EA NOSTRIL DAILY ml 06/27/23 08/25/23 Rx Nasal [place]] guaiFENesin [Mucinex] 1,200 mg PO Q12HR tab 06/27/23 08/25/23 Rx Furosemide [Lasix] 40 mg PO BID@0900,1600 #60 tab 07/27/23 08/25/23 Rx HYDROcodone/APAP 10-325MG [[place] 1 tab PO TID 08/19/23 08/25/23 History 10-325] Metoprolol Tartrate [Lopressor] 100 mg PO BID 08/19/23 08/25/23 History Spironolactone [Aldactone] 25 mg PO DAILY 90 Days #90 tab 08/21/23 08/25/23 Rx predniSONE See Taper PO DIRECTED 16 Days 08/21/23 08/25/23 Rx #40 tab Allergies Allergy/AdvReac Type Severity Reaction Status Date / Time ibuprofen Allergy Rash/Hives Verified 08/25/23 10:34 NSAIDS (Non-Steroidal Allergy Rash/Hives Verified 08/25/23 10:34 Anti-Inflamma tetracycline Allergy Rash/Hives Verified 08/25/23 10:34 Physical Exam Vitals: Vital Signs Temp Pulse Pulse Resp BP BP Pulse Ox 08/28/23 11:19 80 21 08/28/23 11:09 84 24 08/28/23 11:05 79 24 93/61 90 L 08/28/23 09:20 87 08/28/23 09:17 26 H 80/46 93 L 08/28/23 08:46 80 21 08/28/23 08:39 08/28/23 08:36 77 23 08/28/23 08:00 97.0 F L 87 19 95/62 100 08/28/23 05:22 08/28/23 04:00 80 19 92/68 97 08/28/23 01:13 08/27/23 23:19 98.1 F 89 18 99/63 97 08/27/23 23:00 97 08/27/23 21:28 72 08/27/23 21:15 76 08/27/23 20:00 78 25 H 93/62 96 08/27/23 16:40 75 24 140/60 08/27/23 15:53 100 08/27/23 15:36 08/27/23 15:33 98 08/27/23 12:27 98 08/27/23 12:21 87 26 H 110/66 92 L FiO2 08/28/23 11:19 08/28/23 11:09 40 08/28/23 11:05 65 08/28/23 09:20 08/28/23 09:17 65 08/28/23 08:46 08/28/23 08:39 40 08/28/23 08:36 65 08/28/23 08:00 08/28/23 05:22 65 08/28/23 04:00 65 08/28/23 01:13 65 08/27/23 23:19 65 08/27/23 23:00 65 08/27/23 21:28 08/27/23 21:15 65 08/27/23 20:00 65 08/27/23 16:40 65 08/27/23 15:53 08/27/23 15:36 65 08/27/23 15:33 08/27/23 12:27 08/27/23 12:21 65 Intake and Output 08/27/23 08/28/23 08/28/23 22:59 06:59 14:59 Intake Total 658 Output Total 300 Balance 358 Intake: Oral 658 Output: Urine 300 Other: Voiding Method External Catheter External Catheter Weight 101 kg patient is awake, comfortable She is currently on BiPAP Examination of the heart S1 and S2 Examination of the lungs bilateral breath sounds are heard decreased breath sounds at the bases Abdomen is soft morbidly obese Examination of lower extremity shows edema 1+ bilaterally SEED PACKER 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 intact Results - Lab Results Most recent lab results ABG pH 7.36 (7.35-7.45) 08/26/23 07:26 ABG pCO2 67 mmHg (35-45) H 08/26/23 07:26 ABG pO2 67 mmHg (83-108) L 08/26/23 07:26 ABG HCO3 38 mmol/L (21-25) H 08/26/23 07:26 ABG O2 Saturation 91.5 % (94-97) L 08/26/23 07:26 Calcium 8.7 mg/dL (8.4-10.2) 08/28/23 06:54 08/28/23 06:54 08/28/23 06:54 Assessment and Plan Assessment: 1. Acute kidney injury secondary to hypotension in the setting of use of ABA inhibitor's. Currently off of lisinopril. Blood pressure remains low. Patient has been started on midodrine. No urine retention noted.check UA 2. Hyperkalemia associated with acute kidney injury 3. Acute hypoxic respiratory failure secondary to CHF exacerbation 4. Chronic diastolic heart failure 5. Metabolic alkalosis associated with underlying COPDand diuresis Plan: agree with adding midodrine continue off of ABA inhibitor's [place] Aldactone [place] by mouth 1 May continue with farxiga consider decreasing metoprolol as blood pressure remains low Repeat labs in a.m. Check UA Check ultrasound of the kidneys Thank you for the consultation. We will continue to follow the patient with you during her hospitalization
--- NOTE | 2023-08-28 12:36 | P.PN ---
Subjective HISTORY OF PRESENT ILLNESS: Patient examined this morning at the bedside. Patient currently denies chest pain or pressure. She reports shortness of breath this morning. She remains on BiPAP at the time of examination. Patient is receiving IV diuretics. She also reports a frequent cough. Telemetry reveals atrial fibrillation with heart rate in the 80s. She is currently on IV amiodarone 08/28/2023 Patient examined this morning at the bedside. Patient denies chest pain or pressure. She reports mild shortness of breath. Her main complaint today is lower back discomfort. Patient's creatinine increased to 2.46 from 1.0 yesterday. Potassium 5.5. Patient's blood pressures have been on the low side with a systolic between 8090. PHYSICAL EXAM: VITAL SIGNS: Reviewed. GENERAL: Well-developed in no acute distress. NECK: Supple. No JVD or thyromegaly LUNGS: Respirations even and unlabored. Lungs diminished with bilateral rhonchi HEART: Regular rate and rhythm. S1 and S2 heard. EXTREMITIES: Normal range of motion. No clubbing or cyanosis. Peripheral pulses intact. 1+ bilateral lower extremity edema ASSESSMENT: Shortness of breath Acute on chronic hypoxic respiratory failure requiring BiPAP Acute COPD exacerbation Acute on chronic heart failure with preserved EF, 50 to 55% Persistent atrial fibrillation Coronary artery disease with previous PCI, details unknown Hypertension Hyperlipidemia Former nicotine dependence Morbid obesity Acute kidney injury likely secondary to hypotension along with diuresis PLAN: Continue current dose of metoprolol and amiodarone as patient had difficulty controlling atrial fibrillation on admission We will discontinue oral Cardizem secondary to hypotension Lisinopril has been discontinued as well. Discontinue Lasix for today Add midodrine 5 mg 3 times a day Monitor kidney function. If improvement tomorrow, will resume oral diuretics Daily weights, accurate intake and output, and monitoring of kidney function Further recommendations pending patient course Nurse practitioner note has been reviewed by physician. Signing provider agrees with the documented findings, assessment, and plan of care documented by NUCLEAR RADIATION ENGINEER as a scribe. Objective - Vital Signs Vital signs: Vital Signs Temp 97.8 F 08/28/23 12:00 Pulse 84 08/28/23 12:00 Resp 20 08/28/23 12:00 BP 97/56 08/28/23 12:00 Pulse Ox 91 L 08/28/23 12:00 FiO2 40 04/02/24 11:09 Intake & Output 08/27/23 08/28/23 08/28/23 18:59 06:59 18:59 Intake Total 1506 0 Output Total 800 Balance 706 0 Weight 101 kg Intake: IV 10 Invasive Line 2 10 Oral 1496 0 Output: Urine 800 Other: Voiding Method External Catheter External Catheter - Labs CBC & Chem 7: 08/28/23 06:54 08/28/23 06:54 Labs: Abnormal Lab Results - Last 24 Hours (Table) 08/28/23 08/28/23 Range/Units 06:54 06:54 RBC 3.71 L (3.80-5.40) m/uL Hgb 10.6 L (11.4-16.0) gm/dL MCHC 30.2 L (31.0-37.0) g/dL RDW 18.5 H (11.5-15.5) % Sodium 132 L (137-145) mmol/L Potassium 5.5 H (3.5-5.1) mmol/L Chloride 92 L (98-107) mmol/L Carbon Dioxide 31 H (22-30) mmol/L BUN 79 H (7-17) mg/dL Creatinine 2.46 H (0.52-1.04) mg/dL Glucose 103 H (74-99) mg/dL
--- NOTE | 2023-08-28 12:54 | US ---
EXAMINATION TYPE: US kidneys/renal and bladder DATE OF EXAM: 08/28/2023 COMPARISON: NONE CLINICAL INDICATION: Female, 57 years old with history of jamila; JAMILA EXAM MEASUREMENTS: Right Kidney: 11.3 x 4.1 x 3.9 cm Left Kidney: 12.8 x 5.1 x 6.3 cm Limited due to patient body habitus. Right Kidney: No hydronephrosis or masses seen Left Kidney: Slightly enlarged. Bladder: Not fully distended. Limited evaluation. Bilateral Jets seen: No *Incidental finding: Multiple hyperechoic foci with posterior shadowing seen within the gallbladder: 5.5 x 2.7 x 1.8 cm. IMPRESSION: 1. Cholelithiasis.
[2023-08-28 14:23] LABS: Appearance,Urine Cloudy (Clear); Bilirubin,Urine Negative (Negative); Blood,Urine Negative (Negative); Color,Urine Yellow; Glucose,Urine (UA) Trace (Negative); Ketones,Urine Negative (Negative); Leukocyte Esterase,Urine Large (Negative); Nitrite,Urine Negative (Negative); Protein,Urine 1+ (Negative); Specific Gravity,Urine 1.025 (1.001-1.035); Squamous Epithelial Cell,Urine <1 /hpf (0-4); WBC,Urine 3 /hpf (0-5)
--- NOTE | 2023-08-28 14:24 | P.PN ---
Subjective Progress Note Date: 08/28/23 Principal diagnosis: COPD exacerbation. Acute on chronic hypoxemic respiratory failure secondary to an acute exacerbation of diastolic congestive heart failure with mild increasing interstitial edema This is a 57-year-old female familiar to our service, patient has been recently admitted and discharged, we saw her on consultation for her COPD and obesity hypoventilation syndrome, with chronic hypoxic respiratory failure, patient however has been recently admitted with atrial fibrillation RVR, and pulmonary edema related to her atrial fibrillation with RVR. She was just discharged 3 days ago by cardiology, patient was readmitted this time with a similar presentation mostly shortness of breath, atrial fibrillation with RVR, and requiring BiPAP treatment upon admission mostly because of her hypoxia and hypercapnia. Patient is morbidly obese, and I saw her again today in the morning for her shortness of breath. Patient was noted to be on BiPAP, 14/6/60%, and her O2 saturation was in the 90s. Patient was hemodynamically stable, her rate seems to be poorly controlled, and cardiology is to address her cardiac arrhythmia/atrial fibrillation with RVR looking back at this patient's history, she is 57 years old with known history of coronary artery disease and stenting, chronic diastolic congestive heart failure, hypertension, chronic atrial fibrillation on Eliquis, non-insulin dependent diabetes, history of chronic venous stasis changes, history of COPD, obstructive sleep apnea syndrome, obesity hypoventilation syndrome, and again as noted above patient had multiple admissions with similar presentation to the hospital Chest x-ray on this admission clearly showed evidence of moderate to severe congestive heart failure Patient was reevaluated today on 08/26/2023, remains on BiPAP, 16/6/60%, patient continues to have some shortness of breath and intermittent episodes of cough. Chest x-ray is showing improvement in her pulmonary edema, doubt underlying pneumonia. Her atrial fibrillation seems to be better controlled. ABG earlier this morning showed a pO2 of 67 pCO2 67 pH of 7.36 WBC count is 9.8 hemoglobin 11.1 basic metabolic profile is normal, renal profile is normal Progress note dated August 27, 2023. 57-year-old female, seen today in room 361. The patient remains on BiPAP, with settings of 16/6, and 65%. The patient is now on oral amiodarone. She also continues on Eliquis. She is not receiving any IV fluids. Lab data today includes a white count of 8.8, hemoglobin 10.9, hematocrit 38.3, and a platelet count of 263,000. Sodium 133, potassium 4.5, chloride 71, CO2 35, BUN 44, creatinine 1.0. Glucose is 117. Procalcitonin level is 0.54. Blood gases yesterday, on FiO2 of 60% show pO2 of 67, pCO2 of 67, and a pH which is nearly normal at 7.36. Progress note dated August 28, 2023. 57-year-old female seen today in room 361. Currently, the patient is on BiPAP at 16/6, and 65%, which is now reduced down to 40%. Her saturations were excellent at 65%. The patient is not receiving any IV fluids. Current lab data includes a white count 7.8, hemoglobin 10.6, hematocrit 34.9, and normal platelet count. Sodium 132, potassium 5.5, chloride 72, CO2 31, BUN 79, creatinine 2.46. Anion gap is normal. Glucose is 103. Procalcitonin level was 0.54. Chest x-ray from 25 August, shows bibasilar infiltrates. The patient continues on breathing treatments, and prednisone. Objective - Vital Signs Vital signs: Vital Signs Temp 97.8 F 08/28/23 12:00 Pulse 84 08/28/23 12:00 Resp 20 08/28/23 12:00 BP 97/56 08/28/23 12:00 Pulse Ox 91 L 08/28/23 12:00 FiO2 40 08/28/23 11:09 Intake & Output 08/27/23 08/28/23 08/28/23 18:59 06:59 18:59 Intake Total 1506 0 Output Total 800 25 Balance 706 0 -25 Weight 101 kg Intake: IV 10 Invasive Line 2 10 Oral 1496 0 Output: Urine 800 25 Uretheral (Wolff) 25 Other: Voiding Method External Catheter External Catheter External Catheter - Exam No acute distress, currently on BiPAP. HEENT examination is grossly unremarkable. Neck supple. Full range of motion. No adenopathy thyromegaly or neck vein distention. Cardiovascular examination reveals regular rhythm rate. S1-S2 normal. No S3 or S4. No discernible murmur noted. Heart rate 84 bpm. Heart sounds are distant. Lungs reveal expiratory wheezes and rhonchi. Breath sounds are equal. No crackles. Saturations are 91 % on BiPAP. Abdomen, soft, with bowel sounds. No masses or tenderness. Extremities are intact. No cyanosis clubbing or edema. Skin is without rash or lesion. Neurologic examination is brief but nonfocal. - Labs CBC & Chem 7: 08/28/23 06:54 08/28/23 06:54 Labs: Abnormal Lab Results - Last 24 Hours (Table) 08/28/23 08/28/23 Range/Units 06:54 06:54 RBC 3.71 L (3.80-5.40) m/uL Hgb 10.6 L (11.4-16.0) gm/dL MCHC 30.2 L (31.0-37.0) g/dL RDW 18.5 H (11.5-15.5) % Sodium 132 L (137-145) mmol/L Potassium 5.5 H (3.5-5.1) mmol/L Chloride 92 L (98-107) mmol/L Carbon Dioxide 31 H (22-30) mmol/L BUN 79 H (7-17) mg/dL Creatinine 2.46 H (0.52-1.04) mg/dL Glucose 103 H (74-99) mg/dL Assessment and Plan Assessment: Acute on chronic atrial fibrillation, with RVR, and pulmonary edema. Acute on chronic hypoxemic respiratory failure, multifactorial, part related to diastolic CHF, atrial fibrillation, and COPD. Acute on chronic hypercapnic respiratory failure. Severe obstructive sleep apnea syndrome, currently on CPAP. Childhood asthma. Morbid obesity. Prior history of significant tobacco use. Multiple hospitalizations for COPD, and right lower extremity cellulitis. Previous sputum cultures positive for methicillin-resistant Staph aureus. History of chronic atrial fibrillation. History of hyperlipidemia. History of hypertension. History of coronary artery disease, previous PCI/stent placement. History of myocardial infarction. Chronic anxiety/depression. General medical debility. Plan: Plan dated August 27, 2023. The patient is seen today in room 371. The patient is on oral amiodarone, and Eliquis. She is not receiving any IV fluids. She remains on BiPAP, with settings of 16/6, and 65%. We will continue to follow make recommendations along the way. The patient's overall prognosis remains very guarded. Labs, x- rays, and all medications are reviewed. Plan dated August 28, 2023. The patient is seen today in room 361. The patient continues on BiPAP, with settings of 16/6, and 65%, be turned down to 40%. The patient's not receiving any IV fluids. Labs, x-rays, and medications are reviewed. The patient's overall prognosis remains very guarded. We will continue to follow the patient, make recommendations along the way. The patient is overall prognosis remains very guarded. Time with Patient: Less than 30
[2023-08-28] MEDS: SODIUM ZIRCONIUM CYCLOSILICATE 10 GM PACKET PO ONE (16:12)
--- NOTE | 2023-08-29 09:20 | P.PN ---
Subjective Patient is a 57-year-old female with a past medical history of CAD with stenting, chronic diastolic heart failure, hypertension, hyperlipidemia, chronic atrial fibrillation on anticoagulation with Eliquis, type II [id number]-[id number] ependent diabetes mellitus, chronic venous stasis dermatitis with chronic bilateral lower extremity edema, severe obstructive sleep apnea CPAP dependent, and chronic hypoxic respiratory failure secondary to advanced COPD home oxygen dependent 3 L presented to the ER for worsening shortness of breath. Patient was only discharged on hospital day ago, patient stated she was all right till today when in the afternoon started noticing that her breathing was getting worse. Patient was complaining of her heart beating fast and her chest feeling tight. Patient complains of shortness of breath at rest and on exertion as well. Patient denies any fever or chills. There is no complaint of orthopnea or PND. Because of these worsening symptoms, patient called EMS and she was brought to the ER Initial lab work done in the ER showed WBC 11.1, hemoglobin 12.2, platelet count 271, sodium 137, potassium 4.3, BUN 27, creatinine 0.61, lactate 1.4, troponin 0.012, proBNP 5490 EKG done in the ER showed heart rate of 114, QRS 81, irregular rate and rhythm, no ST segment elevation or depression seen, no T-wave inversions seen. Chest x-ray done in the ER moderate to severe CHF Patient admitted to internal medicine service 08/25. Patient seen and examined. Patient was in respiratory distress overnight, continues to be in A-fib with rapid ventricular rate, was started on amiodarone drip. Currently on BiPAP with FiO2 60% 08/27/2023 Patient today is awake and alert at baseline She still complaining from significant dyspnea, currently on BiPAP She remains on IV Lasix 40 mg twice daily, as well as her Eliquis and prednisone burst taper Amiodarone drip switched to oral amiodarone 400 mg today. 08/28/2023 patient still dyspneic start requiring BiPAP. She Answers Questions Approp riately but Looks Tired She Denies Chest Pain or Abdominal Pain. Blood Pressure Is Borderline and This Morning Was 80/40, Blood Pressure Pills Were Held Patient with No Fever Still Tachypneic but Not Tachycardic Her Creatinine Jumped up 1.0 up to 2.4 Therefore We Switch Her IV Lasix to Oral and Hold Her Lisinopril and Other Blood Pressure Normal This Morning. We'll Keep Monitoring Blood Pressure and Creatinine for Now. We'll Send for Urine Analysis Bladder Scan Is 0 Currently she is on Eliquis 5 mg prednisone 30 mg 08/29/2023 Patient remains on BiPAP, today it is somewhat lower lethargic and harder to wake up. Mostly this is related to her metabolic encephalopathy as she has si gnificantly worsening renal function yesterday up to 2.4 which might be contributing besides other medical problems affecting her mentation. Patient is afebrile, Blood pressure slightly better 90/57, she is still tachypneic with a rate around 25, Labs from today are pending She has renal ultrasound which I reviewed myself showing no hydronephrosis but incidental finding of cholelithiasis 5.5 x 6 2.7 x 1.8 cm. She remains on Eliquis 5 mg, Lasix Cardizem and Aldactone held Continue with metoprolol 100 mg and midodrine 5 mg was added Also she is on amiodarone. Active Medications Generic Name Dose Route Start Last Admin Trade Name Freq PRN Reason Stop Dose Admin Acetaminophen 650 mg 08/24/23 23:17 08/26/23 05:00 Acetaminophen Tab 325 Mg Tab PO 650 mg Q4HR PRN Administration Mild Pain or Fever > 100.5 Hydrocodone Bitart/Acetaminophen 1 each 08/25/23 09:00 08/28/23 21:25 Hydrocodone/Apap 10-325mg 1 Each Tab PO 1 each TID SHAWNA Administration Albuterol/Ipratropium 3 ml 08/25/23 08:00 08/29/23 08:25 Ipratropium-Albuterol 3 Ml Neb INHALATION 3 ml RT-QID SHAWNA Administration Albuterol/Ipratropium 3 ml 08/26/23 06:43 08/26/23 11:43 Ipratropium-Albuterol 3 Ml Neb INHALATION 3 ml RT-Q2H PRN Administration Shortness Of Breath Or Wheezing Amiodarone HCl 400 mg 08/27/23 09:30 08/28/23 20:43 Amiodarone 200 Mg Tab PO 400 mg BID SHAWNA Administration Apixaban 5 mg 08/25/23 09:00 08/28/23 20:43 Apixaban 5 Mg Tab PO 5 mg BID SHAWNA Administration Protocol Atorvastatin Calcium 40 mg 08/25/23 21:00 08/28/23 20:43 Atorvastatin 40 Mg Tab PO 40 mg HS SHAWNA Administration Dapagliflozin 10 mg 08/26/23 09:00 08/28/23 09:21 Dapagliflozin Propanediol 10 Mg Tablet PO 10 mg DAILY SHAWNA Administration Fluoxetine HCl 40 mg 08/27/23 12:00 08/28/23 12:19 Fluoxetine Hcl 20 Mg Cap PO 40 mg DAILY@1200 SHAWNA Administration Fluticasone Propionate 2 spray 08/26/23 16:30 08/28/23 10:31 Fluticasone 50mcg/[place] Nasal 16gm EA NOSTRIL Not Given DAILY SHAWNA Folic Acid 1 mg 08/25/23 09:00 08/28/23 09:21 Folic Acid 1 Mg Tab PO 1 mg DAILY SHAWNA Administration Gabapentin 300 mg 08/25/23 09:00 08/28/23 20:43 Gabapentin 300 Mg Cap PO 300 mg BID SHAWNA Administration Guaifenesin 1,200 mg 08/25/23 09:00 08/28/23 20:43 Guaifenesin 600 Mg Tablet.Er PO 1,200 mg Q12HR SHAWNA Administration Metoprolol Tartrate 100 mg 08/25/23 09:00 08/28/23 21:25 Metoprolol Tartrate 50 Mg Tab PO 100 mg BID SHAWNA Administration Midodrine 5 mg 08/28/23 12:30 08/29/23 06:48 Midodrine 5 Mg Tab PO 5 mg AC-TID SHAWNA Administration Mirtazapine 15 mg 08/25/23 21:00 08/28/23 20:43 Mirtazapine 15 Mg Tab PO 15 mg HS SHAWNA Administration Montelukast Sodium 10 mg 08/25/23 21:00 08/28/23 20:43 Montelukast 10 Mg Tab PO 10 mg HS SHAWNA Administration Naloxone HCl 0.2 mg 08/24/23 23:17 Naloxone 0.4 Mg/Ml 1 Ml Vial IVP Q2M PRN Opioid Reversal Nitroglycerin 0.4 mg 08/24/23 23:20 Nitroglycerin Sl Tabs 0.4 Mg Tab SUBLINGUAL Q5M PRN Chest Pain Pantoprazole Sodium 40 mg 08/25/23 09:00 08/28/23 10:32 Pantoprazole 40 Mg Tablet PO Not Given DAILY [facility] Objective - Vital Signs Vital signs: Vital Signs Temp 98.3 F 08/29/23 07:58 Pulse 89 08/29/23 08:42 Resp 25 H 08/29/23 07:58 BP 90/57 08/29/23 07:58 Pulse Ox 91 L 08/29/23 07:58 FiO2 50 08/29/23 08:44 Intake & Output 08/28/23 08/29/23 08/29/23 18:59 06:59 18:59 Intake Total 118 Output Total 25 550 Balance 93 -550 Weight 87 kg Intake: Oral 118 Output: Urine 25 550 Uretheral (Wolff) 25 Other: Voiding Method External Catheter External Catheter - Exam --GENERAL: The patient is alert and awake but drowsy. On BiPAP machine. Obese . HEENT: Pupils are round and equally reacting to light. EOMI. No scleral icterus. No conjunctival pallor. Normocephalic, atraumatic. No pharyngeal erythema. No thyromegaly. CARDIOVASCULAR: S1 and S2 present. No murmurs, rubs, or gallops. PU-LMONARY: Chest is clear to auscultation, no wheezing , no crackles. decreased air entry on both sides. ABDOMEN: Soft, nontender, nondistended, normoactive bowel sounds. No palpable or ganomegaly. MUSCULOSKELETAL: No joint swelling or deformity. EXTREMITIES: No cyanosis, clubbing, or pedal edema. NEUROLOGICAL: Gross neurological examination did not reveal any focal deficits. SKIN: No rashes. no petechiae. - Labs CBC & Chem 7: 08/28/23 06:54 08/28/23 06:54 Labs: Abnormal Lab Results - Last 24 Hours (Table) 08/28/23 08/28/23 08/28/23 Range/Units 06:54 06:54 13:58 RBC 3.71 L (3.80-5.40) m/uL Hgb 10.6 L (11.4-16.0) gm/dL MCHC 30.2 L (31.0-37.0) g/dL RDW 18.5 H (11.5-15.5) % Procalcitonin 1.36 H (0.02-0.09) ng/mL Urine Appearance Cloudy H (Clear) Urine Protein 1+ H (Negative) Urine Glucose (UA) Trace H (Negative) Ur Leukocyte Esterase Large H (Negative) Assessment and Plan Assessment: Acute on chronic hypoxic respiratory failure Acute on chronic diastolic heart failure exacerbation acute kidney injury Metabolic encephalopathy Cholelithiasis COPD with chronic oxygen dependency, baseline 3-4 L at all times Severe obstructive sleep apnea. Atrial fibrillation with RVR in pt with Chronic atrial fibrillation on anticoagulation with Eliquis CAD with previous stent Hypertension, currently borderline hypertensive Hyperlipidemia Bilateral lower extremity edema with venous stasis dermatitis. Type II [id number] diabetes mellitus with hemoglobin A1c of 7%. Morbid obesity with BMI of 50.8 kg/m Plan: Keep holding lisinopril Aldactone and Cardizem. Continue with metoprolol and midodrine and monitor blood pressure Urine analysis and consult nephrology Continue with Eliquis 5 mg Patient on prednisone taper Cardiology and pulmonary team consult Labs and medication were reviewed.. Continue same treatment. Continue with symptomatic treatment. Resume home medication. Monitor labs and vitals. DVT and GI prophylaxis. Further recommendations as per clinical course of the patient DVT prophylaxis: Eliquis GI Prophylaxis: Pepcid PT/OT: Pending Prognosis is guarded
--- NOTE | 2023-08-29 09:50 | XR ---
EXAMINATION TYPE: XR chest 1V portable DATE OF EXAM: 08/29/2023 COMPARISON: 08/26/2023 INDICATION: Short of breath TECHNIQUE: Single frontal view of the chest is obtained. FINDINGS: The heart size is normal. The pulmonary vasculature is normal. Perihilar infiltrates and lower lobe infiltrates are present. Findings are similar to comparison. Con tinued follow-up is recommended. IMPRESSION: 1. Bibasilar infiltrates. Continued follow-up is recommended
[2023-08-29 10:02] LABS: Anisocytosis Slight; Basophils % (A) 0 %; Eosinophils % (A) 0 %; HGB 10.4 gm/dL (11.4-16.0); Hypochromasia Marked; Lymphocytes # (A) 0.5 k/uL (1.0-4.8); Lymphocytes % (A) 4 %; MCH 27.2 pg (25.0-35.0); MCHC 29.7 g/dL (31.0-37.0); MCV 91.4 fL (80.0-100.0); Mean Platelet Volume 8.4; Monocytes # (A) 0.4 k/uL (0-1.0); Monocytes % (A) 4 %; Neutrophils # (A) 9.5 k/uL (1.3-7.7); Neutrophils % (A) 90 %; Platelet Count 260 k/uL (150-450); RBC 3.83 m/uL (3.80-5.40); RDW 18.2 % (11.5-15.5); WBC 10.6 k/uL (3.8-10.6)
[2023-08-29 10:41] LABS: African American GFR (CKD) 21 (>60 ml/min/1.73 sqM); Anion Gap 11 mmol/L; Blood Urea Nitrogen 89 mg/dL (7-17); Calcium 8.6 mg/dL (8.4-10.2); Carbon Dioxide 32 mmol/L (22-30); Chloride 91 mmol/L (98-107); Glucose 116 mg/dL (74-99); Non-African American GFR(CKD) 18 (>60 ml/min/1.73 sqM); Potassium 4.8 mmol/L (3.5-5.1); Sodium 134 mmol/L (137-145)
--- NOTE | 2023-08-29 11:18 | P.PN ---
Subjective HISTORY OF PRESENT ILLNESS: Patient examined this morning at the bedside. Patient currently denies chest pain or pressure. She reports shortness of breath this morning. She remains on BiPAP at the time of examination. Patient is receiving IV diuretics. She also reports a frequent cough. Telemetry reveals atrial fibrillation with heart rate in the 80s. She is currently on IV amiodarone 08/28/2023 Patient examined this morning at the bedside. Patient denies chest pain or pressure. She reports mild shortness of breath. Her main complaint today is lower back discomfort. Patient's creatinine increased to 2.46 from 1.0 yesterday. Potassium 5.5. Patient's blood pressures have been on the low side with a systolic between 8090. 08/29/2023 Patient examined this morning at the bedside. Patient is lethargic this morning upon examination and requires multiple attempts at verbal arousal. Patient remains on BiPAP. Patient's creatinine today is worsened at 2.8. Pressures remain on the low side with a systolic around 90. PHYSICAL EXAM: VITAL SIGNS: Reviewed. GENERAL: Well-developed in no acute distress. NECK: Supple. No JVD or thyromegaly LUNGS: Respirations even and unlabored. Lungs diminished bilaterally HEART: Regular rate and rhythm. S1 and S2 heard. EXTREMITIES: Normal range of motion. No clubbing or cyanosis. Peripheral pulses intact. 1-2+ bilateral lower extremity edema ASSESSMENT: Shortness of breath Acute on chronic hypoxic respiratory failure requiring BiPAP Acute COPD exacerbation Acute on chronic heart failure with preserved EF, 50 to 55% Persistent atrial fibrillation Coronary artery disease with previous PCI, details unknown Hypertension Hyperlipidemia Former nicotine dependence Morbid obesity Acute kidney injury likely secondary to hypotension along with diuresis PLAN: Continue current dose of metoprolol and amiodarone as patient had difficulty controlling atrial fibrillation on admission Cardizem and lisinopril have been discontinued Continue to hold oral diuretics Obtain chest x-ray Obtain ABG Continue to monitor kidney function Further recommendations pending patient course Nurse practitioner note has been reviewed by physician. Signing provider agrees with the documented findings, assessment, and plan of care documented by PATCH WORKER as a scribe. Objective - Vital Signs Vital signs: Vital Signs Temp 98.3 F 08/29/23 07:58 Pulse 89 08/29/23 08:42 Resp 25 H 08/29/23 07:58 BP 90/57 08/29/23 07:58 Pulse Ox 91 L 08/29/23 07:58 FiO2 50 08/29/23 08:44 Intake & Output 08/28/23 08/29/23 08/29/23 18:59 06:59 18:59 Intake Total 118 Output Total 25 550 Balance 93 -550 Weight 87 kg Intake: Oral 118 Output: Urine 25 550 Uretheral (Wolff) 25 Other: Voiding Method External Catheter External Catheter Indwelling Catheter - Labs CBC & Chem 7: 08/29/23 08:54 08/29/23 08:54 Labs: Abnormal Lab Results - Last 24 Hours (Table) 08/28/23 08/28/23 08/28/23 Range/Units 06:54 06:54 13:58 RBC 3.71 L (3.80-5.40) m/uL Hgb 10.6 L (11.4-16.0) gm/dL MCHC 30.2 L (31.0-37.0) g/dL RDW 18.5 H (11.5-15.5) % Neutrophils # (1.3-7.7) k/uL Lymphocytes # (1.0-4.8) k/uL Sodium (137-145) mmol/L Chloride (98-107) mmol/L Carbon Dioxide (22-30) mmol/L BUN (7-17) mg/dL Creatinine (0.52-1.04) mg/dL Glucose (74-99) mg/dL Procalcitonin 1.36 H (0.02-0.09) ng/mL Urine Appearance Cloudy H (Clear) Urine Protein 1+ H (Negative) Urine Glucose (UA) Trace H (Negative) Ur Leukocyte Esterase Large H (Negative) 08/29/23 08/29/23 Range/Units 08:54 08:54 RBC (3.80-5.40) m/uL Hgb 10.4 L (11.4-16.0) gm/dL MCHC 29.7 L (31.0-37.0) g/dL RDW 18.2 H (11.5-15.5) % Neutrophils # 9.5 H (1.3-7.7) k/uL Lymphocytes # 0.5 L (1.0-4.8) k/uL Sodium 134 L (137-145) mmol/L Chloride 91 L (98-107) mmol/L Carbon Dioxide 32 H (22-30) mmol/L BUN 89 H (7-17) mg/dL Creatinine 2.81 H (0.52-1.04) mg/dL Glucose 116 H (74-99) mg/dL Procalcitonin (0.02-0.09) ng/mL Urine Appearance (Clear) Urine Protein (Negative) Urine Glucose (UA) (Negative) Ur Leukocyte Esterase (Negative)
--- NOTE | 2023-08-29 11:33 | P.PN ---
Subjective Progress Note Date: 08/29/23 Principal diagnosis: COPD exacerbation. Acute on chronic hypoxemic respiratory failure secondary to an acute exacerbation of diastolic congestive heart failure with mild increasing interstitial edema This is a 57-year-old female familiar to our service, patient has been recently admitted and discharged, we saw her on consultation for her COPD and obesity hypoventilation syndrome, with chronic hypoxic respiratory failure, patient however has been recently admitted with atrial fibrillation RVR, and pulmonary edema related to her atrial fibrillation with RVR. She was just discharged 3 days ago by cardiology, patient was readmitted this time with a similar presentation mostly shortness of breath, atrial fibrillation with RVR, and requiring BiPAP treatment upon admission mostly because of her hypoxia and hypercapnia. Patient is morbidly obese, and I saw her again today in the morning for her shortness of breath. Patient was noted to be on BiPAP, 14/6/60%, and her O2 saturation was in the 90s. Patient was hemodynamically stable, her rate seems to be poorly controlled, and cardiology is to address her cardiac arrhythmia/atrial fibrillation with RVR looking back at this patient's history, she is 57 years old with known history of coronary artery disease and stenting, chronic diastolic congestive heart failure, hypertension, chronic atrial fibrillation on Eliquis, non-insulin dependent diabetes, history of chronic venous stasis changes, history of COPD, obstructive sleep apnea syndrome, obesity hypoventilation syndrome, and again as noted above patient had multiple admissions with similar presentation to the hospital Chest x-ray on this admission clearly showed evidence of moderate to severe congestive heart failure Patient was reevaluated today on 08/26/2023, remains on BiPAP, 16/6/60%, patient continues to have some shortness of breath and intermittent episodes of cough. Chest x-ray is showing improvement in her pulmonary edema, doubt underlying pneumonia. Her atrial fibrillation seems to be better controlled. ABG earlier this morning showed a pO2 of 67 pCO2 67 pH of 7.36 WBC count is 9.8 hemoglobin 11.1 basic metabolic profile is normal, renal profile is normal Progress note dated August 27, 2023. 57-year-old female, seen today in room 361. The patient remains on BiPAP, with settings of 16/6, and 65%. The patient is now on oral amiodarone. She also continues on Eliquis. She is not receiving any IV fluids. Lab data today includes a white count of 8.8, hemoglobin 10.9, hematocrit 38.3, and a platelet count of 263,000. Sodium 133, potassium 4.5, chloride 71, CO2 35, BUN 44, creatinine 1.0. Glucose is 117. Procalcitonin level is 0.54. Blood gases yesterday, on FiO2 of 60% show pO2 of 67, pCO2 of 67, and a pH which is nearly normal at 7.36. Progress note dated August 28, 2023. 57-year-old female seen today in room 361. Currently, the patient is on BiPAP at 16/6, and 65%, which is now reduced down to 40%. Her saturations were excellent at 65%. The patient is not receiving any IV fluids. Current lab data includes a white count 7.8, hemoglobin 10.6, hematocrit 34.9, and normal platelet count. Sodium 132, potassium 5.5, chloride 72, CO2 31, BUN 79, creatinine 2.46. Anion gap is normal. Glucose is 103. Procalcitonin level was 0.54. Chest x-ray from 25 August, shows bibasilar infiltrates. The patient continues on breathing treatments, and prednisone. Progress note dated August 29, 2023. 57-year-old female seen today in room 361. The patient continues on BiPAP, with settings of 16/6, and 50%. The patient's not receiving any IV fluids. She is doing about the same today as she did yesterday. Current labs include a white count 10.6, hemoglobin 10.4, hematocrit 35, and a platelet count of 260,000. S odium 134, potassium 4.8, chloride 91, CO2 32, BUN 89, and creatinine 2.81. Glucose is 116. Chest x-ray continues to show bibasilar and perihilar infiltrates. The chest x-ray is largely unchanged. Objective - Vital Signs Vital signs: Vital Signs Temp 97.6 F 08/29/23 11:25 Pulse 94 08/29/23 11:25 Resp 26 H 08/29/23 11:25 BP 99/67 08/29/23 11:25 Pulse Ox 94 L 08/29/23 11:25 FiO2 50 08/29/23 08:44 Intake & Output 04/02/24 04/03/24 04/03/24 18:59 06:59 18:59 Intake Total 118 Output Total 25 550 Balance 93 -550 Weight 87 kg Intake: Oral 118 Output: Urine 25 550 Uretheral (Wolff) 25 Other: Voiding Method External Catheter External Catheter Indwelling Catheter - Exam No acute distress, currently on BiPAP. Saturations are 94%. HEENT examination is grossly unremarkable. Neck supple. Full range of motion. No adenopathy thyromegaly or neck vein distention. Cardiovascular examination reveals regular rhythm rate. S1-S2 normal. No S3 or S4. No discernible murmur noted. Heart rate 94 bpm. Heart sounds are distant. Lungs reveal expiratory wheezes and rhonchi. Breath sounds are equal. No crackles. Saturations are 94 % on BiPAP. Abdomen, soft, with bowel sounds. No masses or tenderness. Extremities are intact. No cyanosis clubbing or edema. Skin is without rash or lesion. Neurologic examination is brief but nonfocal. - Labs CBC & Chem 7: 08/29/23 08:54 08/29/23 08:54 Labs: Abnormal Lab Results - Last 24 Hours (Table) 08/28/23 08/28/23 08/28/23 Range/Units 06:54 06:54 13:58 RBC 3.71 L (3.80-5.40) m/uL Hgb 10.6 L (11.4-16.0) gm/dL MCHC 30.2 L (31.0-37.0) g/dL RDW 18.5 H (11.5-15.5) % Neutrophils # (1.3-7.7) k/uL Lymphocytes # (1.0-4.8) k/uL Sodium (137-145) mmol/L Chloride (98-107) mmol/L Carbon Dioxide (22-30) mmol/L BUN (7-17) mg/dL Creatinine (0.52-1.04) mg/dL Glucose (74-99) mg/dL Procalcitonin 1.36 H (0.02-0.09) ng/mL Urine Appearance Cloudy H (Clear) Urine Protein 1+ H (Negative) Urine Glucose (UA) Trace H (Negative) Ur Leukocyte Esterase Large H (Negative) 08/29/23 08/29/23 Range/Units 08:54 08:54 RBC (3.80-5.40) m/uL Hgb 10.4 L (11.4-16.0) gm/dL MCHC 29.7 L (31.0-37.0) g/dL RDW 18.2 H (11.5-15.5) % Neutrophils # 9.5 H (1.3-7.7) k/uL Lymphocytes # 0.5 L (1.0-4.8) k/uL Sodium 134 L (137-145) mmol/L Chloride 91 L (98-107) mmol/L Carbon Dioxide 32 H (22-30) mmol/L BUN 89 H (7-17) mg/dL Creatinine 2.81 H (0.52-1.04) mg/dL Glucose 116 H (74-99) mg/dL Procalcitonin (0.02-0.09) ng/mL Urine Appearance (Clear) Urine Protein (Negative) Urine Glucose (UA) (Negative) Ur Leukocyte Esterase (Negative) Assessment and Plan Assessment: Acute on chronic atrial fibrillation, with RVR, and pulmonary edema. Acute on chronic hypoxemic respiratory failure, multifactorial, part related to diastolic CHF, atrial fibrillation, and COPD. Acute on chronic hypercapnic respiratory failure. Severe obstructive sleep apnea syndrome, currently on CPAP. Childhood asthma. Morbid obesity. Prior history of significant tobacco use. Multiple hospitalizations for COPD, and right lower extremity cellulitis. Previous sputum cultures positive for methicillin-resistant Staph aureus. History of chronic atrial fibrillation. History of hyperlipidemia. History of hypertension. History of coronary artery disease, previous PCI/stent placement. History of myocardial infarction. Chronic anxiety/depression. General medical debility. Plan: Plan dated August 27, 2023. The patient is seen today in room 371. The patient is on oral amiodarone, and Eliquis. She is not receiving any IV fluids. She remains on BiPAP, with settings of 16/6, and 65%. We will continue to follow make recommendations along the way. The patient's overall prognosis remains very guarded. Labs, x- rays, and all medications are reviewed. Plan dated August 28, 2023. The patient is seen today in room 361. The patient continues on BiPAP, with settings of 16/6, and 65%, be turned down to 40%. The patient's not receiving any IV fluids. Labs, x-rays, and medications are reviewed. The patient's overall prognosis remains very guarded. We will continue to follow the patient, make recommendations along the way. The patient is overall prognosis remains very guarded. Plan dated August 29, 2023. The patient was seen today in room 361. The patient continues on BiPAP, with settings of 16/6, and 50%. Saturations are in the mid 90s. Labs, x-rays, and medications are all reviewed. The patient's overall prognosis remains very guarded. We will continue to follow the patient, make recommendations along the way. The patient's overall clinical status remains about the same. Her chest x-ray done today, is unchanged. Time with Patient: Less than 30
--- NOTE | 2023-08-29 12:13 | P.PN ---
Subjective patient is seen for follow-up for acute kidney injury. Started on midodrine for low blood pressure and Haresh inhibitors are on hold. blood pressure remains low with systolic in the 90s. Wolff catheter was placed yesterday and 24 hour urine output noted at 800 mL. Patient remains on BiPAP. EF 50-55%. renal function has worsened with serum creatinine up to 2.8 mg/dL. Objective - Vital Signs Vital signs: Vital Signs Temp 97.6 F 08/29/23 11:25 Pulse 94 08/29/23 11:25 Resp 26 H 08/29/23 11:25 BP 99/67 08/29/23 11:25 Pulse Ox 94 L 08/29/23 11:25 FiO2 50 08/29/23 08:44 Intake & Output 08/28/23 08/29/23 08/29/23 18:59 06:59 18:59 Intake Total 118 Output Total 25 550 Balance 93 -550 Weight 87 kg Intake: Oral 118 Output: Urine 25 550 Uretheral (Wolff) 25 Other: Voiding Method External Catheter External Catheter Indwelling Catheter - Exam patient is awake, comfortable She is currently on BiPAP Examination of the heart S1 and S2 Examination of the lungs bilateral breath sounds are heard decreased breath sounds at the bases Abdomen is soft morbidly obese Examination of lower extremity shows edema 1+ bilaterally 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 ENGINEER 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 intact - Labs CBC & Chem 7: 08/29/23 08:54 08/29/23 08:54 Labs: Abnormal Lab Results - Last 24 Hours (Table) 08/28/23 08/28/23 08/29/23 Range/Units 06:54 13:58 08:54 Hgb (11.4-16.0) gm/dL MCHC (31.0-37.0) g/dL RDW (11.5-15.5) % Neutrophils # (1.3-7.7) k/uL Lymphocytes # (1.0-4.8) k/uL Sodium 134 L (137-145) mmol/L Chloride 91 L (98-107) mmol/L Carbon Dioxide 32 H (22-30) mmol/L BUN 89 H (7-17) mg/dL Creatinine 2.81 H (0.52-1.04) mg/dL Glucose 116 H (74-99) mg/dL Procalcitonin 1.36 H (0.02-0.09) ng/mL Urine Appearance Cloudy H (Clear) Urine Protein 1+ H (Negative) Urine Glucose (UA) Trace H (Negative) Ur Leukocyte Esterase Large H (Negative) 08/29/23 Range/Units 08:54 Hgb 10.4 L (11.4-16.0) gm/dL MCHC 29.7 L (31.0-37.0) g/dL RDW 18.2 H (11.5-15.5) % Neutrophils # 9.5 H (1.3-7.7) k/uL Lymphocytes # 0.5 L (1.0-4.8) k/uL Sodium (137-145) mmol/L Chloride (98-107) mmol/L Carbon Dioxide (22-30) mmol/L BUN (7-17) mg/dL Creatinine (0.52-1.04) mg/dL Glucose (74-99) mg/dL Procalcitonin (0.02-0.09) ng/mL Urine Appearance (Clear) Urine Protein (Negative) Urine Glucose (UA) (Negative) Ur Leukocyte Esterase (Negative) Assessment and Plan Assessment: 1. Acute kidney injury secondary to hypotension in the setting of use of HARESH inhibitor's. Currently off of lisinopril. Blood pressure remains low. Patient has been started on midodrine. No urine retention noted. UA is quite benign 2. Hyperkalemia associated with acute kidney injury 3. Acute hypoxic respiratory failure secondary to CHF exacerbation 4. Chronic diastolic heart failure 5. Metabolic alkalosis associated with underlying COPD and diuresis Plan: add IV Lasix Continue with midodrine Check random cortisol level Overall prognosis is guarded. Patient will need renal replacement therapy if renal function continues to deteriorate.
[2023-08-29] MEDS: FUROSEMIDE 10 MG/ML 4 ML VIAL IV SCH (12:24)
[2023-08-29 12:32] LABS: ABG Base Excess 9.2 mmol/L; ABG HCO3 36 mmol/L (21-25); ABG PH 7.27 (7.35-7.45); ABG PO2 63 mmHg (83-108); ABG TCO2 39 mmol/L (19-24); Allen Test Performed? Yes
[2023-08-29 12:36] LABS: ABG Oxygen Saturation 88.7 % (94-97); ABG PCO2 79 mmHg (35-45)
--- NOTE | 2023-08-30 07:26 | P.PN ---
Subjective Patient is a 57-year-old female with a past medical history of CAD with stenting, chronic diastolic heart failure, hypertension, hyperlipidemia, chronic atrial fibrillation on anticoagulation with Eliquis, type II [id number] ependent diabetes mellitus, chronic venous stasis dermatitis with chronic bilateral lower extremity edema, severe obstructive sleep apnea CPAP dependent, and chronic hypoxic respiratory failure secondary to advanced COPD home oxygen dependent 3 L presented to the ER for worsening shortness of breath. Patient was only discharged on hospital day ago, patient stated she was all right till today when in the afternoon started noticing that her breathing was getting worse. Patient was complaining of her heart beating fast and her chest feeling tight. Patient complains of shortness of breath at rest and on exertion as well. Patient denies any fever or chills. There is no complaint of orthopnea or PND. Because of these worsening symptoms, patient called EMS and she was brought to the ER Initial lab work done in the ER showed WBC 11.1, hemoglobin 12.2, platelet count 271, sodium 137, potassium 4.3, BUN 27, creatinine 0.61, lactate 1.4, troponin 0.012, proBNP 5490 EKG done in the ER showed heart rate of 114, QRS 81, irregular rate and rhythm, no ST segment elevation or depression seen, no T-wave inversions seen. Chest x-ray done in the ER moderate to severe CHF Patient admitted to internal medicine service 08/25. Patient seen and examined. Patient was in respiratory distress overnight, continues to be in A-fib with rapid ventricular rate, was started on amiodarone drip. Currently on BiPAP with FiO2 60% 08/27/2023 Patient today is awake and alert at baseline She still complaining from significant dyspnea, currently on BiPAP She remains on IV Lasix 40 mg twice daily, as well as her Eliquis and prednisone burst taper Amiodarone drip switched to oral amiodarone 400 mg today. 08/28/2023 patient still dyspneic start requiring BiPAP. She Answers Questions Approp riately but Looks Tired She Denies Chest Pain or Abdominal Pain. Blood Pressure Is Borderline and This Morning Was 80/40, Blood Pressure Pills Were Held Patient with No Fever Still Tachypneic but Not Tachycardic Her Creatinine Jumped up 1.0 up to 2.4 Therefore We Switch Her IV Lasix to Oral and Hold Her Lisinopril and Other Blood Pressure Normal This Morning. We'll Keep Monitoring Blood Pressure and Creatinine for Now. We'll Send for Urine Analysis Bladder Scan Is 0 Currently she is on Eliquis 5 mg prednisone 30 mg 08/29/2023 Patient remains on BiPAP, today it is somewhat lower lethargic and harder to wake up. Mostly this is related to her metabolic encephalopathy as she has si gnificantly worsening renal function yesterday up to 2.4 which might be contributing besides other medical problems affecting her mentation. Patient is afebrile, Blood pressure slightly better 90/57, she is still tachypneic with a rate around 25, Labs from today are pending She has renal ultrasound which I reviewed myself showing no hydronephrosis but incidental finding of cholelithiasis 5.5 x 6 2.7 x 1.8 cm. She remains on Eliquis 5 mg, Lasix Cardizem and Aldactone held Continue with metoprolol 100 mg and midodrine 5 mg was added Also she is on amiodarone. 08/30/2023 Patient on BiPAP this morning, she is more awake and alert, she follows commands and answers questions appropriately She still have some difficulty breathing and BiPAP is helping her. She denies abdominal pain or chest pain. Blood pressure improved currently 108/75, patient is tachypneic with a breathing rate 26-27 Chest x-ray showing bibasilar infiltrates Creatinine was 2.8 Patient remains on IV Lasix and prednisone 30 mg and Eliquis 5 mg Aldactone and lisinopril are placed on hold. Midodrine is currently 5 mg 3 times per day. Objective - Vital Signs Vital signs: Vital Signs Temp 97.8 F 08/29/23 19:46 Pulse 90 08/30/23 03:17 Resp 26 H 08/30/23 03:17 BP 108/75 08/30/23 03:17 Pulse Ox 92 L 08/30/23 03:17 FiO2 60 08/30/23 04:03 Intake & Output 08/29/23 08/30/23 08/30/23 18:59 06:59 18:59 Intake Total 10 20 Output Total 400 2750 Balance -390 -2730 Weight 87.5 kg Intake: IV 10 20 Invasive Line 2 10 20 Output: Urine 400 2750 Other: Voiding Method Indwelling Catheter Indwelling Catheter # Bowel Movements 1 - Exam --GENERAL: The patient is alert and awake but drowsy. On BiPAP machine. Obese . HEENT: Pupils are round and equally reacting to light. EOMI. No scleral icterus. No conjunctival pallor. Normocephalic, atraumatic. No pharyngeal erythema. No thyromegaly. CARDIOVASCULAR: S1 and S2 present. No murmurs, rubs, or gallops. PU-LMONARY: Chest is clear to auscultation, no wheezing , no crackles. decreased air entry on both sides. ABDOMEN: Soft, nontender, nondistended, normoactive bowel sounds. No palpable organomegaly. MUSCULOSKELETAL: No joint swelling or deformity. EXTREMITIES: No cyanosis, clubbing, or pedal edema. NEUROLOGICAL: Gross neurological examination did not reveal any focal deficits. SKIN: No rashes. no petechiae. - Labs CBC & Chem 7: 08/29/23 08:54 08/29/23 08:54 Labs: Abnormal Lab Results - Last 24 Hours (Table) 08/29/23 08/29/23 08/29/23 Range/Units 08:54 08:54 12:29 Hgb 10.4 L (11.4-16.0) gm/dL MCHC 29.7 L (31.0-37.0) g/dL RDW 18.2 H (11.5-15.5) % Neutrophils # 9.5 H (1.3-7.7) k/uL Lymphocytes # 0.5 L (1.0-4.8) k/uL ABG pH 7.27 L (7.35-7.45) ABG pCO2 79 H* (35-45) mmHg ABG pO2 63 L (83-108) mmHg ABG HCO3 36 H (21-25) mmol/L ABG Total CO2 39 H (19-24) mmol/L ABG O2 Saturation 88.7 L (94-97) % Sodium 134 L (137-145) mmol/L Chloride 91 L (98-107) mmol/L Carbon Dioxide 32 H (22-30) mmol/L BUN 89 H (7-17) mg/dL Creatinine 2.81 H (0.52-1.04) mg/dL Glucose 116 H (74-99) mg/dL Microbiology - Last 24 Hours (Table) 08/28/23 10:25 Blood Culture - Preliminary Blood Assessment and Plan Assessment: Acute on chronic hypoxic respiratory failure Acute on chronic diastolic heart failure exacerbation acute kidney injury Metabolic encephalopathy Cholelithiasis COPD with chronic oxygen dependency, baseline 3-4 L at all times Severe obstructive sleep apnea. Atrial fibrillation with RVR in pt with Chronic atrial fibrillation on anticoagulation with Eliquis CAD with previous stent Hypertension, currently borderline hypertensive Hyperlipidemia Bilateral lower extremity edema with venous stasis dermatitis. Type II [id number] diabetes mellitus with hemoglobin A1c of 7%. Morbid obesity with BMI of 50.8 kg/m Plan: Keep holding lisinopril Aldactone and Cardizem. Continue with metoprolol and midodrine and monitor blood pressure Keep monitoring creatinine. Currently patient on IV Lasix consult nephrology Continue with Eliquis 5 mg Patient on prednisone taper Cardiology and pulmonary team consult Labs and medication were reviewed.. Continue same treatment. Continue with symptomatic treatment. Resume home medication. Monitor labs and vitals. DVT and GI prophylaxis. Further recommendations as per clinical course of the patient DVT prophylaxis: Eliquis GI Prophylaxis: Pepcid PT/OT: Pending Prognosis is guarded
--- NOTE | 2023-08-30 11:03 | P.PN ---
Subjective Progress Note Date: 08/30/23 Principal diagnosis: COPD exacerbation. Acute on chronic hypoxemic respiratory failure secondary to an acute exacerbation of diastolic congestive heart failure with mild increasing interstitial edema This is a 57-year-old female familiar to our service, patient has been recently admitted and discharged, we saw her on consultation for her COPD and obesity hypoventilation syndrome, with chronic hypoxic respiratory failure, patient however has been recently admitted with atrial fibrillation RVR, and pulmonary edema related to her atrial fibrillation with RVR. She was just discharged 3 days ago by cardiology, patient was readmitted this time with a similar presentation mostly shortness of breath, atrial fibrillation with RVR, and requiring BiPAP treatment upon admission mostly because of her hypoxia and hypercapnia. Patient is morbidly obese, and I saw her again today in the morning for her shortness of breath. Patient was noted to be on BiPAP, 14/6/60%, and her O2 saturation was in the 90s. Patient was hemodynamically stable, her rate seems to be poorly controlled, and cardiology is to address her cardiac arrhythmia/atrial fibrillation with RVR looking back at this patient's history, she is 57 years old with known history of coronary artery disease and stenting, chronic diastolic congestive heart failure, hypertension, chronic atrial fibrillation on Eliquis, non-insulin dependent diabetes, history of chronic venous stasis changes, history of COPD, obstructive sleep apnea syndrome, obesity hypoventilation syndrome, and again as noted above patient had multiple admissions with similar presentation to the hospital Chest x-ray on this admission clearly showed evidence of moderate to severe congestive heart failure Patient was reevaluated today on 08/26/2023, remains on BiPAP, 16/6/60%, patient continues to have some shortness of breath and intermittent episodes of cough. Chest x-ray is showing improvement in her pulmonary edema, doubt underlying pneumonia. Her atrial fibrillation seems to be better controlled. ABG earlier this morning showed a pO2 of 67 pCO2 67 pH of 7.36 WBC count is 9.8 hemoglobin 11.1 basic metabolic profile is normal, renal profile is normal Progress note dated August 27, 2023. 57-year-old female, seen today in room 361. The patient remains on BiPAP, with settings of 16/6, and 65%. The patient is now on oral amiodarone. She also continues on Eliquis. She is not receiving any IV fluids. Lab data today includes a white count of 8.8, hemoglobin 10.9, hematocrit 38.3, and a platelet count of 263,000. Sodium 133, potassium 4.5, chloride 71, CO2 35, BUN 44, creatinine 1.0. Glucose is 117. Procalcitonin level is 0.54. Blood gases yesterday, on FiO2 of 60% show pO2 of 67, pCO2 of 67, and a pH which is nearly normal at 7.36. Progress note dated August 28, 2023. 57-year-old female seen today in room 361. Currently, the patient is on BiPAP at 16/6, and 65%, which is now reduced down to 40%. Her saturations were excellent at 65%. The patient is not receiving any IV fluids. Current lab data includes a white count 7.8, hemoglobin 10.6, hematocrit 34.9, and normal platelet count. Sodium 132, potassium 5.5, chloride 72, CO2 31, BUN 79, creatinine 2.46. Anion gap is normal. Glucose is 103. Procalcitonin level was 0.54. Chest x-ray from 25 August, shows bibasilar infiltrates. The patient continues on breathing treatments, and prednisone. Progress note dated August 29, 2023. 57-year-old female seen today in room 361. The patient continues on BiPAP, with settings of 16/6, and 50%. The patient's not receiving any IV fluids. She is doing about the same today as she did yesterday. Current labs include a white count 10.6, hemoglobin 10.4, hematocrit 35, and a platelet count of 260,000. S odium 134, potassium 4.8, chloride 91, CO2 32, BUN 89, and creatinine 2.81. Glucose is 116. Chest x-ray continues to show bibasilar and perihilar infiltrates. The chest x-ray is largely unchanged. Progress note dated August 30, 2023. 57-year-old female seen in room 361. The patient continues on BiPAP, with settings of 16/6, and 60%. She is not receiving any IV fluids. Her saturations are 94%. Patient is a bit more awake today, and I told the nurse to take her off the BiPAP, and placed her on nasal cannula at between 5 to 6 L, so that she may be can get something to eat. Yesterday, the patient had a blood gas, showing a pO2 of 63, pCO2 of 79, pH of 7.27. That was done on 50%. The patient is clearly a CO2 retainer, so the FiO2 should be titrated down. No additional labs today. Chest x-ray from yesterday shows bibasilar infiltrates. Objective - Vital Signs Vital signs: Vital Signs Temp 98.9 F 08/30/23 09:24 Pulse 95 08/30/23 09:25 Resp 24 08/30/23 09:25 BP 130/81 08/30/23 09:24 Pulse Ox 94 L 08/30/23 09:24 FiO2 60 08/30/23 09:36 Intake & Output 08/29/23 08/30/23 08/30/23 18:59 06:59 18:59 Intake Total 10 20 10 Output Total 400 2750 Balance -390 -2730 10 Weight 87.5 kg Intake: IV 10 20 10 Invasive Line 2 10 20 10 Output: Urine 400 2750 Other: Voiding Method Indwelling Catheter Indwelling Catheter Indwelling Catheter # Bowel Movements 1 1 - Exam No acute distress, currently on BiPAP. Saturations are 94%. HEENT examination is grossly unremarkable. Neck supple. Full range of motion. No adenopathy thyromegaly or neck vein distention. Cardiovascular examination reveals regular rhythm rate. S1-S2 normal. No S3 or S4. A systolic murmur is noted. Heart rate 92 bpm. Heart sounds are distant. Lungs reveal expiratory wheezes and rhonchi. Breath sounds are equal. No crackles. Saturations are 94 % on BiPAP. Abdomen, soft, with bowel sounds. No masses or tenderness. Extremities are intact. No cyanosis clubbing or edema. Skin is without rash or lesion. Neurologic examination is brief but nonfocal. - Labs CBC & Chem 7: 08/29/23 08:54 08/29/23 08:54 Labs: Abnormal Lab Results - Last 24 Hours (Table) 08/29/23 Range/Units 12:29 ABG pH 7.27 L (7.35-7.45) ABG pCO2 79 H* (35-45) mmHg ABG pO2 63 L (83-108) mmHg ABG HCO3 36 H (21-25) mmol/L ABG Total CO2 39 H (19-24) mmol/L ABG O2 Saturation 88.7 L (94-97) % Microbiology - Last 24 Hours (Table) 08/28/23 10:25 Blood Culture - Preliminary Blood Assessment and Plan Assessment: Acute on chronic atrial fibrillation, with RVR, and pulmonary edema. Acute on chronic hypoxemic respiratory failure, multifactorial, part related to diastolic CHF, atrial fibrillation, and COPD. Acute on chronic hypercapnic respiratory failure. Severe obstructive sleep apnea syndrome, currently on CPAP. Childhood asthma. Morbid obesity. Prior history of significant tobacco use. Multiple hospitalizations for COPD, and right lower extremity cellulitis. Previous sputum cultures positive for methicillin-resistant Staph aureus. History of chronic atrial fibrillation. History of hyperlipidemia. History of hypertension. History of coronary artery disease, previous PCI/stent placement. History of myocardial infarction. Chronic anxiety/depression. General medical debility. Plan: Plan dated August 27, 2023. The patient is seen today in room 371. The patient is on oral amiodarone, and Eliquis. She is not receiving any IV fluids. She remains on BiPAP, with settings of 16/6, and 65%. We will continue to follow make recommendations along the way. The patient's overall prognosis remains very guarded. Labs, x- rays, and all medications are reviewed. Plan dated August 28, 2023. The patient is seen today in room 361. The patient continues on BiPAP, with settings of 16/6, and 65%, be turned down to 40%. The patient's not receiving any IV fluids. Labs, x-rays, and medications are reviewed. The patient's overall prognosis remains very guarded. We will continue to follow the patient, make recommendations along the way. The patient is overall prognosis remains very guarded. Plan dated August 29, 2023. The patient was seen today in room 361. The patient continues on BiPAP, with settings of 16/6, and 50%. Saturations are in the mid 90s. Labs, x-rays, and medications are all reviewed. The patient's overall prognosis remains very guarded. We will continue to follow the patient, make recommendations along the way. The patient's overall clinical status remains about the same. Her chest x-ray done today, is unchanged. Plan dated August 30, 2023. The patient is seen today in room 361. She continues on BiPAP, with settings of 16/6, and 60%. That FiO2 should be titrated down, as the patient is a CO2 retainer. Her saturations are perfectly acceptable, between 85 and 92%. Labs, x-rays, medications are reviewed. The blood gas from yesterday was reviewed. I have asked the nurse to take the patient off of BiPAP, and placed her on nasal O2 at between 5 to 6 L. We will continue to follow, and make recommendations along the way. Prognosis is guarded. Time with Patient: Less than 30
[2023-08-30 11:35] LABS: African American GFR (CKD) 43 (>60 ml/min/1.73 sqM); Anion Gap 6 mmol/L; Blood Urea Nitrogen 94 mg/dL (7-17); Calcium 9.1 mg/dL (8.4-10.2); Carbon Dioxide 38 mmol/L (22-30); Chloride 96 mmol/L (98-107); Glucose 98 mg/dL (74-99); Non-African American GFR(CKD) 37 (>60 ml/min/1.73 sqM); Potassium 4.7 mmol/L (3.5-5.1); Sodium 140 mmol/L (137-145)
--- NOTE | 2023-08-30 11:53 | P.PN ---
Subjective HISTORY OF PRESENT ILLNESS: Patient examined this morning at the bedside. Patient currently denies chest pain or pressure. She reports shortness of breath this morning. She remains on BiPAP at the time of examination. Patient is receiving IV diuretics. She also reports a frequent cough. Telemetry reveals atrial fibrillation with heart rate in the 80s. She is currently on IV amiodarone 08/28/2023 Patient examined this morning at the bedside. Patient denies chest pain or pressure. She reports mild shortness of breath. Her main complaint today is lower back discomfort. Patient's creatinine increased to 2.46 from 1.0 yesterday. Potassium 5.5. Patient's blood pressures have been on the low side with a systolic between 8090. 08/29/2023 Patient examined this morning at the bedside. Patient is lethargic this morning upon examination and requires multiple attempts at verbal arousal. Patient remains on BiPAP. Patient's creatinine today is worsened at 2.8. Pressures remain on the low side with a systolic around 90. 08/30/2023 Patient examined this morning at the bedside. Patient currently denies chest pain or pressure. She remains on BiPAP this morning. Patient has been started on IV Lasix. Creatinine 1.56 today. Patient has urinated over 3 L. Vital signs are stable. Blood pressure 130/81. PHYSICAL EXAM: VITAL SIGNS: Reviewed. GENERAL: Well-developed in no acute distress. NECK: Supple. No JVD or thyromegaly LUNGS: Respirations even and unlabored. Lungs diminished bilaterally HEART: Regular rate and rhythm. S1 and S2 heard. EXTREMITIES: Normal range of motion. No clubbing or cyanosis. Peripheral pulses intact. 1-2+ bilateral lower extremity edema ASSESSMENT: Shortness of breath Acute on chronic hypoxic respiratory failure requiring BiPAP Acute COPD exacerbation Acute on chronic heart failure with preserved EF, 50 to 55% Persistent atrial fibrillation Coronary artery disease with previous PCI, details unknown Hypertension Hyperlipidemia Former nicotine dependence Morbid obesity Acute kidney injury likely secondary to hypotension along with diuresis PLAN: Continue current dose of metoprolol and amiodarone as patient had difficulty controlling atrial fibrillation on admission Cardizem and lisinopril have been discontinued Continue IV diuretics per nephrology Continue to monitor kidney function Further recommendations pending patient course Nurse practitioner note has been reviewed by physician. Signing provider agrees with the documented findings, assessment, and plan of care documented by VENEER SAMPLE MAKER as a scribe. Objective - Vital Signs Vital signs: Vital Signs Temp 98.9 F 08/30/23 09:24 Pulse 87 08/30/23 11:45 Resp 24 08/30/23 11:45 BP 130/81 08/30/23 09:24 Pulse Ox 94 L 08/30/23 09:24 FiO2 60 08/30/23 11:36 Intake & Output 08/29/23 08/30/23 08/30/23 18:59 06:59 18:59 Intake Total 10 20 10 Output Total 400 2750 Balance -390 -2730 10 Weight 87.5 kg Intake: IV 10 20 10 Invasive Line 2 10 20 10 Output: Urine 400 2750 Other: Voiding Method Indwelling Catheter Indwelling Catheter Indwelling Catheter # Bowel Movements 1 1 - Labs CBC & Chem 7: 08/29/23 08:54 08/30/23 10:03 Labs: Abnormal Lab Results - Last 24 Hours (Table) 08/29/23 08/30/23 Range/Units 12:29 10:03 ABG pH 7.27 L (7.35-7.45) ABG pCO2 79 H* (35-45) mmHg ABG pO2 63 L (83-108) mmHg ABG HCO3 36 H (21-25) mmol/L ABG Total CO2 39 H (19-24) mmol/L ABG O2 Saturation 88.7 L (94-97) % Chloride 96 L (98-107) mmol/L Carbon Dioxide 38 H (22-30) mmol/L BUN 94 H (7-17) mg/dL Creatinine 1.56 H (0.52-1.04) mg/dL Microbiology - Last 24 Hours (Table) 08/28/23 10:25 Blood Culture - Preliminary Blood
[2023-08-30 11:57] LABS: Anisocytosis Slight; Basophils % (A) 0 %; Eosinophils % (A) 0 %; HCT 36.5 % (34.0-46.0); Hypochromasia Moderate; Lymphocytes # (A) 0.6 k/uL (1.0-4.8); Lymphocytes % (A) 7 %; MCH 26.4 pg (25.0-35.0); MCHC 30.1 g/dL (31.0-37.0); MCV 87.9 fL (80.0-100.0); Mean Platelet Volume 9.1; Monocytes # (A) 0.3 k/uL (0-1.0); Monocytes % (A) 4 %; Neutrophils # (A) 7.5 k/uL (1.3-7.7); Neutrophils % (A) 88 %; Platelet Count 293 k/uL (150-450); RBC 4.15 m/uL (3.80-5.40); RDW 18.6 % (11.5-15.5); WBC 8.5 k/uL (3.8-10.6)
--- NOTE | 2023-08-30 12:12 | P.PN ---
Subjective patient is seen for follow-up for acute kidney injury. Started on midodrine for low blood pressure and Haresh inhibitors are on hold. blood pressure remains on the lower side but much improved. Patient has diuresed well with IV Lasix. Urine output noted at 3 L for 24 hours. Patient is maintained on BiPAP. She is awake and answering questions jacob ropriately. Objective - Vital Signs Vital signs: Vital Signs Temp 98.9 F 08/30/23 09:24 Pulse 87 08/30/23 11:54 Resp 25 H 08/30/23 11:54 BP 104/72 08/30/23 11:54 Pulse Ox 90 L 08/30/23 11:54 FiO2 60 08/30/23 11:54 Intake & Output 08/29/23 08/30/23 08/30/23 18:59 06:59 18:59 Intake Total 10 20 10 Output Total 400 2750 Balance -390 -2730 10 Weight 87.5 kg Intake: IV 10 20 10 Invasive Line 2 10 20 10 Output: Urine 400 2750 Other: Voiding Method Indwelling Catheter Indwelling Catheter Indwelling Catheter # Bowel Movements 1 1 - Exam patient is awake, comfortable She is currently on BiPAP Examination of the heart S1 and S2 Examination of the lungs bilateral breath sounds are heard decreased breath sounds at the bases Abdomen is soft morbidly obese Examination of lower extremity shows edema 1+ bilaterally [employer]IP[employer] 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 intact - Labs CBC & Chem 7: 08/30/23 10:12 08/30/23 10:03 Labs: Abnormal Lab Results - Last 24 Hours (Table) 08/29/23 08/30/23 08/30/23 Range/Units 12:29 10:03 10:12 Hgb 11.0 L (11.4-16.0) gm/dL MCHC 30.1 L (31.0-37.0) g/dL RDW 18.6 H (11.5-15.5) % Lymphocytes # 0.6 L (1.0-4.8) k/uL ABG pH 7.27 L (7.35-7.45) ABG pCO2 79 H* (35-45) mmHg ABG pO2 63 L (83-108) mmHg ABG HCO3 36 H (21-25) mmol/L ABG Total CO2 39 H (19-24) mmol/L ABG O2 Saturation 88.7 L (94-97) % Chloride 96 L (98-107) mmol/L Carbon Dioxide 38 H (22-30) mmol/L BUN 94 H (7-17) mg/dL Creatinine 1.56 H (0.52-1.04) mg/dL Microbiology - Last 24 Hours (Table) 08/28/23 10:25 Blood Culture - Preliminary Blood Assessment and Plan Assessment: 1. Acute kidney injury secondary to hypotension in the setting of use of HARESH inhibitor's. Currently off of lisinopril. Blood pressure remains low. Patient has been started on midodrine. No urine retention noted. UA is quite benign. Diuresing well and renal function has improved today. 2. Hyperkalemia associated with acute kidney injury 3. Acute hypoxic respiratory failure secondary to CHF exacerbation 4. Chronic diastolic heart failure 5. Metabolic alkalosis associated with underlying COPD and diuresis Plan: continue IV Lasix Continue with midodrine add Diamox Repeat labs in a.m.
[2023-08-30] MEDS: acetaZOLAMIDE 250 MG TAB PO SCH (12:23)
[2023-08-31 09:31] LABS: Anisocytosis Slight; Basophils % (A) 0 %; Eosinophils % (A) 0 %; HCT 40.3 % (34.0-46.0); HGB 11.8 gm/dL (11.4-16.0); Hypochromasia Marked; Lymphocytes # (A) 0.8 k/uL (1.0-4.8); Lymphocytes % (A) 10 %; MCH 26.4 pg (25.0-35.0); MCHC 29.3 g/dL (31.0-37.0); MCV 90.2 fL (80.0-100.0); Mean Platelet Volume 8.9; Monocytes # (A) 0.4 k/uL (0-1.0); Monocytes % (A) 4 %; Neutrophils # (A) 7.1 k/uL (1.3-7.7); Neutrophils % (A) 84 %; Platelet Count 313 k/uL (150-450); RBC 4.47 m/uL (3.80-5.40); RDW 18.4 % (11.5-15.5); WBC 8.5 k/uL (3.8-10.6)
[2023-08-31 09:48] LABS: African American GFR (CKD) 73 (>60 ml/min/1.73 sqM); Anion Gap 9 mmol/L; Blood Urea Nitrogen 71 mg/dL (7-17); Calcium 9.5 mg/dL (8.4-10.2); Carbon Dioxide 39 mmol/L (22-30); Chloride 94 mmol/L (98-107); Glucose 97 mg/dL (74-99); Non-African American GFR(CKD) 64 (>60 ml/min/1.73 sqM); Sodium 142 mmol/L (137-145)
[2023-08-31 10:02] LABS: Potassium 4.8 mmol/L (3.5-5.1)
--- NOTE | 2023-08-31 10:12 | XR ---
EXAMINATION TYPE: XR chest 1V portable DATE OF EXAM: 08/31/2023 HISTORY: Shortness of breath. COMPARISON: 08/29/2023 TECHNIQUE: Single view of the chest is submitted. FINDINGS: Demonstrated are scattered senescent parenchymal change. Coarse perihilar and basilar infiltrates could reflect pneumonia however congestive failure is not ex cluded. Correlate clinically. No sizable pleural effusions. The heart is stable. Hilar and mediastinal structures are within normal limits. Degenerative changes are seen of the dorsal spine. IMPRESSION: 1. Coarse perihilar and basilar infiltrates could reflect pneumonia however congestive failure is no t excluded. Correlate clinically. No sizable pleural effusions.
--- NOTE | 2023-08-31 10:33 | P.PN ---
Subjective patient is seen for follow-up for acute kidney injury. Started on midodrine for low blood pressure and Haresh inhibitors are on hold. blood pressure remains on the lower side but much improved. Patient has diuresed well with IV Lasix. Urine output noted at 4 L for 24 hours. Patient is maintained on BiPAP. She is awake and answering questions jacob ropriately. Renal function has improved with creatinine down to 1.0. Objective - Vital Signs Vital signs: Vital Signs Temp 98.8 F 08/31/23 07:53 Pulse 102 H 08/31/23 08:58 Resp 27 H 08/31/23 09:06 BP 109/80 08/31/23 07:53 Pulse Ox 91 L 08/31/23 09:06 FiO2 50 08/31/23 09:06 Intake & Output 08/30/23 08/31/23 08/31/23 18:59 06:59 18:59 Intake Total 20 Output Total 2400 1600 600 Balance -2380 -1600 -600 Intake: IV 20 Invasive Line 2 20 Output: Urine 2400 1600 600 Other: Voiding Method Indwelling Catheter Indwelling Catheter Indwelling Catheter # Bowel Movements 1 - Exam patient is awake, comfortable She is currently on BiPAP Examination of the heart S1 and S2 Examination of the lungs bilateral breath sounds are heard decreased breath sounds at the bases Abdomen is soft morbidly obese Examination of lower extremity shows edema 1+ bilaterally [employer] 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 intact - Labs CBC & Chem 7: 08/31/23 08:45 08/31/23 08:45 Labs: Abnormal Lab Results - Last 24 Hours (Table) 08/30/23 08/30/23 08/30/23 Range/Units 10:03 10:03 10:12 Hgb 11.0 L (11.4-16.0) gm/dL MCHC 30.1 L (31.0-37.0) g/dL RDW 18.6 H (11.5-15.5) % Lymphocytes # 0.6 L (1.0-4.8) k/uL Chloride 96 L (98-107) mmol/L Carbon Dioxide 38 H (22-30) mmol/L BUN 94 H (7-17) mg/dL Creatinine 1.56 H (0.52-1.04) mg/dL Procalcitonin 0.34 H (0.02-0.09) ng/mL 08/31/23 08/31/23 Range/Units 08:45 08:45 Hgb (11.4-16.0) gm/dL MCHC 29.3 L (31.0-37.0) g/dL RDW 18.4 H (11.5-15.5) % Lymphocytes # 0.8 L (1.0-4.8) k/uL Chloride 94 L (98-107) mmol/L Carbon Dioxide 39 H (22-30) mmol/L BUN 71 H (7-17) mg/dL Creatinine (0.52-1.04) mg/dL Procalcitonin (0.02-0.09) ng/mL Microbiology - Last 24 Hours (Table) 08/28/23 10:25 Blood Culture - Preliminary Blood Assessment and Plan Assessment: 1. Acute kidney injury secondary to hypotension in the setting of use of HARESH inhibitor's. Currently off of lisinopril. Blood pressure remains low. Patient has been started on midodrine. No urine retention noted. UA is quite benign. Diuresing well and renal function has improved. 2. Hyperkalemia associated with acute kidney injury 3. Acute hypoxic respiratory failure secondary to CHF exacerbation 4. Chronic diastolic heart failure 5. Metabolic alkalosis associated with underlying COPD and diuresis Plan: continue IV Lasix Continue with midodrine continue Diamox x 24-48 hrs Repeat labs in a.m.
--- NOTE | 2023-08-31 11:41 | P.PN ---
Subjective Progress Note Date: 08/31/23 Principal diagnosis: COPD exacerbation. Acute on chronic hypoxemic respiratory failure secondary to an acute exacerbation of diastolic congestive heart failure with mild increasing interstitial edema This is a 57-year-old female familiar to our service, patient has been recently admitted and discharged, we saw her on consultation for her COPD and obesity hypoventilation syndrome, with chronic hypoxic respiratory failure, patient however has been recently admitted with atrial fibrillation RVR, and pulmonary edema related to her atrial fibrillation with RVR. She was just discharged 3 days ago by cardiology, patient was readmitted this time with a similar presentation mostly shortness of breath, atrial fibrillation with RVR, and requiring BiPAP treatment upon admission mostly because of her hypoxia and hypercapnia. Patient is morbidly obese, and I saw her again today in the morning for her shortness of breath. Patient was noted to be on BiPAP, 14/6/60%, and her O2 saturation was in the 90s. Patient was hemodynamically stable, her rate seems to be poorly controlled, and cardiology is to address her cardiac arrhythmia/atrial fibrillation with RVR looking back at this patient's history, she is 57 years old with known history of coronary artery disease and stenting, chronic diastolic congestive heart failure, hypertension, chronic atrial fibrillation on Eliquis, non-insulin dependent diabetes, history of chronic venous stasis changes, history of COPD, obstructive sleep apnea syndrome, obesity hypoventilation syndrome, and again as noted above patient had multiple admissions with similar presentation to the hospital Chest x-ray on this admission clearly showed evidence of moderate to severe congestive heart failure Patient was reevaluated today on 08/26/2023, remains on BiPAP, 16/6/60%, patient continues to have some shortness of breath and intermittent episodes of cough. Chest x-ray is showing improvement in her pulmonary edema, doubt underlying pneumonia. Her atrial fibrillation seems to be better controlled. ABG earlier this morning showed a pO2 of 67 pCO2 67 pH of 7.36 WBC count is 9.8 hemoglobin 11.1 basic metabolic profile is normal, renal profile is normal Progress note dated August 27, 2023. 57-year-old female, seen today in room 361. The patient remains on BiPAP, with settings of 16/6, and 65%. The patient is now on oral amiodarone. She also continues on Eliquis. She is not receiving any IV fluids. Lab data today includes a white count of 8.8, hemoglobin 10.9, hematocrit 38.3, and a platelet count of 263,000. Sodium 133, potassium 4.5, chloride 71, CO2 35, BUN 44, creatinine 1.0. Glucose is 117. Procalcitonin level is 0.54. Blood gases yesterday, on FiO2 of 60% show pO2 of 67, pCO2 of 67, and a pH which is nearly normal at 7.36. Progress note dated August 28, 2023. 57-year-old female seen today in room 361. Currently, the patient is on BiPAP at 16/6, and 65%, which is now reduced down to 40%. Her saturations were excellent at 65%. The patient is not receiving any IV fluids. Current lab data includes a white count 7.8, hemoglobin 10.6, hematocrit 34.9, and normal platelet count. Sodium 132, potassium 5.5, chloride 72, CO2 31, BUN 79, creatinine 2.46. Anion gap is normal. Glucose is 103. Procalcitonin level was 0.54. Chest x-ray from 25 August, shows bibasilar infiltrates. The patient continues on breathing treatments, and prednisone. Progress note dated August 29, 2023. 57-year-old female seen today in room 361. The patient continues on BiPAP, with settings of 16/6, and 50%. The patient's not receiving any IV fluids. She is doing about the same today as she did yesterday. Current labs include a white count 10.6, hemoglobin 10.4, hematocrit 35, and a platelet count of 260,000. S odium 134, potassium 4.8, chloride 91, CO2 32, BUN 89, and creatinine 2.81. Glucose is 116. Chest x-ray continues to show bibasilar and perihilar infiltrates. The chest x-ray is largely unchanged. Progress note dated August 30, 2023. 57-year-old female seen in room 361. The patient continues on BiPAP, with settings of 16/6, and 60%. She is not receiving any IV fluids. Her saturations are 94%. Patient is a bit more awake today, and I told the nurse to take her off the BiPAP, and placed her on nasal cannula at between 5 to 6 L, so that she may be can get something to eat. Yesterday, the patient had a blood gas, showing a pO2 of 63, pCO2 of 79, pH of 7.27. That was done on 50%. The patient is clearly a CO2 retainer, so the FiO2 should be titrated down. No additional labs today. Chest x-ray from yesterday shows bibasilar infiltrates. Progress note dated August 31, 2023. 57-year-old female, seen in room 361. The patient continues on BiPAP, with settings of 16/6, and 50%. She is not receiving any IV fluids. We did order a portable chest x-ray on her today. She did not spend much time, on nasal cannula, and on 6 L, her saturations dropped to 84% current labs include a white count 8.5, hemoglobin 11.8, hematocrit 40.3, and a normal platelet count of 313,000. Sodium 142, potassium 4.8, chloride 94, CO2 39, BUN 71, creatinine 1.0. Glucose is 97. Procalcitonin level is 0.34. Chest x-ray shows bilateral basilar infiltrates, consistent with either CHF, and or pneumonia. Blood cultures are currently negative. Objective - Vital Signs Vital signs: Vital Signs Temp 98.8 F 08/31/23 07:53 Pulse 102 H 08/31/23 08:58 Resp 27 H 08/31/23 09:06 BP 109/80 08/31/23 07:53 Pulse Ox 91 L 08/31/23 09:06 FiO2 50 08/31/23 09:06 Intake & Output 08/30/23 08/31/23 08/31/23 18:59 06:59 18:59 Intake Total 20 Output Total 2400 1600 600 Balance -2380 -1600 -600 Intake: IV 20 Invasive Line 2 20 Output: Urine 2400 1600 600 Other: Voiding Method Indwelling Catheter Indwelling Catheter Indwelling Catheter # Bowel Movements 1 - Exam No acute distress, currently on BiPAP. Saturations are 93 %. HEENT examination is grossly unremarkable. Neck supple. Full range of motion. No adenopathy thyromegaly or neck vein distention. Cardiovascular examination reveals regular rhythm rate. S1-S2 normal. No S3 or S4. A systolic murmur is noted. Heart rate 98 bpm. Heart sounds are distant. Lungs reveal expiratory wheezes and rhonchi. Breath sounds are equal. No crackles. Saturations are 93 % on BiPAP. Abdomen, soft, with bowel sounds. No masses or tenderness. Extremities are intact. No cyanosis clubbing or edema. Skin is without rash or lesion. Neurologic examination is brief but nonfocal. - Labs CBC & Chem 7: 08/31/23 08:45 08/31/23 08:45 Labs: Abnormal Lab Results - Last 24 Hours (Table) 08/30/23 08/30/23 08/31/23 Range/Units 10:03 10:12 08:45 Hgb 11.0 L (11.4-16.0) gm/dL MCHC 30.1 L 29.3 L (31.0-37.0) g/dL RDW 18.6 H 18.4 H (11.5-15.5) % Lymphocytes # 0.6 L 0.8 L (1.0-4.8) k/uL Chloride (98-107) mmol/L Carbon Dioxide (22-30) mmol/L BUN (7-17) mg/dL Procalcitonin 0.34 H (0.02-0.09) ng/mL 08/31/23 Range/Units 08:45 Hgb (11.4-16.0) gm/dL MCHC (31.0-37.0) g/dL RDW (11.5-15.5) % Lymphocytes # (1.0-4.8) k/uL Chloride 94 L (98-107) mmol/L Carbon Dioxide 39 H (22-30) mmol/L BUN 71 H (7-17) mg/dL Procalcitonin (0.02-0.09) ng/mL Microbiology - Last 24 Hours (Table) 08/28/23 10:25 Blood Culture - Preliminary Blood Assessment and Plan Assessment: Acute on chronic atrial fibrillation, with RVR, and pulmonary edema. Acute on chronic hypoxemic respiratory failure, multifactorial, part related to diastolic CHF, atrial fibrillation, and COPD. Acute on chronic hypercapnic respiratory failure. Severe obstructive sleep apnea syndrome, currently on CPAP. Childhood asthma. Morbid obesity. Prior history of significant tobacco use. Multiple hospitalizations for COPD, and right lower extremity cellulitis. Previous sputum cultures positive for methicillin-resistant Staph aureus. History of chronic atrial fibrillation. History of hyperlipidemia. History of hypertension. History of coronary artery disease, previous PCI/stent placement. History of myocardial infarction. Chronic anxiety/depression. General medical debility. Plan: Plan dated August 27, 2023. The patient is seen today in room 371. The patient is on oral amiodarone, and Eliquis. She is not receiving any IV fluids. She remains on BiPAP, with settings of 16/6, and 65%. We will continue to follow make recommendations along the way. The patient's overall prognosis remains very guarded. Labs, x- rays, and all medications are reviewed. Plan dated August 28, 2023. The patient is seen today in room 361. The patient continues on BiPAP, with settings of 16/6, and 65%, be turned down to 40%. The patient's not receiving any IV fluids. Labs, x-rays, and medications are reviewed. The patient's overall prognosis remains very guarded. We will continue to follow the patient, make recommendations along the way. The patient is overall prognosis remains very guarded. Plan dated August 29, 2023. The patient was seen today in room 361. The patient continues on BiPAP, with settings of 16/6, and 50%. Saturations are in the mid 90s. Labs, x-rays, and medications are all reviewed. The patient's overall prognosis remains very guarded. We will continue to follow the patient, make recommendations along the way. The patient's overall clinical status remains about the same. Her chest x-ray done today, is unchanged. Plan dated August 30, 2023. The patient is seen today in room 361. She continues on BiPAP, with settings of 16/6, and 60%. That FiO2 should be titrated down, as the patient is a CO2 retainer. Her saturations are perfectly acceptable, between 85 and 92%. Labs, x-rays, medications are reviewed. The blood gas from yesterday was reviewed. I have asked the nurse to take the patient off of BiPAP, and placed her on nasal O2 at between 5 to 6 L. We will continue to follow, and make recommendations along the way. Prognosis is guarded. Plan dated August 31, 2023. The patient is seen today in room 361. The patient continues on BiPAP, at 16/6, and 50%. The patient's saturations on 6 L normally 84%. Chest x-ray is consistent with either pneumonia, and/or heart failure. Labs, x-rays, and medications are reviewed. We will continue to follow, and make recommendations along the way. Prognosis is certainly guarded. Time with Patient: Less than 30
--- NOTE | 2023-08-31 12:26 | P.PN ---
Subjective HISTORY OF PRESENT ILLNESS: Patient examined this morning at the bedside. Patient currently denies chest pain or pressure. She reports shortness of breath this morning. She remains on BiPAP at the time of examination. Patient is receiving IV diuretics. She also reports a frequent cough. Telemetry reveals atrial fibrillation with heart rate in the 80s. She is currently on IV amiodarone 08/28/2023 Patient examined this morning at the bedside. Patient denies chest pain or pressure. She reports mild shortness of breath. Her main complaint today is lower back discomfort. Patient's creatinine increased to 2.46 from 1.0 yesterday. Potassium 5.5. Patient's blood pressures have been on the low side with a systolic between 8090. 08/29/2023 Patient examined this morning at the bedside. Patient is lethargic this morning upon examination and requires multiple attempts at verbal arousal. Patient remains on BiPAP. Patient's creatinine today is worsened at 2.8. Pressures remain on the low side with a systolic around 90. 08/30/2023 Patient examined this morning at the bedside. Patient currently denies chest pain or pressure. She remains on BiPAP this morning. Patient has been started on IV Lasix. Creatinine 1.56 today. Patient has urinated over 3 L. Vital signs are stable. Blood pressure 130/81. 08/31/2023 Patient examined this morning at the bedside. Patient remains on BiPAP. She denies chest pain or pressure. She reports improvement in her shortness of breath. She remains on IV Lasix. Urine output over the last 24 hours is 4 L. Creatinine today is 1.0. Blood pressures have improved with a systolic greater than 100. PHYSICAL EXAM: VITAL SIGNS: Reviewed. GENERAL: Well-developed in no acute distress. NECK: Supple. No JVD or thyromegaly LUNGS: Respirations even and unlabored. Lungs diminished bilaterally HEART: Regular rate and rhythm. S1 and S2 heard. EXTREMITIES: Normal range of motion. No clubbing or cyanosis. Peripheral pulses intact. 1-2+ bilateral lower extremity edema ASSESSMENT: Shortness of breath Acute on chronic hypoxic respiratory failure requiring BiPAP Acute COPD exacerbation Acute on chronic heart failure with preserved EF, 50 to 55% Persistent atrial fibrillation Coronary artery disease with previous PCI, details unknown Hypertension Hyperlipidemia Former nicotine dependence Morbid obesity Acute kidney injury likely secondary to hypotension along with diuresis PLAN: Continue current dose of metoprolol and amiodarone as patient had difficulty controlling atrial fibrillation on admission Cardizem and lisinopril have been discontinued secondary to hypotension Continue IV diuretics per nephrology Continue to monitor kidney function Further recommendations pending patient course Nurse practitioner note has been reviewed by physician. Signing provider agrees with the documented findings, assessment, and plan of care documented by REMEDIATION CONSULTANT as a scribe. Objective - Vital Signs Vital signs: Vital Signs Temp 98.8 F 08/31/23 07:53 Pulse 98 08/31/23 12:06 Resp 27 H 08/31/23 11:37 BP 118/81 08/31/23 11:37 Pulse Ox 92 L 08/31/23 11:37 FiO2 50 08/31/23 11:55 Intake & Output 08/30/23 08/31/23 08/31/23 18:59 06:59 18:59 Intake Total 20 Output Total 2400 1600 600 Balance -2380 -1600 -600 Intake: IV 20 Invasive Line 2 20 Output: Urine 2400 1600 600 Other: Voiding Method Indwelling Catheter Indwelling Catheter Indwelling Catheter # Bowel Movements 1 - Labs CBC & Chem 7: 08/31/23 08:45 08/31/23 08:45 Labs: Abnormal Lab Results - Last 24 Hours (Table) 08/30/23 08/31/23 08/31/23 Range/Units 10:03 08:45 08:45 MCHC 29.3 L (31.0-37.0) g/dL RDW 18.4 H (11.5-15.5) % Lymphocytes # 0.8 L (1.0-4.8) k/uL Chloride 94 L (98-107) mmol/L Carbon Dioxide 39 H (22-30) mmol/L BUN 71 H (7-17) mg/dL Procalcitonin 0.34 H (0.02-0.09) ng/mL Microbiology - Last 24 Hours (Table) 08/28/23 10:25 Blood Culture - Preliminary Blood
--- NOTE | 2023-08-31 13:24 | P.PN ---
Subjective Progress Note Date: 08/31/23 Patient is a 57-year-old female with a past medical history of CAD with stenting, chronic diastolic heart failure, hypertension, hyperlipidemia, chronic atrial fibrillation on anticoagulation with Eliquis, type II [id number] diabetes mellitus, chronic venous stasis dermatitis with chronic bilateral lower extremity edema, severe obstructive sleep apnea CPAP dependent, and chronic hypoxic respiratory failure secondary to advanced COPD home oxygen dependent 3 L presented to the ER for worsening shortness of breath. Patient was only discharged on hospital day ago, patient stated she was all right till today when in the afternoon started noticing that her breathing was getting worse. Patient was complaining of her heart beating fast and her chest feeling tight. Patient complains of shortness of breath at rest and on exertion as well. Patient denies any fever or chills. There is no complaint of orthopnea or PND. Because of these worsening symptoms, patient called EMS and she was brought to the ER Initial lab work done in the ER showed WBC 11.1, hemoglobin 12.2, platelet count 271, sodium 137, potassium 4.3, BUN 27, creatinine 0.61, lactate 1.4, troponin 0.012, proBNP 5490 EKG done in the ER showed heart rate of 114, QRS 81, irregular rate and rhythm, no ST segment elevation or depression seen, no T-wave inversions seen. Chest x-ray done in the ER moderate to severe CHF Patient admitted to internal medicine service 08/25. Patient seen and examined. Patient was in respiratory distress overnight, continues to be in A-fib with rapid ventricular rate, was started on amiodarone drip. Currently on BiPAP with FiO2 60% 08/27/2023 Patient today is awake and alert at baseline She still complaining from significant dyspnea, currently on BiPAP She remains on IV Lasix 40 mg twice daily, as well as her Eliquis and prednisone burst taper Amiodarone drip switched to oral amiodarone 400 mg today. 08/28/2023 patient still dyspneic start requiring BiPAP. She Answers Questions Appropriately but Looks Tired She Denies Chest Pain or Abdominal Pain. Blood Pressure Is Borderline and This Morning Was 80/40, Blood Pressure Pills Were Held Patient with No Fever Still Tachypneic but Not Tachycardic Her Creatinine Jumped up 1.0 up to 2.4 Therefore We Switch Her IV Lasix to Oral and Hold Her Lisinopril and Other Blood Pressure Normal This Morning. We'll Keep Monitoring Blood Pressure and Creatinine for Now. We'll Send for Urine Analysis Bladder Scan Is 0 Currently she is on Eliquis 5 mg prednisone 30 mg 08/29/2023 Patient remains on BiPAP, today it is somewhat lower lethargic and harder to wake up. Mostly this is related to her metabolic encephalopathy as she has significantly worsening renal function yesterday up to 2.4 which might be contributing besides other medical problems affecting her mentation. Patient is afebrile, Blood pressure slightly better 90/57, she is still tachypneic with a rate around 25, Labs from today are pending She has renal ultrasound which I reviewed myself showing no hydronephrosis but incidental finding of cholelithiasis 5.5 x 6 2.7 x 1.8 cm. She remains on Eliquis 5 mg, Lasix Cardizem and Aldactone held Continue with metoprolol 100 mg and midodrine 5 mg was added Also she is on amiodarone. 08/30/2023 Patient on BiPAP this morning, she is more awake and alert, she follows commands and answers questions appropriately She still have some difficulty breathing and BiPAP is helping her. She denies abdominal pain or chest pain. Blood pressure improved currently 108/75, patient is tachypneic with a breathing rate 26-27 Chest x-ray showing bibasilar infiltrates Creatinine was 2.8 Patient remains on IV Lasix and prednisone 30 mg and Eliquis 5 mg Aldactone and lisinopril are placed on hold. Midodrine is currently 5 mg 3 times per day. 08/30. Patient seen and examined. Continues to be on BiPAP. States that she gets short of breath on slight exertion. REVIEW OF SYSTEMS: CONSTITUTIONAL: No fever, no malaise,. CARDIOVASCULAR: No chest pain, no palpitations, no syncope. PULMONARY: As mentioned above GASTROINTESTINAL: No diarrhea, no nausea, no vomiting, no abdominal pain. NEUROLOGICAL: No headaches, no weakness, PHYSICAL EXAMINATION: GENERAL: The patient is alert and oriented x3, currently on BiPAP HEENT: Pupils are round and equally reacting to light. EOMI. No scleral icterus. No conjunctival pallor. Normocephalic, atraumatic. No pharyngeal erythema. No thyromegaly. CARDIOVASCULAR: S1 and S2 present. No murmurs, rubs, or gallops. Irregular rate and rhythm PULMONARY: Coarse breath sounds bilaterally, bilateral crackles audible ABDOMEN: Soft, nontender, nondistended, normoactive bowel sounds. No palpable organomegaly. MUSCULOSKELETAL: No joint swelling or deformity. EXTREMITIES: 1+ pitting edema NEUROLOGICAL: Gross neurological examination did not reveal any focal deficits. SKIN: No rashes. Assessment and plan Acute on chronic hypoxic respiratory failure Acute on chronic diastolic heart failure exacerbation COPD with chronic oxygen dependency, baseline 3-4 L at all times Severe obstructive sleep apnea. Atrial fibrillation with RVR in pt with Chronic atrial fibrillation on anticoagulation with Eliquis CAD with previous stent Hypertension Hyperlipidemia Bilateral lower extremity edema with venous stasis dermatitis. Type II [id number] diabetes mellitus with hemoglobin A1c of 7%. Morbid obesity with BMI of 50.8 kg/m Monitor vital signs Monitor CBC Monitor CMP Continue telemetry monitoring Continue oxygen supplementation Continue BiPAP Strict I's and O's, daily weights Continue IV Lasix 40 mg twice daily Continue amiodarone, Lopressor. Continue midodrine Continue Farxiga Continue breathing treatments with [facility] Cardiology following Pulmonology following Nephrology following Labs and medication were reviewed.. Continue same treatment. Continue with symptomatic treatment. Resume home medication. Monitor labs and vitals. DVT and GI prophylaxis. Further recommendations as per clinical course of the patient Dictation was produced using [employer] dictation software. please excuse any grammatical, word or spelling errors. Objective - Vital Signs Vital signs: Vital Signs Temp 98.8 F 08/31/23 07:53 Pulse 102 H 08/31/23 08:58 Resp 27 H 08/31/23 09:06 BP 109/80 08/31/23 07:53 Pulse Ox 91 L 08/31/23 09:06 FiO2 50 08/31/23 09:06 Intake & Output 08/30/23 08/31/23 08/31/23 18:59 06:59 18:59 Intake Total 20 Output Total 2400 1600 Balance -2380 -1600 Intake: IV 20 Invasive Line 2 20 Output: Urine 2400 1600 Other: Voiding Method Indwelling Catheter Indwelling Catheter Indwelling Catheter # Bowel Movements 1 - Labs CBC & Chem 7: 08/31/23 08:45 08/31/23 08:45 Labs: Abnormal Lab Results - Last 24 Hours (Table) 08/30/23 08/30/23 08/30/23 Range/Units 10:03 10:03 10:12 Hgb 11.0 L (11.4-16.0) gm/dL MCHC 30.1 L (31.0-37.0) g/dL RDW 18.6 H (11.5-15.5) % Lymphocytes # 0.6 L (1.0-4.8) k/uL Chloride 96 L (98-107) mmol/L Carbon Dioxide 38 H (22-30) mmol/L BUN 94 H (7-17) mg/dL Creatinine 1.56 H (0.52-1.04) mg/dL Procalcitonin 0.34 H (0.02-0.09) ng/mL 08/31/23 Range/Units 08:45 Hgb (11.4-16.0) gm/dL MCHC 29.3 L (31.0-37.0) g/dL RDW 18.4 H (11.5-15.5) % Lymphocytes # 0.8 L (1.0-4.8) k/uL Chloride (98-107) mmol/L Carbon Dioxide (22-30) mmol/L BUN (7-17) mg/dL Creatinine (0.52-1.04) mg/dL Procalcitonin (0.02-0.09) ng/mL Microbiology - Last 24 Hours (Table) 08/28/23 10:25 Blood Culture - Preliminary Blood
[2023-09-01 10:56] LABS: Anisocytosis Slight; Basophils # (A) 0.1 k/uL (0-0.2); Basophils % (A) 1 %; Eosinophils # (A) 0.1 k/uL (0-0.7); Eosinophils % (A) 1 %; HCT 41.4 % (34.0-46.0); HGB 11.8 gm/dL (11.4-16.0); Hypochromasia Marked; Lymphocytes # (A) 1.2 k/uL (1.0-4.8); Lymphocytes % (A) 11 %; MCHC 28.5 g/dL (31.0-37.0); MCV 91.2 fL (80.0-100.0); Mean Platelet Volume 8.7; Monocytes # (A) 0.5 k/uL (0-1.0); Monocytes % (A) 5 %; Neutrophils # (A) 8.3 k/uL (1.3-7.7); Neutrophils % (A) 81 %; Platelet Count 379 k/uL (150-450); RBC 4.54 m/uL (3.80-5.40); RDW 18.3 % (11.5-15.5); WBC 10.3 k/uL (3.8-10.6)
--- NOTE | 2023-09-01 11:44 | P.PN ---
Subjective HISTORY OF PRESENT ILLNESS: Patient examined this morning at the bedside. Patient currently denies chest pain or pressure. She reports shortness of breath this morning. She remains on BiPAP at the time of examination. Patient is receiving IV diuretics. She also reports a frequent cough. Telemetry reveals atrial fibrillation with heart rate in the 80s. She is currently on IV amiodarone 08/28/2023 Patient examined this morning at the bedside. Patient denies chest pain or pressure. She reports mild shortness of breath. Her main complaint today is lower back discomfort. Patient's creatinine increased to 2.46 from 1.0 yesterday. Potassium 5.5. Patient's blood pressures have been on the low side with a systolic between 8090. 08/29/2023 Patient examined this morning at the bedside. Patient is lethargic this morning upon examination and requires multiple attempts at verbal arousal. Patient remains on BiPAP. Patient's creatinine today is worsened at 2.8. Pressures remain on the low side with a systolic around 90. 08/30/2023 Patient examined this morning at the bedside. Patient currently denies chest pain or pressure. She remains on BiPAP this morning. Patient has been started on IV Lasix. Creatinine 1.56 today. Patient has urinated over 3 L. Vital signs are stable. Blood pressure 130/81. 08/31/2023 Patient examined this morning at the bedside. Patient remains on BiPAP. She denies chest pain or pressure. She reports improvement in her shortness of breath. She remains on IV Lasix. Urine output over the last 24 hours is 4 L. Creatinine today is 1.0. Blood pressures have improved with a systolic greater than 100. 09/01/2023 Patient examined this morning at the bedside. Patient is much more awake today. Patient's daughter is at the bedside. Patient denies chest pain or pressure. She remains on BiPAP at the time of examination. She currently denies shortness of breath. She remains on IV diuretics. BNP yesterday 2460. Acute kidney injury has resolved. Creatinine yesterday 1.0. She remains in atrial fibrillation with a heart rate in the [id number]. Blood pressure has improved with a recent reading of 116/80. PHYSICAL EXAM: VITAL SIGNS: Reviewed. GENERAL: Well-developed in no acute distress. NECK: Supple. No JVD or thyromegaly LUNGS: Respirations even and unlabored. Lungs diminished bilaterally HEART: Regular rate and rhythm. S1 and S2 heard. EXTREMITIES: Normal range of motion. No clubbing or cyanosis. Peripheral pulses intact. 1-2+ bilateral lower extremity edema ASSESSMENT: Shortness of breath Acute on chronic hypoxic respiratory failure requiring BiPAP Acute COPD exacerbation Acute on chronic heart failure with preserved EF, 50 to 55% Persistent atrial fibrillation Coronary artery disease with previous PCI, details unknown Hypertension Hyperlipidemia Former nicotine dependence Morbid obesity Acute kidney injury likely secondary to hypotension along with diuresis, r esolved PLAN: Continue current dose of metoprolol and amiodarone as patient had difficulty controlling atrial fibrillation on admission Cardizem and lisinopril have been discontinued secondary to hypotension Continue IV diuretics per nephrology Continue to monitor kidney function Wean oxygen as tolerated Patient is currently stable from a cardiac perspective Further recommendations pending patient course Nurse practitioner note has been reviewed by physician. Signing provider agrees with the documented findings, assessment, and plan of care documented by [employer] as a scribe. Objective - Vital Signs Vital signs: Vital Signs Temp 98.5 F 09/01/23 07:52 Pulse 97 09/01/23 11:14 Resp 27 H 09/01/23 11:14 BP 116/80 09/01/23 11:14 Pulse Ox 93 L 09/01/23 11:14 FiO2 50 09/01/23 11:14 Intake & Output 08/31/23 09/01/23 09/01/23 18:59 06:59 18:59 Output Total 1250 850 400 Balance -1250 -850 -400 Weight 87.5 kg 104.5 kg Output: Urine 1250 850 400 Other: Voiding Method Indwelling Catheter Indwelling Catheter Indwelling Catheter # Bowel Movements 1 - Labs CBC & Chem 7: 09/01/23 10:21 08/31/23 08:45 Labs: Abnormal Lab Results - Last 24 Hours (Table) 08/31/23 09/01/23 Range/Units 08:45 10:21 MCHC 28.5 L (31.0-37.0) g/dL RDW 18.3 H (11.5-15.5) % Neutrophils # 8.3 H (1.3-7.7) k/uL Procalcitonin 0.19 H (0.02-0.09) ng/mL Microbiology - Last 24 Hours (Table) 08/28/23 10:25 Blood Culture - Preliminary Blood
[2023-09-01 11:56] LABS: ALT 33 U/L (4-34); AST 72 U/L (14-36); African American GFR (CKD) 62 (>60 ml/min/1.73 sqM); Albumin 3.4 g/dL (3.5-5.0); Alkaline Phosphatase 124 U/L (38-126); Anion Gap 9 mmol/L; Blood Urea Nitrogen 54 mg/dL (7-17); Calcium 9.4 mg/dL (8.4-10.2); Carbon Dioxide 37 mmol/L (22-30); Chloride 95 mmol/L (98-107); Glucose 114 mg/dL (74-99); Non-African American GFR(CKD) 53 (>60 ml/min/1.73 sqM); Potassium 3.9 mmol/L (3.5-5.1); Sodium 141 mmol/L (137-145); Total Protein 6.5 g/dL (6.3-8.2)
--- NOTE | 2023-09-01 11:56 | P.PN ---
Subjective Progress Note Date: 09/01/23 Principal diagnosis: COPD exacerbation. Acute on chronic hypoxemic respiratory failure secondary to an acute exacerbation of diastolic congestive heart failure with mild increasing interstitial edema This is a 57-year-old female familiar to our service, patient has been recently admitted and discharged, we saw her on consultation for her COPD and obesity hypoventilation syndrome, with chronic hypoxic respiratory failure, patient however has been recently admitted with atrial fibrillation RVR, and pulmonary edema related to her atrial fibrillation with RVR. She was just discharged 3 days ago by cardiology, patient was readmitted this time with a similar presentation mostly shortness of breath, atrial fibrillation with RVR, and requiring BiPAP treatment upon admission mostly because of her hypoxia and hypercapnia. Patient is morbidly obese, and I saw her again today in the morning for her shortness of breath. Patient was noted to be on BiPAP, 14/6/60%, and her O2 saturation was in the 90s. Patient was hemodynamically stable, her rate seems to be poorly controlled, and cardiology is to address her cardiac arrhythmia/atrial fibrillation with RVR looking back at this patient's history, she is 57 years old with known history of coronary artery disease and stenting, chronic diastolic congestive heart failure, hypertension, chronic atrial fibrillation on Eliquis, non-insulin dependent diabetes, history of chronic venous stasis changes, history of COPD, obstructive sleep apnea syndrome, obesity hypoventilation syndrome, and again as noted above patient had multiple admissions with similar presentation to the hospital Chest x-ray on this admission clearly showed evidence of moderate to severe congestive heart failure Patient was reevaluated today on 08/26/2023, remains on BiPAP, 16/6/60%, patient continues to have some shortness of breath and intermittent episodes of cough. Chest x-ray is showing improvement in her pulmonary edema, doubt underlying pneumonia. Her atrial fibrillation seems to be better controlled. ABG earlier this morning showed a pO2 of 67 pCO2 67 pH of 7.36 WBC count is 9.8 hemoglobin 11.1 basic metabolic profile is normal, renal profile is normal Progress note dated August 27, 2023. 57-year-old female, seen today in room 361. The patient remains on BiPAP, with settings of 16/6, and 65%. The patient is now on oral amiodarone. She also continues on Eliquis. She is not receiving any IV fluids. Lab data today includes a white count of 8.8, hemoglobin 10.9, hematocrit 38.3, and a platelet count of 263,000. Sodium 133, potassium 4.5, chloride 71, CO2 35, BUN 44, creatinine 1.0. Glucose is 117. Procalcitonin level is 0.54. Blood gases yesterday, on FiO2 of 60% show pO2 of 67, pCO2 of 67, and a pH which is nearly normal at 7.36. Progress note dated August 28, 2023. 57-year-old female seen today in room 361. Currently, the patient is on BiPAP at 16/6, and 65%, which is now reduced down to 40%. Her saturations were excellent at 65%. The patient is not receiving any IV fluids. Current lab data includes a white count 7.8, hemoglobin 10.6, hematocrit 34.9, and normal platelet count. Sodium 132, potassium 5.5, chloride 72, CO2 31, BUN 79, creatinine 2.46. Anion gap is normal. Glucose is 103. Procalcitonin level was 0.54. Chest x-ray from 25 August, shows bibasilar infiltrates. The patient continues on breathing treatments, and prednisone. Progress note dated August 29, 2023. 57-year-old female seen today in room 361. The patient continues on BiPAP, with settings of 16/6, and 50%. The patient's not receiving any IV fluids. She is doing about the same today as she did yesterday. Current labs include a white count 10.6, hemoglobin 10.4, hematocrit 35, and a platelet count of 260,000. S odium 134, potassium 4.8, chloride 91, CO2 32, BUN 89, and creatinine 2.81. Glucose is 116. Chest x-ray continues to show bibasilar and perihilar infiltrates. The chest x-ray is largely unchanged. Progress note dated August 30, 2023. 57-year-old female seen in room 361. The patient continues on BiPAP, with settings of 16/6, and 60%. She is not receiving any IV fluids. Her saturations are 94%. Patient is a bit more awake today, and I told the nurse to take her off the BiPAP, and placed her on nasal cannula at between 5 to 6 L, so that she may be can get something to eat. Yesterday, the patient had a blood gas, showing a pO2 of 63, pCO2 of 79, pH of 7.27. That was done on 50%. The patient is clearly a CO2 retainer, so the FiO2 should be titrated down. No additional labs today. Chest x-ray from yesterday shows bibasilar infiltrates. Progress note dated August 31, 2023. 57-year-old female, seen in room 361. The patient continues on BiPAP, with settings of 16/6, and 50%. She is not receiving any IV fluids. We did order a portable chest x-ray on her today. She did not spend much time, on nasal cannula, and on 6 L, her saturations dropped to 84% current labs include a white count 8.5, hemoglobin 11.8, hematocrit 40.3, and a normal platelet count of 313,000. Sodium 142, potassium 4.8, chloride 94, CO2 39, BUN 71, creatinine 1.0. Glucose is 97. Procalcitonin level is 0.34. Chest x-ray shows bilateral basilar infiltrates, consistent with either CHF, and or pneumonia. Blood cultures are currently negative. Progress dated September 01, 2023. 57-year-old female again seen in room 361. The patient continues on BiPAP, with settings of 16/6 and 50%. She is not receiving any IV fluids. According to the nurses, via my nurse practitioner, the patient desaturates very quickly, when she is placed on nasal cannula. She needs to go back on BiPAP, very quickly. She would like to come off of BiPAP this morning, to take a shower. White count 10.3, hemoglobin 11.8, hematocrit 41.4, platelet count 379,000. Blood cultures are thus far negative. Chest x-ray shows diffuse infiltrates, consistent with either pneumonia, or CHF. The patient's N-terminal proBNP was a bit elevated. Objective - Vital Signs Vital signs: Vital Signs Temp 98.5 F 09/01/23 07:52 Pulse 97 09/01/23 11:14 Resp 27 H 09/01/23 11:14 BP 116/80 09/01/23 11:14 Pulse Ox 93 L 09/01/23 11:14 FiO2 50 09/01/23 11:14 Intake & Output 08/31/23 09/01/23 09/01/23 18:59 06:59 18:59 Output Total 1250 850 400 Balance -1250 -850 -400 Weight 87.5 kg 104.5 kg Output: Urine 1250 850 400 Other: Voiding Method Indwelling Catheter Indwelling Catheter Indwelling Catheter # Bowel Movements 1 - Exam No acute distress, currently on BiPAP. Saturations are 94 %. HEENT examination is grossly unremarkable. Neck supple. Full range of motion. No adenopathy thyromegaly or neck vein distention. Cardiovascular examination reveals regular rhythm rate. S1-S2 normal. No S3 or S4. A systolic murmur is noted. Heart rate 80 bpm. Heart sounds are distant. Lungs reveal expiratory wheezes and rhonchi. Breath sounds are equal. No crackles. Saturations are 94 % on BiPAP. Abdomen, soft, with bowel sounds. No masses or tenderness. Extremities are intact. No cyanosis clubbing or edema. Skin is without rash or lesion. Neurologic examination is brief but nonfocal. - Labs CBC & Chem 7: 09/01/23 10:21 08/31/23 08:45 Labs: Abnormal Lab Results - Last 24 Hours (Table) 08/31/23 09/01/23 Range/Units 08:45 10:21 MCHC 28.5 L (31.0-37.0) g/dL RDW 18.3 H (11.5-15.5) % Neutrophils # 8.3 H (1.3-7.7) k/uL Procalcitonin 0.19 H (0.02-0.09) ng/mL Microbiology - Last 24 Hours (Table) 08/28/23 10:25 Blood Culture - Preliminary Blood Assessment and Plan Assessment: Acute on chronic atrial fibrillation, with RVR, and pulmonary edema. Acute on chronic hypoxemic respiratory failure, multifactorial, part related to diastolic CHF, atrial fibrillation, and COPD. Acute on chronic hypercapnic respiratory failure. Severe obstructive sleep apnea syndrome, currently on CPAP. Childhood asthma. Morbid obesity. Prior history of significant tobacco use. Multiple hospitalizations for COPD, and right lower extremity cellulitis. Previous sputum cultures positive for methicillin-resistant Staph aureus. History of chronic atrial fibrillation. History of hyperlipidemia. History of hypertension. History of coronary artery disease, previous PCI/stent placement. History of myocardial infarction. Chronic anxiety/depression. General medical debility. Plan: Plan dated August 27, 2023. The patient is seen today in room 371. The patient is on oral amiodarone, and Eliquis. She is not receiving any IV fluids. She remains on BiPAP, with settings of 16/6, and 65%. We will continue to follow make recommendations along the way. The patient's overall prognosis remains very guarded. Labs, x- rays, and all medications are reviewed. Plan dated August 28, 2023. The patient is seen today in room 361. The patient continues on BiPAP, with settings of 16/6, and 65%, be turned down to 40%. The patient's not receiving any IV fluids. Labs, x-rays, and medications are reviewed. The patient's overall prognosis remains very guarded. We will continue to follow the patient, make recommendations along the way. The patient is overall prognosis remains very guarded. Plan dated August 29, 2023. The patient was seen today in room 361. The patient continues on BiPAP, with settings of 16/6, and 50%. Saturations are in the mid 90s. Labs, x-rays, and medications are all reviewed. The patient's overall prognosis remains very guarded. We will continue to follow the patient, make recommendations along the way. The patient's overall clinical status remains about the same. Her chest x-ray done today, is unchanged. Plan dated August 30, 2023. The patient is seen today in room 361. She continues on BiPAP, with settings of 16/6, and 60%. That FiO2 should be titrated down, as the patient is a CO2 retainer. Her saturations are perfectly acceptable, between 85 and 92%. Labs, x-rays, medications are reviewed. The blood gas from yesterday was reviewed. I have asked the nurse to take the patient off of BiPAP, and placed her on nasal O2 at between 5 to 6 L. We will continue to follow, and make recommendations along the way. Prognosis is guarded. Plan dated August 31, 2023. The patient is seen today in room 361. The patient continues on BiPAP, at 16/6, and 50%. The patient's saturations on 6 L normally 84%. Chest x-ray is consistent with either pneumonia, and/or heart failure. Labs, x-rays, and medications are reviewed. We will continue to follow, and make recommendations along the way. Prognosis is certainly guarded. Plan dated September 01, 2023. The patient is again seen today in room 361. She continues on BiPAP. When she goes to nasal prongs, her saturations dropped precipitously. She then needs to go back on BiPAP. The patient's chest x-ray was consistent with either heart f ailure, and or pneumonia. The patient's BNP was elevated. We will continue to follow, and make recommendations along the way. Prognosis is certainly guarded. Time with Patient: Less than 30
--- NOTE | 2023-09-01 13:20 | P.PN ---
Subjective Progress Note Date: 09/01/23 Patient is seen for follow-up for acute kidney injury. Started on midodrine for low blood pressure and Haresh inhibitors are on hold. She wants to take a shower today. Patient is awake, comfortable Examination of the heart S1 and S2 Examination of the lungs bilateral breath sounds are heard decreased breath sounds at the bases Abdomen is soft morbidly obese Examination of lower extremity shows edema 1+ bilaterally [employer] 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 intact Objective - Vital Signs Vital signs: Vital Signs Temp 98.5 F 09/01/23 07:52 Pulse 104 H 09/01/23 09:25 Resp 27 H 09/01/23 07:52 BP 119/86 09/01/23 07:52 Pulse Ox 94 L 09/01/23 07:52 FiO2 50 09/01/23 09:09 Intake & Output 08/31/23 09/01/23 09/01/23 18:59 06:59 18:59 Output Total 1250 850 Balance -1250 -850 Weight 87.5 kg 104.5 kg Output: Urine 1250 850 Other: Voiding Method Indwelling Catheter Indwelling Catheter Indwelling Catheter # Bowel Movements 1 - Labs CBC & Chem 7: 09/01/23 10:21 09/01/23 10:21 Labs: Abnormal Lab Results - Last 24 Hours (Table) 08/31/23 09/01/23 Range/Units 08:45 10:21 MCHC 28.5 L (31.0-37.0) g/dL RDW 18.3 H (11.5-15.5) % Neutrophils # 8.3 H (1.3-7.7) k/uL Procalcitonin 0.19 H (0.02-0.09) ng/mL Microbiology - Last 24 Hours (Table) 08/28/23 10:25 Blood Culture - Preliminary Blood Assessment and Plan Plan: 1. Acute kidney injury secondary to hypotension in the setting of use of HARESH inhibitor's. Currently off of lisinopril. Blood pressure remains low. Patient has been started on midodrine. No urine retention noted. UA is quite benign. Diuresing well and renal function has improved. 2. Hyperkalemia associated with acute kidney injury 3. Acute hypoxic respiratory failure secondary to CHF exacerbation 4. Chronic diastolic heart failure 5. Metabolic alkalosis associated with underlying COPD and diuresis Plan: IV Lasix Continue with midodrine Continue Diamox x 24-48 hrs
--- NOTE | 2023-09-01 13:27 | P.PN ---
Subjective Progress Note Date: 09/01/23 Patient is a 57-year-old female with a past medical history of CAD with stenting, chronic diastolic heart failure, hypertension, hyperlipidemia, chronic atrial fibrillation on anticoagulation with Eliquis, type II [id number] diabetes mellitus, chronic venous stasis dermatitis with chronic bilateral lower extremity edema, severe obstructive sleep apnea CPAP dependent, and chronic hypoxic respiratory failure secondary to advanced COPD home oxygen dependent 3 L presented to the ER for worsening shortness of breath. Patient was only discharged on hospital day ago, patient stated she was all right till today when in the afternoon started noticing that her breathing was getting worse. Patient was complaining of her heart beating fast and her chest feeling tight. Patient complains of shortness of breath at rest and on exertion as well. Patient denies any fever or chills. There is no complaint of orthopnea or PND. Because of these worsening symptoms, patient called EMS and she was brought to the ER Initial lab work done in the ER showed WBC 11.1, hemoglobin 12.2, platelet count 271, sodium 137, potassium 4.3, BUN 27, creatinine 0.61, lactate 1.4, troponin 0.012, proBNP 5490 EKG done in the ER showed heart rate of 114, QRS 81, irregular rate and rhythm, no ST segment elevation or depression seen, no T-wave inversions seen. Chest x-ray done in the ER moderate to severe CHF Patient admitted to internal medicine service 08/25. Patient seen and examined. Patient was in respiratory distress overnight, continues to be in A-fib with rapid ventricular rate, was started on amiodarone drip. Currently on BiPAP with FiO2 60% 08/27/2023 Patient today is awake and alert at baseline She still complaining from significant dyspnea, currently on BiPAP She remains on IV Lasix 40 mg twice daily, as well as her Eliquis and prednisone burst taper Amiodarone drip switched to oral amiodarone 400 mg today. 08/28/2023 patient still dyspneic start requiring BiPAP. She Answers Questions Appropriately but Looks Tired She Denies Chest Pain or Abdominal Pain. Blood Pressure Is Borderline and This Morning Was 80/40, Blood Pressure Pills Were Held Patient with No Fever Still Tachypneic but Not Tachycardic Her Creatinine Jumped up 1.0 up to 2.4 Therefore We Switch Her IV Lasix to Oral and Hold Her Lisinopril and Other Blood Pressure Normal This Morning. We'll Keep Monitoring Blood Pressure and Creatinine for Now. We'll Send for Urine Analysis Bladder Scan Is 0 Currently she is on Eliquis 5 mg prednisone 30 mg 08/29/2023 Patient remains on BiPAP, today it is somewhat lower lethargic and harder to wake up. Mostly this is related to her metabolic encephalopathy as she has significantly worsening renal function yesterday up to 2.4 which might be contributing besides other medical problems affecting her mentation. Patient is afebrile, Blood pressure slightly better 90/57, she is still tachypneic with a rate around 25, Labs from today are pending She has renal ultrasound which I reviewed myself showing no hydronephrosis but incidental finding of cholelithiasis 5.5 x 6 2.7 x 1.8 cm. She remains on Eliquis 5 mg, Lasix Cardizem and Aldactone held Continue with metoprolol 100 mg and midodrine 5 mg was added Also she is on amiodarone. 08/30/2023 Patient on BiPAP this morning, she is more awake and alert, she follows commands and answers questions appropriately She still have some difficulty breathing and BiPAP is helping her. She denies abdominal pain or chest pain. Blood pressure improved currently 108/75, patient is tachypneic with a breathing rate 26-27 Chest x-ray showing bibasilar infiltrates Creatinine was 2.8 Patient remains on IV Lasix and prednisone 30 mg and Eliquis 5 mg Aldactone and lisinopril are placed on hold. Midodrine is currently 5 mg 3 times per day. 08/30. Patient seen and examined. Continues to be on BiPAP. States that she gets short of breath on slight exertion. 08/31. Patient seen and examined.Blood work done this morning showed WBC vital signs on this morning showed temperature 98.5, heart rate 102, respirations 27, blood pressure 119/86, on BiPAP with FiO2 50%. Patient currently on BiPAP, is able to get off the BiPAP for a short time to eat and get breaks. REVIEW OF SYSTEMS: CONSTITUTIONAL: No fever, no malaise,. CARDIOVASCULAR: No chest pain, no palpitations, no syncope. PULMONARY: As mentioned above GASTROINTESTINAL: No diarrhea, no nausea, no vomiting, no abdominal pain. NEUROLOGICAL: No headaches, no weakness, PHYSICAL EXAMINATION: GENERAL: The patient is alert and oriented x3, currently on BiPAP HEENT: Pupils are round and equally reacting to light. EOMI. No scleral icterus. No conjunctival pallor. Normocephalic, atraumatic. No pharyngeal erythema. No thyromegaly. CARDIOVASCULAR: S1 and S2 present. No murmurs, rubs, or gallops. Irregular rate and rhythm PULMONARY: Coarse breath sounds bilaterally, bilateral crackles audible ABDOMEN: Soft, nontender, nondistended, normoactive bowel sounds. No palpable organomegaly. MUSCULOSKELETAL: No joint swelling or deformity. EXTREMITIES: 1+ pitting edema NEUROLOGICAL: Gross neurological examination did not reveal any focal deficits. SKIN: No rashes. Assessment and plan Acute on chronic hypoxic respiratory failure Acute on chronic diastolic heart failure exacerbation COPD with chronic oxygen dependency, baseline 3-4 L at all times Severe obstructive sleep apnea. Atrial fibrillation with RVR in pt with Chronic atrial fibrillation on anticoagulation with Eliquis CAD with previous stent Hypertension Hyperlipidemia Bilateral lower extremity edema with venous stasis dermatitis. Type II [id number] diabetes mellitus with hemoglobin A1c of 7%. Morbid obesity with BMI of 50.8 kg/m Monitor vital signs Monitor CBC Monitor CMP Continue telemetry monitoring Continue oxygen supplementation Continue BiPAP Strict I's and O's, daily weights Continue IV Lasix 40 mg twice daily Continue amiodarone, Lopressor. Continue midodrine Continue Farxiga Continue breathing treatments with Duo[facility] Cardiology following Pulmonology following Nephrology following Labs and medication were reviewed.. Continue same treatment. Continue with symptomatic treatment. Resume home medication. Monitor labs and vitals. DVT and GI prophylaxis. Further recommendations as per clinical course of the patient Dictation was produced using [employer] dictation software. please excuse any grammatical, word or spelling errors. Objective - Vital Signs Vital signs: Vital Signs Temp 98.5 F 09/01/23 07:52 Pulse 106 H 09/01/23 09:10 Resp 27 H 09/01/23 07:52 BP 119/86 09/01/23 07:52 Pulse Ox 94 L 09/01/23 07:52 FiO2 50 09/01/23 09:09 Intake & Output 08/31/23 09/01/23 09/01/23 18:59 06:59 18:59 Output Total 1250 850 Balance -1250 -850 Weight 87.5 kg 104.5 kg Output: Urine 1250 850 Other: Voiding Method Indwelling Catheter Indwelling Catheter Indwelling Catheter # Bowel Movements 1 - Labs CBC & Chem 7: 09/01/23 10:21 09/01/23 10:21 Labs: Abnormal Lab Results - Last 24 Hours (Table) 08/31/23 08/31/23 08/31/23 Range/Units 08:45 08:45 08:45 MCHC 29.3 L (31.0-37.0) g/dL RDW 18.4 H (11.5-15.5) % Lymphocytes # 0.8 L (1.0-4.8) k/uL Chloride 94 L (98-107) mmol/L Carbon Dioxide 39 H (22-30) mmol/L BUN 71 H (7-17) mg/dL Procalcitonin 0.19 H (0.02-0.09) ng/mL Microbiology - Last 24 Hours (Table) 08/28/23 10:25 Blood Culture - Preliminary Blood
[2023-09-02 06:29] LABS: Anisocytosis Slight; Basophils # (A) 0.1 k/uL (0-0.2); Basophils % (A) 1 %; Eosinophils # (A) 0.1 k/uL (0-0.7); Eosinophils % (A) 1 %; HCT 39.1 % (34.0-46.0); HGB 11.1 gm/dL (11.4-16.0); Hypochromasia Marked; Lymphocytes # (A) 1.3 k/uL (1.0-4.8); Lymphocytes % (A) 12 %; MCH 25.9 pg (25.0-35.0); MCHC 28.5 g/dL (31.0-37.0); Mean Platelet Volume 8.8; Monocytes # (A) 0.5 k/uL (0-1.0); Monocytes % (A) 4 %; Neutrophils # (A) 8.6 k/uL (1.3-7.7); Neutrophils % (A) 81 %; Platelet Count 411 k/uL (150-450); RDW 18.4 % (11.5-15.5); WBC 10.7 k/uL (3.8-10.6)
[2023-09-02 06:36] LABS: ALT 28 U/L (4-34); AST 55 U/L (14-36); African American GFR (CKD) 70 (>60 ml/min/1.73 sqM); Albumin 3.3 g/dL (3.5-5.0); Alkaline Phosphatase 115 U/L (38-126); Anion Gap 5 mmol/L; Blood Urea Nitrogen 48 mg/dL (7-17); Carbon Dioxide 40 mmol/L (22-30); Chloride 96 mmol/L (98-107); Glucose 116 mg/dL (74-99); Non-African American GFR(CKD) 60 (>60 ml/min/1.73 sqM); Potassium 3.8 mmol/L (3.5-5.1); Sodium 141 mmol/L (137-145); Total Protein 6.6 g/dL (6.3-8.2)
--- NOTE | 2023-09-02 09:52 | P.PN ---
Subjective HISTORY OF PRESENT ILLNESS: Patient examined this morning at the bedside. Patient currently denies chest pain or pressure. She reports shortness of breath this morning. She remains on BiPAP at the time of examination. Patient is receiving IV diuretics. She also reports a frequent cough. Telemetry reveals atrial fibrillation with heart rate in the 80s. She is currently on IV amiodarone 08/28/2023 Patient examined this morning at the bedside. Patient denies chest pain or pressure. She reports mild shortness of breath. Her main complaint today is lower back discomfort. Patient's creatinine increased to 2.46 from 1.0 yesterday. Potassium 5.5. Patient's blood pressures have been on the low side with a systolic between 8090. 08/29/2023 Patient examined this morning at the bedside. Patient is lethargic this morning upon examination and requires multiple attempts at verbal arousal. Patient remains on BiPAP. Patient's creatinine today is worsened at 2.8. Pressures remain on the low side with a systolic around 90. 08/30/2023 Patient examined this morning at the bedside. Patient currently denies chest pain or pressure. She remains on BiPAP this morning. Patient has been started on IV Lasix. Creatinine 1.56 today. Patient has urinated over 3 L. Vital signs are stable. Blood pressure 130/81. 08/31/2023 Patient examined this morning at the bedside. Patient remains on BiPAP. She denies chest pain or pressure. She reports improvement in her shortness of breath. She remains on IV Lasix. Urine output over the last 24 hours is 4 L. Creatinine today is 1.0. Blood pressures have improved with a systolic greater than 100. 09/01/2023 Patient examined this morning at the bedside. Patient is much more awake today. Patient's daughter is at the bedside. Patient denies chest pain or pressure. She remains on BiPAP at the time of examination. She currently denies shortness of breath. She remains on IV diuretics. BNP yesterday 2460. Acute kidney injury has resolved. Creatinine yesterday 1.0. She remains in atrial fibrillation with a heart rate in the [id number]. Blood pressure has improved with a recent reading of 116/80. 09/02/2023 Patient examined this morning the bedside. Patient denies chest pain or pressure. She currently denies shortness of breath. She remains on BiPAP. Apparently yesterday the patient tolerated nasal cannula for a short period of time. However with any movement or turning in bed she desatted into the 80s. Blood pressure stable. Telemetry reveals atrial fibrillation. PHYSICAL EXAM: VITAL SIGNS: Reviewed. GENERAL: Well-developed in no acute distress. NECK: Supple. No JVD or thyromegaly LUNGS: Respirations even and unlabored. Lungs diminished bilaterally HEART: Regular rate and rhythm. S1 and S2 heard. EXTREMITIES: Normal range of motion. No clubbing or cyanosis. Peripheral pulses intact. 1-2+ bilateral lower extremity edema ASSESSMENT: Shortness of breath Acute on chronic hypoxic respiratory failure requiring BiPAP Acute COPD exacerbation Acute on chronic heart failure with preserved EF, 50 to 55% Persistent atrial fibrillation Coronary artery disease with previous PCI, details unknown Hypertension Hyperlipidemia Former nicotine dependence Morbid obesity Acute kidney injury likely secondary to hypotension along with diuresis, resolved PLAN: Continue current dose of metoprolol and amiodarone as patient had difficulty controlling atrial fibrillation on admission. Decrease amiodarone to 200 mg twice a day Cardizem and lisinopril have been discontinued secondary to hypotension this admission Continue IV diuretics Continue to monitor kidney function Wean oxygen as tolerated Further recommendations pending patient course Nurse practitioner note has been reviewed by physician. Signing provider agrees with the documented findings, assessment, and plan of care documented by [employer]SE[employer] as a scribe. Objective - Vital Signs Vital signs: Vital Signs Temp 98.1 F 09/02/23 07:44 Pulse 102 H 09/02/23 08:59 Resp 28 H 09/02/23 08:10 BP 130/85 09/02/23 07:44 Pulse Ox 91 L 09/02/23 08:10 FiO2 50 09/02/23 08:48 Intake & Output 09/01/23 09/02/23 09/02/23 18:59 06:59 18:59 Intake Total 1558 240 Output Total 625 700 Balance 933 -460 Weight 119.5 kg Intake: Oral 1558 240 Output: Urine 625 700 Other: Voiding Method Indwelling Catheter Indwelling Catheter Indwelling Catheter # Voids 0 # Bowel Movements 0 - Labs CBC & Chem 7: 09/02/23 06:03 09/02/23 06:03 Labs: Abnormal Lab Results - Last 24 Hours (Table) 09/01/23 09/01/23 09/02/23 Range/Units 10:21 10:21 06:03 WBC 10.7 H (3.8-10.6) k/uL Hgb 11.1 L (11.4-16.0) gm/dL MCHC 28.5 L 28.5 L (31.0-37.0) g/dL RDW 18.3 H 18.4 H (11.5-15.5) % Neutrophils # 8.3 H 8.6 H (1.3-7.7) k/uL Chloride 95 L (98-107) mmol/L Carbon Dioxide 37 H (22-30) mmol/L BUN 54 H (7-17) mg/dL Creatinine 1.15 H (0.52-1.04) mg/dL Glucose 114 H (74-99) mg/dL AST 72 H (14-36) U/L Albumin 3.4 L (3.5-5.0) g/dL 09/02/23 Range/Units 06:03 WBC (3.8-10.6) k/uL Hgb (11.4-16.0) gm/dL MCHC (31.0-37.0) g/dL RDW (11.5-15.5) % Neutrophils # (1.3-7.7) k/uL Chloride 96 L (98-107) mmol/L Carbon Dioxide 40 H (22-30) mmol/L BUN 48 H (7-17) mg/dL Creatinine (0.52-1.04) mg/dL Glucose 116 H (74-99) mg/dL AST 55 H (14-36) U/L Albumin 3.3 L (3.5-5.0) g/dL
[2023-09-02] MEDS: AMIODARONE 200 MG TAB PO SCH (10:05)
--- NOTE | 2023-09-02 11:12 | P.PN ---
Subjective Progress Note Date: 09/02/23 Patient is seen for follow-up for acute kidney injury. Started on midodrine for low blood pressure and Haresh inhibitors are on hold. Remains on Bipap. Patient is awake, comfortable on Bipap Examination of the heart S1 and S2 Examination of the lungs bilateral breath sounds are heard decreased breath sounds at the bases Abdomen is soft morbidly obese Examination of lower extremity shows edema 1+ bilaterally PETROLEUM SAMPLER 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 intact Objective - Vital Signs Vital signs: Vital Signs Temp 98.1 F 09/02/23 07:44 Pulse 102 H 09/02/23 08:59 Resp 28 H 09/02/23 08:10 BP 130/85 09/02/23 07:44 Pulse Ox 91 L 09/02/23 08:10 FiO2 50 09/02/23 08:48 Intake & Output 09/01/23 09/02/23 09/02/23 18:59 06:59 18:59 Intake Total 1558 240 Output Total 625 700 Balance 933 -460 Weight 119.5 kg Intake: Oral 1558 240 Output: Urine 625 700 Other: Voiding Method Indwelling Catheter Indwelling Catheter Indwelling Catheter # Voids 0 # Bowel Movements 0 - Labs CBC & Chem 7: 09/02/23 06:03 09/02/23 06:03 Labs: Abnormal Lab Results - Last 24 Hours (Table) 09/01/23 09/01/23 09/02/23 Range/Units 10:21 10:21 06:03 WBC 10.7 H (3.8-10.6) k/uL Hgb 11.1 L (11.4-16.0) gm/dL MCHC 28.5 L 28.5 L (31.0-37.0) g/dL RDW 18.3 H 18.4 H (11.5-15.5) % Neutrophils # 8.3 H 8.6 H (1.3-7.7) k/uL Chloride 95 L (98-107) mmol/L Carbon Dioxide 37 H (22-30) mmol/L BUN 54 H (7-17) mg/dL Creatinine 1.15 H (0.52-1.04) mg/dL Glucose 114 H (74-99) mg/dL AST 72 H (14-36) U/L Albumin 3.4 L (3.5-5.0) g/dL 09/02/23 Range/Units 06:03 WBC (3.8-10.6) k/uL Hgb (11.4-16.0) gm/dL MCHC (31.0-37.0) g/dL RDW (11.5-15.5) % Neutrophils # (1.3-7.7) k/uL Chloride 96 L (98-107) mmol/L Carbon Dioxide 40 H (22-30) mmol/L BUN 48 H (7-17) mg/dL Creatinine (0.52-1.04) mg/dL Glucose 116 H (74-99) mg/dL AST 55 H (14-36) U/L Albumin 3.3 L (3.5-5.0) g/dL Assessment and Plan Plan: 1. Acute kidney injury secondary to hypotension in the setting of use of HARESH inhibitor's. Currently off of lisinopril. Blood pressure remains low. Patient has been started on midodrine. No urine retention noted. UA is quite benign. Diuresing well and renal function has improved. 2. Hyperkalemia associated with acute kidney injury 3. Acute hypoxic respiratory failure secondary to CHF exacerbation 4. Chronic diastolic heart failure 5. Metabolic alkalosis associated with underlying COPD and diuresis Plan: IV Lasix, good urine output Renal function stable Continue with midodrine Continue Diamox
--- NOTE | 2023-09-02 11:13 | P.PN ---
Subjective Progress Note Date: 09/02/23 Principal diagnosis: COPD exacerbation. Acute on chronic hypoxemic respiratory failure secondary to an acute exacerbation of diastolic congestive heart failure with mild increasing interstitial edema This is a 57-year-old female familiar to our service, patient has been recently admitted and discharged, we saw her on consultation for her COPD and obesity hypoventilation syndrome, with chronic hypoxic respiratory failure, patient however has been recently admitted with atrial fibrillation RVR, and pulmonary edema related to her atrial fibrillation with RVR. She was just discharged 3 days ago by cardiology, patient was readmitted this time with a similar presentation mostly shortness of breath, atrial fibrillation with RVR, and requiring BiPAP treatment upon admission mostly because of her hypoxia and hypercapnia. Patient is morbidly obese, and I saw her again today in the morning for her shortness of breath. Patient was noted to be on BiPAP, 14/6/60%, and her O2 saturation was in the 90s. Patient was hemodynamically stable, her rate seems to be poorly controlled, and cardiology is to address her cardiac arrhythmia/atrial fibrillation with RVR looking back at this patient's history, she is 57 years old with known history of coronary artery disease and stenting, chronic diastolic congestive heart failure, hypertension, chronic atrial fibrillation on Eliquis, non-insulin dependent diabetes, history of chronic venous stasis changes, history of COPD, obstructive sleep apnea syndrome, obesity hypoventilation syndrome, and again as noted above patient had multiple admissions with similar presentation to the hospital Chest x-ray on this admission clearly showed evidence of moderate to severe congestive heart failure Patient was reevaluated today on 08/26/2023, remains on BiPAP, 16/6/60%, patient continues to have some shortness of breath and intermittent episodes of cough. Chest x-ray is showing improvement in her pulmonary edema, doubt underlying pneumonia. Her atrial fibrillation seems to be better controlled. ABG earlier this morning showed a pO2 of 67 pCO2 67 pH of 7.36 WBC count is 9.8 hemoglobin 11.1 basic metabolic profile is normal, renal profile is normal Progress note dated August 27, 2023. 57-year-old female, seen today in room 361. The patient remains on BiPAP, with settings of 16/6, and 65%. The patient is now on oral amiodarone. She also continues on Eliquis. She is not receiving any IV fluids. Lab data today includes a white count of 8.8, hemoglobin 10.9, hematocrit 38.3, and a platelet count of 263,000. Sodium 133, potassium 4.5, chloride 71, CO2 35, BUN 44, creatinine 1.0. Glucose is 117. Procalcitonin level is 0.54. Blood gases yesterday, on FiO2 of 60% show pO2 of 67, pCO2 of 67, and a pH which is nearly normal at 7.36. Progress note dated August 28, 2023. 57-year-old female seen today in room 361. Currently, the patient is on BiPAP at 16/6, and 65%, which is now reduced down to 40%. Her saturations were excellent at 65%. The patient is not receiving any IV fluids. Current lab data includes a white count 7.8, hemoglobin 10.6, hematocrit 34.9, and normal platelet count. Sodium 132, potassium 5.5, chloride 72, CO2 31, BUN 79, creatinine 2.46. Anion gap is normal. Glucose is 103. Procalcitonin level was 0.54. Chest x-ray from 25 August, shows bibasilar infiltrates. The patient continues on breathing treatments, and prednisone. Progress note dated August 29, 2023. 57-year-old female seen today in room 361. The patient continues on BiPAP, with settings of 16/6, and 50%. The patient's not receiving any IV fluids. She is doing about the same today as she did yesterday. Current labs include a white count 10.6, hemoglobin 10.4, hematocrit 35, and a platelet count of 260,000. S odium 134, potassium 4.8, chloride 91, CO2 32, BUN 89, and creatinine 2.81. Glucose is 116. Chest x-ray continues to show bibasilar and perihilar infiltrates. The chest x-ray is largely unchanged. Progress note dated August 30, 2023. 57-year-old female seen in room 361. The patient continues on BiPAP, with settings of 16/6, and 60%. She is not receiving any IV fluids. Her saturations are 94%. Patient is a bit more awake today, and I told the nurse to take her off the BiPAP, and placed her on nasal cannula at between 5 to 6 L, so that she may be can get something to eat. Yesterday, the patient had a blood gas, showing a pO2 of 63, pCO2 of 79, pH of 7.27. That was done on 50%. The patient is clearly a CO2 retainer, so the FiO2 should be titrated down. No additional labs today. Chest x-ray from yesterday shows bibasilar infiltrates. Progress note dated August 31, 2023. 57-year-old female, seen in room 361. The patient continues on BiPAP, with settings of 16/6, and 50%. She is not receiving any IV fluids. We did order a portable chest x-ray on her today. She did not spend much time, on nasal cannula, and on 6 L, her saturations dropped to 84% current labs include a white count 8.5, hemoglobin 11.8, hematocrit 40.3, and a normal platelet count of 313,000. Sodium 142, potassium 4.8, chloride 94, CO2 39, BUN 71, creatinine 1.0. Glucose is 97. Procalcitonin level is 0.34. Chest x-ray shows bilateral basilar infiltrates, consistent with either CHF, and or pneumonia. Blood cultures are currently negative. Progress dated September 01, 2023. 57-year-old female again seen in room 361. The patient continues on BiPAP, with settings of 16/6 and 50%. She is not receiving any IV fluids. According to the nurses, via my nurse practitioner, the patient desaturates very quickly, when she is placed on nasal cannula. She needs to go back on BiPAP, very quickly. She would like to come off of BiPAP this morning, to take a shower. White count 10.3, hemoglobin 11.8, hematocrit 41.4, platelet count 379,000. Blood cultures are thus far negative. Chest x-ray shows diffuse infiltrates, consistent with either pneumonia, or CHF. The patient's N-terminal proBNP was a bit elevated. Progress note dated September 02, 2023. 57-year-old female seen today in room 361. She continues on BiPAP, with settings of 16/6, and 50%. She is not receiving any IV fluids. We will order a chest x-ray for tomorrow, September 02. I did ask the nurse, to call respiratory, to try the patient on Airvo, as opposed to her continuously being on BiPAP. When the patient is switched from BiPAP, to high flow nasal O2, she desaturates significantly, and quickly. Labs today include a white count of 10.7, hemoglobin 11.1, hematocrit 39.1, and platelet count 411,000. Sodium 141, potassium 3.8, chloride 96, CO2 40, BUN 48, creatinine 1.04. Glucose is 116. Objective - Vital Signs Vital signs: Vital Signs Temp 98.1 F 09/02/23 07:44 Pulse 102 H 09/02/23 08:59 Resp 28 H 09/02/23 08:10 BP 130/85 09/02/23 07:44 Pulse Ox 91 L 09/02/23 08:10 FiO2 50 09/02/23 08:48 Intake & Output 09/01/23 09/02/23 09/02/23 18:59 06:59 18:59 Intake Total 1558 240 240 Output Total 625 700 Balance 933 -460 240 Weight 119.5 kg Intake: Oral 1558 240 240 Output: Urine 625 700 Other: Voiding Method Indwelling Catheter Indwelling Catheter Indwelling Catheter # Voids 0 # Bowel Movements 0 - Exam No acute distress, currently on BiPAP. Saturations are 92 %. HEENT examination is grossly unremarkable. Neck supple. Full range of motion. No adenopathy thyromegaly or neck vein distention. Cardiovascular examination reveals regular rhythm rate. S1-S2 normal. No S3 or S4. A systolic murmur is noted. Heart rate 97 bpm. Heart sounds are distant. Lungs reveal expiratory wheezes and rhonchi. Breath sounds are equal. No crackles. Saturations are 92 % on BiPAP. Abdomen, soft, with bowel sounds. No masses or tenderness. Extremities are intact. No cyanosis clubbing or edema. Skin is without rash or lesion. Neurologic examination is brief but nonfocal. - Labs CBC & Chem 7: 09/02/23 06:03 09/02/23 06:03 Labs: Abnormal Lab Results - Last 24 Hours (Table) 09/01/23 09/02/23 09/02/23 Range/Units 10:21 06:03 06:03 WBC 10.7 H (3.8-10.6) k/uL Hgb 11.1 L (11.4-16.0) gm/dL MCHC 28.5 L (31.0-37.0) g/dL RDW 18.4 H (11.5-15.5) % Neutrophils # 8.6 H (1.3-7.7) k/uL Chloride 95 L 96 L (98-107) mmol/L Carbon Dioxide 37 H 40 H (22-30) mmol/L BUN 54 H 48 H (7-17) mg/dL Creatinine 1.15 H (0.52-1.04) mg/dL Glucose 114 H 116 H (74-99) mg/dL AST 72 H 55 H (14-36) U/L Albumin 3.4 L 3.3 L (3.5-5.0) g/dL Assessment and Plan Assessment: Acute on chronic atrial fibrillation, with RVR, and pulmonary edema. Acute on chronic hypoxemic respiratory failure, multifactorial, part related to diastolic CHF, atrial fibrillation, and COPD. Acute on chronic hypercapnic respiratory failure. Severe obstructive sleep apnea syndrome, currently on CPAP. Childhood asthma. Morbid obesity. Prior history of significant tobacco use. Multiple hospitalizations for COPD, and right lower extremity cellulitis. Previous sputum cultures positive for methicillin-resistant Staph aureus. History of chronic atrial fibrillation. History of hyperlipidemia. History of hypertension. History of coronary artery disease, previous PCI/stent placement. History of myocardial infarction. Chronic anxiety/depression. General medical debility. Plan: Plan dated August 27, 2023. The patient is seen today in room 371. The patient is on oral amiodarone, and Eliquis. She is not receiving any IV fluids. She remains on BiPAP, with settings of 16/6, and 65%. We will continue to follow make recommendations along the way. The patient's overall prognosis remains very guarded. Labs, x- rays, and all medications are reviewed. Plan dated August 28, 2023. The patient is seen today in room 361. The patient continues on BiPAP, with settings of 16/6, and 65%, be turned down to 40%. The patient's not receiving any IV fluids. Labs, x-rays, and medications are reviewed. The patient's o verall prognosis remains very guarded. We will continue to follow the patient, make recommendations along the way. The patient is overall prognosis remains very guarded. Plan dated August 29, 2023. The patient was seen today in room 361. The patient continues on BiPAP, with settings of 16/6, and 50%. Saturations are in the mid 90s. Labs, x-rays, and medications are all reviewed. The patient's overall prognosis remains very guarded. We will continue to follow the patient, make recommendations along the way. The patient's overall clinical status remains about the same. Her chest x-ray done today, is unchanged. Plan dated August 30, 2023. The patient is seen today in room 361. She continues on BiPAP, with settings of 16/6, and 60%. That FiO2 should be titrated down, as the patient is a CO2 retainer. Her saturations are perfectly acceptable, between 85 and 92%. Labs, x-rays, medications are reviewed. The blood gas from yesterday was reviewed. I have asked the nurse to take the patient off of BiPAP, and placed her on nasal O2 at between 5 to 6 L. We will continue to follow, and make recommendations along the way. Prognosis is guarded. Plan dated August 31, 2023. The patient is seen today in room 361. The patient continues on BiPAP, at 16/6, and 50%. The patient's saturations on 6 L normally 84%. Chest x-ray is consistent with either pneumonia, and/or heart failure. Labs, x-rays, and medications are reviewed. We will continue to follow, and make recommendations along the way. Prognosis is certainly guarded. Plan dated September 01, 2023. The patient is again seen today in room 361. She continues on BiPAP. When she goes to nasal prongs, her saturations dropped precipitously. She then needs to go back on BiPAP. The patient's chest x-ray was consistent with either heart failure, and or pneumonia. The patient's BNP was elevated. We will continue to follow, and make recommendations along the way. Prognosis is certainly guarded. Plan dated September 02, 2023. The patient's labs, x-rays, and medications are reviewed. The patient continues on BiPAP, with settings of 16/6, and 50%. The patient is not receiving any IV fluids. Anytime the patient goes off of BiPAP, her saturations dropped significantly, and precipitously. The patient will be trialed on some Airvo. Chest x-ray is ordered for tomorrow. We will continue to follow, make recommendations along the way. The patient's overall prognosis remains very guarded. Time with Patient: Less than 30
--- NOTE | 2023-09-02 13:42 | P.PN ---
Subjective Progress Note Date: 09/02/23 Patient is a 57-year-old female with a past medical history of CAD with stenting, chronic diastolic heart failure, hypertension, hyperlipidemia, chronic atrial fibrillation on anticoagulation with Eliquis, type II [id number]-[id number] diabetes mellitus, chronic venous stasis dermatitis with chronic bilateral lower extremity edema, severe obstructive sleep apnea CPAP dependent, and chronic hypoxic respiratory failure secondary to advanced COPD home oxygen dependent 3 L presented to the ER for worsening shortness of breath. Patient was only discharged on hospital day ago, patient stated she was all right till today when in the afternoon started noticing that her breathing was getting worse. Patient was complaining of her heart beating fast and her chest feeling tight. Patient complains of shortness of breath at rest and on exertion as well. Patient denies any fever or chills. There is no complaint of orthopnea or PND. Because of these worsening symptoms, patient called EMS and she was brought to the ER Initial lab work done in the ER showed WBC 11.1, hemoglobin 12.2, platelet count 271, sodium 137, potassium 4.3, BUN 27, creatinine 0.61, lactate 1.4, troponin 0.012, proBNP 5490 EKG done in the ER showed heart rate of 114, QRS 81, irregular rate and rhythm, no ST segment elevation or depression seen, no T-wave inversions seen. Chest x-ray done in the ER moderate to severe CHF Patient admitted to internal medicine service 08/25. Patient seen and examined. Patient was in respiratory distress overnight, continues to be in A-fib with rapid ventricular rate, was started on amiodarone drip. Currently on BiPAP with FiO2 60% 08/27/2023 Patient today is awake and alert at baseline She still complaining from significant dyspnea, currently on BiPAP She remains on IV Lasix 40 mg twice daily, as well as her Eliquis and prednisone burst taper Amiodarone drip switched to oral amiodarone 400 mg today. 08/28/2023 patient still dyspneic start requiring BiPAP. She Answers Questions Appropriately but Looks Tired She Denies Chest Pain or Abdominal Pain. Blood Pressure Is Borderline and This Morning Was 80/40, Blood Pressure Pills Were Held Patient with No Fever Still Tachypneic but Not Tachycardic Her Creatinine Jumped up 1.0 up to 2.4 Therefore We Switch Her IV Lasix to Oral and Hold Her Lisinopril and Other Blood Pressure Normal This Morning. We'll Keep Monitoring Blood Pressure and Creatinine for Now. We'll Send for Urine Analysis Bladder Scan Is 0 Currently she is on Eliquis 5 mg prednisone 30 mg 08/29/2023 Patient remains on BiPAP, today it is somewhat lower lethargic and harder to wake up. Mostly this is related to her metabolic encephalopathy as she has significantly worsening renal function yesterday up to 2.4 which might be contributing besides other medical problems affecting her mentation. Patient is afebrile, Blood pressure slightly better 90/57, she is still tachypneic with a rate around 25, Labs from today are pending She has renal ultrasound which I reviewed myself showing no hydronephrosis but incidental finding of cholelithiasis 5.5 x 6 2.7 x 1.8 cm. She remains on Eliquis 5 mg, Lasix Cardizem and Aldactone held Continue with metoprolol 100 mg and midodrine 5 mg was added Also she is on amiodarone. 08/30/2023 Patient on BiPAP this morning, she is more awake and alert, she follows commands and answers questions appropriately She still have some difficulty breathing and BiPAP is helping her. She denies abdominal pain or chest pain. Blood pressure improved currently 108/75, patient is tachypneic with a breathing rate 26-27 Chest x-ray showing bibasilar infiltrates Creatinine was 2.8 Patient remains on IV Lasix and prednisone 30 mg and Eliquis 5 mg Aldactone and lisinopril are placed on hold. Midodrine is currently 5 mg 3 times per day. 08/30. Patient seen and examined. Continues to be on BiPAP. States that she gets short of breath on slight exertion. 08/31. Patient seen and examined.Blood work done this morning showed WBC vital signs on this morning showed temperature 98.5, heart rate 102, respirations 27, blood pressure 119/86, on BiPAP with FiO2 50%. Patient currently on BiPAP, is able to get off the BiPAP for a short time to eat and get breaks. 09/01. Patient seen and examined. Blood work done showed WBC 10.7, hemoglobin 11.1, platelet count 411, sodium 141, potassium 3.8, BUN 48, creatinine 1.04, glucose 116. Patient remains clinically unchanged from yesterday. Continues to complain of shortness of breath on minimal exertion. REVIEW OF SYSTEMS: CONSTITUTIONAL: No fever, no malaise,. CARDIOVASCULAR: No chest pain, no palpitations, no syncope. PULMONARY: As mentioned above GASTROINTESTINAL: No diarrhea, no nausea, no vomiting, no abdominal pain. NEUROLOGICAL: No headaches, no weakness, PHYSICAL EXAMINATION: GENERAL: The patient is alert and oriented x3, currently on BiPAP HEENT: Pupils are round and equally reacting to light. EOMI. No scleral icterus. No conjunctival pallor. Normocephalic, atraumatic. No pharyngeal erythema. No thyromegaly. CARDIOVASCULAR: S1 and S2 present. No murmurs, rubs, or gallops. Irregular rate and rhythm PULMONARY: Coarse breath sounds bilaterally, bilateral crackles audible ABDOMEN: Soft, nontender, nondistended, normoactive bowel sounds. No palpable organomegaly. MUSCULOSKELETAL: No joint swelling or deformity. EXTREMITIES: 1+ pitting edema NEUROLOGICAL: Gross neurological examination did not reveal any focal deficits. SKIN: No rashes. Assessment and plan Acute on chronic hypoxic respiratory failure Acute on chronic diastolic heart failure exacerbation COPD with chronic oxygen dependency, baseline 3-4 L at all times Severe obstructive sleep apnea. Atrial fibrillation with RVR in pt with Chronic atrial fibrillation on anticoagulation with Eliquis CAD with previous stent Hypertension Hyperlipidemia Bilateral lower extremity edema with venous stasis dermatitis. Type II [id number]-evvjpuiys diabetes mellitus with hemoglobin A1c of 7%. Morbid obesity with BMI of 50.8 kg/m Monitor vital signs Monitor CBC Monitor CMP Continue telemetry monitoring Continue oxygen supplementation Continue BiPAP Strict I's and O's, daily weights Continue IV Lasix 40 mg twice daily Continue amiodarone, Lopressor. Continue midodrine Continue Farxiga Continue breathing treatments with [facility] Cardiology following Pulmonology following, recommend trialing patient on Airvo Nephrology following Labs and medication were reviewed.. Continue same treatment. Continue with symptomatic treatment. Resume home medication. Monitor labs and vitals. DVT and GI prophylaxis. Further recommendations as per clinical course of the patient Dictation was produced using [employer] dictation software. please excuse any grammatical, word or spelling errors. Objective - Vital Signs Vital signs: Vital Signs Temp 98.1 F 09/02/23 07:44 Pulse 102 H 04/07/24 08:59 Resp 28 H 09/02/23 08:10 BP 130/85 09/02/23 07:44 Pulse Ox 91 L 09/02/23 08:10 FiO2 50 09/02/23 08:48 Intake & Output 09/01/23 09/02/23 09/02/23 18:59 06:59 18:59 Intake Total 1558 240 Output Total 625 700 Balance 933 -460 Weight 119.5 kg Intake: Oral 1558 240 Output: Urine 625 700 Other: Voiding Method Indwelling Catheter Indwelling Catheter Indwelling Catheter # Voids 0 # Bowel Movements 0 - Labs CBC & Chem 7: 09/02/23 06:03 09/02/23 06:03 Labs: Abnormal Lab Results - Last 24 Hours (Table) 09/01/23 09/01/23 09/02/23 Range/Units 10:21 10:21 06:03 WBC 10.7 H (3.8-10.6) k/uL Hgb 11.1 L (11.4-16.0) gm/dL MCHC 28.5 L 28.5 L (31.0-37.0) g/dL RDW 18.3 H 18.4 H (11.5-15.5) % Neutrophils # 8.3 H 8.6 H (1.3-7.7) k/uL Chloride 95 L (98-107) mmol/L Carbon Dioxide 37 H (22-30) mmol/L BUN 54 H (7-17) mg/dL Creatinine 1.15 H (0.52-1.04) mg/dL Glucose 114 H (74-99) mg/dL AST 72 H (14-36) U/L Albumin 3.4 L (3.5-5.0) g/dL 09/02/23 Range/Units 06:03 WBC (3.8-10.6) k/uL Hgb (11.4-16.0) gm/dL MCHC (31.0-37.0) g/dL RDW (11.5-15.5) % Neutrophils # (1.3-7.7) k/uL Chloride 96 L (98-107) mmol/L Carbon Dioxide 40 H (22-30) mmol/L BUN 48 H (7-17) mg/dL Creatinine (0.52-1.04) mg/dL Glucose 116 H (74-99) mg/dL AST 55 H (14-36) U/L Albumin 3.3 L (3.5-5.0) g/dL
--- NOTE | 2023-09-03 08:47 | XR ---
EXAMINATION TYPE: XR chest 1V portable DATE OF EXAM: 09/03/2023 HISTORY: Shortness of breath. COMPARISON: 08/31/2023 TECHNIQUE: Single view of the chest is submitted. FINDINGS: Demonstrated are scattered senescent parenchymal change. Coarse perihilar and basilar infiltrates are unchanged compatible with underlying pneumonia. Clinical CHF is an additional consideration. Correlate clinically. The heart is stable. Hilar and mediastinal structures are within normal limits. Degenerative changes are seen of the dorsal spine. IMPRESSION: 1. Coarse perihilar and basilar infiltrates are unchanged compatible with underlying pneumonia. Clin ical CHF is an additional consideration. Correlate clinically.
[2023-09-03 09:26] LABS: Anisocytosis Slight; Basophils # (A) 0.1 k/uL (0-0.2); Basophils % (A) 1 %; Eosinophils # (A) 0.2 k/uL (0-0.7); Eosinophils % (A) 1 %; HGB 11.7 gm/dL (11.4-16.0); Hypochromasia Marked; Lymphocytes % (A) 8 %; MCH 26.9 pg (25.0-35.0); MCHC 29.3 g/dL (31.0-37.0); MCV 91.9 fL (80.0-100.0); Mean Platelet Volume 8.6; Monocytes # (A) 0.7 k/uL (0-1.0); Monocytes % (A) 5 %; Neutrophils # (A) 11.2 k/uL (1.3-7.7); Neutrophils % (A) 85 %; Platelet Count 366 k/uL (150-450); RBC 4.35 m/uL (3.80-5.40); RDW 18.1 % (11.5-15.5); WBC 13.2 k/uL (3.8-10.6)
[2023-09-03 09:34] LABS: ALT 26 U/L (4-34); AST 51 U/L (14-36); African American GFR (CKD) 90 (>60 ml/min/1.73 sqM); Albumin 3.3 g/dL (3.5-5.0); Alkaline Phosphatase 103 U/L (38-126); Anion Gap 6 mmol/L; Blood Urea Nitrogen 35 mg/dL (7-17); Calcium 8.8 mg/dL (8.4-10.2); Carbon Dioxide 38 mmol/L (22-30); Chloride 96 mmol/L (98-107); Glucose 151 mg/dL (74-99); Non-African American GFR(CKD) 78 (>60 ml/min/1.73 sqM); Sodium 140 mmol/L (137-145); Total Bilirubin 1.2 mg/dL (0.2-1.3)
[2023-09-03 09:37] LABS: Potassium 3.6 mmol/L (3.5-5.1)
--- NOTE | 2023-09-03 11:50 | P.PN ---
Subjective Progress Note Date: 09/03/23 Patient is a 57-year-old female with a past medical history of CAD with stenting, chronic diastolic heart failure, hypertension, hyperlipidemia, chronic atrial fibrillation on anticoagulation with Eliquis, type II zxa-hbjbznb-sbfnucnko diabetes mellitus, chronic venous stasis dermatitis with chronic bilateral lower extremity edema, severe obstructive sleep apnea CPAP dependent, and chronic hypoxic respiratory failure secondary to advanced COPD home oxygen dependent 3 L presented to the ER for worsening shortness of breath. Patient was only discharged on hospital day ago, patient stated she was all right till today when in the afternoon started noticing that her breathing was getting worse. Patient was complaining of her heart beating fast and her chest feeling tight. Patient complains of shortness of breath at rest and on exertion as well. Patient denies any fever or chills. There is no complaint of orthopnea or PND. Because of these worsening symptoms, patient called EMS and she was brought to the ER Initial lab work done in the ER showed WBC 11.1, hemoglobin 12.2, platelet count 271, sodium 137, potassium 4.3, BUN 27, creatinine 0.61, lactate 1.4, troponin 0.012, proBNP 5490 EKG done in the ER showed heart rate of 114, QRS 81, irregular rate and rhythm, no ST segment elevation or depression seen, no T-wave inversions seen. Chest x-ray done in the ER moderate to severe CHF Patient admitted to internal medicine service 08/25. Patient seen and examined. Patient was in respiratory distress overnight, continues to be in A-fib with rapid ventricular rate, was started on amiodarone drip. Currently on BiPAP with FiO2 60% 08/27/2023 Patient today is awake and alert at baseline She still complaining from significant dyspnea, currently on BiPAP She remains on IV Lasix 40 mg twice daily, as well as her Eliquis and prednisone burst taper Amiodarone drip switched to oral amiodarone 400 mg today. 08/28/2023 patient still dyspneic start requiring BiPAP. She Answers Questions Appropriately but Looks Tired She Denies Chest Pain or Abdominal Pain. Blood Pressure Is Borderline and This Morning Was 80/40, Blood Pressure Pills Were Held Patient with No Fever Still Tachypneic but Not Tachycardic Her Creatinine Jumped up 1.0 up to 2.4 Therefore We Switch Her IV Lasix to Oral and Hold Her Lisinopril and Other Blood Pressure Normal This Morning. We'll Keep Monitoring Blood Pressure and Creatinine for Now. We'll Send for Urine Analysis Bladder Scan Is 0 Currently she is on Eliquis 5 mg prednisone 30 mg 08/29/2023 Patient remains on BiPAP, today it is somewhat lower lethargic and harder to wake up. Mostly this is related to her metabolic encephalopathy as she has significantly worsening renal function yesterday up to 2.4 which might be contributing besides other medical problems affecting her mentation. Patient is afebrile, Blood pressure slightly better 90/57, she is still tachypneic with a rate around 25, Labs from today are pending She has renal ultrasound which I reviewed myself showing no hydronephrosis but incidental finding of cholelithiasis 5.5 x 6 2.7 x 1.8 cm. She remains on Eliquis 5 mg, Lasix Cardizem and Aldactone held Continue with metoprolol 100 mg and midodrine 5 mg was added Also she is on amiodarone. 08/30/2023 Patient on BiPAP this morning, she is more awake and alert, she follows commands and answers questions appropriately She still have some difficulty breathing and BiPAP is helping her. She denies abdominal pain or chest pain. Blood pressure improved currently 108/75, patient is tachypneic with a breathing rate 26-27 Chest x-ray showing bibasilar infiltrates Creatinine was 2.8 Patient remains on IV Lasix and prednisone 30 mg and Eliquis 5 mg Aldactone and lisinopril are placed on hold. Midodrine is currently 5 mg 3 times per day. 08/30. Patient seen and examined. Continues to be on BiPAP. States that she gets short of breath on slight exertion. 08/31. Patient seen and examined.Blood work done this morning showed WBC vital signs on this morning showed temperature 98.5, heart rate 102, respirations 27, blood pressure 119/86, on BiPAP with FiO2 50%. Patient currently on BiPAP, is able to get off the BiPAP for a short time to eat and get breaks. 09/01. Patient seen and examined. Blood work done showed WBC 10.7, hemoglobin 11.1, platelet count 411, sodium 141, potassium 3.8, BUN 48, creatinine 1.04, glucose 116. Patient remains clinically unchanged from yesterday. Continues to complain of shortness of breath on minimal exertion. 09/02. Patient seen and examined. Blood work done this morning showed WBC 13.2, hemoglobin 11.7, platelet count 366, sodium 140, potassium 3.6, BUN 35, creatinine 0.84. Currently sitting upright in the chair, continues to be on Airvo at 50 L of oxygen, states she feels better than yesterday REVIEW OF SYSTEMS: CONSTITUTIONAL: No fever, no malaise,. CARDIOVASCULAR: No chest pain, no palpitations, no syncope. PULMONARY: As mentioned above GASTROINTESTINAL: No diarrhea, no nausea, no vomiting, no abdominal pain. NEUROLOGICAL: No headaches, no weakness, PHYSICAL EXAMINATION: GENERAL: The patient is alert and oriented x3, currently on BiPAP HEENT: Pupils are round and equally reacting to light. EOMI. No scleral icterus. No conjunctival pallor. Normocephalic, atraumatic. No pharyngeal erythema. No thyromegaly. CARDIOVASCULAR: S1 and S2 present. No murmurs, rubs, or gallops. Irregular rate and rhythm PULMONARY: Coarse breath sounds bilaterally, bilateral crackles audible ABDOMEN: Soft, nontender, nondistended, normoactive bowel sounds. No palpable organomegaly. MUSCULOSKELETAL: No joint swelling or deformity. EXTREMITIES: 1+ pitting edema NEUROLOGICAL: Gross neurological examination did not reveal any focal deficits. SKIN: No rashes. Assessment and plan Acute on chronic hypoxic respiratory failure Acute on chronic diastolic heart failure exacerbation COPD with chronic oxygen dependency, baseline 3-4 L at all times Severe obstructive sleep apnea. Atrial fibrillation with RVR in pt with Chronic atrial fibrillation on anticoagulation with Eliquis CAD with previous stent Hypertension Hyperlipidemia Bilateral lower extremity edema with venous stasis dermatitis. Type II roo-jttgaze-uuugwsinm diabetes mellitus with hemoglobin A1c of 7%. Morbid obesity with BMI of 50.8 kg/m Monitor vital signs Monitor CBC Monitor CMP Continue telemetry monitoring Continue oxygen supplementation Continue BiPAP Strict I's and O's, daily weights Continue IV Lasix 40 mg twice daily Continue amiodarone, Lopressor. Continue midodrine Continue Farxiga Continue breathing treatments with DuoNeb Cardiology following Pulmonology following Nephrology following Labs and medication were reviewed.. Continue same treatment. Continue with symptomatic treatment. Resume home medication. Monitor labs and vitals. DVT and GI prophylaxis. Further recommendations as per clinical course of the patient Dictation was produced using [employer] dictation software. please excuse any grammatical, word or spelling errors. Objective - Vital Signs Vital signs: Vital Signs Temp 98.2 F 09/03/23 07:58 Pulse 96 09/03/23 08:40 Resp 21 09/03/23 08:15 BP 114/73 09/03/23 07:58 Pulse Ox 89 L 09/03/23 07:58 FiO2 50 09/03/23 07:52 Intake & Output 09/02/23 09/03/23 09/03/23 18:59 06:59 18:59 Intake Total 1280 720 Output Total 550 800 Balance 730 -800 720 Weight 118 kg Intake: Oral 1280 720 Output: Urine 550 800 Other: Voiding Method Indwelling Catheter Indwelling Catheter Indwelling Catheter - Labs CBC & Chem 7: 09/03/23 08:46 09/03/23 08:46 Labs: Abnormal Lab Results - Last 24 Hours (Table) 09/03/23 09/03/23 Range/Units 08:46 08:46 WBC 13.2 H (3.8-10.6) k/uL MCHC 29.3 L (31.0-37.0) g/dL RDW 18.1 H (11.5-15.5) % Neutrophils # 11.2 H (1.3-7.7) k/uL Chloride 96 L (98-107) mmol/L Carbon Dioxide 38 H (22-30) mmol/L BUN 35 H (7-17) mg/dL Glucose 151 H (74-99) mg/dL AST 51 H (14-36) U/L Albumin 3.3 L (3.5-5.0) g/dL Microbiology - Last 24 Hours (Table) 08/28/23 10:25 Blood Culture - Final Blood
--- NOTE | 2023-09-03 11:51 | P.PN ---
Subjective Patient is seen in follow-up for acute kidney injury. Renal function near baseline. On IV Lasix. Admits to good urine output. Has Wolff catheter. No vomiting or diarrhea. Vital signs are stable. General: No acute distress. HEENT: Head exam is unremarkable. On Airvo. LUNGS: Wheezing at bases. HEART: Rate and Rhythm are regular. ABDOMEN: Obese, nontender. EXTREMITITES: Trace edema. Objective - Vital Signs Vital signs: Vital Signs Temp 98.2 F 09/03/23 07:58 Pulse 92 09/03/23 11:35 Resp 20 09/03/23 11:32 BP 97/75 09/03/23 11:32 Pulse Ox 94 L 09/03/23 11:32 FiO2 50 09/03/23 11:23 Intake & Output 09/02/23 09/03/23 09/03/23 18:59 06:59 18:59 Intake Total 1280 720 Output Total 550 800 Balance 730 -800 720 Weight 118 kg Intake: Oral 1280 720 Output: Urine 550 800 Other: Voiding Method Indwelling Catheter Indwelling Catheter Indwelling Catheter - Labs CBC & Chem 7: 09/03/23 08:46 09/03/23 08:46 Labs: Abnormal Lab Results - Last 24 Hours (Table) 09/03/23 09/03/23 Range/Units 08:46 08:46 WBC 13.2 H (3.8-10.6) k/uL MCHC 29.3 L (31.0-37.0) g/dL RDW 18.1 H (11.5-15.5) % Neutrophils # 11.2 H (1.3-7.7) k/uL Chloride 96 L (98-107) mmol/L Carbon Dioxide 38 H (22-30) mmol/L BUN 35 H (7-17) mg/dL Glucose 151 H (74-99) mg/dL AST 51 H (14-36) U/L Albumin 3.3 L (3.5-5.0) g/dL Microbiology - Last 24 Hours (Table) 08/28/23 10:25 Blood Culture - Final Blood Assessment and Plan Plan: Assessment: 1. Acute kidney injury secondary to ATN secondary to cardiorenal syndrome. Imp roved. UA with 1+ protein and no blood. No hydronephrosis noted on kidney ultrasound. 2. Acute on chronic diastolic CHF. 3. Volume overload. Improved with diuresis. 4. Acute on chronic hypoxic respiratory failure secondary to COPD exacerbation and fluid overload. 5. Mild hypokalemia from diuresis. 6. Morbid obesity. 7. Diabetes mellitus. Plan: Maintain IV Lasix. Maintain Farxiga. Maintain low-salt diet and fluid restriction. Replace potassium. Avoid nephrotoxins. DC Wolff catheter tomorrow. Continue to monitor renal function and urine output.
[2023-09-03] MEDS: methylPREDNISolone SOD SUCCI 40 MG/ML 1 ML VIAL IV SCH (12:02)
--- NOTE | 2023-09-03 14:19 | P.PN ---
Subjective Progress Note Date: 09/03/23 HISTORY OF PRESENT ILLNESS: Patient examined this morning at the bedside. Patient currently denies chest pain or pressure. She reports shortness of breath this morning. She remains on BiPAP at the time of examination. Patient is receiving IV diuretics. She also reports a frequent cough. Telemetry reveals atrial fibrillation with heart rate in the 80s. She is currently on IV amiodarone 08/28/2023 Patient examined this morning at the bedside. Patient denies chest pain or pressure. She reports mild shortness of breath. Her main complaint today is lower back discomfort. Patient's creatinine increased to 2.46 from 1.0 yesterday. Potassium 5.5. Patient's blood pressures have been on the low side with a systolic between 8090. 08/29/2023 Patient examined this morning at the bedside. Patient is lethargic this morning upon examination and requires multiple attempts at verbal arousal. Patient remains on BiPAP. Patient's creatinine today is worsened at 2.8. Pressures remain on the low side with a systolic around 90. 08/30/2023 Patient examined this morning at the bedside. Patient currently denies chest pain or pressure. She remains on BiPAP this morning. Patient has been started on IV Lasix. Creatinine 1.56 today. Patient has urinated over 3 L. Vital signs are stable. Blood pressure 130/81. 08/31/2023 Patient examined this morning at the bedside. Patient remains on BiPAP. She denies chest pain or pressure. She reports improvement in her shortness of breath. She remains on IV Lasix. Urine output over the last 24 hours is 4 L. Creatinine today is 1.0. Blood pressures have improved with a systolic greater than 100. 09/01/2023 Patient examined this morning at the bedside. Patient is much more awake today. Patient's daughter is at the bedside. Patient denies chest pain or pressure. She remains on BiPAP at the time of examination. She currently denies shortness of breath. She remains on IV diuretics. BNP yesterday 2460. Acute kidney injury has resolved. Creatinine yesterday 1.0. She remains in atrial fibrillation with a heart rate in the 45w108. Blood pressure has improved with a recent reading of 116/80. 09/02/2023 Patient examined this morning the bedside. Patient denies chest pain or pressure. She currently denies shortness of breath. She remains on BiPAP. Apparently yesterday the patient tolerated nasal cannula for a short period of t lashonda. However with any movement or turning in bed she desatted into the 80s. Blood pressure stable. Telemetry reveals atrial fibrillation. 09/02 Patient states that her breathing is stable right now. But she is on Airvo with pulse ox of 94%. Heart rate is 89, blood pressure 114/73. Repeat blood work reveals WBC 13.2, hemoglobin 9.7. Sodium 140, potassium 3.6, BUN 35 creatinine 0.84. Patient is maintained on IV Lasix 40 mg every 12 hours managed by nephrology. PHYSICAL EXAM: VITAL SIGNS: Reviewed. GENERAL: Well-developed in no acute distress. NECK: Supple. No JVD or thyromegaly LUNGS: Respirations even and unlabored. Lungs diminished bilaterally HEART: Regular rate and rhythm. S1 and S2 heard. EXTREMITIES: Normal range of motion. No clubbing or cyanosis. Peripheral pulses intact. 1-2+ bilateral lower extremity edema ASSESSMENT: Shortness of breath Acute on chronic hypoxic respiratory failure requiring BiPAP Acute COPD exacerbation Acute on chronic heart failure with preserved EF, 50 to 55% Persistent atrial fibrillation Coronary artery disease with previous PCI, details unknown Hypertension Hyperlipidemia Former nicotine dependence Morbid obesity Acute kidney injury likely secondary to hypotension along with diuresis, resolved PLAN: Continue current dose of metoprolol and amiodarone as patient had difficulty controlling atrial fibrillation on admission. Continue decreased dose of amiodarone 200 mg twice a day Cardizem and lisinopril have been discontinued secondary to hypotension this admission Continue IV diuretics, Lasix 40 mg every 12 hours per nephrology Continue to monitor kidney function Wean oxygen as tolerated Further recommendations pending patient course Nurse practitioner note has been reviewed by physician. Signing provider agrees with the documented findings, assessment, and plan of care documented by CASE LOADER OPERATOR as a scribe. Objective - Vital Signs Vital signs: Vital Signs Temp 98.2 F 09/03/23 07:58 Pulse 96 09/03/23 08:40 Resp 21 09/03/23 08:15 BP 114/73 09/03/23 07:58 Pulse Ox 89 L 09/03/23 07:58 FiO2 50 09/03/23 07:52 Intake & Output 09/02/23 09/03/23 09/03/23 18:59 06:59 18:59 Intake Total 1280 720 Output Total 550 800 Balance 730 -800 720 Weight 118 kg Intake: Oral 1280 720 Output: Urine 550 800 Other: Voiding Method Indwelling Catheter Indwelling Catheter Indwelling Catheter - Labs CBC & Chem 7: 09/03/23 08:46 09/03/23 08:46 Labs: Microbiology - Last 24 Hours (Table) 08/28/23 10:25 Blood Culture - Final Blood
--- NOTE | 2023-09-03 16:00 | P.PN ---
Subjective Progress Note Date: 09/03/23 This is a 57-year-old female familiar to our service, patient has been recently admitted and discharged, we saw her on consultation for her COPD and obesity hypoventilation syndrome, with chronic hypoxic respiratory failure, patient however has been recently admitted with atrial fibrillation RVR, and pulmonary edema related to her atrial fibrillation with RVR. She was just discharged 3 days ago by cardiology, patient was readmitted this time with a similar presentation mostly shortness of breath, atrial fibrillation with RVR, and requiring BiPAP treatment upon admission mostly because of her hypoxia and hypercapnia. Patient is morbidly obese, and I saw her again today in the morning for her shortness of breath. Patient was noted to be on BiPAP, 14/6/60%, and her O2 saturation was in the 90s. Patient was hemodynamically stable, her rate seems to be poorly controlled, and cardiology is to address her cardiac arrhythmia/atrial fibrillation with RVR looking back at this patient's history, she is 57 years old with known history of coronary artery disease and stenting, chronic diastolic congestive heart failure, hypertension, chronic atrial fibrillation on Eliquis, non-insulin dependent diabetes, history of chronic venous stasis changes, history of COPD, obstructive sleep apnea syndrom e, obesity hypoventilation syndrome, and again as noted above patient had multiple admissions with similar presentation to the hospital Chest x-ray on this admission clearly showed evidence of moderate to severe congestive heart failure On today's evaluation of 09/03/2023, I am seeing this patient for a follow-up. The patient was on BiPAP at a pressure of 16/6 with an FiO2 of 50% and the patient was transition to Airvo at 40 L with an FiO2 of 50%. Most recent chest x-ray from today still showing evidence of cardiomegaly and perihilar and bibasilar pulm infiltrates unchanged compared to yesterday and this is consistent with CHF and volume overload. The patient continues to be on diuretics with IV Lasix. The patient has been achieving a negative fluid balance while being on Lasix. She is receiving Lasix 40 mg IV every 12 hours and she is also on Diamox to 50 mg p.o. daily. Her current cardiac rhythm is A- fib. The patient remains on amiodarone at 1 mg p.o. twice a day metoprolol 100 mg p.o. twice daily the patient is also on anticoagulation with Eliquis 5 mg p.o. twice a day. She remains on bronchodilators patient was found to be bronchospastic and wheezy patient was started on steroids today. The white cell count 15.2 with a hemoglobin 9.7 and a platelet count of 366. BUN is at 35 with a creatinine of 0.8. Serum bicarb is at 38 and a sodium levels at 140. Procalcitonin level at time of admission was 0.19. Awake and alert and communicating. No signs of encephalopathy at this point in time. Objective - Vital Signs Vital signs: Vital Signs Temp 98.2 F 09/03/23 07:58 Pulse 96 09/03/23 11:21 Resp 21 09/03/23 08:15 BP 114/73 09/03/23 07:58 Pulse Ox 89 L 09/03/23 07:58 FiO2 50 09/03/23 11:23 Intake & Output 09/02/23 09/03/23 09/03/23 18:59 06:59 18:59 Intake Total 1280 720 Output Total 550 800 Balance 730 -800 720 Weight 118 kg Intake: Oral 1280 720 Output: Urine 550 800 Other: Voiding Method Indwelling Catheter Indwelling Catheter Indwelling Catheter - Exam No acute distress, the patient is currently transition to Airvo 40 L with FiO2 of 50%. Calm and comfortable sitting up in a chair. HEENT examination is grossly unremarkable. Neck supple. Full range of motion. No adenopathy thyromegaly or neck vein distention. Cardiovascular examination reveals irregular rhythm rate. S1-S2 normal. No S3 or S4. A systolic murmur is noted. . Heart sounds are distant. Lungs reveal expiratory wheezes and rhonchi. Breath sounds are equal. No crackles. Abdomen, soft, with bowel sounds. No masses or tenderness. Extremities are intact. No cyanosis clubbing and there is +1 pitting edema lower extremities bilaterally. Skin is without rash or lesion. Neurologic examination is brief but nonfocal. - Labs CBC & Chem 7: 09/03/23 08:46 09/03/23 08:46 Labs: Abnormal Lab Results - Last 24 Hours (Table) 09/03/23 09/03/23 Range/Units 08:46 08:46 WBC 13.2 H (3.8-10.6) k/uL MCHC 29.3 L (31.0-37.0) g/dL RDW 18.1 H (11.5-15.5) % Neutrophils # 11.2 H (1.3-7.7) k/uL Chloride 96 L (98-107) mmol/L Carbon Dioxide 38 H (22-30) mmol/L BUN 35 H (7-17) mg/dL Glucose 151 H (74-99) mg/dL AST 51 H (14-36) U/L Albumin 3.3 L (3.5-5.0) g/dL Microbiology - Last 24 Hours (Table) 08/28/23 10:25 Blood Culture - Final Blood Assessment and Plan Plan: Acute hypoxemic respiratory failure secondary to COPD exacerbation, and fluid overload. Responding to a combination of bronchodilators, and diuretics. Currently on Airvo 40 L with an FiO2 of 50% and the patient is alternating with a BiPAP at a pressure of 16/6 with an FiO2 of 50%. She is on IV Lasix and she is producing a negative fluid balance. Acute on chronic dyspnea likely secondary to fluid overload and a component of COPD/asthma exacerbation, and the patient continues to have some ongoing shortness of breath Chronic hypoxic/hypercapnic respiratory failure, please refer to previous blood gas done on this patient. Severe obstructive sleep apnea with an AHI of 41 and the patient has been titrated to a CPAP pressure of 11 cm of water Previous fall and head trauma with fracture of facial bones with areas of skin bruising. Childhood asthma and the patient reports that she was intubated in the past on multiple occasions as a child in [facility]. Body mass index of above 50 Prior history of significant tobacco use. Multiple hospitalizations most recent of which was attributed to the right lower extremity cellulitis, currently inactive MRSA in the sputum cultures on 07/03/2023 History of atrial fibrillation. Rate is controlled and the patient is on long- term anticoagulation with Eliquis. The rate is controlled at this point in time History of hyperlipidemia. History of hypertension. History of coronary artery disease, with previous PCI/stent placement. History of myocardial infarction. Chronic anxiety/depression. Plan Continue BiPAP alternating with Airvo. The patient is at BiPAP at a pressure of 16/6 with an FiO2 of 50% and this has been transitioned to Airvo 40 L with FiO2 of 50%. Continue IV Lasix Continue Diamox 250 mg p.o. daily Monitor electrolytes and watch for any significant metabolic alkalosis Monitor fluid balance and achieve a negative fluid balance over the next 24 hours Continue bronchodilators Start the patient on IV Solu-Medrol regarding ongoing bronchospasm and wheezing Continue metoprolol and amiodarone and anticoagulation with Eliquis Will continue to follow make further recommendations based on her progress.
[2023-09-03 16:12] LABS: Glucose,Whole Blood 180 mg/dL (70-110)
[2023-09-03] MEDS ORDERED: DEXTROSE 50% SYRINGE 50 ML IVP PRN ×2 (16:36)
[2023-09-03] MEDS: INSULIN ASPART (NovoLOG) 100 UNIT/ML VIAL SQ SCH (16:54)
[2023-09-03 20:34] LABS: Glucose,Whole Blood 207 mg/dL (70-110)
[2023-09-04 06:43] LABS: Glucose,Whole Blood 203 mg/dL (70-110)
--- NOTE | 2023-09-04 09:24 | P.PN ---
Subjective Patient is seen in follow-up for acute kidney injury. Renal function near baseline. On IV Lasix. Admits to good urine output. Has Wolff catheter. No vomiting or diarrhea. No active complaints. Vital signs are stable. General: No acute distress. HEENT: Head exam is unremarkable. On Airvo. LUNGS: Wheezing at bases. HEART: Rate and Rhythm are regular. ABDOMEN: Obese, nontender. EXTREMITITES: Trace edema. Objective - Vital Signs Vital signs: Vital Signs Temp 98.2 F 09/04/23 07:53 Pulse 95 09/04/23 09:11 Resp 21 09/04/23 07:53 BP 139/84 09/04/23 07:53 Pulse Ox 91 L 09/04/23 07:53 FiO2 50 09/04/23 08:59 Intake & Output 09/03/23 09/04/23 09/04/23 18:59 06:59 18:59 Intake Total 1440 240 540 Output Total 600 950 Balance 840 -710 540 Weight 118 kg 117.9 kg Intake: Oral 1440 240 540 Output: Urine 600 950 Other: Voiding Method Indwelling Catheter Indwelling Catheter - Labs CBC & Chem 7: 09/03/23 08:46 09/03/23 08:46 Labs: Abnormal Lab Results - Last 24 Hours (Table) 09/03/23 09/03/23 09/03/23 Range/Units 08:46 08:46 16:10 WBC 13.2 H (3.8-10.6) k/uL MCHC 29.3 L (31.0-37.0) g/dL RDW 18.1 H (11.5-15.5) % Neutrophils # 11.2 H (1.3-7.7) k/uL Chloride 96 L (98-107) mmol/L Carbon Dioxide 38 H (22-30) mmol/L BUN 35 H (7-17) mg/dL Glucose 151 H (74-99) mg/dL POC Glucose (mg/dL) 180 H (70-110) mg/dL AST 51 H (14-36) U/L Albumin 3.3 L (3.5-5.0) g/dL 09/03/23 09/04/23 Range/Units 20:32 06:37 WBC (3.8-10.6) k/uL MCHC (31.0-37.0) g/dL RDW (11.5-15.5) % Neutrophils # (1.3-7.7) k/uL Chloride (98-107) mmol/L Carbon Dioxide (22-30) mmol/L BUN (7-17) mg/dL Glucose (74-99) mg/dL POC Glucose (mg/dL) 207 H 203 H (70-110) mg/dL AST (14-36) U/L Albumin (3.5-5.0) g/dL Assessment and Plan Plan: Assessment: 1. Acute kidney injury secondary to ATN secondary to cardiorenal syndrome. Improved. UA with 1+ protein and no blood. No hydronephrosis noted on kidney ultrasound. 2. Acute on chronic diastolic CHF. 3. Volume overload. Improved with diuresis. 4. Acute on chronic hypoxic respiratory failure secondary to COPD exacerbation and fluid overload. 5. Mild hypokalemia from diuresis. 6. Morbid obesity. 7. Diabetes mellitus. Plan: Change Lasix to 40 mg orally twice daily. Maintain Farxiga. Maintain low-salt diet and fluid restriction. Avoid nephrotoxins. Wolff catheter to be removed today. Continue to monitor renal function and urine output. Morning labs pending.
[2023-09-04] MEDS: METOPROLOL TARTRATE 50 MG TAB PO STA (10:49)
[2023-09-04 11:04] LABS: Anisocytosis Slight; Basophils % (A) 0 %; Eosinophils % (A) 0 %; HCT 39.8 % (34.0-46.0); HGB 11.3 gm/dL (11.4-16.0); Hypochromasia Marked; Lymphocytes # (A) 0.4 k/uL (1.0-4.8); Lymphocytes % (A) 4 %; MCH 26.3 pg (25.0-35.0); MCHC 28.3 g/dL (31.0-37.0); MCV 93.1 fL (80.0-100.0); Mean Platelet Volume 9.2; Monocytes # (A) 0.3 k/uL (0-1.0); Monocytes % (A) 2 %; Neutrophils # (A) 10.6 k/uL (1.3-7.7); Neutrophils % (A) 94 %; Platelet Count 337 k/uL (150-450); RBC 4.27 m/uL (3.80-5.40); RDW 17.8 % (11.5-15.5); WBC 11.3 k/uL (3.8-10.6)
[2023-09-04 11:35] LABS: Glucose,Whole Blood 148 mg/dL (70-110)
[2023-09-04 11:41] LABS: ALT 27 U/L (4-34); AST 39 U/L (14-36); African American GFR (CKD) >90 (>60 ml/min/1.73 sqM); Albumin 3.4 g/dL (3.5-5.0); Alkaline Phosphatase 120 U/L (38-126); Anion Gap 9 mmol/L; Blood Urea Nitrogen 36 mg/dL (7-17); Carbon Dioxide 35 mmol/L (22-30); Chloride 94 mmol/L (98-107); Glucose 251 mg/dL (74-99); Non-African American GFR(CKD) 83 (>60 ml/min/1.73 sqM); Sodium 138 mmol/L (137-145); Total Bilirubin 0.8 mg/dL (0.2-1.3)
--- NOTE | 2023-09-04 13:43 | P.PN ---
Subjective Progress Note Date: 09/04/23 This is a 57-year-old female familiar to our service, patient has been recently admitted and discharged, we saw her on consultation for her COPD and obesity hypoventilation syndrome, with chronic hypoxic respiratory failure, patient however has been recently admitted with atrial fibrillation RVR, and pulmonary edema related to her atrial fibrillation with RVR. She was just discharged 3 days ago by cardiology, patient was readmitted this time with a similar presentation mostly shortness of breath, atrial fibrillation with RVR, and requiring BiPAP treatment upon admission mostly because of her hypoxia and hypercapnia. Patient is morbidly obese, and I saw her again today in the morning for her shortness of breath. Patient was noted to be on BiPAP, 14/6/60%, and her O2 saturation was in the 90s. Patient was hemodynamically stable, her rate seems to be poorly controlled, and cardiology is to address her cardiac arrhythmia/atrial fibrillation with RVR looking back at this patient's history, she is 57 years old with known history of coronary artery disease and stenting, chronic diastolic congestive heart failure, hypertension, chronic atrial fibrillation on Eliquis, non-insulin dependent diabetes, history of chronic venous stasis changes, history of COPD, obstructive sleep apnea syndrom e, obesity hypoventilation syndrome, and again as noted above patient had multiple admissions with similar presentation to the hospital Chest x-ray on this admission clearly showed evidence of moderate to severe congestive heart failure On today's evaluation of 09/03/2023, I am seeing this patient for a follow-up. The patient was on BiPAP at a pressure of 16/6 with an FiO2 of 50% and the patient was transition to Airvo at 40 L with an FiO2 of 50%. Most recent chest x-ray from today still showing evidence of cardiomegaly and perihilar and bibasilar pulm infiltrates unchanged compared to yesterday and this is consistent with CHF and volume overload. The patient continues to be on diuretics with IV Lasix. The patient has been achieving a negative fluid balance while being on Lasix. She is receiving Lasix 40 mg IV every 12 hours and she is also on Diamox to 50 mg p.o. daily. Her current cardiac rhythm is A- fib. The patient remains on amiodarone at 1 mg p.o. twice a day metoprolol 100 mg p.o. twice daily the patient is also on anticoagulation with Eliquis 5 mg p.o. twice a day. She remains on bronchodilators patient was found to be bronchospastic and wheezy patient was started on steroids today. The white cell count 15.2 with a hemoglobin 9.7 and a platelet count of 366. BUN is at 35 with a creatinine of 0.8. Serum bicarb is at 38 and a sodium levels at 140. Procalcitonin level at time of admission was 0.19. Awake and alert and communicating. No signs of encephalopathy at this point in time. On today's evaluation of 09/04/2023, I am seeing the patient for a follow-up. The patient this morning, and comfortable and the patient is on Airvo 40 L with an FiO2 of 50%. Overnight, she spent on a BiPAP at a pressure of 16/6 with an FiO2 of 50%. She remains on IV Lasix and this was switched to oral Lasix by nephrology. The fluid balance has been negative over the past 24 hours in the order of 1 L. She is producing adequate amount of urine output. BUN is at 36 w ith a creatinine of 0.8 and a serum bicarb is at 35. Patient also has a WBC of 11.3 with a hemoglobin of 11.3 and a platelet count of 337. No altered mentation. No signs of any hypercapnic respiratory failure or CO2 narcosis. The patient remains on DuoNeb updrafts. The patient is on IV Solu-Medrol 40 mg every 6 hours. The patient on anticoagulation with Eliquis 5 mg p.o. twice a day. The patient is also on metoprolol 150 mg twice a day. Rest of the medication remains unchanged. Objective - Vital Signs Vital signs: Vital Signs Temp 98.2 F 09/04/23 07:53 Pulse 95 09/04/23 09:11 Resp 21 09/04/23 07:53 BP 139/84 09/04/23 07:53 Pulse Ox 91 L 09/04/23 07:53 FiO2 50 09/04/23 08:59 Intake & Output 09/03/23 09/04/23 09/04/23 18:59 06:59 18:59 Intake Total 1440 240 720 Output Total 600 950 Balance 840 -710 720 Weight 118 kg 117.9 kg Intake: Oral 1440 240 720 Output: Urine 600 950 Other: Voiding Method Indwelling Catheter Indwelling Catheter Indwelling Catheter - Exam No acute distress, the patient is currently transition to Airvo 40 L with FiO2 of 50%. Calm and comfortable sitting up in a chair. HEENT examination is grossly unremarkable. Neck supple. Full range of motion. No adenopathy thyromegaly or neck vein distention. Cardiovascular examination reveals irregular rhythm rate. S1-S2 normal. No S3 or S4. A systolic murmur is noted. . Heart sounds are distant. Lungs reveal expiratory wheezes and rhonchi. Breath sounds are equal. No crackles. Abdomen, soft, with bowel sounds. No masses or tenderness. Extremities are intact. No cyanosis clubbing and there is +1 pitting edema lo wer extremities bilaterally. Skin is without rash or lesion. Neurologic examination is brief but nonfocal. - Labs CBC & Chem 7: 09/04/23 09:36 09/04/23 09:36 Labs: Abnormal Lab Results - Last 24 Hours (Table) 09/03/23 09/03/23 09/04/23 Range/Units 16:10 20:32 06:37 POC Glucose (mg/dL) 180 H 207 H 203 H (70-110) mg/dL Assessment and Plan Plan: Acute hypoxemic respiratory failure secondary to COPD exacerbation, and fluid overload. Responding to a combination of bronchodilators, and diuretics. Currently on Airvo 40 L with an FiO2 of 50% and the patient is alternating with a BiPAP at a pressure of 16/6 with an FiO2 of 50%. She continues to produce adequate amount of urine output and the patient was switched to oral Lasix. She remains on bronchodilators. She remains on systemic steroids with IV centimeter of 40 mg every 6 hours. Acute on chronic dyspnea likely secondary to fluid overload and a component of COPD/asthma exacerbation, and the patient continues to have some ongoing shortness of breath Chronic hypoxic/hypercapnic respiratory failure, please refer to previous blood gas done on this patient. Severe obstructive sleep apnea with an AHI of 41 and the patient has been titrated to a CPAP pressure of 11 cm of water Previous fall and head trauma with fracture of facial bones with areas of skin bruising. Childhood asthma and the patient reports that she was intubated in the past on multiple occasions as a child in [facility]. Body mass index of above 50 Prior history of significant tobacco use. Multiple hospitalizations most recent of which was attributed to the right lower extremity cellulitis, currently inactive MRSA in the sputum cultures on 07/03/2023 History of atrial fibrillation. Rate is controlled and the patient is on long- term anticoagulation with Eliquis. The rate is controlled at this point in time History of hyperlipidemia. History of hypertension. History of coronary artery disease, with previous PCI/stent placement. History of myocardial infarction. Chronic anxiety/depression. Plan Continue BiPAP alternating with Airvo. The patient is at BiPAP at a pressure of 16/6 with an FiO2 of 50% and this has been transitioned to Airvo 40 L with FiO2 of 50%. Attempt to wean down FiO2 as tolerated to maintain saturation above 90% Continue oral Lasix Continue Diamox 250 mg p.o. daily Monitor electrolytes and watch for any significant metabolic alkalosis Monitor fluid balance and achieve a negative fluid balance over the next [address] continue IV Solu-Medrol regarding ongoing bronchospasm and wheezing, dose of 40 mg every 6 hours Continue metoprolol and amiodarone and anticoagulation with Eliquis, the patient is on metoprolol 150 mg p.o. twice a day Will continue to follow make further recommendations based on her progress.
--- NOTE | 2023-09-04 14:13 | P.PN ---
Subjective Progress Note Date: 09/04/23 HISTORY OF PRESENT ILLNESS: Patient examined this morning at the bedside. Patient currently denies chest pain or pressure. She reports shortness of breath this morning. She remains on BiPAP at the time of examination. Patient is receiving IV diuretics. She also reports a frequent cough. Telemetry reveals atrial fibrillation with heart rate in the 80s. She is currently on IV amiodarone 08/28/2023 Patient examined this morning at the bedside. Patient denies chest pain or pressure. She reports mild shortness of breath. Her main complaint today is lower back discomfort. Patient's creatinine increased to 2.46 from 1.0 yesterday. Potassium 5.5. Patient's blood pressures have been on the low side with a systolic between 8090. 08/29/2023 Patient examined this morning at the bedside. Patient is lethargic this morning upon examination and requires multiple attempts at verbal arousal. Patient remains on BiPAP. Patient's creatinine today is worsened at 2.8. Pressures remain on the low side with a systolic around 90. 08/30/2023 Patient examined this morning at the bedside. Patient currently denies chest pain or pressure. She remains on BiPAP this morning. Patient has been started on IV Lasix. Creatinine 1.56 today. Patient has urinated over 3 L. Vital signs are stable. Blood pressure 130/81. 08/31/2023 Patient examined this morning at the bedside. Patient remains on BiPAP. She denies chest pain or pressure. She reports improvement in her shortness of breath. She remains on IV Lasix. Urine output over the last 24 hours is 4 L. Creatinine today is 1.0. Blood pressures have improved with a systolic greater than 100. 09/01/2023 Patient examined this morning at the bedside. Patient is much more awake today. Patient's daughter is at the bedside. Patient denies chest pain or pressure. She remains on BiPAP at the time of examination. She currently denies shortness of breath. She remains on IV diuretics. BNP yesterday 2460. Acute kidney injury has resolved. Creatinine yesterday 1.0. She remains in atrial fibrillation with a heart rate in the [id number]. Blood pressure has improved with a recent reading of 116/80. 09/02/2023 Patient examined this morning the bedside. Patient denies chest pain or pressure. She currently denies shortness of breath. She remains on BiPAP. Apparently yesterday the patient tolerated nasal cannula for a short period of t lashonda. However with any movement or turning in bed she desatted into the 80s. Blood pressure stable. Telemetry reveals atrial fibrillation. 09/02 Patient states that her breathing is stable right now. But she is on Airvo with pulse ox of 94%. Heart rate is 89, blood pressure 114/73. Repeat blood work reveals WBC 13.2, hemoglobin 9.7. Sodium 140, potassium 3.6, BUN 35 creatinine 0.84. Patient is maintained on IV Lasix 40 mg every 12 hours managed by nephrology. 09/03 Patient remains on Airvo with pulse ox of 93%. Blood pressure 129/81, heart rate in the 90s. Nephrology has transition IV Lasix to oral 40 mg twice daily. Repeat blood work reveals hemoglobin 11.3. Sodium 138, potassium 4, BUN 36 creatinine 0.8. PHYSICAL EXAM: VITAL SIGNS: Reviewed. GENERAL: Well-developed in no acute distress. NECK: Supple. No JVD or thyromegaly LUNGS: Respirations even and unlabored. Lungs diminished bilaterally HEART: Regular rate and rhythm. S1 and S2 heard. EXTREMITIES: Normal range of motion. No clubbing or cyanosis. Peripheral pulses intact. 1-2+ bilateral lower extremity edema ASSESSMENT: Shortness of breath Acute on chronic hypoxic respiratory failure requiring BiPAP Acute COPD exacerbation Acute on chronic heart failure with preserved EF, 50 to 55% Persistent atrial fibrillation Coronary artery disease with previous PCI, details unknown Hypertension Hyperlipidemia Former nicotine dependence Morbid obesity Acute kidney injury likely secondary to hypotension along with diuresis, resolved PLAN: Continue current dose of metoprolol and amiodarone as patient had difficulty controlling atrial fibrillation on admission. Continue decreased dose of amiodarone 200 mg twice a day and increase metoprolol tartrate 250 mg twice daily with plan to transition this to long-acting tomorrow Cardizem and lisinopril have been discontinued secondary to hypotension this admission Continue oral diuretics, Lasix 40 mg every 12 hours per nephrology Continue to monitor kidney function Wean oxygen as tolerated Further recommendations pending patient course Nurse practitioner note has been reviewed by physician. Signing provider agrees with the documented findings, assessment, and plan of care documented by [facility] [employer] as a scribe. Objective - Vital Signs Vital signs: Vital Signs Temp 98.2 F 09/04/23 07:53 Pulse 95 09/04/23 09:11 Resp 21 09/04/23 07:53 BP 139/84 09/04/23 07:53 Pulse Ox 91 L 09/04/23 07:53 FiO2 50 09/04/23 08:59 Intake & Output 09/03/23 09/04/23 09/04/23 18:59 06:59 18:59 Intake Total 1440 240 720 Output Total 600 950 Balance 840 -710 720 Weight 118 kg 117.9 kg Intake: Oral 1440 240 720 Output: Urine 600 950 Other: Voiding Method Indwelling Catheter Indwelling Catheter Indwelling Catheter - Labs CBC & Chem 7: 09/04/23 09:36 09/04/23 09:36 Labs: Abnormal Lab Results - Last 24 Hours (Table) 09/03/23 09/03/23 09/04/23 Range/Units 16:10 20:32 06:37 POC Glucose (mg/dL) 180 H 207 H 203 H (70-110) mg/dL
--- NOTE | 2023-09-04 15:07 | P.PN ---
Subjective Patient is a 57-year-old female with a past medical history of CAD with stenting, chronic diastolic heart failure, hypertension, hyperlipidemia, chronic atrial fibrillation on anticoagulation with Eliquis, type II [id number] ependent diabetes mellitus, chronic venous stasis dermatitis with chronic bilateral lower extremity edema, severe obstructive sleep apnea CPAP dependent, and chronic hypoxic respiratory failure secondary to advanced COPD home oxygen dependent 3 L presented to the ER for worsening shortness of breath. Patient was only discharged on hospital day ago, patient stated she was all right till today when in the afternoon started noticing that her breathing was getting worse. Patient was complaining of her heart beating fast and her chest feeling tight. Patient complains of shortness of breath at rest and on exertion as well. Patient denies any fever or chills. There is no complaint of orthopnea or PND. Because of these worsening symptoms, patient called EMS and she was brought to the ER Initial lab work done in the ER showed WBC 11.1, hemoglobin 12.2, platelet count 271, sodium 137, potassium 4.3, BUN 27, creatinine 0.61, lactate 1.4, troponin 0.012, proBNP 5490 EKG done in the ER showed heart rate of 114, QRS 81, irregular rate and rhythm, no ST segment elevation or depression seen, no T-wave inversions seen. Chest x-ray done in the ER moderate to severe CHF Patient admitted to internal medicine service 08/25. Patient seen and examined. Patient was in respiratory distress overnight, continues to be in A-fib with rapid ventricular rate, was started on amiodarone drip. Currently on BiPAP with FiO2 60% 08/27/2023 Patient today is awake and alert at baseline She still complaining from significant dyspnea, currently on BiPAP She remains on IV Lasix 40 mg twice daily, as well as her Eliquis and prednisone burst taper Amiodarone drip switched to oral amiodarone 400 mg today. 08/28/2023 patient still dyspneic start requiring BiPAP. She Answers Questions Approp riately but Looks Tired She Denies Chest Pain or Abdominal Pain. Blood Pressure Is Borderline and This Morning Was 80/40, Blood Pressure Pills Were Held Patient with No Fever Still Tachypneic but Not Tachycardic Her Creatinine Jumped up 1.0 up to 2.4 Therefore We Switch Her IV Lasix to Oral and Hold Her Lisinopril and Other Blood Pressure Normal This Morning. We'll Keep Monitoring Blood Pressure and Creatinine for Now. We'll Send for Urine Analysis Bladder Scan Is 0 Currently she is on Eliquis 5 mg prednisone 30 mg 08/29/2023 Patient remains on BiPAP, today it is somewhat lower lethargic and harder to wake up. Mostly this is related to her metabolic encephalopathy as she has si gnificantly worsening renal function yesterday up to 2.4 which might be contributing besides other medical problems affecting her mentation. Patient is afebrile, Blood pressure slightly better 90/57, she is still tachypneic with a rate around 25, Labs from today are pending She has renal ultrasound which I reviewed myself showing no hydronephrosis but incidental finding of cholelithiasis 5.5 x 6 2.7 x 1.8 cm. She remains on Eliquis 5 mg, Lasix Cardizem and Aldactone held Continue with metoprolol 100 mg and midodrine 5 mg was added Also she is on amiodarone. 08/30/2023 Patient on BiPAP this morning, she is more awake and alert, she follows commands and answers questions appropriately She still have some difficulty breathing and BiPAP is helping her. She denies abdominal pain or chest pain. Blood pressure improved currently 108/75, patient is tachypneic with a breathing rate 26-27 Chest x-ray showing bibasilar infiltrates Creatinine was 2.8 Patient remains on IV Lasix and prednisone 30 mg and Eliquis 5 mg Aldactone and lisinopril are placed on hold. Midodrine is currently 5 mg 3 times per day. I am resuming the care of the patient 09/04/2023 Patient fully awake and oriented today She is an 4 L/min of oxygen via nasal cannula, gradually and slowly coming down She still have prolonged expiration and mild basilar crepitation She has a Wolff. No leg edema Abdomen soft and appetite is good Patient hemodynamically stable Her labs look stable and creatinine improved significantly down to 0.8 Lisinopril and Cardizem remains on hold, currently she is on amiodarone 200 mg twice daily, metoprolol increased to 150 mg twice daily and Diamox and Farxiga. Also she is getting midodrine 5 mg 3 times daily. She is on Eliquis 5 mg and Lasix is switched to 40 mg twice daily She is on the steroids 40 mg every 8 hours Objective - Vital Signs Vital signs: Vital Signs Temp 98.2 F 09/04/23 07:53 Pulse 95 09/04/23 09:11 Resp 21 09/04/23 07:53 BP 139/84 09/04/23 07:53 Pulse Ox 91 L 09/04/23 07:53 FiO2 50 09/04/23 08:59 Intake & Output 09/03/23 09/04/23 09/04/23 18:59 06:59 18:59 Intake Total 1440 240 540 Output Total 600 950 Balance 840 -710 540 Weight 118 kg 117.9 kg Intake: Oral 1440 240 540 Output: Urine 600 950 Other: Voiding Method Indwelling Catheter Indwelling Catheter Indwelling Catheter - Exam --GENERAL: The patient is alert and awake but drowsy. On BiPAP machine. Obese . HEENT: Pupils are round and equally reacting to light. EOMI. No scleral icterus. No conjunctival pallor. Normocephalic, atraumatic. No pharyngeal erythema. No thyromegaly. CARDIOVASCULAR: S1 and S2 present. No murmurs, rubs, or gallops. PU-LMONARY: Chest is clear to auscultation, no wheezing , no crackles. decreased air entry on both sides. ABDOMEN: Soft, nontender, nondistended, normoactive bowel sounds. No palpable organomegaly. MUSCULOSKELETAL: No joint swelling or deformity. EXTREMITIES: No cyanosis, clubbing, or pedal edema. NEUROLOGICAL: Gross neurological examination did not reveal any focal deficits. SKIN: No rashes. no petechiae. - Labs CBC & Chem 7: 09/04/23 09:36 09/04/23 09:36 Labs: Abnormal Lab Results - Last 24 Hours (Table) 09/03/23 09/03/23 09/03/23 Range/Units 08:46 16:10 20:32 Neutrophils # 11.2 H (1.3-7.7) k/uL POC Glucose (mg/dL) 180 H 207 H (70-110) mg/dL 09/04/23 Range/Units 06:37 Neutrophils # (1.3-7.7) k/uL POC Glucose (mg/dL) 203 H (70-110) mg/dL Assessment and Plan Assessment: Acute on chronic hypoxic respiratory failure Acute on chronic diastolic heart failure exacerbation Acute COPD exacerbation, with chronic oxygen dependency, baseline 3-4 L at all times acute kidney injury Metabolic encephalopathy Cholelithiasis, asymptomatic Severe obstructive sleep apnea. Atrial fibrillation with RVR in pt with Chronic atrial fibrillation on anticoagulation with Eliquis CAD with previous stent Hypertension, currently borderline hypertensive Hyperlipidemia Bilateral lower extremity edema with venous stasis dermatitis. Type II [id number]-[id number] diabetes mellitus with hemoglobin A1c of 7%. Morbid obesity with BMI of 50.8 kg/m Plan: Continue with metoprolol and amiodarone and monitor blood pressure. Continue with Eliquis Continue with oral Lasix and Diamox Continue with IV Solu-Medrol 40 mg consult nephrology Cardiology and pulmonary team consult Labs and medication were reviewed.. Continue same treatment. Continue with symptomatic treatment. Resume home medication. Monitor labs and vitals. DVT and GI prophylaxis. Further recommendations as per clinical course of the patient DVT prophylaxis: Eliquis GI Prophylaxis: Pepcid PT/OT: Pending Prognosis is guarded
[2023-09-04 16:13] LABS: Glucose,Whole Blood 289 mg/dL (70-110)
[2023-09-04] MEDS: FUROSEMIDE 40 MG TAB PO SCH (16:36)
[2023-09-04 20:02] LABS: Glucose,Whole Blood 196 mg/dL (70-110)
[2023-09-04] MEDS: METOPROLOL TARTRATE 50 MG TAB PO SCH (21:31)
[2023-09-05 06:13] LABS: Glucose,Whole Blood 252 mg/dL (70-110)
[2023-09-05 09:55] LABS: African American GFR (CKD) 80 (>60 ml/min/1.73 sqM); Anion Gap 10 mmol/L; Blood Urea Nitrogen 42 mg/dL (7-17); Calcium 9.4 mg/dL (8.4-10.2); Carbon Dioxide 35 mmol/L (22-30); Chloride 93 mmol/L (98-107); Glucose 213 mg/dL (74-99); Magnesium 1.8 mg/dL (1.6-2.3); Non-African American GFR(CKD) 69 (>60 ml/min/1.73 sqM); Potassium 3.8 mmol/L (3.5-5.1); Sodium 138 mmol/L (137-145)
--- NOTE | 2023-09-05 10:37 | P.PN ---
Subjective Patient is seen in follow-up for acute kidney injury. Renal function near baseline. On po Lasix. Admits to good urine output. Wolff catheter removed September 04, 2023. No vomiting or diarrhea. No active complaints. Vital signs are stable. General: No acute distress. HEENT: Head exam is unremarkable. On Airvo. LUNGS: Wheezing at bases. HEART: Rate and Rhythm are regular. ABDOMEN: Obese, nontender. EXTREMITITES: Trace edema. Objective - Vital Signs Vital signs: Vital Signs Temp 98.1 F 09/05/23 08:00 Pulse 100 09/05/23 08:09 Resp 22 09/05/23 08:00 BP 104/76 09/05/23 08:00 Pulse Ox 94 L 09/05/23 08:00 FiO2 50 09/05/23 08:00 Intake & Output 09/04/23 09/05/23 09/05/23 18:59 06:59 18:59 Intake Total 1704 480 360 Output Total 500 350 Balance 1204 130 360 Weight 119.9 kg Intake: Oral 1704 480 360 Output: Urine 500 350 Other: Voiding Method Bedside Commode Bedside Commode Bedside Commode # Voids 3 0 - Labs CBC & Chem 7: 09/04/23 09:36 09/05/23 08:23 Labs: Abnormal Lab Results - Last 24 Hours (Table) 09/04/23 09/04/23 09/04/23 Range/Units 09:36 09:36 11:33 WBC 11.3 H (3.8-10.6) k/uL Hgb 11.3 L (11.4-16.0) gm/dL MCHC 28.3 L (31.0-37.0) g/dL RDW 17.8 H (11.5-15.5) % Neutrophils # 10.6 H (1.3-7.7) k/uL Lymphocytes # 0.4 L (1.0-4.8) k/uL Chloride 94 L (98-107) mmol/L Carbon Dioxide 35 H (22-30) mmol/L BUN 36 H (7-17) mg/dL Glucose 251 H (74-99) mg/dL POC Glucose (mg/dL) 148 H (70-110) mg/dL AST 39 H (14-36) U/L Albumin 3.4 L (3.5-5.0) g/dL 09/04/23 09/04/23 09/05/23 Range/Units 16:12 19:51 06:09 WBC (3.8-10.6) k/uL Hgb (11.4-16.0) gm/dL MCHC (31.0-37.0) g/dL RDW (11.5-15.5) % Neutrophils # (1.3-7.7) k/uL Lymphocytes # (1.0-4.8) k/uL Chloride (98-107) mmol/L Carbon Dioxide (22-30) mmol/L BUN (7-17) mg/dL Glucose (74-99) mg/dL POC Glucose (mg/dL) 289 H 196 H 252 H (70-110) mg/dL AST (14-36) U/L Albumin (3.5-5.0) g/dL 09/05/23 Range/Units 08:23 WBC (3.8-10.6) k/uL Hgb (11.4-16.0) gm/dL MCHC (31.0-37.0) g/dL RDW (11.5-15.5) % Neutrophils # (1.3-7.7) k/uL Lymphocytes # (1.0-4.8) k/uL Chloride 93 L (98-107) mmol/L Carbon Dioxide 35 H (22-30) mmol/L BUN 42 H (7-17) mg/dL Glucose 213 H (74-99) mg/dL POC Glucose (mg/dL) (70-110) mg/dL AST (14-36) U/L Albumin (3.5-5.0) g/dL Assessment and Plan Plan: Assessment: 1. Acute kidney injury secondary to ATN secondary to cardiorenal syndrome. Improved. UA with 1+ protein and no blood. No hydronephrosis noted on kidney ultrasound. 2. Acute on chronic diastolic CHF. 3. Volume overload. Improved with diuresis. 4. Acute on chronic hypoxic respiratory failure secondary to COPD exacerbation and fluid overload. 5. Mild hypokalemia from diuresis. Replaced. Better. 6. Morbid obesity. 7. Diabetes mellitus. Plan: Maintain oral Lasix. Add maintenance potassium supplementation. Maintain Farxiga. Maintain low-salt diet and fluid restriction. Avoid nephrotoxins. Continue to monitor renal function and urine output.
--- NOTE | 2023-09-05 11:04 | P.PN ---
Subjective Progress Note Date: 09/05/23 This is a 57-year-old female familiar to our service, patient has been recently admitted and discharged, we saw her on consultation for her COPD and obesity hypoventilation syndrome, with chronic hypoxic respiratory failure, patient however has been recently admitted with atrial fibrillation RVR, and pulmonary edema related to her atrial fibrillation with RVR. She was just discharged 3 days ago by cardiology, patient was readmitted this time with a similar presentation mostly shortness of breath, atrial fibrillation with RVR, and requiring BiPAP treatment upon admission mostly because of her hypoxia and hypercapnia. Patient is morbidly obese, and I saw her again today in the morning for her shortness of breath. Patient was noted to be on BiPAP, 14/6/60%, and her O2 saturation was in the 90s. Patient was hemodynamically stable, her rate seems to be poorly controlled, and cardiology is to address her cardiac arrhythmia/atrial fibrillation with RVR looking back at this patient's history, she is 57 years old with known history of coronary artery disease and stenting, chronic diastolic congestive heart failure, hypertension, chronic atrial fibrillation on Eliquis, non-insulin dependent diabetes, history of chronic venous stasis changes, history of COPD, obstructive sleep apnea syndrom e, obesity hypoventilation syndrome, and again as noted above patient had multiple admissions with similar presentation to the hospital Chest x-ray on this admission clearly showed evidence of moderate to severe congestive heart failure On today's evaluation of 09/03/2023, I am seeing this patient for a follow-up. The patient was on BiPAP at a pressure of 16/6 with an FiO2 of 50% and the patient was transition to Airvo at 40 L with an FiO2 of 50%. Most recent chest x-ray from today still showing evidence of cardiomegaly and perihilar and bibasilar pulm infiltrates unchanged compared to yesterday and this is consistent with CHF and volume overload. The patient continues to be on diuretics with IV Lasix. The patient has been achieving a negative fluid balance while being on Lasix. She is receiving Lasix 40 mg IV every 12 hours and she is also on Diamox to 50 mg p.o. daily. Her current cardiac rhythm is A- fib. The patient remains on amiodarone at 1 mg p.o. twice a day metoprolol 100 mg p.o. twice daily the patient is also on anticoagulation with Eliquis 5 mg p.o. twice a day. She remains on bronchodilators patient was found to be bronchospastic and wheezy patient was started on steroids today. The white cell count 15.2 with a hemoglobin 9.7 and a platelet count of 366. BUN is at 35 with a creatinine of 0.8. Serum bicarb is at 38 and a sodium levels at 140. Procalcitonin level at time of admission was 0.19. Awake and alert and communicating. No signs of encephalopathy at this point in time. On today's evaluation of 09/04/2023, I am seeing the patient for a follow-up. The patient this morning, and comfortable and the patient is on Airvo 40 L with an FiO2 of 50%. Overnight, she spent on a BiPAP at a pressure of 16/6 with an FiO2 of 50%. She remains on IV Lasix and this was switched to oral Lasix by nephrology. The fluid balance has been negative over the past 24 hours in the order of 1 L. She is producing adequate amount of urine output. BUN is at 36 w ith a creatinine of 0.8 and a serum bicarb is at 35. Patient also has a WBC of 11.3 with a hemoglobin of 11.3 and a platelet count of 337. No altered mentation. No signs of any hypercapnic respiratory failure or CO2 narcosis. The patient remains on DuoNeb updrafts. The patient is on IV Solu-Medrol 40 mg every 6 hours. The patient on anticoagulation with Eliquis 5 mg p.o. twice a day. The patient is also on metoprolol 150 mg twice a day. Rest of the medication remains unchanged. On 09/05/2023, the patient remains on Airvo at 40 L with an FiO2 of 50%. Her current pulse ox is in the order of 94 to 96%. No change in her overall condition. Remains on Lasix and this has been switched to oral Lasix 40 mg p.o. twice a day and combination with Diamox. She remains on bronchodilators. She remains on steroids. Labs from today show a BUN of 42 creatinine of 0.9 and a sodium level is 138. Fluid balance over the past 24 hours is not accurately measured it seems that the patient was not in the "fluid balance. The most recent chest x-ray was done on 09/03/2023 and the patient was found to have coarse perihilar and bibasilar pulmonary fibrosis) essentially unchanged. This is most consistent with CHF. Otherwise, no other significant events over the past 24 hours. IV fluids are currently at KVO. The patient remains on Lopressor 150 mg p.o. twice a day. The patient remains on anticoagulation with Eliquis 5 mg p.o. twice a day. Objective - Vital Signs Vital signs: Vital Signs Temp 98.1 F 09/05/23 08:00 Pulse 100 09/05/23 08:09 Resp 22 09/05/23 08:00 BP 104/76 09/05/23 08:00 Pulse Ox 94 L 09/05/23 08:00 FiO2 50 09/05/23 08:00 Intake & Output 09/04/23 09/05/23 09/05/23 18:59 06:59 18:59 Intake Total 1704 480 360 Output Total 500 350 Balance 1204 130 360 Weight 119.9 kg Intake: Oral 1704 480 360 Output: Urine 500 350 Other: Voiding Method Bedside Commode Bedside Commode Bedside Commode # Voids 3 0 - Exam No acute distress, the patient is currently transition to Airvo 40 L with FiO2 of 50%. Calm and comfortable sitting up in a chair. HEENT examination is grossly unremarkable. Neck supple. Full range of motion. No adenopathy thyromegaly or neck vein distention. Cardiovascular examination reveals irregular rhythm rate. S1-S2 normal. No S3 or S4. A systolic murmur is noted. . Heart sounds are distant. Lungs reveal expiratory wheezes and rhonchi. Breath sounds are equal. No crackles. Abdomen, soft, with bowel sounds. No masses or tenderness. Extremities are intact. No cyanosis clubbing and there is +1 pitting edema lower extremities bilaterally. Skin is without rash or lesion. Neurologic examination is brief but nonfocal. - Labs CBC & Chem 7: 09/04/23 09:36 09/05/23 08:23 Labs: Abnormal Lab Results - Last 24 Hours (Table) 09/04/23 09/04/23 09/04/23 Range/Units 09:36 09:36 11:33 WBC 11.3 H (3.8-10.6) k/uL Hgb 11.3 L (11.4-16.0) gm/dL MCHC 28.3 L (31.0-37.0) g/dL RDW 17.8 H (11.5-15.5) % Neutrophils # 10.6 H (1.3-7.7) k/uL Lymphocytes # 0.4 L (1.0-4.8) k/uL Chloride 94 L (98-107) mmol/L Carbon Dioxide 35 H (22-30) mmol/L BUN 36 H (7-17) mg/dL Glucose 251 H (74-99) mg/dL POC Glucose (mg/dL) 148 H (70-110) mg/dL AST 39 H (14-36) U/L Albumin 3.4 L (3.5-5.0) g/dL 09/04/23 09/04/23 09/05/23 Range/Units 16:12 19:51 06:09 WBC (3.8-10.6) k/uL Hgb (11.4-16.0) gm/dL MCHC (31.0-37.0) g/dL RDW (11.5-15.5) % Neutrophils # (1.3-7.7) k/uL Lymphocytes # (1.0-4.8) k/uL Chloride (98-107) mmol/L Carbon Dioxide (22-30) mmol/L BUN (7-17) mg/dL Glucose (74-99) mg/dL POC Glucose (mg/dL) 289 H 196 H 252 H (70-110) mg/dL AST (14-36) U/L Albumin (3.5-5.0) g/dL 09/05/23 Range/Units 08:23 WBC (3.8-10.6) k/uL Hgb (11.4-16.0) gm/dL MCHC (31.0-37.0) g/dL RDW (11.5-15.5) % Neutrophils # (1.3-7.7) k/uL Lymphocytes # (1.0-4.8) k/uL Chloride 93 L (98-107) mmol/L Carbon Dioxide 35 H (22-30) mmol/L BUN 42 H (7-17) mg/dL Glucose 213 H (74-99) mg/dL POC Glucose (mg/dL) (70-110) mg/dL AST (14-36) U/L Albumin (3.5-5.0) g/dL Assessment and Plan Plan: Acute hypoxemic respiratory failure secondary to COPD exacerbation, and fluid overload. Responding to a combination of bronchodilators, and diuretics. Currently on Airvo 40 L with an FiO2 of 50% and the patient is alternating with a BiPAP at a pressure of 16/6 with an FiO2 of 50%. She continues to produce adequate amount of urine output and the patient was switched to oral Lasix. She remains on bronchodilators. No significant change in overall oxygenation. She continues to be on the same treatment for now.. Acute on chronic dyspnea likely secondary to fluid overload and a component of COPD/asthma exacerbation, and the patient continues to have some ongoing shortness of breath Chronic hypoxic/hypercapnic respiratory failure, please refer to previous blood gas done on this patient. Severe obstructive sleep apnea with an AHI of 41 and the patient has been titrated to a CPAP pressure of 11 cm of water Previous fall and head trauma with fracture of facial bones with areas of skin b ruising. Childhood asthma and the patient reports that she was intubated in the past on multiple occasions as a child in [facility]. Body mass index of above 50 Prior history of significant tobacco use. Multiple hospitalizations most recent of which was attributed to the right lower extremity cellulitis, currently inactive MRSA in the sputum cultures on 07/03/2023 History of atrial fibrillation. Rate is controlled and the patient is on long- term anticoagulation with Eliquis. The rate is controlled at this point in time History of hyperlipidemia. History of hypertension. History of coronary artery disease, with previous PCI/stent placement. History of myocardial infarction. Chronic anxiety/depression. Plan Continue BiPAP alternating with Airvo. The patient is at BiPAP at a pressure of 16/6 with an FiO2 of 50% and this has been transitioned to Airvo 40 L with FiO2 of 50%. Attempt to wean down FiO2 as tolerated to maintain saturation above 90% Continue oral Lasix, 40 mg p.o. twice a day monitor the fluid balance Continue Diamox 250 mg p.o. daily Monitor electrolytes and watch for any significant metabolic alkalosis Monitor fluid balance and achieve a negative fluid balance over the next 24 hours Continue bronchodilators continue IV Solu-Medrol regarding ongoing bronchospasm and wheezing, dose of 40 mg every 6 hours Continue metoprolol and amiodarone and anticoagulation with Eliquis, the patient is on metoprolol 150 mg p.o. twice a day Will continue to follow make further recommendations based on her progress.
[2023-09-05] MEDS: POTASSIUM CHLORIDE ER 20 MEQ TAB.ER PO SCH (11:06)
[2023-09-05 11:40] LABS: Glucose,Whole Blood 212 mg/dL (70-110)
--- NOTE | 2023-09-05 13:45 | P.PN ---
Subjective Patient is a 57-year-old female with a past medical history of CAD with stenting, chronic diastolic heart failure, hypertension, hyperlipidemia, chronic atrial fibrillation on anticoagulation with Eliquis, type II [id number] ependent diabetes mellitus, chronic venous stasis dermatitis with chronic bilateral lower extremity edema, severe obstructive sleep apnea CPAP dependent, and chronic hypoxic respiratory failure secondary to advanced COPD home oxygen dependent 3 L presented to the ER for worsening shortness of breath. Patient was only discharged on hospital day ago, patient stated she was all right till today when in the afternoon started noticing that her breathing was getting worse. Patient was complaining of her heart beating fast and her chest feeling tight. Patient complains of shortness of breath at rest and on exertion as well. Patient denies any fever or chills. There is no complaint of orthopnea or PND. Because of these worsening symptoms, patient called EMS and she was brought to the ER Initial lab work done in the ER showed WBC 11.1, hemoglobin 12.2, platelet count 271, sodium 137, potassium 4.3, BUN 27, creatinine 0.61, lactate 1.4, troponin 0.012, proBNP 5490 EKG done in the ER showed heart rate of 114, QRS 81, irregular rate and rhythm, no ST segment elevation or depression seen, no T-wave inversions seen. Chest x-ray done in the ER moderate to severe CHF Patient admitted to internal medicine service 08/25. Patient seen and examined. Patient was in respiratory distress overnight, continues to be in A-fib with rapid ventricular rate, was started on amiodarone drip. Currently on BiPAP with FiO2 60% 08/27/2023 Patient today is awake and alert at baseline She still complaining from significant dyspnea, currently on BiPAP She remains on IV Lasix 40 mg twice daily, as well as her Eliquis and prednisone burst taper Amiodarone drip switched to oral amiodarone 400 mg today. 08/28/2023 patient still dyspneic start requiring BiPAP. She Answers Questions Approp riately but Looks Tired She Denies Chest Pain or Abdominal Pain. Blood Pressure Is Borderline and This Morning Was 80/40, Blood Pressure Pills Were Held Patient with No Fever Still Tachypneic but Not Tachycardic Her Creatinine Jumped up 1.0 up to 2.4 Therefore We Switch Her IV Lasix to Oral and Hold Her Lisinopril and Other Blood Pressure Normal This Morning. We'll Keep Monitoring Blood Pressure and Creatinine for Now. We'll Send for Urine Analysis Bladder Scan Is 0 Currently she is on Eliquis 5 mg prednisone 30 mg 08/29/2023 Patient remains on BiPAP, today it is somewhat lower lethargic and harder to wake up. Mostly this is related to her metabolic encephalopathy as she has si gnificantly worsening renal function yesterday up to 2.4 which might be contributing besides other medical problems affecting her mentation. Patient is afebrile, Blood pressure slightly better 90/57, she is still tachypneic with a rate around 25, Labs from today are pending She has renal ultrasound which I reviewed myself showing no hydronephrosis but incidental finding of cholelithiasis 5.5 x 6 2.7 x 1.8 cm. She remains on Eliquis 5 mg, Lasix Cardizem and Aldactone held Continue with metoprolol 100 mg and midodrine 5 mg was added Also she is on amiodarone. 08/30/2023 Patient on BiPAP this morning, she is more awake and alert, she follows commands and answers questions appropriately She still have some difficulty breathing and BiPAP is helping her. She denies abdominal pain or chest pain. Blood pressure improved currently 108/75, patient is tachypneic with a breathing rate 26-27 Chest x-ray showing bibasilar infiltrates Creatinine was 2.8 Patient remains on IV Lasix and prednisone 30 mg and Eliquis 5 mg Aldactone and lisinopril are placed on hold. Midodrine is currently 5 mg 3 times per day. I am resuming the care of the patient 09/04/2023 Patient fully awake and oriented today She is an 4 L/min of oxygen via nasal cannula, gradually and slowly coming down She still have prolonged expiration and mild basilar crepitation She has a Wolff. No leg edema Abdomen soft and appetite is good Patient hemodynamically stable Her labs look stable and creatinine improved significantly down to 0.8 Lisinopril and Cardizem remains on hold, currently she is on amiodarone 200 mg twice daily, metoprolol increased to 150 mg twice daily and Diamox and Farxiga. Also she is getting midodrine 5 mg 3 times daily. She is on Eliquis 5 mg and Lasix is switched to 40 mg twice daily She is on the steroids 40 mg every 8 hours 09/05/2023 Patient sitting up in chair asking when she can be discharged Explained the patient she is still on 40 L/min of oxygen via nasal high flow cannula and she is agreeable to stay now No chest pain no other new complaint She is still on oral Lasix 40 mg twice daily and potassium chloride 20 mill equivalent Also she is on Solu-Medrol 40 mg Objective - Vital Signs Vital signs: Vital Signs Temp 98 F 09/05/23 11:05 Pulse 100 09/05/23 11:20 Resp 20 09/05/23 11:05 BP 122/63 09/05/23 11:05 Pulse Ox 95 09/05/23 11:05 FiO2 45 09/05/23 11:05 Intake & Output 09/04/23 09/05/23 09/05/23 18:59 06:59 18:59 Intake Total 1704 480 360 Output Total 500 350 Balance 1204 130 360 Weight 119.9 kg Intake: Oral 1704 480 360 Output: Urine 500 350 Other: Voiding Method Bedside Commode Bedside Commode Bedside Commode # Voids 3 0 - Exam --GENERAL: The patient is alert and awake but drowsy. On BiPAP machine. Obese . HEENT: Pupils are round and equally reacting to light. EOMI. No scleral icterus. No conjunctival pallor. Normocephalic, atraumatic. No pharyngeal erythema. No thyromegaly. CARDIOVASCULAR: S1 and S2 present. No murmurs, rubs, or gallops. PU-LMONARY: Chest is clear to auscultation, no wheezing , no crackles. decreased air entry on both sides. ABDOMEN: Soft, nontender, nondistended, normoactive bowel sounds. No palpable organomegaly. MUSCULOSKELETAL: No joint swelling or deformity. EXTREMITIES: No cyanosis, clubbing, or pedal edema. NEUROLOGICAL: Gross neurological examination did not reveal any focal deficits. SKIN: No rashes. no petechiae. - Labs CBC & Chem 7: 09/04/23 09:36 09/05/23 08:23 Labs: Abnormal Lab Results - Last 24 Hours (Table) 09/04/23 09/04/23 09/05/23 Range/Units 16:12 19:51 06:09 Chloride (98-107) mmol/L Carbon Dioxide (22-30) mmol/L BUN (7-17) mg/dL Glucose (74-99) mg/dL POC Glucose (mg/dL) 289 H 196 H 252 H (70-110) mg/dL 09/05/23 09/05/23 Range/Units 08:23 11:38 Chloride 93 L (98-107) mmol/L Carbon Dioxide 35 H (22-30) mmol/L BUN 42 H (7-17) mg/dL Glucose 213 H (74-99) mg/dL POC Glucose (mg/dL) 212 H (70-110) mg/dL Assessment and Plan Assessment: Acute on chronic hypoxic respiratory failure Acute on chronic diastolic heart failure exacerbation Acute COPD exacerbation, with chronic oxygen dependency, baseline 3-4 L at all times acute kidney injury Metabolic encephalopathy Cholelithiasis, asymptomatic Severe obstructive sleep apnea. Atrial fibrillation with RVR in pt with Chronic atrial fibrillation on anticoagulation with Eliquis CAD with previous stent Hypertension, currently borderline hypertensive Hyperlipidemia Bilateral lower extremity edema with venous stasis dermatitis. Type II [id number] diabetes mellitus with hemoglobin A1c of 7%. Morbid obesity with BMI of 50.8 kg/m Plan: Continue with metoprolol and amiodarone and monitor blood pressure. Continue with Eliquis Continue with oral Lasix and Diamox Continue with IV Solu-Medrol 40 mg consult nephrology Cardiology and pulmonary team consult Labs and medication were reviewed.. Continue same treatment. Continue with symptomatic treatment. Resume home medication. Monitor labs and vitals. DVT and GI prophylaxis. Further recommendations as per clinical course of the pat ient DVT prophylaxis: Eliquis GI Prophylaxis: Pepcid PT/OT: Pending Prognosis is guarded
--- NOTE | 2023-09-05 14:31 | P.PN ---
Subjective Progress Note Date: 09/05/23 HISTORY OF PRESENT ILLNESS: Patient examined this morning at the bedside. Patient currently denies chest pain or pressure. She reports shortness of breath this morning. She remains on BiPAP at the time of examination. Patient is receiving IV diuretics. She also reports a frequent cough. Telemetry reveals atrial fibrillation with heart rate in the 80s. She is currently on IV amiodarone 08/28/2023 Patient examined this morning at the bedside. Patient denies chest pain or pressure. She reports mild shortness of breath. Her main complaint today is lower back discomfort. Patient's creatinine increased to 2.46 from 1.0 yesterday. Potassium 5.5. Patient's blood pressures have been on the low side with a systolic between 8090. 08/29/2023 Patient examined this morning at the bedside. Patient is lethargic this morning upon examination and requires multiple attempts at verbal arousal. Patient remains on BiPAP. Patient's creatinine today is worsened at 2.8. Pressures remain on the low side with a systolic around 90. 08/30/2023 Patient examined this morning at the bedside. Patient currently denies chest pain or pressure. She remains on BiPAP this morning. Patient has been started on IV Lasix. Creatinine 1.56 today. Patient has urinated over 3 L. Vital signs are stable. Blood pressure 130/81. 08/31/2023 Patient examined this morning at the bedside. Patient remains on BiPAP. She denies chest pain or pressure. She reports improvement in her shortness of breath. She remains on IV Lasix. Urine output over the last 24 hours is 4 L. Creatinine today is 1.0. Blood pressures have improved with a systolic greater than 100. 09/01/2023 Patient examined this morning at the bedside. Patient is much more awake today. Patient's daughter is at the bedside. Patient denies chest pain or pressure. She remains on BiPAP at the time of examination. She currently denies shortness of breath. She remains on IV diuretics. BNP yesterday 2460. Acute kidney injury has resolved. Creatinine yesterday 1.0. She remains in atrial fibrillation with a heart rate in the [id number]. Blood pressure has improved with a recent reading of 116/80. 09/02/2023 Patient examined this morning the bedside. Patient denies chest pain or pressure. She currently denies shortness of breath. She remains on BiPAP. Apparently yesterday the patient tolerated nasal cannula for a short period of t lashonda. However with any movement or turning in bed she desatted into the 80s. Blood pressure stable. Telemetry reveals atrial fibrillation. 09/02 Patient states that her breathing is stable right now. But she is on Airvo with pulse ox of 94%. Heart rate is 89, blood pressure 114/73. Repeat blood work reveals WBC 13.2, hemoglobin 9.7. Sodium 140, potassium 3.6, BUN 35 creatinine 0.84. Patient is maintained on IV Lasix 40 mg every 12 hours managed by nephrology. 09/03 Patient remains on Airvo with pulse ox of 93%. Blood pressure 129/81, heart rate in the 90s. Nephrology has transition IV Lasix to oral 40 mg twice daily. Repeat blood work reveals hemoglobin 11.3. Sodium 138, potassium 4, BUN 36 creatinine 0.8. 09/04 Patient believes her breathing is slowly improving. Lung sounds are improving. Heart rate is 100, blood pressure 104/76, pulse ox 94%. Yesterday, we increased metoprolol tartrate to 150 mg twice daily and will continue this dosing. Patient is also on amiodarone 200 mg twice daily. PHYSICAL EXAM: VITAL SIGNS: Reviewed. GENERAL: Well-developed in no acute distress. NECK: Supple. No JVD or thyromegaly LUNGS: Respirations even and unlabored. Lungs diminished bilaterally HEART: Regular rate and rhythm. S1 and S2 heard. EXTREMITIES: Normal range of motion. No clubbing or cyanosis. Peripheral pulses intact. 1-2+ bilateral lower extremity edema ASSESSMENT: Shortness of breath Acute on chronic hypoxic respiratory failure requiring BiPAP Acute COPD exacerbation Acute on chronic heart failure with preserved EF, 50 to 55% Persistent atrial fibrillation Coronary artery disease with previous PCI, details unknown Hypertension Hyperlipidemia Former nicotine dependence Morbid obesity Acute kidney injury likely secondary to hypotension along with diuresis, r esolved PLAN: Continue current dose of metoprolol and amiodarone as patient had difficulty controlling atrial fibrillation on admission. Amiodarone 150 mg twice daily and metoprolol tartrate 150 mg twice daily Cardizem and lisinopril have been discontinued secondary to hypotension this admission Continue oral diuretics, Lasix 40 mg p.o. every 12 hours per nephrology Continue to monitor kidney function Wean oxygen as tolerated Further recommendations pending patient course Nurse practitioner note has been reviewed by physician. Signing provider agrees with the documented findings, assessment, and plan of care documented by STONECUTTER APPRENTICE HAND as a scribe. Objective - Vital Signs Vital signs: Vital Signs Temp 98.1 F 09/05/23 04:00 Pulse 100 09/05/23 08:09 Resp 20 09/05/23 04:00 BP 128/88 09/05/23 06:42 Pulse Ox 96 09/05/23 07:44 FiO2 50 09/05/23 07:44 Intake & Output 09/04/23 09/05/23 09/05/23 18:59 06:59 18:59 Intake Total 1704 480 Output Total 500 350 Balance 1204 130 Weight 119.9 kg Intake: Oral 1704 480 Output: Urine 500 350 Other: Voiding Method Bedside Commode Bedside Commode # Voids 3 0 - Labs CBC & Chem 7: 09/04/23 09:36 09/05/23 08:23 Labs: Abnormal Lab Results - Last 24 Hours (Table) 09/04/23 09/04/23 09/04/23 Range/Units 09:36 09:36 11:33 WBC 11.3 H (3.8-10.6) k/uL Hgb 11.3 L (11.4-16.0) gm/dL MCHC 28.3 L (31.0-37.0) g/dL RDW 17.8 H (11.5-15.5) % Neutrophils # 10.6 H (1.3-7.7) k/uL Lymphocytes # 0.4 L (1.0-4.8) k/uL Chloride 94 L (98-107) mmol/L Carbon Dioxide 35 H (22-30) mmol/L BUN 36 H (7-17) mg/dL Glucose 251 H (74-99) mg/dL POC Glucose (mg/dL) 148 H (70-110) mg/dL AST 39 H (14-36) U/L Albumin 3.4 L (3.5-5.0) g/dL 09/04/23 09/04/23 09/05/23 Range/Units 16:12 19:51 06:09 WBC (3.8-10.6) k/uL Hgb (11.4-16.0) gm/dL MCHC (31.0-37.0) g/dL RDW (11.5-15.5) % Neutrophils # (1.3-7.7) k/uL Lymphocytes # (1.0-4.8) k/uL Chloride (98-107) mmol/L Carbon Dioxide (22-30) mmol/L BUN (7-17) mg/dL Glucose (74-99) mg/dL POC Glucose (mg/dL) 289 H 196 H 252 H (70-110) mg/dL AST (14-36) U/L Albumin (3.5-5.0) g/dL 09/05/23 Range/Units 08:23 WBC (3.8-10.6) k/uL Hgb (11.4-16.0) gm/dL MCHC (31.0-37.0) g/dL RDW (11.5-15.5) % Neutrophils # (1.3-7.7) k/uL Lymphocytes # (1.0-4.8) k/uL Chloride 93 L (98-107) mmol/L Carbon Dioxide 35 H (22-30) mmol/L BUN 42 H (7-17) mg/dL Glucose 213 H (74-99) mg/dL POC Glucose (mg/dL) (70-110) mg/dL AST (14-36) U/L Albumin (3.5-5.0) g/dL
[2023-09-05 16:47] LABS: Glucose,Whole Blood 187 mg/dL (70-110)
[2023-09-05 20:03] LABS: Glucose,Whole Blood 196 mg/dL (70-110)
[2023-09-06 06:13] LABS: Glucose,Whole Blood 208 mg/dL (70-110)
[2023-09-06 10:57] LABS: African American GFR (CKD) 82 (>60 ml/min/1.73 sqM); Anion Gap 9 mmol/L; Blood Urea Nitrogen 48 mg/dL (7-17); Calcium 9.3 mg/dL (8.4-10.2); Carbon Dioxide 33 mmol/L (22-30); Chloride 95 mmol/L (98-107); Glucose 218 mg/dL (74-99); Magnesium 1.7 mg/dL (1.6-2.3); Non-African American GFR(CKD) 71 (>60 ml/min/1.73 sqM); Sodium 137 mmol/L (137-145)
[2023-09-06 11:07] LABS: Potassium 4.4 mmol/L (3.5-5.1)
--- NOTE | 2023-09-06 11:19 | P.PN ---
Subjective Patient is seen in follow-up for acute kidney injury. Renal function near baseline. On po Lasix. Admits to good urine output. Wolff catheter removed September 04, 2023. No vomiting or diarrhea. No active complaints. Vital signs are stable. General: No acute distress. HEENT: Head exam is unremarkable. On Airvo. LUNGS: Wheezing at bases. HEART: Rate and Rhythm are regular. ABDOMEN: Obese, nontender. EXTREMITITES: Trace edema. Objective - Vital Signs Vital signs: Vital Signs Temp 97.9 F 09/06/23 08:20 Pulse 95 09/06/23 08:20 Resp 18 09/06/23 08:20 BP 134/79 09/06/23 08:20 Pulse Ox 91 L 09/06/23 08:20 FiO2 40 09/06/23 08:00 Intake & Output 09/05/23 09/06/23 09/06/23 18:59 06:59 18:59 Intake Total 360 0 240 Output Total 400 300 Balance -40 -300 240 Weight 120.7 kg Intake: Oral 360 0 240 Output: Urine 400 300 Other: Voiding Method Bedside Commode Bedside Commode # Voids 1 # Bowel Movements 1 - Labs CBC & Chem 7: 09/04/23 09:36 09/06/23 09:38 Labs: Abnormal Lab Results - Last 24 Hours (Table) 09/05/23 09/05/23 09/05/23 Range/Units 11:38 16:42 19:58 Chloride (98-107) mmol/L Carbon Dioxide (22-30) mmol/L BUN (7-17) mg/dL Glucose (74-99) mg/dL POC Glucose (mg/dL) 212 H 187 H 196 H (70-110) mg/dL 09/06/23 09/06/23 Range/Units 06:07 09:38 Chloride 95 L (98-107) mmol/L Carbon Dioxide 33 H (22-30) mmol/L BUN 48 H (7-17) mg/dL Glucose 218 H (74-99) mg/dL POC Glucose (mg/dL) 208 H (70-110) mg/dL Assessment and Plan Plan: Assessment: 1. Acute kidney injury secondary to ATN secondary to cardiorenal syndrome. Improved. UA with 1+ protein and no blood. No hydronephrosis noted on kidney ultrasound. 2. Acute on chronic diastolic CHF. 3. Volume overload. Improved with diuresis. 4. Acute on chronic hypoxic respiratory failure secondary to COPD exacerbation and fluid overload. 5. Mild hypokalemia from diuresis. Replaced. Better. 6. Morbid obesity. 7. Diabetes mellitus. Plan: Maintain oral Lasix with potassium supplementation. Maintain Farxiga. Maintain low-salt diet and fluid restriction. Avoid nephrotoxins. Continue to monitor renal function and urine output. Repeat BMP and magnesium level 2 to 3 days postdischarge. Follow-up outpatient in 1 week. Also advised to monitor her weight closely at home. To notify physician if develops worsening edema or gains more than 3 pounds in 1 week duration.
[2023-09-06 11:37] LABS: Glucose,Whole Blood 214 mg/dL (70-110)
--- NOTE | 2023-09-06 12:51 | P.PN ---
Subjective Progress Note Date: 09/06/23 HISTORY OF PRESENT ILLNESS: Patient examined this morning at the bedside. Patient currently denies chest pain or pressure. She reports shortness of breath this morning. She remains on BiPAP at the time of examination. Patient is receiving IV diuretics. She also reports a frequent cough. Telemetry reveals atrial fibrillation with heart rate in the 80s. She is currently on IV amiodarone 08/28/2023 Patient examined this morning at the bedside. Patient denies chest pain or pressure. She reports mild shortness of breath. Her main complaint today is lower back discomfort. Patient's creatinine increased to 2.46 from 1.0 yesterday. Potassium 5.5. Patient's blood pressures have been on the low side with a systolic between 8090. 08/29/2023 Patient examined this morning at the bedside. Patient is lethargic this morning upon examination and requires multiple attempts at verbal arousal. Patient remains on BiPAP. Patient's creatinine today is worsened at 2.8. Pressures remain on the low side with a systolic around 90. 08/30/2023 Patient examined this morning at the bedside. Patient currently denies chest pain or pressure. She remains on BiPAP this morning. Patient has been started on IV Lasix. Creatinine 1.56 today. Patient has urinated over 3 L. Vital signs are stable. Blood pressure 130/81. 08/31/2023 Patient examined this morning at the bedside. Patient remains on BiPAP. She denies chest pain or pressure. She reports improvement in her shortness of breath. She remains on IV Lasix. Urine output over the last 24 hours is 4 L. Creatinine today is 1.0. Blood pressures have improved with a systolic greater than 100. 09/01/2023 Patient examined this morning at the bedside. Patient is much more awake today. Patient's daughter is at the bedside. Patient denies chest pain or pressure. She remains on BiPAP at the time of examination. She currently denies shortness of breath. She remains on IV diuretics. BNP yesterday 2460. Acute kidney injury has resolved. Creatinine yesterday 1.0. She remains in atrial fibrillation with a heart rate in the [id number]. Blood pressure has improved with a recent reading of 116/80. 09/02/2023 Patient examined this morning the bedside. Patient denies chest pain or pressure. She currently denies shortness of breath. She remains on BiPAP. Apparently yesterday the patient tolerated nasal cannula for a short period of t lashonda. However with any movement or turning in bed she desatted into the 80s. Blood pressure stable. Telemetry reveals atrial fibrillation. 09/02 Patient states that her breathing is stable right now. But she is on Airvo with pulse ox of 94%. Heart rate is 89, blood pressure 114/73. Repeat blood work reveals WBC 13.2, hemoglobin 9.7. Sodium 140, potassium 3.6, BUN 35 creatinine 0.84. Patient is maintained on IV Lasix 40 mg every 12 hours managed by nephrology. 09/03 Patient remains on Airvo with pulse ox of 93%. Blood pressure 129/81, heart rate in the 90s. Nephrology has transition IV Lasix to oral 40 mg twice daily. Repeat blood work reveals hemoglobin 11.3. Sodium 138, potassium 4, BUN 36 creatinine 0.8. 09/04 Patient believes her breathing is slowly improving. Lung sounds are improving. Heart rate is 100, blood pressure 104/76, pulse ox 94%. Yesterday, we increased metoprolol tartrate to 150 mg twice daily and will continue this dosing. Patient is also on amiodarone 200 mg twice daily. 09/05 Patient's heart rate is running 105-111. Yesterday, we continued her on the metoprolol tartrate 150 mg twice daily and amiodarone 200 mg twice daily. Blood pressure is 124/90. Repeat blood work reveals sodium 137, potassium 4.4, BUN 48 creatinine 0.91. PHYSICAL EXAM: VITAL SIGNS: Reviewed. GENERAL: Well-developed in no acute distress. NECK: Supple. No JVD or thyromegaly LUNGS: Respirations even and unlabored. Lungs diminished bilaterally HEART: Regular rate and rhythm. S1 and S2 heard. EXTREMITIES: Normal range of motion. No clubbing or cyanosis. Peripheral puls es intact. 1-2+ bilateral lower extremity edema ASSESSMENT: Shortness of breath Acute on chronic hypoxic respiratory failure requiring BiPAP Acute COPD exacerbation Acute on chronic heart failure with preserved EF, 50 to 55% Persistent atrial fibrillation Coronary artery disease with previous PCI, details unknown Hypertension Hyperlipidemia Former nicotine dependence Morbid obesity Acute kidney injury likely secondary to hypotension along with diuresis, resolved PLAN: Continue current dose of metoprolol tartrate 150 mg twice daily Discontinue amiodarone and start Multaq 400 mg twice daily this evening. Plan for electrocardioversion in about 1 to 2 weeks in the postop setting. Cardizem and lisinopril have been discontinued secondary to hypotension this admission Continue oral diuretics, Lasix 40 mg p.o. every 12 hours per nephrology Continue to monitor kidney function Wean oxygen as tolerated Further recommendations pending patient course Nurse practitioner note has been reviewed by physician. Signing provider agrees with the documented findings, assessment, and plan of care documented by LANDSCAPE MANAGER as a scribe. Objective - Vital Signs Vital signs: Vital Signs Temp 97.7 F 09/06/23 04:00 Pulse 110 H 09/06/23 08:19 Resp 19 09/06/23 04:00 BP 124/90 09/06/23 04:00 Pulse Ox 90 L 09/06/23 08:00 FiO2 40 09/06/23 08:00 Intake & Output 09/05/23 09/06/23 09/06/23 18:59 06:59 18:59 Intake Total 360 0 Output Total 400 300 Balance -40 -300 Weight 120.7 kg Intake: Oral 360 0 Output: Urine 400 300 Other: Voiding Method Bedside Commode Bedside Commode # Voids 1 - Labs CBC & Chem 7: 09/04/23 09:36 09/06/23 09:38 Labs: Abnormal Lab Results - Last 24 Hours (Table) 09/05/23 09/05/23 09/05/23 Range/Units 08:23 11:38 16:42 Chloride 93 L (98-107) mmol/L Carbon Dioxide 35 H (22-30) mmol/L BUN 42 H (7-17) mg/dL Glucose 213 H (74-99) mg/dL POC Glucose (mg/dL) 212 H 187 H (70-110) mg/dL 09/05/23 09/06/23 Range/Units 19:58 06:07 Chloride (98-107) mmol/L Carbon Dioxide (22-30) mmol/L BUN (7-17) mg/dL Glucose (74-99) mg/dL POC Glucose (mg/dL) 196 H 208 H (70-110) mg/dL
--- NOTE | 2023-09-06 13:14 | P.PN ---
Subjective Progress Note Date: 09/06/23 This is a 57-year-old female familiar to our service, patient has been recently admitted and discharged, we saw her on consultation for her COPD and obesity hypoventilation syndrome, with chronic hypoxic respiratory failure, patient however has been recently admitted with atrial fibrillation RVR, and pulmonary edema related to her atrial fibrillation with RVR. She was just discharged 3 days ago by cardiology, patient was readmitted this time with a similar presentation mostly shortness of breath, atrial fibrillation with RVR, and requiring BiPAP treatment upon admission mostly because of her hypoxia and hypercapnia. Patient is morbidly obese, and I saw her again today in the morning for her shortness of breath. Patient was noted to be on BiPAP, 14/6/60%, and her O2 saturation was in the 90s. Patient was hemodynamically stable, her rate seems to be poorly controlled, and cardiology is to address her cardiac arrhythmia/atrial fibrillation with RVR looking back at this patient's history, she is 57 years old with known history of coronary artery disease and stenting, chronic diastolic congestive heart failure, hypertension, chronic atrial fibrillation on Eliquis, non-insulin dependent diabetes, history of chronic venous stasis changes, history of COPD, obstructive sleep apnea syndrom e, obesity hypoventilation syndrome, and again as noted above patient had multiple admissions with similar presentation to the hospital Chest x-ray on this admission clearly showed evidence of moderate to severe congestive heart failure On today's evaluation of 09/03/2023, I am seeing this patient for a follow-up. The patient was on BiPAP at a pressure of 16/6 with an FiO2 of 50% and the patient was transition to Airvo at 40 L with an FiO2 of 50%. Most recent chest x-ray from today still showing evidence of cardiomegaly and perihilar and bibasilar pulm infiltrates unchanged compared to yesterday and this is consistent with CHF and volume overload. The patient continues to be on diuretics with IV Lasix. The patient has been achieving a negative fluid balance while being on Lasix. She is receiving Lasix 40 mg IV every 12 hours and she is also on Diamox to 50 mg p.o. daily. Her current cardiac rhythm is A- fib. The patient remains on amiodarone at 1 mg p.o. twice a day metoprolol 100 mg p.o. twice daily the patient is also on anticoagulation with Eliquis 5 mg p.o. twice a day. She remains on bronchodilators patient was found to be bronchospastic and wheezy patient was started on steroids today. The white cell count 15.2 with a hemoglobin 9.7 and a platelet count of 366. BUN is at 35 with a creatinine of 0.8. Serum bicarb is at 38 and a sodium levels at 140. Procalcitonin level at time of admission was 0.19. Awake and alert and communicating. No signs of encephalopathy at this point in time. On today's evaluation of 09/04/2023, I am seeing the patient for a follow-up. The patient this morning, and comfortable and the patient is on Airvo 40 L with an FiO2 of 50%. Overnight, she spent on a BiPAP at a pressure of 16/6 with an FiO2 of 50%. She remains on IV Lasix and this was switched to oral Lasix by nephrology. The fluid balance has been negative over the past 24 hours in the order of 1 L. She is producing adequate amount of urine output. BUN is at 36 w ith a creatinine of 0.8 and a serum bicarb is at 35. Patient also has a WBC of 11.3 with a hemoglobin of 11.3 and a platelet count of 337. No altered mentation. No signs of any hypercapnic respiratory failure or CO2 narcosis. The patient remains on DuoNeb updrafts. The patient is on IV Solu-Medrol 40 mg every 6 hours. The patient on anticoagulation with Eliquis 5 mg p.o. twice a day. The patient is also on metoprolol 150 mg twice a day. Rest of the medication remains unchanged. On 09/05/2023, the patient remains on Airvo at 40 L with an FiO2 of 50%. Her current pulse ox is in the order of 94 to 96%. No change in her overall condition. Remains on Lasix and this has been switched to oral Lasix 40 mg p.o. twice a day and combination with Diamox. She remains on bronchodilators. She remains on steroids. Labs from today show a BUN of 42 creatinine of 0.9 and a sodium level is 138. Fluid balance over the past 24 hours is not accurately measured it seems that the patient was not in the "fluid balance. The most recent chest x-ray was done on 09/03/2023 and the patient was found to have coarse perihilar and bibasilar pulmonary fibrosis) essentially unchanged. This is most consistent with CHF. Otherwise, no other significant events over the past 24 hours. IV fluids are currently at KVO. The patient remains on Lopressor 150 mg p.o. twice a day. The patient remains on anticoagulation with Eliquis 5 mg p.o. twice a day. On 09/06/2023, the patient is feeling well. She is on Airvo and she is at 35 L with an FiO2 of 35%. I am going to transition this patient to nasal cannula high flow at 15 L. Will gradually going to wean down FiO2 as tolerated to maintain a saturation above 90%. For the most part, the patient is doing well. She is producing adequate amount of urine output. Less bronchospastic and wheezy. Remains on bronchodilators. Remains on IV Solu-Medrol. Currently she is on Lasix 40 mg p.o. twice a day. She is also on anticoagulants 5 mg p.o. twice a day. She is utilizing the incentive spirometer. BUN is at 48 with a creatinine of 0.9 and sodium levels of 137. No other significant events otherwise for now. No signs of any altered mentation. Clinically stable. Objective - Vital Signs Vital signs: Vital Signs Temp 97.9 F 09/06/23 08:20 Pulse 95 09/06/23 08:20 Resp 18 09/06/23 08:20 BP 134/79 09/06/23 08:20 Pulse Ox 91 L 09/06/23 08:20 FiO2 40 09/06/23 08:00 Intake & Output 09/05/23 09/06/23 09/06/23 18:59 06:59 18:59 Intake Total 360 0 240 Output Total 400 300 Balance -40 -300 240 Weight 120.7 kg Intake: Oral 360 0 240 Output: Urine 400 300 Other: Voiding Method Bedside Commode Bedside Commode # Voids 1 # Bowel Movements 1 - Exam No acute distress, the patient is currently transition to Airvo 35 L with an FiO2 of 35%,, comfortable, no signs of any respite distress. She has morbid obesity with a BMI of 47.1. She has obvious cushingoid features HEENT examination is grossly unremarkable. Neck supple. Full range of motion. No adenopathy thyromegaly or neck vein distention. Cardiovascular examination reveals irregular rhythm rate. S1-S2 normal. No S3 or S4. A systolic murmur is noted. . Heart sounds are distant. Lungs reveal expiratory wheezes and rhonchi. Breath sounds are equal. No crackles. Abdomen, soft, with bowel sounds. No masses or tenderness. Extremities are intact. No cyanosis clubbing and there is +1 pitting edema lower extremities bilaterally. Skin is without rash or lesion. Neurologic examination is brief but nonfocal. - Labs CBC & Chem 7: 09/04/23 09:36 09/06/23 09:38 Labs: Abnormal Lab Results - Last 24 Hours (Table) 09/05/23 09/05/23 09/05/23 Range/Units 11:38 16:42 19:58 POC Glucose (mg/dL) 212 H 187 H 196 H (70-110) mg/dL 09/06/23 Range/Units 06:07 POC Glucose (mg/dL) 208 H (70-110) mg/dL Assessment and Plan Plan: Acute hypoxic respiratory failure, multifactorial. This is related to her COPD exacerbation and fluid overload and the patient's oxygenation gradually improving. The patient is currently on Airvo at 35 L and the patient will be switched to high flow nasal cannula 15 L/min nasal cannula. Patient has developed acute on top of chronic hypoxic respiratory failure. Acute on chronic dyspnea likely secondary to fluid overload and a component of COPD/asthma exacerbation, and the patient continues to have some ongoing shortness of breath, overall improving Chronic hypoxic/hypercapnic respiratory failure, please refer to previous blood gas done on this patient. Severe obstructive sleep apnea with an AHI of 41 and the patient has been titrated to a CPAP pressure of 11 cm of water Previous fall and head trauma with fracture of facial bones with areas of skin bruising. Childhood asthma and the patient reports that she was intubated in the past on multiple occasions as a child in [facility]. Body mass index of above 50 Prior history of significant tobacco use. Multiple hospitalizations most recent of which was attributed to the right lower extremity cellulitis, currently inactive MRSA in the sputum cultures on 07/03/2023 History of atrial fibrillation. Rate is controlled and the patient is on long- term anticoagulation with Eliquis. The rate is controlled at this point in time History of hyperlipidemia. History of hypertension. History of coronary artery disease, with previous PCI/stent placement. History of myocardial infarction. Chronic anxiety/depression. Plan Discontinue the airway and utilize high flow oxygen BiPAP overnight. Attempt to wean down FiO2 as tolerated to maintain saturation above 90% Continue oral Lasix, 40 mg p.o. twice a day monitor the fluid balance Continue Diamox 250 mg p.o. daily Monitor electrolytes and watch for any significant metabolic alkalosis Monitor fluid balance and achieve a negative fluid balance over the next 24 hours Continue bronchodilators continue IV Solu-Medrol regarding ongoing bronchospasm and wheezing, dose of 40 mg every 6 hours Continue metoprolol and amiodarone and anticoagulation with Eliquis, the patient is on metoprolol 150 mg p.o. twice a day Will continue to follow make further recommendations based on her progress.
[2023-09-06 16:28] LABS: Glucose,Whole Blood 386 mg/dL (70-110)
[2023-09-06 16:28] LABS: Glucose,Whole Blood 411 mg/dL (70-110)
[2023-09-06] MEDS: DRONEDARONE 400 MG TAB PO SCH (17:30)
--- NOTE | 2023-09-06 20:47 | P.PN ---
Subjective Patient is a 57-year-old female with a past medical history of CAD with stenting, chronic diastolic heart failure, hypertension, hyperlipidemia, chronic atrial fibrillation on anticoagulation with Eliquis, type II [id number] ependent diabetes mellitus, chronic venous stasis dermatitis with chronic bilateral lower extremity edema, severe obstructive sleep apnea CPAP dependent, and chronic hypoxic respiratory failure secondary to advanced COPD home oxygen dependent 3 L presented to the ER for worsening shortness of breath. Patient was only discharged on hospital day ago, patient stated she was all right till today when in the afternoon started noticing that her breathing was getting worse. Patient was complaining of her heart beating fast and her chest feeling tight. Patient complains of shortness of breath at rest and on exertion as well. Patient denies any fever or chills. There is no complaint of orthopnea or PND. Because of these worsening symptoms, patient called EMS and she was brought to the ER Initial lab work done in the ER showed WBC 11.1, hemoglobin 12.2, platelet count 271, sodium 137, potassium 4.3, BUN 27, creatinine 0.61, lactate 1.4, troponin 0.012, proBNP 5490 EKG done in the ER showed heart rate of 114, QRS 81, irregular rate and rhythm, no ST segment elevation or depression seen, no T-wave inversions seen. Chest x-ray done in the ER moderate to severe CHF Patient admitted to internal medicine service 08/25. Patient seen and examined. Patient was in respiratory distress overnight, continues to be in A-fib with rapid ventricular rate, was started on amiodarone drip. Currently on BiPAP with FiO2 60% 08/27/2023 Patient today is awake and alert at baseline She still complaining from significant dyspnea, currently on BiPAP She remains on IV Lasix 40 mg twice daily, as well as her Eliquis and prednisone burst taper Amiodarone drip switched to oral amiodarone 400 mg today. 08/28/2023 patient still dyspneic start requiring BiPAP. She Answers Questions Approp riately but Looks Tired She Denies Chest Pain or Abdominal Pain. Blood Pressure Is Borderline and This Morning Was 80/40, Blood Pressure Pills Were Held Patient with No Fever Still Tachypneic but Not Tachycardic Her Creatinine Jumped up 1.0 up to 2.4 Therefore We Switch Her IV Lasix to Oral and Hold Her Lisinopril and Other Blood Pressure Normal This Morning. We'll Keep Monitoring Blood Pressure and Creatinine for Now. We'll Send for Urine Analysis Bladder Scan Is 0 Currently she is on Eliquis 5 mg prednisone 30 mg 08/29/2023 Patient remains on BiPAP, today it is somewhat lower lethargic and harder to wake up. Mostly this is related to her metabolic encephalopathy as she has si gnificantly worsening renal function yesterday up to 2.4 which might be contributing besides other medical problems affecting her mentation. Patient is afebrile, Blood pressure slightly better 90/57, she is still tachypneic with a rate around 25, Labs from today are pending She has renal ultrasound which I reviewed myself showing no hydronephrosis but incidental finding of cholelithiasis 5.5 x 6 2.7 x 1.8 cm. She remains on Eliquis 5 mg, Lasix Cardizem and Aldactone held Continue with metoprolol 100 mg and midodrine 5 mg was added Also she is on amiodarone. 08/30/2023 Patient on BiPAP this morning, she is more awake and alert, she follows commands and answers questions appropriately She still have some difficulty breathing and BiPAP is helping her. She denies abdominal pain or chest pain. Blood pressure improved currently 108/75, patient is tachypneic with a breathing rate 26-27 Chest x-ray showing bibasilar infiltrates Creatinine was 2.8 Patient remains on IV Lasix and prednisone 30 mg and Eliquis 5 mg Aldactone and lisinopril are placed on hold. Midodrine is currently 5 mg 3 times per day. I am resuming the care of the patient 09/04/2023 Patient fully awake and oriented today She is an 4 L/min of oxygen via nasal cannula, gradually and slowly coming down She still have prolonged expiration and mild basilar crepitation She has a Wolff. No leg edema Abdomen soft and appetite is good Patient hemodynamically stable Her labs look stable and creatinine improved significantly down to 0.8 Lisinopril and Cardizem remains on hold, currently she is on amiodarone 200 mg twice daily, metoprolol increased to 150 mg twice daily and Diamox and Farxiga. Also she is getting midodrine 5 mg 3 times daily. She is on Eliquis 5 mg and Lasix is switched to 40 mg twice daily She is on the steroids 40 mg every 8 hours 09/05/2023 Patient sitting up in chair asking when she can be discharged Explained the patient she is still on 40 L/min of oxygen via nasal high flow cannula and she is agreeable to stay now No chest pain no other new complaint She is still on oral Lasix 40 mg twice daily and potassium chloride 20 mill equivalent Also she is on Solu-Medrol 40 mg 09/06/2023 Patient is currently on IV Solu-Medrol 40 mg and oral Lasix Her breathing treatment continue to improve and currently she is on 12 L/min compared to 40 L yesterday. No chest pain No other complaint She is still on Eliquis 5 mg Objective - Vital Signs Vital signs: Vital Signs Temp 97.9 F 09/06/23 08:20 Pulse 105 H 09/06/23 11:47 Resp 18 09/06/23 08:20 BP 134/79 09/06/23 08:20 Pulse Ox 98 09/06/23 11:48 FiO2 40 09/06/23 08:00 Intake & Output 09/05/23 09/06/23 09/06/23 18:59 06:59 18:59 Intake Total 360 0 240 Output Total 400 300 Balance -40 -300 240 Weight 120.7 kg Intake: Oral 360 0 240 Output: Urine 400 300 Other: Voiding Method Bedside Commode Bedside Commode # Voids 1 # Bowel Movements 1 - Exam --GENERAL: The patient is alert and awake but drowsy. On BiPAP machine. Obese . HEENT: Pupils are round and equally reacting to light. EOMI. No scleral icterus. No conjunctival pallor. Normocephalic, atraumatic. No pharyngeal erythema. No thyromegaly. CARDIOVASCULAR: S1 and S2 present. No murmurs, rubs, or gallops. PU-LMONARY: Chest is clear to auscultation, no wheezing , no crackles. decreased air entry on both sides. ABDOMEN: Soft, nontender, nondistended, normoactive bowel sounds. No palpable organomegaly. MUSCULOSKELETAL: No joint swelling or deformity. EXTREMITIES: No cyanosis, clubbing, or pedal edema. NEUROLOGICAL: Gross neurological examination did not reveal any focal deficits. SKIN: No rashes. no petechiae. - Labs CBC & Chem 7: 09/04/23 09:36 04/11/24 09:38 Labs: Abnormal Lab Results - Last 24 Hours (Table) 09/05/23 09/05/23 09/06/23 Range/Units 16:42 19:58 06:07 Chloride (98-107) mmol/L Carbon Dioxide (22-30) mmol/L BUN (7-17) mg/dL Glucose (74-99) mg/dL POC Glucose (mg/dL) 187 H 196 H 208 H (70-110) mg/dL 09/06/23 09/06/23 Range/Units 09:38 11:36 Chloride 95 L (98-107) mmol/L Carbon Dioxide 33 H (22-30) mmol/L BUN 48 H (7-17) mg/dL Glucose 218 H (74-99) mg/dL POC Glucose (mg/dL) 214 H (70-110) mg/dL Assessment and Plan Assessment: Acute on chronic hypoxic respiratory failure Acute on chronic diastolic heart failure exacerbation Acute COPD exacerbation, with chronic oxygen dependency, baseline 3-4 L at all times acute kidney injury Metabolic encephalopathy Cholelithiasis, asymptomatic Severe obstructive sleep apnea. Atrial fibrillation with RVR in pt with Chronic atrial fibrillation on anticoagulation with Eliquis CAD with previous stent Hypertension, currently borderline hypertensive Hyperlipidemia Bilateral lower extremity edema with venous stasis dermatitis. Type II obr-[id number] diabetes mellitus with hemoglobin A1c of 7%. Morbid obesity with BMI of 50.8 kg/m Plan: Continue with metoprolol and amiodarone and monitor blood pressure. Continue with Eliquis Continue with oral Lasix and Diamox Continue with IV Solu-Medrol 40 mg consult nephrology Cardiology and pulmonary team consult Labs and medication were reviewed.. Continue same treatment. Continue with symptomatic treatment. Resume home medication. Monitor labs and vitals. DVT and GI prophylaxis. Further recommendations as per clinical course of the patient DVT prophylaxis: Eliquis GI Prophylaxis: Pepcid PT/OT: Pending Prognosis is guarded
[2023-09-06 21:35] LABS: Glucose,Whole Blood 265 mg/dL (70-110)
[2023-09-07 06:10] LABS: Glucose,Whole Blood 209 mg/dL (70-110)
--- NOTE | 2023-09-07 11:02 | P.PN ---
Subjective Patient is seen in follow-up for acute kidney injury. Renal function near baseline. On po Lasix. Admits to good urine output. Wolff catheter removed September 04, 2023. No vomiting or diarrhea. No active complaints. Now on 8 L nasal cannula. Vital signs are stable. General: No acute distress. HEENT: Head exam is unremarkable. On high flow nasal cannula. LUNGS: Wheezing at bases. HEART: Rate and Rhythm are regular. ABDOMEN: Obese, nontender. EXTREMITITES: Trace edema. Objective - Vital Signs Vital signs: Vital Signs Temp 97.7 F 09/07/23 04:00 Pulse 110 H 09/07/23 08:29 Resp 22 09/07/23 04:00 BP 120/86 09/07/23 04:00 Pulse Ox 93 L 09/07/23 10:11 FiO2 40 09/07/23 03:48 Intake & Output 09/06/23 09/07/23 09/07/23 18:59 06:59 18:59 Intake Total 600 0 240 Balance 600 0 240 Weight 120.7 kg 120.5 kg Intake: Oral 600 0 240 Other: Voiding Method Bedside Commode # Voids 1 2 # Bowel Movements 1 - Labs CBC & Chem 7: 09/04/23 09:36 09/06/23 09:38 Labs: Abnormal Lab Results - Last 24 Hours (Table) 09/06/23 09/06/23 09/06/23 Range/Units 09:38 11:36 16:26 Chloride 95 L (98-107) mmol/L Carbon Dioxide 33 H (22-30) mmol/L BUN 48 H (7-17) mg/dL Glucose 218 H (74-99) mg/dL POC Glucose (mg/dL) 214 H 386 H (70-110) mg/dL 09/06/23 09/06/23 09/07/23 Range/Units 16:27 21:33 06:08 Chloride (98-107) mmol/L Carbon Dioxide (22-30) mmol/L BUN (7-17) mg/dL Glucose (74-99) mg/dL POC Glucose (mg/dL) 411 H 265 H 209 H (70-110) mg/dL Assessment and Plan Plan: Assessment: 1. Acute kidney injury secondary to ATN secondary to cardiorenal syndrome. Improved. UA with 1+ protein and no blood. No hydronephrosis noted on kidney ultrasound. 2. Acute on chronic diastolic CHF. 3. Volume overload. Improved with diuresis. 4. Acute on chronic hypoxic respiratory failure secondary to COPD exacerbation and fluid overload. 5. Mild hypokalemia from diuresis. Replaced. Better. 6. Morbid obesity. 7. Diabetes mellitus. Plan: Maintain oral Lasix with potassium supplementation. Maintain Farxiga. Maintain low-salt diet and fluid restriction. Avoid nephrotoxins. Continue to monitor renal function and urine output. Repeat BMP and magnesium level 2 to 3 days postdischarge. Follow-up outpatient in 1 week. Also advised to monitor her weight closely at home. To notify physician if develops worsening edema or gains more than 3 pounds in 1 week duration.
[2023-09-07 11:22] LABS: Glucose,Whole Blood 222 mg/dL (70-110)
[2023-09-07] MEDS: methylPREDNISolone SOD SUCCI 40 MG/ML 1 ML VIAL IV SCH (12:35)
--- NOTE | 2023-09-07 13:24 | P.PN ---
Subjective Progress Note Date: 09/07/23 HISTORY OF PRESENT ILLNESS: Patient examined this morning at the bedside. Patient currently denies chest pain or pressure. She reports shortness of breath this morning. She remains on BiPAP at the time of examination. Patient is receiving IV diuretics. She also reports a frequent cough. Telemetry reveals atrial fibrillation with heart rate in the 80s. She is currently on IV amiodarone 08/28/2023 Patient examined this morning at the bedside. Patient denies chest pain or pressure. She reports mild shortness of breath. Her main complaint today is lower back discomfort. Patient's creatinine increased to 2.46 from 1.0 yesterday. Potassium 5.5. Patient's blood pressures have been on the low side with a systolic between 8090. 08/29/2023 Patient examined this morning at the bedside. Patient is lethargic this morning upon examination and requires multiple attempts at verbal arousal. Patient remains on BiPAP. Patient's creatinine today is worsened at 2.8. Pressures remain on the low side with a systolic around 90. 08/30/2023 Patient examined this morning at the bedside. Patient currently denies chest pain or pressure. She remains on BiPAP this morning. Patient has been started on IV Lasix. Creatinine 1.56 today. Patient has urinated over 3 L. Vital signs are stable. Blood pressure 130/81. 08/31/2023 Patient examined this morning at the bedside. Patient remains on BiPAP. She denies chest pain or pressure. She reports improvement in her shortness of breath. She remains on IV Lasix. Urine output over the last 24 hours is 4 L. Creatinine today is 1.0. Blood pressures have improved with a systolic greater than 100. 09/01/2023 Patient examined this morning at the bedside. Patient is much more awake today. Patient's daughter is at the bedside. Patient denies chest pain or pressure. She remains on BiPAP at the time of examination. She currently denies shortness of breath. She remains on IV diuretics. BNP yesterday 2460. Acute kidney injury has resolved. Creatinine yesterday 1.0. She remains in atrial fibrillation with a heart rate in the [id number]. Blood pressure has improved with a recent reading of 116/80. 09/02/2023 Patient examined this morning the bedside. Patient denies chest pain or pressure. She currently denies shortness of breath. She remains on BiPAP. Apparently yesterday the patient tolerated nasal cannula for a short period of t lashonda. However with any movement or turning in bed she desatted into the 80s. Blood pressure stable. Telemetry reveals atrial fibrillation. 09/02 Patient states that her breathing is stable right now. But she is on Airvo with pulse ox of 94%. Heart rate is 89, blood pressure 114/73. Repeat blood work reveals WBC 13.2, hemoglobin 9.7. Sodium 140, potassium 3.6, BUN 35 creatinine 0.84. Patient is maintained on IV Lasix 40 mg every 12 hours managed by nephrology. 09/03 Patient remains on Airvo with pulse ox of 93%. Blood pressure 129/81, heart rate in the 90s. Nephrology has transition IV Lasix to oral 40 mg twice daily. Repeat blood work reveals hemoglobin 11.3. Sodium 138, potassium 4, BUN 36 creatinine 0.8. 09/04 Patient believes her breathing is slowly improving. Lung sounds are improving. Heart rate is 100, blood pressure 104/76, pulse ox 94%. Yesterday, we increased metoprolol tartrate to 150 mg twice daily and will continue this dosing. Patient is also on amiodarone 200 mg twice daily. 09/05 Patient's heart rate is running 105-111. Yesterday, we continued her on the metoprolol tartrate 150 mg twice daily and amiodarone 200 mg twice daily. Blood pressure is 124/90. Repeat blood work reveals sodium 137, potassium 4.4, BUN 48 creatinine 0.91. 09/06 Patient is now off air Vo. She is on 10 L nasal cannula with pulse ox of 93%, heart rate is 810006, blood pressure 120/86. PHYSICAL EXAM: VITAL SIGNS: Reviewed. GENERAL: Well-developed in no acute distress. NECK: Supple. No JVD or thyromegaly LUNGS: Respirations even and unlabored. Lungs diminished bilaterally HEART: Regular rate and rhythm. S1 and S2 heard. EXTREMITIES: Normal range of motion. No clubbing or cyanosis. Peripheral pulses intact. 1-2+ bilateral lower extremity edema ASSESSMENT: Shortness of breath Acute on chronic hypoxic respiratory failure requiring BiPAP Acute COPD exacerbation Acute on chronic heart failure with preserved EF, 50 to 55% Persistent atrial fibrillation Coronary artery disease with previous PCI, details unknown Hypertension Hyperlipidemia Former nicotine dependence Morbid obesity Acute kidney injury likely secondary to hypotension along with diuresis, resolved PLAN: Continue current dose of metoprolol tartrate 150 mg twice daily Continue Multaq 400 mg twice daily Plan for electrocardioversion in about 1 to 2 weeks in the postop setting once patient's respiratory status has been stabilized. This has been discussed with Dr. Menezes. Continue oral diuretics, Lasix 40 mg PO BID per nephrology Wean oxygen as tolerated Further recommendations pending patient course Nurse practitioner note has been reviewed by physician. Signing provider agrees with the documented findings, assessment, and plan of care documented by [employer] as a scribe. Objective - Vital Signs Vital signs: Vital Signs Temp 97.7 F 09/07/23 04:00 Pulse 110 H 09/07/23 08:29 Resp 22 09/07/23 04:00 BP 120/86 09/07/23 04:00 Pulse Ox 92 L 09/07/23 08:19 FiO2 40 09/07/23 03:48 Intake & Output 09/06/23 09/07/23 09/07/23 18:59 06:59 18:59 Intake Total 600 0 240 Balance 600 0 240 Weight 120.7 kg 120.5 kg Intake: Oral 600 0 240 Other: Voiding Method Bedside Commode # Voids 1 2 # Bowel Movements 1 - Labs CBC & Chem 7: 09/04/23 09:36 09/06/23 09:38 Labs: Abnormal Lab Results - Last 24 Hours (Table) 09/06/23 09/06/23 09/06/23 Range/Units 09:38 11:36 16:26 Chloride 95 L (98-107) mmol/L Carbon Dioxide 33 H (22-30) mmol/L BUN 48 H (7-17) mg/dL Glucose 218 H (74-99) mg/dL POC Glucose (mg/dL) 214 H 386 H (70-110) mg/dL 09/06/23 09/06/23 09/07/23 Range/Units 16:27 21:33 06:08 Chloride (98-107) mmol/L Carbon Dioxide (22-30) mmol/L BUN (7-17) mg/dL Glucose (74-99) mg/dL POC Glucose (mg/dL) 411 H 265 H 209 H (70-110) mg/dL
--- NOTE | 2023-09-07 14:32 | P.PN ---
Subjective Progress Note Date: 09/07/23 This is a 57-year-old female familiar to our service, patient has been recently admitted and discharged, we saw her on consultation for her COPD and obesity hypoventilation syndrome, with chronic hypoxic respiratory failure, patient however has been recently admitted with atrial fibrillation RVR, and pulmonary edema related to her atrial fibrillation with RVR. She was just discharged 3 days ago by cardiology, patient was readmitted this time with a similar presentation mostly shortness of breath, atrial fibrillation with RVR, and requiring BiPAP treatment upon admission mostly because of her hypoxia and hypercapnia. Patient is morbidly obese, and I saw her again today in the morning for her shortness of breath. Patient was noted to be on BiPAP, 14/6/60%, and her O2 saturation was in the 90s. Patient was hemodynamically stable, her rate seems to be poorly controlled, and cardiology is to address her cardiac arrhythmia/atrial fibrillation with RVR looking back at this patient's history, she is 57 years old with known history of coronary artery disease and stenting, chronic diastolic congestive heart failure, hypertension, chronic atrial fibrillation on Eliquis, non-insulin dependent diabetes, history of chronic venous stasis changes, history of COPD, obstructive sleep apnea syndrom e, obesity hypoventilation syndrome, and again as noted above patient had multiple admissions with similar presentation to the hospital Chest x-ray on this admission clearly showed evidence of moderate to severe congestive heart failure On today's evaluation of 09/03/2023, I am seeing this patient for a follow-up. The patient was on BiPAP at a pressure of 16/6 with an FiO2 of 50% and the patient was transition to Airvo at 40 L with an FiO2 of 50%. Most recent chest x-ray from today still showing evidence of cardiomegaly and perihilar and bibasilar pulm infiltrates unchanged compared to yesterday and this is consistent with CHF and volume overload. The patient continues to be on diuretics with IV Lasix. The patient has been achieving a negative fluid balance while being on Lasix. She is receiving Lasix 40 mg IV every 12 hours and she is also on Diamox to 50 mg p.o. daily. Her current cardiac rhythm is A- fib. The patient remains on amiodarone at 1 mg p.o. twice a day metoprolol 100 mg p.o. twice daily the patient is also on anticoagulation with Eliquis 5 mg p.o. twice a day. She remains on bronchodilators patient was found to be bronchospastic and wheezy patient was started on steroids today. The white cell count 15.2 with a hemoglobin 9.7 and a platelet count of 366. BUN is at 35 with a creatinine of 0.8. Serum bicarb is at 38 and a sodium levels at 140. Procalcitonin level at time of admission was 0.19. Awake and alert and communicating. No signs of encephalopathy at this point in time. On today's evaluation of 09/04/2023, I am seeing the patient for a follow-up. The patient this morning, and comfortable and the patient is on Airvo 40 L with an FiO2 of 50%. Overnight, she spent on a BiPAP at a pressure of 16/6 with an FiO2 of 50%. She remains on IV Lasix and this was switched to oral Lasix by nephrology. The fluid balance has been negative over the past 24 hours in the order of 1 L. She is producing adequate amount of urine output. BUN is at 36 w ith a creatinine of 0.8 and a serum bicarb is at 35. Patient also has a WBC of 11.3 with a hemoglobin of 11.3 and a platelet count of 337. No altered mentation. No signs of any hypercapnic respiratory failure or CO2 narcosis. The patient remains on DuoNeb updrafts. The patient is on IV Solu-Medrol 40 mg every 6 hours. The patient on anticoagulation with Eliquis 5 mg p.o. twice a day. The patient is also on metoprolol 150 mg twice a day. Rest of the medication remains unchanged. On 09/05/2023, the patient remains on Airvo at 40 L with an FiO2 of 50%. Her current pulse ox is in the order of 94 to 96%. No change in her overall condition. Remains on Lasix and this has been switched to oral Lasix 40 mg p.o. twice a day and combination with Diamox. She remains on bronchodilators. She remains on steroids. Labs from today show a BUN of 42 creatinine of 0.9 and a sodium level is 138. Fluid balance over the past 24 hours is not accurately measured it seems that the patient was not in the "fluid balance. The most recent chest x-ray was done on 09/03/2023 and the patient was found to have coarse perihilar and bibasilar pulmonary fibrosis) essentially unchanged. This is most consistent with CHF. Otherwise, no other significant events over the past 24 hours. IV fluids are currently at KVO. The patient remains on Lopressor 150 mg p.o. twice a day. The patient remains on anticoagulation with Eliquis 5 mg p.o. twice a day. On 09/06/2023, the patient is feeling well. She is on Airvo and she is at 35 L with an FiO2 of 35%. I am going to transition this patient to nasal cannula high flow at 15 L. Will gradually going to wean down FiO2 as tolerated to maintain a saturation above 90%. For the most part, the patient is doing well. She is producing adequate amount of urine output. Less bronchospastic and wheezy. Remains on bronchodilators. Remains on IV Solu-Medrol. Currently she is on Lasix 40 mg p.o. twice a day. She is also on anticoagulants 5 mg p.o. twice a day. She is utilizing the incentive spirometer. BUN is at 48 with a creatinine of 0.9 and sodium levels of 137. No other significant events otherwise for now. No signs of any altered mentation. Clinically stable. On today's evaluation of 09/07/2023, the patient is currently down to 10 L of ox ygen by nasal cannula. I was able to cut her down to 8 L and wean the process of weaning this patient down further. She is doing well. No specific complaints. Airvo system has been discontinued. No new labs are available from today. She remains on bronchodilators and steroids. She is on oral Lasix 40 mg p.o. twice a day she is also on Diamox to 50 mg p.o. daily patient remains on anticoagulation with Eliquis 5 mg twice a day. Sitting up in a chair calm and comfortable remains on IV Solu-Medrol 40 mg every 6 hours. Objective - Vital Signs Vital signs: Vital Signs Temp 97.7 F 09/07/23 04:00 Pulse 110 H 09/07/23 08:29 Resp 22 09/07/23 04:00 BP 120/86 09/07/23 04:00 Pulse Ox 93 L 09/07/23 10:11 FiO2 40 09/07/23 03:48 Intake & Output 09/06/23 09/07/23 09/07/23 18:59 06:59 18:59 Intake Total 600 0 240 Balance 600 0 240 Weight 120.7 kg 120.5 kg Intake: Oral 600 0 240 Other: Voiding Method Bedside Commode # Voids 1 2 # Bowel Movements 1 - Exam No acute distress, the patient is currently on 8 L of oxygen by nasal cannula. HEENT examination is grossly unremarkable. Neck supple. Full range of motion. No adenopathy thyromegaly or neck vein distention. Cardiovascular examination reveals irregular rhythm rate. S1-S2 normal. No S3 or S4. A systolic murmur is noted. . Heart sounds are distant. Lungs reveal expiratory wheezes and rhonchi. Breath sounds are equal. No crackles. Abdomen, soft, with bowel sounds. No masses or tenderness. Extremities are intact. No cyanosis clubbing and there is +1 pitting edema lower extremities bilaterally. Skin is without rash or lesion. Neurologic examination is brief but nonfocal. - Labs CBC & Chem 7: 09/04/23 09:36 09/06/23 09:38 Labs: Abnormal Lab Results - Last 24 Hours (Table) 09/06/23 09/06/23 09/06/23 Range/Units 11:36 16:26 16:27 POC Glucose (mg/dL) 214 H 386 H 411 H (70-110) mg/dL 09/06/23 09/07/23 Range/Units 21:33 06:08 POC Glucose (mg/dL) 265 H 209 H (70-110) mg/dL Assessment and Plan Plan: Acute hypoxic respiratory failure, multifactorial. This is related to her COPD exacerbation and fluid overload and the patient's oxygenation gradually improving. The patient is currently down to 8 L of oxygen by nasal cannula and she is improving and she is less short of breath. Acute on chronic dyspnea likely secondary to fluid overload and a component of C OPD/asthma exacerbation, and the patient continues to have some ongoing shortness of breath, overall improving Chronic hypoxic/hypercapnic respiratory failure, please refer to previous blood gas done on this patient. Severe obstructive sleep apnea with an AHI of 41 and the patient has been titrated to a CPAP pressure of 11 cm of water Previous fall and head trauma with fracture of facial bones with areas of skin bruising. Childhood asthma and the patient reports that she was intubated in the past on multiple occasions as a child in [facility]. Body mass index of above 50 Prior history of significant tobacco use. Multiple hospitalizations most recent of which was attributed to the right lower extremity cellulitis, currently inactive MRSA in the sputum cultures on 07/03/2023 History of atrial fibrillation. Rate is controlled and the patient is on long- term anticoagulation with Eliquis. The rate is controlled at this point in time History of hyperlipidemia. History of hypertension. History of coronary artery disease, with previous PCI/stent placement. History of myocardial infarction. Chronic anxiety/depression. Plan Titrate FiO2 gradually. Currently on 8 L. Continue same treatment as the patient continues to show signs of improvement. BiPAP overnight. Attempt to wean down FiO2 as tolerated to maintain saturation above 90% Continue oral Lasix, 40 mg p.o. twice a day monitor the fluid balance Continue Diamox 250 mg p.o. daily Monitor electrolytes and watch for any significant metabolic alkalosis Monitor fluid balance and achieve a negative fluid balance over the next 24 hours Continue bronchodilators continue IV Solu-Medrol regarding ongoing bronchospasm and wheezing, dose of 40 mg every 6 hours, will transition the patient to a prednisone burst taper at time of discharge. Continue metoprolol and amiodarone and anticoagulation with Eliquis, the patient is on metoprolol 150 mg p.o. twice a day Will continue to follow make further recommendations based on her progress.
[2023-09-07 16:31] LABS: Glucose,Whole Blood 245 mg/dL (70-110)
--- NOTE | 2023-09-07 17:59 | P.PN ---
Subjective Patient is a 57-year-old female with a past medical history of CAD with stenting, chronic diastolic heart failure, hypertension, hyperlipidemia, chronic atrial fibrillation on anticoagulation with Eliquis, type II [id number] ependent diabetes mellitus, chronic venous stasis dermatitis with chronic bilateral lower extremity edema, severe obstructive sleep apnea CPAP dependent, and chronic hypoxic respiratory failure secondary to advanced COPD home oxygen dependent 3 L presented to the ER for worsening shortness of breath. Patient was only discharged on hospital day ago, patient stated she was all right till today when in the afternoon started noticing that her breathing was getting worse. Patient was complaining of her heart beating fast and her chest feeling tight. Patient complains of shortness of breath at rest and on exertion as well. Patient denies any fever or chills. There is no complaint of orthopnea or PND. Because of these worsening symptoms, patient called EMS and she was brought to the ER Initial lab work done in the ER showed WBC 11.1, hemoglobin 12.2, platelet count 271, sodium 137, potassium 4.3, BUN 27, creatinine 0.61, lactate 1.4, troponin 0.012, proBNP 5490 EKG done in the ER showed heart rate of 114, QRS 81, irregular rate and rhythm, no ST segment elevation or depression seen, no T-wave inversions seen. Chest x-ray done in the ER moderate to severe CHF Patient admitted to internal medicine service 08/25. Patient seen and examined. Patient was in respiratory distress overnight, continues to be in A-fib with rapid ventricular rate, was started on amiodarone drip. Currently on BiPAP with FiO2 60% 08/27/2023 Patient today is awake and alert at baseline She still complaining from significant dyspnea, currently on BiPAP She remains on IV Lasix 40 mg twice daily, as well as her Eliquis and prednisone burst taper Amiodarone drip switched to oral amiodarone 400 mg today. 08/28/2023 patient still dyspneic start requiring BiPAP. She Answers Questions Approp riately but Looks Tired She Denies Chest Pain or Abdominal Pain. Blood Pressure Is Borderline and This Morning Was 80/40, Blood Pressure Pills Were Held Patient with No Fever Still Tachypneic but Not Tachycardic Her Creatinine Jumped up 1.0 up to 2.4 Therefore We Switch Her IV Lasix to Oral and Hold Her Lisinopril and Other Blood Pressure Normal This Morning. We'll Keep Monitoring Blood Pressure and Creatinine for Now. We'll Send for Urine Analysis Bladder Scan Is 0 Currently she is on Eliquis 5 mg prednisone 30 mg 08/29/2023 Patient remains on BiPAP, today it is somewhat lower lethargic and harder to wake up. Mostly this is related to her metabolic encephalopathy as she has si gnificantly worsening renal function yesterday up to 2.4 which might be contributing besides other medical problems affecting her mentation. Patient is afebrile, Blood pressure slightly better 90/57, she is still tachypneic with a rate around 25, Labs from today are pending She has renal ultrasound which I reviewed myself showing no hydronephrosis but incidental finding of cholelithiasis 5.5 x 6 2.7 x 1.8 cm. She remains on Eliquis 5 mg, Lasix Cardizem and Aldactone held Continue with metoprolol 100 mg and midodrine 5 mg was added Also she is on amiodarone. 08/30/2023 Patient on BiPAP this morning, she is more awake and alert, she follows commands and answers questions appropriately She still have some difficulty breathing and BiPAP is helping her. She denies abdominal pain or chest pain. Blood pressure improved currently 108/75, patient is tachypneic with a breathing rate 26-27 Chest x-ray showing bibasilar infiltrates Creatinine was 2.8 Patient remains on IV Lasix and prednisone 30 mg and Eliquis 5 mg Aldactone and lisinopril are placed on hold. Midodrine is currently 5 mg 3 times per day. I am resuming the care of the patient 09/04/2023 Patient fully awake and oriented today She is an 4 L/min of oxygen via nasal cannula, gradually and slowly coming down She still have prolonged expiration and mild basilar crepitation She has a Wolff. No leg edema Abdomen soft and appetite is good Patient hemodynamically stable Her labs look stable and creatinine improved significantly down to 0.8 Lisinopril and Cardizem remains on hold, currently she is on amiodarone 200 mg twice daily, metoprolol increased to 150 mg twice daily and Diamox and Farxiga. Also she is getting midodrine 5 mg 3 times daily. She is on Eliquis 5 mg and Lasix is switched to 40 mg twice daily She is on the steroids 40 mg every 8 hours 09/05/2023 Patient sitting up in chair asking when she can be discharged Explained the patient she is still on 40 L/min of oxygen via nasal high flow cannula and she is agreeable to stay now No chest pain no other new complaint She is still on oral Lasix 40 mg twice daily and potassium chloride 20 mill equivalent Also she is on Solu-Medrol 40 mg 09/06/2023 Patient is currently on IV Solu-Medrol 40 mg and oral Lasix Her breathing treatment continue to improve and currently she is on 12 L/min compared to 40 L yesterday. No chest pain No other complaint She is still on Eliquis 5 mg 09/07/2023 Breathing is improving Oxygen requirement 8 L/min morning morning, down to 6 L in the evening. Continue on IV Solu-Medrol 40 mg, oral Lasix Nystatin for oral thrush Objective - Vital Signs Vital signs: Vital Signs Temp 97.6 F 09/07/23 10:05 Pulse 100 09/07/23 12:03 Resp 22 09/07/23 10:05 BP 148/115 09/07/23 10:05 Pulse Ox 91 L 09/07/23 12:34 FiO2 40 09/07/23 03:48 Intake & Output 09/06/23 09/07/23 09/07/23 18:59 06:59 18:59 Intake Total 600 0 720 Balance 600 0 720 Weight 120.7 kg 120.5 kg Intake: Oral 600 0 720 Other: Voiding Method Bedside Commode Bedside Commode # Voids 1 2 # Bowel Movements 1 - Exam --GENERAL: The patient is alert and awake but drowsy. On BiPAP machine. Obese . HEENT: Pupils are round and equally reacting to light. EOMI. No scleral icterus. No conjunctival pallor. Normocephalic, atraumatic. No pharyngeal erythema. No thyromegaly. CARDIOVASCULAR: S1 and S2 present. No murmurs, rubs, or gallops. PU-LMONARY: Chest is clear to auscultation, no wheezing , no crackles. decreased air entry on both sides. ABDOMEN: Soft, nontender, nondistended, normoactive bowel sounds. No palpable organomegaly. MUSCULOSKELETAL: No joint swelling or deformity. EXTREMITIES: No cyanosis, clubbing, or pedal edema. NEUROLOGICAL: Gross neurological examination did not reveal any focal deficits. SKIN: No rashes. no petechiae. - Labs CBC & Chem 7: 09/04/23 09:36 09/06/23 09:38 Labs: Abnormal Lab Results - Last 24 Hours (Table) 09/06/23 09/06/23 09/06/23 Range/Units 16:26 16:27 21:33 POC Glucose (mg/dL) 386 H 411 H 265 H (70-110) mg/dL 09/07/23 09/07/23 Range/Units 06:08 11:20 POC Glucose (mg/dL) 209 H 222 H (70-110) mg/dL Assessment and Plan Assessment: Acute on chronic hypoxic respiratory failure Acute on chronic diastolic heart failure exacerbation Acute COPD exacerbation, with chronic oxygen dependency, baseline 3-4 L at all times acute kidney injury Metabolic encephalopathy Cholelithiasis, asymptomatic Severe obstructive sleep apnea. Atrial fibrillation with RVR in pt with Chronic atrial fibrillation on anticoagulation with Eliquis CAD with previous stent Hypertension, currently borderline hypertensive Hyperlipidemia Bilateral lower extremity edema with venous stasis dermatitis. Type II [id number] diabetes mellitus with hemoglobin A1c of 7%. Morbid obesity with BMI of 50.8 kg/m Plan: Continue with metoprolol and amiodarone and monitor blood pressure. Continue with Eliquis Continue with oral Lasix and Diamox Continue with IV Solu-Medrol 40 mg consult nephrology Cardiology and pulmonary team consult Labs and medication were reviewed.. Continue same treatment. Continue with symptomatic treatment. Resume home medication. Monitor labs and vitals. DVT and GI prophylaxis. Further recommendations as per clinical course of the patient DVT prophylaxis: Eliquis GI Prophylaxis: Pepcid PT/OT: Pending Prognosis is guarded
[2023-09-07] MEDS: NYSTATIN 100,000 UNIT/ML SUSP 500,000 UNIT/5 ML CUP PO SCH (18:02)
[2023-09-07 20:36] LABS: Glucose,Whole Blood 280 mg/dL (70-110)
[2023-09-08 05:56] LABS: Glucose,Whole Blood 213 mg/dL (70-110)
[2023-09-08 09:21] LABS: Anisocytosis Slight; Basophils % (A) 0 %; Eosinophils % (A) 0 %; HGB 11.6 gm/dL (11.4-16.0); Hypochromasia Marked; Lymphocytes # (A) 0.5 k/uL (1.0-4.8); Lymphocytes % (A) 4 %; MCHC 29.1 g/dL (31.0-37.0); Macrocytosis Slight; Mean Platelet Volume 9.6; Monocytes # (A) 0.4 k/uL (0-1.0); Monocytes % (A) 3 %; Neutrophils # (A) 10.4 k/uL (1.3-7.7); Neutrophils % (A) 92 %; Platelet Count 266 k/uL (150-450); RBC 4.31 m/uL (3.80-5.40); RDW 18.7 % (11.5-15.5); WBC 11.3 k/uL (3.8-10.6)
[2023-09-08 09:40] LABS: African American GFR (CKD) 74 (>60 ml/min/1.73 sqM); Anion Gap 7 mmol/L; Blood Urea Nitrogen 50 mg/dL (7-17); Calcium 9.5 mg/dL (8.4-10.2); Carbon Dioxide 36 mmol/L (22-30); Chloride 95 mmol/L (98-107); Glucose 269 mg/dL (74-99); Magnesium 1.9 mg/dL (1.6-2.3); Non-African American GFR(CKD) 64 (>60 ml/min/1.73 sqM); Potassium 4.3 mmol/L (3.5-5.1); Sodium 138 mmol/L (137-145)
--- NOTE | 2023-09-08 09:53 | P.PN ---
Subjective Patient is seen in follow-up for acute kidney injury. Renal function near baseline. On po Lasix. Admits to good urine output. Wolff catheter removed September 04, 2023. No vomiting or diarrhea. No active complaints. Now on 7 L nasal cannula. Vital signs are stable. General: No acute distress. HEENT: Head exam is unremarkable. On high flow nasal cannula. LUNGS: Wheezing at bases. HEART: Rate and Rhythm are regular. ABDOMEN: Obese, nontender. EXTREMITITES: Trace edema. Objective - Vital Signs Vital signs: Vital Signs Temp 98.1 F 09/08/23 04:00 Pulse 108 H 09/08/23 08:12 Resp 23 09/08/23 04:00 BP 130/87 09/08/23 04:00 Pulse Ox 91 L 09/08/23 07:53 FiO2 40 09/08/23 04:35 Intake & Output 09/07/23 09/08/23 09/08/23 18:59 06:59 18:59 Intake Total 1440 236 Balance 1440 236 Weight 122.4 kg Intake: Oral 1440 236 Other: Voiding Method Bedside Commode Bedside Commode # Voids 1 - Labs CBC & Chem 7: 09/08/23 08:23 09/08/23 08:23 Labs: Abnormal Lab Results - Last 24 Hours (Table) 09/07/23 09/07/23 09/07/23 Range/Units 11:20 16:30 20:34 WBC (3.8-10.6) k/uL MCHC (31.0-37.0) g/dL RDW (11.5-15.5) % Neutrophils # (1.3-7.7) k/uL Lymphocytes # (1.0-4.8) k/uL Chloride (98-107) mmol/L Carbon Dioxide (22-30) mmol/L BUN (7-17) mg/dL Glucose (74-99) mg/dL POC Glucose (mg/dL) 222 H 245 H 280 H (70-110) mg/dL 09/08/23 09/08/23 09/08/23 Range/Units 05:53 08:23 08:23 WBC 11.3 H (3.8-10.6) k/uL MCHC 29.1 L (31.0-37.0) g/dL RDW 18.7 H (11.5-15.5) % Neutrophils # 10.4 H (1.3-7.7) k/uL Lymphocytes # 0.5 L (1.0-4.8) k/uL Chloride 95 L (98-107) mmol/L Carbon Dioxide 36 H (22-30) mmol/L BUN 50 H (7-17) mg/dL Glucose 269 H (74-99) mg/dL POC Glucose (mg/dL) 213 H (70-110) mg/dL Assessment and Plan Plan: Assessment: 1. Acute kidney injury secondary to ATN secondary to cardiorenal syndrome. Improved. UA with 1+ protein and no blood. No hydronephrosis noted on kidney ultrasound. 2. Acute on chronic diastolic CHF. 3. Volume overload. Improved with diuresis. 4. Acute on chronic hypoxic respiratory failure secondary to COPD exacerbation and fluid overload. 5. Mild hypokalemia from diuresis. Better. On maintenance potassium supplementation. 6. Morbid obesity. 7. Diabetes mellitus. Plan: Maintain oral Lasix with potassium supplementation. Maintain Farxiga. Maintain low-salt diet and fluid restriction. Avoid nephrotoxins. Continue to monitor renal function and urine output. Repeat BMP and magnesium level 2 to 3 days postdischarge. Follow-up outpatient in 1 week. Also advised to monitor her weight closely at home. To notify physician if develops worsening edema or gains more than 3 pounds in 1 week duration.
[2023-09-08 11:14] LABS: Glucose,Whole Blood 230 mg/dL (70-110)
--- NOTE | 2023-09-08 12:54 | P.PN ---
Subjective Is resting in bed. She is mildly short of breath at rest 7 L of oxygen now Bilateral rhonchi on examination Heart sounds are difficult to hear She is in A-fib with RVR even at rest Impression A-fib with RVR Severe lung disease Morbid obesity and pickwickian syndrome Plan Continue metoprolol with the current dose We have initiated Multaq and stopped amiodarone Once her pulmonary status stabilizes and reaches her baseline then Dr. Owens will proceed with electrical cardioversion as an outpatient No cardioversion planned at this point as an inpatient She may go to the rehab facility Objective - Vital Signs Vital signs: Vital Signs Temp 98.1 F 09/08/23 04:00 Pulse 108 H 09/08/23 08:12 Resp 23 09/08/23 04:00 BP 130/87 09/08/23 04:00 Pulse Ox 91 L 09/08/23 07:53 FiO2 40 09/08/23 04:35 Intake & Output 09/07/23 09/08/23 09/08/23 18:59 06:59 18:59 Intake Total 1440 236 Balance 1440 236 Weight 122.4 kg Intake: Oral 1440 236 Other: Voiding Method Bedside Commode Bedside Commode # Voids 1 - Labs CBC & Chem 7: 09/08/23 08:23 09/06/23 09:38 Labs: Abnormal Lab Results - Last 24 Hours (Table) 09/07/23 09/07/23 09/07/23 Range/Units 11:20 16:30 20:34 WBC (3.8-10.6) k/uL MCHC (31.0-37.0) g/dL RDW (11.5-15.5) % Neutrophils # (1.3-7.7) k/uL Lymphocytes # (1.0-4.8) k/uL POC Glucose (mg/dL) 222 H 245 H 280 H (70-110) mg/dL 09/08/23 09/08/23 Range/Units 05:53 08:23 WBC 11.3 H (3.8-10.6) k/uL MCHC 29.1 L (31.0-37.0) g/dL RDW 18.7 H (11.5-15.5) % Neutrophils # 10.4 H (1.3-7.7) k/uL Lymphocytes # 0.5 L (1.0-4.8) k/uL POC Glucose (mg/dL) 213 H (70-110) mg/dL
--- NOTE | 2023-09-08 14:43 | P.PN ---
Subjective Progress Note Date: 09/08/23 This is a 57-year-old female familiar to our service, patient has been recently admitted and discharged, we saw her on consultation for her COPD and obesity hypoventilation syndrome, with chronic hypoxic respiratory failure, patient however has been recently admitted with atrial fibrillation RVR, and pulmonary edema related to her atrial fibrillation with RVR. She was just discharged 3 days ago by cardiology, patient was readmitted this time with a similar presentation mostly shortness of breath, atrial fibrillation with RVR, and requiring BiPAP treatment upon admission mostly because of her hypoxia and hypercapnia. Patient is morbidly obese, and I saw her again today in the morning for her shortness of breath. Patient was noted to be on BiPAP, 14/6/60%, and her O2 saturation was in the 90s. Patient was hemodynamically stable, her rate seems to be poorly controlled, and cardiology is to address her cardiac arrhythmia/atrial fibrillation with RVR looking back at this patient's history, she is 57 years old with known history of coronary artery disease and stenting, chronic diastolic congestive heart failure, hypertension, chronic atrial fibrillation on Eliquis, non-insulin dependent diabetes, history of chronic venous stasis changes, history of COPD, obstructive sleep apnea syndrom e, obesity hypoventilation syndrome, and again as noted above patient had multiple admissions with similar presentation to the hospital Chest x-ray on this admission clearly showed evidence of moderate to severe congestive heart failure On today's evaluation of 09/03/2023, I am seeing this patient for a follow-up. The patient was on BiPAP at a pressure of 16/6 with an FiO2 of 50% and the patient was transition to Airvo at 40 L with an FiO2 of 50%. Most recent chest x-ray from today still showing evidence of cardiomegaly and perihilar and bibasilar pulm infiltrates unchanged compared to yesterday and this is consistent with CHF and volume overload. The patient continues to be on diuretics with IV Lasix. The patient has been achieving a negative fluid balance while being on Lasix. She is receiving Lasix 40 mg IV every 12 hours and she is also on Diamox to 50 mg p.o. daily. Her current cardiac rhythm is A- fib. The patient remains on amiodarone at 1 mg p.o. twice a day metoprolol 100 mg p.o. twice daily the patient is also on anticoagulation with Eliquis 5 mg p.o. twice a day. She remains on bronchodilators patient was found to be bronchospastic and wheezy patient was started on steroids today. The white cell count 15.2 with a hemoglobin 9.7 and a platelet count of 366. BUN is at 35 with a creatinine of 0.8. Serum bicarb is at 38 and a sodium levels at 140. Procalcitonin level at time of admission was 0.19. Awake and alert and communicating. No signs of encephalopathy at this point in time. On today's evaluation of 09/04/2023, I am seeing the patient for a follow-up. The patient this morning, and comfortable and the patient is on Airvo 40 L with an FiO2 of 50%. Overnight, she spent on a BiPAP at a pressure of 16/6 with an FiO2 of 50%. She remains on IV Lasix and this was switched to oral Lasix by nephrology. The fluid balance has been negative over the past 24 hours in the order of 1 L. She is producing adequate amount of urine output. BUN is at 36 w ith a creatinine of 0.8 and a serum bicarb is at 35. Patient also has a WBC of 11.3 with a hemoglobin of 11.3 and a platelet count of 337. No altered mentation. No signs of any hypercapnic respiratory failure or CO2 narcosis. The patient remains on DuoNeb updrafts. The patient is on IV Solu-Medrol 40 mg every 6 hours. The patient on anticoagulation with Eliquis 5 mg p.o. twice a day. The patient is also on metoprolol 150 mg twice a day. Rest of the medication remains unchanged. On 09/05/2023, the patient remains on Airvo at 40 L with an FiO2 of 50%. Her current pulse ox is in the order of 94 to 96%. No change in her overall condition. Remains on Lasix and this has been switched to oral Lasix 40 mg p.o. twice a day and combination with Diamox. She remains on bronchodilators. She remains on steroids. Labs from today show a BUN of 42 creatinine of 0.9 and a sodium level is 138. Fluid balance over the past 24 hours is not accurately measured it seems that the patient was not in the "fluid balance. The most recent chest x-ray was done on 09/03/2023 and the patient was found to have coarse perihilar and bibasilar pulmonary fibrosis) essentially unchanged. This is most consistent with CHF. Otherwise, no other significant events over the past 24 hours. IV fluids are currently at KVO. The patient remains on Lopressor 150 mg p.o. twice a day. The patient remains on anticoagulation with Eliquis 5 mg p.o. twice a day. On 09/06/2023, the patient is feeling well. She is on Airvo and she is at 35 L with an FiO2 of 35%. I am going to transition this patient to nasal cannula high flow at 15 L. Will gradually going to wean down FiO2 as tolerated to maintain a saturation above 90%. For the most part, the patient is doing well. She is producing adequate amount of urine output. Less bronchospastic and wheezy. Remains on bronchodilators. Remains on IV Solu-Medrol. Currently she is on Lasix 40 mg p.o. twice a day. She is also on anticoagulants 5 mg p.o. twice a day. She is utilizing the incentive spirometer. BUN is at 48 with a creatinine of 0.9 and sodium levels of 137. No other significant events otherwise for now. No signs of any altered mentation. Clinically stable. On today's evaluation of 09/07/2023, the patient is currently down to 10 L of ox ygen by nasal cannula. I was able to cut her down to 8 L and wean the process of weaning this patient down further. She is doing well. No specific complaints. Airvo system has been discontinued. No new labs are available from today. She remains on bronchodilators and steroids. She is on oral Lasix 40 mg p.o. twice a day she is also on Diamox to 50 mg p.o. daily patient remains on anticoagulation with Eliquis 5 mg twice a day. Sitting up in a chair calm and comfortable remains on IV Solu-Medrol 40 mg every 6 hours. On today's evaluation of 09/08/19, the patient is being seen for a follow-up. This point in time the patient is on 7 L of oxygen by nasal cannula. She is doing well. No specific complaints. BUN is at 50 with a creatinine of 0.9 and sodium levels at 138, WBC count is 11.3 with a hemoglobin of 11.6. The patient remains on Diamox to 50 mg p.o. daily. The patient is also on Lasix 40 mg p.o. twice a day. She remains anticoagulation with Eliquis 5 mg twice a day. Rest of the medication remains unchanged. The patient was kept on IV Solu-Medrol for the time of discharge and following that the patient placed on a prednisone burst taper. Her condition is stable and the patient wants to go to [facility] Objective - Vital Signs Vital signs: Vital Signs Temp 97.4 F L 09/08/23 09:53 Pulse 106 H 09/08/23 09:53 Resp 21 09/08/23 10:07 BP 106/73 09/08/23 09:53 Pulse Ox 90 L 09/08/23 09:53 FiO2 40 09/08/23 04:35 Intake & Output 09/07/23 09/08/23 09/08/23 18:59 06:59 18:59 Intake Total 1440 956 Output Total 700 Balance 1440 256 Weight 122.4 kg Intake: Oral 1440 956 Output: Urine 700 Other: Voiding Method Bedside Commode Bedside Commode Bedside Commode # Voids 1 # Bowel Movements 1 - Exam No acute distress, the patient is currently on 7 L of oxygen by nasal cannula. HEENT examination is grossly unremarkable. Neck supple. Full range of motion. No adenopathy thyromegaly or neck vein distention. Cardiovascular examination reveals irregular rhythm rate. S1-S2 normal. No S3 or S4. A systolic murmur is noted. . Heart sounds are distant. Lungs reveal expiratory wheezes and rhonchi. Breath sounds are equal. No crackles. Abdomen, soft, with bowel sounds. No masses or tenderness. Extremities are intact. No cyanosis clubbing and there is +1 pitting edema lower extremities bilaterally. Skin is without rash or lesion. Neurologic examination is brief but nonfocal. - Labs CBC & Chem 7: 09/08/23 08:23 09/08/23 08:23 Labs: Abnormal Lab Results - Last 24 Hours (Table) 09/07/23 09/07/23 09/07/23 Range/Units 11:20 16:30 20:34 WBC (3.8-10.6) k/uL MCHC (31.0-37.0) g/dL RDW (11.5-15.5) % Neutrophils # (1.3-7.7) k/uL Lymphocytes # (1.0-4.8) k/uL Chloride (98-107) mmol/L Carbon Dioxide (22-30) mmol/L BUN (7-17) mg/dL Glucose (74-99) mg/dL POC Glucose (mg/dL) 222 H 245 H 280 H (70-110) mg/dL 09/08/23 09/08/23 09/08/23 Range/Units 05:53 08:23 08:23 WBC 11.3 H (3.8-10.6) k/uL MCHC 29.1 L (31.0-37.0) g/dL RDW 18.7 H (11.5-15.5) % Neutrophils # 10.4 H (1.3-7.7) k/uL Lymphocytes # 0.5 L (1.0-4.8) k/uL Chloride 95 L (98-107) mmol/L Carbon Dioxide 36 H (22-30) mmol/L BUN 50 H (7-17) mg/dL Glucose 269 H (74-99) mg/dL POC Glucose (mg/dL) 213 H (70-110) mg/dL Assessment and Plan Plan: Acute hypoxic respiratory failure, multifactorial. This is related to her COPD exacerbation and fluid overload and the patient's oxygenation gradually improving. The patient is currently down to 7 L of oxygen by nasal cannula and she is improving and she is less short of breath. Noted over the past 24 to 48 hours, the patient continues to show steady improvement in oxygenation and she has been weaned down to 7 L of oxygen by nasal cannula with a current pulse ox of 96%. Should be able to wean further. Acute on chronic dyspnea likely secondary to fluid overload and a component of COPD/asthma exacerbation, and the patient continues to have some ongoing shor tness of breath, overall improving Chronic hypoxic/hypercapnic respiratory failure, please refer to previous blood gas done on this patient. Severe obstructive sleep apnea with an AHI of 41 and the patient has been titrated to a CPAP pressure of 11 cm of water Previous fall and head trauma with fracture of facial bones with areas of skin bruising. Childhood asthma and the patient reports that she was intubated in the past on multiple occasions as a child in [facility]. Body mass index of above 50 Prior history of significant tobacco use. Multiple hospitalizations most recent of which was attributed to the right lower extremity cellulitis, currently inactive MRSA in the sputum cultures on 07/03/2023 History of atrial fibrillation. Rate is controlled and the patient is on long- term anticoagulation with Eliquis. The rate is controlled at this point in time History of hyperlipidemia. History of hypertension. History of coronary artery disease, with previous PCI/stent placement. History of myocardial infarction. Chronic anxiety/depression. Plan Titrate FiO2 gradually. Currently on 7 L. Continue same treatment as the patient continues to show signs of improvement. BiPAP overnight. Attempt to wean down FiO2 as tolerated to maintain saturation above 90% Continue oral Lasix, 40 mg p.o. twice a day monitor the fluid balance, and the patient is producing adequate amount of urine output with a stable renal function Continue Diamox 250 mg p.o. daily Monitor electrolytes and watch for any significant metabolic alkalosis Monitor fluid balance and achieve a negative fluid balance over the next 24 hours Continue bronchodilators continue IV Solu-Medrol regarding ongoing bronchospasm and wheezing, dose of 40 mg every 6 hours, will transition the patient to a prednisone burst taper at time of discharge. Continue metoprolol and amiodarone and anticoagulation with Eliquis, the patient is on metoprolol 150 mg p.o. twice a day Discharge planning is in progress and the patient is interested in going to an ECF at the time of discharge.
[2023-09-08 16:23] LABS: Glucose,Whole Blood 287 mg/dL (70-110)
[2023-09-08 19:52] LABS: Glucose,Whole Blood 265 mg/dL (70-110)
--- NOTE | 2023-09-08 23:22 | P.PN ---
Subjective Patient is a 57-year-old female with a past medical history of CAD with stenting, chronic diastolic heart failure, hypertension, hyperlipidemia, chronic atrial fibrillation on anticoagulation with Eliquis, type II [id number]-r ependent diabetes mellitus, chronic venous stasis dermatitis with chronic bilateral lower extremity edema, severe obstructive sleep apnea CPAP dependent, and chronic hypoxic respiratory failure secondary to advanced COPD home oxygen dependent 3 L presented to the ER for worsening shortness of breath. Patient was only discharged on hospital day ago, patient stated she was all right till today when in the afternoon started noticing that her breathing was getting worse. Patient was complaining of her heart beating fast and her chest feeling tight. Patient complains of shortness of breath at rest and on exertion as well. Patient denies any fever or chills. There is no complaint of orthopnea or PND. Because of these worsening symptoms, patient called EMS and she was brought to the ER Initial lab work done in the ER showed WBC 11.1, hemoglobin 12.2, platelet count 271, sodium 137, potassium 4.3, BUN 27, creatinine 0.61, lactate 1.4, troponin 0.012, proBNP 5490 EKG done in the ER showed heart rate of 114, QRS 81, irregular rate and rhythm, no ST segment elevation or depression seen, no T-wave inversions seen. Chest x-ray done in the ER moderate to severe CHF Patient admitted to internal medicine service 08/25. Patient seen and examined. Patient was in respiratory distress overnight, continues to be in A-fib with rapid ventricular rate, was started on amiodarone drip. Currently on BiPAP with FiO2 60% 08/27/2023 Patient today is awake and alert at baseline She still complaining from significant dyspnea, currently on BiPAP She remains on IV Lasix 40 mg twice daily, as well as her Eliquis and prednisone burst taper Amiodarone drip switched to oral amiodarone 400 mg today. 08/28/2023 patient still dyspneic start requiring BiPAP. She Answers Questions Approp riately but Looks Tired She Denies Chest Pain or Abdominal Pain. Blood Pressure Is Borderline and This Morning Was 80/40, Blood Pressure Pills Were Held Patient with No Fever Still Tachypneic but Not Tachycardic Her Creatinine Jumped up 1.0 up to 2.4 Therefore We Switch Her IV Lasix to Oral and Hold Her Lisinopril and Other Blood Pressure Normal This Morning. We'll Keep Monitoring Blood Pressure and Creatinine for Now. We'll Send for Urine Analysis Bladder Scan Is 0 Currently she is on Eliquis 5 mg prednisone 30 mg 08/29/2023 Patient remains on BiPAP, today it is somewhat lower lethargic and harder to wake up. Mostly this is related to her metabolic encephalopathy as she has si gnificantly worsening renal function yesterday up to 2.4 which might be contributing besides other medical problems affecting her mentation. Patient is afebrile, Blood pressure slightly better 90/57, she is still tachypneic with a rate around 25, Labs from today are pending She has renal ultrasound which I reviewed myself showing no hydronephrosis but incidental finding of cholelithiasis 5.5 x 6 2.7 x 1.8 cm. She remains on Eliquis 5 mg, Lasix Cardizem and Aldactone held Continue with metoprolol 100 mg and midodrine 5 mg was added Also she is on amiodarone. 08/30/2023 Patient on BiPAP this morning, she is more awake and alert, she follows commands and answers questions appropriately She still have some difficulty breathing and BiPAP is helping her. She denies abdominal pain or chest pain. Blood pressure improved currently 108/75, patient is tachypneic with a breathing rate 26-27 Chest x-ray showing bibasilar infiltrates Creatinine was 2.8 Patient remains on IV Lasix and prednisone 30 mg and Eliquis 5 mg Aldactone and lisinopril are placed on hold. Midodrine is currently 5 mg 3 times per day. I am resuming the care of the patient 09/04/2023 Patient fully awake and oriented today She is an 4 L/min of oxygen via nasal cannula, gradually and slowly coming down She still have prolonged expiration and mild basilar crepitation She has a Wolff. No leg edema Abdomen soft and appetite is good Patient hemodynamically stable Her labs look stable and creatinine improved significantly down to 0.8 Lisinopril and Cardizem remains on hold, currently she is on amiodarone 200 mg twice daily, metoprolol increased to 150 mg twice daily and Diamox and Farxiga. Also she is getting midodrine 5 mg 3 times daily. She is on Eliquis 5 mg and Lasix is switched to 40 mg twice daily She is on the steroids 40 mg every 8 hours 09/05/2023 Patient sitting up in chair asking when she can be discharged Explained the patient she is still on 40 L/min of oxygen via nasal high flow cannula and she is agreeable to stay now No chest pain no other new complaint She is still on oral Lasix 40 mg twice daily and potassium chloride 20 mill equivalent Also she is on Solu-Medrol 40 mg 09/06/2023 Patient is currently on IV Solu-Medrol 40 mg and oral Lasix Her breathing treatment continue to improve and currently she is on 12 L/min compared to 40 L yesterday. No chest pain No other complaint She is still on Eliquis 5 mg 09/07/2023 Breathing is improving Oxygen requirement 8 L/min morning morning, down to 6 L in the evening. Continue on IV Solu-Medrol 40 mg, oral Lasix Nystatin for oral thrush 09/08/2023 Breathing is improving significantly Oxygen requirement down to 4 to 5 L/min in the evening time Comfortable no other complaints Continue with oral Lasix and IV Solu-Medrol Objective - Vital Signs Vital signs: Vital Signs Temp 97.4 F L 09/08/23 09:53 Pulse 97 09/08/23 15:45 Resp 19 09/08/23 15:45 BP 130/94 09/08/23 15:45 Pulse Ox 94 L 09/08/23 15:45 FiO2 40 09/08/23 04:35 Intake & Output 09/08/23 09/08/23 09/09/23 06:59 18:59 06:59 Intake Total 1916 240 Output Total 1350 Balance 566 240 Weight 122.4 kg Intake: Oral 1916 240 Output: Urine 1350 Other: Voiding Method Bedside Commode Bedside Commode # Voids 1 1 # Bowel Movements 1 - Exam --GENERAL: The patient is alert and awake but drowsy. On BiPAP machine. Obese . HEENT: Pupils are round and equally reacting to light. EOMI. No scleral icterus. No conjunctival pallor. Normocephalic, atraumatic. No pharyngeal erythema. No thyromegaly. CARDIOVASCULAR: S1 and S2 present. No murmurs, rubs, or gallops. PU-LMONARY: Chest is clear to auscultation, no wheezing , no crackles. decreased air entry on both sides. ABDOMEN: Soft, nontender, nondistended, normoactive bowel sounds. No palpable organomegaly. MUSCULOSKELETAL: No joint swelling or deformity. EXTREMITIES: No cyanosis, clubbing, or pedal edema. NEUROLOGICAL: Gross neurological examination did not reveal any focal deficits. SKIN: No rashes. no petechiae. - Labs CBC & Chem 7: 09/08/23 08:23 09/08/23 08:23 Labs: Abnormal Lab Results - Last 24 Hours (Table) 09/07/23 09/08/23 09/08/23 Range/Units 20:34 05:53 08:23 WBC 11.3 H (3.8-10.6) k/uL MCHC 29.1 L (31.0-37.0) g/dL RDW 18.7 H (11.5-15.5) % Neutrophils # 10.4 H (1.3-7.7) k/uL Lymphocytes # 0.5 L (1.0-4.8) k/uL Chloride (98-107) mmol/L Carbon Dioxide (22-30) mmol/L BUN (7-17) mg/dL Glucose (74-99) mg/dL POC Glucose (mg/dL) 280 H 213 H (70-110) mg/dL 09/08/23 09/08/23 09/08/23 Range/Units 08:23 11:13 16:21 WBC (3.8-10.6) k/uL MCHC (31.0-37.0) g/dL RDW (11.5-15.5) % Neutrophils # (1.3-7.7) k/uL Lymphocytes # (1.0-4.8) k/uL Chloride 95 L (98-107) mmol/L Carbon Dioxide 36 H (22-30) mmol/L BUN 50 H (7-17) mg/dL Glucose 269 H (74-99) mg/dL POC Glucose (mg/dL) 230 H 287 H (70-110) mg/dL 09/08/23 Range/Units 19:46 WBC (3.8-10.6) k/uL MCHC (31.0-37.0) g/dL RDW (11.5-15.5) % Neutrophils # (1.3-7.7) k/uL Lymphocytes # (1.0-4.8) k/uL Chloride (98-107) mmol/L Carbon Dioxide (22-30) mmol/L BUN (7-17) mg/dL Glucose (74-99) mg/dL POC Glucose (mg/dL) 265 H (70-110) mg/dL Assessment and Plan Assessment: Acute on chronic hypoxic respiratory failure Acute on chronic diastolic heart failure exacerbation Acute COPD exacerbation, with chronic oxygen dependency, baseline 3-4 L at all times acute kidney injury Metabolic encephalopathy Cholelithiasis, asymptomatic Severe obstructive sleep apnea. Atrial fibrillation with RVR in pt with Chronic atrial fibrillation on anticoagulation with Eliquis CAD with previous stent Hypertension, currently borderline hypertensive Hyperlipidemia Bilateral lower extremity edema with venous stasis dermatitis. Type II [id number] diabetes mellitus with hemoglobin A1c of 7%. Morbid obesity with BMI of 50.8 kg/m Plan: Continue with metoprolol and amiodarone and monitor blood pressure. Continue with Eliquis Continue with oral Lasix and Diamox Continue with IV Solu-Medrol 40 mg consult nephrology Cardiology and pulmonary team consult Labs and medication were reviewed.. Continue same treatment. Continue with symptomatic treatment. Resume home medication. Monitor labs and vitals. DVT and GI prophylaxis. Further recommendations as per clinical course of the hong ent DVT prophylaxis: Eliquis GI Prophylaxis: Pepcid PT/OT: Pending Prognosis is guarded
[2023-09-09 06:21] LABS: Glucose,Whole Blood 221 mg/dL (70-110)
--- NOTE | 2023-09-09 10:11 | P.PN ---
Subjective Patient is seen in follow-up for acute kidney injury. Renal function near baseline. On po Lasix. Admits to good urine output. Wolff catheter removed September 04, 2023. No vomiting or diarrhea. No active complaints. Now on 5 L nasal cannula. Vital signs are stable. General: No acute distress. HEENT: Head exam is unremarkable. On nasal cannula. LUNGS: Wheezing at bases. HEART: Rate and Rhythm are regular. ABDOMEN: Obese, nontender. EXTREMITITES: Trace edema. Objective - Vital Signs Vital signs: Vital Signs Temp 98.4 F 09/09/23 09:23 Pulse 99 09/09/23 09:23 Resp 20 09/09/23 09:23 BP 111/73 09/09/23 09:23 Pulse Ox 94 L 09/09/23 09:23 FiO2 50 09/09/23 04:01 Intake & Output 09/08/23 09/09/23 09/09/23 18:59 06:59 18:59 Intake Total 1916 440 480 Output Total 1350 750 Balance 566 440 -270 Weight 115 kg Intake: Oral 1916 440 480 Output: Urine 1350 750 Other: Voiding Method Bedside Commode Bedside Commode Bedside Commode # Voids 1 1 # Bowel Movements 1 1 - Labs CBC & Chem 7: 09/08/23 08:23 09/08/23 08:23 Labs: Abnormal Lab Results - Last 24 Hours (Table) 09/08/23 09/08/23 09/08/23 Range/Units 11:13 16:21 19:46 POC Glucose (mg/dL) 230 H 287 H 265 H (70-110) mg/dL 09/09/23 Range/Units 06:20 POC Glucose (mg/dL) 221 H (70-110) mg/dL Assessment and Plan Plan: Assessment: 1. Acute kidney injury secondary to ATN secondary to cardiorenal syndrome. Improved. UA with 1+ protein and no blood. No hydronephrosis noted on kidney ultrasound. 2. Acute on chronic diastolic CHF. 3. Volume overload. Improved with diuresis. 4. Acute on chronic hypoxic respiratory failure secondary to COPD exacerbation and fluid overload. 5. Mild hypokalemia from diuresis. Better. On maintenance potassium supplementation. 6. Morbid obesity. 7. Diabetes mellitus. Plan: Maintain oral Lasix with potassium supplementation. Maintain Farxiga. Maintain low-salt diet and fluid restriction. Avoid nephrotoxins. Continue to monitor renal function and urine output. Repeat BMP and magnesium level 2 to 3 days postdischarge. Follow-up outpatient in 1 week. Also advised to monitor her weight closely at home. To notify physician if develops worsening edema or gains more than 3 pounds in 1 week duration. Awaits discharge to subacute rehab.
[2023-09-09 11:16] LABS: Glucose,Whole Blood 187 mg/dL (70-110)
[2023-09-09] MEDS: predniSONE 20 MG TAB PO SCH (11:56)
--- NOTE | 2023-09-09 14:14 | P.PN ---
Subjective Progress Note Date: 09/09/23 This is a 57-year-old female familiar to our service, patient has been recently admitted and discharged, we saw her on consultation for her COPD and obesity hypoventilation syndrome, with chronic hypoxic respiratory failure, patient however has been recently admitted with atrial fibrillation RVR, and pulmonary edema related to her atrial fibrillation with RVR. She was just discharged 3 days ago by cardiology, patient was readmitted this time with a similar presentation mostly shortness of breath, atrial fibrillation with RVR, and requiring BiPAP treatment upon admission mostly because of her hypoxia and hypercapnia. Patient is morbidly obese, and I saw her again today in the morning for her shortness of breath. Patient was noted to be on BiPAP, 14/6/60%, and her O2 saturation was in the 90s. Patient was hemodynamically stable, her rate seems to be poorly controlled, and cardiology is to address her cardiac arrhythmia/atrial fibrillation with RVR looking back at this patient's history, she is 57 years old with known history of coronary artery disease and stenting, chronic diastolic congestive heart failure, hypertension, chronic atrial fibrillation on Eliquis, non-insulin dependent diabetes, history of chronic venous stasis changes, history of COPD, obstructive sleep apnea syndrom e, obesity hypoventilation syndrome, and again as noted above patient had multiple admissions with similar presentation to the hospital Chest x-ray on this admission clearly showed evidence of moderate to severe congestive heart failure On today's evaluation of 09/03/2023, I am seeing this patient for a follow-up. The patient was on BiPAP at a pressure of 16/6 with an FiO2 of 50% and the patient was transition to Airvo at 40 L with an FiO2 of 50%. Most recent chest x-ray from today still showing evidence of cardiomegaly and perihilar and bibasilar pulm infiltrates unchanged compared to yesterday and this is consistent with CHF and volume overload. The patient continues to be on diuretics with IV Lasix. The patient has been achieving a negative fluid balance while being on Lasix. She is receiving Lasix 40 mg IV every 12 hours and she is also on Diamox to 50 mg p.o. daily. Her current cardiac rhythm is A- fib. The patient remains on amiodarone at 1 mg p.o. twice a day metoprolol 100 mg p.o. twice daily the patient is also on anticoagulation with Eliquis 5 mg p.o. twice a day. She remains on bronchodilators patient was found to be bronchospastic and wheezy patient was started on steroids today. The white cell count 15.2 with a hemoglobin 9.7 and a platelet count of 366. BUN is at 35 with a creatinine of 0.8. Serum bicarb is at 38 and a sodium levels at 140. Procalcitonin level at time of admission was 0.19. Awake and alert and communicating. No signs of encephalopathy at this point in time. On today's evaluation of 09/04/2023, I am seeing the patient for a follow-up. The patient this morning, and comfortable and the patient is on Airvo 40 L with an FiO2 of 50%. Overnight, she spent on a BiPAP at a pressure of 16/6 with an FiO2 of 50%. She remains on IV Lasix and this was switched to oral Lasix by nephrology. The fluid balance has been negative over the past 24 hours in the order of 1 L. She is producing adequate amount of urine output. BUN is at 36 w ith a creatinine of 0.8 and a serum bicarb is at 35. Patient also has a WBC of 11.3 with a hemoglobin of 11.3 and a platelet count of 337. No altered mentation. No signs of any hypercapnic respiratory failure or CO2 narcosis. The patient remains on DuoNeb updrafts. The patient is on IV Solu-Medrol 40 mg every 6 hours. The patient on anticoagulation with Eliquis 5 mg p.o. twice a day. The patient is also on metoprolol 150 mg twice a day. Rest of the medication remains unchanged. On 09/05/2023, the patient remains on Airvo at 40 L with an FiO2 of 50%. Her current pulse ox is in the order of 94 to 96%. No change in her overall condition. Remains on Lasix and this has been switched to oral Lasix 40 mg p.o. twice a day and combination with Diamox. She remains on bronchodilators. She remains on steroids. Labs from today show a BUN of 42 creatinine of 0.9 and a sodium level is 138. Fluid balance over the past 24 hours is not accurately measured it seems that the patient was not in the "fluid balance. The most recent chest x-ray was done on 09/03/2023 and the patient was found to have coarse perihilar and bibasilar pulmonary fibrosis) essentially unchanged. This is most consistent with CHF. Otherwise, no other significant events over the past 24 hours. IV fluids are currently at KVO. The patient remains on Lopressor 150 mg p.o. twice a day. The patient remains on anticoagulation with Eliquis 5 mg p.o. twice a day. On 09/06/2023, the patient is feeling well. She is on Airvo and she is at 35 L with an FiO2 of 35%. I am going to transition this patient to nasal cannula high flow at 15 L. Will gradually going to wean down FiO2 as tolerated to maintain a saturation above 90%. For the most part, the patient is doing well. She is producing adequate amount of urine output. Less bronchospastic and wheezy. Remains on bronchodilators. Remains on IV Solu-Medrol. Currently she is on Lasix 40 mg p.o. twice a day. She is also on anticoagulants 5 mg p.o. twice a day. She is utilizing the incentive spirometer. BUN is at 48 with a creatinine of 0.9 and sodium levels of 137. No other significant events otherwise for now. No signs of any altered mentation. Clinically stable. On today's evaluation of 09/07/2023, the patient is currently down to 10 L of ox ygen by nasal cannula. I was able to cut her down to 8 L and wean the process of weaning this patient down further. She is doing well. No specific complaints. Airvo system has been discontinued. No new labs are available from today. She remains on bronchodilators and steroids. She is on oral Lasix 40 mg p.o. twice a day she is also on Diamox to 50 mg p.o. daily patient remains on anticoagulation with Eliquis 5 mg twice a day. Sitting up in a chair calm and comfortable remains on IV Solu-Medrol 40 mg every 6 hours. On today's evaluation of 09/08/19, the patient is being seen for a follow-up. This point in time the patient is on 7 L of oxygen by nasal cannula. She is doing well. No specific complaints. BUN is at 50 with a creatinine of 0.9 and sodium levels at 138, WBC count is 11.3 with a hemoglobin of 11.6. The patient remains on Diamox to 50 mg p.o. daily. The patient is also on Lasix 40 mg p.o. twice a day. She remains anticoagulation with Eliquis 5 mg twice a day. Rest of the medication remains unchanged. The patient was kept on IV Solu-Medrol for the time of discharge and following that the patient placed on a prednisone burst taper. Her condition is stable and the patient wants to go to [facility] On today's evaluation of 09/09/2023, the patient is doing well. The patient has been weaned down to 5 L of oxygen by nasal cannula. No respiratory distress. No cough sputum production chest tightness or wheezing. No new labs are available from today. She remains on DuoNeb updrafts. She is also on IV Solu- Medrol as the patient will be switched to prednisone burst taper as of today. She is on Lasix 40 mg twice a day. She remains on anticoagulation with Eliquis 5 mg p.o. twice a day. No other new complaints otherwise for now. Objective - Vital Signs Vital signs: Vital Signs Temp 98.4 F 09/09/23 09:23 Pulse 99 09/09/23 09:23 Resp 20 09/09/23 09:23 BP 111/73 09/09/23 09:23 Pulse Ox 94 L 09/09/23 09:23 FiO2 50 09/09/23 04:01 Intake & Output 09/08/23 09/09/23 09/09/23 18:59 06:59 18:59 Intake Total 1916 440 480 Output Total 1350 750 Balance 566 440 -270 Weight 115 kg Intake: Oral 1916 440 480 Output: Urine 1350 750 Other: Voiding Method Bedside Commode Bedside Commode Bedside Commode # Voids 1 1 # Bowel Movements 1 1 - Exam No acute distress, the patient is currently on 5 L of oxygen by nasal cannula. HEENT examination is grossly unremarkable. Neck supple. Full range of motion. No adenopathy thyromegaly or neck vein distention. Cardiovascular examination reveals irregular rhythm rate. S1-S2 normal. No S3 or S4. A systolic murmur is noted. . Heart sounds are distant. Lungs reveal expiratory wheezes and rhonchi. Breath sounds are equal. No crackles. Abdomen, soft, with bowel sounds. No masses or tenderness. Extremities are intact. No cyanosis clubbing and there is +1 pitting edema lower extremities bilaterally. Skin is without rash or lesion. Neurologic examination is brief but nonfocal. - Labs CBC & Chem 7: 09/08/23 08:23 09/08/23 08:23 Labs: Abnormal Lab Results - Last 24 Hours (Table) 09/08/23 09/08/23 09/08/23 Range/Units 11:13 16:21 19:46 POC Glucose (mg/dL) 230 H 287 H 265 H (70-110) mg/dL 09/09/23 Range/Units 06:20 POC Glucose (mg/dL) 221 H (70-110) mg/dL Assessment and Plan Plan: Acute hypoxic respiratory failure, multifactorial. This is related to her COPD exacerbation and fluid overload and the patient's oxygenation gradually i mproving. The patient is currently down to 5 L of oxygen by nasal cannula and she is improving and she is less short of breath. Noted over the past 24 to 48 hours, the patient continues to show steady improvement in oxygenation Acute on chronic dyspnea likely secondary to fluid overload and a component of COPD/asthma exacerbation, and the patient continues to have some ongoing shortness of breath, overall improving Chronic hypoxic/hypercapnic respiratory failure, please refer to previous blood gas done on this patient. Severe obstructive sleep apnea with an AHI of 41 and the patient has been titrated to a CPAP pressure of 11 cm of water Previous fall and head trauma with fracture of facial bones with areas of skin bruising. Childhood asthma and the patient reports that she was intubated in the past on multiple occasions as a child in [facility]. Body mass index of above 50 Prior history of significant tobacco use. Multiple hospitalizations most recent of which was attributed to the right lower extremity cellulitis, currently inactive MRSA in the sputum cultures on 07/03/2023 History of atrial fibrillation. Rate is controlled and the patient is on long-term anticoagulation with Eliquis. The rate is controlled at this point in time History of hyperlipidemia. History of hypertension. History of coronary artery disease, with previous PCI/stent placement. History of myocardial infarction. Chronic anxiety/depression. Plan Titrate FiO2 gradually. Currently on 5 L nasal cannula Continue same treatment as the patient continues to show signs of improvement. BiPAP overnight. Attempt to wean down FiO2 as tolerated to maintain saturation above 90% Continue oral Lasix, 40 mg p.o. twice a day monitor the fluid balance, and the patient is producing adequate amount of urine output with a stable renal function Continue Diamox 250 mg p.o. daily Monitor electrolytes and watch for any significant metabolic alkalosis Monitor fluid balance and achieve a negative fluid balance over the next 24 hours Continue bronchodilators Discontinued IV Solu-Medrol start the patient on prednisone burst taper Continue metoprolol and amiodarone and anticoagulation with Eliquis, the patient is on metoprolol 150 mg p.o. twice a day Discharge planning is in progress and the patient is interested in going to an ECF at the time of discharge.
[2023-09-09 16:17] LABS: Glucose,Whole Blood 247 mg/dL (70-110)
[2023-09-09 20:02] LABS: Glucose,Whole Blood 343 mg/dL (70-110)
--- NOTE | 2023-09-09 22:55 | P.PN ---
Subjective Patient is a 57-year-old female with a past medical history of CAD with stenting, chronic diastolic heart failure, hypertension, hyperlipidemia, chronic atrial fibrillation on anticoagulation with Eliquis, type II [id number] ependent diabetes mellitus, chronic venous stasis dermatitis with chronic bilateral lower extremity edema, severe obstructive sleep apnea CPAP dependent, and chronic hypoxic respiratory failure secondary to advanced COPD home oxygen dependent 3 L presented to the ER for worsening shortness of breath. Patient was only discharged on hospital day ago, patient stated she was all right till today when in the afternoon started noticing that her breathing was getting worse. Patient was complaining of her heart beating fast and her chest feeling tight. Patient complains of shortness of breath at rest and on exertion as well. Patient denies any fever or chills. There is no complaint of orthopnea or PND. Because of these worsening symptoms, patient called EMS and she was brought to the ER Initial lab work done in the ER showed WBC 11.1, hemoglobin 12.2, platelet count 271, sodium 137, potassium 4.3, BUN 27, creatinine 0.61, lactate 1.4, troponin 0.012, proBNP 5490 EKG done in the ER showed heart rate of 114, QRS 81, irregular rate and rhythm, no ST segment elevation or depression seen, no T-wave inversions seen. Chest x-ray done in the ER moderate to severe CHF Patient admitted to internal medicine service 08/25. Patient seen and examined. Patient was in respiratory distress overnight, continues to be in A-fib with rapid ventricular rate, was started on amiodarone drip. Currently on BiPAP with FiO2 60% 08/27/2023 Patient today is awake and alert at baseline She still complaining from significant dyspnea, currently on BiPAP She remains on IV Lasix 40 mg twice daily, as well as her Eliquis and prednisone burst taper Amiodarone drip switched to oral amiodarone 400 mg today. 08/28/2023 patient still dyspneic start requiring BiPAP. She Answers Questions Approp riately but Looks Tired She Denies Chest Pain or Abdominal Pain. Blood Pressure Is Borderline and This Morning Was 80/40, Blood Pressure Pills Were Held Patient with No Fever Still Tachypneic but Not Tachycardic Her Creatinine Jumped up 1.0 up to 2.4 Therefore We Switch Her IV Lasix to Oral and Hold Her Lisinopril and Other Blood Pressure Normal This Morning. We'll Keep Monitoring Blood Pressure and Creatinine for Now. We'll Send for Urine Analysis Bladder Scan Is 0 Currently she is on Eliquis 5 mg prednisone 30 mg 08/29/2023 Patient remains on BiPAP, today it is somewhat lower lethargic and harder to wake up. Mostly this is related to her metabolic encephalopathy as she has si gnificantly worsening renal function yesterday up to 2.4 which might be contributing besides other medical problems affecting her mentation. Patient is afebrile, Blood pressure slightly better 90/57, she is still tachypneic with a rate around 25, Labs from today are pending She has renal ultrasound which I reviewed myself showing no hydronephrosis but incidental finding of cholelithiasis 5.5 x 6 2.7 x 1.8 cm. She remains on Eliquis 5 mg, Lasix Cardizem and Aldactone held Continue with metoprolol 100 mg and midodrine 5 mg was added Also she is on amiodarone. 08/30/2023 Patient on BiPAP this morning, she is more awake and alert, she follows commands and answers questions appropriately She still have some difficulty breathing and BiPAP is helping her. She denies abdominal pain or chest pain. Blood pressure improved currently 108/75, patient is tachypneic with a breathing rate 26-27 Chest x-ray showing bibasilar infiltrates Creatinine was 2.8 Patient remains on IV Lasix and prednisone 30 mg and Eliquis 5 mg Aldactone and lisinopril are placed on hold. Midodrine is currently 5 mg 3 times per day. I am resuming the care of the patient 09/04/2023 Patient fully awake and oriented today She is an 4 L/min of oxygen via nasal cannula, gradually and slowly coming down She still have prolonged expiration and mild basilar crepitation She has a Wolff. No leg edema Abdomen soft and appetite is good Patient hemodynamically stable Her labs look stable and creatinine improved significantly down to 0.8 Lisinopril and Cardizem remains on hold, currently she is on amiodarone 200 mg twice daily, metoprolol increased to 150 mg twice daily and Diamox and Farxiga. Also she is getting midodrine 5 mg 3 times daily. She is on Eliquis 5 mg and Lasix is switched to 40 mg twice daily She is on the steroids 40 mg every 8 hours 09/05/2023 Patient sitting up in chair asking when she can be discharged Explained the patient she is still on 40 L/min of oxygen via nasal high flow cannula and she is agreeable to stay now No chest pain no other new complaint She is still on oral Lasix 40 mg twice daily and potassium chloride 20 mill equivalent Also she is on Solu-Medrol 40 mg 09/06/2023 Patient is currently on IV Solu-Medrol 40 mg and oral Lasix Her breathing treatment continue to improve and currently she is on 12 L/min compared to 40 L yesterday. No chest pain No other complaint She is still on Eliquis 5 mg 09/07/2023 Breathing is improving Oxygen requirement 8 L/min morning morning, down to 6 L in the evening. Continue on IV Solu-Medrol 40 mg, oral Lasix Nystatin for oral thrush 09/08/2023 Breathing is improving significantly Oxygen requirement down to 4 to 5 L/min in the evening time Comfortable no other complaints Continue with oral Lasix and IV Solu-Medrol 09/09/2023 Breathing is improving She is on 4 L oxygen via nasal cannula Patient generally weak, she may benefit from ECF for rehab. On oral Lasix, oral prednisone 40 mg and Eliquis Objective - Vital Signs Vital signs: Vital Signs Temp 98.4 F 09/09/23 09:23 Pulse 88 09/09/23 16:27 Resp 18 09/09/23 16:27 BP 144/92 09/09/23 16:27 Pulse Ox 92 L 09/09/23 16:27 FiO2 50 09/09/23 04:01 Intake & Output 09/08/23 09/09/23 09/09/23 18:59 06:59 18:59 Intake Total 7451 543 0635 Output Total 1350 750 Balance 566 440 590 Weight 115 kg Intake: Oral 1868 487 6009 Output: Urine 1350 750 Other: Voiding Method Bedside Commode Bedside Commode Bedside Commode # Voids 1 1 # Bowel Movements 1 1 - Exam --GENERAL: The patient is alert and awake but drowsy. On BiPAP machine. Obese . HEENT: Pupils are round and equally reacting to light. EOMI. No scleral icterus. No conjunctival pallor. Normocephalic, atraumatic. No pharyngeal erythema. No thyromegaly. CARDIOVASCULAR: S1 and S2 present. No murmurs, rubs, or gallops. PU-LMONARY: Chest is clear to auscultation, no wheezing , no crackles. decreased air entry on both sides. ABDOMEN: Soft, nontender, nondistended, normoactive bowel sounds. No palpable organomegaly. MUSCULOSKELETAL: No joint swelling or deformity. EXTREMITIES: No cyanosis, clubbing, or pedal edema. NEUROLOGICAL: Gross neurological examination did not reveal any focal deficits. SKIN: No rashes. no petechiae. - Labs CBC & Chem 7: 09/08/23 08:23 09/08/23 08:23 Labs: Abnormal Lab Results - Last 24 Hours (Table) 09/08/23 09/09/23 09/09/23 Range/Units 19:46 06:20 11:13 POC Glucose (mg/dL) 265 H 221 H 187 H (70-110) mg/dL 09/09/23 Range/Units 16:13 POC Glucose (mg/dL) 247 H (70-110) mg/dL Assessment and Plan Assessment: Acute on chronic hypoxic respiratory failure Acute on chronic diastolic heart failure exacerbation Acute COPD exacerbation, with chronic oxygen dependency, baseline 3-4 L at all times acute kidney injury Metabolic encephalopathy Cholelithiasis, asymptomatic Severe obstructive sleep apnea. Atrial fibrillation with RVR in pt with Chronic atrial fibrillation on anticoagulation with Eliquis CAD with previous stent Hypertension, currently borderline hypertensive Hyperlipidemia Bilateral lower extremity edema with venous stasis dermatitis. Type II dkc-[id number]-[id number] diabetes mellitus with hemoglobin A1c of 7%. Morbid obesity with BMI of 50.8 kg/m Plan: Continue with metoprolol and amiodarone and monitor blood pressure. Continue with Eliquis Continue with oral Lasix and Diamox Continue with IV Solu-Medrol 40 mg consult nephrology Cardiology and pulmonary team consult Labs and medication were reviewed.. Continue same treatment. Continue with symptomatic treatment. Resume home medication. Monitor labs and vitals. DVT and GI prophylaxis. Further recommendations as per clinical course of the patient DVT prophylaxis: Eliquis GI Prophylaxis: Pepcid PT/OT: Pending Prognosis is guarded
[2023-09-10 05:59] LABS: Glucose,Whole Blood 165 mg/dL (70-110)
[2023-09-10 10:51] LABS: Anisocytosis Slight; Basophils # (A) 0.1 k/uL (0-0.2); Basophils % (A) 0 %; Eosinophils # (A) 0.2 k/uL (0-0.7); Eosinophils % (A) 1 %; HCT 41.3 % (34.0-46.0); HGB 12.6 gm/dL (11.4-16.0); Hypochromasia Marked; Lymphocytes # (A) 1.1 k/uL (1.0-4.8); Lymphocytes % (A) 4 %; MCHC 30.4 g/dL (31.0-37.0); MCV 91.9 fL (80.0-100.0); Macrocytosis Slight; Mean Platelet Volume 9.5; Monocytes # (A) 0.7 k/uL (0-1.0); Monocytes % (A) 3 %; Neutrophils # (A) 24.1 k/uL (1.3-7.7); Neutrophils % (A) 92 %; Platelet Count 296 k/uL (150-450); RDW 19.1 % (11.5-15.5); WBC 26.4 k/uL (3.8-10.6)
[2023-09-10 11:23] LABS: African American GFR (CKD) 78 (>60 ml/min/1.73 sqM); Anion Gap 7 mmol/L; Blood Urea Nitrogen 47 mg/dL (7-17); Calcium 9.5 mg/dL (8.4-10.2); Carbon Dioxide 35 mmol/L (22-30); Chloride 97 mmol/L (98-107); Glucose 144 mg/dL (74-99); Magnesium 1.8 mg/dL (1.6-2.3); Non-African American GFR(CKD) 68 (>60 ml/min/1.73 sqM); Potassium 4.2 mmol/L (3.5-5.1); Sodium 139 mmol/L (137-145)
--- NOTE | 2023-09-10 11:23 | P.PN ---
Subjective patient is seen for follow-up for acute kidney injury. renal function has improved and staying at baseline. Maintained on oral Lasix No significant complaints today. Objective - Vital Signs Vital signs: Vital Signs Temp 97.6 F 09/10/23 10:11 Pulse 89 09/10/23 10:11 Resp 22 09/10/23 10:11 BP 121/83 09/10/23 10:11 Pulse Ox 89 L 09/10/23 10:11 FiO2 50 09/10/23 04:44 Intake & Output 09/09/23 09/10/23 09/10/23 18:59 06:59 18:59 Intake Total 1580 300 480 Output Total 1450 600 Balance 130 -300 480 Weight 122.4 kg Intake: Oral 1580 300 480 Output: Urine 1450 600 Other: Voiding Method Bedside Commode Bedside Commode # Voids 1 1 2 # Bowel Movements 1 0 1 - Exam patient is awake, comfortable Examination of the heart S1 and S2 Examination of the lungs bilateral breath sounds are heard decreased breath sounds at the bases Abdomen is soft morbidly obese Examination of lower extremity shows edema 1+ bilaterally HAND INSPECTOR 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 intact - Labs CBC & Chem 7: 09/10/23 10:35 09/08/23 08:23 Labs: Abnormal Lab Results - Last 24 Hours (Table) 09/09/23 09/09/23 09/10/23 Range/Units 16:13 20:01 05:58 WBC (3.8-10.6) k/uL MCHC (31.0-37.0) g/dL RDW (11.5-15.5) % Neutrophils # (1.3-7.7) k/uL POC Glucose (mg/dL) 247 H 343 H 165 H (70-110) mg/dL 09/10/23 Range/Units 10:35 WBC 26.4 H (3.8-10.6) k/uL MCHC 30.4 L (31.0-37.0) g/dL RDW 19.1 H (11.5-15.5) % Neutrophils # 24.1 H (1.3-7.7) k/uL POC Glucose (mg/dL) (70-110) mg/dL Assessment and Plan Assessment: 1. Acute kidney injury secondary to hypotension in the setting of use of ABA inhibitor's. improved. UA is quite benign. 2. Hyperkalemia associated with acute kidney injury, resolved 3. Acute hypoxic respiratory failure secondary to CHF exacerbation, improved 4. Chronic diastolic heart failure 5. Metabolic alkalosis associated with underlying COPD and diuresis Plan: continue oral Lasix. Continue with midodrine continue Diamox monitor renal function as outpatient.
[2023-09-10 11:31] LABS: Glucose,Whole Blood 120 mg/dL (70-110)
--- NOTE | 2023-09-10 14:13 | XR ---
EXAMINATION TYPE: XR chest 1V portable DATE OF EXAM: 09/10/2023 COMPARISON: 09/03/2023 INDICATION: Shortness of breath, cough TECHNIQUE: Single frontal view of the chest is obtained. FINDINGS: The heart size is mildly prominent. The pulmonary vasculature is normal. Mild bibasilar infiltrates are present. Findings appear stable from earlier exam. IMPRESSION: 1. Mild stable appearing bibasilar infiltrates. 2. Mild cardiomegaly
--- NOTE | 2023-09-10 16:03 | P.PN ---
Subjective Progress Note Date: 09/10/23 Principal diagnosis: Acute on chronic hypoxemic respiratory failure secondary to an acute exacerbation of diastolic congestive heart failure This is a 57-year-old female familiar to our service, patient has been recently admitted and discharged, we saw her on consultation for her COPD and obesity hypoventilation syndrome, with chronic hypoxic respiratory failure, patient how ever has been recently admitted with atrial fibrillation RVR, and pulmonary edema related to her atrial fibrillation with RVR. She was just discharged 3 days ago by cardiology, patient was readmitted this time with a similar presentation mostly shortness of breath, atrial fibrillation with RVR, and requiring BiPAP treatment upon admission mostly because of her hypoxia and hypercapnia. Patient is morbidly obese, and I saw her again today in the morning for her shortness of breath. Patient was noted to be on BiPAP, 14/6/60%, and her O2 saturation was in the 90s. Patient was hemodynamically s table, her rate seems to be poorly controlled, and cardiology is to address her cardiac arrhythmia/atrial fibrillation with RVR looking back at this patient's history, she is 57 years old with known history of coronary artery disease and stenting, chronic diastolic congestive heart failure, hypertension, chronic atrial fibrillation on Eliquis, non-insulin dependent diabetes, history of chronic venous stasis changes, history of COPD, obstructive sleep apnea syndrome, obesity hypoventilation syndrome, and again as noted above patient had multiple admissions with similar presentation to the hospital Chest x-ray on this admission clearly showed evidence of moderate to severe congestive heart failure Patient was reevaluated today on 08/26/2023, remains on BiPAP, 16/6/60%, patient continues to have some shortness of breath and intermittent episodes of cough. Chest x-ray is showing improvement in her pulmonary edema, doubt underlying pneumonia. Her atrial fibrillation seems to be better controlled. ABG earlier this morning showed a pO2 of 67 pCO2 67 pH of 7.36 WBC count is 9.8 hemoglobin 11.1 basic metabolic profile is normal, renal profile is normal On 09/06/2023, the patient is feeling well. She is on Airvo and she is at 35 L with an FiO2 of 35%. I am going to transition this patient to nasal cannula high flow at 15 L. Will gradually going to wean down FiO2 as tolerated to shanelle ntain a saturation above 90%. For the most part, the patient is doing well. She is producing adequate amount of urine output. Less bronchospastic and wheezy. Remains on bronchodilators. Remains on IV Solu-Medrol. Currently she is on Lasix 40 mg p.o. twice a day. She is also on anticoagulants 5 mg p.o. twice a day. She is utilizing the incentive spirometer. BUN is at 48 with a creatinine of 0.9 and sodium levels of 137. No other significant events otherwise for now. No signs of any altered mentation. Clinically stable. On today's evaluation of 09/07/2023, the patient is currently down to 10 L of oxygen by nasal cannula. I was able to cut her down to 8 L and wean the process of weaning this patient down further. She is doing well. No specific complaints. Airvo system has been discontinued. No new labs are available from today. She remains on bronchodilators and steroids. She is on oral Lasix 40 mg p.o. twice a day she is also on Diamox to 50 mg p.o. daily patient remains on anticoagulation with Eliquis 5 mg twice a day. Sitting up in a chair calm and comfortable remains on IV Solu-Medrol 40 mg every 6 hours. On today's evaluation of 09/08/19, the patient is being seen for a follow-up. This point in time the patient is on 7 L of oxygen by nasal cannula. She is doing well. No specific complaints. BUN is at 50 with a creatinine of 0.9 and sodium levels at 138, WBC count is 11.3 with a hemoglobin of 11.6. The patient remains on Diamox to 50 mg p.o. daily. The patient is also on Lasix 40 mg p.o. twice a day. She remains anticoagulation with Eliquis 5 mg twice a day. Rest of the medication remains unchanged. The patient was kept on IV Solu-Medrol for the time of discharge and following that the patient placed on a prednisone burst taper. Her condition is stable and the patient wants to go to [facility] On today's evaluation of 09/09/2023, the patient is doing well. The patient has been weaned down to 5 L of oxygen by nasal cannula. No respiratory distress. No cough sputum production chest tightness or wheezing. No new labs are available from today. She remains on DuoNe updrafts. She is also on IV Solu- Medrol as the patient will be switched to prednisone burst taper as of today. She is on Lasix 40 mg twice a day. She remains on anticoagulation with Eliquis 5 mg p.o. twice a day. No other new complaints otherwise for now. Patient was evaluated today on 09/10/2023, patient is now on 5 L nasal cannula high flow, O2 saturation 90%, blood pressure is 120/68, she feels better, breathing easier, patient is asking to be discharged home, patient has home O2, she has BiPAP machine at home, and I felt that the patient needs to be cleared by cardiology before clearing her for discharge by self. Her main presentation was mostly a cardiac presentation with congestive heart failure, atrial fibrillation with RVR, and patient had frequent admissions with similar presentations in the past.Patient has leukocytosis with WBC of 26.4 hemoglobin is 12.6 basic metabolic profile is normal renal profile is normal bicarb is 35 chest x-ray showed mostly mild congestive heart failure with bibasilar atelectasis and cardiomegaly Objective - Vital Signs Vital signs: Vital Signs Temp 97.6 F 09/10/23 10:11 Pulse 112 H 09/10/23 15:31 Resp 18 09/10/23 12:26 BP 120/68 09/10/23 12:26 Pulse Ox 90 L 09/10/23 12:26 FiO2 50 09/10/23 04:44 Intake & Output 09/09/23 09/10/23 09/10/23 18:59 06:59 18:59 Intake Total 1580 300 480 Output Total 1450 600 Balance 130 -300 480 Weight 122.4 kg Intake: Oral 1580 300 480 Output: Urine 1450 600 Other: Voiding Method Bedside Commode Bedside Commode Bedside Commode # Voids 1 1 2 # Bowel Movements 1 0 1 - Exam GENERAL EXAM: Reveals a 57-year-old female obese, 5 L Nasal cannula, not in distress HEAD: Normocephalic. EYES: Normal reaction of pupils, equal size. NOSE: Clear with pink turbinates. THROAT: No erythema or exudates. Crowding of the posterior pharynx NECK: Short. No masses, no JVD. CHEST: No chest wall deformity. LUNGS: Diminished breath sounds at the bases CVS: Irregular irregular rhythm, normal S1 and S2 normal with no audible murmur, ABDOMEN: Obesity, unable to appreciate any hepatosplenomegaly, normal bowel sounds, no guarding or rigidity. SKIN: No rashes CENTRAL NERVOUS SYSTEM: Alert oriented x 3 no gross focal deficit Psychiatric: Normal mood affect and no mental status examination EXTREMITIES: Trace of bipedal edema no clubbing or cyanosis. - Labs CBC & Chem 7: 09/10/23 10:35 09/10/23 10:35 Labs: Abnormal Lab Results - Last 24 Hours (Table) 09/09/23 09/09/23 09/10/23 Range/Units 16:13 20:01 05:58 WBC (3.8-10.6) k/uL MCHC (31.0-37.0) g/dL RDW (11.5-15.5) % Neutrophils # (1.3-7.7) k/uL Chloride (98-107) mmol/L Carbon Dioxide (22-30) mmol/L BUN (7-17) mg/dL Glucose (74-99) mg/dL POC Glucose (mg/dL) 247 H 343 H 165 H (70-110) mg/dL 09/10/23 09/10/23 09/10/23 Range/Units 10:35 10:35 11:30 WBC 26.4 H (3.8-10.6) k/uL MCHC 30.4 L (31.0-37.0) g/dL RDW 19.1 H (11.5-15.5) % Neutrophils # 24.1 H (1.3-7.7) k/uL Chloride 97 L (98-107) mmol/L Carbon Dioxide 35 H (22-30) mmol/L BUN 47 H (7-17) mg/dL Glucose 144 H (74-99) mg/dL POC Glucose (mg/dL) 120 H (70-110) mg/dL Assessment and Plan Assessment: Impression: Chronic atrial fibrillation however the patient presented now with atrial fibrillation and RVR most likely contributing to her pulmonary edema. Acute on chronic hypoxemic respiratory failure secondary to an acute exacerbation of diastolic congestive heart failure with mild increasing interstitial edema bilaterally in addition to increased lower extremity edema bilaterally. Acute on chronic hypercapnic respiratory failure Severe obstructive sleep apnea with an AHI of 41 and titrated to a CPAP pressure of 11 cm of water Childhood asthma and the patient reports that she was intubated in the past on multiple occasions as a child in [facility]. Morbid obesity with a BMI of 50.8 kg/m Prior history of significant tobacco use Acute COPD exacerbation. History of atrial fibrillation. History of hyperlipidemia History of hypertension History of coronary artery disease, with previous PCI/stent placement History of myocardial infarction Chronic anxiety/depression Recommendation: Continue present supportive care measures Continue to titrate FiO2 accordingly presently on 5 L nasal cannula Use BiPAP as needed Continue diuretics as per cardiology Continue Diamox to 50 mg p.o. daily Continue to monitor electrolytes and renal status Continue oral prednisone and taper on outpatient basis. Continue metoprolol and amiodarone as well as Eliquis Discharge when cleared by cardiology Continue bronchodilators and steroids Will continue to follow Time with Patient: Less than 30
[2023-09-10 16:28] LABS: Glucose,Whole Blood 202 mg/dL (70-110)
[2023-09-10] MEDS: HYDROcodone/APAP 10-325MG 1 EACH TAB PO SCH (16:43)
[2023-09-10 19:56] LABS: Glucose,Whole Blood 285 mg/dL (70-110)
[2023-09-10] MEDS: SYMBICORT 160-4.5 MCG INHALER INHALATION SCH (20:38)
[2023-09-11 05:45] LABS: Glucose,Whole Blood 128 mg/dL (70-110)
--- NOTE | 2023-09-11 07:10 | P.PN ---
Subjective Progress Note Date: 09/10/23 Patient is a 57-year-old female with a past medical history of CAD with stenting, chronic diastolic heart failure, hypertension, hyperlipidemia, chronic atrial fibrillation on anticoagulation with Eliquis, type II [id number] diabetes mellitus, chronic venous stasis dermatitis with chronic bilateral lower extremity edema, severe obstructive sleep apnea CPAP dependent, and chronic hypoxic respiratory failure secondary to advanced COPD home oxygen dependent 3 L presented to the ER for worsening shortness of breath. Patient was only discharged on hospital day ago, patient stated she was all right till today when in the afternoon started noticing that her breathing was getting worse. Patient was complaining of her heart beating fast and her chest feeling tight. Patient complains of shortness of breath at rest and on exertion as well. Patient denies any fever or chills. There is no complaint of orthopnea or PND. Because of these worsening symptoms, patient called EMS and she was brought to the ER Initial lab work done in the ER showed WBC 11.1, hemoglobin 12.2, platelet count 271, sodium 137, potassium 4.3, BUN 27, creatinine 0.61, lactate 1.4, troponin 0.012, proBNP 5490 EKG done in the ER showed heart rate of 114, QRS 81, irregular rate and rhythm, no ST segment elevation or depression seen, no T-wave inversions seen. Chest x-ray done in the ER moderate to severe CHF Patient admitted to internal medicine service 08/25. Patient seen and examined. Patient was in respiratory distress overnight, continues to be in A-fib with rapid ventricular rate, was started on amiodarone drip. Currently on BiPAP with FiO2 60% 08/27/2023 Patient today is awake and alert at baseline She still complaining from significant dyspnea, currently on BiPAP She remains on IV Lasix 40 mg twice daily, as well as her Eliquis and prednisone burst taper Amiodarone drip switched to oral amiodarone 400 mg today. 08/28/2023 patient still dyspneic start requiring BiPAP. She Answers Questions Appropriately but Looks Tired She Denies Chest Pain or Abdominal Pain. Blood Pressure Is Borderline and This Morning Was 80/40, Blood Pressure Pills Were Held Patient with No Fever Still Tachypneic but Not Tachycardic Her Creatinine Jumped up 1.0 up to 2.4 Therefore We Switch Her IV Lasix to Oral and Hold Her Lisinopril and Other Blood Pressure Normal This Morning. We'll Keep Monitoring Blood Pressure and Creatinine for Now. We'll Send for Urine Analysis Bladder Scan Is 0 Currently she is on Eliquis 5 mg prednisone 30 mg 08/29/2023 Patient remains on BiPAP, today it is somewhat lower lethargic and harder to wake up. Mostly this is related to her metabolic encephalopathy as she has si gnificantly worsening renal function yesterday up to 2.4 which might be contributing besides other medical problems affecting her mentation. Patient is afebrile, Blood pressure slightly better 90/57, she is still tachypneic with a rate around 25, Labs from today are pending She has renal ultrasound which I reviewed myself showing no hydronephrosis but incidental finding of cholelithiasis 5.5 x 6 2.7 x 1.8 cm. She remains on Eliquis 5 mg, Lasix Cardizem and Aldactone held Continue with metoprolol 100 mg and midodrine 5 mg was added Also she is on amiodarone. 08/30/2023 Patient on BiPAP this morning, she is more awake and alert, she follows commands and answers questions appropriately She still have some difficulty breathing and BiPAP is helping her. She denies abdominal pain or chest pain. Blood pressure improved currently 108/75, patient is tachypneic with a breathing rate 26-27 Chest x-ray showing bibasilar infiltrates Creatinine was 2.8 Patient remains on IV Lasix and prednisone 30 mg and Eliquis 5 mg Aldactone and lisinopril are placed on hold. Midodrine is currently 5 mg 3 og es per day. I am resuming the care of the patient 09/04/2023 Patient fully awake and oriented today She is an 4 L/min of oxygen via nasal cannula, gradually and slowly coming down She still have prolonged expiration and mild basilar crepitation She has a Wolff. No leg edema Abdomen soft and appetite is good Patient hemodynamically stable Her labs look stable and creatinine improved significantly down to 0.8 Lisinopril and Cardizem remains on hold, currently she is on amiodarone 200 mg twice daily, metoprolol increased to 150 mg twice daily and Diamox and Farxiga. Also she is getting midodrine 5 mg 3 times daily. She is on Eliquis 5 mg and Lasix is switched to 40 mg twice daily She is on the steroids 40 mg every 8 hours 09/05/2023 Patient sitting up in chair asking when she can be discharged Explained the patient she is still on 40 L/min of oxygen via nasal high flow cannula and she is agreeable to stay now No chest pain no other new complaint She is still on oral Lasix 40 mg twice daily and potassium chloride 20 mill equivalent Also she is on Solu-Medrol 40 mg 09/06/2023 Patient is currently on IV Solu-Medrol 40 mg and oral Lasix Her breathing treatment continue to improve and currently she is on 12 L/min compared to 40 L yesterday. No chest pain No other complaint She is still on Eliquis 5 mg 09/07/2023 Breathing is improving Oxygen requirement 8 L/min morning morning, down to 6 L in the evening. Continue on IV Solu-Medrol 40 mg, oral Lasix Nystatin for oral thrush 09/08/2023 Breathing is improving significantly Oxygen requirement down to 4 to 5 L/min in the evening time Comfortable no other complaints Continue with oral Lasix and IV Solu-Medrol 09/09/2023 Breathing is improving She is on 4 L oxygen via nasal cannula Patient generally weak, she may benefit from ECF for rehab. On oral Lasix, oral prednisone 40 mg and Eliquis 09/10/2023 Patient is seen and evaluated in follow-up and reports to feeling improved. Patient does use CPAP/BiPAP at night and is currently continued on 5 L via nasal cannula. Patient chronically wears oxygen outpatient. Patient continues with significant weakness with case management following and has been evaluated by physical therapy recommending rehab and patient is agreeable. Patient awaiting insurance authorization for [facility]. Patient has been transition to oral Lasix as well as oral prednisone and will continue to taper with close outpatient follow-up with pulmonary. Patient is afebrile with no r eports of chest pain or worsening shortness of breath. Patient is anxious and wants to get going. Consultations reporting patient is stable for discharge to ECF. Will await insurance authorization Review of systems: Constitutional: No reports of fatigue, fever, or chills Cardiovascular: No reports of chest pain or palpitations Respiratory: No reports of worsening shortness of breath, reports chronic cough GI: No reports of nausea, vomiting, or diarrhea : No reports of dysuria or retention Neurovascular: reports of significant generalized weakness All medications have been reviewed Physical exam: GENERAL: The patient is awake, alert and oriented on 5 L via nasal cannula, BiPAP at night, well-developed, well-nourished, elderly appearing, morbidly obese HEENT: Pupils are round and equally reacting to light. EOMI. No scleral icterus. No conjunctival pallor. Normocephalic, atraumatic. No pharyngeal erythema. No thyromegaly. CARDIOVASCULAR: S1 and S2 muffled PU-LMONARY: Diminished breath sounds bilaterally with coarse rhonchi and minimal expiratory wheezing noted ABDOMEN: Soft, obese nontender, nondistended, normoactive bowel sounds. No palpable organomegaly. MUSCULOSKELETAL: No joint swelling or deformity. EXTREMITIES: No cyanosis, clubbing, or pedal edema. Generalized edema noted bilaterally NEUROLOGICAL: Gross neurological examination did not reveal any focal deficits. Diffusely weak SKIN: No rashes. no petechiae. Assessment: Acute on chronic hypoxic respiratory failure multifactorial secondary to COPD as well as CHF exacerbation Acute on chronic diastolic heart failure exacerbation Acute COPD exacerbation, with chronic oxygen dependency, baseline 3-4 L at all times acute kidney injury Metabolic encephalopathy Cholelithiasis, asymptomatic Severe obstructive sleep apnea. Uses CPAP at night Atrial fibrillation with RVR in pt with Chronic atrial fibrillation on anticoagulation with Eliquis CAD with previous stent Hypertension, currently borderline hypertensive Hyperlipidemia Bilateral lower extremity edema with venous stasis dermatitis. Type II [id number] diabetes mellitus with hemoglobin A1c of 7%. Morbid obesity with BMI of 50.8 kg/m GI prophylaxis DVT prophylaxis Full code Plan: Continue with metoprolol and amiodarone and monitor blood pressure. Continue with Eliquis. Continue other cardiac medications and patient has been transition to oral Lasix Continue with DuoNeb treatments [id number] as well as as needed and has been transition to oral prednisone. Will continue with taper on discharge Continue supplemental oxygen currently on 5 L and recommend to wean as tolerated. Patient chronically wears 3-4 l outpatient. Continue with CPAP/BiPAP at night PT/OT therapy evaluated patient recommending rehab and patient is agreeable. Patient would like [facility]. Currently awaiting insurance authorization with case management following Due to multiple complex medical issues, prognosis is guarded Possible discharge planning in the next 24 to 48 hours The impression and plan of care has been dictated by Virginia Amaya, Nurse Practitioner as directed. Dr. Yared MD I have performed a history and examination and MDM of this patient, discussed the same with the dictator, and agree with the dictator's assessment and plan as written ,documented as a scribe. Based on total visit time, I have performed more than 50% of the visit. Objective - Vital Signs Vital signs: Vital Signs Temp 97.6 F 09/10/23 10:11 Pulse 104 H 09/10/23 14:00 Resp 18 09/10/23 12:26 BP 120/68 09/10/23 12:26 Pulse Ox 90 L 09/10/23 12:26 FiO2 50 09/10/23 04:44 Intake & Output 09/09/23 09/10/23 09/10/23 18:59 06:59 18:59 Intake Total 1580 300 480 Output Total 1450 600 Balance 130 -300 480 Weight 122.4 kg Intake: Oral 1580 300 480 Output: Urine 1450 600 Other: Voiding Method Bedside Commode Bedside Commode Bedside Commode # Voids 1 1 2 # Bowel Movements 1 0 1 - Labs CBC & Chem 7: 09/10/23 10:35 09/10/23 10:35 Labs: Abnormal Lab Results - Last 24 Hours (Table) 09/09/23 09/09/23 09/10/23 Range/Units 16:13 20:01 05:58 WBC (3.8-10.6) k/uL MCHC (31.0-37.0) g/dL RDW (11.5-15.5) % Neutrophils # (1.3-7.7) k/uL Chloride (98-107) mmol/L Carbon Dioxide (22-30) mmol/L BUN (7-17) mg/dL Glucose (74-99) mg/dL POC Glucose (mg/dL) 247 H 343 H 165 H (70-110) mg/dL 09/10/23 09/10/23 09/10/23 Range/Units 10:35 10:35 11:30 WBC 26.4 H (3.8-10.6) k/uL MCHC 30.4 L (31.0-37.0) g/dL RDW 19.1 H (11.5-15.5) % Neutrophils # 24.1 H (1.3-7.7) k/uL Chloride 97 L (98-107) mmol/L Carbon Dioxide 35 H (22-30) mmol/L BUN 47 H (7-17) mg/dL Glucose 144 H (74-99) mg/dL POC Glucose (mg/dL) 120 H (70-110) mg/dL
[2023-09-11 10:27] LABS: Anisocytosis Slight; Basophils % (A) 0 %; Eosinophils # (A) 0.1 k/uL (0-0.7); Eosinophils % (A) 1 %; HCT 40.5 % (34.0-46.0); HGB 11.4 gm/dL (11.4-16.0); Hypochromasia Marked; Lymphocytes # (A) 1.2 k/uL (1.0-4.8); Lymphocytes % (A) 6 %; MCH 26.1 pg (25.0-35.0); MCHC 28.2 g/dL (31.0-37.0); MCV 92.5 fL (80.0-100.0); Macrocytosis Slight; Mean Platelet Volume 9.4; Monocytes % (A) 5 %; Neutrophils # (A) 17.5 k/uL (1.3-7.7); Neutrophils % (A) 88 %; Platelet Count 251 k/uL (150-450); RBC 4.38 m/uL (3.80-5.40); RDW 19.4 % (11.5-15.5); WBC 19.9 k/uL (3.8-10.6)
[2023-09-11 10:42] LABS: African American GFR (CKD) 86 (>60 ml/min/1.73 sqM); Anion Gap 7 mmol/L; Blood Urea Nitrogen 36 mg/dL (7-17); Calcium 8.8 mg/dL (8.4-10.2); Carbon Dioxide 35 mmol/L (22-30); Chloride 96 mmol/L (98-107); Glucose 120 mg/dL (74-99); Magnesium 1.7 mg/dL (1.6-2.3); Non-African American GFR(CKD) 75 (>60 ml/min/1.73 sqM); Potassium 3.9 mmol/L (3.5-5.1); Sodium 138 mmol/L (137-145)
[2023-09-11 11:24] LABS: Glucose,Whole Blood 153 mg/dL (70-110)
--- NOTE | 2023-09-11 11:30 | P.PN ---
Subjective patient is seen for follow-up for acute kidney injury. renal function has improved and staying at baseline. Maintained on oral Lasix No significant complaints today. patient wants to go home. Objective - Vital Signs Vital signs: Vital Signs Temp 97.6 F 09/11/23 07:50 Pulse 100 09/11/23 11:23 Resp 20 09/11/23 07:50 BP 141/99 09/11/23 07:50 Pulse Ox 90 L 09/11/23 07:50 FiO2 50 09/11/23 04:08 Intake & Output 09/10/23 09/11/23 09/11/23 18:59 06:59 18:59 Intake Total 337 804 0311 Output Total 950 Balance 480 -350 1240 Weight 123.2 kg Intake: Oral 808 578 2111 Output: Urine 950 Other: Voiding Method Bedside Commode Bedside Commode Bedside Commode # Voids 1 2 1 # Bowel Movements 1 - Exam patient is awake, comfortable Examination of the heart S1 and S2 Examination of the lungs bilateral breath sounds are heard decreased breath sounds at the bases Abdomen is soft morbidly obese Examination of lower extremity shows edema 1+ bilaterally NEPHROLOGY NURSE 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 intact - Labs CBC & Chem 7: 09/11/23 09:45 09/11/23 09:45 Labs: Abnormal Lab Results - Last 24 Hours (Table) 09/10/23 09/10/23 09/10/23 Range/Units 11:30 16:27 19:54 WBC (3.8-10.6) k/uL MCHC (31.0-37.0) g/dL RDW (11.5-15.5) % Neutrophils # (1.3-7.7) k/uL Chloride (98-107) mmol/L Carbon Dioxide (22-30) mmol/L BUN (7-17) mg/dL Glucose (74-99) mg/dL POC Glucose (mg/dL) 120 H 202 H 285 H (70-110) mg/dL 09/11/23 09/11/23 09/11/23 Range/Units 05:44 09:45 09:45 WBC 19.9 H (3.8-10.6) k/uL MCHC 28.2 L (31.0-37.0) g/dL RDW 19.4 H (11.5-15.5) % Neutrophils # 17.5 H (1.3-7.7) k/uL Chloride 96 L (98-107) mmol/L Carbon Dioxide 35 H (22-30) mmol/L BUN 36 H (7-17) mg/dL Glucose 120 H (74-99) mg/dL POC Glucose (mg/dL) 128 H (70-110) mg/dL 09/11/23 Range/Units 11:23 WBC (3.8-10.6) k/uL MCHC (31.0-37.0) g/dL RDW (11.5-15.5) % Neutrophils # (1.3-7.7) k/uL Chloride (98-107) mmol/L Carbon Dioxide (22-30) mmol/L BUN (7-17) mg/dL Glucose (74-99) mg/dL POC Glucose (mg/dL) 153 H (70-110) mg/dL Assessment and Plan Assessment: 1. Acute kidney injury secondary to hypotension in the setting of use of ABA inhibitor's. improved. serum creatinine at 0.87. UA is quite benign. 2. Hyperkalemia associated with acute kidney injury, resolved 3. Acute hypoxic respiratory failure secondary to CHF exacerbation, improved 4. Chronic diastolic heart failure 5. Metabolic alkalosis associated with underlying COPD and diuresis Plan: continue oral Lasix. increase dose to 60 mg twice a day Continue with midodrine continue Diamox monitor renal function as outpatient.
--- NOTE | 2023-09-11 14:00 | P.PN ---
Subjective Progress Note Date: 09/11/23 Principal diagnosis: Acute on chronic hypoxemic respiratory failure secondary to an acute exacerbation of diastolic congestive heart failure This is a 57-year-old female familiar to our service, patient has been recently admitted and discharged, we saw her on consultation for her COPD and obesity hypoventilation syndrome, with chronic hypoxic respiratory failure, patient how ever has been recently admitted with atrial fibrillation RVR, and pulmonary edema related to her atrial fibrillation with RVR. She was just discharged 3 days ago by cardiology, patient was readmitted this time with a similar presentation mostly shortness of breath, atrial fibrillation with RVR, and requiring BiPAP treatment upon admission mostly because of her hypoxia and hypercapnia. Patient is morbidly obese, and I saw her again today in the morning for her shortness of breath. Patient was noted to be on BiPAP, 14/6/60%, and her O2 saturation was in the 90s. Patient was hemodynamically s table, her rate seems to be poorly controlled, and cardiology is to address her cardiac arrhythmia/atrial fibrillation with RVR looking back at this patient's history, she is 57 years old with known history of coronary artery disease and stenting, chronic diastolic congestive heart failure, hypertension, chronic atrial fibrillation on Eliquis, non-insulin dependent diabetes, history of chronic venous stasis changes, history of COPD, obstructive sleep apnea syndrome, obesity hypoventilation syndrome, and again as noted above patient had multiple admissions with similar presentation to the hospital Chest x-ray on this admission clearly showed evidence of moderate to severe congestive heart failure Patient was reevaluated today on 08/26/2023, remains on BiPAP, 16/6/60%, patient continues to have some shortness of breath and intermittent episodes of cough. Chest x-ray is showing improvement in her pulmonary edema, doubt underlying pneumonia. Her atrial fibrillation seems to be better controlled. ABG earlier this morning showed a pO2 of 67 pCO2 67 pH of 7.36 WBC count is 9.8 hemoglobin 11.1 basic metabolic profile is normal, renal profile is normal On 09/06/2023, the patient is feeling well. She is on Airvo and she is at 35 L with an FiO2 of 35%. I am going to transition this patient to nasal cannula high flow at 15 L. Will gradually going to wean down FiO2 as tolerated to shanelle ntain a saturation above 90%. For the most part, the patient is doing well. She is producing adequate amount of urine output. Less bronchospastic and wheezy. Remains on bronchodilators. Remains on IV Solu-Medrol. Currently she is on Lasix 40 mg p.o. twice a day. She is also on anticoagulants 5 mg p.o. twice a day. She is utilizing the incentive spirometer. BUN is at 48 with a creatinine of 0.9 and sodium levels of 137. No other significant events otherwise for now. No signs of any altered mentation. Clinically stable. On today's evaluation of 09/07/2023, the patient is currently down to 10 L of oxygen by nasal cannula. I was able to cut her down to 8 L and wean the process of weaning this patient down further. She is doing well. No specific complaints. Airvo system has been discontinued. No new labs are available from today. She remains on bronchodilators and steroids. She is on oral Lasix 40 mg p.o. twice a day she is also on Diamox to 50 mg p.o. daily patient remains on anticoagulation with Eliquis 5 mg twice a day. Sitting up in a chair calm and comfortable remains on IV Solu-Medrol 40 mg every 6 hours. On today's evaluation of 09/08/19, the patient is being seen for a follow-up. This point in time the patient is on 7 L of oxygen by nasal cannula. She is doing well. No specific complaints. BUN is at 50 with a creatinine of 0.9 and sodium levels at 138, WBC count is 11.3 with a hemoglobin of 11.6. The patient remains on Diamox to 50 mg p.o. daily. The patient is also on Lasix 40 mg p.o. twice a day. She remains anticoagulation with Eliquis 5 mg twice a day. Rest of the medication remains unchanged. The patient was kept on IV Solu-Medrol for the time of discharge and following that the patient placed on a prednisone burst taper. Her condition is stable and the patient wants to go to [facility] On today's evaluation of 09/09/2023, the patient is doing well. The patient has been weaned down to 5 L of oxygen by nasal cannula. No respiratory distress. No cough sputum production chest tightness or wheezing. No new labs are available from today. She remains on DuoNe updrafts. She is also on IV Solu- Medrol as the patient will be switched to prednisone burst taper as of today. She is on Lasix 40 mg twice a day. She remains on anticoagulation with Eliquis 5 mg p.o. twice a day. No other new complaints otherwise for now. Patient was evaluated today on 09/10/2023, patient is now on 5 L nasal cannula high flow, O2 saturation 90%, blood pressure is 120/68, she feels better, breathing easier, patient is asking to be discharged home, patient has home O2, she has BiPAP machine at home, and I felt that the patient needs to be cleared by cardiology before clearing her for discharge by self. Her main presentation was mostly a cardiac presentation with congestive heart failure, atrial fibrillation with RVR, and patient had frequent admissions with similar presentations in the past.Patient has leukocytosis with WBC of 26.4 hemoglobin is 12.6 basic metabolic profile is normal renal profile is normal bicarb is 35 chest x-ray showed mostly mild congestive heart failure with bibasilar atelectasis and cardiomegaly Reevaluate today on 09/11/2023, patient is on nasal cannula at 5 L/min, apparently discharge planning is in progress, and according to the patient she was cleared by all consultants to go to ECF. However waiting for authorization.WBC count is 19.9 hemoglobin 11.4 basic metabolic profile is normal bicarb is 35 renal profile is normal chest x-ray yesterday showed bibasilar atelectasis. Doubt pneumonia Objective - Vital Signs Vital signs: Vital Signs Temp 98 F 09/11/23 12:00 Pulse 91 09/11/23 12:00 Resp 18 09/11/23 12:00 BP 107/75 09/11/23 12:00 Pulse Ox 91 L 09/11/23 12:00 FiO2 50 09/11/23 04:08 Intake & Output 09/10/23 09/11/23 09/11/23 18:59 06:59 18:59 Intake Total 841 115 7832 Output Total 950 Balance 480 -350 1240 Weight 123.2 kg Intake: Oral 119 007 3979 Output: Urine 950 Other: Voiding Method Bedside Commode Bedside Commode Bedside Commode # Voids 1 2 1 # Bowel Movements 1 - Exam GENERAL EXAM: Reveals a 57-year-old female obese, 5 L Nasal cannula, not in distress HEAD: Normocephalic. EYES: Normal reaction of pupils, equal size. NOSE: Clear with pink turbinates. THROAT: No erythema or exudates. Crowding of the posterior pharynx NECK: Short. No masses, no JVD. CHEST: No chest wall deformity. LUNGS: Fine crackles at the bases. CVS: Irregular irregular rhythm, normal S1 and S2 normal with no audible murmur, ABDOMEN: Obesity, unable to appreciate any hepatosplenomegaly, normal bowel sounds, no guarding or rigidity. SKIN: No rashes CENTRAL NERVOUS SYSTEM: Alert oriented x 3 no gross focal deficit Psychiatric: Normal mood affect and no mental status examination EXTREMITIES: Trace of bipedal edema no clubbing or cyanosis. - Labs CBC & Chem 7: 09/11/23 09:45 09/11/23 09:45 Labs: Abnormal Lab Results - Last 24 Hours (Table) 09/10/23 09/10/23 09/11/23 Range/Units 16:27 19:54 05:44 WBC (3.8-10.6) k/uL MCHC (31.0-37.0) g/dL RDW (11.5-15.5) % Neutrophils # (1.3-7.7) k/uL Chloride (98-107) mmol/L Carbon Dioxide (22-30) mmol/L BUN (7-17) mg/dL Glucose (74-99) mg/dL POC Glucose (mg/dL) 202 H 285 H 128 H (70-110) mg/dL 09/11/23 09/11/23 09/11/23 Range/Units 09:45 09:45 11:23 WBC 19.9 H (3.8-10.6) k/uL MCHC 28.2 L (31.0-37.0) g/dL RDW 19.4 H (11.5-15.5) % Neutrophils # 17.5 H (1.3-7.7) k/uL Chloride 96 L (98-107) mmol/L Carbon Dioxide 35 H (22-30) mmol/L BUN 36 H (7-17) mg/dL Glucose 120 H (74-99) mg/dL POC Glucose (mg/dL) 153 H (70-110) mg/dL Assessment and Plan Assessment: Impression: Chronic atrial fibrillation however the patient presented now with atrial fibrillation and RVR most likely contributing to her pulmonary edema. Acute on chronic hypoxemic respiratory failure secondary to an acute exacerbation of diastolic congestive heart failure with mild increasing interstitial edema bilaterally in addition to increased lower extremity edema bilaterally. Acute on chronic hypercapnic respiratory failure Severe obstructive sleep apnea with an AHI of 41 and titrated to a CPAP pressure of 11 cm of water Childhood asthma and the patient reports that she was intubated in the past on multiple occasions as a child in [facility]. Morbid obesity with a BMI of 50.8 kg/m Prior history of significant tobacco use Acute COPD exacerbation. History of atrial fibrillation. History of hyperlipidemia History of hypertension History of coronary artery disease, with previous PCI/stent placement History of myocardial infarction Chronic anxiety/depression Recommendation: Continue with discharge planning if cleared by other consultants Continue present supportive care measures Continue to titrate FiO2 accordingly presently on 5 L nasal cannula Use BiPAP as needed Continue diuretics as per cardiology Continue Diamox to 50 mg p.o. daily Taper prednisone on outpatient basis Continue metoprolol and amiodarone as well as Eliquis Continue bronchodilators and steroids Will continue to follow Time with Patient: Less than 30
[2023-09-11 16:45] LABS: Glucose,Whole Blood 255 mg/dL (70-110)
[2023-09-11] MEDS: FUROSEMIDE 40 MG TAB PO SCH (17:07)
[2023-09-11 20:19] LABS: Glucose,Whole Blood 191 mg/dL (70-110)
[2023-09-12 03:41] VITALS: RESP 18
--- NOTE | 2023-09-12 05:52 | P.PN ---
Subjective Progress Note Date: 09/11/23 Patient is a 57-year-old female with a past medical history of CAD with stenting, chronic diastolic heart failure, hypertension, hyperlipidemia, chronic atrial fibrillation on anticoagulation with Eliquis, type II dio-aoorgvn-qrgktkpuj diabetes mellitus, chronic venous stasis dermatitis with chronic bilateral lower extremity edema, severe obstructive sleep apnea CPAP dependent, and chronic hypoxic respiratory failure secondary to advanced COPD home oxygen dependent 3 L presented to the ER for worsening shortness of breath. Patient was only discharged on hospital day ago, patient stated she was all right till today when in the afternoon started noticing that her breathing was getting worse. Patient was complaining of her heart beating fast and her chest feeling tight. Patient complains of shortness of breath at rest and on exertion as well. Patient denies any fever or chills. There is no complaint of orthopnea or PND. Because of these worsening symptoms, patient called EMS and she was brought to the ER Initial lab work done in the ER showed WBC 11.1, hemoglobin 12.2, platelet count 271, sodium 137, potassium 4.3, BUN 27, creatinine 0.61, lactate 1.4, troponin 0.012, proBNP 5490 EKG done in the ER showed heart rate of 114, QRS 81, irregular rate and rhythm, no ST segment elevation or depression seen, no T-wave inversions seen. Chest x-ray done in the ER moderate to severe CHF Patient admitted to internal medicine service 08/25. Patient seen and examined. Patient was in respiratory distress overnight, continues to be in A-fib with rapid ventricular rate, was started on amiodarone drip. Currently on BiPAP with FiO2 60% 08/27/2023 Patient today is awake and alert at baseline She still complaining from significant dyspnea, currently on BiPAP She remains on IV Lasix 40 mg twice daily, as well as her Eliquis and prednisone burst taper Amiodarone drip switched to oral amiodarone 400 mg today. 08/28/2023 patient still dyspneic start requiring BiPAP. She Answers Questions Appropriately but Looks Tired She Denies Chest Pain or Abdominal Pain. Blood Pressure Is Borderline and This Morning Was 80/40, Blood Pressure Pills Were Held Patient with No Fever Still Tachypneic but Not Tachycardic Her Creatinine Jumped up 1.0 up to 2.4 Therefore We Switch Her IV Lasix to Oral and Hold Her Lisinopril and Other Blood Pressure Normal This Morning. We'll Keep Monitoring Blood Pressure and Creatinine for Now. We'll Send for Urine Analysis Bladder Scan Is 0 Currently she is on Eliquis 5 mg prednisone 30 mg 08/29/2023 Patient remains on BiPAP, today it is somewhat lower lethargic and harder to wake up. Mostly this is related to her metabolic encephalopathy as she has si gnificantly worsening renal function yesterday up to 2.4 which might be contributing besides other medical problems affecting her mentation. Patient is afebrile, Blood pressure slightly better 90/57, she is still tachypneic with a rate around 25, Labs from today are pending She has renal ultrasound which I reviewed myself showing no hydronephrosis but incidental finding of cholelithiasis 5.5 x 6 2.7 x 1.8 cm. She remains on Eliquis 5 mg, Lasix Cardizem and Aldactone held Continue with metoprolol 100 mg and midodrine 5 mg was added Also she is on amiodarone. 08/30/2023 Patient on BiPAP this morning, she is more awake and alert, she follows commands and answers questions appropriately She still have some difficulty breathing and BiPAP is helping her. She denies abdominal pain or chest pain. Blood pressure improved currently 108/75, patient is tachypneic with a breathing rate 26-27 Chest x-ray showing bibasilar infiltrates Creatinine was 2.8 Patient remains on IV Lasix and prednisone 30 mg and Eliquis 5 mg Aldactone and lisinopril are placed on hold. Midodrine is currently 5 mg 3 og es per day. I am resuming the care of the patient 09/04/2023 Patient fully awake and oriented today She is an 4 L/min of oxygen via nasal cannula, gradually and slowly coming down She still have prolonged expiration and mild basilar crepitation She has a Wolff. No leg edema Abdomen soft and appetite is good Patient hemodynamically stable Her labs look stable and creatinine improved significantly down to 0.8 Lisinopril and Cardizem remains on hold, currently she is on amiodarone 200 mg twice daily, metoprolol increased to 150 mg twice daily and Diamox and Farxiga. Also she is getting midodrine 5 mg 3 times daily. She is on Eliquis 5 mg and Lasix is switched to 40 mg twice daily She is on the steroids 40 mg every 8 hours 09/05/2023 Patient sitting up in chair asking when she can be discharged Explained the patient she is still on 40 L/min of oxygen via nasal high flow cannula and she is agreeable to stay now No chest pain no other new complaint She is still on oral Lasix 40 mg twice daily and potassium chloride 20 mill equivalent Also she is on Solu-Medrol 40 mg 09/06/2023 Patient is currently on IV Solu-Medrol 40 mg and oral Lasix Her breathing treatment continue to improve and currently she is on 12 L/min compared to 40 L yesterday. No chest pain No other complaint She is still on Eliquis 5 mg 09/07/2023 Breathing is improving Oxygen requirement 8 L/min morning morning, down to 6 L in the evening. Continue on IV Solu-Medrol 40 mg, oral Lasix Nystatin for oral thrush 09/08/2023 Breathing is improving significantly Oxygen requirement down to 4 to 5 L/min in the evening time Comfortable no other complaints Continue with oral Lasix and IV Solu-Medrol 09/09/2023 Breathing is improving She is on 4 L oxygen via nasal cannula Patient generally weak, she may benefit from ECF for rehab. On oral Lasix, oral prednisone 40 mg and Eliquis 09/10/2023 Patient is seen and evaluated in follow-up and reports to feeling improved. Patient does use CPAP/BiPAP at night and is currently continued on 5 L via nasal cannula. Patient chronically wears oxygen outpatient. Patient continues with significant weakness with case management following and has been evaluated by physical therapy recommending rehab and patient is agreeable. Patient awaiting insurance authorization for [facility]. Patient has been transition to oral Lasix as well as oral prednisone and will continue to taper with close outpatient follow-up with pulmonary. Patient is afebrile with no r eports of chest pain or worsening shortness of breath. Patient is anxious and wants to get going. Consultations reporting patient is stable for discharge to ECF. Will await insurance authorization 09/11/2023 Patient seen and evaluated today currently on 5 L and tolerating well. Patient is using BiPAP at night and will continue. Continue with DuoNeb treatments and patient has been transition to oral prednisone. Pulmonary following and patient is stable for transfer to [facility] once insurance authorization is obtained. Case management following patient working on insurance which is pending at this patient is afebrile denies worsening shortness of breath, denies chest pain or palpitations. Patient is tolerating diet with no reported nausea or vomiting. Review of systems: Constitutional: No reports of fatigue, fever, or chills Cardiovascular: No reports of chest pain or palpitations Respiratory: No reports of worsening shortness of breath, reports chronic cough GI: No reports of nausea, vomiting, or diarrhea : No reports of dysuria or retention Neurovascular: reports of significant generalized weakness All medications have been reviewed Physical exam: GENERAL: The patient is awake, alert and oriented on 5 L via nasal cannula, BiPAP at night, well-developed, well-nourished, elderly appearing, morbidly obese HEENT: Pupils are round and equally reacting to light. EOMI. No scleral icterus. No conjunctival pallor. Normocephalic, atraumatic. No pharyngeal erythema. No thyromegaly. CARDIOVASCULAR: S1 and S2 muffled PU-LMONARY: Diminished breath sounds bilaterally with coarse rhonchi and minimal expiratory wheezing noted ABDOMEN: Soft, obese nontender, nondistended, normoactive bowel sounds. No palpable organomegaly. MUSCULOSKELETAL: No joint swelling or deformity. EXTREMITIES: No cyanosis, clubbing, or pedal edema. Generalized edema noted bilaterally NEUROLOGICAL: Gross neurological examination did not reveal any focal deficits. Diffusely weak SKIN: No rashes. no petechiae. Assessment: Acute on chronic hypoxic respiratory failure multifactorial secondary to COPD as well as CHF exacerbation Acute on chronic diastolic heart failure exacerbation Acute COPD exacerbation, with chronic oxygen dependency, baseline 3-4 L at all times acute kidney injury Metabolic encephalopathy Cholelithiasis, asymptomatic Severe obstructive sleep apnea. Uses CPAP at night Atrial fibrillation with RVR in pt with Chronic atrial fibrillation on anticoagulation with Eliquis CAD with previous stent Hypertension, currently borderline hypertensive Hyperlipidemia Bilateral lower extremity edema with venous stasis dermatitis. Type II tde-zwyqzfl-pcmeuchxq diabetes mellitus with hemoglobin A1c of 7%. Morbid obesity with BMI of 50.8 kg/m GI prophylaxis DVT prophylaxis Full code Plan: Continue with current medications including continue DuoNeb treatments. Patient is now on oral prednisone and will continue a taper on discharge Continue supplemental oxygen currently on 5 L and recommend to wean as tolerated. Patient chronically wears 3-4 l outpatient. Continue with BiPAP at night PT/OT therapy evaluated patient recommending rehab and patient is agreeable. Patient would like [facility]. Currently awaiting insurance authorization with case management following. Authorization remains pending at this time Due to multiple complex medical issues, prognosis is guarded Possible discharge planning in the next 24 hours The impression and plan of care has been dictated by Virginia Amaya, Nurse Practitioner as directed. Dr. Yared MD I have performed a history and examination and MDM of this patient, discussed the same with the dictator, and agree with the dictator's assessment and plan as written ,documented as a scribe. Based on total visit time, I have performed more than 50% of the visit. Objective - Vital Signs Vital signs: Vital Signs Temp 97.6 F 09/12/23 03:27 Pulse 93 09/12/23 03:27 Resp 18 09/12/23 03:27 BP 123/83 09/12/23 03:27 Pulse Ox 96 09/12/23 03:27 FiO2 50 09/12/23 04:10 Intake & Output 09/11/23 09/11/23 09/12/23 06:59 18:59 06:59 Intake Total 600 2260 Output Total 950 1600 Balance -350 2260 -1600 Weight 123.2 kg 123.6 kg Intake: Oral 600 2260 Output: Urine 950 1600 Other: Voiding Method Bedside Commode Bedside Commode Bedside Commode External Catheter # Voids 2 1 - Labs CBC & Chem 7: 09/11/23 09:45 09/11/23 09:45 Labs: Abnormal Lab Results - Last 24 Hours (Table) 09/11/23 09/11/23 09/11/23 Range/Units 09:45 09:45 11:23 WBC 19.9 H (3.8-10.6) k/uL MCHC 28.2 L (31.0-37.0) g/dL RDW 19.4 H (11.5-15.5) % Neutrophils # 17.5 H (1.3-7.7) k/uL Chloride 96 L (98-107) mmol/L Carbon Dioxide 35 H (22-30) mmol/L BUN 36 H (7-17) mg/dL Glucose 120 H (74-99) mg/dL POC Glucose (mg/dL) 153 H (70-110) mg/dL 09/11/23 09/11/23 Range/Units 16:44 20:18 WBC (3.8-10.6) k/uL MCHC (31.0-37.0) g/dL RDW (11.5-15.5) % Neutrophils # (1.3-7.7) k/uL Chloride (98-107) mmol/L Carbon Dioxide (22-30) mmol/L BUN (7-17) mg/dL Glucose (74-99) mg/dL POC Glucose (mg/dL) 255 H 191 H (70-110) mg/dL
[2023-09-12 06:06] LABS: Glucose,Whole Blood 114 mg/dL (70-110)
--- NOTE | 2023-09-12 11:07 | P.DS ---
Providers Date of admission: 08/24/23 23:17 Expected date of discharge: 09/12/23 Attending physician: Vikas Vail Consults: 08/24/23 23:21 Consult Physician Routine Consulting Provider: Jarrett Solano Consult Reason/Comments: Atrial fibrillation with rapid ventricular Do you want consulting provider notified?: Yes 08/25/23 09:30 Consult Physician Routine Consulting Provider: Ibeth Watson Consult Reason/Comments: COPD, respiratory failure Do you want consulting provider notified?: Yes 08/28/23 08:58 Consult Physician Routine Consulting Provider: Luisa Dow Consult Reason/Comments: alessandro Do you want consulting provider notified?: Yes Primary care physician: Sugey Chester MD Hospital Course: Final diagnosis Acute on chronic hypoxic respiratory failure multifactorial secondary to COPD as well as CHF exacerbation Acute on chronic diastolic heart failure exacerbation Acute COPD exacerbation, with chronic oxygen dependency, baseline 3-4 L at all times acute kidney injury Metabolic encephalopathy Cholelithiasis, asymptomatic Severe obstructive sleep apnea. Uses CPAP at night Atrial fibrillation with RVR in pt with Chronic atrial fibrillation on anticoagu lation with Eliquis CAD with previous stent Hypertension, currently borderline hypertensive Hyperlipidemia Bilateral lower extremity edema with venous stasis dermatitis. Type II ehh-ilcuiqm-zxcxgvrqi diabetes mellitus with hemoglobin A1c of 7%. Morbid obesity with BMI of 50.8 kg/m GI prophylaxis DVT prophylaxis Full code Discharge disposition Patient is being discharged in a stable condition with guarded prognosis to [facility] . Patient will follow-up with Dr. Chester in the outpatient setting upon discharge. Patient is to continue with BiPAP at night, prednisone taper, and close outpatient follow-up with pulmonary as scheduled. Total time taken is greater than 35 minutes. Hospital course This is a 57-year-old female who was recently admitted with increased shortness of breath and COPD as well as CHF exacerbation being closely monitored. Patient has had prolonged hospitalization maintained on BiPAP and has transition to 4-5 L via nasal cannula. Patient chronically wears 4 L. Patient also and has been maintained on BiPAP. Patient to continue with BiPAP. Patient will continue a prednisone taper and continue. Patient has been cleared for discharge to [facility]. Please refer to other consultation notes for further HPI. Patient has had prolonged hospitalization and evaluated by physical therapy recommending rehab and patient is agreeable. Patient has received insurance authorization and will be discharged today. Currently no reports of chest pain, shortness of breath, or palpitations. Patient is afebrile. No reports of nausea or vomiting and patient is tolerating diet. Patient will be going to [facility] today. Guarded prognosis and high risk for readmissions given patient's significant comorbidities. Physical exam: Gen: This is a 57-year-old female who is awake, alert and oriented x 3, well- developed, elderly appearing, morbidly obese HEENT: Head is atraumatic, normocephalic. Pupils equal, round. Sclerae is a nicteric. NECK: Supple. No JVD. No lymphadenopathy. No thyromegaly. LUNGS: Diminished breath sounds bilaterally with scattered coarse rhonchi. Expiratory wheezing noted. No intercostal retractions. HEART: S1, S2 are muffled ABDOMEN: Soft. Obese bowel sounds are present. No masses. No tenderness. EXTREMITIES: No pedal edema. No calf tenderness. Chronic generalized edema noted bilateral lower extremities NEUROLOGICAL: Patient is awake, alert and oriented x3. Cranial nerves 2 through 12 are grossly intact. Diffusely weak Please refer to medication reconciliation sheet for a list of medications. The impression and plan of care has been dictated by Virginia Amaya, Nurse Practitioner as directed. Dr. Yared MD I have performed a history and examination and MDM of this patient, discussed the same with the dictator, and agree with the dictator's assessment and plan as written ,documented as a scribe. Based on total visit time, I have performed more than 50% of the visit. Patient Condition at Discharge: Fair Plan - Discharge Summary Discharge Rx Participant: Yes New Discharge Prescriptions: New Dapagliflozin Propanediol [Farxiga] 10 mg PO DAILY tab Potassium Chloride ER [K-Dur 20] 20 meq PO DAILY tab Dronedarone [Multaq] 400 mg PO AC-BID tab Nitroglycerin Sl Tabs [Nitrostat] 0.4 mg SUBLINGUAL Q5M PRN tab PRN Reason: Chest Pain INSULIN ASPART (NovoLOG) [NovoLOG (formulary)] 0 unit SQ ACHS each predniSONE [Deltasone] 40 mg PO DAILY tab acetaZOLAMIDE [Diamox] 250 mg PO DAILY tab Ipratropium-Albuterol Nebulize [Duoneb 0.5 mg-3 mg/3 ml Soln] 3 ml INHALATION RT-Q2H PRN each PRN Reason: Shortness Of Breath Or Wheezing Ipratropium-Albuterol Nebulize [Duoneb 0.5 mg-3 mg/3 ml Soln] 3 ml INHALATION RT-QID each Furosemide [Lasix] 60 mg PO BID@0900,1600 tab Metoprolol Tartrate [Lopressor] 150 mg PO BID tab Nystatin 100,000 Unit/ml Susp [Mycostatin Oral Susp] 500,000 unit PO QID ml Midodrine [ProAmatine] 5 mg PO AC-TID tab Budesonide-Formot 160-4.5 Mcg [Symbicort 160-4.5 Mcg Inhaler] 2 puff INHALATION RT-BID each Acetaminophen Tab [Tylenol] 650 mg PO Q4HR PRN tab PRN Reason: Mild Pain Or Fever > 100.5 Continue Cetirizine HCl 10 mg PO DAILY Apixaban [Eliquis] 5 mg PO BID Atorvastatin [Lipitor] 40 mg PO HS Dulaglutide [Trulicity] 1.5 mg SQ SA Ergocalciferol [Vitamin D2 (1250 Mcg = 55412 Iu)] 1,250 mcg PO SA Omeprazole 20 mg PO DAILY Gabapentin [Neurontin] 300 mg PO BID #4 cap Folic Acid 1 mg PO DAILY FLUoxetine HCL [PROzac] 40 mg PO DAILY@1200 Mirtazapine [Remeron] 15 mg PO HS Montelukast [Singulair] 10 mg PO HS Fluticasone Nasal [place] [Flonase Nasal [place]] 2 spray EA NOSTRIL DAILY ml guaiFENesin [Mucinex] 1,200 mg PO Q12HR tab HYDROcodone/APAP 10-325MG [[place] 10-325] 1 tab PO TID #4 tab Discontinued lisinopriL [Zestril] 5 mg PO DAILY Furosemide [Lasix] 40 mg PO BID@0900,1600 #60 tab Ipratropium-Albuterol Nebulize [Duoneb 0.5 mg-3 mg/3 ml Soln] 3 ml INHALATION RT-QID Metoprolol Tartrate [Lopressor] 100 mg PO BID Spironolactone [Aldactone] 25 mg PO DAILY 90 Days #90 tab predniSONE See Taper PO DIRECTED 16 Days #40 tab Discharge Medication List Apixaban [Eliquis] 5 mg PO BID 10/26/22 [History] Atorvastatin [Lipitor] 40 mg PO HS 10/26/22 [History] Cetirizine HCl 10 mg PO DAILY 10/26/22 [History] FLUoxetine HCL [PROzac] 40 mg PO DAILY@1200 10/26/22 [History] Folic Acid 1 mg PO DAILY 10/26/22 [History] Mirtazapine [Remeron] 15 mg PO HS 10/26/22 [History] Montelukast [Singulair] 10 mg PO HS 10/26/22 [History] Dulaglutide [Trulicity] 1.5 mg SQ SA 06/21/23 [History] Ergocalciferol [Vitamin D2 (1250 Mcg = 76300 Iu)] 1,250 mcg PO SA 06/21/23 [History] Omeprazole 20 mg PO DAILY 06/21/23 [History] Fluticasone Nasal [place] [Flonase Nasal [place]] 2 spray EA NOSTRIL DAILY ml 06/27/23 [Rx] guaiFENesin [Mucinex] 1,200 mg PO Q12HR tab 06/27/23 [Rx] Acetaminophen Tab [Tylenol] 650 mg PO Q4HR PRN tab 09/11/23 [Rx] Budesonide-Formot 160-4.5 Mcg [Symbicort 160-4.5 Mcg Inhaler] 2 puff INHALATION RT-BID each 09/11/23 [Rx] Dapagliflozin Propanediol [Farxiga] 10 mg PO DAILY tab 09/11/23 [Rx] Dronedarone [Multaq] 400 mg PO AC-BID tab 09/11/23 [Rx] Furosemide [Lasix] 60 mg PO BID@0900,1600 tab 09/11/23 [Rx] Gabapentin [Neurontin] 300 mg PO BID #4 cap 09/11/23 [Rx] HYDROcodone/APAP 10-325MG [[place] 10-325] 1 tab PO TID #4 tab 09/11/23 [Rx] INSULIN ASPART (NovoLOG) [NovoLOG (formulary)] 0 unit SQ ACHS each 09/11/23 [Rx] Ipratropium-Albuterol Nebulize [Duoneb 0.5 mg-3 mg/3 ml Soln] 3 ml INHALATION RT-Q2H PRN each 09/11/23 [Rx] Ipratropium-Albuterol Nebulize [Duoneb 0.5 mg-3 mg/3 ml Soln] 3 ml INHALATION RT-QID each 09/11/23 [Rx] Metoprolol Tartrate [Lopressor] 150 mg PO BID tab 09/11/23 [Rx] Midodrine [ProAmatine] 5 mg PO AC-TID tab 09/11/23 [Rx] Nitroglycerin Sl Tabs [Nitrostat] 0.4 mg SUBLINGUAL Q5M PRN tab 09/11/23 [Rx] Nystatin 100,000 Unit/ml Susp [Mycostatin Oral Susp] 500,000 unit PO QID ml 09/11/23 [Rx] Potassium Chloride ER [K-Dur 20] 20 meq PO DAILY tab 09/11/23 [Rx] acetaZOLAMIDE [Diamox] 250 mg PO DAILY tab 09/11/23 [Rx] predniSONE [Deltasone] 40 mg PO DAILY tab 09/11/23 [Rx] Follow up Appointment(s)/Referral(s): Bernardino Lemus DO [Doctor of Osteopathic Medicine] - 1 Week Sugey Chester MD [Primary Care Provider] - 1-2 days Activity/Diet/Wound Care/Special Instructions: Bipap 10/11 50% FIO2 at hs 5L/NC 18/12 Discharge Disposition: TRANSFER TO SNF/ECF
--- NOTE | 2023-09-12 11:20 | P.PN ---
Subjective patient is seen for follow-up for acute kidney injury. renal function has improved and staying at baseline. Maintained on oral Lasixwhich was increased to 60 mg twice a day No significant complaints today. patient wants to go home. Objective - Vital Signs Vital signs: Vital Signs Temp 98 F 09/12/23 08:00 Pulse 96 09/12/23 09:21 Resp 18 09/12/23 03:27 BP 117/82 09/12/23 08:00 Pulse Ox 93 L 09/12/23 09:08 FiO2 50 09/12/23 04:10 Intake & Output 09/11/23 09/12/23 09/12/23 18:59 06:59 18:59 Intake Total 2260 300 180 Output Total 1600 Balance 2260 -1300 180 Weight 123.6 kg Intake: Oral 2260 300 180 Output: Urine 1600 Other: Voiding Method Bedside Commode Bedside Commode External Catheter # Voids 1 - Exam patient is awake, comfortable Examination of the heart S1 and S2 Examination of the lungs bilateral breath sounds are heard decreased breath sounds at the bases Abdomen is soft morbidly obese Examination of lower extremity shows edema 1+ bilaterally [employer]ATOR 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 intact - Labs CBC & Chem 7: 09/11/23 09:45 09/11/23 09:45 Labs: Abnormal Lab Results - Last 24 Hours (Table) 09/11/23 09/11/23 09/11/23 Range/Units 11:23 16:44 20:18 POC Glucose (mg/dL) 153 H 255 H 191 H (70-110) mg/dL 09/12/23 Range/Units 06:04 POC Glucose (mg/dL) 114 H (70-110) mg/dL Assessment and Plan Assessment: 1. Acute kidney injury secondary to hypotension in the setting of use of ABA inhibitor's. improved. serum creatinine at 0.87. UA is quite benign. 2. Hyperkalemia associated with acute kidney injury, resolved 3. Acute hypoxic respiratory failure secondary to CHF exacerbation, improved 4. Chronic diastolic heart failure 5. Metabolic alkalosis associated with underlying COPD and diuresis Plan: continue oral Lasix. dose to 60 mg twice a day Continue with midodrine continue Diamox monitor renal function as outpatient.
[2023-09-12 11:34] LABS: Glucose,Whole Blood 140 mg/dL (70-110)
[2023-09-12 12:44] VITALS: BMI 48.2
[2023-09-12 13:25] VITALS: BP 130/86; TEMP 97.6
--- NOTE | 2023-09-12 14:04 | P.PN ---
Subjective Progress Note Date: 09/12/23 Principal diagnosis: Acute on chronic hypoxemic respiratory failure secondary to an acute exacerbation of diastolic congestive heart failure This is a 57-year-old female familiar to our service, patient has been recently admitted and discharged, we saw her on consultation for her COPD and obesity hypoventilation syndrome, with chronic hypoxic respiratory failure, patient how ever has been recently admitted with atrial fibrillation RVR, and pulmonary edema related to her atrial fibrillation with RVR. She was just discharged 3 days ago by cardiology, patient was readmitted this time with a similar presentation mostly shortness of breath, atrial fibrillation with RVR, and requiring BiPAP treatment upon admission mostly because of her hypoxia and hypercapnia. Patient is morbidly obese, and I saw her again today in the morning for her shortness of breath. Patient was noted to be on BiPAP, 14/6/60%, and her O2 saturation was in the 90s. Patient was hemodynamically s table, her rate seems to be poorly controlled, and cardiology is to address her cardiac arrhythmia/atrial fibrillation with RVR looking back at this patient's history, she is 57 years old with known history of coronary artery disease and stenting, chronic diastolic congestive heart failure, hypertension, chronic atrial fibrillation on Eliquis, non-insulin dependent diabetes, history of chronic venous stasis changes, history of COPD, obstructive sleep apnea syndrome, obesity hypoventilation syndrome, and again as noted above patient had multiple admissions with similar presentation to the hospital Chest x-ray on this admission clearly showed evidence of moderate to severe congestive heart failure Patient was reevaluated today on 08/26/2023, remains on BiPAP, 16/6/60%, patient continues to have some shortness of breath and intermittent episodes of cough. Chest x-ray is showing improvement in her pulmonary edema, doubt underlying pneumonia. Her atrial fibrillation seems to be better controlled. ABG earlier this morning showed a pO2 of 67 pCO2 67 pH of 7.36 WBC count is 9.8 hemoglobin 11.1 basic metabolic profile is normal, renal profile is normal On 09/06/2023, the patient is feeling well. She is on Airvo and she is at 35 L with an FiO2 of 35%. I am going to transition this patient to nasal cannula high flow at 15 L. Will gradually going to wean down FiO2 as tolerated to shanelle ntain a saturation above 90%. For the most part, the patient is doing well. She is producing adequate amount of urine output. Less bronchospastic and wheezy. Remains on bronchodilators. Remains on IV Solu-Medrol. Currently she is on Lasix 40 mg p.o. twice a day. She is also on anticoagulants 5 mg p.o. twice a day. She is utilizing the incentive spirometer. BUN is at 48 with a creatinine of 0.9 and sodium levels of 137. No other significant events otherwise for now. No signs of any altered mentation. Clinically stable. On today's evaluation of 09/07/2023, the patient is currently down to 10 L of oxygen by nasal cannula. I was able to cut her down to 8 L and wean the process of weaning this patient down further. She is doing well. No specific complaints. Airvo system has been discontinued. No new labs are available from today. She remains on bronchodilators and steroids. She is on oral Lasix 40 mg p.o. twice a day she is also on Diamox to 50 mg p.o. daily patient remains on anticoagulation with Eliquis 5 mg twice a day. Sitting up in a chair calm and comfortable remains on IV Solu-Medrol 40 mg every 6 hours. On today's evaluation of 09/08/19, the patient is being seen for a follow-up. This point in time the patient is on 7 L of oxygen by nasal cannula. She is doing well. No specific complaints. BUN is at 50 with a creatinine of 0.9 and sodium levels at 138, WBC count is 11.3 with a hemoglobin of 11.6. The patient remains on Diamox to 50 mg p.o. daily. The patient is also on Lasix 40 mg p.o. twice a day. She remains anticoagulation with Eliquis 5 mg twice a day. Rest of the medication remains unchanged. The patient was kept on IV Solu-Medrol for the time of discharge and following that the patient placed on a prednisone burst taper. Her condition is stable and the patient wants to go to [facility] On today's evaluation of 09/09/2023, the patient is doing well. The patient has been weaned down to 5 L of oxygen by nasal cannula. No respiratory distress. No cough sputum production chest tightness or wheezing. No new labs are available from today. She remains on DuoNe updrafts. She is also on IV Solu- Medrol as the patient will be switched to prednisone burst taper as of today. She is on Lasix 40 mg twice a day. She remains on anticoagulation with Eliquis 5 mg p.o. twice a day. No other new complaints otherwise for now. Patient was evaluated today on 09/10/2023, patient is now on 5 L nasal cannula high flow, O2 saturation 90%, blood pressure is 120/68, she feels better, breathing easier, patient is asking to be discharged home, patient has home O2, she has BiPAP machine at home, and I felt that the patient needs to be cleared by cardiology before clearing her for discharge by self. Her main presentation was mostly a cardiac presentation with congestive heart failure, atrial fibrillation with RVR, and patient had frequent admissions with similar presentations in the past.Patient has leukocytosis with WBC of 26.4 hemoglobin is 12.6 basic metabolic profile is normal renal profile is normal bicarb is 35 chest x-ray showed mostly mild congestive heart failure with bibasilar atelectasis and cardiomegaly Reevaluate today on 09/11/2023, patient is on nasal cannula at 5 L/min, apparently discharge planning is in progress, and according to the patient she was cleared by all consultants to go to [facility]. However waiting for authorization.WBC count is 19.9 hemoglobin 11.4 basic metabolic profile is normal bicarb is 35 renal profile is normal chest x-ray yesterday showed bibasilar atelectasis. Doubt pneumonia Reevaluate today on 09/12/2023, remains on 5 L nasal cannula, patient is doing well, asymptomatic, she feels she is even better than her baseline, and definitely would like to be discharged to [facility] today if possible. Apparently patient had full authorization, and discharge planning is pending at this point. No labs today except a blood sugar of 140 Objective - Vital Signs Vital signs: Vital Signs Temp 97.6 F 09/12/23 12:49 Pulse 108 H 09/12/23 12:49 Resp 18 09/12/23 12:49 BP 130/86 09/12/23 12:49 Pulse Ox 92 L 09/12/23 12:49 FiO2 50 09/12/23 04:10 Intake & Output 09/11/23 09/12/23 09/12/23 18:59 06:59 18:59 Intake Total 2260 300 300 Output Total 1600 Balance 2260 -1300 300 Weight 123.6 kg 123.6 kg Intake: Oral 2260 300 300 Output: Urine 1600 Other: Voiding Method Bedside Commode Bedside Commode Bedside Commode External Catheter External Catheter # Voids 1 - Exam GENERAL EXAM: Reveals a 57-year-old female obese, 5 L Nasal cannula, not in distress the patient normally has 5 L at home HEAD: Normocephalic. EYES: Normal reaction of pupils, equal size. NOSE: Clear with pink turbinates. THROAT: No erythema or exudates. Crowding of the posterior pharynx NECK: Short. No masses, no JVD. CHEST: No chest wall deformity. LUNGS: Minich breath sounds at the bases no rhonchi no wheezes CVS: Irregular irregular rhythm, normal S1 and S2 normal with no audible murmur, ABDOMEN: Obesity, unable to appreciate any hepatosplenomegaly, normal bowel sounds, no guarding or rigidity. SKIN: No rashes CENTRAL NERVOUS SYSTEM: Alert oriented x 3 no gross focal deficit Psychiatric: Normal mood affect and no mental status examination EXTREMITIES: Trace of bipedal edema no clubbing or cyanosis. - Labs CBC & Chem 7: 09/11/23 09:45 09/11/23 09:45 Labs: Abnormal Lab Results - Last 24 Hours (Table) 09/11/23 09/11/23 09/12/23 Range/Units 16:44 20:18 06:04 POC Glucose (mg/dL) 255 H 191 H 114 H (70-110) mg/dL 09/12/23 Range/Units 11:33 POC Glucose (mg/dL) 140 H (70-110) mg/dL Assessment and Plan Assessment: Impression: Chronic atrial fibrillation however the patient presented now with atrial fibrillation and RVR most likely contributing to her pulmonary edema. Acute on chronic hypoxemic respiratory failure secondary to an acute exacerbation of diastolic congestive heart failure with mild increasing interstitial edema bilaterally in addition to increased lower extremity edema bilaterally. Acute on chronic hypercapnic respiratory failure Severe obstructive sleep apnea with an AHI of 41 and titrated to a CPAP pressure of 11 cm of water Childhood asthma and the patient reports that she was intubated in the past on multiple occasions as a child in [facility]. Morbid obesity with a BMI of 50.8 kg/m Prior history of significant tobacco use Acute COPD exacerbation. History of atrial fibrillation. History of hyperlipidemia History of hypertension History of coronary artery disease, with previous PCI/stent placement History of myocardial infarction Chronic anxiety/depression Recommendation: Cleared from my perspective for discharge planning as long as cleared by other consultants Continue present supportive care measures Continue to titrate FiO2 accordingly presently on 5 L nasal cannula Use BiPAP as needed Continue diuretics as per cardiology Taper prednisone on outpatient basis Continue metoprolol and amiodarone as well as Eliquis Continue bronchodilators and steroids Cleared to go to ECF today Time with Patient: Less than 30
[2023-09-12 16:12] VITALS: PULSE 104
== END 2023-09-12 16:08 | DRG 194 ==
LOC: EC 20:57 → 3SCARD 23:17
PROVIDERS: ADMIT Hospitalist; ATTEND Hospitalist
PROC: 5A09557 Assistance with Respiratory Ventilation, Greater than 96 Consecutive Hours, Continuous Positive Airway Pressure (ICD-10-PCS; principal; 2023-08-24)
PROC: 05HB33Z Insertion of Infusion Device into Right Basilic Vein, Percutaneous Approach (ICD-10-PCS; 2023-09-03 16:00)
PROC: 05HD33Z Insertion of Infusion Device into Right Cephalic Vein, Percutaneous Approach (ICD-10-PCS; 2023-09-05)
DX: I13.0 Hypertensive heart and chronic kidney disease with heart failure and stage 1 through stage 4 chronic kidney disease, or unspecified chronic kidney disease (principal); B37.0 Candidal stomatitis; I50.33 Acute on chronic diastolic (congestive) heart failure; N17.0 Acute kidney failure with tubular necrosis; E11.22 Type 2 diabetes mellitus with diabetic chronic kidney disease; E66.2 Morbid (severe) obesity with alveolar hypoventilation; Z68.43 Body mass index [BMI] 50.0-59.9, adult; E87.3 Alkalosis; E87.6 Hypokalemia; J44.1 Chronic obstructive pulmonary disease with (acute) exacerbation; J84.10 Pulmonary fibrosis, unspecified; T50.2X5A Adverse effect of carbonic-anhydrase inhibitors, benzothiadiazides and other diuretics, initial encounter; F32.A Depression, unspecified; F41.9 Anxiety disorder, unspecified; G93.41 Metabolic encephalopathy; J96.22 Acute and chronic respiratory failure with hypercapnia; I25.10 Atherosclerotic heart disease of native coronary artery without angina pectoris; N18.9 Chronic kidney disease, unspecified; J96.21 Acute and chronic respiratory failure with hypoxia; Z99.81 Dependence on supplemental oxygen; I95.9 Hypotension, unspecified; Z79.01 Long term (current) use of anticoagulants; I48.19 Other persistent atrial fibrillation; J45.909 Unspecified asthma, uncomplicated; I87.2 Venous insufficiency (chronic) (peripheral); I87.8 Other specified disorders of veins; E87.5 Hyperkalemia; E78.5 Hyperlipidemia, unspecified; T46.4X5A Adverse effect of angiotensin-converting-enzyme inhibitors, initial encounter; J98.11 Atelectasis; I25.2 Old myocardial infarction; K80.20 Calculus of gallbladder without cholecystitis without obstruction; Z79.84 Long term (current) use of oral hypoglycemic drugs; Z79.899 Other long term (current) drug therapy; Z95.5 Presence of coronary angioplasty implant and graft; Z79.52 Long term (current) use of systemic steroids; Z87.891 Personal history of nicotine dependence; Z71.3 Dietary counseling and surveillance
CPT/HCPCS: 36410; 36415; 36600; 71045; 76770; 76937; 80048; 80053; 80061; 81001; 82805; 83605; 83735; 83880; 84145; 84484; 85025; 85027; 85610; 85730; 87040; 93005; 93017; 93308; 94640; 94660; 94760; 96374; 96375; 96376; 99291